=== PATIENT | female | born 1980 | race Caucasian/White ===

== ENCOUNTER 2017-11-26 11:10 | Emergency (ER) | payer OTHER ==
--- OUTSIDE RECORDS SUMMARY | 2017-11-26 11:28 | XMS REPORT | Continuity of Care Document ---
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 PO, Q12H, # 14 2015 [Pepcid] tab, 0 Refill(s) azithromycin 250 250 mg=1 tab, Active mg oral tablet PO, Daily, X 4 2015, # 4 tab, 0 Refill(s) Protonix 40 mg, 1 tab, No Longer Route: PO, Drug 2015 form: ECTAB, BID, Dosing Weight 77.6, kg, Priority: NOW, Start date: 07/18/15 19:17:00 CDT, Duration: 30 day, Stop date: 08/17/15 17:00:00 CDTNotes: Tablet should not be chewed or crushed. (Same as: Protonix) Phenergan 25 mg, 50 mL, No Longer Route: IVPB, Active 2015 [facility] Drug form: SOLN, Q6H, Dosing Weight 77.6, kg, PRN Nausea & Vomiting, Priority: STAT, Start date: 07/18/15 19:17:00 CDT, Duration: 30 day, Stop date: 08/17/15 19:16:00 CDT GI cocktail 30 ml, Route: No Longer PO, Drug Form: Active 2015 SUSP, Dosing Weight 77.6, kg, Q4H, PRN Indigestion, Routine, Start date: 07/18/15 19:16:00 CDT, Duration: 30 day, Stop date: 08/17/15 19:15:00 CDT, DYSPEPSIANotes: G.I. Cocktail=antaci d with simethicone 22.5 mL - lidocaine viscous 7.5 mL Lovenox 40 mg, 0.4 mL, No Longer Route: SUB-Q, Active 2015 [facility] Drug form: INJ, [id number], Dosing Weight 77.6, kg, Start date: 07/18/15 17:00:00 CDT, Duration: 30 day, Stop date: 08/16/15 17:00:00 CDTNotes: (Same as: Lovenox) ferrous sulfate 325 mg, 1 tab, No Longer Route: PO, Drug Active 2015 [facility] form: TAB, Daily, Dosing Weight 77.6, kg, Priority: NOW, Start date: 07/18/15 16:53:00 CDT, Duration: 30 day, Stop date: 08/17/15 9:00:00 CDTNotes: Give with food. iron elemental [id number] as ferrous sulfate Dose=___mg elemental iron Azithromycin 500 mg, Route: No Longer IVPB, [id number], Active 2015 [facility] Dosing Weight 77.6, kg, Priority: NOW, Start date: 07/18/15 16:44:00 CDT, Duration: 30 day, Stop date: 08/16/15 16:44:00 CDTNotes: (Same As: Zithromax IV) Prednisone 40 mg, 2 tab, No Longer Route: PO, Drug Active 2015 [facility] form: TAB, Daily, Dosing Weight 77.6, kg, Priority: NOW, Start date: 07/18/15 15:51:00 CDT, Duration: 30 day, Stop date: 08/17/15 9:00:00 CDTNotes: Take with food. Benadryl 25 mg, 1 tab, No Longer Route: PO, Drug Active 2015 [facility] form: TAB, TID, Dosing Weight 77.6, kg, PRN Itching, Start date: 07/18/15 15:49:00 CDT, Duration: 30 day, Stop date: 08/17/15 15:48:00 CDT Albuterol 0.833 3 ml, Route: No Longer MG/ML / NEB, Drug Form: Active 2015 [facility] Ipratropium SOLN, Dosing [place] 0.167 Weight 77.6, MG/ML Inhalant kg, [id number], Solution [DuoNeb] PRN as needed for shortness of breath or wheezing, Start date: 07/18/15 9:58:00 CDT, Duration: 30 day, Stop date: 08/17/15 9:57:00 CDTNotes: (Same as: Duoneb) Ativan 1 mg, 0.5 mL, Inactive Route: IVP, 2015 [facility] Drug form: INJ, ONCE, Dosing Weight 77.6, kg, PRN Anxiety, Start date: 07/18/15 9:56:00 CDTNotes: (Same as: Ativan) Thyroxine 75 microgram, 1 No Longer tab, Route: PO, Active 2015 [facility] Drug form: TAB, Daily, Dosing Weight 77.6, kg, Start date: 07/18/15 6:30:00 CDT, Duration: 30 day, Stop date: 08/16/15 6:30:00 CDTNotes: Take 1 hour before or 2 hours after meal; Enteral feeds may interefere with the absorption of this medication. (Same as:Synthroid, Levothroid) Seroquel 400 mg, 4 tab, No Longer Route: PO, Drug Active 2015 [facility] form: TAB, Daily, Dosing Weight 77.6, kg, Start date: 07/17/15 21:00:00 CDT, Duration: 30 day, Stop date: 08/15/15 21:00:00 CDTNotes: (Same as: SEROquel) pantoprazole 40 mg, 1 tab, Inactive Route: PO, Drug 2015 [facility] form: ECTAB, Before Dinner, Dosing Weight 75, kg, Start date: 07/17/15 16:30:00 CDT, Duration: 30 day, Stop date: 08/15/15 16:30:00 CDTNotes: Tablet should not be chewed or crushed. (Same as: Protonix) Albuterol 0.833 3 ml, Route: No Longer MG/ML / NEB, Drug Form: Active 2015 [facility] Ipratropium SOLN, Dosing [place] 0.167 Weight 77.6, MG/ML Inhalant kg, [id number], Solution [DuoNeb] Start date: 07/17/15 15:00:00 CDT, Duration: 30 day, Stop date: 08/16/15 11:00:00 CDTNotes: (Same as: Duoneb) Solu-Medrol 60 mg, 1.5 mL, No Longer Route: IV, Drug Active 2015 [facility] form: INJ, Q6H, Dosing Weight 77.6, kg, Start date: 07/17/15 12:00:00 CDT, Duration: 30 day, Stop date: 08/16/15 6:00:00 CDTNotes: (Same as:Solu-MEDROL, A-Methapred) Benadryl 25 mg, 1 tab, No Longer Route: PO, Drug Active 2015 [facility] form: TAB, Q4H, Dosing Weight 77.6, kg, Start date: 07/17/15 12:00:00 CDT, Duration: 30 day, Stop date: 08/16/15 8:00:00 CDT Robitussin-AC 5 ml, Route: No Longer oral syrup PO, Drug Form: Active 2015 [facility] LIQ, Dosing Weight 77.6, kg, Q4H, PRN Cough/Congestio n, Start date: 07/17/15 11:59:00 CDT, Duration: 30 day, Stop date: 08/16/15 11:58:00 CDTNotes: (Same As: Robitussin AC) Albuterol 0.833 3 ml, Route: Inactive MG/ML / NEB, Drug Form: 2015 [facility] Ipratropium SOLN, Dosing [place] 0.167 Weight 77.6, MG/ML Inhalant kg, PRN, PRN Solution [DuoNeb] Respiratory Protocol, Start date: 07/17/15 11:59:00 CDT, Duration: 30 day, Stop date: 08/16/15 11:58:00 CDT Hydroxyzine 50 mg, PO, QID, Active Hydrochloride 50 PRN as needed 2015 [place] [facility] Oral Tablet for anxiety hydrOXYzine 50 mg, 2 tab, No Longer hydrochloride 25 Route: PO, Drug Active 2015 [place] mg oral tablet form: TAB, QID, PRN Anxiety, Start date: 07/17/15 10:30:00 CDT, Duration: 30 day, Stop date: 08/16/15 10:29:00 CDTNotes: (Same as: Atarax) Avoid alcohol. lamotrigine 100 100 mg, 1 tab, No Longer MG Oral Tablet Route: PO, Drug Active 2015 [facility] form: TAB, BID, Dosing Weight 77.6, kg, Start date: 07/17/15 10:00:00 CDT, Duration: 30 day, Stop date: 08/16/15 9:00:00 CDTNotes: (Same as:LaMICtal) Cymbalta 60 mg, 1 cap, No Longer Route: PO, Drug Active 2015 [facility] form: DRC, BID, Dosing Weight 77.6, kg, Start date: 07/17/15 10:00:00 CDT, Duration: 30 day, Stop date: 08/16/15 9:00:00 CDTNotes: (Same as: Cymbalta) (Do Not Crush) Famotidine 20 MG 20 mg, 1 tab, No Longer Oral Tablet Route: PO, Drug Active 2015 [Pepcid] form: TAB, Q12H, Dosing Weight 77.6, kg, Priority: NOW, Start date: 07/17/15 9:04:00 CDT, Duration: 30 day, Stop date: 08/16/15 9:00:00 CDTNotes: (Same as: Pepcid) Hydroxyzine 50 mg, 1 cap, Inactive Hydrochloride 50 Route: PO, Drug 2015 [facility] Oral Capsule form: CAP, QID, Dosing Weight 77.6, kg, PRN Anxiety, Start date: 07/17/15 9:03:00 CDT, Duration: 30 day, Stop date: 08/16/15 9:02:00 CDT Pepcid 20 mg, 2 mL, Inactive Route: IV, Drug 2015 form: INJ, Q12H, Dosing Weight 75, kg, Start date: 07/17/15 9:00:00 CDT, Duration: 30 day, Stop date: 08/15/15 21:00:00 CDT, Notes: (Same as: Pepcid) Can be dilute in 5-10cc NS IVP: Slow IV push over at least 2 minutes. Saline Flush 0.9% 10 ml, Route: No Longer IVP, Drug Form: Active 2015 INJ, Dosing Weight 75, kg, Q12H, Start date: 07/17/15 9:00:00 CDT, Duration: 30 day, Stop date: 08/15/15 21:00:00 CDTNotes: (Same as: BD Posiflush) Hydroxyzine 50 mg=1 cap, Inactive Hydrochloride 50 PO, QID, PRN 2015 [place] MG Oral Capsule Anxiety, # 40 cap, 0 Refill(s) Insulin, Aspart, 2 unit, 0.02 No Longer Human mL, Route: Active 2015 [facility] SUB-Q, Drug form: SOLN, Sliding Scale, Dosing Weight 77.6, kg, PRN Blood Glucose Results, Start date: 07/17/15 7:27:00 CDT, Duration: 30 day, Stop date: 08/16/15 7:26:00 CDTNotes: Roll in palms of hands gently; Do not shake vigorously. (Same as: NovoLOG) "single patient use only" WASTE: F/P - Black; E - Municipal Trash Bin Stable for 28 days at room temperature. Expires in days from D ate Glucagon 1 mg, Route: No Longer IM, Drug form: Active 2015 [facility] PDR/INJ, PRN, Dosing Weight 77.6, kg, PRN Blood Glucose Results, Start date: 07/17/15 7:27:00 CDT, Duration: 30 day, Stop date: 08/16/15 7:26:00 CDT Dextrose 50% 25 gm, 50 mL, No Longer Syringe Route: IVP, Active 2015 [facility] Drug Form: INJ, Dosing Weight 77.6, kg, PRN, PRN Blood Glucose Results, Start date: 07/17/15 7:27:00 CDT, Duration: 30 day, Stop date: 08/16/15 7:26:00 CDT Acetaminophen 325 1 tab, PO, Q6H, Active MG / Hydrocodone PRN Pain, # 28 2015 [facility] Bitartrate 7.5 MG tab, 0 Oral Tablet Refill(s) Benadryl 12.5 mg, 0.25 No Longer mL, Route: IVP, Active 2015 [facility] Drug form: INJ, Q4H, Dosing Weight 75, kg, Priority: STAT, Start date: 07/16/15 21:29:00 CDT, Stop date: 08/15/15 20:00:00 CDTNotes: (Same as: Benadryl) Calcium Carbonate 500 mg, 1 tab, No Longer 500 MG Chewable Route: PO, Drug Active 2015 Tablet form: CHEWTAB, PRN, Dosing Weight 75, kg, PRN Abnormal Lab Result, FOR ICU USE ONLY, Start date: 07/16/15 21:26:00 CDT, Duration: 30 day, Stop date: 08/15/15 21:25:00 CDTNotes: (Same As: Tums) Calcium Carbonate 500 vp=226 mg elemental calcium Dose= mg calcium carbonate ( mg elemental calcium) Calcium Gluconate 1 gm, 10 mL, No Longer Route: [id number] PRN, Dosing Weight 75, kg, PRN Abnormal Lab Result, Start date: 07/16/15 21:26:00 CDT, Duration: 30 day, Stop date: 08/15/15 21:25:00 CDT, FOR ICU USE ONLYNotes: WASTE: F/P - Sink; E - Municipal Trash Bin potassium 20 mEq, 100 mL, No Longer chloride Route: IVPB 2015 Drug form: INJ, PRN, Dosing Weight 75, kg, PRN Abnormal Lab Result, Via central line, Start date: 07/16/15 21:26:00 CDT, Duration: 30 day, Stop date: 08/15/15 21:25:00 CDT, FOR ICU USE ONLYNotes: (Same as: KCL) Infuse no faster than 10 mEq/hr if given peripherally. sodium phosphate 15 mmol, 5 mL, No Longer + Sodium Chloride Route: [id number] 0.9% IV 250 mL PRN, Dosing Weight 75, kg, PRN Abnormal Lab Result, Start date: 07/16/15 21:26:00 CDT, Duration: 30 day, Stop date: 08/15/15 21:25:00 CDT, FOR ICU USE ONLY potassium 15 mmol, 5 mL, No Longer phosphate + Route: [id number] Sodium Chloride PRN, Dosing 0.9% IV 250 mL Weight 75, kg, PRN Abnormal Lab Result, Start date: 07/16/15 21:26:00 CDT, Duration: 30 day, Stop date: 08/15/15 21:25:00 CDT, FOR ICU USE ONLYNotes: (Same as: K Phosphate.) 1 mMol phoshate has 1.47 mEq potassium Infuse over 4 hours Magnesium Sulfate 2 gm, 50 mL, No Longer Route: IVPB, Active 2015 [facility] Drug form: INJ, PRN, Dosing Weight 75, kg, PRN Abnormal Lab Result, Start date: 07/16/15 21:26:00 CDT, Duration: 30 day, Stop date: 08/15/15 21:25:00 CDT, FOR ICU USE ONLYNotes: WASTE: F/P - Sink; E - Municipal Trash Bin Neutra-Phos 2 pkt, Route: No Longer PO, Drug Form: Active 2015 [facility] PDR/REC, Dosing Weight 75, kg, PRN, PRN Abnormal Lab Result, FOR ICU USE ONLY, Start date: 07/16/15 21:26:00 CDT, Duration: 30 day, Stop date: 08/15/15 21:25:00 CDTNotes: (Same as: Neutra-Phos) Each 1.25 gm pkt has 250mg phosphorous. Mix w/2.5oz water and stir. Magnesium Oxide 800 mg, 2 tab, No Longer Route: PO, Drug Active 2015 [facility] form: TAB, PRN, Dosing Weight 75, kg, PRN Abnormal Lab Result, FOR ICU USE ONLY, Start date: 07/16/15 21:26:00 CDT, Duration: 30 day, Stop date: 08/15/15::00 CDTNotes: (Same as: Mag-Ox 400) Magnesium oxide 183oz=015qa elemental magnesium Dose=____mg magnesium oxide (___mg elemental magnesium) Acetaminophen 325 2 tab, Route: No Longer MG / Hydrocodone PO, Drug Form: Active 2015 [facility] Bitartrate 5 MG TAB, Dosing Oral Tablet Weight 75, kg, [[place] 5/325] Q4H, PRN Pain Score 4-6, Start date: 07/16/15:26:00 CDT, Duration: 30 day, Stop date: 08/15/15 21:: CDTNotes: (Same as: [place] 325/5) Do not exceed 4gm/day of acetaminophen. Morphine 2 mg, 1 mL, No Longer Route: IVP, Active 2015 [facility] Drug form: INJ, Q2H, Dosing Weight 75, kg, PRN Pain Score 7-10, Start date: 07/16/15:26:00 CDT, Duration: 30 day, Stop date: 08/15/15:: CDTNotes: (Same as:MORPhine Sulfate) Saline Flush 0.9% 10 ml, Route: No Longer IVP, Drug Form: 2015 [facility] INJ, Dosing Weight 75, kg, PRN, PRN Line Flush, Start date: 07/16/15:26:00 CDT, Duration: 30 day, Stop date: 08/15/15:: CDTNotes: (Same as: BD Posiflush) Lactulose 20 gm, 30 ml, No Longer Route: PO, Drug Active 2015 [facility] Form: SYRP, Dosing Weight 75, kg, Q6H, PRN as needed for constipation, Start date: 07/16/15:26:00 CDT, Duration: 30 day, Stop date: 08/15/15:: CDTNotes: (Same as:Chronulac) Docusate 100 mg, 1 cap, No Longer Route: PO, Drug Active 2015 [facility] form: CAP, Q12H, Dosing Weight 75, kg, PRN as needed for constipation, Start date: 07/16/15:26:00 CDT, Duration: 30 day, Stop date: 08/15/15:: CDTNotes: (Same as: Colace) (Do Not Crush) Bisacodyl 10 mg, 1 supp, No Longer Route: SD, Drug Active 2015 [facility] form: SUPP, Daily, Dosing Weight 75, kg, PRN Other -See Comment, Start date: 07/16/15 21:26:00 CDT, Duration: 30 day, Stop date: 08/15/15:25:00 CDTNotes: (Same As: Dulcolax, Bisco-Lax) Ondansetron 4 mg, Route: No Longer IVP, Q8H, Active 2015 [facility] Dosing Weight 75, kg, PRN Nausea & Vomiting, Start date: 07/16/15 21:26:00 CDT, Duration: 30 day, Stop date: 08/15/15 21:25:00 CDT Albuterol 0.833 3 ml, Route: No Longer MG/ML / NEB, Drug Form: Active 2015 [facility] Ipratropium SOLN, Dosing [place] 0.167 Weight 75, kg, MG/ML Inhalant PRN, PRN Solution Respiratory Protocol, Start date: 07/16/15 21:26:00 CDT, Duration: 30 day, Stop date: 08/15/15 21:25:00 CDTNotes: (Same as: Duoneb) Acetaminophen 650 mg, 2 tab, No Longer Route: PO, Drug Active 2015 [facility] form: TAB, Q4H, Dosing Weight 75, kg, PRN For Temp > 100.4 F, Start date: 07/16/15 21:26:00 CDT, Duration: 30 day, Stop date: 08/15/15 21:25:00 CDTNotes: Do not exceed 4 gm/day. (Same as: Tylenol) Ipratropium 0.5 mg, 2.5 mL, No Longer Route: Active 2015 [facility] INHALATION, Drug form: SOLN, Q20Min, Dosing Weight 75, kg, PRN Allergic reaction, Priority: STAT, Start date: 07/16/15 21:23:00 CDT, Duration: 3 doses or times, Stop date: Limited # of timesNotes: SEE RT DOCUMENTATION (Same as:Atrovent) Benadryl 25 mg, Route: Inactive IVP, ONCE, 2015 [facility] Dosing Weight 75, kg, Priority: STAT, Start date: 07/16/15 19:28:00 CDT, Stop date: 07/16/15 19:28:00 CDT Racepinephrine 0.5 mL, Route: Inactive 22.5 MG/ML NEB, Dosing 2015 [facility] Inhalant Solution Weight 75, kg, ONCE, STAT, Start date: 07/16/15 19:20:00 CDT, Stop date: 07/16/15 19:20:00 CDT Albuterol 0.833 9 mL, Route: Inactive MG/ML / NEB, Dosing 2015 [facility] Ipratropium Weight 75, kg, [place] 0.167 ONCE, Start MG/ML Inhalant date: 07/16/15 Solution [DuoNeb] 19:20:00 CDT, Stop date: 07/16/15 19:20:00 CDT Pepcid 40 mg, 4 mL, Inactive Route: IV, Drug 2015 [facility] form: INJ, ONCE, Dosing Weight 75, kg, Start date: 07/16/15 17:56:00 CDT, Stop date: 07/16/15 17:56:00 CDTNotes: (Same as: Pepcid) Can be dilute in 5-10cc NS IVP: Slow IV push over at least 2 minutes. EPINEPHrine 1 0.5 mg, 0.5 mL, No Longer mg/mL (1:1000) Route: IM, Drug Active 2015 [facility] injectable form: INJ, solution Q5Min, Dosing Weight 75, kg, PRN as needed for shortness of breath or wheezing, Start date: 07/16/15 17:55:00 CDT, Duration: 30 day, Stop date: 08/15/15 17:54:00 CDTNotes: (Same as: Adrenalin) [employer] - Injectable drug used as inhalation treatment. MEDICATION WASTE Product Size: 1 mg Product Wasted: 0.5 mg Racepinephrine 0.5 mL, Route: Inactive NEB, Dosing 2015 [facility] Weight 75, kg, ONCE, STAT, Start date: 07/16/15 17:54:00 CDT, Stop date: 07/16/15 17:54:00 CDT Albuterol 0.833 3 mL, Route: Inactive MG/ML / NEB, Drug Form: 2015 [facility] Ipratropium SOLN, Dosing [place] 0.167 Weight 75, kg, MG/ML Inhalant ONCE, STAT, Solution Start date: 07/16/15 17:54:00 CDT, Stop date: 07/16/15 17:54:00 CDT EPINEPHrine 1 0.5 mg, Route: Inactive mg/mL (1:1000) IM, ONCE, 2015 [facility] injectable Dosing Weight solution 75, kg, Priority: STAT, Start date: 07/16/15 17:54:00 CDT, Stop date: 07/16/15 17:54:00 CDT Saline Flush 0.9% 10 mL, Route: Inactive IVP, Drug Form: 2015 [facility] INJ, Dosing Weight 75, kg, PRN, PRN Line Flush, Start date: 07/16/15 17:54:00 CDT, Duration: 30 day, Stop date: 08/15/15 17:53:00 CDTNotes: (Same as: BD Posiflush) Acetaminophen 300 1 - 2 tab, PO, Active Greater MG / Codeine Q4H, PRN Pain, 2015 [facility] Phosphate 30 MG X 4 day, # 36 Oral Tablet tab, 0 [Tylenol with Refill(s) Codeine #3] Acetaminophen 325 2 tab, Route: Inactive Greater MG / Hydrocodone PO, Drug Form: 2015 [facility] Bitartrate 5 MG TAB, Dosing Oral Tablet Weight 76.364, [[place] 5/325] kg, ONCE, STAT, Start date: 06/25/15 15:58:00, Stop date: 06/25/15 15:58:00 Flexeril 10 mg, Route: Inactive Greater PO, ONCE, 2015 [facility] Dosing Weight 76.364, kg, Priority: STAT, Start date: 06/25/15 15:54:00, Stop date: 06/25/15 15:54:00 Tylenol 650 mg, Route: Inactive Greater PO, Drug form: 2015 [facility] TAB, ONCE, Dosing Weight 76.364, kg, Priority: STAT, Start date: 06/25/15 15:24:00, Stop date: 06/25/15 15:24:00 Ondansetron 4 mg, 2 mL, Inactive Greater Route: IVP, 2015 [facility] Drug form: INJ, ONCE, Dosing Weight 75, kg, PRN Nausea & Vomiting, Start date: 06/08/15 11:16:00Notes: (Same as: Iggy) MEDICATION WASTE Product Size: 4 mg Product Wasted: ___ mg Flumazenil 0.2 mg, 2 mL, Inactive Route: IVP2015 Drug form: INJ, PRN, Dosing Weight 75, kg, PRN Benzodiazepine Reversal, Initial dose, Start date: 06/08/15 11:16:00, Duration: 30 day, Stop date: 07/08/15 12:15:00Notes: (Same as: Romazicon) Naloxone 0.04 mg, 0.1 Inactive Greater mL, Route: IVP2015 Drug form: INJ, Q2MIN, Dosing Weight 75, kg, PRN Narcotic Reversal, Start date: 06/08/15 11:16:00, Duration: 8 doses or times, Stop date: Limited # of timesNotes: Same as Narcan Meperidine 12.5 mg, 0.5 Inactive mL, Route: IV2015 Drug form: INJ, Q30Min, Dosing Weight 75, kg, PRN Other -See Comment, For shivering, Start date: 06/08/15 11:16:00, Duration: 2 doses or times, Stop date: Limited # of timesNotes: (Same as: Demerol) "Use Precaution in Elderly, Seizure disorders, and Renal impairment&quot ; Morphine 4 mg, 1 mL, Inactive Route: IVP2015 Drug form: INJ, Q5Min, Dosing Weight 75, kg, PRN Pain Score 7-10, Start date: 06/08/15 11:16:00, Duration: 3 doses or times, Stop date: Limited # of timesNotes: (Same as:MORPhine Sulfate) Oxycodone 5 mg, 1 tab, Inactive Route: PO, Drug 2015 form: TAB, Q4H, Dosing Weight 75, kg, PRN Pain Score 4-6, Start date: 06/08/15 11:16:00, Duration: 30 day, Stop date: 07/08/15 11:15:00Notes: (Same as: Roxicodone) Metoprolol 1 mg, 1 mL, Inactive Route: IVP2015 Drug form: INJ, Q5Min, Dosing Weight 75, kg, PRN Other -See Comment, Start date: 06/08/15 11:16:00, Duration: 5 doses or times, Stop date: Limited # of timesNotes: (Same as: Lopressor) Push over 2 minutes Hydralazine 10 mg, 0.5 mL, Inactive 03/04/ [facility] Route: IVP, 2015 Drug form: INJ, Q20Min, Dosing Weight 75, kg, PRN Elevated BP, Start date: 06/08/15 11:16:00, Duration: 2 doses or times, Stop date: Limited # of timesNotes: (Same as: Apresoline) Push over 5 minutes Acetaminophen 325 1-2 tab, PO, Active /04/ [facility] MG / Hydrocodone Q6H, PRN Pain, 2015 Bitartrate 10 MG X 5 day, # 30 Oral Tablet tab, 0 [[place] 10/325] Refill(s) promethazine Route: IV, Drug Inactive 03/04/ [facility] (ANES) form: INJ, 2015 ONCE, Stop date: 06/08/15 10:14:00 hydromorphone Route: IV, Drug Inactive 03/04/ [facility] (ANES) form: INJ2015 ONCE, Stop date: 06/08/15 9:57:00 acetaminophen Route: IV, Drug Inactive 03/04/ [facility] (ANES) form: INJ2015 ONCE, Stop date: 06/08/15 9:47:00 dexamethasone Route: IV, Drug Inactive 03/04/ [facility] (ANES) form: 2015, Stop date: 06/08/15 9:32:00 vancomycin (ANES) Route: IV, Drug Inactive 03/04/ [facility] form: INJ2015 ONCE, Stop date: 06/08/15 9:32:00 ceFAZolin (ANES) Route: IV, Drug Inactive 03/04/ [facility] form: 2015, Stop date: 06/08/15 9:32:00 ondansetron Route: IV, Drug Inactive 03/04/ [facility] (ANES) form: 2015, Stop date: 06/08/15 9:32:00 famotidine (ANES) Route: IV, Drug Inactive 03/04/ [facility] form: INJ2015 ONCE, Stop date: 06/08/15 9:32:00 propofol (ANES) Route: IV, Drug Inactive 04/ [facility] form: INJ, 2015 ONCE, Stop date: 06/08/15 9:27:00 fentaNYL (ANES) Route: IV, Drug Inactive /04/ [facility] form: INJ, 2015 ONCE, Stop date: 06/08/15 9:22:00 lidocaine (ANES) Route: IV, Drug Inactive /04/ [facility] form: INJ, 2015, Stop date: 06/08/15 9:17:00 midazolam (ANES) Route: IV, Drug Inactive /04/ [facility] form: SOLN, 2015, Stop date: 06/08/15 9:17:00 vancomycin (ANES) Route: IV, Drug Inactive /04/ [facility] (ANES) form: INJ, 2015 Start date: 06/08/15 8:47:00, Stop date: 06/08/15 9:47:00 Lactated Ringers Route: IV, Inactive 04/ [facility] Injection IV Total Volume: 2015 (ANES) (ANES) 1,000, Start date: 06/08/15 8:39:00, Stop date: 06/08/15 9:39:00 Calcium Chloride 1,000 mL, Rate: Inactive [facility] 0.0014 MEQ/ML / 25 ml/hr, 2015 Potassium Infuse over: 40 Chloride 0.004 hr, Route: IV, MEQ/ML / Sodium Dosing Weight Chloride 0.103 75 kg, Total MEQ/ML / Sodium Volume: 1,000, Lactate 0.028 Start date: MEQ/ML Injectable 06/08/15 Solution 8:20:00, Duration: 30 day, Stop date: 07/08/15 8:19:00 Alprazolam 1 MG 1 mg=1 tab, PO, Active [facility] Oral Tablet TID, PRN 2015 [Xanax] Anxiety, 0 Refill(s) Ibuprofen 200 MG 400 mg=2 tab, Active [facility] Oral Tablet PO, Q4H, PRN 2015 [Advil] Pain, # 120 tab, 0 Refill(s) Acetaminophen 500 1,000 mg=2 tab, Active [facility] MG Oral Tablet PO, Q4H, PRN 2015 [facility] [Tylenol] Pain, # 120 tab, 0 Refill(s) lamotrigine 100 100 mg=1 tab, Active Greater MG Oral Tablet PO, BID, # 60 2015 [facility] tab, 0 Refill(s) estradiol 2 mg 2 mg=1 tab, PO, Active Greater oral tablet Daily, # 30 2015 [facility] tab, 0 Refill(s) Tylenol 975 mg, Route: Inactive PO, Drug form: 2015 [place] TAB, ONCE, Dosing Weight 74.091, kg, Priority: STAT, Start date: 06/04/15 8:41:00, Stop date: 06/04/15 8:41:00 tramadol 50 mg, Route: Inactive hydrochloride 50 PO, Drug form: 2015 [place] MG Oral Tablet TAB, ONCE, [Ultram] Dosing Weight 74.091, kg, Priority: STAT, Start date: 06/04/15 7:53:00, Stop date: 06/04/15 7:53:00 Acetaminophen 300 1 - 2 tab, PO, Active MG / Codeine Q6H, PRN Pain, 2015 [facility] Phosphate 60 MG X 4 day, # 32 [facility] Oral Tablet tab, 0 [Tylenol with Refill(s) Codeine #4] Hydromorphone 1 mg, Route: Inactive IM, ONCE, 2015 [facility] Dosing Weight [place] 74.091, kg, Priority: STAT, Start date: 05/24/15 21:25:00, Stop date: 05/24/15 21:25:00 Saline Flush 0.9% 10 mL, Route: No Longer IVP, Drug Form: Active 2015 [facility] INJ, Dosing City Weight 74.091, kg, PRN, PRN Line Flush, Start date: 05/24/15 19:57:00, Duration: 30 day, Stop date: 06/23/15 20:56:00Notes: (Same as: BD Posiflush) Acetaminophen 300 1 - 2 tab, PO, Active MG / Codeine Q6H, PRN Pain, 2015 [facility] Phosphate 30 MG X 4 day, # 32 [place] Oral Tablet tab, 0 [Tylenol with Refill(s) Codeine #3] Dilaudid 0.5 mg, 0.5 mL, Inactive Route: IVP, [address] [place] [address] Drug form: INJ, City ONCE, Dosing Weight 72.727, kg, Priority: STAT, Start date: 05/07/15 22:42:00, Stop date: 05/07/15 22:42:00Notes: Same as: Dilaudid Promethazine 12.5 mg, 1 tab, Inactive Route: PO, Drug 2015 [facility] form: TAB, City ONCE, Dosing Weight 72.727, kg, Priority: STAT, Start date: 05/07/15 22:42:00, Stop date: 05/07/15 22:42:00Notes: (Same as: Phenergan) tramadol 50 mg=1 tab, Active hydrochloride 50 PO, Q4H, PRN 2015 [place] Oral Tablet Pain, X 3 day, # 18 tab, 0 Refill(s) Phenergan 25 mg, 1 tab, Inactive Route: PO, Drug 2015 [facility] form: TAB, ONCE, Dosing Weight 75.318, kg, Priority: STAT, Start date: 04/14/15 15:20:00, Stop date: 04/14/15 15:20:00Notes: (Same as: Phenergan) Acetaminophen 325 1 tab, Route: Inactive MG / Hydrocodone PO, Drug Form: 2015 [facility] Bitartrate 10 MG TAB, Dosing Oral Tablet Weight 75.318, [[place] 10/325] kg, ONCE, STAT, Start date: 04/14/15 15:20:00, Stop date: 04/14/15 15:20:00 Metoclopramide 10 mg, 1 tab, Inactive Greater Route: PO, Drug 2015 [facility] form: TAB, ONCE, Dosing Weight 74.545, kg, Priority: STAT, Start date: 04/13/15 12:50:00, Stop date: 04/13/15 12:50:00Notes: (Same as: Reglan) Take 30 min before meals Morphine 4 mg, 1 mL, Inactive Greater Route: IM, Drug 2015 [facility] form: INJ, ONCE, Dosing Weight 74.545, kg, Priority: STAT, Start date: 04/13/15 12:49:00, Stop date: 04/13/15 12:49:00Notes: (Same as:MORPhine Sulfate) Acetaminophen 300 1 tab, PO, TID, Active Greater MG / Codeine PRN for pain, # 2016 [place] Phosphate 30 MG 12 tab, 0 Oral Tablet Refill(s) [Tylenol with Codeine #3] acetaminophen-cod 1 tab, Route: Inactive Greater eine #3 PO, Dosing 2016 [place] Weight 74.545, kg, ONCE, STAT, Start date: 04/13/15 12:15:00, Stop date: 04/13/15 12:15:00 Acetaminophen 325 1 tab, Route: Inactive Greater MG / Hydrocodone PO, Drug Form: 2015 [facility] Bitartrate 5 MG TAB, Dosing Oral Tablet Weight 72.727, [[place] 5/325] kg, ONCE, STAT, Start date: 04/13/15 11:45:00, Stop date: 04/13/15 11:45:00 lamotrigine 25 MG 25 mg=1 tab, Active Oral Tablet PO, BID, # 60 2014 [facility] [Lamictal] tab, 0 City Refill(s) topiramate 100 MG 100 mg=1 tab, Active Oral Tablet PO, BID, # 60 2014 [facility] [Topamax] tab, 0 [place] Refill(s) Topamax 100 mg, 1 tab, Inactive Route: PO, Drug 2014 [facility] form: TAB, City ONCE, Dosing Weight 72.727, kg, Start date: 01/04/15 10:54:00, Stop date: 01/04/15 10:54:00Notes: (Same As: Topamax) "Do Not Crush" Sodium Chloride 500 mL, 500 Inactive 0.154 MEQ/ML ml/hr, Infuse 2014 [facility] Injectable Over: 1 hr, [facility] Solution Route: IV, 500, Drug form: INJ, ONCE, Priority: STAT, Dosing Weight 72.727 kg, Start date: 01/04/15 9:39:00, Duration: 1 doses or times, Stop date: 01/04/15 9:39:00 Phenergan 6.25 mg, 0.5 Inactive tab, Route: PO, 2014 [facility] Drug form: TAB, [facility] ONCE, Dosing Weight 72.727, kg, Priority: STAT, Start date: 01/04/15 9:39:00, Stop date: 01/04/15 9:39:00Notes: (Same as: Phenergan) Lamictal 25 mg, 1 tab, Inactive Route: PO, Drug 2014 [facility] form: TAB, [facility] ONCE, Dosing Weight 72.727, kg, Start date: 01/04/15 9:37:00, Stop date: 01/04/15 9:37:00Notes: (Same as:LaMICtal) Saline Flush 0.9% 10 mL, Route: Inactive IVP, Drug Form: 2014 [facility] INJ, Dosing City Weight 72.727, kg, PRN, PRN Line Flush, Start date: 01/04/15 9:37:00, Duration: 30 day, Stop date: 02/03/15 9:36:00Notes: (Same as: BD Posiflush) 0.3 ML 0.3 mg, IM, Active Epinephrine 1 ONCE, as needed 2014 [facility] MG/ML Prefilled for severe [facility] Syringe [Epipen] allergic reaction, # 1 unit, 0 Refill(s)Specia l Instructions: as needed for severe allergic reaction predniSONE 20 mg 40 mg=2 tab, Active oral tablet PO, Daily, X 5 2014, # 10 tab, City 0 Refill(s) Diphenhydramine 50 mg=2 cap, Active Hydrochloride 25 PO, Q6H, PRN 2014 [facility] MG Oral Capsule Itching, X 3 [Benadryl] , # 24 cap, 0 Refill(s) Famotidine 40 MG 40 mg, 1 tab, Inactive Oral Tablet Route: PO, Drug 2014 [facility] [Pepcid] form: TAB, [facility] ONCE, Dosing Weight 71.818, kg, Start date: 11/16/14 13:11:00, Stop date: 11/16/14 13:11:00 Solu-Medrol 125 mg, 2 mL, Inactive Route: IVP, 2014 [facility] Drug form: INJ, [place] ONCE, Dosing Weight 71.818, kg, Priority: STAT, Start date: 11/16/14 12:50:00, Stop date: 11/16/14 12:50:00Notes: (Same as:Solu-MEDROL, A-Methapred) Sodium Chloride 1,000 mL, 1,000 Inactive 0.154 MEQ/ML ml/hr, Infuse 2014 [facility] Injectable Over: 1 hr, [facility] Solution Route: IV, 1,000, Drug form: INJ, ONCE, Priority: STAT, Dosing Weight 71.818 kg, Start date: 11/16/14 12:50:00, Duration: 1 doses or times, Stop date: 11/16/14 12:50:00 Nicholas Gomez No Longer 0.1mg/24 hr 0.1mg/24 hr Active 2014 [facility] transdermal patch transdermal [facility] patch, 1 patch, Drug form: MISC, Route: TOP, QFri, 06/30/14 9:00:00, Duration: 30 day, Stop date: 07/28/14 9:00:00 zolpidem 12.5 mg, Route: No Longer PO, Bedtime, Active 2014 [facility] Dosing Weight [facility] 31.08, kg, Start date: 06/29/14 21:00:00, Duration: 30 day, Stop date: 07/28/14 21:00:00 Seroquel 600 mg, 6 tab, Inactive Route: PO, Drug 2014 [facility] form: TAB, City Bedtime, Dosing Weight 31.08, kg, Start date: 06/29/14 21:00:00, Duration: 30 day, Stop date: 07/28/14 21:00:00Notes: (Same as: SEROquel) Chlordiazepoxide 1 cap, PO, QID, Active Hydrochloride 5 Stomach Upset, 2014 [facility] MG / Clidinium X 30 day, # 60 City bromide 2.5 MG cap, 0 Oral Capsule Refill(s) [Librax] Promethazine 12.5 mg=1 tab, Active Hydrochloride PO, Q6H, Nausea 2014 [facility] 12.5 MG Oral & Vomiting, # City Tablet 30 tab, 0 [Phenergan] Refill(s) Potassium 20 mEq, 15 mL, Inactive Chloride 1.33 Route: PO, Drug 2014 [facility] MEQ/ML Oral form: LIQ, Q2H, [facility] Solution Dosing Weight 31.08, kg, Priority: NOW, Start date: 06/29/14 9:14:00, Duration: 2 doses or times, Stop date: 06/29/14 11:15:00Notes: (Same as: Potassium Chloride) Phenergan 25 mg, 50 mL, Inactive Route: IVPB, 2014 [facility] Drug form: [facility] SOLN, Q8H, Dosing Weight 31.08, kg, PRN Nausea & Vomiting, Start date: 06/29/14 9:14:00, Duration: 30 day, Stop date: 07/29/14 9:13:00 Midodrine 5 mg, 1 tab, Inactive Route: PO, Drug 2014 [facility] form: TAB, BID, [facility] Dosing Weight 31.08, kg, Start date: 06/29/14 9:00:00, Duration: 30 day, Stop date: 07/28/14 17:00:00Notes: (Same as:Proamatine) Vyvanse 80 mg, Route: Inactive PO, Dosing 2014 [facility] Weight 31.08, City kg, QAM, Start date: 06/29/14 9:00:00, Duration: 30 day, Stop date: 07/28/14 9:00:00 Thyroxine Route: PO, Drug Inactive form: TAB, 2014 [facility] Daily, Dosing [facility] Weight 31.08, kg, Start date: 06/29/14 9:00:00, Duration: 30 day, Stop date: 07/28/14 9:00:00Notes: Take 1 hour before or 2 hours after meal; Enteral feeds may interefere with the absorption of this medication. (Same as:Synthroid, Levothroid) lamoTRIgine 25 mg 25 mg, 1 tab, Inactive oral tablet Route: PO, Drug 2014 [facility] form: TAB, BID, [facility] Dosing Weight 31.08, kg, Start date: 06/29/14 9:00:00, Duration: 30 day, Stop date: 07/28/14 17:00:00Notes: (Same as:LaMICtal) Vivelle-Dot 1 patch, Route: Inactive TOP, Drug Form: 2014 [facility] ERFILM, Dosing [facility] Weight 31.08, kg, Daily, Start date: 06/29/14 9:00:00, Duration: 30 day, Stop date: 07/28/14 9:00:00 Cymbalta 60 mg, 2 cap, Inactive Route: PO, Drug 2014 [facility] form: DRC, QA, [facility] Dosing Weight 31.08, kg, Start date: 06/29/14 9:00:00, Duration: 30 day, Stop date: 07/28/14 9:00:00Notes: (Same as: Cymbalta) (Do Not Crush) Vitamin C 500 mg, 1 tab, Inactive Route: PO, Drug 2014 [facility] form: TAB, [facility] Daily, Dosing Weight 31.08, kg, Start date: 06/29/14 9:00:00, Duration: 30 day, Stop date: 07/28/14 9:00:00Notes: (Same as: Vitamin C) multivitamin 1 tab, Route: Inactive PO, Drug Form: 2014 [facility] TAB, Dosing [facility] Weight 31.08, kg, Daily, Start date: 06/29/14 9:00:00, Duration: 30 day, Stop date: 07/28/14 9:00:00Notes: Give with food. (Same As: Glutofac)mult Vyvanse 80mg tab Vyvanse 80mg Inactive tab, 80 mg, 1 2014 [facility] tab, Drug form: [facility] MIS, Route: PO, QAM, 06/29/14 9:00:00, Duration: 30 day, Stop date: 07/28/14 9:00:00 Flagyl 500 mg, 100 mL, Inactive Route: IVPB 2014 [facility] Drug form: INJ, [facility] Q6H, Dosing Weight 67.727, kg, Start date: 06/29/14 2:00:00, Duration: 30 day, Stop date: 07/28/14 20:00:00Notes: (Same as: Flagyl) Avoid alcohol. Ciprofloxacin 400 mg, 200 mL, Inactive Route: IVPB2014 [facility] Drug form: INJ, City [id number], Dosing Weight 31.08, kg, Start date: 06/29/14 2:00:00, Duration: 30 day, Stop date: 07/28/14 14:00:00Notes: Do not refrigerate Dilaudid 0.5 mg, 0.25 Inactive mL, Route: IV, 2014 [facility] Drug form: INJ, [place] Q4H, Dosing Weight 31.08, kg, PRN Pain Score 7-10, Start date: 06/29/14 0:28:00, Duration: 30 day, Stop date: 07/29/14 0:27:00Notes: (Same as: Dilaudid) Ambien 5 mg, 1 tab, Inactive Route: PO, Drug 2014 [facility] form: TAB, City Bedtime, Start date: 06/29/14 0:00:00, Duration: 30 day, Stop date: 07/28/14 21:00:00Notes: (Same As: Ambien) tizanidine 4 mg, 1 tab, No Longer Route: PO, Drug Active 2014 [facility] form: TAB, Q8H, [facility] Dosing Weight 31.08, kg, PRN as needed for muscle spasm, Start date: 06/28/14 22:40:00, Duration: 30 day, Stop date: 07/28/14 22:39:00Notes: (Same As: Zanaflex) Alprazolam 0.5 MG 0.5 mg, 1 tab, No Longer Oral Tablet Route: PO, Drug Active 2014 [facility] [Xanax] form: TAB, TID, [facility] Dosing Weight 31.08, kg, PRN as needed for anxiety, Start date: 06/28/14 22:38:00, Duration: 30 day, Stop date: 07/28/14 22:37:00Notes: With food or milk (Same as: Xanax) duloxetine 60 MG 60 mg=1 cap, Active Enteric Coated PO, QAM, 0 2014 [facility] Capsule Refill(s) [facility] [Cymbalta] Xanax 0.5 mg, PO, Active TID, as needed 2014 [facility] for anxiety, 0 [facility] Refill(s) Vyvanse 80 mg=, PO, Active QAM, 0 2014 [facility] Refill(s) [facility] Seroquel 600 mg, PO, Active Bedtime, 0 2014 [facility] Refill(s) [facility] Ceftriaxone 1 gm, Route: No Longer IVPB, [id number], Active 2014 [facility] Dosing Weight [facility] 67.727, kg, Start date: 06/28/14 21:00:00, Duration: 30 day, Stop date: 07/27/14 21:00:00Notes: (Same As: Rocephin). Use with 100ml NS mini-bag PLUS and infuse over 30 min D5NS 1,000 mL 1,000 mL, Rate: No Longer 125 ml/hr, Active 2014 [facility] Infuse over: 8 [place] hr, Route: IV, Dosing Weight 67.727 kg, Total Volume: 1,000, Start date: 06/28/14 20:46:00, Duration: 30 day, Stop date: 07/28/14 20:45:00 Bisacodyl 10 mg, 1 supp, No Longer Route: SD, Drug [facility] 2014 [facility] form: SUPP, City Daily, Dosing Weight 67.727, kg, PRN Constipation, Start date: 06/28/14 20:44:00, Duration: 30 day, Stop date: 07/28/14 20:43:00Notes: (Same As: Dulcolax, Bisco-Lax) Acetaminophen 650 mg, 2 tab, No Longer Route: PO, Drug Active 2014 [facility] form: TAB, Q4H, [facility] Dosing Weight 67.727, kg, PRN Pain 1-3/Temp > 100.4 F, Start date: 06/28/14 20:43:00, Duration: 30 day, Stop date: 07/28/14 20:42:00Notes: Do not exceed 4 gm/day. (Same as: Tylenol) Flagyl 500 mg, 100 mL, Inactive Route: IVPB, 2014 [facility] Drug form: INJ, City ONCE, Dosing Weight 67.727, kg, Priority: STAT, Start date: 06/28/14 19:55:00, Stop date: 06/28/14 19:55:00Notes: (Same as: Flagyl) Avoid alcohol. Cipro 400 mg, Route: Inactive IVPB, ONCE, 2014 [facility] Dosing Weight [facility] 67.727, kg, Priority: STAT, Start date: 06/28/14 19:54:00, Stop date: 06/28/14 19:54:00 Sodium Chloride 1,000 mL, 1000 No Longer 0.154 MEQ/ML ml/hr, Infuse Active 2014 [facility] Injectable Over: 1 hr, [facility] Solution Route: IV, 1,000, Drug form: INJ, ONCE, Priority: STAT, Dosing Weight 67.727 kg, Start date: 06/28/14 18:46:00, Duration: 1 doses or times, Stop date: 06/28/14 18:46:00 Benadryl 25 mg, 0.5 mL, Inactive Route: IVP2014 [facility] Drug form: INJ, City ONCE, Dosing Weight 67.727, kg, Priority: STAT, Start date: 06/28/14 18:45:00, Stop date: 06/28/14 18:45:00Notes: (Same as: Benadryl) Reglan 10 mg, 2 mL, Inactive Route: IVP2014 [facility] Drug form: INJ, City ONCE, Dosing Weight 67.727, kg, Priority: STAT, Start date: 06/28/14 18:44:00, Stop date: 06/28/14 18:44:00Notes: (Same as: Reglan) Morphine 4 mg, 1 mL, Inactive Route: IVP2014 [facility] Drug form: INJ, [place] ONCE, Dosing Weight 67.727, kg, Priority: STAT, Start date: 06/28/14 18:44:00, Stop date: 06/28/14 18:44:00Notes: (Same as:MORPhine Sulfate) Sodium Chloride 1,000 mL, 1000 Inactive 06/28[facility] 0.154 MEQ/ML ml/hr, Infuse 2014 [facility] Injectable Over: 1 hr, [facility] Solution Route: IV, 1,000, Drug form: INJ, ONCE, Priority: STAT, Dosing Weight 67.727 kg, Start date: 06/28/14 15:46:00, Duration: 1 doses or times, Stop date: 06/28/14 15:46:00 Saline Flush 0.9% 10 mL, Route: No Longer IVP, Drug Form: Active 2014 [facility] INJ, [place]osing [place] Weight 67.727, kg, PRN, PRN Line Flush, Start date: 06/28/14 15:46:00, Duration: 30 day, Stop date: 07/28/14 15:45:00Notes: (Same as: BD Posiflush) Metronidazole 500 500 mg=1 tab, Active 06/23/ MH MG Oral Tablet PO, Q8H, # 30 2014 [facility] [Flagyl] tab, 0 Refill(s) Ciprofloxacin 500 500 mg=1 tab, Active 06/23/ MH MG Oral Tablet PO, Q12H, # 20 2014 [facility] [Cipro] tab, 0 Refill(s) Docusate Sodium 100 mg=1 cap, Active 06/23/ MH 100 MG Oral PO, BID, 2014 [facility] Capsule [Colace] Constipation, # 20 cap, 0 Refill(s) Acetaminophen 325 1 tab, Route: Inactive 06/23/ MH MG / Hydrocodone PO, Drug Form: 2014 [facility] Bitartrate 5 MG TAB, Dosing Oral Tablet Weight 70.455, [[place] 5/325] kg, ONCE, STAT, Start date: 06/23/14 13:05:00, Stop date: 06/23/14 13:05:00 Acetaminophen 325 1 tab, Route: Inactive 06/23/ MH MG / Hydrocodone PO, Drug Form: 2014 [facility] Bitartrate 5 MG TAB, Dosing Oral Tablet Weight 70.455, [[place] 5/325] kg, ONCE, STAT, Start date: 06/23/14 8:47:00, Stop date: 06/23/14 8:47:00 Sodium Chloride 1,000 mL, 1,000 Inactive 06/23/ MH 0.154 MEQ/ML ml/hr, Infuse 2014 [facility] Injectable Over: 1 hr, Solution Route: IV, ONCE, Priority: STAT, Dosing Weight 70.455 kg, Start date: 06/23/14 8:47:00, Duration: 1 doses or times, Stop date: 06/23/14 8:47:00 Saline Flush 0.9% 10 mL, Route: Inactive IVP, Drug Form: 2014 [facility] INJ, Dosing Weight 70.455, kg, PRN, PRN Line Flush, Start date: 06/23/14 8:47:00, Duration: 30 day, Stop date: 07/23/14 8:46:00Notes: (Same as: BD Posiflush) Lorazepam 2 mg, 1 mL, Inactive Route: IVP, 2014 [facility] Drug form: INJ, ONCE, Dosing Weight 72.727, kg, Priority: STAT, Start date: 06/07/14 15:37:00, Stop date: 06/07/14 15:37:00Notes: (Same as: Ativan) Orphenadrine 60 mg, 2 mL, Inactive [facility] Route: IVP, 2014 [facility] Drug form: INJ, ONCE, Dosing Weight 65.909, kg, Priority: STAT, Start date: 05/09/14 20:29:00, Stop date: 05/09/14 20:29:00 cyclobenzaprine 10 mg, PO, TID, Active Greater 10 mg oral tablet Muscle Spasm, # 2014 [facility] 30 tab, 0 Refill(s) Morphine 4 mg, Route: Inactive [facility] IVP, Drug form: 2014 [facility] INJ, ONCE, Dosing Weight 65.909, kg, Priority: STAT, Start date: 05/09/14 20:13:00, Stop date: 05/09/14 20:13:00 Visipaque 100 mL, 200 Inactive [facility] ml/hr, Route: 2014 [facility] IV, Drug Form: SOLN, ONCALL, Start date: 05/09/14 19:00:00, Duration: 30 day, Stop date: 06/08/14 18:59:00Notes: (Same as: Visipaque). Phenergan 12.5 mg, 0.5 Inactive MH Greater mL, Route: IM, 2014 [facility] Drug form: INJ, ONCE, Dosing Weight 65.909, kg, Priority: STAT, Start date: 05/09/14 18:27:00, Stop date: 05/09/14 18:27:00Notes: Do not give IV push. (Same as: Phenergan) Saline Flush 0.9% 10 mL, Route: Inactive 02/04/ MH Greater IVP, Drug Form: 2014 [facility] INJ, Dosing Weight 65.909, kg, PRN, PRN Line Flush, Start date: 05/09/14 18:21:00, Duration: 30 day, Stop date: 06/08/14 18:20:00Notes: Same as: BD Posiflush Sterile Morphine 2 mg, 1 mL, Inactive [facility] Route: IVP, 2014 [facility] Drug form: INJ, ONCE, Dosing Weight 65.909, kg, Priority: STAT, Start date: 05/09/14 18:21:00, Stop date: 05/09/14 18:21:00Notes: (Same as:MORPhine Sulfate) Lorazepam 1 mg, 0.5 mL, Inactive [facility] Route: IVP, 2014 [facility] Drug form: INJ, ONCE, Dosing Weight 65.909, kg, Priority: STAT, Start date: 05/09/14 18:21:00, Stop date: 05/09/14 18:21:00Notes: (Same as: Ativan) Saline Flush 0.9% 5 mL, Route: Inactive IVP, Drug Form: 2014 [facility] INJ, Dosing Weight 65.909, kg, PRN, PRN Line Flush, Start date: 04/17/14 13:43:00, Duration: 24 hr, Stop date: 04/18/14 13:42:00Notes: (Same as: BD Posiflush) Fentanyl 65 microgram, Inactive 1.3 mL, Route: 2014 [facility] IV, Drug form: INJ, ONCE, Dosing Weight 65.909, kg, Priority: STAT, Start date: 04/17/14 13:42:00, Stop date: 04/17/14 13:42:00Notes: (Same as: Sublimaze) Preservative free. Saline Flush 0.9% 10 mL, Route: Inactive IVP, Drug Form: 2013 [facility] INJ, Dosing Weight 65.909, kg, PRN, PRN Line Flush, Start date: 02/07/14 15:34:00, Duration: 30 day, Stop date: 03/09/14 15:33:00Notes: (Same as: BD Posiflush) lisdexamfetamine 60 mg=1 cap, Active dimesylate 60 MG PO, QAM, 0 2013 [facility] Oral Capsule Refill(s) [Vyvanse] Phenergan 12.5 mg, Route: Inactive IVPB, ONCE, 2013 [facility] Dosing Weight 84.091, kg, Priority: STAT, Start date: 01/05/14 10:24:00, Stop date: 01/05/14 10:24:00 Benadryl 12.5 mg, 0.25 Inactive mL, Route: IVP, 2013 [facility] Drug form: INJ, ONCE, Dosing Weight 84.091, kg, Priority: STAT, Start date: 01/05/14 9:19:00, Stop date: 01/05/14 9:19:00Notes: (Same as: Benadryl) Morphine 2 mg, 1 mL, Inactive Route: IVP, 2013 [facility] Drug form: INJ, ONCE, Dosing Weight 84.091, kg, Priority: STAT, Start date: 01/05/14 9:18:00, Stop date: 01/05/14 9:18:00Notes: (Same as:MORPhine Sulfate) Alprazolam 0.5 MG 0.5 mg, Route: Inactive Oral Tablet PO, Drug form: 2013 [facility] [Xanax] TAB, ONCE, Dosing Weight 68.636, kg, Priority: STAT, Start date: 11/24/13 12:44:00, Stop date: 11/24/13 12:44:00 Allergies, Adverse Reactions, Alerts Substance Category Reaction Severity Reaction Status Date Comments Source type Reported NKDA Assertion Drug Active allergy [facility] aspirin Assertion ANXIETY/I Drug Active OPID NCREASED allergy [place] HEART RATE Food Nuts Assertion Food Active [facility] allergy [place] Food Assertion Food Active [facility] Soybean allergy [place] naproxen Assertion Aspirin, Drug Active OPID ANXIETY allergy [place] Other Food Assertion Propensity Active [facility] Allergy to adverse [place] reactions to substance [place] Assertion HEAD ACHE Propensity Active OPID AND N/V to adverse [place] reactions to substance Zofran Assertion Drug Active OPID allergy [place] Food Assertion Food Active severe MH OPID Nuts<sup>1< allergy all nuts [place] /sup> Other Food Assertion Food Active oleg and MH OPID Allergy<sup allergy balsamic [place] >2</sup> vinegar Immunizations Immunization Date Site Status Last Updated Comments Source Given influenza virus Left completed [facility] vaccine, 1 deltoid [place], inactivated [place],[facility] influenza virus Left completed [facility] vaccine, 1 deltoid [place], inactivated [place],[facility] influenza virus Left completed [facility] vaccine, 1 deltoid [place], inactivated [place],[facility], [facility] [place] [place] influenza virus Left completed [facility] vaccine, 1 deltoid [place], inactivated [place],[facility], [facility] [place], OPID [facility], OPID [place] influenza virus Left completed [facility] vaccine, 1 deltoid [place], inactivated [place],[facility], [facility] [place], [facility] pneumococcal Right arm completed [place] [facility] 23-valent 8 [place],MH vaccine [place],[facility] pneumococcal Right arm completed [place] MH 23-valent 8 [place], vaccine [place],[facility] pneumococcal Right arm completed [place] [facility] 23-valent 8 [place], vaccine [place],[facility], [facility] [place], [facility] [place] pneumococcal Right arm completed [place] [facility] 23-valent 8 [place], [facility] [place], [facility], [facility] [place] pneumococcal Right arm completed [place] MH 23-valent 8 [place], vaccine [facility], [facility] [place], [facility] Results Order Name Results Value Reference Date Interpretation Comments Source Range Hand wo Hand wo 06/04 - OPID contrast contrast MRI /2016 - [place] MRI EXAM: MRI of the right hand without contrast Read by: Arley Saha MD Dictated Date/time: 06/05/16 02:37 INDICATION: M65.841 Other synovitis and tenosynovitis, right hand Electronically Signed by: Arley Saha MD 06/05/16 02 :41 FINAL REPORT COMPARISON: None. TECHNIQUE: Multiplanar, multisequence magnetic resonance imaging of the right hand was performed without the administration of intravenous gadolinium contrast. FINDINGS: No acute bony fracture, joint dislocation, or stress-related marrow edema is seen. Foci of blooming artifact along the dorsum of the index finger metacarpal shaft as well as along the thumb me tacarpal base are seen, slightly obscuring the underlying osseous and soft tissue structures. No significant joint effusion or synovitis is present. The flexor and extensor tendons across the hand are all intact. No tenosynovitis is seen. The ligamentous structures across the hand are all intact. No extracapsular mass or cystic fluid collection is seen. The visualized median nerve is normal in signal intensity and morphology. No muscular atrophy or denervation edema is seen. IMPRESSION: 1. No acute bony abnormality of the right hand. 2. No ligament or tendon tear. 3. No tenosynovitis. SL: SLEE-PC CARDIAC Troponin-I null 0.00 - 04/15 ENZYMES 0.40 [place] CHEM PANEL Glucose Lvl 100 mg/dL 70 - 99 04/15 [place] CHEM PANEL Creatinine 0.67 mg/dL 0.50 - 04/15 Lvl 1. [place] CHEM PANEL Sodium Lvl 141 meq/L 135 - 145 04/15 [place] CHEM PANEL Potassium 4.1 meq/L 3.5 - 5.1 04/15 MH Lvl [place] CHEM PANEL Chloride Lvl 104 meq/L 95 - 109 04/15 [place] CHEM PANEL BUN 5 mg/dL 7 - 22 04/15 [place] CHEM PANEL eGFR 113 04/15 Result Comment: The eGFR is calculated using the CKD-EPI formula. In most young, healthy individuals the eGFR will be >90 mL/ min/1.73m2. The eGFR declines with age. An eGFR of 60-89 may be normal in mL/min/1. some populations, particularly the elderly, for whom the CKD-EPI formula has not been extensively validated. Use of the eGFR is not recommended in the following populations: [place] 3m2 Individuals with unstable creatinine concentrations, including patients and those with serious co-morbid conditions. Patients with extremes in muscle mass or diet. The data above are obtained from the National Kidney Disease Education Program (NKDEP) which additionally recommends that when the eGFR is used in patients with extremes of body mass index for purposes of drug dosing, the eGFR should be multiplied by the estimated BMI. CHEM PANEL AGAP 11.1 meq/L 10.0 - 04/15 20. [facility] CHEM PANEL CO2 30 meq/L 24 - 32 04/15 [facility] CHEM PANEL Calcium Lvl 9.0 mg/dL 8.5 - 10.5 04/15 [facility] ENDOCRINOL hCG Tot 2 mIU/mL 04/15 OG [facility] HEMATOLOGY Basophils 0.4 % 0.0 - 1.0 04/15 [facility] HEMATOLOGY Monocytes # 0.4 K/CMM 0.0 - 0.8 04/15 [facility] HEMATOLOGY Eosinophils 0.1 K/CMM 0.0 - 0.5 04/15 [facility] HEMATOLOGY Basophils # 0.0 K/CMM 0.0 - 0.2 04/15 [facility] HEMATOLOGY Segs-Bands # 7.0 K/CMM 1.5 - 8.1 04/15 [facility] HEMATOLOGY Lymphocytes 2.4 K/CMM 1.0 - 5.5 04/15 [facility] HEMATOLOGY Lymphocytes 23.9 % 20.0 - 04/15 40.0 [facility] HEMATOLOGY Monocytes 4.5 % 2.0 - 12.0 04/15 [facility] HEMATOLOGY Eosinophils 0.8 % 0.0 - 4.0 04/15 [facility] HEMATOLOGY Segs 70.4 % 45.0 - 04/15 75.0 [facility] Platelet 340 K/CMM 133 - 450 04/15 [facility] HEMATOLOGY MPV 9.6 fL 7.4 - 10.4 04/15 [facility] Hgb 12.8 g/dL 12.0 - 04/15 16.0 [facility] Hct 38.7 % 36.0 - 04/15 MH 48.0 [facility] MCV 88.2 fL 80.0 - 04/15 98.0 [facility] MCH 29.1 pg 27.0 - 04/15 31.0 /2016 [facility] HEMATOLOGY RBC 4.39 M/CMM 4.20 - 04/15 5.40 /2017 [facility] HEMATOLOGY MCHC 33.0 g/dL 32.0 - 04/15 36.0 /2016 [facility] HEMATOLOGY RDW 14.0 % 11.5 - 04/15 14.5 /2016 [facility] HEMATOLOGY WBC 10.0 K/CMM 3.7 - 10.4 04/15 [facility] Chest Chest 1view Chest 1view DX 04/15 - 1view DX DX /2016 - [facility] CLINICAL HISTORY:Chest pain Read by: Claudio Valenzuela MD Dictated Date/time: 04/15/16 12:48 Electronically Signed by: Claudio Valenzuela MD 04/15/16 12:49 FINAL REPORT COMPARISON: 11/02/2015 FINDINGS/IMPRESSION: Limited AP portable study. Clothing artifact. Support Lines/Devices: none Lungs: Minimal bibasilar atelectasis. No consolidation or effusion. No pneumothorax is evident. Cardiomediastinum: Cardiomediastinal silhouette is stable. Bone and Soft Tissues: No significant abnormality is evident. Surgical clips in the right upper abdomen suggest previous cholecystectomy. Multiple EKG leads and other wires project over the patient's chest. SL: [id number] URINE AND UA WBC 0-2 /HPF None Seen 11/02 STOOL /HPF [place] URINE AND UA Sq Epi Occasional Few /LPF 11/02 STOOL /LPF /2015 [place] URINE AND UA RBC 0-2 /HPF 0 - 2 11/02 STOOL [place] URINE AND UA Leuk Est Negative Negative 11/02 STOOL [place] (11/02/15 8:34 PM) URINE AND UA Nitrite Negative Negative 11/02 STOOL [place] (11/02/15 8:34 PM) URINE AND UA 0.2 EU/dL 0.1 - 1.0 11/02 STOOL Urobilinogen /2015 [place] URINE AND UA Blood Negative Negative 11/02 STOOL [place] (11/02/15 8:34 PM) URINE AND UA pH 6.0 5.0 - 8.0 11/02 STOOL [place] URINE AND UA Bili Negative Negative 11/02 [place] *NA* (11/02/15 8:34 PM) URINE AND UA Ketones Negative Negative 11/02 STOOL [place] *NA* (11/02/15 8:34 PM) URINE AND UA Spec Grav <=1.005 <=1.030 11/02 STOOL
*NA*< [place] br/>( 8:34 PM) URINE AND UA Glucose Negative Negative 11/02 STOOL [place] (11/02/15 8:34 PM) URINE AND UA Color Yellow Yellow 11/02 STOOL [place] *NA* (11/02/15 8:34 PM) URINE AND UA Protein Negative Negative 11/02 STOOL [place] (11/02/15 8:34 PM) URINE AND UA Turbidity Clear Clear 11/02 STOOL [place] (11/02/15 8:34 PM) CARDIAC Troponin-I null 0.00 - 11/02 ENZYMES 0.40 [place] CARDIAC CK MB 1.2 ng/mL 0.5 - 3.6 11/02 ENZYMES [place] CARDIAC Total CK 82 unit/L 12 - 191 11/02 ENZYMES [place] CARDIAC CK-MB INDEX 1.5 0.0 - 2.5 11/02 ENZYMES [place] CHEM PANEL eGFR 101 11/02 Result Comment: The eGFR is calculated using the CKD-EPI formula. In most young, healthy individuals the eGFR will be >90 mL/ min/1.73m2. The eGFR declines with age. An eGFR of 60-89 may be normal in mL/min/1.7 2016 some populations, particularly the elderly, for whom the CKD-EPI formula has not been extensively validated. Use of the eGFR is not recommended in the following populations: [address] Individuals with unstable creatinine concentrations, including patients and those with serious co-morbid conditions. Patients with extremes in muscle mass or diet. The data above are obtained from the National Kidney Disease Education Program (NKDEP) which additionally recommends that when the eGFR is used in patients with extremes of body mass index for purposes of drug dosing, the eGFR should be multiplied by the estimated BMI. CHEM PANEL Total 6.2 g/dL 6.4 - 8.4 11/02 Protein [place] CHEM PANEL AGAP 13.2 meq/L 10.0 - 11/02 MH 20.0 /2015 [place] CHEM PANEL ASPARTATE 26 unit/L 0 - 37 11/02 MH TRANSAMINASE [place] CHEM PANEL B/C Ratio 8 6 - 25 11/02 [place] CHEM PANEL Globulin 3.1 g/dL 2.0 - 4.0 11/02 [place] CHEM PANEL A/G Ratio 1.0 0.7 - 1.6 11/02 [place] CHEM PANEL Sodium Lvl 139 meq/L 135 - 145 11/02 [place] CHEM PANEL ALANINE 47 unit/L 0 - 65 11/02 MH AMINOTRANS [place] RASE CHEM PANEL Albumin Lvl 3.1 g/dL 3.5 - 5.0 11/02 [place] CHEM PANEL Glucose Lvl 129 mg/dL 70 - 99 11/02 [place] CHEM PANEL Creatinine 0.76 mg/dL 0.50 - 11/02 MH Lvl 1.40 [place] CHEM PANEL Alk Phos 92 unit/L 39 - 136 11/02 [place] CHEM PANEL BUN 6 mg/dL 7 - 22 11/02 [place] CHEM PANEL Chloride Lvl 104 meq/L 95 - 109 11/02 [place] CHEM PANEL CO2 25 meq/L 24 - 32 11/02 [place] CHEM PANEL Calcium Lvl 8.0 mg/dL 8.5 - 10.5 11/02 [place] CHEM PANEL Bili Total 0.2 mg/dL 0.2 - 1.3 11/02 [place] CHEM PANEL Potassium 3.2 meq/L 3.5 - 5.1 11/02 MH Lvl [place] ENDOCRINOL S Preg Negative Negative 11/02 MH OGY [place] *NA* (11/02/15 8:00 PM) HEMATOLOGY RBC X 10x6 3.57 M/CMM 4.20 - 11/02 MH 5.40 [place] HEMATOLOGY Hgb 10.6 g/dL 12.0 - 11/02 MH 16.0 [place] HEMATOLOGY WBC X 10x3 10.5 K/CMM 3.7 - 10.4 11/02 [place] HEMATOLOGY MCV 90.2 fL 80.0 - 11/02 MH 98.0 [place] HEMATOLOGY MCH 29.8 pg 27.0 - 11/02 MH 31.0 [place] HEMATOLOGY Hct 32.2 % 36.0 - 11/02 MH 48.0 [place] HEMATOLOGY MPV 9.4 fL 7.4 - 10.4 11/02 [facility] Platelet 260 K/CMM 133 - 450 11/02 [facility] MCHC 33.0 g/dL 32.0 - 11/02 MH 36.0 [facility] RDW 13.1 % 11.5 - 11/02 MH 14. [facility] D-Dimer 0.27 ug/mL 11/02 FE [facility] Basophils # 0.1 K/CMM 0.0 - 0.2 11/02 [place] HEMATOLOGY Eosinophils 0.2 K/CMM 0.0 - 0.5 11/02 MH [place] HEMATOLOGY Lymphocytes 5.1 K/CMM 1.0 - 5.5 11/02 [facility] Monocytes # 0.9 K/CMM 0.0 - 0.8 11/02 [facility] Segs-Bands # 4.2 K/CMM 1.5 - 8.1 11/02 [facility] Eosinophils 1.8 % 0.0 - 4.0 11/02 [place] HEMATOLOGY Monocytes 8.6 % 2.0 - 12.0 11/02 [facility] Lymphocytes 48.6 % 20.0 - 11/02 MH 40.0 [place] HEMATOLOGY Segs 40.2 % 45.0 - 11/02 MH 75.0 [facility] Basophils 0.8 % 0.0 - 1.0 11/02 [place] Chest Chest 1view Study: Chest 1view DX 11/01 - [place] [address]view DX - [place] Clinical Indication: Chest pain Read by: Arley Saha MD Dictated Date/time: 11/02/15 20:18 Electronically Signed by: Arley Saha MD 11/02/15 20:18 FINAL REPORT Comparison: Chest x-ray from 07/16/2015 FINDINGS: The cardiac silhouette is normal in size. The lungs are clear and without consolidation or congestion. No pleural effusion or pneumothorax is seen. The osseous structures are unremarkable. IMPRESSION: No acute cardiopulmonary disease. SL: SLEE-PC CHEM PANEL Globulin 3.3 g/dL 2.0 - 4.0 07/31 [facility] CHEM PANEL A/G Ratio 1.1 0.7 - 1.6 07/31 [facility] CHEM PANEL B/C Ratio 15 6 - 25 07/31 [facility] CHEM PANEL AGAP 12.1 meq/L 10.0 - 07/31 Greater 20.0 [facility] CHEM PANEL eGFR 95 07/31 Result Comment: The eGFR is calculated using the CKD-EPI formula. In most young, healthy individuals the eGFR will be >90 mL/ min/1.73m2. The eGFR declines with age. An eGFR of 60-89 may be normal in mL/min/1.7 some populations, particularly the elderly, for whom the CKD-EPI formula has not been extensively validated. Use of the eGFR is not recommended in the following populations: [facility] 3m2 Individuals with unstable creatinine concentrations, including patients and those with serious co-morbid conditions. Patients with extremes in muscle mass or diet. The data above are obtained from the National Kidney Disease Education Program (NKDEP) which additionally recommends that when the eGFR is used in patients with extremes of body mass index for purposes of drug dosing, the eGFR should be multiplied by the estimated BMI. CHEM PANEL ALT 36 unit/L 0 - 65 07/31 [facility] CHEM PANEL Albumin Lvl 3.5 g/dL 3.5 - 5.0 07/31 [facility] CHEM PANEL AST 20 unit/L 0 - 37 07/31 [facility] CHEM PANEL Calcium Lvl 8.9 mg/dL 8.5 - 10.5 07/31 [facility] CHEM PANEL Total 6.8 g/dL 6.4 - 8.4 07/31 [facility] CHEM PANEL Alk Phos 97 unit/L 39 - 136 07/31 [facility] CHEM PANEL Bili Total 0.2 mg/dL 0.2 - 1.3 07/31 [facility] CHEM PANEL Potassium 4.1 meq/L 3.5 - 5.1 07/31l [facility] CHEM PANEL CO2 28 meq/L 24 - 32 07/31 [facility] CHEM PANEL Chloride Lvl 103 meq/L 95 - 109 07/31 [facility] CHEM PANEL BUN 12 mg/dL 7 - 22 07/31 CHEM PANEL Sodium Lvl 139 meq/L 135 - 145 07/31 CHEM PANEL Creatinine 0.80 mg/dL 0.50 - 07/31 [facility] Lvl 1.40 /2015 CHEM PANEL Glucose Lvl 120 mg/dL 70 - 99 07/31 HEMATOLOGY MCV 89.2 fL 80.0 - 07/31 98.0 HEMATOLOGY MCH 29.7 pg 27.0 - 07/31 [facility] 31.0 HEMATOLOGY MCHC 33.2 g/dL 32.0 - 07/31 [facility] 36.0 HEMATOLOGY Hgb 12.1 g/dL 12.0 - 07/31 [facility] 16.0 HEMATOLOGY Hct 36.5 % 36.0 - 07/31 [facility] 48.0 HEMATOLOGY MPV 8.2 fL 7.4 - 10.4 07/31 HEMATOLOGY Platelet 319 K/CMM 133 - 450 07/31 [facility] HEMATOLOGY RDW 13.9 % 11.5 - 07/31 [facility] 14.5 HEMATOLOGY RBC 4.09 M/CMM 4.20 - 07/31 [facility] 5.40 HEMATOLOGY WBC 9.1 K/CMM 3.7 - 10.4 07/31 [facility] HEMATOLOGY Segs 46.8 % 45.0 - 07/31 [facility] 75.0 HEMATOLOGY Lymphocytes 41.2 % 20.0 - 07/31 40.0 HEMATOLOGY Monocytes 9.1 % 2.0 - 12.0 07/31 HEMATOLOGY Eosinophils 1.6 % 0.0 - 4.0 07/31 HEMATOLOGY Lymphocytes 3.7 K/CMM 1.0 - 5.5 07/31 # HEMATOLOGY Monocytes # 0.8 K/CMM 0.0 - 0.8 07/31 HEMATOLOGY Eosinophils 0.1 K/CMM 0.0 - 0.5 07/31 HEMATOLOGY Basophils # 0.1 K/CMM 0.0 - 0.2 07/31 HEMATOLOGY Segs-Bands # 4.2 K/CMM 1.5 - 8.1 07/31 [facility] HEMATOLOGY Basophils 1.3 % 0.0 - 1.0 07/31 [facility] CHEM PANEL eGFR 95 07/18 Result Comment: The eGFR is calculated using the CKD-EPI formula. In most young, healthy individuals the eGFR will be >90 mL/ min/1.73m2. The eGFR declines with age. An eGFR of 60-89 may be normal in mL/min/1.7 some populations, particularly the elderly, for whom the CKD-EPI formula has not been extensively validated. Use of the eGFR is not recommended in the following populations: [place] [address] Individuals with unstable creatinine concentrations, including patients and those with serious co-morbid conditions. Patients with extremes in muscle mass or diet. The data above are obtained from the National Kidney Disease Education Program (NKDEP) which additionally recommends that when the eGFR is used in patients with extremes of body mass index for purposes of drug dosing, the eGFR should be multiplied by the estimated BMI. CHEM PANEL Glucose Lvl 150 mg/dL 70 - 99 07/18 [facility] CHEM PANEL Creatinine 0.81 mg/dL 0.50 - 07/18 Lvl 1.40 [place] CHEM PANEL BUN 13 mg/dL 7 - 22 07/18 [place] CHEM PANEL Sodium Lvl 140 meq/L 135 - 145 07/18 [place] CHEM PANEL Chloride Lvl 104 meq/L 95 - 109 07/18 [place] CHEM PANEL CO2 28 meq/L 24 - 32 07/18 [place] CHEM PANEL Potassium 4.0 meq/L 3.5 - 5.1 07/18 Lvl [facility] CHEM PANEL AGAP 12.0 meq/L 10.0 - 07/18 MH 20.0 [place] CHEM PANEL Calcium Lvl 9.0 mg/dL 8.5 - 10.5 07/18 [place] CHEM PANEL B/C Ratio 16 6 - 25 07/18 [place] CHEM PANEL Total 7.1 g/dL 6.4 - 8.4 07/18 Protein [place] CHEM PANEL Globulin 3.8 g/dL 2.0 - 4.0 07/18 [place] CHEM PANEL A/G Ratio 0.9 0.7 - 1.6 07/18 [place] CHEM PANEL Albumin Lvl 3.3 g/dL 3.5 - 5.0 07/18 [facility] CHEM PANEL Alk Phos 88 unit/L 39 - 136 07/18 [facility] CHEM PANEL AST 25 unit/L 0 - 37 07/18 [facility] CHEM PANEL ALT 47 unit/L 0 - 65 07/18 [facility] CHEM PANEL Bili Total 0.2 mg/dL 0.2 - 1.3 07/18 [facility] HEMATOLOGY RDW 14.1 % 11.5 - 07/18 14.5 /2015 [facility] HEMATOLOGY Platelet 314 K/CMM 133 - 450 07/18 [facility] HEMATOLOGY MCHC 32.7 g/dL 32.0 - 07/18 36.0 /2015 [facility] HEMATOLOGY MCH 29.4 pg 27.0 - 07/18 31.0 [facility] HEMATOLOGY MPV 8.8 fL 7.4 - 10.4 07/18 [facility] HEMATOLOGY MCV 89.9 fL 80.0 - 07/18 98.0 [facility] HEMATOLOGY Hgb 11.7 g/dL 12.0 - 07/18 16.0 [facility] HEMATOLOGY Hct 35.7 % 36.0 - 07/18 48.0 /2015 [facility] HEMATOLOGY RBC 3.97 M/CMM 4.20 - 07/18 5.40 /2015 [facility] HEMATOLOGY WBC 19.8 K/CMM 3.7 - 10.4 07/18 [facility] HEMATOLOGY Segs 84.9 % 45.0 - 07/18 75.0 /2015 [facility] HEMATOLOGY Monocytes # 0.9 K/CMM 0.0 - 0.8 07/18 [facility] HEMATOLOGY Lymphocytes 2.1 K/CMM 1.0 - 5.5 07/18 # /2015 [facility] HEMATOLOGY Lymphocytes 10.6 % 20.0 - 07/18 40.0 /2015 [facility] HEMATOLOGY Segs-Bands # 16.8 K/CMM 1.5 - 8.1 07/18 [facility] HEMATOLOGY Monocytes 4.5 % 2.0 - 12.0 07/18 [facility] Chest wo Chest wo Clinical Indication: Coughing patient with allergic reaction and coughing. History of headaches, anxiety, seizures and bipolar disorder. 07/17 - contrast contrast CT /2015 - [facility] CT Comparison: Chest x-ray July 16, 2015 Read by: Jourdan Levy MD Dictated Date/time: 07/18/15 10:54 TECHNIQUE: Sequential trans-axial images were obtained thru the chest and upper abdomen without iodinated contrast. Coronal and sagittal reconstructions were obtained. Electronically Signed by: Jourdan Levy MD 07/18/15 11:17 FINAL REPORT Dose: BVA=840.71 mGy-cm FINDINGS: LUNG PARENCHYMA AND PLEURA: There are no lung nodules. Diffuse bilateral interstitial reticulations are seen with subtle bilateral groundglass opacities. Small bilateral pleural effusions are seen layer ing out posteriorly in the lower lobes measuring less than 4 mm greatest depth. There is no pneumothorax. AIRWAY: The central airway is normal. . MEDIASTINUM: No significant mediastinal lymphadenopathy. HEART: There is no evidence of RV strain. The cardiac chambers are otherwise unremarkable. There is no pericardial effusion. VASCULAR STRUCTURES: The pulmonary arteries and great vessels are unremarkable. The thoracic aorta is within normal limits.. The superior vena cava is unremarkable. OSSEOUS STRUCTURES: There are no significant osseous abnormalities seen. VISUALIZED UPPER ABDOMEN: The visualized upper abdomen is within normal limits. ESOPHAGUS: No gross abnormalities. IMPRESSION: Diffuse interstitial reticulations are seen in both lungs with very small pleural effusions. The differential diagnosis would include pulmonary edema, hypersensitivity lung and nonspecific interstitial pneumonitis. SL: [id number] CHEM PANEL A/G Ratio 0.8 0.7 - 1.6 07/17 [facility] CHEM PANEL AGAP 13.7 meq/L 10.0 - 07/17 MH 20.0 [facility] CHEM PANEL B/C Ratio 11 6 - 25 07/17 [facility] CHEM PANEL Globulin 4.3 g/dL 2.0 - 4.0 07/17 [facility] CHEM PANEL eGFR 101 07/17 Result Comment: The eGFR is calculated using the CKD-EPI formula. In most young, healthy individuals the eGFR will be >90 mL/ min/1.73m2. The eGFR declines with age. An eGFR of 60-89 may be normal in [facility] mL/min/1.7 /2016 some populations, particularly the elderly, for whom the CKD-EPI formula has not been extensively validated. Use of the eGFR is not recommended in the following populations: [place] [address] Individuals with unstable creatinine concentrations, including patients and those with serious co-morbid conditions. Patients with extremes in muscle mass or diet. The data above are obtained from the National Kidney Disease Education Program (NKDEP) which additionally recommends that when the eGFR is used in patients with extremes of body mass index for purposes of drug dosing, the eGFR should be multiplied by the estimated BMI. CHEM PANEL AST 22 unit/L 0 - 37 07/17 [facility] CHEM PANEL Alk Phos 95 unit/L 39 - 136 07/17 [facility] CHEM PANEL Bili Total 0.5 mg/dL 0.2 - 1.3 07/17 [facility] CHEM PANEL Albumin Lvl 3.6 g/dL 3.5 - 5.0 07/17 [facility] CHEM PANEL ALT 36 unit/L 0 - 65 07/17 [facility] CHEM PANEL Total 7.9 g/dL 6.4 - 8.4 07/17 [facility] CHEM PANEL Chloride Lvl 103 meq/L 95 - 109 07/17 [facility] CHEM PANEL CO2 26 meq/L 24 - 32 07/17 [facility] CHEM PANEL Calcium Lvl 9.6 mg/dL 8.5 - 10.5 07/17 [facility] CHEM PANEL Sodium Lvl 138 meq/L 135 - 145 07/17 [facility] CHEM PANEL Potassium 4.7 meq/L 3.5 - 5.1 07/17 [facility] CHEM PANEL Creatinine 0.76 mg/dL 0.50 - 07/17 Lvl 1.40 [facility] CHEM PANEL BUN 8 mg/dL 7 - 22 07/17 [facility] CHEM PANEL Glucose Lvl 137 mg/dL 70 - 99 07/17 [facility] HEMATOLOGY MPV 9.2 fL 7.4 - 10.4 07/17 [facility] HEMATOLOGY RDW 14.8 % 11.5 - 07/17 MH 14.5 [facility] HEMATOLOGY Platelet 300 K/CMM 133 - 450 07/17 [facility] HEMATOLOGY MCV 90.4 fL 80.0 - 07/17 98.0 [facility] HEMATOLOGY MCH 29.9 pg 27.0 - 07/17 MH 31.0 [facility] HEMATOLOGY MCHC 33.1 g/dL 32.0 - 07/17 36.0 [facility] HEMATOLOGY RBC 3.93 M/CMM 4.20 - 07/17 MH 5.40 [facility] HEMATOLOGY WBC 16.9 K/CMM 3.7 - 10.4 07/17 [facility] HEMATOLOGY Hct 35.5 % 36.0 - 07/17 MH 48.0 /2016 [facility] HEMATOLOGY Hgb 11.7 g/dL 12.0 - 07/17 MH 16.0 /2015 [facility] HEMATOLOGY Lymphocytes 1.7 K/CMM 1.0 - 5.5 07/17 # /2016 [facility] HEMATOLOGY Monocytes # 0.2 K/CMM 0.0 - 0.8 07/17 [facility] HEMATOLOGY Basophils 0.1 % 0.0 - 1.0 07/17 [facility] HEMATOLOGY Segs-Bands # 15.0 K/CMM 1.5 - 8.1 07/17 [facility] HEMATOLOGY Lymphocytes 9.9 % 20.0 - 07/17 MH 40.0 /2015 [facility] HEMATOLOGY Monocytes 1.4 % 2.0 - 12.0 07/17 [facility] HEMATOLOGY Segs 88.6 % 45.0 - 07/17 75.0 /2015 [facility] Knee Knee series INDICATIONS: PER PATIENT H/O OF PATELLA MOVING 07/16 - series 3 3 views DX /2015 - [facility] views DX COMPARISONS: None Read by: Joss Panda DO Dictated Date/time: 07/18/15 00:42 Electronically Signed by: Joss Panda DO 07/18/15 00:49 FINAL REPORT FINDINGS: LEFT KNEE 3 VIEWS: AP, lateral, and oblique views of the left knee were obtained. Bones: There is no evidence of fracture or dislocations. Bony architecture is normal. No significant degenerative changes. Soft tissues: The soft tissue structures are unremarkable. Joint effusion: No evidence of knee joint effusion is evident. Calcifications: No abnormal soft tissue calcifications noted. Misc: No loose or foreign bodies are demonstrated. IMPRESSION: 1. NO ACUTE FINDINGS. SL: SROSENBLUM-PC ANEMIA Ferritin Lvl 76 ng/mL 5 - 204 07/16 [facility] ANEMIA TIBC 401 ug/dl 228 - 428 07/16 [facility] ANEMIA Iron 18 ug/dl 30 - 160 07/16 [facility] ANEMIA % Satur Fe 4 % 12 - 57 07/16 [facility] ANEMIA UIBC 383 ug/dl 110 - 370 07/16 [facility] CHEM PANEL Bili Direct 0.1 mg/dL 0.0 - 0.3 07/16 [facility] CHEM PANEL eGFR 83 07/16 Result Comment: The eGFR is calculated using the CKD-EPI formula. In most young, healthy individuals the eGFR will be >90 mL/ min/1.73m2. The eGFR declines with age. An eGFR of 60-89 may be normal in [facility] mL/min/1. some populations, particularly the elderly, for whom the CKD-EPI formula has not been extensively validated. Use of the eGFR is not recommended in the following populations: [place] [address] Individuals with unstable creatinine concentrations, including patients and those with serious co-morbid conditions. Patients with extremes in muscle mass or diet. The data above are obtained from the National Kidney Disease Education Program (NKDEP) which additionally recommends that when the eGFR is used in patients with extremes of body mass index for purposes of drug dosing, the eGFR should be multiplied by the estimated BMI. CHEM PANEL AST 20 unit/L 0 - 37 07/16 [facility] CHEM PANEL ALT 38 unit/L 0 - 65 07/16 [facility] CHEM PANEL Alk Phos 106 unit/L 39 - 136 07/16 [facility] CHEM PANEL Globulin 4.0 g/dL 2.0 - 4.0 07/16 [facility] CHEM PANEL A/G Ratio 0.9 0.7 - 1.6 07/16 [facility] CHEM PANEL B/C Ratio 10 6 - 25 07/16 [facility] CHEM PANEL Total 7.5 g/dL 6.4 - 8.4 07/16 [facility] CHEM PANEL Albumin Lvl 3.5 g/dL 3.5 - 5.0 07/16 [facility] CHEM PANEL Calcium Lvl 9.3 mg/dL 8.5 - 10.5 07/16 [facility] CHEM PANEL Chloride Lvl 104 meq/L 95 - 109 07/16 [facility] CHEM PANEL CO2 27 meq/L 24 - 32 07/16 [facility] CHEM PANEL AGAP 11.5 meq/L 10.0 - 07/16 MH 20.0 [facility] CHEM PANEL Sodium Lvl 138 meq/L 135 - 145 07/16 [facility] CHEM PANEL Creatinine 0.90 mg/dL 0.50 - 07/16 MH Lvl 1.40 /2015 [facility] CHEM PANEL Potassium 4.5 meq/L 3.5 - 5.1 07/16 [facility] CHEM PANEL Glucose Lvl 133 mg/dL 70 - 99 04/ /2015 [facility] CHEM PANEL BUN 9 mg/dL 7 - 22 07/16 /2015 [facility] CHEM PANEL Bili Total 0.4 mg/dL 0.2 - 1.3 04 MH /2015 [facility] HEMATOLOGY Segs 84.2 % 45.0 - 04 MH 75.0 /2015 [facility] HEMATOLOGY Monocytes 4.4 % 2.0 - 12.0 / /2015 [facility] HEMATOLOGY Lymphocytes 11.2 % 20.0 - 04 MH 40.0 /2016 [facility] HEMATOLOGY Monocytes # 0.5 K/CMM 0.0 - 0.8 04 /2015 [facility] HEMATOLOGY Lymphocytes 1.4 K/CMM 1.0 - 5.5 07/16 MH # /2016 [facility] HEMATOLOGY Segs-Bands # 10.6 K/CMM 1.5 - 8.1 07/16 /2015 [facility] HEMATOLOGY Basophils 0.2 % 0.0 - 1.0 07/16 /2015 [facility] HEMATOLOGY PTT 27.0 s 22.9 - 07/16 MH 35.8 /2015 [facility] HEMATOLOGY PT 14.0 s 12.0 - 07/16 MH 14.7 /2015 [facility] HEMATOLOGY INR 1.05 0.85 - 07/16 MH 1.17 /2015 [facility] HEMATOLOGY Retic Auto 1.0 % 0.5 - 1.5 07/16 /2015 [facility] HEMATOLOGY MCH 29.6 pg 27.0 - 04 MH 31.0 /2015 [facility] HEMATOLOGY MCV 89.7 fL 80.0 - 07/16 98.0 /2015 [facility] HEMATOLOGY RDW 14.1 % 11.5 - 07/16 MH 14.5 /2015 [facility] HEMATOLOGY MCHC 33.0 g/dL 32.0 - 04 MH 36.0 /2015 [facility] HEMATOLOGY Platelet 284 K/CMM 133 - 450 04 /2015 [facility] HEMATOLOGY MPV 8.5 fL 7.4 - 10.4 07/16 /2015 [facility] HEMATOLOGY WBC 12.6 K/CMM 3.7 - 10.4 04 /2015 [facility] HEMATOLOGY Hgb 11.5 g/dL 12.0 - 07/16 MH 16.0 /2015 [facility] HEMATOLOGY RBC 3.89 M/CMM 4.20 - 07/16 MH 5.40 /2015 [facility] HEMATOLOGY Hct 34.9 % 36.0 - 04 MH 48.0 /2016 [facility] IMMUNOLOGY Prealbumin 25.3 mg/dL 18.0 - 07/16 45.0 /2015 [facility] SPECIAL Hgb A1C 4.7 % <=5.6 % 07/16 CHEMISTRY [facility] URINE AND UA Leuk Est Negative Negative 07/16 STOOL [facility] (07/17/15 12:41 AM) URINE AND UA Nitrite Negative Negative 07/16 STOOL [facility] (07/17/15 12:41 AM) URINE AND UA 0.2 EU/dL 0.1 - 1.0 07/16 [facility] Urobilinogen /2015 [facility] URINE AND UA Bili Negative Negative 07/16 STOOL [facility] *NA* (07/17/15 12:41 AM) URINE AND UA Blood Small Negative 07/16 STOOL [facility] *ABN* (07/17/15 12:41 AM) URINE AND UA Protein Negative Negative 07/16 STOOL [facility] (07/17/15 12:41 AM) URINE AND UA Ketones Negative Negative 07/16 STOOL [facility] *NA* (07/17/15 12:41 AM) URINE AND UA Glucose 100 mg/dL Negative 07/16 [facility] mg/dL [facility] URINE AND UA Color STRAW 07/16 [facility]OOL [facility] URINE AND UA Turbidity Clear Clear 07/16 STOOL [facility] (07/17/15 12:41 AM) URINE AND UA Spec Grav <=1.005 <=1.030 07/16 [facility]
*NA*< [facility] br/>( 12:41 AM) URINE AND UA pH 5.5 5.0 - 8.0 07/16 [facility]OOL [facility] URINE AND UA Bacteria Occasional None Seen 07/16 [facility] /HPF /HPF [facility] URINE AND UA RBC 0-2 /HPF 0 - 2 07/16 [facility] URINE AND UA WBC 0-2 /HPF None Seen 07/16 [facility] /HPF /2015 [facility] URINE AND UA Sq Epi Few /LPF Few /LPF 07/16 STOOL [facility] BACTERIAL MRSA by PCR Negative 07/16 - SEROLOGY [facility] (07/16/15 11:44 PM) URINE AND UA Leuk Est Negative Negative 07/16 STOOL [facility] (07/16/15 8:33 PM) URINE AND UA 0.2 EU/dL 0.1 - 1.0 07/16 [facility] Urobilinogen [facility] URINE AND UA Blood Trace Negative 07/16 STOOL [facility] *ABN* (07/16/15 8:33 PM) URINE AND UA Nitrite Negative Negative 07/16 STOOL [facility] (07/16/15 8:33 PM) URINE AND UA Bili Negative Negative 07/16 STOOL [facility] *NA* (07/16/15 8:33 PM) URINE AND UA Turbidity Clear Clear 07/16 STOOL [facility] (07/16/15 8:33 PM) URINE AND UA Spec Grav 1.010 <=1.030 07/16 STOOL [facility] URINE AND UA pH 6.0 5.0 - 8.0 07/16 STOOL [facility] URINE AND UA Protein Negative Negative 07/16 STOOL [facility] (07/16/15 8:33 PM) URINE AND UA Glucose >=1000 Negative 07/16 STOOL mg/dL mg/dL [facility] URINE AND UA Ketones Trace Negative 07/16 [facility] *ABN* (07/16/15 8:33 PM) URINE AND UA Color Yellow Yellow 07/16 [facility] *NA* (07/16/15 8:33 PM) URINE AND UA Sq Epi Moderate Few /LPF 07/16 [facility]OOL /LPF [facility] URINE AND UA RBC 0-2 /HPF 0 - 2 07/16 [facility] URINE AND UA Bacteria Few /HPF None Seen 07/16 STOOL /HPF [facility] URINE AND UA WBC 0-2 /HPF None Seen 07/16 [facility] /HPF [facility] HEMATOLOGY Basophils 0.2 % 0.0 - 1.0 07/15 [facility] HEMATOLOGY Eosinophils 0.2 % 0.0 - 4.0 07/15 [facility] Chest Chest 1view Clinical Indication: Dyspnea. 07/15 - 1view DX DX - [facility] Comparison: None. Read by: Pranav Camilo DO Dictated Date/time: 07/16/15 19:06 Electronically Signed by: Pranav Camilo DO 07/16/15 19:07 FINAL REPORT FINDINGS: AP 1 view chest radiograph was performed. LUNGS: Small lung volumes with mild accentuation of the pulmonary vascularity. No interstitial or airspace opacities. No pleural effusions or pneumothorax. HEART AND MEDIASTINUM: The heart size is normal. The mediastinal contour is normal. The trachea is midline. OSSEOUS STRUCTURES: Within normal limits. IMPRESSION: 1. Small lung volumes with mild accentuation of the pulmonary vascularity. No confluent infiltrates in the lungs. SL: [id number] Knee 3 Knee 3 views Patient Name: ADRIANNE SANDERS 06/24 - [facility] views DX - [facility] : 1980; Age: 34 years y/o Female MR: [id number] Read by: Shine Ackerman MD Dictated Date/time: 06/25/15 17:15 Electronically Signed by: Shine Ackerman MD 06/25/15 17:15 FINAL REPORT Study: Knee 3 views DX 06/25/2015 3:23 PM CDT Ordering Physician: Cassi Guidry Comparison: 05/24/2015 Clinical Indication: Right knee pain and swelling; Small joint fluid collection. Joint compartment spaces are well- maintained. No acute fracture or dislocation is noted. SL: [id number] BACTERIAL MRSA by PCR Negative 06/06 [facility] (06/07/15 10:42 AM) ELECTROLYT AGAP 13.2 meq/L 10.0 - 06/06 [facility] ES 20.0 [facility] ELECTROLYT B/C Ratio 12 6 - 25 06/06 [facility] ELECTROLYT Globulin 3.7 g/dL 2.0 - 4.0 06/06 [facility] ELECTROLYT A/G Ratio 1.0 0.7 - 1.6 06/06 [facility] ELECTROLYT eGFR 98 06/06 Result Comment: The eGFR is calculated using the CKD-EPI formula. In most young, healthy individuals the eGFR will be >90 mL/ min/1.73m2. The eGFR declines with age. An eGFR of 60-89 may be normal in [facility] mL/min/1. some populations, particularly the elderly, for whom the CKD-EPI formula has not been extensively validated. Use of the eGFR is not recommended in the following populations: [place] 3m[address] Individuals with unstable creatinine concentrations, including patients and those with serious co-morbid conditions. Patients with extremes in muscle mass or diet. The data above are obtained from the National Kidney Disease Education Program (NKDEP) which additionally recommends that when the eGFR is used in patients with extremes of body mass index for purposes of drug dosing, the eGFR should be multiplied by the estimated BMI. ELECTROLYT Glucose Lvl 86 mg/dL 70 - 99 03/03 [facility] ELECTROLYT BUN 9 mg/dL 7 - 22 03/ [facility] ELECT[facility]YT Calcium Lvl 8.8 mg/dL 8.5 - 10.5 06/06 [facility] [place] ELECTROLYT Total 7.5 g/dL 6.4 - 8.4 03/03 [facility] Protein /2015 [facility] ELECTROLYT Bili Total 0.5 mg/dL 0.2 - 1.3 03/03 [facility] /2015 [facility] ELECTROLYT Chloride Lvl 106 meq/L 95 - 109 03/ MH [facility] [place] ELECTROLYT Albumin Lvl 3.8 g/dL 3.5 - 5.0 / MH [facility] ELECTROLYT ALT 38 unit/L 0 - 65 06/06 MH [facility] ELECTROLYT Creatinine 0.78 mg/dL 0.50 - 03/03 [facility] Lvl 1.40 /2015 [facility] ELECTROLYT Sodium Lvl 141 meq/L 135 - 145 03/ MH [facility] ELECTROLYT CO2 26 meq/L 24 - 32 03/ MH [facility] ELECTROLYT Potassium 4.2 meq/L 3.5 - 5.1 03/ MH [facility] Lvl /2015 [facility] ELECTROLYT AST 19 unit/L 0 - 37 03/ MH [facility] ELECTROLYT Alk Phos 91 unit/L 39 - 136 03/03 [facility] /2015 [facility] HEMATOLOGY PT 14.2 s 12.0 - 03/03 [facility] 14.7 /2016 [facility] HEMATOLOGY PTT 30.5 s 22.9 - 03/03 MH [facility] 35.8 /2016 [facility] HEMATOLOGY INR 1.07 0.85 - 03/03 MH [facility] 1.17 /2016 [facility] HEMATOLOGY Eosinophils 0.1 K/CMM 0.0 - 0.5 03/03 MH [facility] # /2015 [facility] HEMATOLOGY Basophils 0.6 % 0.0 - 1.0 03/03 MH [facility] /2015 [facility] HEMATOLOGY Eosinophils 1.8 % 0.0 - 4.0 03/03 MH [facility] /2015 [facility] HEMATOLOGY Lymphocytes 2.9 K/CMM 1.0 - 5.5 06/06 [facility] # /2015 HEMATOLOGY Segs-Bands # 4.6 K/CMM 1.5 - 8.1 06/06 HEMATOLOGY Monocytes # 0.7 K/CMM 0.0 - 0.8 06/06 HEMATOLOGY Lymphocytes 34.7 % 20.0 - 06/06 [facility] 40.0 /2015 HEMATOLOGY Segs 54.7 % 45.0 - 06/06 [facility] 75.0 /2015 HEMATOLOGY Monocytes 8.2 % 2.0 - 12.0 06/06 HEMATOLOGY MPV 8.9 fL 7.4 - 10.4 06/06 HEMATOLOGY RBC 4.19 M/CMM 4.20 - 06/06 [facility] 5.40 /2015 HEMATOLOGY WBC 8.4 K/CMM 3.7 - 10.4 06/06 [facility] HEMATOLOGY Hgb 12.3 g/dL 12.0 - 06/06 [facility] 16.0 HEMATOLOGY MCHC 32.4 g/dL 32.0 - 06/06 [facility] 36.0 /2015 [facility] HEMATOLOGY RDW 13.3 % 11.5 - 06/06 [facility] 14.5 /2015 [facility] HEMATOLOGY MCV 90.7 fL 80.0 - 06/06 [facility] 98.0 /2015 [facility] HEMATOLOGY MCH 29.4 pg 27.0 - 06/06 [facility] 31.0 /2015 HEMATOLOGY Hct 38.0 % 36.0 - 06/06 [facility] 48.0 [facility] HEMATOLOGY Platelet 284 K/CMM 133 - 450 06/06 [facility] URINE AND UA Mucus None Seen None Seen 06/06 [facility] (06/07/15 10:42 AM) URINE AND UA Bacteria Occasional None Seen 06/06 [facility] STOOL /HPF /HPF [facility] URINE AND UA Blood Trace Negative 06/06 *ABN* (06/07/15 10:42 AM) URINE AND UA Bili Negative Negative 06/06 [facility] *NA* (06/07/15 10:42 AM) URINE AND UA Nitrite Negative Negative 06/06 [facility] (06/07/15 10:42 AM) URINE AND UA 0.2 EU/dL 0.1 - 1.0 06/06 [facility] Urobilinogen URINE AND UA Ketones Negative Negative 06/06 [facility] *NA* (06/07/15 10:42 AM) URINE AND UA WBC 0-2 /HPF None Seen 06/06 [facility] /HPF URINE AND UA Sq Epi Rare /LPF Few /LPF 06/06 URINE AND UA RBC 0-2 /HPF 0 - 2 06/06 [facility] URINE AND Micro? Performed 06/06 [facility] (06/07/15 10:42 AM) URINE AND UA Leuk Est Negative Negative 06/06 [facility] STOOL [facility] (06/07/15 10:42 AM) URINE AND UA Protein Negative Negative 06/06 [facility] (06/07/15 10:42 AM) URINE AND UA Glucose Negative Negative 06/06 [facility] (06/07/15 10:42 AM) URINE AND UA pH 6.0 5.0 - 8.0 06/06 URINE AND UA Color Yellow Yellow 06/06 [facility] *NA* (06/07/15 10:42 AM) URINE AND UA Spec Grav 1.010 <=1.030 06/06 [facility] URINE AND UA Turbidity Clear Clear 06/06 [facility] (06/07/15 10:42 AM) Chest 2 Chest 2 Study: CHEST, PA AND LATERAL 06/06 [facility] DX views - [facility] Clinical Indication: Z01.818 Encounter for other preprocedural examination; surgical clearance for left knee arthroscopy 06/08/2015 Comparison: Chest 06/23/2014 Read by: Micha Cardona MD Dictated Date/time: 06/07/15 11:53 Electronically Signed by: Micha Cardona MD 06/07/15 11:55 FINAL REPORT FINDINGS: The heart, mediastinum, lungs, pleural spaces and visualized skeleton are not remarkable. IMPRESSION: Normal chest, unchanged. SL: [id number] ELECTROLYT Potassium 4.1 meq/L 3.5 - 5.1 05/25 ES Lvl /2015 [facility] ELECTROLYT CO2 30 meq/L 24 - 32 05/25 [facility] ELECTROLYT Chloride Lvl 106 meq/L 95 - 109 05/25 ES [facility] ELECTROLYT Calcium Lvl 8.7 mg/dL 8.5 - 10.5 05/25 [facility] ELECTROLYT Glucose Lvl 88 mg/dL 70 - 99 05/25 [facility] ELECTROLYT BUN 7 mg/dL 7 - 22 05/25 [facility] ELECTROLYT Sodium Lvl 142 meq/L 135 - 145 05/25 [facility] ELECTROLYT eGFR 102 05/25 Result Comment: The eGFR is calculated using the CKD-EPI formula. In most young, healthy individuals the eGFR will be >90 mL/ min/1.73m2. The eGFR declines with age. An eGFR of 60-89 may be normal in [facility] mL/min/1.7 some populations, particularly the elderly, for whom the CKD-EPI formula has not been extensively validated. Use of the eGFR is not recommended in the following populations: [address] Individuals with unstable creatinine concentrations, including patients and those with serious co-morbid conditions. Patients with extremes in muscle mass or diet. The data above are obtained from the National Kidney Disease Education Program (NKDEP) which additionally recommends that when the eGFR is used in patients with extremes of body mass index for purposes of drug dosing, the eGFR should be multiplied by the estimated BMI. ELECTROLYT Creatinine 0.76 mg/dL 0.50 - 05/25 ES Lvl 1.40 [facility] ELECTROLYT AGAP 10.1 meq/L 10.0 - 05/25 ES 20.0 [facility] ENDOCRINOL S Preg Negative Negative 05/25 [facility] *NA* [facility] (05/24/15 8:25 PM) HEMATOLOGY Basophils 0.3 % 0.0 - 1.0 05/25 [facility] HEMATOLOGY Eosinophils 1.5 % 0.0 - 4.0 05/25 [facility] HEMATOLOGY Monocytes 8.2 % 2.0 - 12.0 05/25 [facility] HEMATOLOGY Segs-Bands # 5.1 K/CMM 1.5 - 8.1 05/25 [facility] HEMATOLOGY Lymphocytes 39.1 % 20.0 - 05/25 MH 40.0 [facility] HEMATOLOGY Segs 50.9 % 45.0 - 05/25 MH 75.0 /2015 [facility] HEMATOLOGY Monocytes # 0.8 K/CMM 0.0 - 0.8 05/25 /2015 [facility] HEMATOLOGY Eosinophils 0.1 K/CMM 0.0 - 0.5 05/25 MH # /2016 [facility] HEMATOLOGY Lymphocytes 3.9 K/CMM 1.0 - 5.5 05/25 MH # /2016 [facility] MCHC 33.5 g/dL 32.0 - 05/25 MH 36.0 /2015 [facility] MCV 87.1 fL 80.0 - 05/25 MH 98.0 /2015 [facility] HEMATOLOGY RDW 12.4 % 11.5 - 05/25 MH 14.5 /2015 [facility] Platelet 310 K/CMM 133 - 450 05/25 /2015 [facility] MPV 8.4 fL 7.4 - 10.4 05/25 /2015 [facility] Hgb 11.6 g/dL 12.0 - 05/25 16.0 /2015 [facility] RBC 3.97 M/CMM 4.20 - 05/25 5.40 /2015 [facility] WBC 9.9 K/CMM 3.7 - 10.4 05/25 /2015 [facility] MCH 29.1 pg 27.0 - 05/25 31.0 /2015 [facility] Hct 34.6 % 36.0 - 05/25 48.0 [facility] Knee 3 Knee 3 views Clinical history: Pain Post Trauma. 05/24 - views DX [facility] Sex: Female. [facility] : 1980. Read by: Arley Cardoza MD Dictated Date/time: 05/24/15 22:02 Electronically Signed by: Arley Cardoza MD 05/24/15 22:02 FINAL REPORT Technique: 3 views of the right knee. Findings: The knee joint is normal. The patellofemoral joint is normal. There is no suprapatellar bursal articular effusion. There is no fracture or dislocation. No destructive lesion. Impression: 1. No acute skeletal abnormality. Knee wo Knee wo EXAM: MR RIGHT KNEE WITHOUT CONTRAST 05/16 - OPI contrast contrast MRI /2015 [facility] This report was dictated by a Childhood Development Teacher/Fellow. I have personally reviewed the images as well as the Resident's interpretation and agree with the findings. DATE: 05/16/2015 at 1636 hours Read by: Katie Shaefr DO Resident: Katie Shafer DO Dictated Date/time: 05/17/15 08:54 Electronically Signed by: Margarita Cramer MD 05/17/15 14:10 FINAL REPORT INDICATION: Sprain of anterior cruciate ligament, initially encounter. Right knee pain for a month COMPARISON: MRI of right knee on 04/21/2015 TECHNIQUE: Multiplanar, multisequence noncontrast imaging of the knee. FINDINGS: Menisci: Medial meniscus: Intact Lateral meniscus: Intact. Ligaments: The previously seen increased signal within the anterior cruciate ligament has improved since prior MRI. No anterior cruciate ligament tear. The PCL, medial and lateral collateral ligaments and the capsular ligaments are intact. Extensor mechanism: The quadriceps tendon is intact. There is normal signal within the distal patellar tendon. The previously seen increased signal at the distal patellar tendon was likely artifactual. Muscles: No signal abnormality in the muscles. Cartilage: There is superficial fraying along the medial patellar facet. Bone: No fractures identified. Visualized bone marrow signal is within normal limits. Soft tissue: Within normal limits. No abnormality of the neurovascular structures. IMPRESSION: 1. Decreased edema within the ACL, consistent with an improving low-grade ACL sprain. No acute abnormality. 2. Superficial cartilage fraying at the medial patellar facet. Otherwise no chondral defect. Menisci and remaining ligaments intact. Knee 3 Knee 3 views CLINICAL HISTORY : See Clinic Indication , Pain and swelling 05/07 - views DX [facility] EXAM : 3 views of the right knee May 07, 2015 11:38:00 PM Read by : Britany Rayo MD Dictated Date/time: 05/07/15 23:43 Electronically Signed by: Britany Rayo MD 05/07/15 23:44 FINAL REPORT COMPARISON : 3 views of the right knee April 13, 2015 FINDINGS : There is no acute fracture or dislocation. There is no focal soft tissue swelling. There is no joint effusion. The bony alignment is normal. IMPRESSIONS: No acute fracture or dislocation. Knee wo Knee wo EXAM: MRI of the right knee without contrast. 04/21 [facility] OPID contrast contrast MRI /2015 [facility] HISTORY: M25.561 Pain in right knee Read by: Leno Muir MD Dictated Date/time: 04/22/15 14:53 TECHNIQUE: Multiplanar, multisequence MRI of the right knee without contrast. FINDINGS: Intercondylar notch: The ACL is mildly degenerated or sprained but intact. The PCL is intact. Collateral ligaments: The medial and lateral collateral ligaments are intact. Medial compartment: There is mild intrasubstance degeneration in the posterior horn of the medial meniscus. There is no medial meniscal tear. There is no chondral defect or subchondral marrow edema in the medial compartment. Lateral compartment: The lateral meniscus is intact. There is no chondral defect or subchondral marrow edema in the lateral compartment. The posteromedial and posterolateral corner structures are intact. Patellofemoral compartment: There is mild distal patellar tendinosis. The patellar and quadriceps tendons are intact. There is trace fluid in the deep infrapatellar bursa. There is no chondral defect or subchondral marrow edema in the patellofemoral compartment. Other findings: There is a very small joint effusion, which is within physiologic limits. No osteochondral body is seen. No muscle tear or strain is seen. IMPRESSION: 1. Mild degeneration or sprain of the ACL. No ligament tear. 2. Mild intrasubstance degeneration in the posterior horn of the medial meniscus. No meniscal tear. 3. No chondral defect or bone marrow edema. 4. Mild distal patellar tendinosis without a tear. Trace fluid also noted in the deep infrapatellar bursa. 5. Very small joint effusion, which is within physiologic limits. Knee 3 Knee 3 views PROCEDURE: Right Knee 3 views 04/13 - Greater views DX DX /2016 [place] REASON FOR EXAM: See Clinic Indication CLINICAL INDICATION: Pain and swelling Read by: Rajan Doran MD Dictated Date/time: 04/13/15 12:10 Electronically Signed by: Rajan Doran MD 04/13/15 12:11 FINAL REPORT COMPARISON: None. FINDINGS: Mild diffuse soft tissue swelling about the knee. No definite acute fracture or dislocation. No significant suprapatellar joint effusion is present. SL: 12 ELECTROLYT AGAP 5.9 meq/L 10.0 - 01/04 ES 20.0 [facility] ELECTROLYT Glucose Lvl 82 mg/dL 70 - 99 01/04 [facility] ELECTROLYT BUN 6 mg/dL 7 - 22 01/04 [facility] ELECTROLYT CO2 32 meq/L 24 - 32 01/04 [facility] ELECTROLYT eGFR 96 01/04 Result Comment: The eGFR is calculated using the CKD-EPI formula. In most young, healthy individuals the eGFR will be >90 mL/ min/1.73m2. The eGFR declines with age. An eGFR of 60-89 may be normal in [facility] mL/min/1. some populations, particularly the elderly, for whom the CKD-EPI formula has not been extensively validated. Use of the eGFR is not recommended in the following populations: [address] Individuals with unstable creatinine concentrations, including patients and those with serious co-morbid conditions. Patients with extremes in muscle mass or diet. The data above are obtained from the National Kidney Disease Education Program (NKDEP) which additionally recommends that when the eGFR is used in patients with extremes of body mass index for purposes of drug dosing, the eGFR should be multiplied by the estimated BMI. ELECTROLYT Calcium Lvl 8.8 mg/dL 8.5 - 10.5 01/04 [facility] ELECTROLYT Chloride Lvl 106 meq/L 95 - 109 01/04 [facility] ELECTROLYT Creatinine 0.8 mg/dL 0.5 - 1.4 01/04 [facility] ELECTROLYT Potassium 3.9 meq/L 3.5 - 5.1 01/04 [facility] ELECTROLYT Sodium Lvl 140 meq/L 135 - 145 01/04 [facility] HEMATOLOGY Basophils 0.3 % 0.0 - 1.0 01/04 [facility] HEMATOLOGY Eosinophils 1.2 % 0.0 - 4.0 01/04 [facility] HEMATOLOGY Monocytes 8.4 % 2.0 - 12.0 01/04 [facility] HEMATOLOGY Lymphocytes 20.6 % 20.0 - 01/04 40.0 [facility] HEMATOLOGY Eosinophils 0.1 K/CMM 0.0 - 0.5 01/04 # [facility] HEMATOLOGY Monocytes # 0.7 K/CMM 0.0 - 0.8 01/04 [facility] HEMATOLOGY Lymphocytes 1.8 K/CMM 1.0 - 5.5 01/04 MH # /2014 [facility] HEMATOLOGY Segs-Bands # 6.1 K/CMM 1.5 - 8.1 01/04 [facility] HEMATOLOGY Basophils # 0.0 K/CMM 0.0 - 0.2 01/04 /2014 [facility] HEMATOLOGY Segs 69.5 % 45.0 - 01/04 MH 75.0 /2014 [facility] HEMATOLOGY MPV 8.8 fL 7.4 - 10.4 10 [facility] HEMATOLOGY Platelet 296 K/CMM 133 - 450 10 /2014 [facility] HEMATOLOGY RDW 13.3 % 11.5 - 01/04 MH 14.5 [facility] HEMATOLOGY Hct 40.4 % 36.0 - 01/04 MH 48.0 [facility] HEMATOLOGY MCV 90.5 fL 80.0 - 01/04 98.0 /2014 [facility] HEMATOLOGY MCH 29.9 pg 27.0 - 01/04 31.0 /2014 [facility] HEMATOLOGY Hgb 13.4 g/dL 12.0 - 01/04 16.0 /2014 [facility] HEMATOLOGY RBC 4.47 M/CMM 4.20 - 01/04 MH 5.40 /2014 [facility] HEMATOLOGY MCHC 33.0 g/dL 32.0 - 01/04 MH 36.0 /2014 [facility] HEMATOLOGY WBC 8.8 K/CMM 3.7 - 10.4 01/04 [facility] THYROID TSH 0.704 0.360 - 01/04 PANEL uIU/mL 3.740 /2014 [facility] ELECTROLYT AGAP 12.1 meq/L 10.0 - 06/29 ES 20.0 [facility] ELECTROLYT BUN 4 mg/dL 7 - 22 06/29 ES [facility] ELECTROLYT Glucose Lvl 111 mg/dL 70 - 99 06/29 3Interpretive Data: Adult reference range values reflect the clinical guidelines of the [place] [employer]. [facility] ELECTROLYT Sodium Lvl 142 meq/L 135 - 145 06/29 ES [facility] ELECTROLYT Potassium 3.1 meq/L 3.5 - 5.1 06/29 ES Lvl /2014 [facility] ELECTROLYT Chloride Lvl 111 meq/L 95 - 109 06/29 ES [facility] ELECTROLYT CO2 22 meq/L 24 - 32 06/29 ES [facility] ELECTROLYT eGFR 84 06/29 1Result Comment: The eGFR is calculated using the CKD-EPI formula. In most young, healthy individuals the eGFR will be >90 mL/ min/1.73m2. The eGFR declines with age. An eGFR of 60-89 may be normal in mL/min/1.7 some populations, particularly the elderly, for whom the CKD-EPI formula has not been extensively validated. Use of the eGFR is not recommended in the following populations: [address] Individuals with unstable creatinine concentrations, including patients and those with serious co-morbid conditions. Patients with extremes in muscle mass or diet. The data above are obtained from the National Kidney Disease Education Program (NKDEP) which additionally recommends that when the eGFR is used in patients with extremes of body mass index for purposes of drug dosing, the eGFR should be multiplied by the estimated BMI. ELECTROLYT Creatinine 0.9 mg/dL 0.5 - 1.4 06/29 ES Lvl [facility] ELECTROLYT Calcium Lvl 7.9 mg/dL 8.5 - 10.5 06/29 [facility] HEMATOLOGY WBC 7.4 K/CMM 3.7 - 10.4 06/29 [facility] HEMATOLOGY RBC 3.51 M/CMM 4.20 - 06/29 MH 5.40 /2014 [facility] HEMATOLOGY MCHC 32.6 g/dL 32.0 - 06/29 36.0 [facility] HEMATOLOGY RDW 12.6 % 11.5 - 06/29 MH 14.5 [facility] HEMATOLOGY Platelet 267 K/CMM 133 - 450 06/29 [facility] HEMATOLOGY MPV 8.9 fL 7.4 - 10.4 06/29 [facility] HEMATOLOGY Hct 32.0 % 36.0 - 06/29 MH 48.0 [facility] HEMATOLOGY MCV 91.1 fL 80.0 - 06/29 MH 98.0 [facility] HEMATOLOGY Hgb 10.4 g/dL 12.0 - 06/29 MH 16.0 [facility] HEMATOLOGY MCH 29.7 pg 27.0 - 06/29 MH 31.0 [facility] HEMATOLOGY Eosinophils 0.1 K/CMM 0.0 - 0.5 06/29 MH # /2014 [facility] HEMATOLOGY Monocytes # 0.6 K/CMM 0.0 - 0.8 06/29 [facility] HEMATOLOGY Lymphocytes 2.9 K/CMM 1.0 - 5.5 06/29 # /2014 [facility] HEMATOLOGY Basophils # 0.0 K/CMM 0.0 - 0.2 06/29 [facility] HEMATOLOGY Lymphocytes 39.7 % 20.0 - 06/29 MH 40.0 [facility] HEMATOLOGY Monocytes 8.3 % 2.0 - 12.0 06/29 [facility] HEMATOLOGY Segs 50.2 % 45.0 - 06/29 MH 75.0 [facility] HEMATOLOGY Segs-Bands # 3.7 K/CMM 1.5 - 8.1 06/29 [facility] HEMATOLOGY Basophils 0.4 % 0.0 - 1.0 06/29 [facility] HEMATOLOGY Eosinophils 1.4 % 0.0 - 4.0 06/29 [facility] URINE AND UA Trans Epi OCC <=0 06/28 STOOL [facility] URINE AND UA <=1.0 0.1 - 1.0 06/28 STOOL Urobilinogen mg/dL [facility] URINE AND UA Bacteria Many /HPF None Seen 06/28 STOOL /HPF [facility] URINE AND UA Mucus Many /LPF None Seen 06/28 STOOL /LPF [facility] URINE AND UA Bili Negative Negative 06/28 [facility] *NA* [facility] (06/28/14 6:05 PM) URINE AND UA Protein 30 mg/dL Negative 06/28 STOOL mg/dL [facility] URINE AND UA Glucose Negative Negative 06/28 STOOL mg/dL mg/dL [facility] URINE AND UA pH 6.0 5.0 - 8.0 06/28 STOOL [facility] URINE AND UA Ketones Negative Negative 06/28 STOOL mg/dL mg/dL [facility] URINE AND UA Spec Grav 1.016 <=1.030 06/28 [facility] URINE AND UA Color Yellow Yellow 06/28 [facility] *NA* [facility] (06/28/14 6:05 PM) URINE AND UA Turbidity Slight Clear 06/28 [facility] *ABN* [facility] (06/28/14 6:05 PM) URINE AND UA Nitrite Negative Negative 06/28 [facility] (06/28/14 6:05 PM) [facility] URINE AND UA WBC 22 /HPF 0 - 5 06/28 [facility] URINE AND UA Leuk Est Large Negative [facility] (06/28/14 6:05 PM) URINE AND UA RBC 3 /HPF 0 - 2 06/28 [facility] URINE AND UA Blood Negative Negative 06/28 [facility] (06/28/14 6:05 PM) [facility] URINE AND UA Sq Epi Many /LPF Few /LPF 06/28 [facility] HEMATOLOGY Eosinophils 1.2 % 0.0 - 4.0 06/28 [facility] HEMATOLOGY Monocytes 8.3 % 2.0 - 12.0 06/28 [facility] HEMATOLOGY Segs-Bands # 5.6 K/CMM 1.5 - 8.1 06/28 [facility] HEMATOLOGY Lymphocytes 4.0 K/CMM 1.0 - 5.5 06/28 [facility] HEMATOLOGY Monocytes # 0.9 K/CMM 0.0 - 0.8 06/28 [facility] HEMATOLOGY Basophils 0.4 % 0.0 - 1.0 06/28 [facility] HEMATOLOGY Eosinophils 0.1 K/CMM 0.0 - 0.5 06/28 [facility] HEMATOLOGY Segs 52.6 % 45.0 - 06/28 75.0 [facility] HEMATOLOGY Lymphocytes 37.5 % 20.0 - 06/28 40.0 [facility] HEMATOLOGY PTT 32.0 s 22.9 - 06/28 6Interpretive 35.8 Data: Heparin [facility] Range: 57 - 92 Seconds HEMATOLOGY PT 14.1 s 12.0 - 06/28 14.7 [facility] HEMATOLOGY INR 1.08 0.85 - 06/28 5Interpretive Data: RECOMMENDED RANGES FOR PROTIME INR: . 2.0-3.0 for most medical and surgical thromboembolic states. [facility] 2.5-3.5 for artificial heart valves and recurrent embolism. [facility] INR SHOULD BE USED ONLY FOR PATIENTS ON STABLE ANTICOAGULANT THERAPY. HEMATOLOGY MPV 8.2 fL 7.4 - 10.4 06/28 [facility] MCHC 34.4 g/dL 32.0 - 06/28 MH 36.0 [facility] HEMATOLOGY Hct 40.0 % 36.0 - 06/28 MH 48.0 [facility] HEMATOLOGY MCV 90.6 fL 80.0 - 06/28 MH 98.0 [facility] MCH 31.2 pg 27.0 - 06/28 MH 31.0 [facility] HEMATOLOGY Platelet 338 K/CMM 133 - 450 06/28 [facility] HEMATOLOGY RDW 12.9 % 11.5 - 06/28 14.5 /2014 [facility] Hgb 13.8 g/dL 12.0 - 06/28 16.0 [facility] WBC 10.6 K/CMM 3.7 - 10.4 06/28 [facility] HEMATOLOGY RBC 4.41 M/CMM 4.20 - 06/28 MH 5.40 /2014 [facility] Abdomen/Pe Abdomen/Pelv EXAM: CT ABDOMEN AND PELVIS WITH CONTRAST 06/28 [facility] lvis w IV is w IV /2014 - [facility] contrast contrast [facility] CT DATE:- Jun 28, 2014 08:56:28 PM . Read by: Judah Holbrook MD Dictated Date/time: 06/28/14 21:24 Electronically Signed by: Judah Holbrook MD 06/28/14 21:27 FINAL REPORT CLINICAL INDICATION: Acute abdominal pain. ADDITIONAL DATA: None COMPARISON: 06/23/2014 CT abdomen pelvis Dose: DLP 604 mGy-cm TECHNIQUE: Helical acquisition of the abdomen and pelvis was obtained from the lung bases to the symphysis pubis after uneventful administration of 95 cc Omnipaque intravenous contrast in the venous ph ase of contrast enhancement. Axial, sagittal and coronal images were interpreted. FINDINGS: Lung bases: Dependent atelectasis. Liver: Within normal limits. Spleen: Within normal limits. Adrenal glands: Within normal limits. Gallbladder/biliary: Cholecystectomy. No biliary dilatation. Kidneys: Within normal limits. Normal excretion on delayed images. Pancreas: Within normal limits GI tract: Decompressed rectum. Liquid stool fills the colon. Nondilated fluid-filled loops of distal small bowel. Lymph nodes: Within normal limits. Urinary bladder: Within normal limits. Reproductive structures: Hysterectomy. Regional skeleton: Within normal limits IMPRESSION: 1. Interval resolution of colon thickening seen previously. 2. Liquid stool fills the colon in keeping with diarrhea. There is no bowel inflammation currently, and the previously-present fecal impaction has resolved. 3. Otherwise no acute abnormality in the abdomen or pelvis CHEM PANEL AST 25 unit/L 0 - 37 06/28 [facility] CHEM PANEL eGFR 96 06/28 2Result Comment: The eGFR is calculated using the CKD-EPI formula. In most young, healthy individuals the eGFR will be >90 mL/ min/1.73m2. The eGFR declines with age. An eGFR of 60-89 may be normal in mL/min/1.7 some populations, particularly the elderly, for whom the CKD-EPI formula has not been extensively validated. Use of the eGFR is not recommended in the following populations: [address] Individuals with unstable creatinine concentrations, including patients and those with serious co-morbid conditions. Patients with extremes in muscle mass or diet. The data above are obtained from the National Kidney Disease Education Program (NKDEP) which additionally recommends that when the eGFR is used in patients with extremes of body mass index for purposes of drug dosing, the eGFR should be multiplied by the estimated BMI. CHEM PANEL Creatinine 0.8 mg/dL 0.5 - 1.4 06/28l [facility] CHEM PANEL Total 7.6 g/dL 6.4 - 8.4 06/28 Protein [facility] CHEM PANEL Globulin 3.6 g/dL 2.0 - 4.0 06/28 [facility] CHEM PANEL A/G Ratio 1.1 0.7 - 1.6 06/28 [facility] CHEM PANEL Calcium Lvl 8.8 mg/dL 8.5 - 10.5 06/28 [facility] CHEM PANEL Potassium 4.4 meq/L 3.5 - 5.1 06/28 Lvl [facility] CHEM PANEL Chloride Lvl 110 meq/L 95 - 109 06/28 [facility] CHEM PANEL Sodium Lvl 137 meq/L 135 - 145 06/28 [facility] CHEM PANEL ALT 20 unit/L 0 - 65 06/28 [facility] CHEM PANEL B/C Ratio 9 6 - 25 06/28 [facility] CHEM PANEL BUN 7 mg/dL 7 - 22 06/28 [facility] CHEM PANEL AGAP 11.4 meq/L 10.0 - 06/28 MH 20.0 [facility] CHEM PANEL CO2 20 meq/L 24 - 32 06/28 [facility] CHEM PANEL Glucose Lvl 89 mg/dL 70 - 99 06/28 4Interpretive Data: Adult reference range values reflect the clinical guidelines of the [place] [employer]. [facility] CHEM PANEL Albumin Lvl 4.0 g/dL 3.5 - 5.0 06/28 [facility] CHEM PANEL Bili Total 0.3 mg/dL 0.2 - 1.3 06/28 [facility] CHEM PANEL Alk Phos 90 unit/L 39 - 136 06/28 [facility] CHEM PANEL Amylase Lvl 32 unit/L 25 - 115 06/28 [facility] CHEM PANEL Lipase Lvl 70 unit/L 73 - 393 06/28 [facility] ENDOCRINOL S Preg Negative Negative 06/28 OG [facility] *NA* [facility] (06/28/14 3:45 PM) CARDIAC CK MB Index 1.4 0.0 - 2.5 06/23 [facility] CARDIAC Total CK 76 unit/L 12 - 191 06/23 [facility] CARDIAC CK MB 1.1 ng/mL 0.5 - 3.6 06/23 [facility] CARDIAC Troponin-I null 0.00 - 06/23 [facility] 0.40 /2014 [facility] CHEM PANEL Lipase Lvl 78 unit/L 73 - 393 06/23 [facility] CHEM PANEL eGFR 84 06/23 1Result Comment: The eGFR is calculated using the CKD-EPI formula. In most young, healthy individuals the eGFR will be >90 mL/ min/1.73m2. The eGFR declines with age. An eGFR of 60-89 may be normal in mL/min/1.7 some populations, particularly the elderly, for whom the CKD-EPI formula has not been extensively validated. Use of the eGFR is not recommended in the following populations: [facility] 3m2 Individuals with unstable creatinine concentrations, including patients and those with serious co-morbid conditions. Patients with extremes in muscle mass or diet. The data above are obtained from the National Kidney Disease Education Program (NKDEP) which additionally recommends that when the eGFR is used in patients with extremes of body mass index for purposes of drug dosing, the eGFR should be multiplied by the estimated BMI. CHEM PANEL B/C Ratio 10 6 - 25 06/23 [facility] CHEM PANEL AGAP 8.9 meq/L 10.0 - 06/23 MH 20.0 [facility] CHEM PANEL Bili Total 0.2 mg/dL 0.2 - 1.3 06/23 [facility] CHEM PANEL AST 14 unit/L 0 - 37 06/23 [facility] CHEM PANEL ALT 16 unit/L 0 - 65 06/23 [facility] CHEM PANEL Alk Phos 83 unit/L 39 - 136 06/23 [facility] CHEM PANEL Albumin Lvl 3.6 g/dL 3.5 - 5.0 06/23 [facility] CHEM PANEL Calcium Lvl 8.9 mg/dL 8.5 - 10.5 06/23 [facility] CHEM PANEL Creatinine 0.9 mg/dL 0.5 - 1.4 06/23 [facility] CHEM PANEL Chloride Lvl 112 meq/L 95 - 109 06/23 [facility] CHEM PANEL Potassium 3.9 meq/L 3.5 - 5.1 06/23 [facility] CHEM PANEL Sodium Lvl 140 meq/L 135 - 145 06/23 [facility] CHEM PANEL A/G Ratio 1.3 0.7 - 1.6 06/23 [facility] CHEM PANEL Globulin 2.8 g/dL 2.0 - 4.0 06/23 [facility] CHEM PANEL CO2 23 meq/L 24 - 32 06/23 [facility] CHEM PANEL Total 6.4 g/dL 6.4 - 8.4 06/23 [facility] CHEM PANEL BUN 9 mg/dL 7 - 22 06/23 [facility] CHEM PANEL Glucose Lvl 83 mg/dL 70 - 99 06/23 2Interpretive Data: Adult reference range values reflect the clinical guidelines of the [place] [employer]. [facility] HEMATOLOGY Eosinophils 0.1 K/CMM 0.0 - 0.5 06/23 [facility] HEMATOLOGY Monocytes # 0.7 K/CMM 0.0 - 0.8 06/23 [facility] HEMATOLOGY Segs-Bands # 8.1 K/CMM 1.5 - 8.1 06/23 [facility] HEMATOLOGY Lymphocytes 1.8 K/CMM 1.0 - 5.5 06/23 # /2015 [facility] HEMATOLOGY Basophils 0.4 % 0.0 - 1.0 06/23 [facility] HEMATOLOGY Eosinophils 0.9 % 0.0 - 4.0 06/23 [facility] HEMATOLOGY Segs 75.2 % 45.0 - 06/23 75.0 /2014 [facility] HEMATOLOGY Monocytes 6.7 % 2.0 - 12.0 06/23 [facility] HEMATOLOGY Lymphocytes 16.8 % 20.0 - 06/23 40.0 [facility] HEMATOLOGY Hgb 12.4 g/dL 12.0 - 06/23 16.0 [facility] HEMATOLOGY MPV 9.4 fL 7.4 - 10.4 06/23 [facility] HEMATOLOGY RDW 12.7 % 11.5 - 06/23 14.5 [facility] HEMATOLOGY Platelet 275 K/CMM 133 - 450 06/23 [facility] HEMATOLOGY MCH 31.0 pg 27.0 - 06/23 31.0 [facility] HEMATOLOGY MCHC 33.8 g/dL 32.0 - 06/23 36.0 /2014 [facility] HEMATOLOGY MCV 91.7 fL 80.0 - 06/23 98.0 /2014 [facility] HEMATOLOGY WBC 10.7 K/CMM 3.7 - 10.4 06/23 [facility] HEMATOLOGY Hct 36.7 % 36.0 - 06/23 48.0 /2014 [facility] HEMATOLOGY RBC 4.01 M/CMM 4.20 - 06/23 5.40 /2014 [facility] URINE AND UA Sq Epi Few /LPF Few /LPF 06/23 STOOL [facility] URINE AND UA Bacteria Occasional None Seen 06/23 STOOL /HPF /HPF [facility] URINE AND UA WBC 0-2 /HPF None Seen 06/23 STOOL /HPF /2014 [facility] URINE AND UA RBC 0-2 /HPF 0 - 2 06/23 STOOL [facility] URINE AND UA Amorph Occasional None Seen 06/23 STOOL Desire /HPF /HPF [facility] URINE AND UA Leuk Est Negative Negative 06/23 STOOL [facility] (06/23/14 8:54 AM) URINE AND UA pH 7.5 5.0 - 8.0 06/23 STOOL /2014 [facility] URINE AND UA Spec Grav 1.010 <=1.030 06/23 STOOL [facility] URINE AND UA 0.2 EU/dL 0.1 - 1.0 06/23 [facility] Urobilinogen /2014 [facility] URINE AND UA Nitrite Negative Negative 06/23 STOOL [facility] (06/23/14 8:54 AM) URINE AND UA Ketones Negative Negative 06/23 STOOL mg/dL mg/dL [facility] URINE AND UA Blood Negative Negative 06/23 STOOL [facility] (06/23/14 8:54 AM) URINE AND UA Bili Negative Negative 06/23 STOOL [facility] *NA* (06/23/14 8:54 AM) URINE AND UA Color Yellow Yellow 06/23 STOOL [facility] *NA* (06/23/14 8:54 AM) URINE AND UA Turbidity Clear Clear 06/23 STOOL [facility] (06/23/14 8:54 AM) URINE AND UA Glucose Negative Negative 06/23 STOOL mg/dL mg/dL [facility] URINE AND UA Protein Negative Negative 06/23 STOOL mg/dL mg/dL [facility] ED ED Name: ADRIANNE SANDERS 06/23 - Abdomen/Pe Abdomen/Pelv /2014 - [facility] lvis IV is IV contrast contrast only CT only CT : 1980 Read by: Cheli Blanco MD Dictated Date/time: 06/23/14 10:34 SEX: F Electronically Signed by: Cheli Blanco MD 06/23/14 10:42 FINAL REPORT Ordering Physician: Liborio Bahena ED Abdomen/Pelvis IV contrast only CT : Jun 23, 2014 10:25:00 AM. CLINICAL INDICATION: Abdominal pain, acute Comparison Examination: None TECHNIQUE: Sequential trans-axial images of the abdomen and pelvis were obtained with a multi-detector helical CT. Coronal and sagittal reconstructions were obtained. Contrast: 100 mL of Omnipaque. Oral contrast was not used for bowel opacification. Dose: The total exam DLP is 788.70 mGy-cm. FINDINGS: CHEST: There are no pulmonary nodules or masses. There are no infiltrates or effusions. There is no evidence of interstitial lung disease. LIVER: There are no masses or intrahepatic biliary ductal dilation. The portal vein is normal in caliber. GALLBLADDER: There are surgical clips in the gallbladder fossa consistent with prior cholecystectomy. There is no extrahepatic biliary ductal dilation. SPLEEN: The spleen is normal in size and there are no parenchymal abnormalities. PANCREAS: The pancrease is unremarkable. The pancreatic duct is normal in caliber. ADRENAL GLANDS: The right adrenal gland is unremarkable. The left adrenal gland is unremarkable. KIDNEYS: The kidneys demonstrates normal contrast enhancement. There are no masses. There is no evidence of renal or ureteric calculi. There is no evidence of hydronephrosis. BOWEL: The visualized esophagus is unremarkable. The stomach is unremarkable. The small bowel is normal in caliber and there is no evidence of masses or obstruction. there is thickening of wall of t he transverse colon and descending colon which may represent colitis. There is impacted stool within the rectum and distal sigmoid colon. The appendix is unremarkable. PELVIS: The bladder is unremarkable. LYMPH NODES: There is no evidence of mesenteric or inguinal lymphadenopathy. VASCULATURE: The abdominal aorta is normal in caliber. The branches of the abdominal aorta are patent. SOFT TISSUES: There are no hernias or soft tissue masses. BONES: The visualized skeleton is unremarkable. IMPRESSION: 1. Thickening of the wall of the transverse and ascending colon suggestive of colitis. 2. Constipation with impacted stool within the rectum and distal sigmoid colon. SL: 24 Brain wo Brain wo Name: ADRIANNE SANDERS 06/23 [facility] contrast contrast CT /2014 [facility] CT : 1980 Read by: Cheli Blanco MD Dictated Date/time: 06/23/14 10:33 SEX: F Electronically Signed by: Cheli Blanco MD 06/23/14 10:34 FINAL REPORT Ordering Physician: Liborio Bahena Brain wo contrast CT : Jun 23, 2014 10:22:00 AM. CLINICAL INDICATION: Seizures Comparison Examination: None TECHNIQUE: Axial CT images were obtained from the foramen magnum to the vertex without the use of intravenous contrast. Coronal and sagittal reconstructions reconstructions were obtained and viewed on the workstation. Dose: The total exam DLP is 1054.70 mGy-cm. FINDINGS: The brain is structurally normal without focal lesion, edema, midline shift , hydrocephalus, or extra-axial collection. The ventricles and cisterns are normal. The skull, orbits, mastoids and paranasal sinuses are unremarkable. IMPRESSION: Negative noncontrast CT examination of the head without stroke, hemorrhage or mass. SL: 24 Chest Chest 1view Name: ADRIANNE SANDERS 06/23 [facility] 1view DX DX /2014 [facility] : 1980 Read by: Cheli Blanco MD Dictated Date/time: 06/23/14 09:42 SEX: F Electronically Signed by: Cheli Blanco MD 06/23/14 09:42 FINAL REPORT Ordering Physician: Liborio Bahena 1view : Jun 23, 2014 09:28:00 AM. CLINICAL INDICATION: Chest pain Comparison Examination: None FINDINGS: Portable AP chest radiograph was performed. HEART: The cardiomediastinal contours are normal on this AP view. LUNGS: Normal lung volumes are noted. There are no infiltrates or effusions. No masses are seen BONES: There are no clinically significant osseous abnormalities noted. IMPRESSION: No acute cardiopulmonary abnormality. SL: 24 CHEM PANEL Phosphorus 3.4 mg/dL 2.5 - 4.5 06/07 [facility] CHEM PANEL Magnesium 2.0 mg/dL 1.8 - 2.4 06/07 [facility] CHEM PANEL eGFR 74 06/07 1Result Comment: The eGFR is calculated using the CKD-EPI formula. In most young, healthy individuals the eGFR will be >90 mL/ min/1.73m2. The eGFR declines with age. An eGFR of 60-89 may be normal in mL/min/1.7 /2014 some populations, particularly the elderly, for whom the CKD-EPI formula has not been extensively validated. Use of the eGFR is not recommended in the following populations: [facility] 3m2 Individuals with unstable creatinine concentrations, including patients and those with serious co-morbid conditions. Patients with extremes in muscle mass or diet. The data above are obtained from the National Kidney Disease Education Program (NKDEP) which additionally recommends that when the eGFR is used in patients with extremes of body mass index for purposes of drug dosing, the eGFR should be multiplied by the estimated BMI. CHEM PANEL Bili Total 0.3 mg/dL 0.2 - 1.3 06/07 [facility] CHEM PANEL BUN 9 mg/dL 7 - 22 06/07 [facility] CHEM PANEL Glucose Lvl 84 mg/dL 70 - 99 06/07 2Interpretive Data: Adult reference range values reflect the clinical guidelines of the [place] [employer]. [facility] CHEM PANEL Creatinine 1.0 mg/dL 0.5 - 1.4 06/07 [facility] CHEM PANEL Sodium Lvl 142 meq/L 135 - 145 03/ [facility] CHEM PANEL Potassium 3.9 meq/L 3.5 - 5.1 / Lvl [facility] CHEM PANEL Chloride Lvl 108 meq/L 95 - 109 / [facility] CHEM PANEL CO2 27 meq/L 24 - 32 / [facility] CHEM PANEL Calcium Lvl 9.1 mg/dL 8.5 - 10.5 / [facility] CHEM PANEL Total 7.6 g/dL 6.4 - 8.4 / MH [facility] CHEM PANEL ALT 18 unit/L 0 - 65 / [facility] CHEM PANEL Albumin Lvl 4.1 g/dL 3.5 - 5.0 / [facility] CHEM PANEL AST 16 unit/L 0 - 37 / [facility] CHEM PANEL Alk Phos 100 unit/L 39 - 136 03/ [facility] CHEM PANEL Globulin 3.5 g/dL 2.0 - 4.0 / [facility] CHEM PAN[facility] A/G Ratio 1.2 0.7 - 1.6 / [facility] CHEM PANEL AGAP 10.9 meq/L 10.0 - 03/ MH 20.0 /2014 [facility] CHEM PANEL B/C Ratio 9 6 - 25 / [facility] HEMATOLOGY Basophils 0.7 % 0.0 - 1.0 / [facility] HEMATOLOGY Segs-Bands # 4.5 K/CMM 1.5 - 8.1 / /2014 [facility] HEMATOLOGY Lymphocytes 3.3 K/CMM 1.0 - 5.5 / MH /2014 [facility] HEMATOLOGY Eosinophils 1.6 % 0.0 - 4.0 / /2014 [facility] HEMATOLOGY Monocytes # 0.7 K/CMM 0.0 - 0.8 / /2014 [facility] HEMATOLOGY Eosinophils 0.1 K/CMM 0.0 - 0.5 / MH /2014 [facility] HEMATOLOGY Basophils # 0.1 K/CMM 0.0 - 0.2 / [facility] HEMATOLOGY Segs 51.5 % 45.0 - 03/ MH 75.0 /2014 [facility] HEMATOLOGY Lymphocytes 38.1 % 20.0 - 03/04 MH 40.0 /2014 [facility] HEMATOLOGY Monocytes 8.1 % 2.0 - 12.0 06/07 /2014 [facility] HEMATOLOGY Hct 39.8 % 36.0 - 06/07 MH 48.0 /2014 [facility] HEMATOLOGY MCV 93.9 fL 80.0 - 06/07 98.0 /2014 [facility] MCH 31.5 pg 27.0 - 06/07 MH 31.0 /2014 [facility] MCHC 33.6 g/dL 32.0 - 06/07 MH 36.0 /2014 [facility] RDW 12.8 % 11.5 - 06/07 MH 14.5 /2014 [facility] Platelet 276 K/CMM 133 - 450 06/07 [facility] MPV 9.0 fL 7.4 - 10.4 06/07 [facility] WBC 8.8 K/CMM 3.7 - 10.4 06/07 [facility] RBC 4.23 M/CMM 4.20 - 06/07 MH 5.40 /2014 [facility] Hgb 13.4 g/dL 12.0 - 06/07 16.0 [facility] CHEM PANEL eGFR 84 05/10 1Result Comment: The eGFR is calculated using the CKD-EPI formula. In most young, healthy individuals the eGFR will be >90 mL/ min/1.73m2. The eGFR declines with age. An eGFR of 60-89 may be normal in mL/min/1. some populations, particularly the elderly, for whom the CKD-EPI formula has not been extensively validated. Use of the eGFR is not recommended in the following populations: [place] 3m2 Individuals with unstable creatinine concentrations, including patients and those with serious co-morbid conditions. Patients with extremes in muscle mass or diet. The data above are obtained from the National Kidney Disease Education Program (NKDEP) which additionally recommends that when the eGFR is used in patients with extremes of body mass index for purposes of drug dosing, the eGFR should be multiplied by the estimated BMI. CHEM PANEL BUN 8 mg/dL 7 - 22 05/10 [facility] CHEM PANEL Sodium Lvl 142 meq/L 135 - 145 05/10 [facility] CHEM PANEL Creatinine 0.9 mg/dL 0.5 - 1.4 05/10 [facility] CHEM PANEL Chloride Lvl 110 meq/L 95 - 109 05/10 [facility] CHEM PANEL Potassium 3.8 meq/L 3.5 - 5.1 02/ Greater Lvl [facility] CHEM PANEL Alk Phos 100 unit/L 39 - 136 02/ [facility] CHEM PANEL AST 17 unit/L 0 - 37 02/ [facility] CHEM PANEL Bili Total 0.2 mg/dL 0.2 - 1.3 02/ [facility] CHEM PANEL ALT 21 unit/L 0 - 65 02/ [facility] CHEM PANEL Glucose Lvl 78 mg/dL 70 - 99 02/ 2Interpretive Data: Adult reference range values reflect the clinical guidelines of the [place] [employer]. [facility] CHEM PANEL Total 7.6 g/dL 6.4 - 8.4 02/ Protein [facility] CHEM PANEL CO2 29 meq/L 24 - 32 02/ [facility] CHEM PANEL Albumin Lvl 4.1 g/dL 3.5 - 5.0 02/ [facility] CHEM PANEL Calcium Lvl 9.0 mg/dL 8.5 - 10.5 / [facility] CHEM PANEL Globulin 3.5 g/dL 2.0 - 4.0 02/ [facility] CHEM PANEL B/C Ratio 9 6 - 25 02/ [facility] CHEM PANEL A/G Ratio 1.2 0.7 - 1.6 02/ [facility] CHEM PANEL AGAP 6.8 meq/L 10.0 - 02/04 20.0 [facility] HEMATOLOGY Lymphocytes 30.7 % 20.0 - 02/04 Greater 40.0 [facility] HEMATOLOGY Segs 59.6 % 45.0 - 02/04 Greater 75.0 HEMATOLOGY Basophils # 0.0 K/CMM 0.0 - 0.2 02/ [facility] HEMATOLOGY Eosinophils 1.3 % 0.0 - 4.0 02/ [facility] HEMATOLOGY Monocytes 8.0 % 2.0 - 12.0 02/ [facility] HEMATOLOGY Segs-Bands # 5.6 K/CMM 1.5 - 8.1 02/ [facility] HEMATOLOGY Lymphocytes 2.9 K/CMM 1.0 - 5.5 02/04 [facility] HEMATOLOGY Basophils 0.4 % 0.0 - 1.0 / MH [facility] HEMATOLOGY Monocytes # 0.8 K/CMM 0.0 - 0.8 / [facility] HEMATOLOGY Eosinophils 0.1 K/CMM 0.0 - 0.5 / Greater # /2014 [facility] HEMATOLOGY MCH 31.3 pg 27.0 - 05/10 Greater 31.0 HEMATOLOGY MCV 92.6 fL 80.0 - 05/10 Greater 98.0 [facility] HEMATOLOGY MCHC 33.8 g/dL 32.0 - 05/10 MH Greater 36.0 [facility] HEMATOLOGY RDW 13.3 % 11.5 - 05/10 [facility] 14.5 HEMATOLOGY Platelet 300 K/CMM 133 - 450 05/10 [facility] HEMATOLOGY WBC 9.4 K/CMM 3.7 - 10.4 / [facility] HEMATOLOGY RBC 4.12 M/CMM 4.20 - 05/10 Greater 5.40 [facility] HEMATOLOGY Hgb 12.9 g/dL 12.0 - 05/10 Greater 16.0 [facility] HEMATOLOGY Hct 38.1 % 36.0 - 05/10 Greater 48.0 [facility] HEMATOLOGY MPV 9.6 fL 7.4 - 10.4 05/10 [facility] Chest/Abdo Chest/Abdome CT chest, abdomen and pelvis with contrast 05/09 - men/Pelvis n/Pelvis - [facility] w IV IV contrast contrast CT CT CLINICAL INFORMATION: Trauma. Pain. Read by: Rajan Doran MD Dictated Date/time: 05/09/14 19:04 Electronically Signed by: Rajan Doran MD 05/09/14 19:08 FINAL REPORT COMPARISON: CT abdomen pelvis of 04/17/2014. TECHNIQUE: Multiple axial images of the chest, abdomen and pelvis were performed with IV contrast. No p.o. contrast was given. Chest findings: No mediastinal or substernal hematoma is present. Heart is normal without pericardial effusion. No mediastinal or hilar adenopathy. Persistent trace bilateral pleural effusions are pres ent. Mild bibasilar atelectasis. No significant focal consolidation or pneumothorax. Abdomen pelvis findings: Postoperative cholecystectomy. No definite solid organ injury detected. No abdominal ascites or free air. Abundance of stool within the colon. The bladder is nondistended. Diste nded bladder without focal abnormality. Nonvisualization the uterus presumed post hysterectomy. Delayed images demonstrate normal collecting system. IMPRESSION: 1. Persistent trace bilateral pleural effusions are present. Mild bibasilar atelectasis. No significant focal consolidation or pneumothorax. No definite solid organ injury is present. 2. Postoperative cholecystectomy. 3. No abdominal ascites or free air. 4. Constipation. 5. Post hysterectomy. SL: 12 Spine Spine NAME: ADRIANNE SANDERS 05/09 - Greater cervical cervical wo /[address] : 1980 SEX: F contrast CT Ordering Physician: Pancho Burciaga Read by: Agus Chamberlain MD Dictated Date/time: 05/09/14 19:03 Electronically Signed by: Agus Chamberlain MD 05/09/14 19:11 FINAL REPORT Spine cervical wo contrast CT : May 09, 2014 06:54:00 PM. CLINICAL INDICATION: Neck injury. Comparison Examination: None. FINDINGS: Axial images were obtained through the cervical spine with sagittal and coronal reconstructions not performed on an independent console. No cervical spine fracture or subluxation identified. There is anterior fusion of C4 through C6. No focal herniated nucleus pulposus, no neuroforaminal narrowing and no spinal canal stenosis throughout the cervical spine. Slight fibrosis seen in the lung apices bilaterally. SL: 14 Brain wo Brain wo NAME: ADRIANNE SANDERS 05/09 - Greater contrast contrast CT /2014 CT : 1980 SEX: F Ordering Physician: Pancho Burciaga Read by: Agus Chamberlain MD Dictated Date/time: 05/09/14 18:53 Electronically Signed by: Agus Chamberlain MD 05/09/14 18:58 FINAL REPORT Brain wo contrast CT : May 09, 2014 06:53:00 PM. CLINICAL INDICATION: Head injury. Comparison Examination: None. FINDINGS: There is question of a small low-density area in the anterior left tamia that may be artifactual but cannot exclude small infarct which could be acute. MRI brain may be helpful for further evaluation. Th e ventricles and sulci are within normal limits for the patient's age. No evidence for subarachnoid, intraparenchymal or intraventricular hemorrhage. No extra-axial fluid collection, mass effect or shift. Bone windows were obtained and no bony fracture was identified. CONCLUSIONS: 1. Question small low-density area in the anterior left tamia that may be artifactual but cannot exclude small infarct which could be acute. MRI brain may be helpful for further evaluation. 2. Otherwise negative head CT without contrast. SL: 14 URINE AND UA Bacteria None Seen None Seen 04/17 [facility] (04/17/14 2:52 PM) URINE AND UA RBC None Seen 0 - 2 04/17 [facility] (04/17/14 2:52 PM) URINE AND UA WBC None Seen None Seen 04/17 [facility] (04/17/14 2:52 PM) URINE AND UA Sq Epi Occasional Few /LPF 04/17 STOOL /LPF [facility] URINE AND UA Bili Negative Negative 04/17 [facility] *NA* (04/17/14 2:52 PM) URINE AND UA 0.2 EU/dL 0.1 - 1.0 04/17 [facility] Urobilinogen [facility] URINE AND UA Blood Negative Negative 04/17 [facility] (04/17/14 2:52 PM) URINE AND UA Nitrite Negative Negative 04/17 [facility] (04/17/14 2:52 PM) URINE AND UA Leuk Est Negative Negative 04/17 [facility] (04/17/14 2:52 PM) URINE AND UA Glucose Negative Negative 04/17 [facility] mg/dL mg/dL [facility] URINE AND UA Ketones Negative Negative 04/17 [facility] mg/dL mg/dL [facility] URINE AND UA Turbidity Clear Clear 04/17 [facility] (04/17/14 2:52 PM) URINE AND UA Color Yellow Yellow 04/17 [facility] *NA* (04/17/14 2:52 PM) URINE AND UA Spec Grav 1.010 <=1.030 04/17 [facility] URINE AND UA Protein Negative Negative 04/17 [facility] mg/dL mg/dL [facility] URINE AND UA pH 6.0 5.0 - 8.0 04/17 [facility] CHEM PANEL Lipase Lvl 84 unit/L 73 - 393 04/17 [facility] CHEM PANEL eGFR 84 04/17 1Result Comment: The eGFR is calculated using the CKD-EPI formula. In most young, healthy individuals the eGFR will be >90 mL/ min/1.73m2. The eGFR declines with age. An eGFR of 60-89 may be normal in mL/min/1. some populations, particularly the elderly, for whom the CKD-EPI formula has not been extensively validated. Use of the eGFR is not recommended in the following populations: [address] Individuals with unstable creatinine concentrations, including patients and those with serious co-morbid conditions. Patients with extremes in muscle mass or diet. The data above are obtained from the National Kidney Disease Education Program (NKDEP) which additionally recommends that when the eGFR is used in patients with extremes of body mass index for purposes of drug dosing, the eGFR should be multiplied by the estimated BMI. CHEM PANEL Alk Phos 125 unit/L 39 - 136 04/17 [facility] CHEM PANEL ALT 99 unit/L 0 - 65 04/17 [facility] CHEM PANEL AST 78 unit/L 0 - 37 04/17 [facility] CHEM PANEL Potassium 3.8 meq/L 3.5 - 5.1 04/17 [facility] CHEM PANEL Chloride Lvl 109 meq/L 95 - 109 04/17 [facility] CHEM PANEL Creatinine 0.9 mg/dL 0.5 - 1.4 04/17 [facility] CHEM PANEL Sodium Lvl 141 meq/L 135 - 145 04/17 [facility] CHEM PANEL Bili Total 0.2 mg/dL 0.2 - 1.3 04/17 [facility] CHEM PANEL Albumin Lvl 4.0 g/dL 3.5 - 5.0 04/17 [facility] CHEM PANEL Total 7.6 g/dL 6.4 - 8.4 04/17 [facility] CHEM PANEL CO2 26 meq/L 24 - 32 04/17 [facility] CHEM PANEL Calcium Lvl 8.6 mg/dL 8.5 - 10.5 04/17 [facility] CHEM PANEL BUN 5 mg/dL 7 - 22 04/17 [facility] CHEM PANEL Glucose Lvl 95 mg/dL 70 - 99 04/17 2Interpretive Data: Adult reference range values reflect the clinical guidelines of the [place] [employer]. [facility] CHEM PANEL B/C Ratio 6 6 - 25 04/17 [facility] CHEM PANEL A/G Ratio 1.1 0.7 - 1.6 04/17 [facility] CHEM PANEL AGAP 9.8 meq/L 10.0 - 04/17 MH 20.0 /2014 [facility] CHEM PANEL Globulin 3.6 g/dL 2.0 - 4.0 04/17 [facility] ENDOCRINOL S Preg Negative Negative 04/17 OG [facility] *NA* (04/17/14 2:27 PM) HEMATOLOGY Lymphocytes 2.8 K/CMM 1.0 - 5.5 04/17 MH # /2014 [facility] HEMATOLOGY Segs-Bands # 3.6 K/CMM 1.5 - 8.1 04/17 [facility] HEMATOLOGY Monocytes 7.4 % 2.0 - 12.0 04/17 [facility] HEMATOLOGY Eosinophils 1.7 % 0.0 - 4.0 04/17 [facility] HEMATOLOGY Monocytes # 0.5 K/CMM 0.0 - 0.8 04/17 [facility] HEMATOLOGY Basophils 0.9 % 0.0 - 1.0 04/17 [facility] HEMATOLOGY Segs 50.8 % 45.0 - 04/17 MH 75.0 /2014 [facility] HEMATOLOGY Lymphocytes 39.2 % 20.0 - 04/17 MH 40.0 /2014 [facility] HEMATOLOGY Eosinophils 0.1 K/CMM 0.0 - 0.5 04/17 /2014 [facility] HEMATOLOGY Basophils # 0.1 K/CMM 0.0 - 0.2 04/17 [facility] HEMATOLOGY Hct 38.9 % 36.0 - 04/17 MH 48.0 /2014 [facility] HEMATOLOGY MCH 31.6 pg 27.0 - 04/17 MH 31.0 [facility] HEMATOLOGY MCV 95.2 fL 80.0 - 04/17 MH 98.0 /2014 [facility] HEMATOLOGY MCHC 33.1 g/dL 32.0 - 04/17 MH 36.0 /2014 [facility] HEMATOLOGY WBC 7.1 K/CMM 3.7 - 10.4 04/17 [facility] HEMATOLOGY Platelet 265 K/CMM 133 - 450 04/17 [facility] HEMATOLOGY RDW 13.2 % 11.5 - 04/17 MH 14. [facility] HEMATOLOGY MPV 9.2 fL 7.4 - 10.4 04/17 [facility] HEMATOLOGY RBC 4.08 M/CMM 4.20 - 04/17 5.40 /2015 [facility] HEMATOLOGY Hgb 12.9 g/dL 12.0 - 04/17 16.0 /2014 [facility] ED ED Name: ADRIANNE SANDERS 04/17 - Abdomen/Pe Abdomen/Pelv /2014 [facility] lvis IV is IV contrast contrast only CT only CT : 1980 Read by: Marlene Farr MD Dictated Date/time: 04/17/14 15:34 SEX: F Electronically Signed by: Marlene Farr MD 04/17/14 15:38 FINAL REPORT Ordering Physician: Gorge Ventura ED Abdomen/Pelvis IV contrast only CT : Apr 17, 2014 03:23:00 PM. CLINICAL INDICATION: Abdominal pain, acute Comparison Examination: None Clinical History: Acute abdominal pain TECHNIQUE: Sequential trans-axial images of the abdomen and pelvis were obtained with a multi-detector helical CT. Coronal and sagittal reconstructions were obtained. Contrast:100 cc Omnipaque IV. Enteric contrast was not administered. Dose: The total exam DLP is 764 mGy-cm. FINDINGS: CT ABDOMEN WITH CONTRAST: There are minimal pleural effusions. The gallbladder is surgically absent. The liver, spleen, pancreas, adrenals , and kidneys are unremarkable. Bowel is normal caliber without evidence of obstruction. No mass or focal inflammatory process is appreciated. The appendix is well visualized and is unremarkable. There is no abdominal lymphadenopathy, pneumoperitoneum or ascites. The abdominal aorta and inferior vena cava are patent with patent bilateral renal arteries, mesenteric arteries, and mesenteric veins including the portal vein. FINDINGS: CT PELVIS WITH CONTRAST: The bladder is normal. There is no pelvic lymphadenopathy or ascites. The inguinal regions are unremarkable. Changes of hysterectomy are seen. The visualized skeleton is unremarkable IMPRESSION: No acute abnormality in the abdomen or pelvis. Changes of cholecystectomy. Minimal pleural effusions. SL:[id number] Brain wo Brain wo Name: ADRIANNE SANDERS 03/06 - The contrast contrast CT /[address] [place] [address] CT : 1980 Read by: Kurt Mandujano MD Dictated Date/time: 03/06/14 18:38 Ordering Physician: Christ Doran Electronically Signed by: Kurt Mandujano MD 03/06/14 18:39 FINAL REPORT Brain wo contrast CT : Mar 06, 2014 06:36:00 PM. CLINICAL INDICATION: Confusion Comparison Examination: None. TECHNIQUE: CT of the head was performed without administration of intravenous contrast. Coronal and sagittal reconstructions were obtained and provided as separate series. Total HGJ=1958.5 mGy/cm FINDINGS: The ventricles are normal in size and shape. The sulcal pattern is normal and the basal cisterns are patent. There is no CT evidence of acute intracranial hemorhhage, mass, mass effect, or midline shift. There is no skull fracture. The visualized paranasal sinuses and mastoid air cells are well pneumatized. There is no CT evidence of stroke. If there is continued concern, MRI should be performed for further assessment. IMPRESSION: No CT evidence of acute intracranial process. SL: 24 CHEM PANEL A/G Ratio 1.2 0.7 - 1.6 02/07 [facility] CHEM PANEL Globulin 3.1 g/dL 2.0 - 4.0 02/07 [facility] CHEM PANEL B/C Ratio 8 6 - 25 02/07 [facility] CHEM PANEL AGAP 11.0 meq/L 10.0 - 02/07 20.0 [facility] CHEM PANEL eGFR 96 02/07 1Result Comment: The eGFR is calculated using the CKD-EPI formula. In most young, healthy individuals the eGFR will be >90 mL/ min/1.73m2. The eGFR declines with age. An eGFR of 60-89 may be normal in mL/min/1.7 /2013 some populations, particularly the elderly, for whom the CKD-EPI formula has not been extensively validated. Use of the eGFR is not recommended in the following populations: [facility] 3m2 Individuals with unstable creatinine concentrations, including patients and those with serious co-morbid conditions. Patients with extremes in muscle mass or diet. The data above are obtained from the National Kidney Disease Education Program (NKDEP) which additionally recommends that when the eGFR is used in patients with extremes of body mass index for purposes of drug dosing, the eGFR should be multiplied by the estimated BMI. CHEM PANEL Alk Phos 86 unit/L 39 - 136 02/07 [facility] CHEM PANEL AST 40 unit/L 0 - 37 02/07 [facility] CHEM PANEL ALT 19 unit/L 0 - 65 02/07 [facility] CHEM PANEL Bili Total 0.3 mg/dL 0.2 - 1.3 02/07 [facility] CHEM PANEL Albumin Lvl 3.8 g/dL 3.5 - 5.0 02/07 [facility] CHEM PANEL CO2 27 meq/L 24 - 32 02/07 [facility] CHEM PANEL Total 6.9 g/dL 6.4 - 8.4 02/07 [facility] CHEM PANEL Calcium Lvl 8.8 mg/dL 8.5 - 10.5 02/07 [facility] CHEM PANEL Sodium Lvl 140 meq/L 135 - 145 02/07 [facility] CHEM PANEL Creatinine 0.8 mg/dL 0.5 - 1.4 02/07 [facility] CHEM PANEL Chloride Lvl 106 meq/L 95 - 109 02/07 [facility] CHEM PANEL Potassium 4.0 meq/L 3.5 - 5.1 02/07 [facility] CHEM PANEL Glucose Lvl 83 mg/dL 70 - 99 02/07 2Interpretive Data: Adult reference range values reflect the clinical guidelines of the [place] [employer]. [facility] CHEM PANEL BUN 6 mg/dL 7 - 22 02/07 [facility] ENDOCRINOL S Preg Negative Negative 02/07 [facility] *NA* (02/07/14 4:00 PM) HEMATOLOGY MCH 31.5 pg 27.0 - 02/07 31.0 [facility] HEMATOLOGY RDW 12.9 % 11. - 02/07 14. [facility] HEMATOLOGY MCHC 34.2 g/dL 32.0 - 02/07 36.0 [facility] HEMATOLOGY MPV 8.5 fL 7.4 - 10.4 02/07 [facility] HEMATOLOGY Platelet 305 K/CMM 133 - 450 02/07 [facility] HEMATOLOGY MCV 92.1 fL 80.0 - 02/07 98.0 [facility] HEMATOLOGY Hct 35.3 % 36.0 - 02/07 48.0 [facility] HEMATOLOGY WBC 8.5 K/CMM 3.7 - 10.4 02/07 [facility] HEMATOLOGY Hgb 12.1 g/dL 12.0 - 02/07 16.0 [facility] HEMATOLOGY RBC 3.83 M/CMM 4.20 - 02/07 5.40 [facility] HEMATOLOGY Monocytes # 0.6 K/CMM 0.0 - 0.8 02/07 [facility] HEMATOLOGY Basophils # 0.1 K/CMM 0.0 - 0.2 02/07 [facility] HEMATOLOGY Eosinophils 0.1 K/CMM 0.0 - 0.5 02/07 [facility] # /2014 [facility] HEMATOLOGY Lymphocytes 3.5 K/CMM 1.0 - 5.5 02/07 [facility] # /2014 [facility] HEMATOLOGY Eosinophils 1.3 % 0.0 - 4.0 02/07 [facility] HEMATOLOGY Monocytes 6.8 % 2.0 - 12.0 02/07 [facility] HEMATOLOGY Segs-Bands # 4.3 K/CMM 1.5 - 8.1 02/07 [facility] HEMATOLOGY Basophils 0.7 % 0.0 - 1.0 02/07 [facility] HEMATOLOGY Segs 50.5 % 45.0 - 02/07 [facility] 75.0 /2013 [facility] HEMATOLOGY Lymphocytes 40.7 % 20.0 - 02/07 [facility] 40.0 [facility] CHEM PANEL eGFR 113 01/05 1Result Comment: The eGFR is calculated using the CKD-EPI formula. In most young, healthy individuals the eGFR will be > 90 mL/min/1.73m2. The eGFR declines with age. An eGFR of 60-89 may be normal in mL/min/1.7 some populations, particularly the elderly, for whom the CKD-EPI formula has not been extensively validated. Use of the eGFR is not recommended in the following populations: [facility] 3m2 Individuals with unstable creatinine concentrations, including patients and those with serious co-morbid conditions. Patients with extremes in muscle mass or diet. The data above are obtained from the National Kidney Disease Education Program (NKDEP) which additionally recommends that when the eGFR is used in patients with extremes of body mass index for purposes of drug dosing, the eGFR should be multiplied by the estimated BMI. CHEM PANEL Chloride Lvl 107 meq/L 95 - 109 01/05 [facility] CHEM PANEL Calcium Lvl 8.9 mg/dL 8.5 - 10.5 01/05 [facility] CHEM PANEL CO2 23 meq/L 24 - 32 01/05 [facility] CHEM PANEL Creatinine 0.7 mg/dL 0.5 - 1.4 01/05 [facility] CHEM PANEL BUN 12 mg/dL 7 - 22 01/05 [facility] CHEM PANEL Glucose Lvl 103 mg/dL 70 - 99 01/05 2Interpretive Data: Adult reference range values reflect the clinical guidelines of the [place] [employer]. [facility] CHEM PANEL Potassium 4.1 meq/L 3.5 - 5.1 01/05 [facility] Lvl /2013 [facility] CHEM PANEL Sodium Lvl 140 meq/L 135 - 145 01/05 [facility] CHEM PANEL AGAP 14.1 meq/L 10.0 - 01/05 [facility] 20.0 [facility] HEMATOLOGY Hct 35.6 % 36.0 - 01/05 48.0 /2013 [facility] HEMATOLOGY Hgb 12.5 g/dL 12.0 - 01/05 16.0 [facility] HEMATOLOGY MPV 8.8 fL 7.4 - 10.4 01/05 [facility] HEMATOLOGY Platelet 275 K/CMM 133 - 450 01/05 [facility] HEMATOLOGY MCH 32.2 pg 27.0 - 01/05 31.0 [facility] HEMATOLOGY MCV 91.6 fL 80.0 - 01/05 98.0 [facility] HEMATOLOGY RBC 3.88 M/CMM 4.20 - 01/05 5.40 [facility] HEMATOLOGY RDW 13.4 % 11.5 - 01/05 14.5 [facility] HEMATOLOGY MCHC 35.1 g/dL 32.0 - 01/05 36.0 /2013 [facility] HEMATOLOGY WBC 7.8 K/CMM 3.7 - 10.4 01/05 [facility] HEMATOLOGY Segs-Bands # 4.2 K/CMM 1.5 - 8.1 01/05 [facility] HEMATOLOGY Lymphocytes 2.8 K/CMM 1.0 - 5.5 01/05 [facility] # /2013 [facility] HEMATOLOGY Basophils 0.7 % 0.0 - 1.0 01/05 [facility] HEMATOLOGY Eosinophils 0.6 % 0.0 - 4.0 01/05 [facility] HEMATOLOGY Segs 54.4 % 45.0 - 01/05 75.0 [facility] HEMATOLOGY Basophils # 0.1 K/CMM 0.0 - 0.2 01/05 [facility] HEMATOLOGY Monocytes # 0.7 K/CMM 0.0 - 0.8 01/05 [facility] HEMATOLOGY Monocytes 8.5 % 2.0 - 12.0 01/05 [facility] HEMATOLOGY Lymphocytes 35.8 % 20.0 - 01/05 [facility] 40.0 /2014 [facility] URINE CHEM U Preg Negative Negative 11/24 [facility] (11/24/13 1:00 PM) Vital Signs Vital Sign Value Date Comments Source Heart Rate 82 04/15/2016 [facility] Respitory Rate 18 04/15/2016 [facility] Systolic (mm Hg) 144 04/15/2016 [facility] Diastolic (mm Hg) 77 04/15/2016 [facility] Temperature Oral (F) 98.3 F 04/15/2016 [facility] BMI Calculated 25.58 04/15/2016 [facility] Weight 74.091 04/15/2016 [facility] Height 170.18 cm 04/15/2016 [facility] Temperature Oral (F) 98.6 F 04/15/2016 [facility] Respitory Rate 18 04/15/2016 [facility] Heart Rate 84 04/15/2016 [facility] Systolic (mm Hg) 142 04/15/2016 [facility] Diastolic (mm Hg) 88 04/15/2016 [facility] Systolic (mm Hg) 131 11/03/2015 [facility] Diastolic (mm Hg) 67 11/03/2015 [facility] Respitory Rate 17 11/03/2015 [facility] Respitory Rate 17 11/03/2015 [facility] Systolic (mm Hg) 136 11/03/2015 [facility] Diastolic (mm Hg) 69 11/03/2015 [facility] Respitory Rate 15 11/03/2015 [facility] Systolic (mm Hg) 126 11/03/2015 [facility] Diastolic (mm Hg) 64 11/03/2015 [facility] Weight 83.636 11/02/2015 [facility] Temperature Oral (F) 98.6 F 11/02/2015 [facility] Height 162.56 cm 11/02/2015 [facility] BMI Calculated 31.65 11/02/2015 [facility] Heart Rate 109 11/02/2015 [facility] BMI Calculated 27.15 08/28/2015 [facility] Height 170.18 cm 08/28/2015 [facility] Weight 78.636 08/28/2015 [facility] Heart Rate 100 08/28/2015 [facility] Systolic (mm Hg) 152 08/28/2015 [facility] Diastolic (mm Hg) 93 08/28/2015 [facility] Respitory Rate 24 08/28/2015 [facility] Temperature Oral (F) 98.3 F 08/28/2015 [facility] Respitory Rate 13 08/08/2015 [facility] Systolic (mm Hg) 121 08/08/2015 [facility] Diastolic (mm Hg) 71 08/08/2015 [facility] Respitory Rate 20 08/08/2015 [facility] Systolic (mm Hg) 121 08/08/2015 [facility] Diastolic (mm Hg) 66 08/08/2015 [facility] Respitory Rate 9 08/08/2015 [facility] Systolic (mm Hg) 128 08/08/2015 [facility] Diastolic (mm Hg) 74 08/08/2015 [facility] Heart Rate 91 08/08/2015 [facility] BMI Calculated 27.98 08/01/2015 [facility] Weight 78.636 08/01/2015 [facility] Height 167.64 cm 08/01/2015 [facility] Heart Rate 103 08/01/2015 [facility] Respitory Rate 20 07/19/2015 [facility] Heart Rate 85 07/19/2015 [facility] Temperature Oral (F) 98.0 F 07/19/2015 [facility] Systolic (mm Hg) 132 07/19/2015 [facility] Diastolic (mm Hg) 68 07/19/2015 [facility] Respitory Rate 18 07/19/2015 [facility] Temperature Oral (F) 98.1 F 07/19/2015 [facility] Respitory Rate 16 07/19/2015 [facility] Systolic (mm Hg) 140 07/19/2015 [facility] Diastolic (mm Hg) 80 07/19/2015 [facility] Heart Rate 89 07/19/2015 [facility] Systolic (mm Hg) 142 07/18/2015 [facility] Diastolic (mm Hg) 85 07/18/2015 [facility] Temperature Oral (F) 98.2 F 07/18/2015 [facility] Heart Rate 101 07/18/2015 [facility] Height 170.18 cm 07/17/2015 [facility] BMI Calculated 26.79 07/17/2015 [facility] Weight 77.6 07/17/2015 [facility] BMI Calculated 26.69 07/16/2015 [facility] Weight 75 07/16/2015 [facility] Height 167.64 cm 07/16/2015 [facility] Temperature Oral (F) 98.0 F 06/25/2015 [facility] Systolic (mm Hg) 115 06/25/2015 [facility] Diastolic (mm Hg) 85 06/25/2015 [facility] Heart Rate 89 06/25/2015 [facility] Respitory Rate 16 06/25/2015 [facility] BMI Calculated 26.37 06/25/2015 [facility] Weight 76.364 06/25/2015 [facility] Height 170.18 cm 06/25/2015 [facility] Systolic (mm Hg) 121 06/25/2015 [facility] Diastolic (mm Hg) 74 06/25/2015 [facility] Respitory Rate 19 06/25/2015 [facility] Heart Rate 107 06/25/2015 [facility] Systolic (mm Hg) 121 06/08/2015 [facility] Diastolic (mm Hg) 80 06/08/2015 [facility] Respitory Rate 12 06/08/2015 [facility] Respitory Rate 18 06/08/2015 [facility] Systolic (mm Hg) 122 06/08/2015 [facility] Diastolic (mm Hg) 64 06/08/2015 [facility] Systolic (mm Hg) 132 06/08/2015 [facility] Diastolic (mm Hg) 65 06/08/2015 [facility] Respitory Rate 14 06/08/2015 [facility] Heart Rate 97 06/08/2015 [facility] Heart Rate 98 06/07/2015 [facility] Temperature Oral (F) 98.2 F 06/07/2015 [facility] Weight 75 06/07/2015 [facility] BMI Calculated 25.9 06/07/2015 [facility] Height 170.18 cm 06/07/2015 [facility] Weight 74.091 06/04/2015 [facility] Height 170.18 cm 06/04/2015 [facility] BMI Calculated 25.58 06/04/2015 [facility] Systolic (mm Hg) 116 06/04/2015 [facility] Diastolic (mm Hg) 65 06/04/2015 [facility] Respitory Rate 18 06/04/2015 [facility] Heart Rate 87 06/04/2015 [facility] Temperature Oral (F) 97.9 F 06/04/2015 [facility] Temperature Oral (F) 98.2 F 05/25/[address] [facility] Respitory Rate 20 05/25/[address] [facility] Heart Rate 98 05/25/[address] [facility] Systolic (mm Hg) 114 05/25/[address] [facility] Diastolic (mm Hg) 67 05/25/[address] [facility] Weight 74.091 05/25/[address] [facility] Height 170.18 cm 05/25/[address] [facility] BMI Calculated 25.58 05/25/[address] [facility] Systolic (mm Hg) 99 05/25/[address] [facility] Diastolic (mm Hg) 48 05/25/[address] [facility] Respitory Rate 18 05/25/[address] [facility] Heart Rate 94 05/25/[address] [facility] Temperature Oral (F) 98.0 F 05/25/[address] [facility] Temperature Oral (F) 98.5 F 05/08/[address] [facility] Respitory Rate 16 05/08/[address] [facility] Systolic (mm Hg) 125 05/08/[address] [facility] Diastolic (mm Hg) 70 05/08/[address] [facility] Heart Rate 85 05/08/[address] [facility] Respitory Rate 20 05/08/[address] [facility] Systolic (mm Hg) 130 05/08/[address] [facility] Diastolic (mm Hg) 77 05/08/[address] [facility] Heart Rate 99 05/08/[address] [facility] Weight 72.727 05/08/[address] [facility] Temperature Oral (F) 98.9 F 05/08/[address] [facility] Heart Rate 100 05/08/[address] [facility] Respitory Rate 20 05/08/[address] [facility] Systolic (mm Hg) 136 05/08/[address] [facility] Diastolic (mm Hg) 66 05/08/[address] [facility] Heart Rate 88 04/14/2015 [facility] Respitory Rate 18 04/14/2015 [facility] Systolic (mm Hg) 129 04/14/2015 [facility] Diastolic (mm Hg) 79 04/14/2015 [facility] Weight 75.318 04/14/2015 [facility] BMI Calculated 26.01 04/14/2015 [facility] Height 170.18 cm 04/14/2015 [facility] Temperature Oral (F) 98.7 F 04/14/2015 [facility] Heart Rate 90 04/13/2015 [facility] Systolic (mm Hg) 133 04/13/2015 [facility] Diastolic (mm Hg) 83 04/13/2015 [facility] Respitory Rate 20 04/13/2015 [facility] BMI Calculated 25.74 04/13/2015 [facility] Height 170.18 cm 04/13/2015 [facility] Weight 74.545 04/13/2015 [facility] Heart Rate 92 04/13/2015 [facility] Respitory Rate 16 04/13/2015 [facility] Systolic (mm Hg) 123 04/13/2015 [facility] Diastolic (mm Hg) 83 04/13/2015 [facility] Systolic (mm Hg) 116 01/04/[address] [facility] Diastolic (mm Hg) 59 01/04/[address] [facility] Respitory Rate 18 01/04/[address] [facility] Respitory Rate 18 01/04/[address] [facility] Systolic (mm Hg) 131 01/04/[address] [facility] Diastolic (mm Hg) 78 01/04/[address] [facility] Respitory Rate 18 01/04/[address] [facility] Systolic (mm Hg) 140 01/04/[address] [facility] Diastolic (mm Hg) 69 01/04/[address] [facility] BMI Calculated 25.11 01/04/[address] [facility] Weight 72.727 01/04/[address] [facility] Temperature Oral (F) 78.1 F 01/04/[address] [facility] Height 170.18 cm 01/04/[address] [facility] Heart Rate 80 01/04/[address] [facility] Heart Rate 75 11/16/[address] [facility] Systolic (mm Hg) 122 11/16/[address] [facility] Diastolic (mm Hg) 73 11/16/[address] [facility] Respitory Rate 18 11/16/[address] [facility] Respitory Rate 18 11/16/[address] [facility] Heart Rate 85 11/16/[address] [facility] Systolic (mm Hg) 129 11/16/[address] [facility] Diastolic (mm Hg) 74 11/16/[address] [facility] Temperature Oral (F) 98.6 F 11/16/[address] [facility] Heart Rate 95 11/16/[address] [facility] Systolic (mm Hg) 131 11/16/[address] [facility] Diastolic (mm Hg) 70 11/16/[address] [facility] BMI Calculated 24.8 11/16/[address] [facility] Height 170.18 cm 11/16/[address] [facility] Respitory Rate 17 11/16/[address] [facility] Weight 71.818 11/16/[address] [facility] Temperature Oral (F) 98.4 F 06/29/[address] [facility] Respitory Rate 18 06/29/[address] [facility] Systolic (mm Hg) 101 06/29/[address] [facility] Diastolic (mm Hg) 60 06/29/[address] [facility] Temperature Oral (F) 97.8 F 06/29/[address] [facility] Systolic (mm Hg) 99 06/29/[address] [facility] Diastolic (mm Hg) 64 06/29/[address] [facility] Heart Rate 66 06/29/[address] [facility] Respitory Rate 17 06/29/[address] [facility] Temperature Oral (F) 98.1 F 06/29/[address] [facility] Heart Rate 78 06/29/[address] [facility] Respitory Rate 17 06/29/[address] [facility] Systolic (mm Hg) 114 06/29/[address] [facility] Diastolic (mm Hg) 69 06/29/[address] [facility] Heart Rate 92 06/29/[address] [facility] Weight 31.08 06/29/[address] [facility] BMI Calculated 11.06 06/29/[address] [facility] Height 167.64 cm 06/29/[address] [facility] Height 167.64 cm 06/28/[address] [facility] Weight 67.727 06/28/[address] [facility] BMI Calculated 24.1 06/28/[address] [facility] Heart Rate 72 06/23/2014 [facility] Respitory Rate 18 06/23/2014 [facility] Systolic (mm Hg) 136 06/23/2014 [facility] Diastolic (mm Hg) 70 06/23/2014 [facility] Respitory Rate 18 06/23/2014 [facility] Heart Rate 72 06/23/2014 [facility] Systolic (mm Hg) 132 06/23/2014 [facility] Diastolic (mm Hg) 72 06/23/2014 [facility] Heart Rate 72 06/23/2014 [facility] Respitory Rate 18 06/23/2014 [facility] Systolic (mm Hg) 123 06/23/2014 [facility] Diastolic (mm Hg) 61 06/23/2014 [facility] BMI Calculated 25.85 06/23/2014 [facility] Height 165.1 cm 06/23/2014 [facility] Temperature Oral (F) 98.2 F 06/23/2014 [facility] Weight 70.455 06/23/2014 [facility] Heart Rate 89 06/08/2014 [facility] Respitory Rate 18 06/08/2014 [facility] Systolic (mm Hg) 123 06/08/2014 [facility] Diastolic (mm Hg) 84 06/08/2014 [facility] Heart Rate 78 06/08/2014 [facility] Systolic (mm Hg) 104 06/08/2014 [facility] Diastolic (mm Hg) 64 06/08/2014 [facility] Respitory Rate 16 06/08/2014 [facility] Heart Rate 80 06/07/2014 [facility] Respitory Rate 20 06/07/2014 [facility] Systolic (mm Hg) 104 06/07/2014 [facility] Diastolic (mm Hg) 63 06/07/2014 [facility] Height 162.56 cm 06/07/2014 [facility] BMI Calculated 27.52 06/07/2014 [facility] Weight 72.727 06/07/2014 [facility] Respitory Rate 19 06/02/2014 [facility] Systolic (mm Hg) 141 06/02/2014 [facility] Diastolic (mm Hg) 72 06/02/2014 [facility] Heart Rate 81 06/02/2014 [facility] Heart Rate 97 06/02/2014 [facility] Respitory Rate 20 06/02/2014 [facility] Systolic (mm Hg) 141 06/02/2014 [facility] Diastolic (mm Hg) 71 06/02/2014 [facility] Weight 70 06/02/2014 [facility] BMI Calculated 24.91 06/02/2014 [facility] Height 167.64 cm 06/02/2014 [facility] Respitory Rate 18 05/10/2014 [facility] Diastolic (mm Hg) 67 05/10/2014 [facility] Systolic (mm Hg) 128 05/10/2014 [facility] Heart Rate 62 05/10/2014 [facility] Temperature Oral (F) 97.8 F 05/10/2014 [facility] Diastolic (mm Hg) 78 05/10/2014 [facility] Temperature Oral (F) 97.4 F 05/10/2014 [facility] Heart Rate 61 05/10/2014 [facility] Respitory Rate 16 05/10/2014 [facility] Systolic (mm Hg) 123 05/10/2014 [facility] Temperature Oral (F) 98.0 F 05/09/2014 [facility] Respitory Rate 17 05/09/2014 [facility] Heart Rate 75 05/09/2014 [facility] Diastolic (mm Hg) 82 05/09/2014 [facility] Systolic (mm Hg) 129 05/09/2014 [facility] BMI Calculated 22.09 05/09/2014 [facility] Weight 65.909 05/09/2014 [facility] Height 172.72 cm 05/09/2014 [facility] Systolic (mm Hg) 99 04/17/2014 [facility] Rate 82 04/17/2014 [facility] Diastolic (mm Hg) 53 04/17/2014 [facility] Respitory Rate 17 04/17/2014 [facility] Systolic (mm Hg) 91 04/17/2014 [facility] Diastolic (mm Hg) 50 04/17/2014 [facility] Heart Rate 85 04/17/2014 [facility] Respitory Rate 18 04/17/2014 [facility] Systolic (mm Hg) 110 04/17/2014 [facility] Diastolic (mm Hg) 67 04/17/2014 [facility] Heart Rate 72 04/17/2014 [facility] Respitory Rate 20 04/17/2014 [facility] Temperature Oral (F) 98.4 F 04/17/2014 [facility] Weight 65.909 04/17/2014 [facility] Height 162.56 cm 04/17/2014 [facility] BMI Calculated 24.94 04/17/2014 [facility] Weight 63.636 03/06/2014 [place] Height 175.26 cm 03/06/2014 [place] BMI Calculated 20.72 03/06/2014 [place] Diastolic (mm Hg) 89 03/06/2014 [place] Respitory Rate 16 03/06/2014 [place] Heart Rate 86 03/06/2014 [place] Systolic (mm Hg) 115 03/06/2014 [place] Heart Rate 79 02/21/2014 [facility] Respitory Rate 18 02/21/2014 [place] Diastolic (mm Hg) 82 02/21/2014 [place] Systolic (mm Hg) 139 02/21/2014 [facility] Weight 65.909 02/20/2014 [facility] Height 167.64 cm 02/20/2014 [facility] BMI Calculated 23.45 02/20/2014 [facility] Respitory Rate 20 02/20/2014 [facility] Heart Rate 82 02/20/2014 [place] Systolic (mm Hg) 122 02/20/2014 [place] Diastolic (mm Hg) 74 02/20/2014 [facility] Temperature Oral (F) 97.1 F 02/07/2014 [facility] Heart Rate 86 02/07/2014 [facility] Systolic (mm Hg) 107 02/07/2014 [facility] Diastolic (mm Hg) 61 02/07/2014 [facility] Respitory Rate 16 02/07/2014 [facility] BMI Calculated 23.45 02/07/2014 [facility] Weight 65.909 02/07/2014 [facility] Diastolic (mm Hg) 70 02/07/2014 [facility] Systolic (mm Hg) 124 02/07/2014 [facility] Temperature Oral (F) 97.7 F 02/07/2014 [facility] Respitory Rate 16 02/07/2014 [facility] Height 167.64 cm 02/07/2014 [facility] Heart Rate 94 02/07/2014 [facility] Weight 59.091 01/25/2014 [facility] BMI Calculated 22.36 01/25/2014 [facility] Height 162.56 cm 01/25/2014 [facility] Respitory Rate 16 01/25/2014 [facility] Temperature Oral (F) 96.9 F 01/25/2014 [facility] Heart Rate 97 01/25/2014 [facility] Systolic (mm Hg) 117 01/25/2014 [place] Diastolic (mm Hg) 80 01/25/2014 [facility] Diastolic (mm Hg) 64 01/05/2014 [facility] Systolic (mm Hg) 109 01/05/2014 [facility] Heart Rate 60 01/05/2014 [facility] Respitory Rate 18 01/05/2014 [facility] Heart Rate 64 01/05/2014 [facility] Systolic (mm Hg) 116 01/05/2014 [facility] Respitory Rate 18 01/05/2014 [facility] Diastolic (mm Hg) 69 01/05/2014 [facility] Diastolic (mm Hg) 74 01/05/2014 [facility] Respitory Rate 18 01/05/2014 [place] Systolic (mm Hg) 113 01/05/2014 [facility] Heart Rate 62 01/05/2014 [facility] Height 170.18 cm 01/05/2014 [facility] BMI Calculated 29.04 01/05/2014 [facility] Weight 84.091 01/05/2014 [facility] Temperature Oral (F) 98.3 F 01/05/2014 [facility] Respitory Rate 18 11/24/2013 [facility] Heart Rate 74 11/24/2013 [place] Diastolic (mm Hg) 65 11/24/2013 [facility] Systolic (mm Hg) 112 11/24/2013 [facility] Height 170.18 cm 11/24/2013 [facility] BMI Calculated 23.7 11/24/2013 [facility] Weight 68.636 11/24/2013 [facility] Respitory Rate 18 11/24/2013 [facility] Temperature Oral (F) 97.8 F 11/24/2013 [facility] Heart Rate 72 11/24/2013 [facility] Diastolic (mm Hg) 74 11/24/2013 [place] Systolic (mm Hg) 118 11/24/2013 [facility] Encounters Location Location Encounter Encounter Reason Attending ADM DC Status Source Details Type Number For Provider Date Date Visit [facility] [place] [id number] Vitaliy 11/24 11/24 [facility] Emergency 0 Weathers /2013 [facility] [id number] Wing 01/05 01/05 [facility] Emergency 1 Damiánberg /2013 [facility] EC [id number] Christopher 01/25 01/26 [facility] Emergency 2 Ming /2013 [facility] [place] [id number] Christopher 02/07 02/07 [facility] Emergency 3 Ming /2013 [facility] [place] [id number] Pancho 02/20 02/21 [facility] Emergency 4 Mike [facility] [place] [id number] Christ 03/06 03/07 [facility] The Emergency 5 Prasanthcz /2013 [facility] [place] [id number] Gorge 04/17 04/17 [facility] Emergency 6 Rigobertokov [facility] [place] [id number] Milton Uriostegui 05/09 05/10 [facility] Emergency [facility] [place] [id number] Timbo 06/02 06/02 [facility] Emergency 8 Sen Navarro [facility] [place] [id number] Aamir Lamar 06/07 06/08 [facility] Emergency [facility] [place] [id number] Liborio Bahena 06/23 06/23 [facility] [place] Emergency [facility] OBS [id number] Khadijat 06/28 06/29 [facility] Observation 1 Yamila /2014 [facility] [place] [id number] Karlie Valera 11/16 11/16 [facility] [place] Emergency [facility] [place] [id number] Teena 01/04 01/04 [facility] Emergency 3 Olade /2014 [facility] [place] [id number] Salvador Braxton 04/13 04/13 [facility] [place] Emergency [facility] EC [id number] Letitia 04/14 04/15 [facility] [place] Emergency 5 Pritchett /2015 [facility] [id number] Arley 04/21 04/22 [facility] 0 Simonich [facility] [place] [id number] Carrillo 05/08 05/08 [facility] [place] Emergency 6 Pj /2015 [facility]ag [id number] Arley 05/16 05/17 [facility] 1 Simon [facility] [place] [id number] Rauvbeatrice 05/25 05/25 [facility] [place] Emergency 7 Averick /2015 [facility] [place] [id number] Letitia [facility] Emergency 9 [place] [facility] OBS Day [id number] Cesar 06/07 06/07 [place] Surgery 8 Enmanuel II [facility] [place] [facility] [id number] Cesar 06/20 07/20 [facility] Patients 2 Enmanuel [place] [facility] [place] [id number] Pancho 06/24 06/24 [facility] [place] Emergency 0 Pinedo [facility] Inpatient [id number] Lalo 07/15 07/18 [place] 1 Sabino /2015 [facility] OBS Day [id number] Cesar 08/07 08/07 [facility] Surgery 2 Enmanuel II [facility] Outpatient [id number] JT [facility] 08/27 [facility] [place] [facility] [place] [id number] Corbin 08/27 08/28 [facility] Emergency 3 [place] [facility] [place] OP Therapy [id number] Cesar 09/09 10/09 S[facility] Patients 3 [place] [facility] [place] [id number] Otf Payne 11/01 11/02 [facility] Emergency [facility] [id number] Robert 04/15 04/15 [place] 5 [place] [facility] Outpt Diag [id number] Micha 06/05 06/05 [facility] 4 [facility] [place] Procedures Procedure Code Date Perfomer Comments Source Arthroscopy of knee [id number] [facility] [place] 6 Arthroscopy of knee [id number] [facility] 6 Arthroscopy of knee [id number] [facility] 6 Arthroscopy of knee [id number] [facility] 6 [place] Arthroscopy of knee 953844371 [place] 6 Arthroscopy of knee 132594972 [facility] [address] [place] [address] Hysterectomy 970646117 [facility] Back fusion [id number] [facility] Cholecystectomy [id number] [facility] Hand [id number] [facility] Hand [id number] thumb joint [facility] repair<sup>1</sup> surg [facility] Hysterectomy [id number] [facility] Nerve block [id number] [facility] Shoulder [id number] [facility] Thyroidectomy<sup>2</ [id number] partial [facility] 16207095 [facility] Cervical spinal [id number] [facility] [place] fusion Cholecystectomy 73986103 [facility] [place] Hand [id number] [facility] [place] Hand [id number] thumb joint [facility] [place] repair<sup>1</sup> surg Hysterectomy 518330166 [facility] [place] Knee replacement 65515833 [facility] [place] Nerve block 18153095 [facility] [place] Shoulder [id number] [facility] [place] Thyroidectomy<sup>2</ 32300113 partial [facility] [place] sup> Back fusion 091160806 [facility] Cholecystectomy 09780954 [facility] Hand 68615789 [facility] Hand [phone] thumb joint [facility] repair<sup>1</sup> surg Shoulder 46025038 [facility] Thyroidectomy<sup>2</ 30585883 partial [facility] sup> Cervical spinal 48290072 [facility] [place] Cholecystectomy 18777556 [facility] Hand 24240895 [facility] Hand 520569778 thumb joint [facility] repair<sup>1</sup> [facility] [place] Hysterectomy 605374238 [facility] Knee replacement 90344739 [facility] Nerve block 99743722 [facility] Shoulder 89838389 [facility] Thyroidectomy<sup>2</ 47970895 partial [facility] sup> [place] Back fusion 591885728 [facility] Cholecystectomy [id number] [facility] Hand [id number] [facility] Hand [phone] thumb joint [facility] repair<sup>1</sup> surg [facility] Hysterectomy 785248612 [facility] Nerve block 46302904 [facility] Shoulder [id number] [facility] [place] Thyroidectomy<sup>2</ 69673075 partial MH [facility] sup> [place] Back fusion [id number] [facility] Cholecystectomy [id number] OP[facility] Hand [id number] MH [facility] Hand [id number] thumb joint MH [facility] repair<sup>1</sup> surg [facility] Hysterectomy [id number] [facility] Nerve block [id number] OP[facility] Shoulder [id number] OP[facility] Thyroidectomy<sup>2</ 06924640 partial MH [facility] sup> [facility] Back fusion 927652489 [facility] [place] Cervical spinal 55775655 [facility] fusion Knee replacement 78462157 [facility] Cervical spinal 57891470 [facility] fusion Cholecystectomy 50985576 [place] Hand 12394298 [facility] Hand 792727938 thumb joint [facility] [place] repair<sup>1</sup> surg Hysterectomy 353654376 [facility] Nerve block 50791794 [facility] Shoulder 03029573 [facility] Thyroidectomy<sup>2</ 47072730 partial [facility] [place] sup> Cervical spinal 75860241 [facility] fusion [place] Cholecystectomy 49235401 MH [facility] [place] Hand [id number] MH [facility] [place] Hand [phone] thumb joint MH [facility] repair<sup>1</sup> surg [place] Hysterectomy 151723251 [facility] [place] Nerve block 97035944 [facility] [place] Shoulder [id number] [facility] [place] Thyroidectomy<sup>2</ 54961226 partial MH [facility] sup> [place] Cervical spinal 06581429 [place] fusion Cholecystectomy 04809832 [place] Hand 06293145 [place] Hand [phone] thumb joint MH [place] repair<sup>1</sup> surg Hysterectomy 676769272 [place] Nerve block [id number] MH [place] Shoulder 62602565 MH [place] Thyroidectomy<sup>2</ 69539183 partial MH [place] sup>
--- OUTSIDE RECORDS SUMMARY | 2017-11-26 11:31 | XMS REPORT | Summary of Care ---
:1980 Author Encounter WILLI Cardenas(DAKOTAH) [id number] Date(s): 04/17/14 - 04/17/14 [facility] [address] Discharge Diagnosis: Seizure Discharge Diagnosis: Abdominal pain Discharge Disposition: Home Physician Attending: Gorge Ventura MD Reason for Visit SEIZURE Vital Signs Most recent to oldest 1 2 3 [Reference Range]: Height 162.56 cm (04/17/14 1:24 PM) Temperature Oral [96.4-99.1 98.4 DegF DegF] (04/17/14 1:24 PM) Systolic Blood Pressure [90-140 99 mmHg 91 mmHg 110 mmHg mmHg] (04/17/14 4:23 PM) (04/17/14 3:45 PM) (04/17/14 3:05 PM) Diastolic Blood Pressure [60-90 53 mmHg 50 mmHg 67 mmHg mmHg] *LOW* *LOW* (04/17/14 3:05 PM) (04/17/14 4:23 PM) (04/17/14 3:45 PM) Respiratory Rate [14-20 BRMIN] 17 BRMIN 18 BRMIN 20 BRMIN (04/17/14 4:23 PM) (04/17/14 3:45 PM) (04/17/14 3:05 PM) Peripheral Pulse Rate [60-100 82 bpm 85 bpm 72 bpm bpm] (04/17/14 4:23 PM) (04/17/14 3:45 PM) (04/17/14 3:05 PM) Weight 65.909 kg (04/17/14 1:24 PM) Body Mass Index 24.94 m2 (04/17/14 1:24 PM) Problem List Condition Effective Dates Status Health Status Informant Anemia(Confirmed)1 Resolved Anxiety(Confirmed) Active Bipolar(Confirmed) Active Chronic back pain(Confirmed) Active Constipation(Confirmed) Active Depression(Confirmed) Active Fracture(Confirmed)2 Resolved Gallbladder disease(Confirmed) 2009 Active Hypothyroid(Confirmed) Active Hysterectomy(Confirmed) Active Migraine(Confirmed) Active MVP - Mitral valve Resolved prolapse(Confirmed) Nausea and vomiting(Confirmed) < 05/16/10 Resolved Ovarian cyst(Confirmed) 02/11/11 Active Pain, lower right quad.(Confirmed) 02/28/11 Active Panic attack(Confirmed) Active 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) RSD - Reflex sympathetic Resolved dystrophy(Confirmed) Seizures(Confirmed) Active Shoulder injury(Confirmed) Resolved Syncope(Confirmed) Active Vasovagal attack(Confirmed) Active Vasovagal syncope(Confirmed) Active 1only when [id number] fx x 8 Allergies, Adverse Reactions, Alerts Substance Reaction Severity Status aspirin ANXIETY/INCREASED HEART RATE Active Food Nuts Active Food Soybean Active naproxen Aspirin Active ANXIETY Other Food Allergy Active Talwin HEAD ACHE AND N/V Active Zofran Active Medications fentaNYL 65 microgram, 1.3 mL, Route: IV, Drug form: INJ, ONCE, Dosing Weight 65.909, kg , Priority: STAT, Start date: 04/17/14 13:42:00, Stop date: 04/17/14 13:42:00 Notes: (Same as: Sublimaze) Preservative free. Start Date: 04/17/14 Stop Date: 04/17/14 Status: CompletedSaline Flush 0.9% 5 mL, Route: IVP, Drug Form: INJ, Dosing Weight 65.909, kg, PRN, PRN Line Flush , Start date: 04/17/14 13:43:00, Duration: 24 hr, Stop date: 04/18/14 13:42:00 Notes: (Same as: BD Posiflush) Start Date: 04/17/14 Stop Date: 04/17/14 Status: Discontinued Results ELECTROLYTES Most recent to oldest [Reference Range]: 1 Sodium Lvl [135-145 mEq/L] 141 mEq/L (04/17/14 2:27 PM) Potassium Lvl [3.5-5.1 mEq/L] 3.8 mEq/L (04/17/14 2:27 PM) Chloride Lvl [95-109 mEq/L] 109 mEq/L (04/17/14 2:27 PM) CO2 [24-32 mEq/L] 26 mEq/L (04/17/14 2:27 PM) AGAP [10.0-20.0 mEq/L] 9.8 mEq/L *LOW* (04/17/14 2:27 PM) CHEM PANEL Most recent to oldest [Reference Range]: 1 Creatinine Lvl [0.5-1.4 mg/dL] 0.9 mg/dL (04/17/14 2:27 PM) eGFR 84 mL/min/1.73m2 1 *NA* (04/17/14 2:27 PM) BUN [7-22 mg/dL] 5 mg/dL *LOW* (04/17/14 2:27 PM) B/C Ratio [6-25] 6 (04/17/14 2: PM) Glucose Lvl [70-99 mg/dL] 95 mg/dL 2 (04/17/14 2:27 PM) Total Protein [6.4-8.4 g/dL] 7.6 g/dL (04/17/14 2:27 PM) Albumin Lvl [3.5-5.0 g/dL] 4.0 g/dL (04/17/14 2:27 PM) Globulin [2.0-4.0 g/dL] 3.6 g/dL (04/17/14 2:27 PM) A/G Ratio [0.7-1.6] 1.1 (04/17/14 2: PM) Calcium Lvl [8.5-10.5 mg/dL] 8.6 mg/dL (04/17/14 2:27 PM) ALT [0-65 unit/L] 99 unit/L *HI* (04/17/14 2:27 PM) AST [0-37 unit/L] 78 unit/L *HI* (04/17/14 2:27 PM) Alk Phos [39-136 unit/L] 125 unit/L (04/17/14 2:27 PM) Bili Total [0.2-1.3 mg/dL] 0.2 mg/dL (04/17/14 2:27 PM) Lipase Lvl [73-393 unit/L] 84 unit/L (04/17/14 2:27 PM) 1Result Comment: The eGFR is calculated using the CKD-EPI formula. In most young , healthy individualsthe eGFR will be >90 mL/min/1.73m2. The eGFR declines with age. An eGFR of 60-89 may be normal in some populations, particularly the elderly, for whom the CKD-EPI formula has not been extensively validated. Use of the eGFR is not recommended in the following populations: Individuals with unstable creatinine concentrations, including patients and those with serious co-morbid conditions. Patients with extremes in muscle mass or diet. The data above are obtained from the National Kidney Disease Education Program ( NKDEP) which additionally recommends that when the eGFR is used in patients with extremes of body mass index for purposesof drug dosing, the eGFR should be multiplied by the estimated BMI.2Interpretive Data: Adult reference range values reflect the clinical guidelines of the [place] [employer].ENDOCRINOLOGY Most recent to oldest [Reference Range]: 1 S Preg [Negative] Negative *NA* (04/17/14 2:27 PM) URINE AND STOOL Most recent to oldest [Reference Range]: 1 UA Turbidity [Clear] Clear (04/17/14 2:52 PM) UA Color [Yellow] Yellow *NA* (04/17/14 2:52 PM) UA pH [5.0-8.0] 6.0 (04/17/14 2:52 PM) UA Spec Grav [<=1.030] 1.010 (04/17/14 2:52 PM) UA Glucose [Negative mg/dL] Negative mg/dL (04/17/14 2:52 PM) UA Blood [Negative] Negative (04/17/14 2:52 PM) UA Ketones [Negative mg/dL] Negative mg/dL *NA* (04/17/14 2:52 PM) UA Protein [Negative mg/dL] Negative mg/dL (04/17/14 2:52 PM) UA Urobilinogen [0.1-1.0 EU/dL] 0.2 EU/dL (04/17/14 2:52 PM) UA Bili [Negative] Negative *NA* (04/17/14 2:52 PM) UA Leuk Est [Negative] Negative (04/17/14 2:52 PM) UA Nitrite [Negative] Negative (04/17/14 2:52 PM) UA WBC [None Seen] None Seen (04/17/14 2:52 PM) UA RBC [0-2] None Seen (04/17/14 2:52 PM) UA Bacteria [None Seen] None Seen (04/17/14 2:52 PM) UA Sq Epi [Few /LPF] Occasional /LPF (04/17/14 2:52 PM) HEMATOLOGY Most recent to oldest [Reference Range]: 1 WBC [3.7-10.4 K/CMM] 7.1 K/CMM (04/17/14 2:27 PM) RBC [4.20-5.40 M/CMM] 4.08 M/CMM *LOW* (04/17/14 2:27 PM) Hgb [12.0-16.0 g/dL] 12.9 g/dL (04/17/14 2:27 PM) Hct [36.0-48.0 %] 38.9 % (04/17/14 2:27 PM) MCV [80.0-98.0 fL] 95.2 fL (04/17/14 2:27 PM) MCH [27.0-31.0 pg] 31.6 pg *HI* (04/17/14 2:27 PM) MCHC [32.0-36.0 g/dL] 33.1 g/dL (04/17/14 2:27 PM) RDW [11.5-14.5 %] 13.2 % (04/17/14 2:27 PM) Platelet [133-450 K/CMM] 265 K/CMM (04/17/14 2:27 PM) MPV [7.4-10.4 fL] 9.2 fL (04/17/14 2:27 PM) Segs [45.0-75.0 %] 50.8 % (04/17/14 2:27 PM) Lymphocytes [20.0-40.0 %] 39.2 % (04/17/14 2:27 PM) Monocytes [2.0-12.0 %] 7.4 % (04/17/14 2:27 PM) Eosinophils [0.0-4.0 %] 1.7 % (04/17/14 2:27 PM) Basophils [0.0-1.0 %] 0.9 % (04/17/14 2:27 PM) Segs-Bands # [1.5-8.1 K/CMM] 3.6 K/CMM (04/17/14 2:27 PM) Lymphocytes # [1.0-5.5 K/CMM] 2.8 K/CMM (04/17/14 2:27 PM) Monocytes # [0.0-0.8 K/CMM] 0.5 K/CMM (04/17/14 2:27 PM) Eosinophils # [0.0-0.5 K/CMM] 0.1 K/CMM (04/17/14 2:27 PM) Basophils # [0.0-0.2 K/CMM] 0.1 K/CMM (04/17/14 2:27 PM) Medications Administered During Your Visit No data available for this section Immunizations Vaccine Date Refusal Reason influenza virus vaccine, inactivated 05/03/10 pneumococcal 23-valent vaccine 03/11/08 Social History Social History Type Response Substance Abuse Use: None Alcohol Use: Current, Type: Wine, Frequency: 1-2 times per month, Previous treatment: None, Has alcohol use interfered with work or home life? No, Do you ever drink more than intended? No, Has anyone been hurt or at risk by your drinking? No, Ready to change: No, Concerns about alcohol use in household: No Smoking Status Never smoker, Exposure to Tobacco Smoke None, Cigarette Smoking Last 365 Days No, Reg Smoking Cessation Counseling No
--- OUTSIDE RECORDS SUMMARY | 2017-11-26 11:31 | XMS REPORT | Summary of Care ---
:1980 Author Encounter HQ Ronald(DAKOTAH) [id number] Date(s): 02/20/14 - 02/20/14 [facility] [address] Discharge Diagnosis: Generalized seizure disorder Discharge Disposition: Home Physician Attending: Pancho Mckeon MD Reason for Visit SEIZURES Vital Signs Most recent to oldest [Reference Range]: 1 2 Height 167.64 cm (02/20/14 5:14 PM) Systolic Blood Pressure [90-140 mmHg] 139 mmHg 122 mmHg (02/20/14 6:57 PM) (02/20/14 5:14 PM) Diastolic Blood Pressure [60-90 mmHg] 82 mmHg 74 mmHg (02/20/14 6:57 PM) (02/20/14 5:14 PM) Respiratory Rate [14-20 BRMIN] 18 BRMIN 20 BRMIN (02/20/14 6:57 PM) (02/20/14 5:14 PM) Peripheral Pulse Rate [60-100 bpm] 79 bpm 82 bpm (02/20/14 6:57 PM) (02/20/14 5:14 PM) Weight 65.909 kg (02/20/14 5:14 PM) Body Mass Index 23.45 m2 (02/20/14 5:14 PM) Problem List Condition Effective Dates Status [...] Panic attack(Confirmed) Active Reflex sympathetic dystrophy of 1999 Active upper extremity(Confirmed) RSD - Reflex sympathetic Resolved dystrophy(Confirmed) Seizures(Confirmed) Active Shoulder injury(Confirmed) Resolved Syncope(Confirmed) Active Vasovagal attack(Confirmed) Active Vasovagal syncope(Confirmed) Active 1only when [id number] fx x 8 Allergies, Adverse Reactions, Alerts Substance Reaction Severity Status aspirin ANXIETY/INCREASED HEART RATE Active Food Nuts Active Food Soybean Active naproxen Aspirin Active ANXIETY Other Food Allergy Active Talwin HEAD ACHE AND N/V Active Zofran Active Medications No data available for this section Medications Administered During Your Visit No data [...]
--- OUTSIDE RECORDS SUMMARY | 2017-11-26 11:31 | XMS REPORT | Summary of Care ---
:1980 Author Encounter WILLI Cardenas(DAKOTAH) [id number] Date(s): 01/25/14 - 01/25/14 [facility] [address] Discharge Disposition: Elopement Physician Attending: Marcello Lai MD Reason for Visit SEIZURES Vital Signs Most recent to oldest [Reference Range]: 1 Height 162.56 cm (01/25/14 5:58 PM) Temperature Oral [96.4-99.1 DegF] 96.9 DegF (01/25/14 5:58 PM) Systolic Blood Pressure [90-140 mmHg] 117 mmHg (01/25/14 5:58 PM) Diastolic Blood Pressure [60-90 mmHg] 80 mmHg (01/25/14 5:58 PM) Respiratory Rate [14-20 BRMIN] 16 BRMIN (01/25/14 5:58 PM) Peripheral Pulse Rate [60-100 bpm] 97 bpm (01/25/14 5:58 PM) Weight 59.091 kg (01/25/14 5:58 PM) Body Mass Index 22.36 m2 (01/25/14 5:58 PM) Problem List Condition Effective Dates Status [...] attack(Confirmed) Active Vasovagal syncope(Confirmed) Active 1only when [id number] fx x 8 Allergies, Adverse Reactions, Alerts Substance Reaction Severity Status aspirin ANXIETY/INCREASED HEART RATE Active Food Nuts Active Food Soybean Active naproxen Aspirin Active ANXIETY NKDA Active Other Food Allergy Active Talwin HEAD ACHE AND N/V Active Zofran Active Medications No data available for this section Medications Administered During Your Visit No data available for this section Immunizations Vaccine Date Refusal Reason influenza virus vaccine, inactivated 05/03/10 pneumococcal 23-valent vaccine 03/11/08 Social History Social History Type Response Alcohol Use: Current, Type: Wine, Frequency: 1-2 [...]
--- OUTSIDE RECORDS SUMMARY | 2017-11-26 11:31 | XMS REPORT | Summary of Care ---
:1980 Author Encounter HQ Ronald(DAKOTAH) [id number] Date(s): 02/07/14 - 02/07/14 [facility] [address] Discharge Diagnosis: Seizure Discharge Disposition: Home Physician Attending: Marcello Lai MD Reason for Visit SEIZURES Vital Signs Most recent to oldest [Reference Range]: 1 2 Height 167.64 cm (02/07/14 3:22 PM) Temperature Oral [96.4-99.1 DegF] 97.1 DegF 97.7 DegF (02/07/14 4:30 PM) (02/07/14 3:22 PM) Systolic Blood Pressure [90-140 mmHg] 107 mmHg 124 mmHg (02/07/14 4:30 PM) (02/07/14 3:22 PM) Diastolic Blood Pressure [60-90 mmHg] 61 mmHg 70 mmHg (02/07/14 4:30 PM) (02/07/14 3:22 PM) Respiratory Rate [14-20 BRMIN] 16 BRMIN 16 BRMIN (02/07/14 4:30 PM) (02/07/14 3:22 PM) Peripheral Pulse Rate [60-100 bpm] 86 bpm 94 bpm (02/07/14 4:30 PM) (02/07/14 3:22 PM) Weight 65.909 kg (02/07/14 3:22 PM) Body Mass Index 23.45 m2 (02/07/14 3:22 PM) Problem List Condition Effective Dates Status [...] attack(Confirmed) Active Vasovagal syncope(Confirmed) Active 1only when [id number] fx x 8 Allergies, Adverse Reactions, Alerts Substance Reaction Severity Status aspirin ANXIETY/INCREASED HEART RATE Active Food Nuts Active Food Soybean Active naproxen Aspirin Active ANXIETY NKDA Active Other Food Allergy Active Talwin HEAD ACHE AND N/V Active Zofran Active Medications Saline Flush 0.9% 10 mL, Route: IVP, Drug Form: INJ, Dosing Weight 65.909, kg, PRN, PRN Line Flush , Start date: 02/07/14 15:34:00, Duration: 30 day, Stop date: 03/09/14 15:33:00 Notes: (Same as: BD Posiflush) Start Date: 02/07/14 Stop Date: 02/07/14 Status: Discontinued Results ELECTROLYTES Most recent to oldest [Reference Range]: 1 Sodium Lvl [135-145 mEq/L] 140 mEq/L (02/07/14 4:00 PM) Potassium Lvl [3.5-5.1 mEq/L] 4.0 mEq/L (02/07/14 4:00 PM) Chloride Lvl [95-109 mEq/L] 106 mEq/L (02/07/14 4:00 PM) CO2 [24-32 mEq/L] 27 mEq/L (02/07/14 4:00 PM) AGAP [10.0-20.0 mEq/L] 11.0 mEq/L (02/07/14 4:00 PM) CHEM PANEL Most recent to oldest [Reference Range]: 1 Creatinine Lvl [0.5-1.4 mg/dL] 0.8 mg/dL (02/07/14 4:00 PM) eGFR 96 mL/min/1.73m2 1 *NA* (02/07/14 4:00 PM) BUN [7-22 mg/dL] 6 mg/dL *LOW* (02/07/14 4:00 PM) B/C Ratio [6-25] 8 (02/07/14 4:00 PM) Glucose Lvl [70-99 mg/dL] 83 mg/dL 2 (02/07/14 4:00 PM) Total Protein [6.4-8.4 g/dL] 6.9 g/dL (02/07/14 4:00 PM) Albumin Lvl [3.5-5.0 g/dL] 3.8 g/dL (02/07/14 4:00 PM) Globulin [2.0-4.0 g/dL] 3.1 g/dL (02/07/14 4:00 PM) A/G Ratio [0.7-1.6] 1.2 (02/07/14 4:00 PM) Calcium Lvl [8.5-10.5 mg/dL] 8.8 mg/dL (02/07/14 4:00 PM) ALT [0-65 unit/L] 19 unit/L (02/07/14 4:00 PM) AST [0-37 unit/L] 40 unit/L *HI* (02/07/14 4:00 PM) Alk Phos [39-136 unit/L] 86 unit/L (02/07/14 4:00 PM) Bili Total [0.2-1.3 mg/dL] 0.3 mg/dL (02/07/14 4:00 PM) 1Result Comment: The eGFR is calculated [...] values reflect the clinical guidelines of the [place] [employer].ENDOCRINOLOGY Most recent to oldest [Reference Range]: 1 S Preg [Negative] Negative *NA* (02/07/14 4:00 PM) HEMATOLOGY Most recent to oldest [Reference Range]: 1 WBC [3.7-10.4 K/CMM] 8.5 K/CMM (02/07/14 4:00 PM) RBC [4.20-5.40 M/CMM] 3.83 M/CMM *LOW* (02/07/14 4:00 PM) Hgb [12.0-16.0 g/dL] 12.1 g/dL (02/07/14 4:00 PM) Hct [36.0-48.0 %] 35.3 % *LOW* (02/07/14 4:00 PM) MCV [80.0-98.0 fL] 92.1 fL (02/07/14 4:00 PM) MCH [27.0-31.0 pg] 31.5 pg *HI* (02/07/14 4:00 PM) MCHC [32.0-36.0 g/dL] 34.2 g/dL (02/07/14 4:00 PM) RDW [11.5-14.5 %] 12.9 % (02/07/14 4:00 PM) Platelet [133-450 K/CMM] 305 K/CMM (02/07/14 4:00 PM) MPV [7.4-10.4 fL] 8.5 fL (02/07/14 4:00 PM) Segs [45.0-75.0 %] 50.5 % (02/07/14 4:00 PM) Lymphocytes [20.0-40.0 %] 40.7 % *HI* (02/07/14 4:00 PM) Monocytes [2.0-12.0 %] 6.8 % (02/07/14 4:00 PM) Eosinophils [0.0-4.0 %] 1.3 % (02/07/14 4:00 PM) Basophils [0.0-1.0 %] 0.7 % (02/07/14 4:00 PM) Segs-Bands # [1.5-8.1 K/CMM] 4.3 K/CMM (02/07/14 4:00 PM) Lymphocytes # [1.0-5.5 K/CMM] 3.5 K/CMM (02/07/14 4:00 PM) Monocytes # [0.0-0.8 K/CMM] 0.6 K/CMM (02/07/14 4:00 PM) Eosinophils # [0.0-0.5 K/CMM] 0.1 K/CMM (02/07/14 4:00 PM) Basophils # [0.0-0.2 K/CMM] 0.1 K/CMM (02/07/14 4:00 PM) Medications Administered During Your Visit No [...]
--- OUTSIDE RECORDS SUMMARY | 2017-11-26 11:31 | XMS REPORT | Summary of Care ---
:1980 Author Encounter WILLI Cardenas(DAKOTAH) [id number] Date(s): 03/06/14 - 03/06/14 [facility] [address] [place] [address] Discharge Disposition: Non-Emergent Physician Attending: Christ Mtz MD Reason for Visit OTHER Vital Signs Most recent to oldest [Reference Range]: 1 Height 175.26 cm (03/06/14 5:38 PM) Systolic Blood Pressure [90-140 mmHg] 115 mmHg (03/06/14 5:38 PM) Diastolic Blood Pressure [60-90 mmHg] 89 mmHg (03/06/14 5:38 PM) Respiratory Rate [14-20 BRMIN] 16 BRMIN (03/06/14 5:38 PM) Peripheral Pulse Rate [60-100 bpm] 86 bpm (03/06/14 5:38 PM) Weight 63.636 kg (03/06/14 5:38 PM) Body Mass Index 20.72 m2 (03/06/14 5:38 PM) Problem List Condition Effective Dates Status [...] attack(Confirmed) Active Vasovagal syncope(Confirmed) Active 1only when [id number] fx x 8 Allergies, Adverse Reactions, Alerts [...]
--- OUTSIDE RECORDS SUMMARY | 2017-11-26 11:31 | XMS REPORT | Summary of Care ---
:1980 Author Encounter WILLI Cardenas(DAKOTAH) [id number] Date(s): 11/24/13 - 11/24/13 [facility] [address] Discharge Diagnosis: Anxiety Discharge Disposition: Home Physician Attending: Vitaliy Villagomez MD Reason for Visit SYNCOPE Vital Signs Most recent to oldest [Reference Range]: 1 2 Height 170.18 cm (11/24/13 12:24 PM) Temperature Oral [96.4-99.1 DegF] 97.8 DegF (11/24/13 12:24 PM) Systolic Blood Pressure [90-140 mmHg] 112 mmHg 118 mmHg (11/24/13 1:00 PM) (11/24/13 12:24 PM) Diastolic Blood Pressure [60-90 mmHg] 65 mmHg 74 mmHg (11/24/13 1:00 PM) (11/24/13 12:24 PM) Respiratory Rate [14-20 BRMIN] 18 BRMIN 18 BRMIN (11/24/13 1:00 PM) (11/24/13 12:24 PM) Peripheral Pulse Rate [60-100 bpm] 74 bpm 72 bpm (11/24/13 1:00 PM) (11/24/13 12:24 PM) Weight 68.636 kg (11/24/13 12:24 PM) Body Mass Index 23.7 m2 (11/24/13 12:24 PM) Problem List Condition Effective Dates Status Health Status Informant Anxiety(Confirmed) Active Seizures(Confirmed) Active Allergies, Adverse Reactions, Alerts Substance Reaction Severity Status NKDA Active Medications Xanax 0.5 mg oral tablet 0.5 mg, Route: PO, Drug form: TAB, ONCE, Dosing Weight 68.636, kg, Priority: STAT, Start date: 11/24/13 12:44:00, Stop date: 11/24/13 12:44:00 Start Date: 11/24/13 Stop Date: 11/24/13 Status: Completed Results URINE CHEM Most recent to oldest [Reference Range]: 1 U Preg [Negative] Negative (11/24/13 1:00 PM) Medications Administered During Your Visit No data available for this section Immunizations No data available for this section Procedures Procedure Type Body Site Date of Procedure Related Diagnosis Hysterectomy
--- OUTSIDE RECORDS SUMMARY | 2017-11-26 11:31 | XMS REPORT | Summary of Care ---
:1980 Author Encounter HQ Ronald(DAKOTAH) [id number] Date(s): 01/05/14 - 01/05/14 [facility] [address] Discharge Diagnosis: Chronic back pain Discharge Diagnosis: Seizure Discharge Disposition: Home Physician Attending: Wing Edwards DO Reason for Visit OTHER Vital Signs Most recent to oldest 1 2 3 [Reference Range]: Height 170.18 cm (01/05/14 9:02 AM) Temperature Oral [96.4-99.1 98.3 DegF DegF] (01/05/14 9:02 AM) Systolic Blood Pressure 109 mmHg 116 mmHg 113 mmHg [90-140 mmHg] (01/05/14 12:05 PM) (01/05/14 11:30 AM) (01/05/14 10:30 AM) Diastolic Blood Pressure 64 mmHg 69 mmHg 74 mmHg [60-90 mmHg] (01/05/14 12:05 PM) (01/05/14 11:30 AM) (01/05/14 10:30 AM) Respiratory Rate [14-20 18 BRMIN 18 BRMIN 18 BRMIN BRMIN] (01/05/14 12:05 PM) (01/05/14 11:30 AM) (01/05/14 10:30 AM) Peripheral Pulse Rate 60 bpm 64 bpm 62 bpm [60-100 bpm] (01/05/14 12:05 PM) (01/05/14 11:30 AM) (01/05/14 10:30 AM) Weight 84.091 kg (01/05/14 9:02 AM) Body Mass Index 29.04 m2 (01/05/14 9:02 AM) Problem List Condition Effective Dates Status Health [...] attack(Confirmed) Active Vasovagal syncope(Confirmed) Active 1only when [id number] fx x 8 Allergies, Adverse Reactions, Alerts Substance Reaction Severity Status aspirin ANXIETY/INCREASED HEART RATE Active Food Nuts Active Food Soybean Active naproxen Aspirin Active ANXIETY NKDA Active Other Food Allergy Active Talwin HEAD ACHE AND N/V Active Zofran Active Medications Benadryl 12.5 mg, 0.25 mL, Route: IVP, Drug form: INJ, ONCE, Dosing Weight 84.091, kg, Priority: STAT, Start date: 01/05/14 9:19:00, Stop date: 01/05/14 9:19:00 Notes: (Same as: Benadryl) Start Date: 01/05/14 Stop Date: 01/05/14 Status: Completedmorphine Sulfate 2 mg, 1 mL, Route: IVP, Drug form: INJ, ONCE, Dosing Weight 84.091, kg, Priority : STAT, Start date: 01/05/14 9:18:00, Stop date: 01/05/14 9:18:00 Notes: (Same as:MORPhine Sulfate) Start Date: 01/05/14 Stop Date: 01/05/14 Status: CompletedPhenergan 12.5 mg, Route: IVPB, ONCE, Dosing Weight 84.091, kg, Priority: STAT, Start date : 01/05/14 10:24:00,Stop date: 01/05/14 10:24:00 Start Date: 01/05/14 Stop Date: 01/05/14 Status: CompletedVyvanse 60 mg oral capsule 60 mg=1 cap, PO, QAM, 0 Refill(s) Start Date: 01/05/14 Status: Ordered Results ELECTROLYTES Most recent to oldest [Reference Range]: 1 Sodium Lvl [135-145 mEq/L] 140 mEq/L (01/05/14 10:10 AM) Potassium Lvl [3.5-5.1 mEq/L] 4.1 mEq/L (01/05/14 10:10 AM) Chloride Lvl [95-109 mEq/L] 107 mEq/L (01/05/14 10:10 AM) CO2 [24-32 mEq/L] 23 mEq/L *LOW* (01/05/14 10:10 AM) AGAP [10.0-20.0 mEq/L] 14.1 mEq/L (01/05/14 10:10 AM) CHEM PANEL Most recent to oldest [Reference Range]: 1 Creatinine Lvl [0.5-1.4 mg/dL] 0.7 mg/dL (01/05/14 10:10 AM) eGFR 113 mL/min/1.73m2 1 *NA* (01/05/14 10:10 AM) BUN [7-22 mg/dL] 12 mg/dL (01/05/14 10:10 AM) Glucose Lvl [70-99 mg/dL] 103 mg/dL 2 *HI* (01/05/14 10:10 AM) Calcium Lvl [8.5-10.5 mg/dL] 8.9 mg/dL (01/05/14 10:10 AM) 1Result Comment: The eGFR is calculated using [...] values reflect the clinical guidelines of the [place] [employer].HEMATOLOGY Most recent to oldest [Reference Range]: 1 WBC [3.7-10.4 K/CMM] 7.8 K/CMM (01/05/14 10:10 AM) RBC [4.20-5.40 M/CMM] 3.88 M/CMM *LOW* (01/05/14 10:10 AM) Hgb [12.0-16.0 g/dL] 12.5 g/dL (01/05/14 10:10 AM) Hct [36.0-48.0 %] 35.6 % *LOW* (01/05/14 10:10 AM) MCV [80.0-98.0 fL] 91.6 fL (01/05/14 10:10 AM) MCH [27.0-31.0 pg] 32.2 pg *HI* (01/05/14 10:10 AM) MCHC [32.0-36.0 g/dL] 35.1 g/dL (01/05/14 10:10 AM) RDW [11.5-14.5 %] 13.4 % (01/05/14 10:10 AM) Platelet [133-450 K/CMM] 275 K/CMM (01/05/14 10:10 AM) MPV [7.4-10.4 fL] 8.8 fL (01/05/14 10:10 AM) Segs [45.0-75.0 %] 54.4 % (01/05/14 10:10 AM) Lymphocytes [20.0-40.0 %] 35.8 % (01/05/14 10:10 AM) Monocytes [2.0-12.0 %] 8.5 % (01/05/14 10:10 AM) Eosinophils [0.0-4.0 %] 0.6 % (01/05/14 10:10 AM) Basophils [0.0-1.0 %] 0.7 % (01/05/14 10:10 AM) Segs-Bands # [1.5-8.1 K/CMM] 4.2 K/CMM (01/05/14 10:10 AM) Lymphocytes # [1.0-5.5 K/CMM] 2.8 K/CMM (01/05/14 10:10 AM) Monocytes # [0.0-0.8 K/CMM] 0.7 K/CMM (01/05/14 10:10 AM) Basophils # [0.0-0.2 K/CMM] 0.1 K/CMM (01/05/14 10:10 AM) Medications Administered During Your Visit No data [...]
--- OUTSIDE RECORDS SUMMARY | 2017-11-26 11:32 | XMS REPORT | Summary of Care ---
:1980 Author Encounter WILLI Cardenas(DAKOTAH) [id number] Date(s): 06/07/14 - 06/07/14 [facility] [address] [place] [address]- Discharge Diagnosis: Seizure disorder Discharge Disposition: Home Physician Attending: Aamir Lamar MD Vital Signs Most recent to oldest [Reference 1 2 3 Range]: Height 162.56 cm (06/07/14 3:09 PM) Blood Pressure [90-140/60-90 mmHg] 104/64 mmHg 104/63 mmHg (06/07/14 6:19 PM) (06/07/14 5:49 PM) Systolic Blood Pressure [90-140 123 mmHg mmHg] (06/07/14 7:09 PM) Diastolic Blood Pressure [60-90 84 mmHg mmHg] (06/07/14 7:09 PM) Respiratory Rate [14-20 BRMIN] 18 BRMIN 16 BRMIN 20 BRMIN (06/07/14 7:09 PM) (06/07/14 6:19 PM) (06/07/14 5:49 PM) Peripheral Pulse Rate [60-100 bpm] 89 bpm 78 bpm 80 bpm (06/07/14 7:09 PM) (06/07/14 6:19 PM) (06/07/14 5:49 PM) Weight 72.727 kg (06/07/14 3:09 PM) Body Mass Index 27.52 m2 (06/07/14 3:09 PM) Problem List Condition Effective Dates Status [...] attack(Confirmed) Active Vasovagal syncope(Confirmed) Active 1only when [id number] fx x 8 Allergies, Adverse Reactions, Alerts Substance Reaction Severity Status aspirin ANXIETY/INCREASED HEART RATE Active Food Nuts Active Food Soybean Active naproxen Aspirin Active ANXIETY Other Food Allergy Active Talwin HEAD ACHE AND N/V Active Zofran Active Medications LORazepam 2 mg, 1 mL, Route: IVP, Drug form: INJ, ONCE, Dosing Weight 72.727, kg, Priority : STAT, Start date: 06/07/14 15:37:00, Stop date: 06/07/14 15:37:00 Notes: (Same as: Ativan) Start Date: 06/07/14 Stop Date: 06/07/14 Status: Completed Results ELECTROLYTES Most recent to oldest [Reference Range]: 1 Sodium Lvl [135-145 mEq/L] 142 mEq/L (06/07/14 3:52 PM) Potassium Lvl [3.5-5.1 mEq/L] 3.9 mEq/L (06/07/14 3:52 PM) Chloride Lvl [95-109 mEq/L] 108 mEq/L (06/07/14 3:52 PM) CO2 [24-32 mEq/L] 27 mEq/L (06/07/14 3:52 PM) AGAP [10.0-20.0 mEq/L] 10.9 mEq/L (06/07/14 3:52 PM) CHEM PANEL Most recent to oldest [Reference Range]: 1 Creatinine Lvl [0.5-1.4 mg/dL] 1.0 mg/dL (06/07/14 3:52 PM) eGFR 74 mL/min/1.73m2 1 *NA* (06/07/14 3:52 PM) BUN [7-22 mg/dL] 9 mg/dL (06/07/14 3:52 PM) B/C Ratio [6-25] 9 (06/07/14 3:52 PM) Glucose Lvl [70-99 mg/dL] 84 mg/dL 2 (06/07/14 3:52 PM) Total Protein [6.4-8.4 g/dL] 7.6 g/dL (06/07/14 3:52 PM) Albumin Lvl [3.5-5.0 g/dL] 4.1 g/dL (06/07/14 3:52 PM) Globulin [2.0-4.0 g/dL] 3.5 g/dL (06/07/14 3:52 PM) A/G Ratio [0.7-1.6] 1.2 (06/07/14 3:52 PM) Calcium Lvl [8.5-10.5 mg/dL] 9.1 mg/dL (06/07/14 3:52 PM) Phosphorus [2.5-4.5 mg/dL] 3.4 mg/dL (06/07/14 3:52 PM) Magnesium Lvl [1.8-2.4 mg/dL] 2.0 mg/dL (06/07/14 3:52 PM) ALT [0-65 unit/L] 18 unit/L (06/07/14 3:52 PM) AST [0-37 unit/L] 16 unit/L (06/07/14 3:52 PM) Alk Phos [39-136 unit/L] 100 unit/L (06/07/14 3:52 PM) Bili Total [0.2-1.3 mg/dL] 0.3 mg/dL (06/07/14 3:52 PM) 1Result Comment: The eGFR is calculated [...] values reflect the clinical guidelines of the [place] [employer].HEMATOLOGY Most recent to oldest [Reference Range]: 1 WBC [3.7-10.4 K/CMM] 8.8 K/CMM (06/07/14 3:52 PM) RBC [4.20-5.40 M/CMM] 4.23 M/CMM (06/07/14 3:52 PM) Hgb [12.0-16.0 g/dL] 13.4 g/dL (06/07/14 3:52 PM) Hct [36.0-48.0 %] 39.8 % (06/07/14 3:52 PM) MCV [80.0-98.0 fL] 93.9 fL (06/07/14 3:52 PM) MCH [27.0-31.0 pg] 31.5 pg *HI* (06/07/14 3:52 PM) MCHC [32.0-36.0 g/dL] 33.6 g/dL (06/07/14 3:52 PM) RDW [11.5-14.5 %] 12.8 % (06/07/14 3:52 PM) Platelet [133-450 K/CMM] 276 K/CMM (06/07/14 3:52 PM) MPV [7.4-10.4 fL] 9.0 fL (06/07/14 3:52 PM) Segs [45.0-75.0 %] 51.5 % (06/07/14 3:52 PM) Lymphocytes [20.0-40.0 %] 38.1 % (06/07/14 3:52 PM) Monocytes [2.0-12.0 %] 8.1 % (06/07/14 3:52 PM) Eosinophils [0.0-4.0 %] 1.6 % (06/07/14 3:52 PM) Basophils [0.0-1.0 %] 0.7 % (06/07/14 3:52 PM) Segs-Bands # [1.5-8.1 K/CMM] 4.5 K/CMM (06/07/14 3:52 PM) Lymphocytes # [1.0-5.5 K/CMM] 3.3 K/CMM (06/07/14 3:52 PM) Monocytes # [0.0-0.8 K/CMM] 0.7 K/CMM (06/07/14 3:52 PM) Eosinophils # [0.0-0.5 K/CMM] 0.1 K/CMM (06/07/14 3:52 PM) Basophils # [0.0-0.2 K/CMM] 0.1 K/CMM (06/07/14 3:52 PM) Immunizations Vaccine Date Refusal Reason influenza virus vaccine, inactivated 05/03/10 pneumococcal 23-valent vaccine 03/11/08 Procedures Procedure Date Related Diagnosis Body Site Nerve block Social History Social History Type Response Substance Abuse Use: None. Alcohol Past, Type Wine. Frequency: 1-2 times per month. Started age 20 Years. Previous treatment: None. Alcohol use interferes with work or home: No. Drinks more than intended: No. Others hurt by drinking: No. Ready to change: No. Household alcohol concerns: No. Smoking Status Former smoker; Type: Cigarettes; Previous treatment: None; Ready to change: No; Concerns about tobacco use in household: No; Exposure to Tobacco Smoke None; Cigarette Smoking Last 365 Days No; Reg Smoking Cessation Counseling No Assessment and Plan No data available for this section
--- OUTSIDE RECORDS SUMMARY | 2017-11-26 11:32 | XMS REPORT | Summary of Care ---
:1980 Author Encounter WILLI Cardenas(DAKOTAH) [id number] Date(s): 06/02/14 - 06/02/14 [facility] [address] [place] [address]- [phone] Discharge Diagnosis: Allergic reaction Discharge Disposition: Home Physician Attending: Timbo Chris MD Vital Signs Most recent to oldest [Reference Range]: 1 2 Height 167.64 cm (06/02/14 8:45 AM) Blood Pressure [90-140/60-90 mmHg] 141/72 mmHg 141/71 mmHg *HI* *HI* (06/02/14 9:08 AM) (06/02/14 8:45 AM) Respiratory Rate [14-20 BRMIN] 19 BRMIN 20 BRMIN (06/02/14 9:08 AM) (06/02/14 8:45 AM) Peripheral Pulse Rate [60-100 bpm] 81 bpm 97 bpm (06/02/14 9:08 AM) (06/02/14 8:45 AM) Weight 70 kg (06/02/14 8:45 AM) Body Mass Index 24.91 m2 (06/02/14 8:45 AM) Problem List Condition Effective Dates Status [...] attack(Confirmed) Active Vasovagal syncope(Confirmed) Active 1only when [id number] fx x 8 Allergies, Adverse Reactions, Alerts Substance Reaction Severity Status aspirin ANXIETY/INCREASED HEART RATE Active Food Nuts Active Food Soybean Active naproxen Aspirin Active ANXIETY Other Food Allergy Active Talwin HEAD ACHE AND N/V Active Zofran Active Medications No data available for this section Results No data available for this section Immunizations Vaccine Date Refusal Reason influenza virus vaccine, inactivated 05/03/10 pneumococcal 23-valent vaccine 03/11/08 Procedures No data available for this section Social History Social History Type Response Substance Abuse Use: None. Alcohol Current, Type Wine. Frequency: 1-2 times per month. Started age 20 Years. Previous treatment: None. Alcohol use interferes with work or home: No. Drinks more than intended: No. Others hurt by drinking: No. Ready to change: No. Household alcohol concerns: No. Smoking Status Never smoker; Type: Cigarettes; Previous treatment: None; Ready to change: No; Concerns about tobacco use in household: No; Exposure to Tobacco Smoke None; Cigarette Smoking Last 365 Days No; Reg Smoking Cessation Counseling No Assessment and Plan No data available for this section
--- OUTSIDE RECORDS SUMMARY | 2017-11-26 11:32 | XMS REPORT | Summary of Care ---
:1980 Author Organization [facility] Address [address] [place] [id number]- Encounter HQ Ronald(DAKOTAH) [id number] Date(s): 11/16/14 - 11/16/[address] [address]- Discharge Diagnosis: Allergic reaction Discharge Disposition: Home Attending Physician: Karlie Valera DO Vital Signs Most recent to oldest [Reference Range]: 1 2 3 Height 170.18 cm (11/16/14 12:26 PM) Most recent to oldest [Reference Range]: 1 2 3 Temperature Oral [96.4-99.1 DegF] 98.6 DegF (11/16/14 2:23 PM) Most recent to oldest 1 2 3 [Reference Range]: Blood Pressure [90-140/60-90 122/73 mmHg 129/74 mmHg 131/70 mmHg mmHg] (11/16/14 3:23 PM) (11/16/14 2:23 PM) (11/16/14 12:31 PM) Most recent to oldest 1 2 3 [Reference Range]: Respiratory Rate [14-20 BRMIN] 18 BRMIN 18 BRMIN 17 BRMIN (11/16/14 3:23 PM) (11/16/14 2:23 PM) (11/16/14 12:26 PM) Most recent to oldest 1 2 3 [Reference Range]: Peripheral Pulse Rate [60-100 75 bpm 85 bpm 95 bpm bpm] (11/16/14 3:23 PM) (11/16/14 2:23 PM) (11/16/14 12:31 PM) Most recent to oldest [Reference Range]: 1 2 3 Weight 71.818 kg (11/16/14 12:26 PM) Most recent to oldest [Reference Range]: 1 2 3 Body Mass Index 24.8 m2 (11/16/14 12:26 PM) Problem List Condition Effective Dates Status [...] extremity(Confirmed) RSD - Reflex sympathetic Resolved dystrophy(Confirmed) Seizure(Confirmed) Resolved Seizures(Confirmed) Active Shoulder injury(Confirmed) Resolved Syncope(Confirmed) Active Vasovagal attack(Confirmed) Active Vasovagal syncope(Confirmed) Active 1only when [id number] fx x 8 Allergies, Adverse Reactions, Alerts Substance Reaction Severity Status aspirin ANXIETY/INCREASED HEART RATE Active Food Nuts Active Food Soybean Active naproxen Aspirin Active ANXIETY Other Food Allergy Active Talwin HEAD ACHE AND N/V Active Zofran Active Medications Benadryl 25 mg oral capsule 50 mg=2 cap, PO, Q6H, PRN Itching, X 3 day, # 24 cap, 0 Refill(s) Start Date: 11/16/14 Stop Date: 11/19/14 Status: OrderedEpiPen Auto-Injector 0.3 mg injectable kit 0.3 mg, IM, ONCE, as needed for severe allergic reaction, # 1 unit, 0 Refill(s) Special Instructions: as needed for severe allergic reaction Start Date: 11/16/14 Status: OrderedPepcid 40 mg oral tablet 40 mg, 1 tab, Route: PO, Drug form: TAB, ONCE, Dosing Weight 71.818, kg, Start date: 11/16/14 13:11:00, Stop date: 11/16/14 13:11:00 Start Date: 11/16/14 Stop Date: 11/16/14 Status: CompletedpredniSONE 20 mg oral tablet 40 mg=2 tab, PO, Daily, X 5 day, # 10 tab, 0 Refill(s) Start Date: 11/16/14 Stop Date: 11/21/14 Status: OrderedSodium Chloride 0.9% (Bolus) IV 1,000 mL, 1,000 ml/hr, Infuse Over: 1 hr, Route: IV, 1,000, Drug form: INJ, ONCE , Priority: STAT, Dosing Weight 71.818 kg, Start date: 11/16/14 12:50:00, Duration: 1 doses or times, Stop date: 11/17/1511:50:00 Start Date: 11/16/14 Stop Date: 11/16/14 Status: CompletedSolu-MEDROL 125 mg, 2 mL, Route: IVP, Drug form: INJ, ONCE, Dosing Weight 71.818, kg, Priority: STAT, Start date: 11/16/14 12:50:00, Stop date: 11/16/14 12:50:00 Notes: (Same as:Solu-MEDROL, A-Methapred) Start Date: 11/16/14 Stop Date: 11/16/14 Status: Completed Results No data available for this section Immunizations Vaccine Date Refusal Reason influenza virus vaccine, inactivated 05/03/10 pneumococcal 23-valent vaccine 03/11/08 Procedures Procedure Date Related Diagnosis Body Site Back fusion Cholecystectomy Hand Hand repair1 Hysterectomy Hysterectomy Nerve block Shoulder Thyroidectomy2 1thumb joint [id number] Social History Social History Type Response Substance [...]
--- OUTSIDE RECORDS SUMMARY | 2017-11-26 11:32 | XMS REPORT | Summary of Care ---
:1980 Author Encounter WILLI Cardenas(DAKOTAH) [id number] Date(s): 06/23/14 - 06/23/14 [facility] [address] [place] [address]- Discharge Diagnosis: Seizure Discharge Diagnosis: Colitis Discharge Diagnosis: Abdominal pain Discharge Diagnosis: Constipation Discharge Disposition: Home Physician Attending: Liborio Bahena MD Vital Signs Most recent to oldest 1 2 3 [Reference Range]: Height 165.1 cm (06/23/14 8:16 AM) Temperature Oral [96.4-99.1 98.2 DegF DegF] (06/23/14 8:16 AM) Blood Pressure [90-140/60-90 136/70 mmHg 132/72 mmHg 123/61 mmHg mmHg] (06/23/14 2:30 PM) (06/23/14 1:20 PM) (06/23/14 10:51 AM) Respiratory Rate [14-20 BRMIN] 18 BRMIN 18 BRMIN 18 BRMIN (06/23/14 2:30 PM) (06/23/14 1:20 PM) (06/23/14 10:51 AM) Peripheral Pulse Rate [60-100 72 bpm 72 bpm 72 bpm bpm] (06/23/14 2:30 PM) (06/23/14 1:20 PM) (06/23/14 10:51 AM) Weight 70.455 kg (06/23/14 8:16 AM) Body Mass Index 25.85 m2 (06/23/14 8:16 AM) Problem List Condition Effective Dates Status [...] attack(Confirmed) Active Vasovagal syncope(Confirmed) Active 1only when [id number] fx x 8 Allergies, Adverse Reactions, Alerts Substance Reaction Severity Status aspirin ANXIETY/INCREASED HEART RATE Active Food Nuts Active Food Soybean Active naproxen Aspirin Active ANXIETY Other Food Allergy Active Talwin HEAD ACHE AND N/V Active Zofran Active Medications Cipro 500 mg oral tablet 500 mg=1 tab, PO, Q12H, # 20 tab, 0 Refill(s) Start Date: 06/23/14 Stop Date: 07/03/14 Status: OrderedColace 100 mg oral capsule 100 mg=1 cap, PO, BID, Constipation, # 20 cap, 0 Refill(s) Start Date: 06/23/14 Status: OrderedFlagyl 500 mg oral tablet 500 mg=1 tab, PO, Q8H, # 30 tab, 0 Refill(s) Start Date: 06/23/14 Stop Date: 07/03/14 Status: OrderedNorco 5/325 oral tablet 1 tab, Route: PO, Drug Form: TAB, Dosing Weight 70.455, kg, ONCE, STAT, Start date: 06/23/14 13:05:00, Stop date: 06/23/14 13:05:00 Start Date: 06/23/14 Stop Date: 06/23/14 Status: CompletedNorco 5/325 oral tablet 1 tab, Route: PO, Drug Form: TAB, Dosing Weight 70.455, kg, ONCE, STAT, Start date: 06/23/14 8:47:00, Stop date: 06/23/14 8:47:00 Start Date: 06/23/14 Stop Date: 06/23/14 Status: CompletedNS (Bolus) IV 1,000 mL, 1,000 ml/hr, Infuse Over: 1 hr, Route: IV, ONCE, Priority: STAT, Dosing Weight 70.455 kg, Start date: 06/23/14 8:47:00, Duration: 1 doses or times, Stop date: 06/23/14 8:47:00 Start Date: 06/23/14 Stop Date: 06/23/14 Status: CompletedSaline Flush 0.9% 10 mL, Route: IVP, Drug Form: INJ, Dosing Weight 70.455, kg, PRN, PRN Line Flush , Start date: 06/23/14 8:47:00, Duration: 30 day, Stop date: 07/23/14 8:46:00 Notes: (Same as: BD Posiflush) Start Date: 06/23/14 Stop Date: 06/23/14 Status: Discontinued Results ELECTROLYTES Most recent to oldest [Reference Range]: 1 Sodium Lvl [135-145 mEq/L] 140 mEq/L (06/23/14 8:54 AM) Potassium Lvl [3.5-5.1 mEq/L] 3.9 mEq/L (06/23/14 8:54 AM) Chloride Lvl [95-109 mEq/L] 112 mEq/L *HI* (06/23/14 8:54 AM) CO2 [24-32 mEq/L] 23 mEq/L *LOW* (06/23/14 8:54 AM) AGAP [10.0-20.0 mEq/L] 8.9 mEq/L *LOW* (06/23/14 8:54 AM) CHEM PANEL Most recent to oldest [Reference Range]: 1 Creatinine Lvl [0.5-1.4 mg/dL] 0.9 mg/dL (06/23/14 8:54 AM) eGFR 84 mL/min/1.73m2 1 *NA* (06/23/14 8:54 AM) BUN [7-22 mg/dL] 9 mg/dL (06/23/14 8:54 AM) B/C Ratio [6-25] 10 (06/23/14 8:54 AM) Glucose Lvl [70-99 mg/dL] 83 mg/dL 2 (06/23/14 8:54 AM) Total Protein [6.4-8.4 g/dL] 6.4 g/dL (06/23/14 8:54 AM) Albumin Lvl [3.5-5.0 g/dL] 3.6 g/dL (06/23/14 8:54 AM) Globulin [2.0-4.0 g/dL] 2.8 g/dL (06/23/14 8:54 AM) A/G Ratio [0.7-1.6] 1.3 (06/23/14 8:54 AM) Calcium Lvl [8.5-10.5 mg/dL] 8.9 mg/dL (06/23/14 8:54 AM) ALT [0-65 unit/L] 16 unit/L (06/23/14 8:54 AM) AST [0-37 unit/L] 14 unit/L (06/23/14 8:54 AM) Alk Phos [39-136 unit/L] 83 unit/L (06/23/14 8:54 AM) Bili Total [0.2-1.3 mg/dL] 0.2 mg/dL (06/23/14 8:54 AM) Lipase Lvl [73-393 unit/L] 78 unit/L (06/23/14 8:54 AM) 1Result Comment: The eGFR is calculated [...] reflect the clinical guidelines of the [place] [employer].CARDIAC ENZYMES Most recent to oldest [Reference Range]: 1 Total CK [12-191 unit/L] 76 unit/L (06/23/14 8:54 AM) CK MB [0.5-3.6 ng/mL] 1.1 ng/mL (06/23/14 8:54 AM) CK MB Index [0.0-2.5] 1.4 (06/23/14 8:54 AM) Troponin-I [0.00-0.40 ng/mL] <0.02 ng/mL (06/23/14 8:54 AM) URINE AND STOOL Most recent to oldest [Reference Range]: 1 UA Turbidity [Clear] Clear (06/23/14 8:54 AM) UA Color [Yellow] Yellow *NA* (06/23/14 8:54 AM) UA pH [5.0-8.0] 7.5 (06/23/14 8:54 AM) UA Spec Grav [<=1.030] 1.010 (06/23/14 8:54 AM) UA Glucose [Negative mg/dL] Negative mg/dL (06/23/14 8:54 AM) UA Blood [Negative] Negative (06/23/14 8:54 AM) UA Ketones [Negative mg/dL] Negative mg/dL *NA* (06/23/14 8:54 AM) UA Protein [Negative mg/dL] Negative mg/dL (06/23/14 8:54 AM) UA Urobilinogen [0.1-1.0 EU/dL] 0.2 EU/dL (06/23/14 8:54 AM) UA Bili [Negative] Negative *NA* (06/23/14 8:54 AM) UA Leuk Est [Negative] Negative (06/23/14 8:54 AM) UA Nitrite [Negative] Negative (06/23/14 8:54 AM) UA WBC [None Seen /HPF] 0-2 /HPF (06/23/14 8:54 AM) UA RBC [0-2 /HPF] 0-2 /HPF (06/23/14 8:54 AM) UA Bacteria [None Seen /HPF] Occasional /HPF (06/23/14 8:54 AM) UA Sq Epi [Few /LPF] Few /LPF (06/23/14 8:54 AM) UA Amorph Desire [None Seen /HPF] Occasional /HPF *ABN* (06/23/14 8:54 AM) HEMATOLOGY Most recent to oldest [Reference Range]: 1 WBC [3.7-10.4 K/CMM] 10.7 K/CMM *HI* (06/23/14 8:54 AM) RBC [4.20-5.40 M/CMM] 4.01 M/CMM *LOW* (06/23/14 8:54 AM) Hgb [12.0-16.0 g/dL] 12.4 g/dL (06/23/14 8:54 AM) Hct [36.0-48.0 %] 36.7 % (06/23/14 8:54 AM) MCV [80.0-98.0 fL] 91.7 fL (06/23/14 8:54 AM) MCH [27.0-31.0 pg] 31.0 pg (06/23/14 8:54 AM) MCHC [32.0-36.0 g/dL] 33.8 g/dL (06/23/14 8:54 AM) RDW [11.5-14.5 %] 12.7 % (06/23/14 8:54 AM) Platelet [133-450 K/CMM] 275 K/CMM (06/23/14 8:54 AM) MPV [7.4-10.4 fL] 9.4 fL (06/23/14 8:54 AM) Segs [45.0-75.0 %] 75.2 % *HI* (06/23/14 8:54 AM) Lymphocytes [20.0-40.0 %] 16.8 % *LOW* (06/23/14 8:54 AM) Monocytes [2.0-12.0 %] 6.7 % (06/23/14 8:54 AM) Eosinophils [0.0-4.0 %] 0.9 % (06/23/14 8:54 AM) Basophils [0.0-1.0 %] 0.4 % (06/23/14 8:54 AM) Segs-Bands # [1.5-8.1 K/CMM] 8.1 K/CMM (06/23/14 8:54 AM) Lymphocytes # [1.0-5.5 K/CMM] 1.8 K/CMM (06/23/14 8:54 AM) Monocytes # [0.0-0.8 K/CMM] 0.7 K/CMM (06/23/14 8:54 AM) Eosinophils # [0.0-0.5 K/CMM] 0.1 K/CMM (06/23/14 8:54 AM) Immunizations Vaccine Date Refusal Reason influenza virus [...]
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
--- OUTSIDE RECORDS SUMMARY | 2017-11-26 11:32 | XMS REPORT | Summary of Care ---
:1980 Author Encounter [facility](DAKOTAH) [id number] Date(s): 06/28/14 - 06/29/14 [address] [place] [address]- Discharge Disposition: Home Physician Attending: Marcello Jones MD Physician Admitting: Marcello Jones MD Vital Signs Most recent to oldest 1 2 3 [Reference Range]: Height 167.64 cm 167.64 cm (06/28/14 9:37 PM) (06/28/14 3:12 PM) Temperature Oral [96.4-99.1 98.4 DegF 97.8 DegF 98.1 DegF DegF] (06/29/14 8:00 AM) (06/29/14 4:00 AM) (06/29/14 12:00 AM) Blood Pressure [90-140/60-90 101/60 mmHg 99/64 mmHg 114/69 mmHg mmHg] (06/29/14 7:42 AM) (06/29/14 4:00 AM) (06/29/14 12:00 AM) Respiratory Rate [14-20 18 BRMIN 17 BRMIN 17 BRMIN BRMIN] (06/29/14 7:42 AM) (06/29/14 4:00 AM) (06/29/14 12:00 AM) Peripheral Pulse Rate [60-100 66 bpm 78 bpm 92 bpm bpm] (06/29/14 4:00 AM) (06/29/14 12:00 AM) (06/28/14 9:40 PM) Weight 31.08 kg 67.727 kg (06/28/14 9:37 PM) (06/28/14 3:12 PM) Body Mass Index 11.06 m2 24.1 m2 (06/28/14 9:37 PM) (06/28/14 3:12 PM) Problem List Condition Effective Dates Status [...] attack(Confirmed) Active Vasovagal syncope(Confirmed) Active 1only when [id number] fx x 8 Allergies, Adverse Reactions, Alerts Substance Reaction Severity Status aspirin ANXIETY/INCREASED HEART RATE Active Food Nuts Active Food Soybean Active naproxen Aspirin Active ANXIETY Other Food Allergy Active Talwin HEAD ACHE AND N/V Active Zofran Active Medications acetaminophen 650 mg, 2 tab, Route: PO, Drug form: TAB, Q4H, Dosing Weight 67.727, kg, PRN Pain 1-3/Temp > 100.4 F, Start date: 06/28/14 20:43:00, Duration: 30 day, Stop date: 07/28/14 20:42:00 Notes: Do not exceed 4 gm/day. (Same as: Tylenol) Start Date: 06/28/14 Stop Date: 06/29/14 Status: DiscontinuedAmbien 5 mg, 1 tab, Route: PO, Drug form: TAB, Bedtime, Start date: 06/29/14 0:00:00, Duration: 30 day, Stop date: 07/28/14 21:00:00 Notes: (Same As: Ambien) Start Date: 06/29/14 Stop Date: 06/29/14 Status: DiscontinuedBenadryl 25 mg, 0.5 mL, Route: IVP, Drug form: INJ, ONCE, Dosing Weight 67.727, kg, Priority: STAT, Start date: 06/28/14 18:45:00, Stop date: 06/28/14 18:45:00 Notes: (Same as: Benadryl) Start Date: 06/28/14 Stop Date: 06/28/14 Status: Completedbisacodyl 10 mg, 1 supp, Route: VT, Drug form: SUPP, Daily, Dosing Weight 67.727, kg, PRN Constipation, Start date: 06/28/14 20:44:00, Duration: 30 day, Stop date: 20:43:00 Notes: (Same As: Dulcolax, Bisco-Lax) Start Date: 06/28/14 Stop Date: 06/29/14 Status: DiscontinuedcefTRIAXone + Sodium Chloride 0.9% IV 100 mL 1 gm, Route: IVPB, [id number], Dosing Weight 67.727, kg, Start date: 06/28/14 21:00 :00, Duration: 30 day, Stop date: 07/27/14 21:00:00 Notes: (Same As: Rocephin). Use with 100ml NS mini-bag PLUS and infuse over 30 min Start Date: 06/28/14 Stop Date: 06/29/14 Status: DiscontinuedCipro 400 mg, Route: IVPB, ONCE, Dosing Weight 67.727, kg, Priority: STAT, Start date : 06/28/14 19:54:00, Stop date: 06/28/14 19:54:00 Start Date: 06/28/14 Stop Date: 06/28/14 Status: Completedciprofloxacin 400 mg, 200 mL, Route: IVPB, Drug form: INJ, [id number], Dosing Weight 31.08, kg, Start date: 06/29/14 2:00:00, Duration: 30 day, Stop date: 07/28/14 14:00:00 Notes: Do not refrigerate Start Date: 06/29/14 Stop Date: 06/29/14 Status: DiscontinuedCymbalta 60 mg, 2 cap, Route: PO, Drug form: DRC, QAM, Dosing Weight 31.08, kg, Start date: 06/29/14 9:00:00,Duration: 30 day, Stop date: 07/28/14 9:00:00 Notes: (Same as: Cymbalta) (Do Not Crush) Start Date: 06/29/14 Stop Date: 06/29/14 Status: DiscontinuedCymbalta 60 mg oral delayed release capsule 60 mg=1 cap, PO, QAM, 0 Refill(s) Start Date: 06/28/14 Status: [id number] 1,000 mL 1,000 mL, Rate: 125 ml/hr, Infuse over: 8 hr, Route: IV, Dosing Weight 67.727 kg , Total Volume: 1,000, Start date: 06/28/14 20:46:00, Duration: 30 day, Stop date: 07/28/14 20:45:00 Start Date: 06/28/14 Stop Date: 06/29/14 Status: DiscontinuedDilaudid 0.5 mg, 0.25 mL, Route: IV, Drug form: INJ, Q4H, Dosing Weight 31.08, kg, PRN Pain Score 7-10, Startdate: 06/29/14 0:28:00, Duration: 30 day, Stop date: 07/29 0:27:00 Notes: (Same as: Dilaudid) Start Date: 06/29/14 Stop Date: 06/29/14 Status: DiscontinuedFlagyl 500 mg, 100 mL, Route: IVPB, Drug form: INJ, ONCE, Dosing Weight 67.727, kg, Priority: STAT, Start date: 06/28/14 19:55:00, Stop date: 06/28/14 19:55:00 Notes: (Same as: Flagyl) Avoid alcohol. Start Date: 06/28/14 Stop Date: 06/28/14 Status: CompletedFlagyl 500 mg, 100 mL, Route: IVPB, Drug form: INJ, Q6H, Dosing Weight 67.727, kg, Start date: 06/29/14 2:00:00, Duration: 30 day, Stop date: 07/28/14 20:00:00 Notes: (Same as: Flagyl) Avoid alcohol. Start Date: 06/29/14 Stop Date: 06/29/14 Status: DiscontinuedlamoTRIgine 25 mg oral tablet 25 mg, 1 tab, Route: PO, Drug form: TAB, BID, Dosing Weight 31.08, kg, Start date: 06/29/14 9:00:00,Duration: 30 day, Stop date: 07/28/14 17:00:00 Notes: (Same as:LaMICtal) Start Date: 06/29/14 Stop Date: 06/29/14 Status: Discontinuedlevothyroxine Route: PO, Drug form: TAB, Daily, Dosing Weight 31.08, kg, Start date: 06/29/14 9:00:00, Duration: 30 day, Stop date: 07/28/14 9:00:00 Notes: Take 1 hour before or 2 hours after meal; Enteral feeds may interefere with the absorption ofthis medication. (Same as:Synthroid, Levothroid) Start Date: 06/29/14 Stop Date: 06/29/14 Status: DiscontinuedLibrax oral capsule 1 cap, PO, QID, Stomach Upset, X 30 day, # 60 cap, 0 Refill(s) Start Date: 06/29/14 Stop Date: 07/29/14 Status: Orderedmidodrine 5 mg, 1 tab, Route: PO, Drug form: TAB, BID, Dosing Weight 31.08, kg, Start date : 06/29/14 9:00:00, Duration: 30 day, Stop date: 07/28/14 17:00:00 Notes: (Same as:Proamatine) Start Date: 06/29/14 Stop Date: 06/29/14 Status: Discontinuedmorphine Sulfate 4 mg, 1 mL, Route: IVP, Drug form: INJ, ONCE, Dosing Weight 67.727, kg, Priority : STAT, Start date: 06/28/14 18:44:00, Stop date: 06/28/14 18:44:00 Notes: (Same as:MORPhine Sulfate) Start Date: 06/28/14 Stop Date: 06/28/14 Status: Completedmultivitamin 1 tab, Route: PO, Drug Form: TAB, Dosing Weight 31.08, kg, Daily, Start date: 9:00:00, Duration: 30 day, Stop date: 07/28/14 9:00:00 Notes: Give with food.(Same As: Glutofac)mult Start Date: 06/29/14 Stop Date: 06/29/14 Status: DiscontinuedPhenergan 25 mg, 50 mL, Route: IVPB, Drug form: SOLN, Q8H, Dosing Weight 31.08, kg, PRN Nausea & Vomiting,Start date: 06/29/14 9:14:00, Duration: 30 day, Stop date : 07/29/14 9:13:00 Start Date: 06/29/14 Stop Date: 06/29/14 Status: DiscontinuedPhenergan 12.5 mg oral tablet 12.5 mg=1 tab, PO, Q6H, Nausea & Vomiting, # 30 tab, 0 Refill(s) Start Date: 06/29/14 Stop Date: 07/29/14 Status: Orderedpotassium chloride 20 mEq/15 mL oral liquid 20 mEq, 15 mL, Route: PO, Drug form: LIQ, Q2H, Dosing Weight 31.08, kg, Priority : NOW, Start date: 06/29/14 9:14:00, Duration: 2 doses or times, Stop date: 11:15:00 Notes: (Same as: Potassium Chloride) Start Date: 06/29/14 Stop Date: 06/29/14 Status: CompletedReglan 10 mg, 2 mL, Route: IVP, Drug form: INJ, ONCE, Dosing Weight 67.727, kg, Priority: STAT, Start date:06/28/14 18:44:00, Stop date: 06/28/14 18:44:00 Notes: (Same as: Reglan) Start Date: 06/28/14 Stop Date: 06/28/14 Status: CompletedSaline Flush 0.9% 10 mL, Route: IVP, Drug Form: INJ, Dosing Weight 67.727, kg, PRN, PRN Line Flush , Start date: 06/28/14 15:46:00, Duration: 30 day, Stop date: 07/28/14 15:45:00 Notes: (Same as: BD Posiflush) Start Date: 06/28/14 Stop Date: 06/29/14 Status: DiscontinuedSEROquel 600 mg, PO, Bedtime, 0 Refill(s) Start Date: 06/28/14 Status: OrderedSEROquel 600 mg, 6 tab, Route: PO, Drug form: TAB, Bedtime, Dosing Weight 31.08, kg, Start date: 06/29/14 21:00:00, Duration: 30 day, Stop date: 07/28/14 21:00:00 Notes: (Same as: SEROquel) Start Date: 06/29/14 Stop Date: 06/29/14 Status: CanceledSodium Chloride 0.9% (Bolus) IV 1,000 mL, 1000 ml/hr, Infuse Over: 1 hr, Route: IV, 1,000, Drug form: INJ, ONCE , Priority: STAT, Dosing Weight 67.727 kg, Start date: 06/28/14 18:46:00, Duration: 1 doses or times, Stop date: 06/28/14 18:46:00 Start Date: 06/28/14 Stop Date: 06/29/14 Status: CompletedSodium Chloride 0.9% (Bolus) IV 1,000 mL, 1000 ml/hr, Infuse Over: 1 hr, Route: IV, 1,000, Drug form: INJ, ONCE , Priority: STAT, Dosing Weight 67.727 kg, Start date: 06/28/14 15:46:00, Duration: 1 doses or times, Stop date: 06/28/14 15:46:00 Start Date: 06/28/14 Stop Date: 06/28/14 Status: Completedtizanidine 4 mg, 1 tab, Route: PO, Drug form: TAB, Q8H, Dosing Weight 31.08, kg, PRN as needed for muscle spasm, Start date: 06/28/14 22:40:00, Duration: 30 day, Stop date: 07/28/14 22:39:00 Notes: (Same As: Zanaflex) Start Date: 06/28/14 Stop Date: 06/29/14 Status: DiscontinuedVitamin C 500 mg, 1 tab, Route: PO, Drug form: TAB, Daily, Dosing Weight 31.08, kg, Start date: 06/29/14 9:00:00, Duration: 30 day, Stop date: 07/28/14 9:00:00 Notes: (Same as: Vitamin C) Start Date: 06/29/14 Stop Date: 06/29/14 Status: DiscontinuedVivelle Dot 0.1mg/24 hr transdermal patch Vivelle Dot 0.1mg/24 hr transdermal patch, 1 patch, Drug form: MISC, Route: TOP , QFri, 06/30/14 9:00:00, Duration: 30 day, Stop date: 07/28/14 9:00:00 Start Date: 06/30/14 Stop Date: 06/29/14 Status: CanceledVivelle-Dot 1 patch, Route: TOP, Drug Form: ERFILM, Dosing Weight 31.08, kg, Daily, Start date: 06/29/14 9:00:00, Duration: 30 day, Stop date: 07/28/14 9:00:00 Start Date: 06/29/14 Stop Date: 06/29/14 Status: DiscontinuedVyvanse 80 mg, Route: PO, Dosing Weight 31.08, kg, QAM, Start date: 06/29/14 9:00:00, Duration: 30 day, Stopdate: 07/28/14 9:00:00 Start Date: 06/29/14 Stop Date: 06/29/14 Status: DiscontinuedVyvanse 80 mg=, PO, QAM, 0 Refill(s) Start Date: 06/28/14 Status: OrderedVyvanse 80mg tab Vyvanse 80mg tab, 80 mg, 1 tab, Drug form: MISC, Route: PO, QAM, 06/29/14 9:00: 00, Duration: 30 day,Stop date: 07/28/14 9:00:00 Start Date: 06/29/14 Stop Date: 06/29/14 Status: DiscontinuedXanax 0.5 mg, PO, TID, as needed for anxiety, 0 Refill(s) Start Date: 06/28/14 Status: OrderedXanax 0.5 mg oral tablet 0.5 mg, 1 tab, Route: PO, Drug form: TAB, TID, Dosing Weight 31.08, kg, PRN as needed for anxiety, Start date: 06/28/14 22:38:00, Duration: 30 day, Stop date: 07/28/14 22:37:00 Notes: With food or milk(Same as: Xanax) Start Date: 06/28/14 Stop Date: 06/29/14 Status: Discontinuedzolpidem 12.5 mg, Route: PO, Bedtime, Dosing Weight 31.08, kg, Start date: 06/29/14 21:00 :00, Duration: 30 day, Stop date: 07/28/14 21:00:00 Start Date: 06/29/14 Stop Date: 06/28/14 Status: Deleted Results ELECTROLYTES Most recent to oldest [Reference Range]: 1 2 Sodium Lvl [135-145 mEq/L] 142 mEq/L 137 mEq/L (06/29/14 4:36 AM) (06/28/14 3:45 PM) Potassium Lvl [3.5-5.1 mEq/L] 3.1 mEq/L 4.4 mEq/L *LOW* (06/28/14 3:45 PM) (06/29/14 4:36 AM) Chloride Lvl [95-109 mEq/L] 111 mEq/L 110 mEq/L *HI* *HI* (06/29/14 4:36 AM) (06/28/14 3:45 PM) CO2 [24-32 mEq/L] 22 mEq/L 20 mEq/L *LOW* *LOW* (06/29/14 4:36 AM) (06/28/14 3:45 PM) AGAP [10.0-20.0 mEq/L] 12.1 mEq/L 11.4 mEq/L (06/29/14 4:36 AM) (06/28/14 3:45 PM) CHEM PANEL Most recent to oldest [Reference Range]: 1 2 Creatinine Lvl [0.5-1.4 mg/dL] 0.9 mg/dL 0.8 mg/dL (06/29/14 4:36 AM) (06/28/14 3:45 PM) eGFR 84 mL/min/1.73m2 1 96 mL/min/1.73m2 2 *NA* *NA* (06/29/14 4:36 AM) (06/28/14 3:45 PM) BUN [7-22 mg/dL] 4 mg/dL 7 mg/dL *LOW* (06/28/14 3:45 PM) (06/29/14 4:36 AM) B/C Ratio [6-25] 9 (06/28/14 3:45 PM) Glucose Lvl [70-99 mg/dL] 111 mg/dL 3 89 mg/dL 4 *HI* (06/28/14 3:45 PM) (06/29/14 4:36 AM) Total Protein [6.4-8.4 g/dL] 7.6 g/dL (06/28/14 3:45 PM) Albumin Lvl [3.5-5.0 g/dL] 4.0 g/dL (06/28/14 3:45 PM) Globulin [2.0-4.0 g/dL] 3.6 g/dL (06/28/14 3:45 PM) A/G Ratio [0.7-1.6] 1.1 (06/28/14 3:45 PM) Calcium Lvl [8.5-10.5 mg/dL] 7.9 mg/dL 8.8 mg/dL *LOW* (06/28/14 3:45 PM) (06/29/14 4:36 AM) ALT [0-65 unit/L] 20 unit/L (06/28/14 3:45 PM) AST [0-37 unit/L] 25 unit/L (06/28/14 3:45 PM) Alk Phos [39-136 unit/L] 90 unit/L (06/28/14 3:45 PM) Bili Total [0.2-1.3 mg/dL] 0.3 mg/dL (06/28/14 3:45 PM) Amylase Lvl [25-115 unit/L] 32 unit/L (06/28/14 3:45 PM) Lipase Lvl [73-393 unit/L] 70 unit/L *LOW* (06/28/14 3:45 PM) 1Result Comment: The eGFR is calculated [...] eGFR should be multiplied by the estimated BMI.2Result Comment: The eGFR is calculated using the CKD-EPI formula. In most young, healthy individualsthe eGFR will be >90 mL/ min/1.73m2. The [...] eGFR should be multiplied by the estimated BMI.3Interpretive Data: Adult reference range values reflect the clinical guidelines of the [place] [employer].4Interpretive Data: Adult reference range values reflect the clinical guidelines of the [place] [employer].ENDOCRINOLOGY Most recent to oldest [Reference Range]: 1 2 S Preg [Negative] Negative *NA* (06/28/14 3:45 PM) URINE AND STOOL Most recent to oldest [Reference Range]: 1 2 UA Turbidity [Clear] Slight *ABN* (06/28/14 6:05 PM) UA Color [Yellow] Yellow *NA* (06/28/14 6:05 PM) UA pH [5.0-8.0] 6.0 (06/28/14 6:05 PM) UA Spec Grav [<=1.030] 1.016 (06/28/14 6:05 PM) UA Glucose [Negative mg/dL] Negative mg/dL *NA* (06/28/14 6:05 PM) UA Blood [Negative] Negative (06/28/14 6:05 PM) UA Ketones [Negative mg/dL] Negative mg/dL *NA* (06/28/14 6:05 PM) UA Protein [Negative mg/dL] 30 mg/dL *ABN* (06/28/14 6:05 PM) UA Urobilinogen [0.1-1.0 mg/dL] <=1.0 mg/dL *NA* (06/28/14 6:05 PM) UA Bili [Negative] Negative *NA* (06/28/14 6:05 PM) UA Leuk Est [Negative] Large *ABN* (06/28/14 6:05 PM) UA Nitrite [Negative] Negative (06/28/14 6:05 PM) UA WBC [0-5 /HPF] 22 /HPF *HI* (06/28/14 6:05 PM) UA RBC [0-2 /HPF] 3 /HPF *HI* (06/28/14 6:05 PM) UA Bacteria [None Seen /HPF] Many /HPF *ABN* (06/28/14 6:05 PM) UA Sq Epi [Few /LPF] Many /LPF *ABN* (06/28/14 6:05 PM) UA Mucus [None Seen /LPF] Many /LPF *ABN* (06/28/14 6:05 PM) UA Trans Epi [<=0] OCC *NA* (06/28/14 6:05 PM) HEMATOLOGY Most recent to oldest [Reference Range]: 1 2 WBC [3.7-10.4 K/CMM] 7.4 K/CMM 10.6 K/CMM (06/29/14 4:36 AM) *HI* (06/28/14 6:00 PM) RBC [4.20-5.40 M/CMM] 3.51 M/CMM 4.41 M/CMM *LOW* (06/28/14 6:00 PM) (06/29/14 4:36 AM) Hgb [12.0-16.0 g/dL] 10.4 g/dL 13.8 g/dL *LOW* (06/28/14 6:00 PM) (06/29/14 4:36 AM) Hct [36.0-48.0 %] 32.0 % 40.0 % *LOW* (06/28/14 6:00 PM) (06/29/14 4:36 AM) MCV [80.0-98.0 fL] 91.1 fL 90.6 fL (06/29/14 4:36 AM) (06/28/14 6:00 PM) MCH [27.0-31.0 pg] 29.7 pg 31.2 pg (06/29/14 4:36 AM) *HI* (06/28/14 6:00 PM) MCHC [32.0-36.0 g/dL] 32.6 g/dL 34.4 g/dL (06/29/14 4:36 AM) (06/28/14 6:00 PM) RDW [11.5-14.5 %] 12.6 % 12.9 % (06/29/14 4:36 AM) (06/28/14 6:00 PM) Platelet [133-450 K/CMM] 267 K/CMM 338 K/CMM (06/29/14 4:36 AM) (06/28/14 6:00 PM) MPV [7.4-10.4 fL] 8.9 fL 8.2 fL (06/29/14 4:36 AM) (06/28/14 6:00 PM) Segs [45.0-75.0 %] 50.2 % 52.6 % (06/29/14 4:36 AM) (06/28/14 6:00 PM) Lymphocytes [20.0-40.0 %] 39.7 % 37.5 % (06/29/14 4:36 AM) (06/28/14 6:00 PM) Monocytes [2.0-12.0 %] 8.3 % 8.3 % (06/29/14 4:36 AM) (06/28/14 6:00 PM) Eosinophils [0.0-4.0 %] 1.4 % 1.2 % (06/29/14 4:36 AM) (06/28/14 6:00 PM) Basophils [0.0-1.0 %] 0.4 % 0.4 % (06/29/14 4:36 AM) (06/28/14 6:00 PM) Segs-Bands # [1.5-8.1 K/CMM] 3.7 K/CMM 5.6 K/CMM (06/29/14 4:36 AM) (06/28/14 6:00 PM) Lymphocytes # [1.0-5.5 K/CMM] 2.9 K/CMM 4.0 K/CMM (06/29/14 4:36 AM) (06/28/14 6:00 PM) Monocytes # [0.0-0.8 K/CMM] 0.6 K/CMM 0.9 K/CMM (06/29/14 4:36 AM) *HI* (06/28/14 6:00 PM) Eosinophils # [0.0-0.5 K/CMM] 0.1 K/CMM 0.1 K/CMM (06/29/14 4:36 AM) (06/28/14 6:00 PM) Basophils # [0.0-0.2 K/CMM] 0.0 K/CMM (06/29/14 4:36 AM) PT [12.0-14.7 seconds] 14.1 seconds (06/28/14 6:00 PM) INR [0.85-1.17] 1.08 5 (06/28/14 6:00 PM) PTT [22.9-35.8 seconds] 32.0 seconds 6 (06/28/14 6:00 PM) 5Interpretive Data: RECOMMENDED RANGES FOR PROTIME INR: 2.0-3.0 for most medical and surgical thromboembolic states. 2.5-3.5 for artificial heart valves and recurrent embolism. INR SHOULD BE USED ONLY FOR PATIENTS ON STABLE ANTICOAGULANT THERAPY.6Interpretive Data: Heparin Therapeutic Range: 57 - 92 Seconds Immunizations Vaccine Date Refusal Reason influenza virus vaccine, inactivated 05/03/10 pneumococcal 23-valent vaccine 03/11/08 Procedures Procedure Date Related Diagnosis Body Site Back fusion Cholecystectomy Hand Hand repair1 Hysterectomy Hysterectomy Nerve block Shoulder Thyroidectomy2 1thumb joint [id number] Social History Social History Type Response Substance [...]
--- OUTSIDE RECORDS SUMMARY | 2017-11-26 11:33 | XMS REPORT | Summary of Care ---
:1980 Author Organization [facility] Address [address] [place], [place] [address]- Encounter HQ Ronald(DAKOTAH) [id number] Date(s): 04/14/15 - 04/14/15 [facility] [address] [place] [address]- [phone] Discharge Diagnosis: Knee sprain Discharge Disposition: Home Attending Physician: Letitia Pritchett MD Vital Signs Most recent to oldest [Reference Range]: 1 Height 170.18 cm (04/14/15 3:10 PM) Temperature Oral [96.4-99.1 DegF] 98.7 DegF (04/14/15 3:10 PM) Blood Pressure [90-140/60-90 mmHg] 129/79 mmHg (04/14/15 3:10 PM) Respiratory Rate [14-20 BRMIN] 18 BRMIN (04/14/15 3:10 PM) Peripheral Pulse Rate [60-100 bpm] 88 bpm (04/14/15 3:10 PM) Weight 75.318 kg (04/14/15 3:10 PM) Body Mass Index 26.01 m2 (04/14/15 3:10 PM) Problem List Condition Effective Dates Status Health Status Informant Anemia(Confirmed)1 Resolved Anxiety(Confirmed) Active Bipolar(Confirmed) Active Chronic back pain(Confirmed) Active Constipation(Confirmed) Active Depression(Confirmed) Active Fracture(Confirmed)2 Resolved Gallbladder disease(Confirmed) 2009 Active Hypotension(Confirmed) Resolved Hypothyroid(Confirmed) Active Hysterectomy(Confirmed) Active Migraine(Confirmed) Active MVP - Mitral valve Resolved prolapse(Confirmed) Nausea and vomiting(Confirmed) < 05/16/10 Resolved Ovarian cyst(Confirmed) 02/11/11 Active Pain, lower right quad.(Confirmed) 02/28/11 Active Panic attack(Confirmed) Active Reflex sympathetic dystrophy of 1999 Active upper extremity(Confirmed) RSD - Reflex sympathetic Resolved dystrophy(Confirmed) Seizure(Confirmed) Resolved Seizures(Confirmed) Active Shoulder injury(Confirmed) Resolved Syncope(Confirmed) Active Vasovagal attack(Confirmed) Active Vasovagal syncope(Confirmed) Active 1only when [id number] fx x 8 Allergies, Adverse Reactions, Alerts Substance Reaction Severity Status aspirin ANXIETY/INCREASED HEART RATE Active Food Nuts Active Food Soybean Active naproxen Aspirin Active ANXIETY Other Food Allergy Active Talwin HEAD ACHE AND N/V Active Zofran Active Medications [place] 10/325 oral tablet 1 tab, Route: PO, Drug Form: TAB, Dosing Weight 75.318, kg, ONCE, STAT, Start date: 04/14/15 15:20:00, Stop date: 04/14/15 15:20:00 Start Date: 04/14/15 Stop Date: 04/14/15 Status: CompletedPhenergan 25 mg, 1 tab, Route: PO, Drug form: TAB, ONCE, Dosing Weight 75.318, kg, Priority: STAT, Start date:04/14/15 15:20:00, Stop date: 04/14/15 15:20:00 Notes: (Same as: Phenergan) Start Date: 04/14/15 Stop Date: 04/14/15 Status: Completedtramadol 50 mg oral tablet 50 mg=1 tab, PO, Q4H, PRN Pain, X 3 day, # 18 tab, 0 Refill(s) Start Date: 04/14/15 Stop Date: 04/17/15 Status: Ordered Results No data available for this section Immunizations Vaccine Date Refusal Reason influenza virus vaccine, inactivated 05/03/10 pneumococcal 23-valent vaccine 03/11/08 Procedures Procedure Date Related Diagnosis Body Site Back fusion Cholecystectomy Hand Hand repair1 Hysterectomy Hysterectomy Nerve block Shoulder Thyroidectomy2 1thumb joint [id number] Social History Social History Type Response Substance [...]
--- OUTSIDE RECORDS SUMMARY | 2017-11-26 11:33 | XMS REPORT | Summary of Care ---
:1980 Author Organization [facility] Address [address] [place] [address]- Encounter HQ Ronald(FIN) [id number] Date(s): 04/21/15 - 04/21/15 [facility] Outpatient [address] [id number]- [phone] Discharge Disposition: Home Attending Physician: Arley Marr MD Vital Signs No data available for this section Problem List Condition Effective Dates Status Health [...] attack(Confirmed) Active Vasovagal syncope(Confirmed) Active 1only when [id number] fx x 8 Allergies, Adverse Reactions, Alerts [...] Hysterectomy Nerve block Shoulder Thyroidectomy2 1thumb joint [id number] Social History Social History Type Response Substance [...]
--- OUTSIDE RECORDS SUMMARY | 2017-11-26 11:33 | XMS REPORT | Summary of Care ---
:1980 Author Organization [facility] Address [address] [place], [place] [address]- Encounter HQ Ronald(DAKOTAH) [id number] Date(s): 06/04/15 - 06/04/15 [facility] [address] [place] [address]- [phone] Discharge Disposition: Against Medical Advise Attending Physician: Letitia Pritchett MD Vital Signs Most recent to oldest [Reference Range]: 1 Height 170.18 cm (06/04/15 7:11 AM) Temperature Oral [96.4-99.1 DegF] 97.9 DegF (06/04/15 7:11 AM) Blood Pressure [90-140/60-90 mmHg] 116/65 mmHg (06/04/15 7:11 AM) Respiratory Rate [14-20 BRMIN] 18 BRMIN (06/04/15 7:11 AM) Peripheral Pulse Rate [60-100 bpm] 87 bpm (06/04/15 7:11 AM) Weight 74.091 kg (06/04/15 7:11 AM) Body Mass Index 25.58 m2 (06/04/15 7:11 AM) Problem List Condition Effective Dates Status [...] attack(Confirmed) Active Vasovagal syncope(Confirmed) Active 1only when [id number] fx x 8 Allergies, Adverse Reactions, Alerts Substance Reaction Severity Status aspirin ANXIETY/INCREASED HEART RATE Active Food Nuts Active Food Soybean Active naproxen Aspirin Active ANXIETY Other Food Allergy Active Talwin HEAD ACHE AND N/V Active Zofran Active Medications Tylenol 975 mg, Route: PO, Drug form: TAB, ONCE, Dosing Weight 74.091, kg, Priority: STAT, Start date: 06/04/15 8:41:00, Stop date: 06/04/15 8:41:00 Start Date: 06/04/15 Stop Date: 06/04/15 Status: CompletedUltram 50 mg oral tablet 50 mg, Route: PO, Drug form: TAB, ONCE, Dosing Weight 74.091, kg, Priority: STAT , Start date: 06/04/15 7:53:00, Stop date: 06/04/15 7:53:00 Start Date: 06/04/15 Stop Date: 06/04/15 Status: Completed Results No data available for this section Immunizations Vaccine Date Refusal Reason influenza virus vaccine, inactivated 05/03/10 pneumococcal 23-valent vaccine 03/11/08 Procedures Procedure Date Related Diagnosis Body Site Back fusion Cholecystectomy Hand Hand repair1 Hysterectomy Hysterectomy Nerve block Shoulder Thyroidectomy2 1thumb joint [id number] Social History Social History Type Response Substance Abuse Use: None.1 Alcohol Past, Type Wine. Frequency: 1-2 times per month. Started age 20 Years. Previous treatment: None. Alcohol use interferes with work or home: No. Drinks more than intended: No. Others hurt by drinking: No. Ready to change: No. Household alcohol concerns: No.2 Smoking Status Never smoker; Type: Cigarettes; Previous treatment: None; Ready to change: No; Concerns about tobacco use in household: No; Exposure to Tobacco Smoke None; Cigarette Smoking Last 365 Days No; Reg Smoking Cessation Counseling No [id number] Assessment and Plan No data available for this section
--- OUTSIDE RECORDS SUMMARY | 2017-11-26 11:33 | XMS REPORT | Summary of Care ---
:1980 Author Organization [facility] Outpatient Imaging - [facility] Address [address] [place] [id number]- Encounter HQ Mick_sarbjit(FIN) [id number] Date(s): 05/16/15 - 05/16/15 [facility] Outpatient Imaging - [address] [place] [address]- Discharge Disposition: Home Attending Physician: Arley Marr [...] attack(Confirmed) Active Vasovagal syncope(Confirmed) Active 1only when [id number] fx x 8 Allergies, Adverse Reactions, Alerts [...] Hysterectomy Nerve block Shoulder Thyroidectomy2 1thumb joint [id number] Social History Social History Type Response Substance [...]
--- OUTSIDE RECORDS SUMMARY | 2017-11-26 11:33 | XMS REPORT | Summary of Care ---
:1980 Author Organization [facility] Address [address] [place] [address]- Encounter HQ Ronald(DAKOTAH) [id number] Date(s): 01/04/15 - 01/04/[address] [address]- Discharge Diagnosis: Grand mal seizure Discharge Disposition: Home Attending Physician: Teena Rosen MD Vital Signs Most recent to oldest [Reference Range]: 1 2 3 Height 170.18 cm (01/04/15 8:22 AM) Most recent to oldest [Reference Range]: 1 2 3 Temperature Oral [96.4-99.1 DegF] 78.1 DegF *LOW* (01/04/15 8:22 AM) Most recent to oldest 1 2 3 [Reference Range]: Blood Pressure [90-140/60-90 116/59 mmHg 131/78 mmHg 140/69 mmHg mmHg] (01/04/15 11:48 AM) (01/04/15 11:18 AM) (01/04/15 9:12 AM) Most recent to oldest 1 2 3 [Reference Range]: Respiratory Rate [14-20 18 BRMIN 18 BRMIN 18 BRMIN BRMIN] (01/04/15 11:48 AM) (01/04/15 11:18 AM) (01/04/15 9:12 AM) Most recent to oldest [Reference Range]: 1 2 3 Peripheral Pulse Rate [60-100 bpm] 80 bpm (01/04/15 8:22 AM) Most recent to oldest [Reference Range]: 1 2 3 Weight 72.727 kg (01/04/15 8:22 AM) Most recent to oldest [Reference Range]: 1 2 3 Body Mass Index 25.11 m2 (01/04/15 8:22 AM) Problem List Condition Effective Dates Status [...] attack(Confirmed) Active Vasovagal syncope(Confirmed) Active 1only when [id number] fx x 8 Allergies, Adverse Reactions, Alerts Substance Reaction Severity Status aspirin ANXIETY/INCREASED HEART RATE Active Food Nuts Active Food Soybean Active naproxen Aspirin Active ANXIETY Other Food Allergy Active Talwin HEAD ACHE AND N/V Active Zofran Active Medications LaMICtal 25 mg, 1 tab, Route: PO, Drug form: TAB, ONCE, Dosing Weight 72.727, kg, Start date: 01/04/15 9:37:00, Stop date: 01/04/15 9:37:00 Notes: (Same as:LaMICtal) Start Date: 01/04/15 Stop Date: 01/04/15 Status: CompletedLaMICtal 25 mg oral tablet 25 mg=1 tab, PO, BID, # 60 tab, 0 Refill(s) Start Date: 01/04/15 Status: OrderedNS (Bolus) IV 500 mL, 500 ml/hr, Infuse Over: 1 hr, Route: IV, 500, Drug form: INJ, ONCE, Priority: STAT, Dosing Weight 72.727 kg, Start date: 01/04/15 9:39:00, Duration : 1 doses or times, Stop date: 01/04/15 9:39:00 Start Date: 01/04/15 Stop Date: 01/04/15 Status: CompletedPhenergan 6.25 mg, 0.5 tab, Route: PO, Drug form: TAB, ONCE, Dosing Weight 72.727, kg, Priority: STAT, Start date: 01/04/15 9:39:00, Stop date: 01/04/15 9:39:00 Notes: (Same as: Phenergan) Start Date: 01/04/15 Stop Date: 01/04/15 Status: CompletedSaline Flush 0.9% 10 mL, Route: IVP, Drug Form: INJ, Dosing Weight 72.727, kg, PRN, PRN Line Flush , Start date: 01/04/15 9:37:00, Duration: 30 day, Stop date: 02/03/15 9:36:00 Notes: (Same as: BD Posiflush) Start Date: 01/04/15 Stop Date: 01/04/15 Status: DiscontinuedTopamax 100 mg, 1 tab, Route: PO, Drug form: TAB, ONCE, Dosing Weight 72.727, kg, Start date: 01/04/15 10:54:00, Stop date: 01/04/15 10:54:00 Notes: (Same As: Topamax)"Do Not Crush" Start Date: 01/04/15 Stop Date: 01/04/15 Status: CompletedTopamax 100 mg oral tablet 100 mg=1 tab, PO, BID, # 60 tab, 0 Refill(s) Start Date: 01/04/15 Status: Ordered Results ELECTROLYTES Most recent to oldest [Reference Range]: 1 Sodium Lvl [135-145 mEq/L] 140 mEq/L (01/04/15 9:50 AM) Potassium Lvl [3.5-5.1 mEq/L] 3.9 mEq/L (01/04/15 9:50 AM) Chloride Lvl [95-109 mEq/L] 106 mEq/L (01/04/15 9:50 AM) CO2 [24-32 mEq/L] 32 mEq/L (01/04/15 9:50 AM) AGAP [10.0-20.0 mEq/L] 5.9 mEq/L *LOW* (01/04/15 9:50 AM) CHEM PANEL Most recent to oldest [Reference Range]: 1 Creatinine Lvl [0.5-1.4 mg/dL] 0.8 mg/dL (01/04/15 9:50 AM) eGFR 96 mL/min/1.73m2 1 *NA* (01/04/15 9:50 AM) BUN [7-22 mg/dL] 6 mg/dL *LOW* (01/04/15 9:50 AM) Glucose Lvl [70-99 mg/dL] 82 mg/dL (01/04/15 9:50 AM) Calcium Lvl [8.5-10.5 mg/dL] 8.8 mg/dL (01/04/15 9:50 AM) 1Result Comment: The eGFR is calculated [...] eGFR should be multiplied by the estimated BMI.THYROID PANEL Most recent to oldest [Reference Range]: 1 TSH [0.360-3.740 uIU/mL] 0.704 uIU/mL (01/04/15 9:50 AM) HEMATOLOGY Most recent to oldest [Reference Range]: 1 WBC [3.7-10.4 K/CMM] 8.8 K/CMM (01/04/15 9:50 AM) RBC [4.20-5.40 M/CMM] 4.47 M/CMM (01/04/15 9:50 AM) Hgb [12.0-16.0 g/dL] 13.4 g/dL (01/04/15 9:50 AM) Hct [36.0-48.0 %] 40.4 % (01/04/15 9:50 AM) MCV [80.0-98.0 fL] 90.5 fL (01/04/15 9:50 AM) MCH [27.0-31.0 pg] 29.9 pg (01/04/15 9:50 AM) MCHC [32.0-36.0 g/dL] 33.0 g/dL (01/04/15 9:50 AM) RDW [11.5-14.5 %] 13.3 % (01/04/15 9:50 AM) Platelet [133-450 K/CMM] 296 K/CMM (01/04/15 9:50 AM) MPV [7.4-10.4 fL] 8.8 fL (01/04/15 9:50 AM) Segs [45.0-75.0 %] 69.5 % (01/04/15 9:50 AM) Lymphocytes [20.0-40.0 %] 20.6 % (01/04/15 9:50 AM) Monocytes [2.0-12.0 %] 8.4 % (01/04/15 9:50 AM) Eosinophils [0.0-4.0 %] 1.2 % (01/04/15 9:50 AM) Basophils [0.0-1.0 %] 0.3 % (01/04/15 9:50 AM) Segs-Bands # [1.5-8.1 K/CMM] 6.1 K/CMM (01/04/15 9:50 AM) Lymphocytes # [1.0-5.5 K/CMM] 1.8 K/CMM (01/04/15 9:50 AM) Monocytes # [0.0-0.8 K/CMM] 0.7 K/CMM (01/04/15 9:50 AM) Eosinophils # [0.0-0.5 K/CMM] 0.1 K/CMM (01/04/15 9:50 AM) Basophils # [0.0-0.2 K/CMM] 0.0 K/CMM (01/04/15 9:50 AM) Immunizations Vaccine Date Refusal Reason influenza virus vaccine, inactivated 05/03/10 pneumococcal 23-valent vaccine 03/11/08 Procedures Procedure Date Related Diagnosis Body Site Back fusion Cholecystectomy Hand Hand repair1 Hysterectomy Hysterectomy Nerve block Shoulder Thyroidectomy2 1thumb joint [id number] Social History Social History Type Response Substance [...]
--- OUTSIDE RECORDS SUMMARY | 2017-11-26 11:33 | XMS REPORT | Summary of Care ---
:1980 Author Organization [facility] Address [address] [place] [address]- Encounter HQ Ronald(DAKOTAH) [id number] Date(s): 05/24/15 - 05/24/[address] [address]- Discharge Diagnosis: Sprain of anterior cruciate ligament of right knee Discharge Disposition: Home Attending Physician: Moni Funk MD Vital Signs Most recent to oldest [Reference Range]: 1 2 Height 170.18 cm (05/24/15 7:50 PM) Temperature Oral [96.4-99.1 DegF] 98.2 DegF 98.0 DegF (05/24/15 11:28 PM) (05/24/15 7:50 PM) Blood Pressure [90-140/60-90 mmHg] 114/67 mmHg 99/48 mmHg (05/24/15 11:28 PM) (05/24/15 7:50 PM) Respiratory Rate [14-20 BRMIN] 20 BRMIN 18 BRMIN (05/24/15 11:28 PM) (05/24/15 7:50 PM) Peripheral Pulse Rate [60-100 bpm] 98 bpm 94 bpm (05/24/15 11:28 PM) (05/24/15 7:50 PM) Weight 74.091 kg (05/24/15 7:50 PM) Body Mass Index 25.58 m2 (05/24/15 7:50 PM) Problem List Condition Effective Dates Status [...] attack(Confirmed) Active Vasovagal syncope(Confirmed) Active 1only when [id number] fx x 8 Allergies, Adverse Reactions, Alerts Substance Reaction Severity Status aspirin ANXIETY/INCREASED HEART RATE Active Food Nuts Active Food Soybean Active naproxen Aspirin Active ANXIETY Other Food Allergy Active Talwin HEAD ACHE AND N/V Active Zofran Active Medications hydromorphone 1 mg, Route: IM, ONCE, Dosing Weight 74.091, kg, Priority: STAT, Start date: 21:25:00, Stopdate: 05/24/15 21:25:00 Start Date: 05/24/15 Stop Date: 05/24/15 Status: CompletedSaline Flush 0.9% 10 mL, Route: IVP, Drug Form: INJ, Dosing Weight 74.091, kg, PRN, PRN Line Flush , Start date: 05/24/15 19:57:00, Duration: 30 day, Stop date: 06/23/15 20:56:00 Notes: (Same as: BD Posiflush) Start Date: 05/24/15 Stop Date: 05/25/15 Status: DiscontinuedTylenol with Codeine #4 oral tablet 1 - 2 tab, PO, Q6H, PRN Pain, X 4 day, # 32 tab, 0 Refill(s) Start Date: 05/24/15 Stop Date: 05/28/15 Status: Ordered Results ELECTROLYTES Most recent to oldest [Reference Range]: 1 Sodium Lvl [135-145 mEq/L] 142 mEq/L (05/24/15 8:25 PM) Potassium Lvl [3.5-5.1 mEq/L] 4.1 mEq/L (05/24/15 8:25 PM) Chloride Lvl [95-109 mEq/L] 106 mEq/L (05/24/15 8:25 PM) CO2 [24-32 mEq/L] 30 mEq/L (05/24/15 8:25 PM) AGAP [10.0-20.0 mEq/L] 10.1 mEq/L (05/24/15 8:25 PM) CHEM PANEL Most recent to oldest [Reference Range]: 1 Creatinine Lvl [0.50-1.40 mg/dL] 0.76 mg/dL (05/24/15 8:25 PM) eGFR 102 mL/min/1.73m2 1 *NA* (05/24/15 8:25 PM) BUN [7-22 mg/dL] 7 mg/dL (05/24/15 8:25 PM) Glucose Lvl [70-99 mg/dL] 88 mg/dL (05/24/15 8:25 PM) Calcium Lvl [8.5-10.5 mg/dL] 8.7 mg/dL (05/24/15 8:25 PM) 1Result Comment: The eGFR is calculated [...] eGFR should be multiplied by the estimated BMI.ENDOCRINOLOGY Most recent to oldest [Reference Range]: 1 S Preg [Negative] Negative *NA* (05/24/15 8:25 PM) HEMATOLOGY Most recent to oldest [Reference Range]: 1 WBC [3.7-10.4 K/CMM] 9.9 K/CMM (05/24/15 8:25 PM) RBC [4.20-5.40 M/CMM] 3.97 M/CMM *LOW* (05/24/15 8:25 PM) Hgb [12.0-16.0 g/dL] 11.6 g/dL *LOW* (05/24/15 8:25 PM) Hct [36.0-48.0 %] 34.6 % *LOW* (05/24/15 8:25 PM) MCV [80.0-98.0 fL] 87.1 fL (05/24/15 8:25 PM) MCH [27.0-31.0 pg] 29.1 pg (05/24/15 8:25 PM) MCHC [32.0-36.0 g/dL] 33.5 g/dL (05/24/15 8:25 PM) RDW [11.5-14.5 %] 12.4 % (05/24/15 8:25 PM) Platelet [133-450 K/CMM] 310 K/CMM (05/24/15 8:25 PM) MPV [7.4-10.4 fL] 8.4 fL (05/24/15 8:25 PM) Segs [45.0-75.0 %] 50.9 % (05/24/15 8:25 PM) Lymphocytes [20.0-40.0 %] 39.1 % (05/24/15 8:25 PM) Monocytes [2.0-12.0 %] 8.2 % (05/24/15 8:25 PM) Eosinophils [0.0-4.0 %] 1.5 % (05/24/15 8:25 PM) Basophils [0.0-1.0 %] 0.3 % (05/24/15 8:25 PM) Segs-Bands # [1.5-8.1 K/CMM] 5.1 K/CMM (05/24/15 8:25 PM) Lymphocytes # [1.0-5.5 K/CMM] 3.9 K/CMM (05/24/15 8:25 PM) Monocytes # [0.0-0.8 K/CMM] 0.8 K/CMM (05/24/15 8:25 PM) Eosinophils # [0.0-0.5 K/CMM] 0.1 K/CMM (05/24/15 8:25 PM) Immunizations Vaccine Date Refusal Reason influenza virus vaccine, inactivated 05/03/10 pneumococcal 23-valent vaccine 12/6/08 Procedures Procedure Date Related Diagnosis Body Site Back fusion Cholecystectomy Hand Hand repair1 Hysterectomy Hysterectomy Nerve block Shoulder Thyroidectomy2 1thumb joint [id number] Social History Social History Type Response Substance [...]
--- OUTSIDE RECORDS SUMMARY | 2017-11-26 11:33 | XMS REPORT | Summary of Care ---
:1980 Author Organization [facility] Address [address] [place], [place] [address]- Encounter HQ Ronald(DAKOTAH) [id number] Date(s): 04/13/15 - 04/13/15 [facility] [address] [place] [address]- Discharge Diagnosis: Right knee sprain Discharge Disposition: Home Attending Physician: Salvador Braxton MD Vital Signs Most recent to oldest [Reference Range]: 1 2 Height 170.18 cm (04/13/15 11:43 AM) Blood Pressure [90-140/60-90 mmHg] 133/83 mmHg 123/83 mmHg (04/13/15 12:58 PM) (04/13/15 11:43 AM) Respiratory Rate [14-20 BRMIN] 20 BRMIN 16 BRMIN (04/13/15 12:58 PM) (04/13/15 11:43 AM) Peripheral Pulse Rate [60-100 bpm] 90 bpm 92 bpm (04/13/15 12:58 PM) (04/13/15 11:43 AM) Weight 74.545 kg (04/13/15 11:43 AM) Body Mass Index 25.74 m2 (04/13/15 11:43 AM) Problem List Condition Effective Dates Status [...] attack(Confirmed) Active Vasovagal syncope(Confirmed) Active 1only when [id number] fx x 8 Allergies, Adverse Reactions, Alerts Substance Reaction Severity Status aspirin ANXIETY/INCREASED HEART RATE Active Food Nuts Active Food Soybean Active naproxen Aspirin Active ANXIETY Other Food Allergy Active Talwin HEAD ACHE AND N/V Active Zofran Active Medications acetaminophen-codeine #3 1 tab, Route: PO, Dosing Weight 74.545, kg, ONCE, STAT, Start date: 04/13/15 12: 15:00, Stop date: 04/13/15 12:15:00 Start Date: 04/13/15 Stop Date: 04/13/15 Status: Completedmetoclopramide 10 mg, 1 tab, Route: PO, Drug form: TAB, ONCE, Dosing Weight 74.545, kg, Priority: STAT, Start date:04/13/15 12:50:00, Stop date: 04/13/15 12:50:00 Notes: (Same as: Reglan) Take 30 min before meals Start Date: 04/13/15 Stop Date: 04/13/15 Status: Completedmorphine Sulfate 4 mg, 1 mL, Route: IM, Drug form: INJ, ONCE, Dosing Weight 74.545, kg, Priority : STAT, Start date: 04/13/15 12:49:00, Stop date: 04/13/15 12:49:00 Notes: (Same as:MORPhine Sulfate) Start Date: 04/13/15 Stop Date: 04/13/15 Status: CompletedNorco 5/325 oral tablet 1 tab, Route: PO, Drug Form: TAB, Dosing Weight 72.727, kg, ONCE, STAT, Start date: 04/13/15 11:45:00, Stop date: 04/13/15 11:45:00 Start Date: 04/13/15 Stop Date: 04/13/15 Status: CompletedTylenol with Codeine #3 oral tablet 1 tab, PO, TID, PRN for pain, # 12 tab, 0 Refill(s) Start Date: 04/13/15 Stop Date: 04/20/15 Status: Ordered Results No data available for this section Immunizations Vaccine Date Refusal Reason influenza virus vaccine, inactivated 05/03/10 pneumococcal 23-valent vaccine 03/11/08 Procedures Procedure Date Related Diagnosis Body Site Back fusion Cholecystectomy Hand Hand repair1 Hysterectomy Hysterectomy Nerve block Shoulder Thyroidectomy2 1thumb joint [id number] Social History Social History Type Response Substance [...]
--- OUTSIDE RECORDS SUMMARY | 2017-11-26 11:33 | XMS REPORT | Summary of Care ---
:1980 Author Organization [facility] Address [address] [place] [address]- Encounter HQ Ronald(DKAOTAH) [id number] Date(s): 05/07/15 - 05/08/[address] [address]- Discharge Diagnosis: Pain and swelling of right knee Discharge Diagnosis: Acute knee pain Final: Pain in right knee Discharge Disposition: Home Attending Physician: Carrillo Oliva DO Vital Signs Most recent to oldest [Reference 1 2 3 Range]: Temperature Oral [96.4-99.1 98.5 DegF 98.9 DegF DegF] (05/08/15 12:28 AM) (05/07/15 9:55 PM) Blood Pressure [90-140/60-90 125/70 mmHg 130/77 mmHg 136/66 mmHg mmHg] (05/08/15 12:28 AM) (05/07/15 11:01 PM) (05/07/15 9:55 PM) Respiratory Rate [14-20 BRMIN] 16 BRMIN 20 BRMIN 20 BRMIN (05/08/15 12:28 AM) (05/07/15 11:01 PM) (05/07/15 9:55 PM) Peripheral Pulse Rate [60-100 85 bpm 99 bpm 100 bpm bpm] (05/08/15 12:28 AM) (05/07/15 11:01 PM) (05/07/15 9:55 PM) Weight 72.727 kg (05/07/15 9:55 PM) Problem List Condition Effective Dates Status [...] attack(Confirmed) Active Vasovagal syncope(Confirmed) Active 1only when [id number] fx x 8 Allergies, Adverse Reactions, Alerts Substance Reaction Severity Status aspirin ANXIETY/INCREASED HEART RATE Active Food Nuts Active Food Soybean Active naproxen Aspirin Active ANXIETY Other Food Allergy Active Talwin HEAD ACHE AND N/V Active Zofran Active Medications Dilaudid 0.5 mg, 0.5 mL, Route: IVP, Drug form: INJ, ONCE, Dosing Weight 72.727, kg, Priority: STAT, Start date: 05/07/15 22:42:00, Stop date: 05/07/15 22:42:00 Notes: Same as: Dilaudid Start Date: 05/07/15 Stop Date: 05/07/15 Status: Completedpromethazine 12.5 mg, 1 tab, Route: PO, Drug form: TAB, ONCE, Dosing Weight 72.727, kg, Priority: STAT, Start date: 05/07/15 22:42:00, Stop date: 05/07/15 22:42:00 Notes: (Same as: Phenergan) Start Date: 05/07/15 Stop Date: 05/07/15 Status: CompletedTylenol with Codeine #3 oral tablet 1 - 2 tab, PO, Q6H, PRN Pain, X 4 day, # 32 tab, 0 Refill(s) Start Date: 05/08/15 Stop Date: 05/12/15 Status: Ordered Results No data available for this section Immunizations Vaccine Date Refusal Reason influenza virus vaccine, inactivated 05/03/10 pneumococcal 23-valent vaccine 03/11/08 Procedures Procedure Date Related Diagnosis Body Site Back fusion Cholecystectomy Hand Hand repair1 Hysterectomy Hysterectomy Nerve block Shoulder Thyroidectomy2 1thumb joint [id number] Social History Social History Type Response Substance [...]
--- OUTSIDE RECORDS SUMMARY | 2017-11-26 11:34 | XMS REPORT | Summary of Care ---
:1980 Author Organization [facility] Address [address] [place] [address]- Encounter WILLI Cardenas(DAKOTAH) [id number] Date(s): 06/25/15 - 06/25/[address] [address]- Discharge Diagnosis: Effusion of right knee Discharge Disposition: Elopement Attending Physician: Pancho Pinedo DO Vital Signs Most recent to oldest [Reference Range]: 1 2 Height 170.18 cm (06/25/15 3:16 PM) Temperature Oral [96.4-99.1 DegF] 98.0 DegF (06/25/15 5:53 PM) Blood Pressure [90-140/60-90 mmHg] 115/85 mmHg 121/74 mmHg (06/25/15 5:53 PM) (06/25/15 3:16 PM) Respiratory Rate [14-20 BRMIN] 16 BRMIN 19 BRMIN (06/25/15 5:53 PM) (06/25/15 3:16 PM) Peripheral Pulse Rate [60-100 bpm] 89 bpm 107 bpm (06/25/15 5:53 PM) *HI* (06/25/15 3:16 PM) Weight 76.364 kg (06/25/15 3:16 PM) Body Mass Index 26.37 m2 (06/25/15 3:16 PM) Problem List Condition Effective Dates Status Health Status Informant Anemia(Confirmed)1 Resolved Anxiety(Confirmed) Active Bipolar(Confirmed) Active Chronic back pain(Confirmed) Active Constipation(Confirmed) Active Depression(Confirmed) Active Fracture(Confirmed)2 Resolved Gallbladder disease(Confirmed) 2009 Active Hypotension(Confirmed) Resolved Hypothyroid(Confirmed) Active Hysterectomy(Confirmed) Active Knee pain(Confirmed) Active Migraine(Confirmed) Active MVP - Mitral valve Resolved prolapse(Confirmed) Nausea and vomiting(Confirmed) < 05/16/10 Resolved Ovarian cyst(Confirmed) 02/11/11 Active Pain, lower right quad.(Confirmed) 02/28/11 Active Panic attack(Confirmed) Active 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) RSD - Reflex sympathetic Resolved dystrophy(Confirmed) Seizure(Confirmed) Resolved Shoulder injury(Confirmed) Resolved Syncope(Confirmed) Active Vasovagal attack(Confirmed) Resolved Vasovagal syncope(Confirmed) Active 1only when [id number] fx x 8 Allergies, Adverse Reactions, Alerts Substance Reaction Severity Status aspirin ANXIETY/INCREASED HEART RATE Active Food Nuts Active Food Soybean Active naproxen Aspirin Active ANXIETY Other Food Allergy Active Talwin HEAD ACHE AND N/V Active Zofran Active Medications Flexeril 10 mg, Route: PO, ONCE, Dosing Weight 76.364, kg, Priority: STAT, Start date: 15:54:00, Stop date: 06/25/15 15:54:00 Start Date: 06/25/15 Stop Date: 06/25/15 Status: CompletedNorco 5/325 oral tablet 2 tab, Route: PO, Drug Form: TAB, Dosing Weight 76.364, kg, ONCE, STAT, Start date: 06/25/15 15:58:00, Stop date: 06/25/15 15:58:00 Start Date: 06/25/15 Stop Date: 06/25/15 Status: CompletedTylenol 650 mg, Route: PO, Drug form: TAB, ONCE, Dosing Weight 76.364, kg, Priority: STAT, Start date: 06/25/15 15:24:00, Stop date: 06/25/15 15:24:00 Start Date: 06/25/15 Stop Date: 06/25/15 Status: DiscontinuedTylenol with Codeine #3 oral tablet 1 - 2 tab, PO, Q4H, PRN Pain, X 4 day, # 36 tab, 0 Refill(s) Start Date: 06/25/15 Stop Date: 06/29/15 Status: Ordered Results No data available for this section Immunizations Vaccine Date Refusal Reason influenza virus vaccine, inactivated 05/03/10 pneumococcal 23-valent vaccine 03/11/08 Procedures Procedure Date Related Diagnosis Body Site Cervical spinal fusion Cholecystectomy Hand Hand repair1 Hysterectomy Knee replacement Nerve block Shoulder Thyroidectomy2 1thumb joint [id number] Social History Social History Type Response Substance [...] Days No; Reg Smoking Cessation Counseling No [id number] Assessment and Plan No data available for this section
--- OUTSIDE RECORDS SUMMARY | 2017-11-26 11:34 | XMS REPORT | Summary of Care ---
:1980 Author Organization [facility] Address [address], [place] [address]- Encounter HQ Ronald(DAKOTAH) [id number] Date(s): 08/08/15 - 08/08/15 [facility] [address] [place] [id number]- Discharge Disposition: Home Attending Physician: Cesar Mercer MD Admitting Physician: Cesar Mercer MD Referring Physician: Cesar Mercer MD Vital Signs Most recent to oldest 1 2 3 [Reference Range]: Height 167.64 cm (08/01/15 5:34 PM) Blood Pressure [90-140/60-90 121/71 mmHg 121/66 mmHg 128/74 mmHg mmHg] (08/08/15 12:15 PM) (08/08/15 12:00 PM) (08/08/15 11:45 AM) Respiratory Rate [14-20 BRMIN] 13 BRMIN 20 BRMIN 9 BRMIN *LOW* (08/08/15 12:00 PM) *LOW* (08/08/15 12:15 PM) (08/08/15 11:50 AM) Peripheral Pulse Rate [60-100 91 bpm 103 bpm bpm] (08/08/15 8:00 AM) *HI* (08/01/15 4:00 PM) Weight 78.636 kg (08/01/15 5:34 PM) Body Mass Index 27.98 m2 (08/01/15 5:34 PM) Problem List Condition Effective Dates Status [...] attack(Confirmed) Resolved Vasovagal syncope(Confirmed) Active 1only when [id number] fx x 8 Allergies, Adverse Reactions, Alerts Substance Reaction Severity Status aspirin ANXIETY/INCREASED HEART RATE Active Food Nuts1 Active naproxen Aspirin Active ANXIETY Other Food Allergy2 Active Talwin HEAD ACHE AND N/V Active Zofran Active 1severe all vmyy0pczpl and balsamic vinegar Medications acetaminophen (ANES) Route: IV, Drug form: INJ, ONCE, Stop date: 08/08/15 10:36:00 CDT Start Date: 08/08/15 Stop Date: 08/08/15 Status: Completedacetaminophen-hydrocodone 325 mg-7.5 mg oral tablet 1 tab, Route: PO, Drug Form: TAB, Dosing Weight 78.636, kg, Q6H, PRN Pain Score 4-6, Start date: 08/08/15 9:34:00 CDT, Duration: 30 day, Stop date: 09/07/15 9: 33:00 CDT Notes: Same as [place] 325-7.5mg Do not exceed 4gm/day of acetaminophen. Start Date: 08/08/15 Stop Date: 08/08/15 Status: DiscontinuedceFAZolin (ANES) Route: IV, Drug form: INJ, ONCE, Stop date: 08/08/15 10:46:00 CDT Start Date: 08/08/15 Stop Date: 08/08/15 Status: CompletedCymbalta 60 mg, 2 cap, Route: PO, Drug form: DRC, BID, Dosing Weight 78.636, kg, Start date: 08/08/15 17:00:00 CDT, Duration: 30 day, Stop date: 09/07/15 9:00:00 CDT Notes: (Same as: Cymbalta) (Do Not Crush) Start Date: 08/08/15 Stop Date: 08/08/15 Status: Canceleddexamethasone (ANES) Route: IV, Drug form: INJ, ONCE, Stop date: 08/08/15 10:41:00 CDT Start Date: 08/08/15 Stop Date: 08/08/15 Status: Completedestradiol 2 mg, 2 tab, Route: PO, Drug form: TAB, Daily, Dosing Weight 78.636, kg, Start date: 08/09/15 9:00:00 CDT, Duration: 30 day, Stop date: 09/07/15 9:00:00 CDT Start Date: 08/09/15 Stop Date: 08/08/15 Status: CanceledfentaNYL (ANES) Route: IV, Drug form: INJ, ONCE, Stop date: 08/08/15 11:01:00 CDT Start Date: 08/08/15 Stop Date: 08/08/15 Status: Completedglycopyrrolate (ANES) Route: IV, Drug form: INJ, ONCE, Stop date: 08/08/15 11:11:00 CDT Start Date: 08/08/15 Stop Date: 08/08/15 Status: Completedhydromorphone (ANES) Route: IV, Drug form: INJ, ONCE, Stop date: 08/08/15 11:11:00 CDT Start Date: 08/08/15 Stop Date: 08/08/15 Status: CompletedhydrOXYzine hydrochloride 25 mg oral tablet 50 mg, 2 tab, Route: PO, Drug form: TAB, QID, Dosing Weight 78.636, kg, PRN Anxiety, Start date: 08/08/15 9:34:00 CDT, Duration: 30 day, Stop date: 9:33:00 CDT Notes: (Same as: Atarax) Avoid alcohol. Start Date: 08/08/15 Stop Date: 08/08/15 Status: DiscontinuedLactated Ringers Injection IV (ANES) (ANES) Route: IV, Total Volume: 1,000, Start date: 08/08/15 9:35:00 CDT, Stop date: 07/20 10:35:00 CDT Start Date: 08/08/15 Stop Date: 08/08/15 Status: CompletedLactated Ringers Injection IV 1,000 mL 1,000 mL, Rate: 25 ml/hr, Infuse over: 40 hr, Route: IV, Dosing Weight 78.636 kg , Total Volume: 1,000, Start date: 08/08/15 7:18:00 CDT, Duration: 6 hr, Stop date: 08/08/15 13:17:00 CDT Start Date: 08/08/15 Stop Date: 08/08/15 Status: CompletedlamoTRIgine 100 mg oral tablet 100 mg, 1 tab, Route: PO, Drug form: TAB, BID, Dosing Weight 78.636, kg, Start date: 08/08/15 17:00:00 CDT, Duration: 30 day, Stop date: 09/07/15 9:00:00 CDT Notes: (Same as:LaMICtal) Start Date: 08/08/15 Stop Date: 08/08/15 Status: Canceledlevothyroxine 75 microgram, 1 tab, Route: PO, Drug form: TAB, Daily, Dosing Weight 78.636, kg , Start date: 08/09/15 9:00:00 CDT, Duration: 30 day, Stop date: 09/07/15 9:00: 00 CDT Notes: Take 1 hour before or 2 hours after meal; Enteral feeds may interefere with the absorption ofthis medication. (Same as:Synthroid, Levothroid) Start Date: 08/09/15 Stop Date: 08/08/15 Status: Canceledlidocaine (ANES) Route: IV, Drug form: INJ, ONCE, Stop date: 08/08/15 10:36:00 CDT Start Date: 08/08/15 Stop Date: 08/08/15 Status: Completedmidazolam (ANES) Route: IV, Drug form: SOLN, ONCE, Stop date: 08/08/15 10:31:00 CDT Start Date: 08/08/15 Stop Date: 08/08/15 Status: Completedneostigmine (ANES) Route: IV, Drug form: INJ, ONCE, Stop date: 08/08/15 11:11:00 CDT Start Date: 08/08/15 Stop Date: 08/08/15 Status: CompletedNorco 10/325 oral tablet 1-2 tab, PO, Q6H, PRN Pain, X 5 day, # 100 tab, 0 Refill(s), given to patient Start Date: 08/08/15 Stop Date: 08/13/15 Status: OrderedNorco 10/325 oral tablet 1 tab, Route: PO, Drug Form: TAB, Dosing Weight 78.636, kg, ONCE, PRN Pain Score 4-6, Start date: 08/08/15 12:11:00 CDT, Stop date: 09/07/15 12:10:00 CDT Start Date: 08/08/15 Stop Date: 08/08/15 Status: CompletedPhenergan 25 mg oral tablet 25 mg=1 tab, PO, Q6H, PRN Nausea, X 4 day, # 60 tab, 0 Refill(s), given to patient Start Date: 08/08/15 Stop Date: 08/12/15 Status: Orderedpromethazine (ANES) Route: IV, Drug form: INJ, ONCE, Stop date: 08/08/15 10:41:00 CDT Start Date: 08/08/15 Stop Date: 08/08/15 Status: Completedpropofol (ANES) Route: IV, Drug form: INJ, ONCE, Stop date: 08/08/15 10:36:00 CDT Start Date: 08/08/15 Stop Date: 08/08/15 Status: Completedrocuronium (ANES) Route: IV, Drug form: INJ, ONCE, Stop date: 08/08/15 10:36:00 CDT Start Date: 08/08/15 Stop Date: 08/08/15 Status: CompletedSEROquel 400 mg, 4 tab, Route: PO, Drug form: TAB, Daily, Dosing Weight 78.636, kg, Start date: 08/09/15 9:00:00 CDT, Duration: 30 day, Stop date: 09/07/15 9:00:00 CDT Notes: (Same as: SEROquel) Start Date: 08/09/15 Stop Date: 08/08/15 Status: Canceled Results ELECTROLYTES Most recent to oldest [Reference Range]: 1 Sodium Lvl [135-145 mEq/L] 139 mEq/L (08/01/15 5:41 PM) Potassium Lvl [3.5-5.1 mEq/L] 4.1 mEq/L (08/01/15 5:41 PM) Chloride Lvl [95-109 mEq/L] 103 mEq/L (08/01/15 5:41 PM) CO2 [24-32 mEq/L] 28 mEq/L (08/01/15 5:41 PM) AGAP [10.0-20.0 mEq/L] 12.1 mEq/L (08/01/15 5:41 PM) CHEM PANEL Most recent to oldest [Reference Range]: 1 Creatinine Lvl [0.50-1.40 mg/dL] 0.80 mg/dL (08/01/15 5:41 PM) eGFR 95 mL/min/1.73m2 1 *NA* (08/01/15 5:41 PM) BUN [7-22 mg/dL] 12 mg/dL (08/01/15 5:41 PM) B/C Ratio [6-25] 15 (08/01/15 5:41 PM) Glucose Lvl [70-99 mg/dL] 120 mg/dL *HI* (08/01/15 5:41 PM) Total Protein [6.4-8.4 g/dL] 6.8 g/dL (08/01/15 5:41 PM) Albumin Lvl [3.5-5.0 g/dL] 3.5 g/dL (08/01/15 5:41 PM) Globulin [2.0-4.0 g/dL] 3.3 g/dL (08/01/15 5:41 PM) A/G Ratio [0.7-1.6] 1.1 (08/01/15 5:41 PM) Calcium Lvl [8.5-10.5 mg/dL] 8.9 mg/dL (08/01/15 5:41 PM) ALT [0-65 unit/L] 36 unit/L (08/01/15 5:41 PM) AST [0-37 unit/L] 20 unit/L (08/01/15 5:41 PM) Alk Phos [39-136 unit/L] 97 unit/L (08/01/15 5:41 PM) Bili Total [0.2-1.3 mg/dL] 0.2 mg/dL (08/01/15 5:41 PM) 1Result Comment: The eGFR is calculated [...] eGFR should be multiplied by the estimated BMI.HEMATOLOGY Most recent to oldest [Reference Range]: 1 WBC [3.7-10.4 K/CMM] 9.1 K/CMM (08/01/15 5:41 PM) RBC [4.20-5.40 M/CMM] 4.09 M/CMM *LOW* (08/01/15 5:41 PM) Hgb [12.0-16.0 g/dL] 12.1 g/dL (08/01/15 5:41 PM) Hct [36.0-48.0 %] 36.5 % (08/01/15 5:41 PM) MCV [80.0-98.0 fL] 89.2 fL (08/01/15 5:41 PM) MCH [27.0-31.0 pg] 29.7 pg (08/01/15 5:41 PM) MCHC [32.0-36.0 g/dL] 33.2 g/dL (08/01/15 5:41 PM) RDW [11.5-14.5 %] 13.9 % (08/01/15 5:41 PM) Platelet [133-450 K/CMM] 319 K/CMM (08/01/15 5:41 PM) MPV [7.4-10.4 fL] 8.2 fL (08/01/15 5:41 PM) Segs [45.0-75.0 %] 46.8 % (08/01/15 5:41 PM) Lymphocytes [20.0-40.0 %] 41.2 % *HI* (08/01/15 5:41 PM) Monocytes [2.0-12.0 %] 9.1 % (08/01/15 5:41 PM) Eosinophils [0.0-4.0 %] 1.6 % (08/01/15 5:41 PM) Basophils [0.0-1.0 %] 1.3 % *HI* (08/01/15 5:41 PM) Segs-Bands # [1.5-8.1 K/CMM] 4.2 K/CMM (08/01/15 5:41 PM) Lymphocytes # [1.0-5.5 K/CMM] 3.7 K/CMM (08/01/15 5:41 PM) Monocytes # [0.0-0.8 K/CMM] 0.8 K/CMM (08/01/15 5:41 PM) Eosinophils # [0.0-0.5 K/CMM] 0.1 K/CMM (08/01/15 5:41 PM) Basophils # [0.0-0.2 K/CMM] 0.1 K/CMM (08/01/15 5:41 PM) Immunizations Vaccine Date Refusal Reason influenza virus vaccine, inactivated 05/03/10 pneumococcal 23-valent vaccine 03/11/08 Procedures Procedure Date Related Diagnosis Body Site Arthroscopy of knee 06/11/15 Cervical spinal fusion Cholecystectomy Hand Hand repair1 Hysterectomy Nerve block Shoulder Thyroidectomy2 1thumb joint [id number] Social History Social History Type Response Substance [...] Days No; Reg Smoking Cessation Counseling No [id number] Assessment and Plan No data available for this section
--- OUTSIDE RECORDS SUMMARY | 2017-11-26 11:34 | XMS REPORT | Summary of Care ---
:1980 Author Organization [facility] Address [address], [place] [address]- Encounter HQ Ronald(DAKOTAH) [id number] Date(s): 07/16/15 - 07/19/15 [facility] [address] [place] [address]- Discharge Disposition: Home Attending Physician: Lalo Tapia MD Admitting Physician: Lalo Tapia MD Vital Signs Most recent to oldest 1 2 3 [Reference Range]: Height 170.18 cm 167.64 cm (07/16/15 10:10 PM) (07/16/15 5:05 PM) Current Weight 77.6 kg (07/17/15 5:25 AM) Temperature Oral [96.4-99.1 98.0 DegF 98.1 DegF 98.2 DegF DegF] (07/19/15 6:21 AM) (07/18/15 11:31 PM) (07/18/15 6:30 PM) Blood Pressure [90-140/60-90 132/68 mmHg 140/80 mmHg 142/85 mmHg mmHg] (07/19/15 6:21 AM) (07/18/15 11:31 PM) *HI* (07/18/15 6:30 PM) Respiratory Rate [14-20 20 BRMIN 18 BRMIN 16 BRMIN BRMIN] (07/19/15 8:54 AM) (07/19/15 6:21 AM) (07/18/15 11:31 PM) Peripheral Pulse Rate 85 bpm 89 bpm 101 bpm [60-100 bpm] (07/19/15 6:21 AM) (07/18/15 11:31 PM) *HI* (07/18/15 6:30 PM) Weight 77.6 kg 75 kg (07/16/15 10:10 PM) (07/16/15 5:05 PM) Body Mass Index 26.79 m2 26.69 m2 (07/16/15 10:10 PM) (07/16/15 5:05 PM) Problem List Condition Effective Dates Status [...] attack(Confirmed) Resolved Vasovagal syncope(Confirmed) Active 1only when [id number] fx x 8 Allergies, Adverse Reactions, Alerts Substance Reaction Severity Status aspirin ANXIETY/INCREASED HEART RATE Active Food Nuts1 Active naproxen Aspirin Active ANXIETY Other Food Allergy2 Active Talwin HEAD ACHE AND N/V Active Zofran Active 1severe all eran8fatet and balsamic vinegar Medications acetaminophen 650 mg, 2 tab, Route: PO, Drug form: TAB, Q4H, Dosing Weight 75, kg, PRN For Temp > 100.4 F, Start date: 07/16/15 21:26:00 CDT, Duration: 30 day, Stop date: 08/15/15 21:25:00 CDT Notes: Do not exceed 4 gm/day. (Same as: Tylenol) Start Date: 07/16/15 Stop Date: 07/19/15 Status: Discontinuedacetaminophen-hydrocodone 325 mg-7.5 mg oral tablet 1 tab, PO, Q6H, PRN Pain, # 28 tab, 0 Refill(s) Start Date: 07/16/15 Stop Date: 07/23/15 Status: Orderedalbuterol-ipratropium 2.5-0.5 mg inhalation solution 3 ml, Route: NEB, Drug Form: SOLN, Dosing Weight 75, kg, PRN, PRN Respiratory Protocol, Start date: 07/16/15 21:26:00 CDT, Duration: 30 day, Stop date: 21:25:00 CDT Notes: (Same as: Duoneb) Start Date: 07/16/15 Stop Date: 07/17/15 Status: Discontinuedalbuterol-ipratropium 2.5-0.5 mg inhalation solution 3 mL, Route: NEB, Drug Form: SOLN, Dosing Weight 75, kg, ONCE, STAT, Start date : 07/16/15 17:54:00 CDT, Stop date: 07/16/15 17:54:00 CDT Start Date: 07/16/15 Stop Date: 07/16/15 Status: CompletedAtivan 1 mg, 0.5 mL, Route: IVP, Drug form: INJ, ONCE, Dosing Weight 77.6, kg, PRN Anxiety, Start date: 07/18/15 9:56:00 CDT Notes: (Same as: Ativan) Start Date: 07/18/15 Stop Date: 07/18/15 Status: CompletedAtivan 1 mg oral tablet 1 mg=1 tab, PO, TID, PRN Anxiety, X 6 day, # 20 tab, 0 Refill(s) Start Date: 07/19/15 Stop Date: 07/25/15 Status: Orderedazithromycin + Sodium Chloride 0.9% IV 250 mL 500 mg, Route: IVPB, [id number], Dosing Weight 77.6, kg, Priority: NOW, Start date : 07/18/15 16:44:00 CDT, Duration: 30 day, Stop date: 08/16/15 16:44:00 CDT Notes: (Same As: Zithromax IV) Start Date: 07/18/15 Stop Date: 07/19/15 Status: Discontinuedazithromycin 250 mg oral tablet 250 mg=1 tab, PO, Daily, X 4 day, # 4 tab, 0 Refill(s) Start Date: 07/19/15 Stop Date: 07/23/15 Status: OrderedBenadryl 25 mg, 1 tab, Route: PO, Drug form: TAB, TID, Dosing Weight 77.6, kg, PRN Itching, Start date: 07/18/15 15:49:00 CDT, Duration: 30 day, Stop date: 15:48:00 CDT Start Date: 07/18/15 Stop Date: 07/19/15 Status: DiscontinuedBenadryl 25 mg, 1 tab, Route: PO, Drug form: TAB, Q4H, Dosing Weight 77.6, kg, Start date : 07/17/15 12:00:00 CDT, Duration: 30 day, Stop date: 08/16/15 8:00:00 CDT Start Date: 07/17/15 Stop Date: 07/19/15 Status: DiscontinuedBenadryl 12.5 mg, 0.25 mL, Route: IVP, Drug form: INJ, Q4H, Dosing Weight 75, kg, Priority: STAT, Start date:07/16/15 21:29:00 CDT, Stop date: 08/15/15 20:00:00 CDT Notes: (Same as: Benadryl) Start Date: 07/16/15 Stop Date: 07/17/15 Status: DiscontinuedBenadryl 25 mg, Route: IVP, ONCE, Dosing Weight 75, kg, Priority: STAT, Start date: 07/15 19:28:00 CDT, Stop date: 07/16/15 19:28:00 CDT Start Date: 07/16/15 Stop Date: 07/16/15 Status: Completedbisacodyl 10 mg, 1 supp, Route: NY, Drug form: SUPP, Daily, Dosing Weight 75, kg, PRN Other -See Comment, Start date: 07/16/15 21:26:00 CDT, Duration: 30 day, Stop date: 08/15/15 21:25:00 CDT Notes: (Same As: Dulcolax, Bisco-Lax) Start Date: 07/16/15 Stop Date: 07/19/15 Status: Discontinuedcalcium carbonate 500 mg (200 mg elemental calcium) oral tablet 500 mg, 1 tab, Route: PO, Drug form: CHEWTAB, PRN, Dosing Weight 75, kg, PRN Abnormal Lab Result, FOR ICU USE ONLY, Start date: 07/16/15 21:26:00 CDT, Duration: 30 day, Stop date: 08/15/15 21:25:00 CDT Notes: (Same As: Tums)Calcium Carbonate 500 vd=510 mg elemental calcium Dose=_ mg calcium carbonate ( mg elemental calcium) Start Date: 07/16/15 Stop Date: 07/17/15 Status: Discontinuedcalcium carbonate 500 mg (200 mg elemental calcium) oral tablet 1,000 mg, 2 tab, Route: PO, Drug form: CHEWTAB, PRN, Dosing Weight 75, kg, PRN Abnormal Lab Result, FOR ICU USE ONLY, Start date: 07/16/15 21:26:00 CDT, Duration: 30 day, Stop date: 08/15/15 21:25:00 CDT Notes: (Same As: Tums)Calcium Carbonate 500 nh=668 mg elemental calcium Dose=_ mg calcium carbonate ( mg elemental calcium) Start Date: 07/16/15 Stop Date: 07/17/15 Status: Discontinuedcalcium gluconate + Sodium Chloride 0.9% IV 50 mL 1 gm, 10 mL, Route: IVPB, PRN, Dosing Weight 75, kg, PRN Abnormal Lab Result, Start date: 07/16/15 21:26:00 CDT, Duration: 30 day, Stop date: 08/15/15 21:25: 00 CDT, FOR ICU USE ONLY Notes: WASTE: F/P - Sink; E - Municipal Trash Bin Start Date: 07/16/15 Stop Date: 07/17/15 Status: DiscontinuedCymbalta 60 mg, 1 cap, Route: PO, Drug form: DRC, BID, Dosing Weight 77.6, kg, Start date : 07/17/15 10:00:00 CDT, Duration: 30 day, Stop date: 08/16/15 9:00:00 CDT Notes: (Same as: Cymbalta) (Do Not Crush) Start Date: 07/17/15 Stop Date: 07/19/15 Status: DiscontinuedDextrose 50% Syringe 25 gm, 50 mL, Route: IVP, Drug Form: INJ, Dosing Weight 77.6, kg, PRN, PRN Blood Glucose Results, Start date: 07/17/15 7:27:00 CDT, Duration: 30 day, Stop date: 08/16/15 7:26:00 CDT Start Date: 07/17/15 Stop Date: 07/19/15 Status: DiscontinuedDextrose 50% Syringe 12.5 gm, 25 mL, Route: IVP, Drug Form: INJ, Dosing Weight 77.6, kg, PRN, PRN Blood Glucose Results, Start date: 07/17/15 7:27:00 CDT, Duration: 30 day, Stop date: 08/16/15 7:26:00 CDT Start Date: 07/17/15 Stop Date: 07/19/15 Status: DiscontinueddiphenhydrAMINE 25 mg oral tablet 25 mg=1 tab, PO, BID, X 7 day, # 14 tab, 0 Refill(s) Start Date: 07/19/15 Stop Date: 07/26/15 Status: Ordereddocusate 100 mg, 1 cap, Route: PO, Drug form: CAP, Q12H, Dosing Weight 75, kg, PRN as needed for constipation, Start date: 07/16/15 21:26:00 CDT, Duration: 30 day, Stop date: 08/15/15 21:25:00 CDT Notes: (Same as: Colace) (Do Not Crush) Start Date: 07/16/15 Stop Date: 07/19/15 Status: DiscontinuedDuoNeb inhalation solution 3 ml, Route: NEB, Drug Form: SOLN, Dosing Weight 77.6, kg, [id number], Start date: 07/17/15 15:00:00 CDT, Duration: 30 day, Stop date: 08/16/15 11:00:00 CDT Notes: (Same as: Duoneb) Start Date: 07/17/15 Stop Date: 07/19/15 Status: DiscontinuedDuoNeb inhalation solution 3 ml, Route: NEB, Drug Form: SOLN, Dosing Weight 77.6, kg, [id number], PRN as needed for shortness of breath or wheezing, Start date: 07/18/15 9:58:00 CDT, Duration: 30 day, Stop date: 08/17/15 9:57:00 CDT Notes: (Same as: Duoneb) Start Date: 07/18/15 Stop Date: 07/19/15 Status: DiscontinuedDuoNeb inhalation solution 3 mL, NEB, QID, # 360 mL, 0 Refill(s) Start Date: 07/19/15 Stop Date: 08/18/15 Status: OrderedDuoNeb inhalation solution 3 ml, Route: NEB, Drug Form: SOLN, Dosing Weight 77.6, kg, PRN, PRN Respiratory Protocol, Start date: 07/17/15 11:59:00 CDT, Duration: 30 day, Stop date: 11:58:00 CDT Start Date: 07/17/15 Stop Date: 07/17/15 Status: DiscontinuedDuoNeb inhalation solution 9 mL, Route: NEB, Dosing Weight 75, kg, ONCE, Start date: 07/16/15 19:20:00 CDT , Stop date: 07/15/1618:20:00 CDT Start Date: 07/16/15 Stop Date: 07/16/15 Status: CompletedEPINEPHrine 1 mg/mL (1:1000) injectable solution 0.5 mg, 0.5 mL, Route: IM, Drug form: INJ, Q5Min, Dosing Weight 75, kg, PRN as needed for shortness of breath or wheezing, Start date: 07/16/15 17:55:00 CDT, Duration: 30 day, Stop date: 08/15/15 17:54:00 CDT Notes: (Same as: Adrenalin) Suremed - Injectable drug used as inhalation treatment. MEDICATION WASTE Product Size: 1 mgProduct Wasted: 0.5 mg Start Date: 07/16/15 Stop Date: 07/19/15 Status: DiscontinuedEPINEPHrine 1 mg/mL (1:1000) injectable solution 0.5 mg, Route: IM, ONCE, Dosing Weight 75, kg, Priority: STAT, Start date: 07/15 17:54:00 CDT, Stop date: 07/16/15 17:54:00 CDT Start Date: 07/16/15 Stop Date: 07/16/15 Status: CompletedEpiPen Auto-Injector 0.3 mg injectable kit 0.3 mg, IM, ONCE, # 1 kit, 1 Refill(s) Start Date: 07/19/15 Status: Orderedferrous sulfate 325 mg, 1 tab, Route: PO, Drug form: TAB, Daily, Dosing Weight 77.6, kg, Priority: NOW, Start date: 07/18/15 16:53:00 CDT, Duration: 30 day, Stop date: 08/17/15 9:00:00 CDT Notes: Give with food.iron elemental [id number] as ferrous sulfateDose=___mg elemental iron Start Date: 07/18/15 Stop Date: 07/19/15 Status: DiscontinuedGI cocktail 30 ml, Route: PO, Drug Form: SUSP, Dosing Weight 77.6, kg, Q4H, PRN Indigestion , Routine, Start date: 07/18/15 19:16:00 CDT, Duration: 30 day, Stop date: 08/16 19:15:00 CDT, DYSPEPSIA Notes: G.I. Cocktail=antacid with simethicone 22.5 mL - lidocaine viscous 7.5 mL Start Date: 07/18/15 Stop Date: 07/19/15 Status: Discontinuedglucagon 1 mg, Route: IM, Drug form: PDR/INJ, PRN, Dosing Weight 77.6, kg, PRN Blood Glucose Results, Start date: 07/17/15 7:27:00 CDT, Duration: 30 day, Stop date: 08/16/15 7:26:00 CDT Start Date: 07/17/15 Stop Date: 07/19/15 Status: DiscontinuedhydrOXYzine hydrochloride 25 mg oral tablet 50 mg, 2 tab, Route: PO, Drug form: TAB, QID, PRN Anxiety, Start date: 07/17/15 10:30:00 CDT, Duration: 30 day, Stop date: 08/16/15 10:29:00 CDT Notes: (Same as: Atarax) Avoid alcohol. Start Date: 07/17/15 Stop Date: 07/19/15 Status: DiscontinuedhydrOXYzine hydrochloride 50 mg oral tablet 50 mg, PO, QID, PRN as needed for anxiety Start Date: 07/17/15 Status: OrderedhydrOXYzine pamoate 50 mg oral capsule 50 mg, 1 cap, Route: PO, Drug form: CAP, QID, Dosing Weight 77.6, kg, PRN Anxiety, Start date: 07/17/15 9:03:00 CDT, Duration: 30 day, Stop date: 9:02:00 CDT Start Date: 07/17/15 Stop Date: 07/17/15 Status: DeletedhydrOXYzine pamoate 50 mg oral capsule 50 mg=1 cap, PO, QID, PRN Anxiety, # 40 cap, 0 Refill(s) Start Date: 07/17/15 Stop Date: 07/17/15 Status: Discontinuedinsulin aspart 2 unit, 0.02 mL, Route: SUB-Q, Drug form: SOLN, Sliding Scale, Dosing Weight 77.6, kg, PRN Blood Glucose Results, Start date: 07/17/15 7:27:00 CDT, Duration : 30 day, Stop date: 08/16/15 7:26:00 CDT Notes: Roll in palms of hands gently; Do not shake vigorously. (Same as: Apalya)"single patient use only"WASTE: F/P - Black; E - Municipal Trash Bin Stable for 28 days at room temperature.Expires in days from Date Start Date: 07/17/15 Stop Date: 07/19/15 Status: Discontinuedinsulin aspart 4 unit, 0.04 mL, Route: SUB-Q, Drug form: SOLN, Sliding Scale, Dosing Weight 77.6, kg, PRN Blood Glucose Results, Start date: 07/17/15 7:27:00 CDT, Duration : 30 day, Stop date: 08/16/15 7:26:00 CDT Notes: Roll in palms of hands gently; Do not shake vigorously. (Same as: Apalya)"single patient use only"WASTE: F/P - Black; E - Municipal Trash Bin Stable for 28 days at room temperature.Expires in days from Date Start Date: 07/17/15 Stop Date: 07/19/15 Status: Discontinuedinsulin aspart 8 unit, 0.08 mL, Route: SUB-Q, Drug form: SOLN, Sliding Scale, Dosing Weight 77.6, kg, PRN Blood Glucose Results, Start date: 07/17/15 7:27:00 CDT, Duration : 30 day, Stop date: 08/16/15 7:26:00 CDT Notes: Roll in palms of hands gently; Do not shake vigorously. (Same as: NovoLOG)"single patient use only"WASTE: F/P - Black; E - Municipal Trash Bin Stable for 28 days at room temperature.Expires in days from Date Start Date: 07/17/15 Stop Date: 07/19/15 Status: Discontinuedinsulin aspart 10 unit, 0.1 mL, Route: SUB-Q, Drug form: SOLN, Sliding Scale, Dosing Weight 77.6, kg, PRN Blood Glucose Results, Start date: 07/17/15 7:27:00 CDT, Duration : 30 day, Stop date: 08/16/15 7:26:00 CDT Notes: Roll in palms of hands gently; Do not shake vigorously. (Same as: NovoLOG)"single patient use only"Stable for 28 days at room temperature. Start Date: 07/17/15 Stop Date: 07/19/15 Status: Discontinuedinsulin aspart 6 unit, 0.06 mL, Route: SUB-Q, Drug form: SOLN, Sliding Scale, Dosing Weight 77.6, kg, PRN Blood Glucose Results, Start date: 07/17/15 7:27:00 CDT, Duration : 30 day, Stop date: 08/16/15 7:26:00 CDT Notes: Roll in palms of hands gently; Do not shake vigorously. (Same as: NovoLOG)"single patient use only"WASTE: F/P - Black; E - Municipal Trash Bin Stable for 28 days at room temperature.Expires in days from Date Start Date: 07/17/15 Stop Date: 07/19/15 Status: Discontinuedipratropium 0.5 mg, 2.5 mL, Route: INHALATION, Drug form: SOLN, Q20Min, Dosing Weight 75, kg , PRN Allergic reaction, Priority: STAT, Start date: 07/16/15 21:23:00 CDT, Duration: 3 doses or times, Stop date: Limited # of times Notes: SEE RT DOCUMENTATION(Same as:Atrovent) Start Date: 07/16/15 Stop Date: 07/17/15 Status: Completediron sulfate (ferrous sulfate) 325 mg oral tablet 325 mg=1 tab, PO, Daily, # 30 tab, 0 Refill(s) Start Date: 07/19/15 Stop Date: 08/18/15 Status: Orderedlactulose 20 gm, 30 ml, Route: PO, Drug Form: SYRP, Dosing Weight 75, kg, Q6H, PRN as needed for constipation,Start date: 07/16/15 21:26:00 CDT, Duration: 30 day, Stop date: 08/15/15 21:25:00 CDT Notes: (Same as:Chronulac) Start Date: 07/16/15 Stop Date: 07/19/15 Status: DiscontinuedlamoTRIgine 100 mg oral tablet 100 mg, 1 tab, Route: PO, Drug form: TAB, BID, Dosing Weight 77.6, kg, Start date: 07/17/15 10:00:00CDT, Duration: 30 day, Stop date: 08/16/15 9:00:00 CDT Notes: (Same as:LaMICtal) Start Date: 07/17/15 Stop Date: 07/19/15 Status: Discontinuedlevothyroxine 75 microgram, 1 tab, Route: PO, Drug form: TAB, Daily, Dosing Weight 77.6, kg, Start date: 07/18/15 6:30:00 CDT, Duration: 30 day, Stop date: 08/16/15 6:30:00 CDT Notes: Take 1 hour before or 2 hours after meal; Enteral feeds may interefere with the absorption ofthis medication. (Same as:Synthroid, Levothroid) Start Date: 07/18/15 Stop Date: 07/19/15 Status: DiscontinuedLovenox 40 mg, 0.4 mL, Route: SUB-Q, Drug form: INJ, [id number], Dosing Weight 77.6, kg, Start date: 07/18/15 17:00:00 CDT, Duration: 30 day, Stop date: 08/16/15 17:00: 00 CDT Notes: (Same as: Lovenox) Start Date: 07/18/15 Stop Date: 07/19/15 Status: Discontinuedmagnesium oxide 800 mg, 2 tab, Route: PO, Drug form: TAB, PRN, Dosing Weight 75, kg, PRN Abnormal Lab Result, FOR ICU USE ONLY, Start date: 07/16/15 21:26:00 CDT, Duration: 30 day, Stop date: 08/15/15 21:25:00 CDT Notes: (Same as: Mag-Ox 400)Magnesium oxide [id number] elemental magnesiumDose= ____mg magnesium oxide (___mg elemental magnesium) Start Date: 07/16/15 Stop Date: 07/17/15 Status: Discontinuedmagnesium sulfate 2 gm, 50 mL, Route: IVPB, Drug form: INJ, PRN, Dosing Weight 75, kg, PRN Abnormal Lab Result, Start date: 07/16/15 21:26:00 CDT, Duration: 30 day, Stop date: 08/15/15 21:25:00 CDT, FOR ICU USE ONLY Notes: WASTE: F/P - Sink; E - Municipal Trash Bin Start Date: 07/16/15 Stop Date: 07/17/15 Status: Discontinuedmorphine Sulfate 2 mg, 1 mL, Route: IVP, Drug form: INJ, Q2H, Dosing Weight 75, kg, PRN Pain Score 7-10, Start date: 07/16/15 21:26:00 CDT, Duration: 30 day, Stop date: 02/19 21:25:00 CDT Notes: (Same as:MORPhine Sulfate) Start Date: 07/16/15 Stop Date: 07/18/15 Status: DiscontinuedNeutra-Phos 2 pkt, Route: PO, Drug Form: PDR/REC, Dosing Weight 75, kg, PRN, PRN Abnormal Lab Result, FOR ICU USE ONLY, Start date: 07/16/15 21:26:00 CDT, Duration: 30 day, Stop date: 08/15/15 21:25:00 CDT Notes: (Same as: Neutra-Phos) Each 1.25 gm pkt has 250mg phosphorous. Mix w/ 2.5oz water and stir. Start Date: 07/16/15 Stop Date: 07/17/15 Status: DiscontinuedNorco 5/325 oral tablet 2 tab, Route: PO, Drug Form: TAB, Dosing Weight 75, kg, Q4H, PRN Pain Score 4-6 , Start date: 07/16/15 21:26:00 CDT, Duration: 30 day, Stop date: 08/15/15 21:25 :00 CDT Notes: (Same as: [place] 325/5) Do not exceed 4gm/day of acetaminophen. Start Date: 07/16/15 Stop Date: 07/19/15 Status: DiscontinuedNorco 5/325 oral tablet 1 tab, Route: PO, Drug Form: TAB, Dosing Weight 75, kg, Q4H, PRN Pain Score 1-3 , Start date: 07/16/15 21:26:00 CDT, Duration: 30 day, Stop date: 08/15/15 21:25 :00 CDT Notes: (Same as: [place] 325/5) Do not exceed 4gm/day of acetaminophen. Start Date: 07/16/15 Stop Date: 07/19/15 Status: Discontinuedondansetron 4 mg, Route: IVP, Q8H, Dosing Weight 75, kg, PRN Nausea & Vomiting, Start date: 07/16/15 21:26:00 CDT, Duration: 30 day, Stop date: 08/15/15 21:25:00 CDT Start Date: 07/16/15 Stop Date: 07/17/15 Status: Deletedpantoprazole 40 mg, 1 tab, Route: PO, Drug form: ECTAB, Before Dinner, Dosing Weight 75, kg, Start date: 07/17/1615:30:00 CDT, Duration: 30 day, Stop date: 08/15/15 16:30: 00 CDT Notes: Tablet should not be chewed or crushed.(Same as: Protonix) Start Date: 07/17/15 Stop Date: 07/17/15 Status: Canceledpantoprazole 40 mg oral enteric coated tablet 40 mg=1 tab, PO, Daily, # 30 tab, 0 Refill(s) Start Date: 07/19/15 Stop Date: 08/18/15 Status: OrderedPepcid 40 mg, 4 mL, Route: IV, Drug form: INJ, ONCE, Dosing Weight 75, kg, Start date: 07/16/15 17:56:00 CDT, Stop date: 07/16/15 17:56:00 CDT Notes: (Same as: Pepcid)Can be dilute in 5-10cc NS IVP: Slow IV push over at least 2 minutes. Start Date: 07/16/15 Stop Date: 07/16/15 Status: CompletedPepcid 20 mg, 2 mL, Route: IV, Drug form: INJ, Q12H, Dosing Weight 75, kg, Start date: 07/17/15 9:00:00 CDT, Duration: 30 day, Stop date: 08/15/15 21:00:00 CDT, Notes: (Same as: Pepcid)Can be dilute in 5-10cc NS IVP: Slow IV push over at least 2 minutes. Start Date: 07/17/15 Stop Date: 07/17/15 Status: DiscontinuedPepcid 20 mg oral tablet 20 mg=1 tab, PO, Q12H, # 14 tab, 0 Refill(s) Start Date: 07/19/15 Stop Date: 07/26/15 Status: OrderedPepcid 20 mg oral tablet 20 mg, 1 tab, Route: PO, Drug form: TAB, Q12H, Dosing Weight 77.6, kg, Priority : NOW, Start date: 07/17/15 9:04:00 CDT, Duration: 30 day, Stop date: 08/16/15 9 :00:00 CDT Notes: (Same as: Pepcid) Start Date: 07/17/15 Stop Date: 07/19/15 Status: DiscontinuedPhenergan 25 mg, 50 mL, Route: IVPB, Drug form: SOLN, Q6H, Dosing Weight 77.6, kg, PRN Nausea & Vomiting, Priority: STAT, Start date: 07/18/15 19:17:00 CDT, Duration: 30 day, Stop date: 08/17/15 19:16:00 CDT Start Date: 07/18/15 Stop Date: 07/19/15 Status: Discontinuedpotassium chloride 20 mEq, 100 mL, Route: IVPB, Drug form: INJ, PRN, Dosing Weight 75, kg, PRN Abnormal Lab Result, Viacentral line, Start date: 07/16/15 21:26:00 CDT, Duration: 30 day, Stop date: 08/15/15 21:25:00 CDT,FOR ICU USE ONLY Notes: (Same as: KCL) Infuse no faster than 10 mEq/hr if given peripherally. Start Date: 07/16/15 Stop Date: 07/17/15 Status: Discontinuedpotassium chloride 20 mEq, 1 tab, Route: PO, Drug form: ERTAB, PRN, Dosing Weight 75, kg, PRN Abnormal Lab Result, Start date: 07/16/15 21:26:00 CDT, Duration: 30 day, Stop date: 08/15/15 21:25:00 CDT, FOR ICU USE ONLY Notes: (Same as: K-Dur 20)"Do Not Crush" With food and full glass of water Start Date: 07/16/15 Stop Date: 07/17/15 Status: Discontinuedpotassium chloride 10 mEq, 100 mL, Route: IVPB, Drug form: INJ, PRN, Dosing Weight 75, kg, PRN Abnormal Lab Result, Viaperipheral line, Start date: 07/16/15 21:26:00 CDT, Duration: 30 day, Stop date: 08/15/15 21:25:00 CDT, FOR ICU USE ONLY Notes: Infuse at a rate of 10 mEq/hr.(Same as: KCL) Start Date: 07/16/15 Stop Date: 07/17/15 Status: Discontinuedpotassium chloride 20 mEq, 15 mL, Route: NJ, Drug form: LIQ, PRN, Dosing Weight 75, kg, PRN Abnormal Lab Result, Start date: 07/16/15 21:26:00 CDT, Duration: 30 day, Stop date: 08/15/15 21:25:00 CDT, FOR ICU USE ONLY Notes: (Same as: Potassium Chloride) Start Date: 07/16/15 Stop Date: 07/17/15 Status: Discontinuedpotassium phosphate + Sodium Chloride 0.9% IV 250 mL 15 mmol, 5 mL, Route: IVPB, PRN, Dosing Weight 75, kg, PRN Abnormal Lab Result, Start date: 07/15/1620:26:00 CDT, Duration: 30 day, Stop date: 08/15/15 21:25: 00 CDT, FOR ICU USE ONLY Notes: (Same as: K Phosphate.) 1 mMol phoshate has 1.47 mEq potassium Infuse over 4 hours Start Date: 07/16/15 Stop Date: 07/17/15 Status: Discontinuedpotassium phosphate + Sodium Chloride 0.9% IV 250 mL 30 mmol, 10 mL, Route: IVPB, PRN, Dosing Weight 75, kg, PRN Abnormal Lab Result , Start date: 07/16/15 21:26:00 CDT, Duration: 30 day, Stop date: 08/15/15 21:25 :00 CDT, FOR ICU USE ONLY Notes: (Same as: K Phosphate.) 1 mMol phoshate has 1.47 mEq potassium Infuse over 4 hours Start Date: 07/16/15 Stop Date: 07/17/15 Status: Discontinuedpotassium phosphate + Sodium Chloride 0.9% IV 250 mL 45 mmol, 15 mL, Route: IVPB, PRN, Dosing Weight 75, kg, PRN Abnormal Lab Result , Start date: 07/16/15 21:26:00 CDT, Duration: 30 day, Stop date: 08/15/15 21:25 :00 CDT, FOR ICU USE ONLY Notes: (Same as: K Phosphate.) 1 mMol phoshate has 1.47 mEq potassium Infuse over 4 hours Start Date: 07/16/15 Stop Date: 07/17/15 Status: DiscontinuedpredniSONE 40 mg, 2 tab, Route: PO, Drug form: TAB, Daily, Dosing Weight 77.6, kg, Priority : NOW, Start date: 07/18/15 15:51:00 CDT, Duration: 30 day, Stop date: 08/17/15 9:00:00 CDT Notes: Take with food. Start Date: 07/18/15 Stop Date: 07/19/15 Status: DiscontinuedpredniSONE 20 mg oral tablet 40 mg=2 tab, PO, Daily, X 7 day, # 14 tab, 0 Refill(s) Start Date: 07/19/15 Stop Date: 07/26/15 Status: OrderedProtonix 40 mg, 1 tab, Route: PO, Drug form: ECTAB, BID, Dosing Weight 77.6, kg, Priority : NOW, Start date: 07/18/15 19:17:00 CDT, Duration: 30 day, Stop date: 08/17/15 17:00:00 CDT Notes: Tablet should not be chewed or crushed.(Same as: Protonix) Start Date: 07/18/15 Stop Date: 07/19/15 Status: Discontinuedracemic epinephrine 2.25% inhalation solution 0.5 mL, Route: NEB, Dosing Weight 75, kg, ONCE, STAT, Start date: 07/16/15 19:20 :00 CDT, Stop date: 07/16/15 19:20:00 CDT Start Date: 07/16/15 Stop Date: 07/16/15 Status: Completedracepinephrine 0.5 mL, Route: NEB, Dosing Weight 75, kg, ONCE, STAT, Start date: 07/16/15 17:54 :00 CDT, Stop date: 07/16/15 17:54:00 CDT Start Date: 07/16/15 Stop Date: 07/16/15 Status: CompletedRobitussin-AC oral syrup 5 ml, Route: PO, Drug Form: LIQ, Dosing Weight 77.6, kg, Q4H, PRN Cough/ Congestion, Start date: 07/17/15 11:59:00 CDT, Duration: 30 day, Stop date: 03/21 11:58:00 CDT Notes: (Same As: Robitussin AC) Start Date: 07/17/15 Stop Date: 07/19/15 Status: DiscontinuedRobitussin-AC oral syrup 5 mL, PO, Q4H, PRN Cough/Congestion, X 10 day, # 300 mL, 0 Refill(s) Start Date: 07/19/15 Stop Date: 07/29/15 Status: OrderedSaline Flush 0.9% 10 ml, Route: IVP, Drug Form: INJ, Dosing Weight 75, kg, PRN, PRN Line Flush, Start date: 07/16/15 21:26:00 CDT, Duration: 30 day, Stop date: 08/15/15 21:25: 00 CDT Notes: (Same as: BD Posiflush) Start Date: 07/16/15 Stop Date: 07/19/15 Status: DiscontinuedSaline Flush 0.9% 10 ml, Route: IVP, Drug Form: INJ, Dosing Weight 75, kg, Q12H, Start date: 07/16 9:00:00 CDT, Duration: 30 day, Stop date: 08/15/15 21:00:00 CDT Notes: (Same as: BD Posiflush) Start Date: 07/17/15 Stop Date: 07/19/15 Status: DiscontinuedSaline Flush 0.9% 10 mL, Route: IVP, Drug Form: INJ, Dosing Weight 75, kg, PRN, PRN Line Flush, Start date: 07/16/15 17:54:00 CDT, Duration: 30 day, Stop date: 08/15/15 17:53: 00 CDT Notes: (Same as: BD Posiflush) Start Date: 07/16/15 Stop Date: 07/16/15 Status: DeletedSEROquel 400 mg, 4 tab, Route: PO, Drug form: TAB, Daily, Dosing Weight 77.6, kg, Start date: 07/17/15 21:00:00 CDT, Duration: 30 day, Stop date: 08/15/15 21:00:00 CDT Notes: (Same as: SEROquel) Start Date: 07/17/15 Stop Date: 07/19/15 Status: Discontinuedsodium phosphate + Sodium Chloride 0.9% IV 250 mL 15 mmol, 5 mL, Route: IVPB, PRN, Dosing Weight 75, kg, PRN Abnormal Lab Result, Start date: 07/15/1620:26:00 CDT, Duration: 30 day, Stop date: 08/15/15 21:25: 00 CDT, FOR ICU USE ONLY Start Date: 07/16/15 Stop Date: 07/17/15 Status: Discontinuedsodium phosphate + Sodium Chloride 0.9% IV 250 mL 30 mmol, 10 mL, Route: IVPB, PRN, Dosing Weight 75, kg, PRN Abnormal Lab Result , Start date: 07/16/15 21:26:00 CDT, Duration: 30 day, Stop date: 08/15/15 21:25 :00 CDT, FOR ICU USE ONLY Start Date: 07/16/15 Stop Date: 07/17/15 Status: Discontinuedsodium phosphate + Sodium Chloride 0.9% IV 250 mL 45 mmol, 15 mL, Route: IVPB, PRN, Dosing Weight 75, kg, PRN Abnormal Lab Result , Start date: 07/16/15 21:26:00 CDT, Duration: 30 day, Stop date: 08/15/15 21:25 :00 CDT, FOR ICU USE ONLY Start Date: 07/16/15 Stop Date: 07/17/15 Status: DiscontinuedSolu-MEDROL 60 mg, 1.5 mL, Route: IV, Drug form: INJ, Q6H, Dosing Weight 77.6, kg, Start date: 07/17/15 12:00:00CDT, Duration: 30 day, Stop date: 08/16/15 6:00:00 CDT Notes: (Same as:Solu-MEDROL, A-Methapred) Start Date: 07/17/15 Stop Date: 07/18/15 Status: Discontinued Results ELECTROLYTES Most recent to oldest 1 2 3 [Reference Range]: Sodium Lvl [135-145 mEq/L] 140 mEq/L 138 mEq/L 138 mEq/L (07/19/15 2:45 AM) (07/18/15 2:56 AM) (07/17/15 2:59 AM) Potassium Lvl [3.5-5.1 4.0 mEq/L 4.7 mEq/L 4.5 mEq/L mEq/L] (07/19/15 2:45 AM) (07/18/15 2:56 AM) (07/17/15 2:59 AM) Chloride Lvl [95-109 mEq/L] 104 mEq/L 103 mEq/L 104 mEq/L (07/19/15 2:45 AM) (07/18/15 2:56 AM) (07/17/15 2:59 AM) CO2 [24-32 mEq/L] 28 mEq/L 26 mEq/L 27 mEq/L (07/19/15 2:45 AM) (07/18/15 2:56 AM) (07/17/15 2:59 AM) AGAP [10.0-20.0 mEq/L] 12.0 mEq/L 13.7 mEq/L 11.5 mEq/L (07/19/15 2:45 AM) (07/18/15 2:56 AM) (07/17/15 2:59 AM) CHEM PANEL Most recent to oldest 1 2 3 [Reference Range]: Creatinine Lvl [0.50-1.40 0.81 mg/dL 0.76 mg/dL 0.90 mg/dL mg/dL] (07/19/15 2:45 AM) (07/18/15 2:56 AM) (07/17/15 2:59 AM) eGFR 95 mL/min/1.73m2 1 101 mL/min/1.73m2 2 83 mL/min/1.73m2 3 *NA* *NA* *NA* (07/19/15 2:45 AM) (07/18/15 2:56 AM) (07/17/15 2:59 AM) BUN [7-22 mg/dL] 13 mg/dL 8 mg/dL 9 mg/dL (07/19/15 2:45 AM) (07/18/15 2:56 AM) (07/17/15 2:59 AM) B/C Ratio [6-25] 16 11 10 (07/19/15 2:45 AM) (07/18/15 2:56 AM) (07/17/15 2:59 AM) Glucose Lvl [70-99 mg/dL] 150 mg/dL 137 mg/dL 133 mg/dL *HI* *HI* *HI* (07/19/15 2:45 AM) (07/18/15 2:56 AM) (07/17/15 2:59 AM) Total Protein [6.4-8.4 7.1 g/dL 7.9 g/dL 7.5 g/dL g/dL] (07/19/15 2:45 AM) (07/18/15 2:56 AM) (07/17/15 2:59 AM) Albumin Lvl [3.5-5.0 g/dL] 3.3 g/dL 3.6 g/dL 3.5 g/dL *LOW* (07/18/15 2:56 AM) (07/17/15 2:59 AM) (07/19/15 2:45 AM) Globulin [2.0-4.0 g/dL] 3.8 g/dL 4.3 g/dL 4.0 g/dL (07/19/15 2:45 AM) *HI* (07/17/15 2:59 AM) (07/18/15 2:56 AM) A/G Ratio [0.7-1.6] 0.9 0.8 0.9 (07/19/15 2:45 AM) (07/18/15 2:56 AM) (07/17/15 2:59 AM) Calcium Lvl [8.5-10.5 9.0 mg/dL 9.6 mg/dL 9.3 mg/dL mg/dL] (07/19/15 2:45 AM) (07/18/15 2:56 AM) (07/17/15 2:59 AM) ALT [0-65 unit/L] 47 unit/L 36 unit/L 38 unit/L (07/19/15 2:45 AM) (07/18/15 2:56 AM) (07/17/15 2:59 AM) AST [0-37 unit/L] 25 unit/L 22 unit/L 20 unit/L (07/19/15 2:45 AM) (07/18/15 2:56 AM) (07/17/15 2:59 AM) Alk Phos [39-136 unit/L] 88 unit/L 95 unit/L 106 unit/L (07/19/15 2:45 AM) (07/18/15 2:56 AM) (07/17/15 2:59 AM) Bili Total [0.2-1.3 mg/dL] 0.2 mg/dL 0.5 mg/dL 0.4 mg/dL (07/19/15 2:45 AM) (07/18/15 2:56 AM) (07/17/15 2:59 AM) Bili Direct [0.0-0.3 mg/dL] 0.1 mg/dL (07/17/15 2:59 AM) 1Result Comment: The eGFR is calculated [...] eGFR should be multiplied by the estimated BMI.3Result Comment: The eGFR is calculated using the [...] eGFR should be multiplied by the estimated BMI.SPECIAL CHEMISTRY Most recent to oldest [Reference Range]: 1 2 3 Hgb A1C [<=5.6 %] 4.7 % (07/17/15 2:59 AM) ANEMIA STUDY Most recent to oldest [Reference Range]: 1 2 3 Iron [30-160 ug/dl] 18 ug/dl *LOW* (07/17/15 2:59 AM) Ferritin Lvl [5-204 ng/mL] 76 ng/mL (07/17/15 2:59 AM) % Satur Fe [12-57 %] 4 % *LOW* (07/17/15 2:59 AM) UIBC [110-370 ug/dl] 383 ug/dl *HI* (07/17/15 2:59 AM) TIBC [228-428 ug/dl] 401 ug/dl (07/17/15 2:59 AM) URINE AND STOOL Most recent to oldest [Reference Range]: 1 2 3 UA Turbidity [Clear] Clear Clear (07/17/15 12:41 AM) (07/16/15 8:33 PM) UA Color STRAW *NA* (07/17/15 12:41 AM) UA Color [Yellow] Yellow *NA* (07/16/15 8:33 PM) UA pH [5.0-8.0] 5.5 6.0 (07/17/15 12:41 AM) (07/16/15 8:33 PM) UA Spec Grav [<=1.030] <=1.005 *NA* (07/17/15 12:41 AM) UA Spec Grav [<=1.030] 1.010 (07/16/15 8:33 PM) UA Glucose [Negative mg/dL] 100 mg/dL >=1000 mg/dL *ABN* *ABN* (07/17/15 12:41 AM) (07/16/15 8:33 PM) UA Blood [Negative] Small Trace *ABN* *ABN* (07/17/15 12:41 AM) (07/16/15 8:33 PM) UA Ketones [Negative] Negative Trace *NA* *ABN* (07/17/15 12:41 AM) (07/16/15 8:33 PM) UA Protein [Negative] Negative Negative (07/17/15 12:41 AM) (07/16/15 8:33 PM) UA Urobilinogen [0.1-1.0 EU/dL] 0.2 EU/dL 0.2 EU/dL (07/17/15 12:41 AM) (07/16/15 8:33 PM) UA Bili [Negative] Negative Negative *NA* *NA* (07/17/15 12:41 AM) (07/16/15 8:33 PM) UA Leuk Est [Negative] Negative Negative (07/17/15 12:41 AM) (07/16/15 8:33 PM) UA Nitrite [Negative] Negative Negative (07/17/15 12:41 AM) (07/16/15 8:33 PM) UA WBC [None Seen /HPF] 0-2 /HPF 0-2 /HPF (07/17/15 12:41 AM) (07/16/15 8:33 PM) UA RBC [0-2 /HPF] 0-2 /HPF 0-2 /HPF (07/17/15 12:41 AM) (07/16/15 8:33 PM) UA Bacteria [None Seen /HPF] Occasional /HPF Few /HPF (07/17/15 12:41 AM) (07/16/15 8:33 PM) UA Sq Epi [Few /LPF] Few /LPF Moderate /LPF (07/17/15 12:41 AM) *ABN* (07/16/15 8:33 PM) IMMUNOLOGY Most recent to oldest [Reference Range]: 1 2 3 Prealbumin [18.0-45.0 mg/dL] 25.3 mg/dL (07/17/15 2:59 AM) HEMATOLOGY Most recent to oldest 1 2 3 [Reference Range]: WBC [3.7-10.4 K/CMM] 19.8 K/CMM 16.9 K/CMM 12.6 K/CMM *HI* *HI* *HI* (07/19/15 2:45 AM) (07/18/15 2:56 AM) (07/17/15 2:59 AM) RBC [4.20-5.40 M/CMM] 3.97 M/CMM 3.93 M/CMM 3.89 M/CMM *LOW* *LOW* *LOW* (07/19/15 2:45 AM) (07/18/15 2:56 AM) (07/17/15 2:59 AM) Hgb [12.0-16.0 g/dL] 11.7 g/dL 11.7 g/dL 11.5 g/dL *LOW* *LOW* *LOW* (07/19/15 2:45 AM) (07/18/15 2:56 AM) (07/17/15 2:59 AM) Hct [36.0-48.0 %] 35.7 % 35.5 % 34.9 % *LOW* *LOW* *LOW* (07/19/15 2:45 AM) (07/18/15 2:56 AM) (07/17/15 2:59 AM) MCV [80.0-98.0 fL] 89.9 fL 90.4 fL 89.7 fL (07/19/15 2:45 AM) (07/18/15 2:56 AM) (07/17/15 2:59 AM) MCH [27.0-31.0 pg] 29.4 pg 29.9 pg 29.6 pg (07/19/15 2:45 AM) (07/18/15 2:56 AM) (07/17/15 2:59 AM) MCHC [32.0-36.0 g/dL] 32.7 g/dL 33.1 g/dL 33.0 g/dL (07/19/15 2:45 AM) (07/18/15 2:56 AM) (07/17/15 2:59 AM) RDW [11.5-14.5 %] 14.1 % 14.8 % 14.1 % (07/19/15 2:45 AM) *HI* (07/17/15 2:59 AM) (07/18/15 2:56 AM) Platelet [133-450 K/CMM] 314 K/CMM 300 K/CMM 284 K/CMM (07/19/15 2:45 AM) (07/18/15 2:56 AM) (07/17/15 2:59 AM) MPV [7.4-10.4 fL] 8.8 fL 9.2 fL 8.5 fL (07/19/15 2:45 AM) (07/18/15 2:56 AM) (07/17/15 2:59 AM) Segs [45.0-75.0 %] 84.9 % 88.6 % 84.2 % *HI* *HI* *HI* (07/19/15 2:45 AM) (07/18/15 2:56 AM) (07/17/15 2:59 AM) Lymphocytes [20.0-40.0 %] 10.6 % 9.9 % 11.2 % *LOW* *LOW* *LOW* (07/19/15 2:45 AM) (07/18/15 2:56 AM) (07/17/15 2:59 AM) Monocytes [2.0-12.0 %] 4.5 % 1.4 % 4.4 % (07/19/15 2:45 AM) *LOW* (07/17/15 2:59 AM) (07/18/15 2:56 AM) Eosinophils [0.0-4.0 %] 0.2 % (07/16/15 6:02 PM) Basophils [0.0-1.0 %] 0.1 % 0.2 % 0.2 % (07/18/15 2:56 AM) (07/17/15 2:59 AM) (07/16/15 6:02 PM) Segs-Bands # [1.5-8.1 K/CMM] 16.8 K/CMM 15.0 K/CMM 10.6 K/CMM *HI* *HI* *HI* (07/19/15 2:45 AM) (07/18/15 2:56 AM) (07/17/15 2:59 AM) Lymphocytes # [1.0-5.5 2.1 K/CMM 1.7 K/CMM 1.4 K/CMM K/CMM] (07/19/15 2:45 AM) (07/18/15 2:56 AM) (07/17/15 2:59 AM) Monocytes # [0.0-0.8 K/CMM] 0.9 K/CMM 0.2 K/CMM 0.5 K/CMM *HI* (07/18/15 2:56 AM) (07/17/15 2:59 AM) (07/19/15 2:45 AM) Retic Auto [0.5-1.5 %] 1.0 % (07/17/15 2:59 AM) PT [12.0-14.7 seconds] 14.0 seconds (07/17/15 2:59 AM) INR [0.85-1.17] 1.05 (07/17/15 2:59 AM) PTT [22.9-35.8 seconds] 27.0 seconds (07/17/15 2:59 AM) BACTERIAL - SEROLOGY Most recent to oldest [Reference Range]: 1 2 3 MRSA by PCR Negative (07/16/15 11:44 PM) Immunizations Vaccine Date Refusal Reason influenza virus vaccine, inactivated 05/03/10 pneumococcal 23-valent vaccine 03/11/08 Procedures Procedure Date Related Diagnosis Body Site Arthroscopy of knee 06/11/15 Cervical spinal fusion Cholecystectomy Hand Hand repair1 Hysterectomy Knee replacement Nerve block Shoulder Thyroidectomy2 1thumb joint [id number] Social History Social History Type Response Substance [...] Days No; Reg Smoking Cessation Counseling No [id number] Assessment and Plan Extracted from: Title: Work and PT Excuse Author: Christian Pennington MD Date: 07/19/15 To whom it may concern, Please excuse patient Francoise Sanders from work or other obligations from 2015 through 07/24/2015. The patient was under my care for part of this time. Patient may return to work on 07/25/2015, unless otherwise indicated by primary care provider on an out patient basis. Current work restrictions include: [X] Release without any restrictions [ ] No heavy lifting greater than 10 lbs [ ] Light work load, until cleared by PCP Patient may also resume previous physical therapy on 07/25/2015. Thank you, Christian Pennington MD Hospitalist, [facility]
--- OUTSIDE RECORDS SUMMARY | 2017-11-26 11:34 | XMS REPORT | Summary of Care ---
:1980 Author Organization [facility] Address [address] [place], [place] [address]- Encounter [facility] Ronald(DAKOTAH) [id number] Date(s): 06/08/15 - 06/08/15 [facility] [address] [place] [id number]- Discharge Disposition: Home Attending Physician: Cesar Mercer MD Referring Physician: Cesar Mercer MD Vital Signs Most recent to oldest 1 2 3 [Reference Range]: Height 170.18 cm (06/07/15 10:29 AM) Temperature Oral [96.4-99.1 98.2 DegF DegF] (06/07/15 10:50 AM) Blood Pressure [90-140/60-90 121/80 mmHg 122/64 mmHg 132/65 mmHg mmHg] (06/08/15 11:45 AM) (06/08/15 11:30 AM) (06/08/15 11:15 AM) Respiratory Rate [14-20 BRMIN] 12 BRMIN 18 BRMIN 14 BRMIN *LOW* (06/08/15 11:30 AM) (06/08/15 11:15 AM) (06/08/15 11:45 AM) Peripheral Pulse Rate [60-100 97 bpm 98 bpm bpm] (06/08/15 8:00 AM) (06/07/15 10:50 AM) Weight 75 kg (06/07/15 10:29 AM) Body Mass Index 25.9 m2 (06/07/15 10:29 AM) Problem List Condition Effective Dates Status [...] attack(Confirmed) Resolved Vasovagal syncope(Confirmed) Active 1only when [id number] fx x 8 Allergies, Adverse Reactions, Alerts Substance Reaction Severity Status aspirin ANXIETY/INCREASED HEART RATE Active Food Nuts Active Food Soybean Active naproxen Aspirin Active ANXIETY Other Food Allergy Active Talwin HEAD ACHE AND N/V Active Zofran Active Medications acetaminophen (ANES) Route: IV, Drug form: INJ, ONCE, Stop date: 06/08/15 9:47:00 Start Date: 06/08/15 Stop Date: 06/08/15 Status: CompletedAdvil 200 mg oral tablet 400 mg=2 tab, PO, Q4H, PRN Pain, # 120 tab, 0 Refill(s) Start Date: 06/07/15 Stop Date: 06/17/15 Status: OrderedceFAZolin (ANES) Route: IV, Drug form: INJ, ONCE, Stop date: 06/08/15 9:32:00 Start Date: 06/08/15 Stop Date: 06/08/15 Status: Completeddexamethasone (ANES) Route: IV, Drug form: INJ, ONCE, Stop date: 06/08/15 9:32:00 Start Date: 06/08/15 Stop Date: 06/08/15 Status: Completedestradiol 2 mg oral tablet 2 mg=1 tab, PO, Daily, # 30 tab, 0 Refill(s) Start Date: 06/07/15 Status: Orderedfamotidine (ANES) Route: IV, Drug form: INJ, ONCE, Stop date: 06/08/15 9:32:00 Start Date: 06/08/15 Stop Date: 06/08/15 Status: CompletedfentaNYL (ANES) Route: IV, Drug form: INJ, ONCE, Stop date: 06/08/15 9:22:00 Start Date: 06/08/15 Stop Date: 06/08/15 Status: Completedflumazenil 0.2 mg, 2 mL, Route: IVP, Drug form: INJ, PRN, Dosing Weight 75, kg, PRN Benzodiazepine Reversal, Initial dose, Start date: 06/08/15 11:16:00, Duration: 30 day, Stop date: 07/08/15 12:15:00 Notes: (Same as: Romazicon) Start Date: 06/08/15 Stop Date: 06/08/15 Status: DiscontinuedhydrALAZINE 10 mg, 0.5 mL, Route: IVP, Drug form: INJ, Q20Min, Dosing Weight 75, kg, PRN Elevated BP, Start date: 06/08/15 11:16:00, Duration: 2 doses or times, Stop date: Limited # of times Notes: (Same as: Apresoline)Push over 5 minutes Start Date: 06/08/15 Stop Date: 06/08/15 Status: Discontinuedhydromorphone (ANES) Route: IV, Drug form: INJ, ONCE, Stop date: 06/08/15 9:57:00 Start Date: 06/08/15 Stop Date: 06/08/15 Status: CompletedLactated Ringers Injection IV (ANES) (ANES) Route: IV, Total Volume: 1,000, Start date: 06/08/15 8:39:00, Stop date: 9:39:00 Start Date: 06/08/15 Stop Date: 06/08/15 Status: CompletedLactated Ringers Injection IV 1,000 mL 1,000 mL, Rate: 25 ml/hr, Infuse over: 40 hr, Route: IV, Dosing Weight 75 kg, Total Volume: 1,000, Start date: 06/08/15 8:20:00, Duration: 30 day, Stop date: 07/08/15 8:19:00 Start Date: 06/08/15 Stop Date: 06/08/15 Status: DiscontinuedlamoTRIgine 100 mg oral tablet 100 mg=1 tab, PO, BID, # 60 tab, 0 Refill(s) Start Date: 06/07/15 Status: Orderedlidocaine (ANES) Route: IV, Drug form: INJ, ONCE, Stop date: 06/08/15 9:17:00 Start Date: 06/08/15 Stop Date: 06/08/15 Status: Completedmeperidine 12.5 mg, 0.5 mL, Route: IVP, Drug form: INJ, Q30Min, Dosing Weight 75, kg, PRN Other -See Comment, For shivering, Start date: 06/08/15 11:16:00, Duration: 2 doses or times, Stop date: Limited # of times Notes: (Same as: Demerol) "Use Precaution in Elderly, Seizure disorders, and Renal impairment" Start Date: 06/08/15 Stop Date: 06/08/15 Status: Discontinuedmetoprolol 1 mg, 1 mL, Route: IVP, Drug form: INJ, Q5Min, Dosing Weight 75, kg, PRN Other - See Comment, Start date: 06/08/15 11:16:00, Duration: 5 doses or times, Stop date: Limited # of times Notes: (Same as: Lopressor)Push over 2 minutes Start Date: 06/08/15 Stop Date: 06/08/15 Status: Discontinuedmidazolam (ANES) Route: IV, Drug form: SOLN, ONCE, Stop date: 06/08/15 9:17:00 Start Date: 06/08/15 Stop Date: 06/08/15 Status: Completedmorphine Sulfate 4 mg, 1 mL, Route: IVP, Drug form: INJ, Q5Min, Dosing Weight 75, kg, PRN Pain Score 7-10, Start date: 06/08/15 11:16:00, Duration: 3 doses or times, Stop date : Limited # of times Notes: (Same as:MORPhine Sulfate) Start Date: 06/08/15 Stop Date: 06/08/15 Status: Discontinuednaloxone 0.04 mg, 0.1 mL, Route: IVP, Drug form: INJ, Q2MIN, Dosing Weight 75, kg, PRN Narcotic Reversal, Start date: 06/08/15 11:16:00, Duration: 8 doses or times, Stop date: Limited # of times Notes: Same as Narcan Start Date: 06/08/15 Stop Date: 06/08/15 Status: DiscontinuedNorco 10/325 oral tablet 1-2 tab, PO, Q6H, PRN Pain, X 5 day, # 30 tab, 0 Refill(s) Start Date: 06/08/15 Stop Date: 06/13/15 Status: Orderedondansetron 4 mg, 2 mL, Route: IVP, Drug form: INJ, ONCE, Dosing Weight 75, kg, PRN Nausea & amp; Vomiting, Startdate: 06/08/15 11:16:00 Notes: (Same as: Iggy) MEDICATION WASTE Product Size: 4 mgProduct Wasted: ___ mg Start Date: 06/08/15 Stop Date: 06/08/15 Status: Discontinuedondansetron (ANES) Route: IV, Drug form: INJ, ONCE, Stop date: 06/08/15 9:32:00 Start Date: 06/08/15 Stop Date: 06/08/15 Status: CompletedoxyCODONE 5 mg, 1 tab, Route: PO, Drug form: TAB, Q4H, Dosing Weight 75, kg, PRN Pain Score 4-6, Start date: 06/08/15 11:16:00, Duration: 30 day, Stop date: 07/08/15 11:15:00 Notes: (Same as: Roxicodone) Start Date: 06/08/15 Stop Date: 06/08/15 Status: Discontinuedpromethazine (ANES) Route: IV, Drug form: INJ, ONCE, Stop date: 06/08/15 10:14:00 Start Date: 06/08/15 Stop Date: 06/08/15 Status: Completedpropofol (ANES) Route: IV, Drug form: INJ, ONCE, Stop date: 06/08/15 9:27:00 Start Date: 06/08/15 Stop Date: 06/08/15 Status: CompletedTylenol Extra Strength 500 mg oral tablet 1,000 mg=2 tab, PO, Q4H, PRN Pain, # 120 tab, 0 Refill(s) Start Date: 06/07/15 Stop Date: 06/17/15 Status: Orderedvancomycin (ANES) Route: IV, Drug form: INJ, ONCE, Stop date: 06/08/15 9:32:00 Start Date: 06/08/15 Stop Date: 06/08/15 Status: Deletedvancomycin (ANES) (ANES) Route: IV, Drug form: INJ, Start date: 06/08/15 8:47:00, Stop date: 06/08/15 9: 47:00 Start Date: 06/08/15 Stop Date: 06/08/15 Status: DeletedXanax 1 mg oral tablet 1 mg=1 tab, PO, TID, PRN Anxiety, 0 Refill(s) Start Date: 06/07/15 Stop Date: 06/14/15 Status: Ordered Results ELECTROLYTES Most recent to oldest [Reference Range]: 1 Sodium Lvl [135-145 mEq/L] 141 mEq/L (06/07/15 10:42 AM) Potassium Lvl [3.5-5.1 mEq/L] 4.2 mEq/L (06/07/15 10:42 AM) Chloride Lvl [95-109 mEq/L] 106 mEq/L (06/07/15 10:42 AM) CO2 [24-32 mEq/L] 26 mEq/L (06/07/15 10:42 AM) AGAP [10.0-20.0 mEq/L] 13.2 mEq/L (06/07/15 10:42 AM) CHEM PANEL Most recent to oldest [Reference Range]: 1 Creatinine Lvl [0.50-1.40 mg/dL] 0.78 mg/dL (06/07/15 10:42 AM) eGFR 98 mL/min/1.73m2 1 *NA* (06/07/15 10:42 AM) BUN [7-22 mg/dL] 9 mg/dL (06/07/15 10:42 AM) B/C Ratio [6-25] 12 (06/07/15 10:42 AM) Glucose Lvl [70-99 mg/dL] 86 mg/dL (06/07/15 10:42 AM) Total Protein [6.4-8.4 g/dL] 7.5 g/dL (06/07/15 10:42 AM) Albumin Lvl [3.5-5.0 g/dL] 3.8 g/dL (06/07/15 10:42 AM) Globulin [2.0-4.0 g/dL] 3.7 g/dL (06/07/15 10:42 AM) A/G Ratio [0.7-1.6] 1.0 (06/07/15 10:42 AM) Calcium Lvl [8.5-10.5 mg/dL] 8.8 mg/dL (06/07/15 10:42 AM) ALT [0-65 unit/L] 38 unit/L (06/07/15 10:42 AM) AST [0-37 unit/L] 19 unit/L (06/07/15 10:42 AM) Alk Phos [39-136 unit/L] 91 unit/L (06/07/15 10:42 AM) Bili Total [0.2-1.3 mg/dL] 0.5 mg/dL (06/07/15 10:42 AM) 1Result Comment: The eGFR is calculated [...] eGFR should be multiplied by the estimated BMI.URINE AND STOOL Most recent to oldest [Reference Range]: 1 UA Turbidity [Clear] Clear (06/07/15 10:42 AM) UA Color [Yellow] Yellow *NA* (06/07/15 10:42 AM) UA pH [5.0-8.0] 6.0 (06/07/15 10:42 AM) UA Spec Grav [<=1.030] 1.010 (06/07/15 10:42 AM) UA Glucose [Negative] Negative (06/07/15 10:42 AM) UA Blood [Negative] Trace *ABN* (06/07/15 10:42 AM) UA Ketones [Negative] Negative *NA* (06/07/15 10:42 AM) UA Protein [Negative] Negative (06/07/15 10:42 AM) UA Urobilinogen [0.1-1.0 EU/dL] 0.2 EU/dL (06/07/15 10:42 AM) UA Bili [Negative] Negative *NA* (06/07/15 10:42 AM) UA Leuk Est [Negative] Negative (06/07/15 10:42 AM) UA Nitrite [Negative] Negative (06/07/15 10:42 AM) UA WBC [None Seen /HPF] 0-2 /HPF (06/07/15 10:42 AM) UA RBC [0-2 /HPF] 0-2 /HPF (06/07/15 10:42 AM) UA Bacteria [None Seen /HPF] Occasional /HPF (06/07/15 10:42 AM) UA Sq Epi [Few /LPF] Rare /LPF (06/07/15 10:42 AM) UA Mucus [None Seen] None Seen (06/07/15 10:42 AM) Micro? Performed (06/07/15 10:42 AM) HEMATOLOGY Most recent to oldest [Reference Range]: 1 WBC [3.7-10.4 K/CMM] 8.4 K/CMM (06/07/15 10:42 AM) RBC [4.20-5.40 M/CMM] 4.19 M/CMM *LOW* (06/07/15 10:42 AM) Hgb [12.0-16.0 g/dL] 12.3 g/dL (06/07/15 10:42 AM) Hct [36.0-48.0 %] 38.0 % (06/07/15 10:42 AM) MCV [80.0-98.0 fL] 90.7 fL (06/07/15 10:42 AM) MCH [27.0-31.0 pg] 29.4 pg (06/07/15 10:42 AM) MCHC [32.0-36.0 g/dL] 32.4 g/dL (06/07/15 10:42 AM) RDW [11.5-14.5 %] 13.3 % (06/07/15 10:42 AM) Platelet [133-450 K/CMM] 284 K/CMM (06/07/15 10:42 AM) MPV [7.4-10.4 fL] 8.9 fL (06/07/15 10:42 AM) Segs [45.0-75.0 %] 54.7 % (06/07/15 10:42 AM) Lymphocytes [20.0-40.0 %] 34.7 % (06/07/15 10:42 AM) Monocytes [2.0-12.0 %] 8.2 % (06/07/15 10:42 AM) Eosinophils [0.0-4.0 %] 1.8 % (06/07/15 10:42 AM) Basophils [0.0-1.0 %] 0.6 % (06/07/15 10:42 AM) Segs-Bands # [1.5-8.1 K/CMM] 4.6 K/CMM (06/07/15 10:42 AM) Lymphocytes # [1.0-5.5 K/CMM] 2.9 K/CMM (06/07/15 10:42 AM) Monocytes # [0.0-0.8 K/CMM] 0.7 K/CMM (06/07/15 10:42 AM) Eosinophils # [0.0-0.5 K/CMM] 0.1 K/CMM (06/07/15 10:42 AM) PT [12.0-14.7 seconds] 14.2 seconds (06/07/15 10:42 AM) INR [0.85-1.17] 1.07 (06/07/15 10:42 AM) PTT [22.9-35.8 seconds] 30.5 seconds (06/07/15 10:42 AM) BACTERIAL - SEROLOGY Most recent to oldest [Reference Range]: 1 MRSA by PCR Negative (06/07/15 10:42 AM) Immunizations Vaccine Date Refusal Reason influenza virus vaccine, inactivated 05/03/10 pneumococcal 23-valent vaccine 03/11/08 Procedures Procedure Date Related Diagnosis Body Site Cervical spinal fusion Cholecystectomy Hand Hand repair1 Hysterectomy Nerve block Shoulder Thyroidectomy2 1thumb joint [id number] Social History Social History Type Response Substance [...] Days No; Reg Smoking Cessation Counseling No [id number] Assessment and Plan No data available for this section
--- OUTSIDE RECORDS SUMMARY | 2017-11-26 11:34 | XMS REPORT | Summary of Care ---
:1980 Author Organization [facility] Encounter HQ Ronald(FIN) [id number] Date(s): 06/21/15 - 07/20/15 [facility] Discharge Disposition: Home Attending Physician: Cesar Mercer MD Vital Signs No data available for [...] attack(Confirmed) Resolved Vasovagal syncope(Confirmed) Active 1only when [id number] fx x 8 Allergies, Adverse Reactions, Alerts Substance Reaction Severity Status aspirin ANXIETY/INCREASED HEART RATE Active Food Nuts1 Active naproxen Aspirin Active ANXIETY Other Food Allergy2 Active Talwin HEAD ACHE AND N/V Active Zofran Active 1severe all [id number] and balsamic vinegar Medications No data available for this section Results No data available for this section Immunizations Vaccine Date Refusal Reason influenza virus vaccine, inactivated 05/03/10 pneumococcal 23-valent vaccine 03/11/08 Procedures Procedure Date Related Diagnosis Body Site Arthroscopy of knee 06/11/15 Cervical spinal fusion Cholecystectomy Hand Hand repair1 Hysterectomy Knee replacement Nerve block Shoulder Thyroidectomy2 1thumb joint [id number] Social History Social History Type Response Substance [...] Days No; Reg Smoking Cessation Counseling No [id number] Assessment and Plan No data available for this section
--- OUTSIDE RECORDS SUMMARY | 2017-11-26 11:35 | XMS REPORT | Summary of Care ---
:1980 Author Organization [facility] [place] Address [address], [place] [address]- Encounter HQ Deandrantr_sarbjit(FIN) [id number] Date(s): 06/04/16 - 06/04/16 [facility] [address], [address] [place] [address]- [phone] Discharge Disposition: Home or Self Care Attending Physician: Micha Naranjo DO Vital Signs No data available for this [...] attack(Confirmed) Resolved Vasovagal syncope(Confirmed) Active 1only when [id number] fx x 8 Allergies, Adverse Reactions, Alerts Substance Reaction Severity Status aspirin ANXIETY/INCREASED HEART RATE Active Food Nuts1 Active naproxen Aspirin Active ANXIETY Other Food Allergy2 Active Talwin HEAD ACHE AND N/V Active Zofran Active 1severe all [id number] and balsamic vinegar Medications No data available for this section Results No data available for this section Immunizations Given and Recorded Vaccine Date Status Refusal Reason influenza virus vaccine, inactivated 05/03/10 Given pneumococcal 23-valent vaccine 03/11/08 Given Procedures Procedure Date Related Diagnosis Body Site Arthroscopy of knee 06/11/15 Cervical spinal fusion Cholecystectomy Hand Hand repair1 Hysterectomy Nerve block Shoulder Thyroidectomy2 1thumb joint [id number] Social History Social History Type Response Substance Abuse Use: None.1 Alcohol Past, Type Wine. Frequency: 1-2 times per month. Started age 20 Years. Previous treatment: None. Alcohol use interferes with work or home: No. Drinks more than intended: No. Others hurt by drinking: No. Ready to change: No. Household alcohol concerns: No.2 Smoking Status Never smoker; Exposure to Tobacco Smoke None; Cigarette Smoking Last 365 Days No; Reg Smoking Cessation Counseling No [id number] Assessment and Plan No data available for this section
--- OUTSIDE RECORDS SUMMARY | 2017-11-26 11:35 | XMS REPORT | Summary of Care ---
:1980 Author Organization [facility] Address [address], [place] [address]- Encounter HQ Ronald(FIN) [id number] Date(s): 08/28/15 - 08/28/15 [address] [place] [address]- Discharge Disposition: Against Medical Advise Attending Physician: Corbin Can MD Vital Signs Most recent to oldest [Reference Range]: 1 Height 170.18 cm (08/28/15 2:42 PM) Temperature Oral [96.4-99.1 DegF] 98.3 DegF (08/28/15 2:42 PM) Blood Pressure [90-140/60-90 mmHg] 152/93 mmHg *HI* (08/28/15 2:42 PM) Respiratory Rate [14-20 BRMIN] 24 BRMIN *HI* (08/28/15 2:42 PM) Peripheral Pulse Rate [60-100 bpm] 100 bpm (08/28/15 2:42 PM) Weight 78.636 kg (08/28/15 2:42 PM) Body Mass Index 27.15 m2 (08/28/15 2:42 PM) Problem List Condition Effective Dates Status [...] attack(Confirmed) Resolved Vasovagal syncope(Confirmed) Active 1only when [id number] fx x 8 Allergies, Adverse Reactions, Alerts Substance Reaction Severity Status aspirin ANXIETY/INCREASED HEART RATE Active Food Nuts1 Active naproxen Aspirin Active ANXIETY Other Food Allergy2 Active Talwin HEAD ACHE AND N/V Active Zofran Active 1severe all [id number] and balsamic vinegar Medications No data available for this section Results No data available for this section Immunizations Vaccine Date Refusal Reason influenza virus vaccine, inactivated 05/03/10 pneumococcal 23-valent vaccine 03/11/08 Procedures Procedure Date Related Diagnosis Body Site Arthroscopy of knee 06/11/15 Cervical spinal fusion Cholecystectomy Hand Hand repair1 Hysterectomy Nerve block Shoulder Thyroidectomy2 1thumb joint [id number] Social History Social History Type Response Substance [...] Days No; Reg Smoking Cessation Counseling No [id number] Assessment and Plan No data available for this section
--- OUTSIDE RECORDS SUMMARY | 2017-11-26 11:35 | XMS REPORT | Summary of Care ---
:1980 Author Organization [facility] Address [facility] [place], [place] [address]- Encounter HQ Ronald(FIN) [id number] Date(s): 04/15/16 - 04/15/[address] [address]- Discharge Diagnosis: Acute anxiety Discharge Diagnosis: Acute chest pain Discharge Disposition: Home or Self Care Attending Physician: Robert Fleming MD Vital Signs Most recent to oldest [Reference Range]: 1 2 Height 170.18 cm (04/15/16 9:44 AM) Temperature Oral [96.4-99.1 DegF] 98.3 DegF 98.6 DegF (04/15/16 1:32 PM) (04/15/16 9:44 AM) Blood Pressure [90-140/60-90 mmHg] 144/77 mmHg 142/88 mmHg *HI* *HI* (04/15/16 1:32 PM) (04/15/16 9:44 AM) Respiratory Rate [14-20 BRMIN] 18 BRMIN 18 BRMIN (04/15/16 1:32 PM) (04/15/16 9:44 AM) Peripheral Pulse Rate [60-100 bpm] 82 bpm 84 bpm (04/15/16 1:32 PM) (04/15/16 9:44 AM) Weight 74.091 kg (04/15/16 9:44 AM) Body Mass Index 25.58 m2 (04/15/16 9:44 AM) Problem List Condition Effective Dates Status [...] attack(Confirmed) Resolved Vasovagal syncope(Confirmed) Active 1only when [id number] fx x 8 Allergies, Adverse Reactions, Alerts Substance Reaction Severity Status aspirin ANXIETY/INCREASED HEART RATE Active Food Nuts1 Active naproxen Aspirin Active ANXIETY Other Food Allergy2 Active Talwin HEAD ACHE AND N/V Active Zofran Active 1severe all [id number] and balsamic vinegar Medications Ativan 1 mg, 1 tab, Route: PO, Drug form: TAB, ONCE, Dosing Weight 74.091, kg, Priority : STAT, Start date: 04/15/16 12:03: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, Stop date: 04/15/16 12:03: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 Notes: (Same as: Ativan) Start Date: 04/15/16 Stop Date: 04/15/16 Status: Completed Results ELECTROLYTES Most recent to oldest [Reference Range]: 1 Sodium Lvl [135-145 mEq/L] 141 mEq/L (04/15/16 12:51 PM) Potassium Lvl [3.5-5.1 mEq/L] 4.1 mEq/L (04/15/16 12:51 PM) Chloride Lvl [95-109 mEq/L] 104 mEq/L (04/15/16 12:51 PM) CO2 [24-32 mEq/L] 30 mEq/L (04/15/16 12:51 PM) AGAP [10.0-20.0 mEq/L] 11.1 mEq/L (04/15/16 12:51 PM) CHEM PANEL Most recent to oldest [Reference Range]: 1 Creatinine Lvl [0.50-1.40 mg/dL] 0.67 mg/dL (04/15/16 12:51 PM) eGFR 113 mL/min/1.73m2 1 *NA* (04/15/16 12:51 PM) BUN [7-22 mg/dL] 5 mg/dL *LOW* (04/15/16 12:51 PM) Glucose Lvl [70-99 mg/dL] 100 mg/dL *HI* (04/15/16 12:51 PM) Calcium Lvl [8.5-10.5 mg/dL] 9.0 mg/dL (04/15/16 12:51 PM) 1Result Comment: The eGFR is calculated [...] eGFR should be multiplied by the estimated BMI.CARDIAC ENZYMES Most recent to oldest [Reference Range]: 1 Troponin-I [0.00-0.40 ng/mL] <0.02 ng/mL (04/15/16 12:51 PM) ENDOCRINOLOGY Most recent to oldest [Reference Range]: 1 hCG Tot 2 mIU/mL *NA* (04/15/16 12:51 PM) HEMATOLOGY Most recent to oldest [Reference Range]: 1 WBC [3.7-10.4 K/CMM] 10.0 K/CMM (04/15/16 12:13 PM) RBC [4.20-5.40 M/CMM] 4.39 M/CMM (04/15/16 12:13 PM) Hgb [12.0-16.0 g/dL] 12.8 g/dL (04/15/16 12:13 PM) Hct [36.0-48.0 %] 38.7 % (04/15/16 12:13 PM) MCV [80.0-98.0 fL] 88.2 fL (04/15/16 12:13 PM) MCH [27.0-31.0 pg] 29.1 pg (04/15/16 12:13 PM) MCHC [32.0-36.0 g/dL] 33.0 g/dL (04/15/16 12:13 PM) RDW [11.5-14.5 %] 14.0 % (04/15/16 12:13 PM) Platelet [133-450 K/CMM] 340 K/CMM (04/15/16 12:13 PM) MPV [7.4-10.4 fL] 9.6 fL (04/15/16 12:13 PM) Segs [45.0-75.0 %] 70.4 % (04/15/16 12:13 PM) Lymphocytes [20.0-40.0 %] 23.9 % (04/15/16 12:13 PM) Monocytes [2.0-12.0 %] 4.5 % (04/15/16 12:13 PM) Eosinophils [0.0-4.0 %] 0.8 % (04/15/16 12:13 PM) Basophils [0.0-1.0 %] 0.4 % (04/15/16 12:13 PM) Segs-Bands # [1.5-8.1 K/CMM] 7.0 K/CMM (04/15/16 12:13 PM) Lymphocytes # [1.0-5.5 K/CMM] 2.4 K/CMM (04/15/16 12:13 PM) Monocytes # [0.0-0.8 K/CMM] 0.4 K/CMM (04/15/16 12:13 PM) Eosinophils # [0.0-0.5 K/CMM] 0.1 K/CMM (04/15/16 12:13 PM) Basophils # [0.0-0.2 K/CMM] 0.0 K/CMM (04/15/16 12:13 PM) Immunizations Given and Recorded Vaccine Date Status Refusal Reason influenza virus vaccine, inactivated 05/03/10 Given pneumococcal 23-valent vaccine 03/11/08 Given Procedures Procedure Date Related Diagnosis Body Site Arthroscopy of knee 06/11/15 Cervical spinal fusion Cholecystectomy Hand Hand repair1 Hysterectomy Nerve block Shoulder Thyroidectomy2 1thumb joint [id number] Social History Social History Type Response Substance [...] Days No; Reg Smoking Cessation Counseling No [id number] Assessment and Plan No data available for this section
--- OUTSIDE RECORDS SUMMARY | 2017-11-26 11:35 | XMS REPORT | Summary of Care ---
:1980 Author Organization [facility] Encounter HQ Otiliar_sarbjit(FIN) [id number] Date(s): 09/10/15 - 10/09/15 [facility] Discharge Disposition: Home Attending Physician: Cesar Singer MD Vital Signs No data available for [...] attack(Confirmed) Resolved Vasovagal syncope(Confirmed) Active 1only when saek1stioi fx x 8 Allergies, Adverse Reactions, Alerts Substance Reaction Severity Status aspirin ANXIETY/INCREASED HEART RATE Active Food Nuts1 Active naproxen Aspirin Active ANXIETY Other Food Allergy2 Active Talwin HEAD ACHE AND N/V Active Zofran Active 1severe all [id number] and balsamic vinegar Medications No data available for this section Results No data available for this section Immunizations Given and Recorded Vaccine Date Status Refusal Reason influenza virus vaccine, inactivated 05/03/10 Given pneumococcal 23-valent vaccine 03/11/08 Given Procedures Procedure Date Related Diagnosis Body Site Arthroscopy of knee 06/11/15 Cervical spinal fusion Cholecystectomy Hand Hand repair1 Hysterectomy Nerve block Shoulder Thyroidectomy2 1thumb joint [id number] Social History Social History Type Response Substance [...] Days No; Reg Smoking Cessation Counseling No [id number] Assessment and Plan No data available for this section
--- OUTSIDE RECORDS SUMMARY | 2017-11-26 11:35 | XMS REPORT | Summary of Care ---
:1980 Author Organization [facility] Address [address] [place] [address]- Encounter HQ Ronald(FIN) [id number] Date(s): 11/02/15 - 11/02/15 [facility] [address] [place] [phone] Discharge Diagnosis: Acute allergic reaction Discharge Disposition: Home or Self Care Attending Physician: Otf Payne MD Vital Signs Most recent to oldest 1 2 3 [Reference Range]: Height 162.56 cm (11/02/15 4:41 PM) Temperature Oral [96.4-99.1 98.6 DegF DegF] (11/02/15 4:41 PM) Blood Pressure [90-140/60-90 131/67 mmHg 136/69 mmHg 126/64 mmHg mmHg] (11/02/15 10:58 PM) (11/02/15 8:00 PM) (11/02/15 7:00 PM) Respiratory Rate [14-20 BRMIN] 17 BRMIN 17 BRMIN 15 BRMIN (11/02/15 10:58 PM) (11/02/15 8:00 PM) (11/02/15 7:00 PM) Peripheral Pulse Rate [60-100 109 bpm bpm] *HI* (11/02/15 4:41 PM) Weight 83.636 kg (11/02/15 4:41 PM) Body Mass Index 31.65 m2 (11/02/15 4:41 PM) Problem List Condition Effective Dates Status [...] attack(Confirmed) Resolved Vasovagal syncope(Confirmed) Active 1only when [id number] fx x 8 Allergies, Adverse Reactions, Alerts Substance Reaction Severity Status aspirin ANXIETY/INCREASED HEART RATE Active Food Nuts1 Active naproxen Aspirin Active ANXIETY Other Food Allergy2 Active Talwin HEAD ACHE AND N/V Active Zofran Active 1severe all itvx7wboes and balsamic vinegar Medications Benadryl 25 mg, Route: IVP, ONCE, Dosing Weight 78.636, kg, Priority: STAT, Start date: 11/02/15 16:45:00 CDT, Stop date: 11/02/15 16:45:00 CDT Start Date: 11/02/15 Stop Date: 11/02/15 Status: Completeddexamethasone 10 mg, Route: IVP, ONCE, Dosing Weight 78.636, kg, Priority: STAT, Start date: 11/02/15 16:44:00 CDT, Stop date: 11/02/15 16:44:00 CDT Start Date: 11/02/15 Stop Date: 11/02/15 Status: CompletedDuoNeb inhalation solution 3 ml, Route: NEB, Drug Form: SOLN, Dosing Weight 83.636, kg, PRN, PRN Respiratory Protocol, Start date: 11/02/15 16:49:00 CDT, Duration: 30 day, Stop date: 12/02/15 16:48:00 CDT Notes: (Same as: Duoneb) Start Date: 11/02/15 Stop Date: 11/03/15 Status: DiscontinuedEpiPen Auto-Injector 0.3 mg injectable kit 0.3 mg, IM, ONCE, # 1 kit, 0 Refill(s) Start Date: 11/02/15 Status: Orderedmetoclopramide 10 mg, Route: IVP, Drug form: INJ, ONCE, Dosing Weight 83.636, kg, Priority: STAT, Start date: 11/02/15 18:54:00 CDT, Stop date: 11/02/15 18:54:00 CDT Start Date: 11/02/15 Stop Date: 11/02/15 Status: CompletedNorco 5/325 oral tablet 1 tab, Route: PO, Drug Form: TAB, Dosing Weight 83.636, kg, ONCE, STAT, Start date: 11/02/15 21:50:00 CDT, Stop date: 11/02/15 21:50:00 CDT Notes: (Same as: [place] 325/5) Do not exceed 4gm/day of acetaminophen. Start Date: 11/02/15 Stop Date: 11/02/15 Status: CompletedNS (Bolus) IV 1,000 mL, 1,000 ml/hr, Infuse Over: 1 hr, Route: IV, 1,000, Drug form: INJ, ONCE , Priority: STAT, Dosing Weight 83.636 kg, Start date: 11/02/15 20:35:00 CDT, Duration: 1 doses or times, Stop date: 11/02/15 20:35:00 CDT Start Date: 11/02/15 Stop Date: 11/02/15 Status: CompletedNS (Bolus) IV 1,000 mL, 1,000 ml/hr, Infuse Over: 1 hr, Route: IV, ONCE, Priority: STAT, Dosing Weight 78.636 kg, Start date: 11/02/15 16:44:00 CDT, Duration: 1 doses or times, Stop date: 11/02/15 16:44:00 CDT Start Date: 11/02/15 Stop Date: 11/02/15 Status: CompletedPepcid 20 mg, Route: IV, ONCE, Dosing Weight 78.636, kg, Start date: 11/02/15 16:45:00 CDT, Stop date: 11/02/15 16:45:00 CDT Start Date: 11/02/15 Stop Date: 11/02/15 Status: Completedpotassium chloride 20 mEq/15 mL oral liquid 20 mEq, 15 mL, Route: PO, Drug form: LIQ, ONCE, Dosing Weight 83.636, kg, Priority: STAT, Start date: 11/02/15 20:44:00 CDT, Stop date: 11/02/15 20:44:00 CDT Notes: (Same as: Potassium Chloride) Start Date: 11/02/15 Stop Date: 11/02/15 Status: CompletedpredniSONE 50 mg oral tablet 50 mg=1 tab, PO, Daily, X 5 day, # 5 tab, 0 Refill(s) Start Date: 11/02/15 Stop Date: 11/07/15 Status: OrderedSaline Flush 0.9% 10 mL, Route: IVP, Drug Form: INJ, Dosing Weight 83.636, kg, PRN, PRN Line Flush , Start date: 11/02/15 20:02:00 CDT, Duration: 30 day, Stop date: 12/02/15 20:01 :00 CDT Notes: preservative free. Start Date: 11/02/15 Stop Date: 11/03/15 Status: Discontinued Results ELECTROLYTES Most recent to oldest [Reference Range]: 1 Sodium Lvl [135-145 mEq/L] 139 mEq/L (11/02/15 8:00 PM) Potassium Lvl [3.5-5.1 mEq/L] 3.2 mEq/L *LOW* (11/02/15 8:00 PM) Chloride Lvl [95-109 mEq/L] 104 mEq/L (11/02/15 8:00 PM) CO2 [24-32 mEq/L] 25 mEq/L (11/02/15 8:00 PM) AGAP [10.0-20.0 mEq/L] 13.2 mEq/L (11/02/15 8:00 PM) CHEM PANEL Most recent to oldest [Reference Range]: 1 Creatinine Lvl [0.50-1.40 mg/dL] 0.76 mg/dL (11/02/15 8:00 PM) eGFR 101 mL/min/1.73m2 1 *NA* (11/02/15 8:00 PM) BUN [7-22 mg/dL] 6 mg/dL *LOW* (11/02/15 8:00 PM) B/C Ratio [6-25] 8 (11/02/15 8:00 PM) Glucose Lvl [70-99 mg/dL] 129 mg/dL *HI* (11/02/15 8:00 PM) Total Protein [6.4-8.4 g/dL] 6.2 g/dL *LOW* (11/02/15 8:00 PM) Albumin Lvl [3.5-5.0 g/dL] 3.1 g/dL *LOW* (11/02/15 8:00 PM) Globulin [2.0-4.0 g/dL] 3.1 g/dL (11/02/15 8:00 PM) A/G Ratio [0.7-1.6] 1.0 (11/02/15 8:00 PM) Calcium Lvl [8.5-10.5 mg/dL] 8.0 mg/dL *LOW* (11/02/15 8:00 PM) ALT [0-65 unit/L] 47 unit/L (11/02/15 8:00 PM) AST [0-37 unit/L] 26 unit/L (11/02/15 8:00 PM) Alk Phos [39-136 unit/L] 92 unit/L (11/02/15 8:00 PM) Bili Total [0.2-1.3 mg/dL] 0.2 mg/dL (11/02/15 8:00 PM) 1Result Comment: The eGFR is calculated [...] [Reference Range]: 1 Total CK [12-191 unit/L] 82 unit/L (11/02/15 8:00 PM) CK MB [0.5-3.6 ng/mL] 1.2 ng/mL (11/02/15 8:00 PM) CK MB Index [0.0-2.5] 1.5 (11/02/15 8:00 PM) Troponin-I [0.00-0.40 ng/mL] <0.02 ng/mL (11/02/15 8:00 PM) ENDOCRINOLOGY Most recent to oldest [Reference Range]: 1 S Preg [Negative] Negative *NA* (11/02/15 8:00 PM) URINE AND STOOL Most recent to oldest [Reference Range]: 1 UA Turbidity [Clear] Clear (11/02/15 8:34 PM) UA Color [Yellow] Yellow *NA* (11/02/15 8:34 PM) UA pH [5.0-8.0] 6.0 (11/02/15 8:34 PM) UA Spec Grav [<=1.030] <=1.005 *NA* (11/02/15 8:34 PM) UA Glucose [Negative] Negative (11/02/15 8:34 PM) UA Blood [Negative] Negative (11/02/15 8:34 PM) UA Ketones [Negative] Negative *NA* (11/02/15 8:34 PM) UA Protein [Negative] Negative (11/02/15 8:34 PM) UA Urobilinogen [0.1-1.0 EU/dL] 0.2 EU/dL (11/02/15 8:34 PM) UA Bili [Negative] Negative *NA* (11/02/15 8:34 PM) UA Leuk Est [Negative] Negative (11/02/15 8:34 PM) UA Nitrite [Negative] Negative (11/02/15 8:34 PM) UA WBC [None Seen /HPF] 0-2 /HPF (11/02/15 8:34 PM) UA RBC [0-2 /HPF] 0-2 /HPF (11/02/15 8:34 PM) UA Sq Epi [Few /LPF] Occasional /LPF (11/02/15 8:34 PM) HEMATOLOGY Most recent to oldest [Reference Range]: 1 WBC [3.7-10.4 K/CMM] 10.5 K/CMM *HI* (11/02/15 8:00 PM) RBC [4.20-5.40 M/CMM] 3.57 M/CMM *LOW* (11/02/15 8:00 PM) Hgb [12.0-16.0 g/dL] 10.6 g/dL *LOW* (11/02/15 8:00 PM) Hct [36.0-48.0 %] 32.2 % *LOW* (11/02/15 8:00 PM) MCV [80.0-98.0 fL] 90.2 fL (11/02/15 8:00 PM) MCH [27.0-31.0 pg] 29.8 pg (11/02/15 8:00 PM) MCHC [32.0-36.0 g/dL] 33.0 g/dL (11/02/15 8:00 PM) RDW [11.5-14.5 %] 13.1 % (11/02/15 8:00 PM) Platelet [133-450 K/CMM] 260 K/CMM (11/02/15 8:00 PM) MPV [7.4-10.4 fL] 9.4 fL (11/02/15 8:00 PM) Segs [45.0-75.0 %] 40.2 % *LOW* (11/02/15 8:00 PM) Lymphocytes [20.0-40.0 %] 48.6 % *HI* (11/02/15 8:00 PM) Monocytes [2.0-12.0 %] 8.6 % (11/02/15 8:00 PM) Eosinophils [0.0-4.0 %] 1.8 % (11/02/15 8:00 PM) Basophils [0.0-1.0 %] 0.8 % (11/02/15 8:00 PM) Segs-Bands # [1.5-8.1 K/CMM] 4.2 K/CMM (11/02/15 8:00 PM) Lymphocytes # [1.0-5.5 K/CMM] 5.1 K/CMM (11/02/15 8:00 PM) Monocytes # [0.0-0.8 K/CMM] 0.9 K/CMM *HI* (11/02/15 8:00 PM) Eosinophils # [0.0-0.5 K/CMM] 0.2 K/CMM (11/02/15 8:00 PM) Basophils # [0.0-0.2 K/CMM] 0.1 K/CMM (11/02/15 8:00 PM) D-Dimer 0.27 ug/mL FEU *NA* (11/02/15 8:00 PM) Immunizations Given and Recorded Vaccine Date Status Refusal Reason influenza virus vaccine, inactivated 05/03/10 Given pneumococcal 23-valent vaccine 03/11/08 Given Procedures Procedure Date Related Diagnosis Body Site Arthroscopy of knee 06/11/15 Cervical spinal fusion Cholecystectomy Hand Hand repair1 Hysterectomy Nerve block Shoulder Thyroidectomy2 1thumb joint [id number] Social History Social History Type Response Substance [...] Days No; Reg Smoking Cessation Counseling No [id number] Assessment and Plan No data available for this section
[2017-11-26] MEDS ORDERED: METHYLPREDNISOLONE 125 MG INJ ONE (11:41)
[2017-11-26] MEDS ORDERED: LEVALBUTEROL 1.25 MG/3 ML NEB ONE (11:41)
[2017-11-26] MEDS ORDERED: NA CHLORIDE 0.9% 1,000 ML ONE (11:41)
[2017-11-26 12:06] LABS: Absolute Lymphocytes (CBC) 4.5 K/uL (0.7-4.9); Absolute Monocytes 0.8 K/uL (0.1-1.3); Absolute Neutrophil 6.7 K/uL (1.8-8.0); Basophils % 0.4 % (0-1.3); Eosinophils % 1.3 % (0-4.4); Hematocrit 37.2 % (36.0-45.0); Lymphocytes % 37.1 % (15.3-44.8); MCH 29.7 pg (27.0-35.0); MPV 8.5 fL (7.6-11.3); Monocytes % 6.2 % (3.3-12.3); RBC Red Blood Cell Count 4.19 M/uL (3.86-4.86)
[2017-11-26 12:17] LABS: Albumin 3.4 g/dL (3.4-5.0); Bilirubin Total 0.1 mg/dL (0.2-1.0); Potassium 3.3 mmol/L (3.5-5.1); Protein, Total 7.5 g/dL (6.4-8.2)
[2017-11-26 12:20] LABS: Urine Blood TRACE (NEG); Urine Glucose NEGATIVE (NEG); Urine Protein NEGATIVE (NEG)
--- NOTE | 2017-11-26 12:34 | EDPHYS ---
Physician Documentation [facility] Name: Francoise Carolina Age: 37 yrs Sex: Female : 1980 Arrival Date: 11/26/2017 Time: 11:11 Bed 13 Private MD: ED Physician Micha Foster HPI: 11/26 12:12 This 37 yrs old Female presents to ER via EMS with complaints of Allergic kav Reaction. 12:13 The patient presents with hoarse voice. Onset: The symptoms/episode began/occurred kav acutely, just prior to arrival. Associated signs and symptoms: Pertinent negatives: chest pain, dysphagia, hives, Light headed nausea, rash, shortness of breath, swelling, vomiting. Possible causes: almonds. At home the patient or guardian has treated the symptoms with EpiPen. Severity of symptoms: At their worst the symptoms were moderate just prior to arrival. The patient has experienced a previous episode, approximately 1 years ago. The patient has not recently seen a physician. 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 - Hysterectomy tw2 Historical: - Allergies: 11:17 Aspirin; tw2 11:17 basamic vinegar; tw2 11:17 Naprosyn; tw2 11:17 Nuts (Anaphylaxis); tw2 11:17 Talwin; tw2 11:17 Zofran; migraine; tw2 11:17 Demerol; tw2 - Home Meds: 11:17 levothyroxine 75 mcg tab 1 tab once daily for Hypothyroidism [Active]; estradiol 2 mg tw2 Oral tab 1 tab once daily [Active]; Cymbalta oral oral [Active]; Seroquel Oral [Active]; - PMHx: 11:17 epilepsy; Hypothyroidism; tw2 - PSHx: 11:17 Cholecystectomy; Appendectomy; Hysterectomy; C4-C6 fusion; Shoulder surgery; B/L hand tw2 surgery; B/L knee surgery; - Immunization history:: Adult Immunizations up to date. - Social history:: Smoking status: Patient/guardian denies using tobacco. - Ebola Screening: : Patient denies travel to an Ebola-affected area in the 21 days before illness onset. - Family history:: not pertinent. - Hospitalizations: : No recent hospitalization is reported. ROS: 12:21 Constitutional: Negative for fever, chills, and weight loss, Eyes: Negative for injury, kav pain, redness, and discharge, ENT: Negative for injury, pain, and discharge, Neck: Negative for injury, pain, and swelling, Cardiovascular: Negative for chest pain, palpitations, and edema, Abdomen/GI: Negative for abdominal pain, nausea, vomiting, diarrhea, and constipation, Back: Negative for injury and pain, : Negative for injury, bleeding, discharge, and swelling, MS/Extremity: Negative for injury and deformity, Skin: Negative for injury, rash, and discoloration, Neuro: Negative for headache, weakness, numbness, tingling, and seizure, Psych: Negative for depression, anxiety, suicide ideation, homicidal ideation, and hallucinations, Allergy/Immunology: Negative for hives, rash, and allergies, Endocrine: Negative for neck swelling, polydipsia, polyuria, polyphagia, and marked weight changes, Hematologic/Lymphatic: Negative for swollen nodes, abnormal bleeding, and unusual bruising. 12:21 Respiratory: Positive for cough, with no reported sputum. Exam: 12:21 Constitutional: This is a well developed, well nourished patient who is awake, alert, kav and in no acute distress. Head/Face: Normocephalic, atraumatic. Eyes: Pupils equal round and reactive to light, extra-ocular motions intact. Lids and lashes normal. Conjunctiva and sclera are non-icteric and not injected. Cornea within normal limits. Periorbital areas with no swelling, redness, or edema. ENT: Nares patent. No nasal discharge, no septal abnormalities noted. Tympanic membranes are normal and external auditory canals are clear. Oropharynx with no redness, swelling, or masses, exudates, or evidence of obstruction, uvula midline. Mucous membranes moist. Neck: Trachea midline, no thyromegaly or masses palpated, and no cervical lymphadenopathy. Supple, full range of motion without nuchal rigidity, or vertebral point tenderness. No Meningismus. Chest/axilla: Normal chest wall appearance and motion. Nontender with no deformity. No lesions are appreciated. Cardiovascular: Regular rate and rhythm with a normal S1 and S2. No gallops, murmurs, or rubs. Normal PMI, no JVD. No pulse deficits. Abdomen/GI: Soft, non-tender, with normal bowel sounds. No distension or tympany. No guarding or rebound. No evidence of tenderness throughout. Back: No spinal tenderness. No costovertebral tenderness. Full range of motion. Skin: Warm, dry with normal turgor. Normal color with no rashes, no lesions, and no evidence of cellulitis. MS/ Extremity: Pulses equal, no cyanosis. Neurovascular intact. Full, normal range of motion. Neuro: Awake and alert, GCS 15, oriented to person, place, time, and situation. Cranial nerves II-XII grossly intact. Motor strength 5/5 in all extremities. Sensory grossly intact. Cerebellar exam normal. Normal gait. Psych: Awake, alert, with orientation to person, place and time. Behavior, mood, and affect are within normal limits. 12:21 Respiratory: the patient does not display signs of respiratory distress, Respirations: normal, no acute changes, Breath sounds: decreased breath sounds, that are mild. Vital Signs: 11:13 BP 156 / 103; Pulse 110; Resp 20; Temp 98.7(O); Pulse Ox 100% on 2 lpm NC; tw2 11:46 BP 137 / 83; Pulse 104; Resp 19; Pulse Ox 100% on Nebulizer Mask; tw2 12:30 BP 131 / 72; Pulse 114; Resp 18; Pulse Ox 100% on 2 lpm NC; tw2 13:24 BP 126 / 74; Pulse 110; Resp 17; Pulse Ox 99% on R/A; tw2 MDM: 11:22 Medical screening is not applicable. [facility] 12:39 Data reviewed: vital signs, nurses notes, lab test result(s). [facility] 11/26 11:32 Order name: CBC with Diff; Complete Time: 12:39 [facility] 11/26 11:32 Order name: CMP; Complete Time: 12:39 [facility] 11/26 11:58 Order name: Urine Dipstick--Ancillary (enter results); Complete Time: 12:39 [facility] 11/26 11:58 Order name: Urine --Ancillary (enter results); Complete Time: 12:39 [facility] 11/26 11:45 Order name: IV Start; Complete Time: 11:45 tw2 Administered Medications: 11:42 Drug: Xopenex (3) 1.25 mg Route: Inhalation; tw2 13:23 Follow up: Response: No adverse reaction tw 11:43 Drug: SOLU-Medrol 125 mg Route: IVP; Site: right antecubital; tw2 13:23 Follow up: Response: No adverse reaction tw2 11:45 Drug: NS 0.9% 1000 ml Route: IV; Rate: 1000 ml; Site: right antecubital; tw2 13:23 Follow up: Response: No adverse reaction; IV Status: Completed infusion; IV Intake: tw2 1000ml Disposition: 11/26/17 12:34 Discharged to Home. Impression: Allergic Reaction to Medication. - Condition is Stable. - Discharge Instructions: Epinephrine Injection, Food Allergy, [id number]. - Prescriptions for Medrol ([place]) 4 mg Oral Tablets, Dose Pack - take 1 tablet by ORAL route as directed - follow package instructions; 1 packet. EpiPen 0.3 mg Injection auto- injector - inject 1 pen by INTRAMUSCULAR route as directed Inject into the outer portion of the thigh, through clothing if necessary. Indicated in the emergency treatment of allergic reactions; 1 Cartridge. - Work release form, Medication Reconciliation Form, Thank You Letter, Antibiotic Education, Prescription Opioid Use form. - Follow up: Private Physician; When: 2 - 3 days; Reason: Recheck today's complaints, Continuance of care, Re-evaluation by your physician. - Problem is new. - Symptoms have improved. - Notes: over the counter benadryl as needed and as directed Addendum: 11/28/2017 08:05 Co-signature as Attending Physician, Micha Foster MD I agree with the assessment and w a plan of care. Signatures: Dispatcher [employer] Maddy Salgado, MEDICATION AID MEDICATION AID Sandra Powell RN RN tw2 Micha Foster MD MD [place] Corrections: (The following items were deleted from the chart) 11/26 13:25 12:34 11/26/2017 12:34 Discharged to Home. Impression: Allergic Reaction to Medication. tw2 Condition is Stable. Forms are Medication Reconciliation Form, Thank You Letter, Antibiotic Education, Prescription Opioid Use. Follow up: Private Physician; When: 2 - 3 days; Reason: Recheck today's complaints, Continuance of care, Re-evaluation by your physician. Problem is new. Symptoms have improved. [email or web address]
--- NOTE | 2017-11-26 12:34 | ER ---
Nurse's Notes [facility] Name: Francoise Carolina Age: 37 yrs Sex: Female : 1980 Arrival Date: 11/26/2017 Time: 11:11 Bed 13 Private MD: Diagnosis: Allergic Reaction to Medication Presentation: 11/26 11:12 Presenting complaint: EMS states: pt was at school, someone brought in almonds and she tw2 is allergic to them, she self administered EPI that she had with her at 1008, we gave 2 albuterol treatments, 2L nc. Transition of care: patient was not received from another setting of care. Onset: The symptoms/episode began/occurred suddenly. Anaphylaxis evaluation, the patient reports or I have noted the following symptoms which indicate a significant risk of anaphylaxis: shortness of breath tachypnea. Onset of symptoms was November 26, 2017. Risk Assessment: Do you want to hurt yourself or someone else? Patient reports no desire to harm self or others. Initial Sepsis Screen: Does the patient meet any 2 criteria? No. Patient's initial sepsis screen is negative. Does the patient have a suspected source of infection? No. Patient's initial sepsis screen is negative. Care prior to arrival: Medication(s) given: Albuterol Neb x 2. 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 N/A - Hysterectomy tw2 Historical: - Allergies: 11:17 Aspirin; tw2 11:17 basamic vinegar; tw2 11:17 Naprosyn; tw2 11:17 Nuts (Anaphylaxis); tw2 11:17 Talwin; tw 11:17 Zofran; migraine; tw 11:17 Demerol; tw2 - Home Meds: 11:17 levothyroxine 75 mcg tab 1 tab once daily for Hypothyroidism [Active]; estradiol 2 mg tw2 Oral tab 1 tab once daily [Active]; Cymbalta oral oral [Active]; Seroquel Oral [Active]; - PMHx: 11:17 epilepsy; Hypothyroidism; tw2 - PSHx: 11:17 Cholecystectomy; Appendectomy; Hysterectomy; C4-C6 fusion; Shoulder surgery; B/L hand tw2 surgery; B/L knee surgery; - Immunization history:: Adult Immunizations up to date. - Social history:: Smoking status: Patient/guardian denies using tobacco. - Ebola Screening: : Patient denies travel to an Ebola-affected area in the 21 days before illness onset. - Family history:: not pertinent. - Hospitalizations: : No recent hospitalization is reported. Screenin:20 Abuse screen: Denies threats or abuse. Nutritional screening: No deficits noted. tw2 Tuberculosis screening: No symptoms or risk factors identified. Fall Risk None identified. Assessment: 11:28 General: Appears in no apparent distress. Behavior is anxious. Pain: Complains of pain tw2 in right wrist. Neuro: Level of Consciousness is awake, alert, obeys commands, Oriented to person, place, time, situation. Cardiovascular: Denies chest pain. Respiratory: Airway is patent Respiratory effort is even, unlabored, Respiratory pattern is regular, symmetrical, Breath sounds are clear bilaterally. Respiratory: Reports cough that is dry. GI: No signs and/or symptoms were reported involving the gastrointestinal system. Abdomen is flat, Bowel sounds present X 4 quads. : No signs and/or symptoms were reported regarding the genitourinary system. EENT: No signs and/or symptoms were reported regarding the EENT system. Derm: No signs and/or symptoms reported regarding the dermatologic system. Skin is intact, is healthy with good turgor, Skin is dry. Musculoskeletal: Range of motion: intact in all extremities. 12:30 Reassessment: Patient appears in no apparent distress at this time. No changes from tw2 previously documented assessment. Patient and/or family updated on plan of care and expected duration. Pain level reassessed. Patient is alert, oriented x 3, equal unlabored respirations, skin warm/dry/pink. 13:24 Reassessment: Patient appears in no apparent distress at this time. No changes from tw2 previously documented assessment. Patient and/or family updated on plan of care and expected duration. Pain level reassessed. Patient is alert, oriented x 3, equal unlabored respirations, skin warm/dry/pink. Vital Signs: 11:13 BP 156 / 103; Pulse 110; Resp 20; Temp 98.7(O); Pulse Ox 100% on 2 lpm NC; tw2 11:46 BP 137 / 83; Pulse 104; Resp 19; Pulse Ox 100% on Nebulizer Mask; tw2 12:30 BP 131 / 72; Pulse 114; Resp 18; Pulse Ox 100% on 2 lpm NC; tw2 13:24 BP 126 / 74; Pulse 110; Resp 17; Pulse Ox 99% on R/A; tw2 ED Course: 11:11 Patient arrived in ED. tw2 11:12 Bed in low position. Call light in reach. Pulse ox on. Sitter at bedside. tw2 11:13 Triage completed. tw2 11:14 Arm band placed on. tw2 11:18 Sandra Gray RN is Primary Nurse. tw2 11:22 Maddy Montague FNP is PHCP. kav 11:22 Micha Foster MD is Attending Physician. kav 11:31 Patient has correct armband on for positive identification. Placed in gown. Warm mh5 blanket given. 11:48 Initial lab(s) drawn, by wa, sent to lab. Urine collected: clean catch specimen, clear. 5 Inserted saline lock: 22 gauge in right antecubital area, using aseptic technique. Blood collected. 11:49 CMP Sent. 5 11:49 CBC with Diff Sent. 5 12:37 Awaiting: completion of IV fluids PRIOR to discharge. tw2 13:25 No provider procedures requiring assistance completed. IV discontinued, intact, tw2 bleeding controlled, No redness/swelling at site. Pressure dressing applied. Administered Medications: 11:42 Drug: Xopenex (3) 1.25 mg Route: Inhalation; tw2 13:23 Follow up: Response: No adverse reaction tw2 11:43 Drug: SOLU-Medrol 125 mg Route: IVP; Site: right antecubital; tw2 13:23 Follow up: Response: No adverse reaction tw2 11:45 Drug: NS 0.9% 1000 ml Route: IV; Rate: 1000 ml; Site: right antecubital; tw2 13:23 Follow up: Response: No adverse reaction; IV Status: Completed infusion; IV Intake: tw2 1000ml Intake: 13:23 IV: 1000ml; Total: 1000ml. tw2 Outcome: 12:34 Discharge ordered by . kav 13:25 Discharged to home ambulatory. tw2 13:25 Condition: stable 13:25 Discharge instructions given to patient, Instructed on discharge instructions, follow up and referral plans. no drinking with medication, no driving heavy equipment, medication usage, Demonstrated understanding of instructions, follow-up care, Prescriptions given X 2. 13:25 Patient left the ED. tw2 Signatures: Maddy Montague, Sandra Martell RN RN tw2 Juliette Chatterjee [facility]
[2017-11-26 13:38] VITALS: TEMP 98.7
[2017-11-26 13:41] VITALS: BP 126/74; O2SAT 99
== END 2017-11-26 13:25 | disposition home or self-care (01) ==
LOC: ER 11:10
DX: R05 Cough (principal); E03.9 Hypothyroidism, unspecified; Z88.5 Allergy status to narcotic agent; Z88.6 Allergy status to analgesic agent; Z88.8 Allergy status to other drugs, medicaments and biological substances; Z91.018 Allergy to other foods
CPT/HCPCS: 36415; 80053; 81003; 81025; 85025; 96361; 96374; 99285; J2930; J7030

== ENCOUNTER 2025-01-15 17:55 | Emergency (ER) | payer BC ==
[2025-01-15] MEDS ORDERED: MORPHINE 4 MG/ML SYR ONE (18:17)
[2025-01-15] MEDS ORDERED: PROMETHAZINE INJ 25 MG/ML AMP ONE (18:17)
[2025-01-15] MEDS ORDERED: NA CHLORIDE 0.9% 1,000 ML ONE (18:17)
--- OUTSIDE RECORDS SUMMARY | 2025-01-15 18:31 | XMS REPORT | Continuity of Care Document ---
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 Anxiety. [facility] QUEtiapine 300 mg tablet 11-24 00:00: 00 12-27 00:00 :00 No [id number] 300mg Take 1 tablet by mouth at bedtime. [facility] SERTraline (ZOLOFT) 100 mg tablet 11-24 00:00: 12-25 04:59 :00 No [id number] 200mg Take 2 tablets by mouth in the morning. [facility] buPROPion XL 300 mg 24 hr tablet 11-24 00:00: 00 12-20 00:00 :00 No [id number] 300mg Take 1 tablet by mouth every morning. [facility] SERTraline (ZOLOFT) 100 mg tablet 11-11 00:00: 00 11-24 00:00 :00 No [id number] Take 0.5 tablets by mouth daily for 3 days, THEN 1 tablet daily for 3 days, THEN 2 tablets daily for 8 days. [facility] QUEtiapine 300 mg tablet 11-11 00:00: 00 11-24 00:00 :00 No [id number] 300mg Take 1 tablet by mouth at bedtime. [facility] buPROPion XL 300 mg 24 hr tablet 11-11 00:00: 00 11-24 00:00 :00 No [id number] 300mg Take 1 tablet by mouth every morning. [facility] QUEtiapine 300 mg tablet 6 00:00: 00 11-11 00:00 :00 No [id number] 450mg Take 1.5 tablets by mouth at bedtime. [facility] traZODone 50 mg tablet 08-19 00:00: 00 11-29 00:00 :00 No [id number] 50mg Take 1 tablet by mouth at bedtime. [facility] buPROPion XL 300 mg 24 hr tablet 08-19 00:00: 00 11-11 00:00 :00 No [id number] 300mg Take 1 tablet by mouth every morning. [facility] doxepin 10 mg capsule - 00:00: 00 08-19 00:00 :00 No [id number] 10mg Take 1 capsule by mouth at bedtime. [facility] fluticasone propionate 50 mcg/actuati on nasal spray 4- 00:00: 00 11-29 00:00 :00 No [id number] 2{spray } Use 2 Sprays in each nostril in the morning. [facility] lidocaine 1% (PF) (XYLOCAINE) injection 5 mL 06-27 20:00: 00 06-27 19:02 :00 No [id number] 5mL 5 mL, Subcutaneo us, ONCE, 1 dose, On Thu06/27/24 at 1500, Routine [facility] sodium bicarbonate 1 mEq/mL (8.4 %) injection 1 mL 06-27 20:00: 00 06-27 19:03 :00 No [id number] 1mL 1 mL, Infiltrati on, ONCE, 1 dose, On Thu06/27/24 at 1500, Routine [facility] methylPREDN ISolone acetate (DEPO-MEDRO L) injection 80 mg 06-27 19:45: 00 06-27 19:05 :00 No [id number] 80mg 80 mg, Infiltrati on, ONCE, 1 dose, On Thu06/27/24 at 1445, Routine [facility] bupivacaine (preserv free) (SENSORCAIN E MPF) 0.25 % (2.5 mg/mL) injection 19 mL 06-27 19:45: 00 06-27 19:05 :00 No [id number] 19mL 19 mL, Infiltrati on, ONCE, 1 dose, On Thu06/27/24 at 1445, Routine [facility] midazolam (VERSED) injection 06-27 19:01: 10 06-27 19:01 :10 No TITRATE - FOR PROCEDURE USE, 1 dose, Starting on Thu06/27/24 at 1401, Until Thu06/27/24 at 1401, Routine [facility] midazolam (VERSED) injection 06-27 18:58: 06 06-27 18:58 :06 No TITRATE - FOR PROCEDURE USE, 1 dose, Starting on Thu06/27/24 at 1358, Until Thu06/27/24 at 1358, Routine [facility] FENTanyl (PF) (SUBLIMAZE) injection 06-27 18:58: 00 06-27 18:58 :00 No TITRATE - FOR PROCEDURE USE, 1 dose, Starting on Thu06/27/24 at 1358, Until Thu06/27/24 at 1358, Routine [facility] meloxicam 15 mg tablet 06-07 00:00: 00 Yes 15mg Take 1 tablet by mouth in the morning. [facility] dexamethaso ne (DECADRON) injection 10 mg 06-04 20:45: 00 06-04 20:59 :00 No [id number] 10mg 10 mg, Intramuscu lar, ONCE, 1 dose, On 06/04/24 at 1445, Routine [facility] ipratropium -albuteroL (DUONEB) 0.5 mg-3 mg(2.5 mg base)/3 mL nebulizer solution 3 mL 06-04 20:30: 00 06-04 21:06 :00 No [id number] 3mL 3 mL, Inhalation , ONCE, 1 dose, On 06/04/24 at 1445, Routine [facility] azithromyci n 250 mg tablet 06-04 00:00: 00 08-19 00:00 :00 No [id number] Z pack as directed. [facility] albuterol 90 mcg/actuati on inhaler 06-04 00:00: 00 06-15 04:59 :00 No [id number] 2{puff} Inhale 2 Puffs every 6 (six) hours as needed for Wheezing for up to 10 days. [facility] codeine-gua ifenesin 10-100 mg/5 mL oral solution 06-04 00:00: 00 06-10 05:59 :00 No 5mL Take 5 mL by mouth every 6 (six) hours as needed for Cough for up to 5 days. Indication s: cough [facility] bromphenira mine-pseudo ephedrine-D M (BROMFED DM) 2-30-10 mg/5 mL syrup 2024-0 2-17 00:00: 00 11-29 00:00 :00 No [id number] 10mL Take 10 mL by mouth 4 (four) times daily as needed for Congestion /Allergies or Cold symptoms. [facility] benzonatate 100 mg capsule 0 2-17 00:00: 00 08-19 00:00 :00 No [id number] 200mg Take 2 capsules by mouth every 8 (eight) hours as needed for Cough. [facility] guaiFENesin 400 mg tablet 2-17 00:00: 00 08-19 00:00 :00 No [id number] 400mg Take 1 tablet by mouth every 4 (four) hours as needed for Cough. [facility] ibuprofen 600 mg tablet -17 00:00: 00 08-19 00:00 :00 No [id number] 600mg Take 1 tablet by mouth every 6 (six) hours as needed for Pain (scale 1-3) or Pain (scale 4-6). [facility] predniSONE 20 mg tablet 2-17 00:00: 00 05-29 05:59 :00 No [id number] 40mg Take 2 tablets by mouth in the morning for 5 days. [facility] QUEtiapine 300 mg tablet 2-13 00:00: 00 09-08 00:00 :00 No [id number] 450mg Take 1.5 tablets by mouth at bedtime. [facility] Quetiapine 150 mg tablet 2-12 00:00: 00 Yes [id number] 450mg Take 3 tablets by mouth at bedtime. [facility] MELOXICAM ORAL 2-10 12:16: 10 07-31 00:00 :00 No Take by mouth daily. [facility] pregabalin (LYRICA) 25 mg capsule 2024-0 2-10 00:00: 00 Yes [id number] 25mg Take 1 capsule by mouth in the morning and 1 capsule in the evening. [facility] SERTraline 100 mg tablet 2-07 00:00: 00 11-12 00:00 :00 No [id number] 150mg Take 1.5 tablets by mouth every morning. [facility] buPROPion XL 150 mg 24 hr tablet 2-07 00:00: 00 08-19 00:00 :00 No [id number] 150mg Take 1 tablet by mouth every morning. [facility] doxepin 10 mg capsule 2-07 00:00: 00 07-13 00:00 :00 No [id number] 10mg Take 1 capsule by mouth at bedtime. [facility] QUEtiapine 150 mg Tab 2- 00:00: 00 05-18 00:00 :00 No [id number] 450mg Take 450 mg by mouth at bedtime. Take 3 tablets by mouth at bedtime. [facility] QUEtiapine 150 mg Tab 2- 00:00: 00 05-13 00:00 :00 No [id number] 450mg Take 3 tablets by mouth at bedtime. [facility] buPROPion XL 150 mg 24 hr tablet 1-06 00:00: 00 05-13 00:00 :00 No [id number] 150mg Take 1 tablet by mouth every morning. [facility] SERTraline 100 mg tablet 2023-04 2-12 00:00: 00 05-13 00:00 :00 No [id number] 150mg Take 1.5 tablets by mouth every morning. [facility] ibuprofen 600 mg tablet 2023-04 2-03 00:00: 00 05-23 00:00 :00 No [id number] 600mg Take 1 tablet by mouth every 6 (six) hours as needed for Pain (scale 4-6) or Pain (scale 1-3). [facility] QUEtiapine 150 mg Tab 2023-04 1-27 00:00: 00 05-11 00:00 :00 No [id number] 450mg Take 450 mg by mouth at bedtime. [facility] SERTraline 100 mg tablet 2023-04 00:00: 00 03-16 00:00 :00 No [id number] 150mg Take 1.5 tablets by mouth every morning. [facility] proMETHazin e 25 mg tablet 2023-04 00:00: 00 08-19 00:00 :00 No [id number] 25mg Take 1 tablet by mouth every 6 (six) hours as needed for Nausea and Vomiting (N/V). [facility] cholestyram ine 4 gram packet 2023-04 00:00: 00 05-13 00:00 :00 No [id number] 1{packe t} Take 1 Packet by mouth in the morning and 1 Packet in the evening. [facility] methylPREDN ISolone acetate (DEPO-MEDRO L) injection 40 mg 2023-04 20:00: 00 01-31 19:50 :00 No [id number] 40mg 40 mg, Intra-manuel cular, ONCE, 1 dose, On Thu02/01/24 at 1500, [facility] lidocaine 1% (PF) (XYLOCAINE) injection 5 mL 2023-04 20:00: 00 01-31 19:50 :00 No [id number] 5mL 5 mL, Infiltrati on, ONCE, 1 dose, On Thu02/01/24 at 1500, [facility] sodium bicarbonate 1 mEq/mL (8.4 %) injection 1 mL 2023-04 20:00: 00 01-31 19:50 :00 No [id number] 1mL 1 mL, Infiltrati on, ONCE, 1 dose, On Thu02/01/24 at 1500, [facility] bupivacaine (preserv free) (SENSORCAIN E MPF) 0.25 % (2.5 mg/mL) injection 19 mL 2023-04 20:00: 00 01-31 19:50 :00 No [id number] 19mL 19 mL, Infiltrati on, ONCE, 1 dose, On Thu02/01/24 at 1500, [facility] midazolam (VERSED) injection 2023-04 19:48: 03 01-31 19:48 :03 No TITRATE - FOR PROCEDURE USE, 1 dose, Starting on Thu02/01/24 at 1448, Until Thu02/01/24 at 1448, Routine [facility] fentanyl PF (SUBLIMAZE (PF)) injection 2023-04 19:45: 09 01-31 19:45 :09 No TITRATE - FOR PROCEDURE USE, 1 dose, Starting on Thu02/01/24 at 1445, Until Thu02/01/24 at 1445, Routine [facility] midazolam (VERSED) injection 2023-04 19:38: 00 01-31 19:38 :00 No TITRATE - FOR PROCEDURE USE, 1 dose, Starting on Thu02/01/24 at 1438, Until Thu02/01/24 at 1438, Routine [facility] buPROPion XL 150 mg 24 hr tablet 2023-04 00:00: 00 04-11 00:00 :00 No [id number] 150mg TAKE 1 TABLET BY MOUTH EVERY DAY IN THE MORNING [facility] TRAZODONE 50 mg tablet 2023-04 007 00:00: 00 05-13 00:00 :00 No [id number] 50mg TAKE 1 TABLET BY MOUTH EVERYDAY AT BEDTIME [facility] proMETHazin e (PHENERGAN) 25 mg in NS 50 mL IV piggyback (CNR) 12-30 22:30: 00 12-30 22:53 :00 No 25mg 25 mg, IV Piggyback, at 200 mL/hr Administer over 15 Minutes, ONCE, 1 dose, On Irene 12/31/23 at 1730, [facility] NaCl 0.9% (NS) bolus infusion 1,000 mL 12-30 22:30: 00 12-30 23:54 :00 No 1000mL at 999 mL/hr, 1,000 mL, IV Infusion, ONCE, 1 dose, On Irene 12/31/23 at 1730, [facility] dexamethaso ne sod phos PF injection 10 mg 12-30 22:00: 00 12-30 22:31 :00 No 10mg 10 mg, Slow IV Push, ONCE, 1 dose, On Irene 12/31/23 at 1700, 1 mL [facility] methylPREDN ISolone (MEDROL, SANDRA,) 4 mg tablets 12-30 00:00: 00 05-13 00:00 :00 No [id number] Take by mouth SEE-INSTRU CTIONS. follow package directions [facility] meclizine 25 mg tablet 12-30 00:00: 00 05-13 00:00 :00 No [id number] 25mg Take 1 tablet by mouth every 6 (six) hours. [facility] QUEtiapine 150 mg Tab 12-16 00:00: 00 03-02 00:00 :00 No [id number] 450mg Take 450 mg by mouth at bedtime. [facility] SERTraline 100 mg tablet 12-16 00:00: 00 03-01 00:00 :00 No [id number] 150mg Take 1.5 tablets by mouth every morning. [facility] topiramate 25 mg tablet 12-16 00:00: 00 02-15 05:59 :00 No [id number] 25mg Take 1 tablet by mouth in the morning and 1 tablet in the evening. Do all this for 60 days. [facility] buPROPion XL (WELLBUTRIN XL) 150 mg 24 hr tablet 12-16 00:00: 00 01-11 00:00 :00 No [id number] 150mg Take 1 tablet by mouth in the morning. [facility] traZODone 50 mg tablet 12-16 00:00: 00 01-10 00:00 :00 No [id number] 50mg Take 1 tablet by mouth at bedtime. [facility] SERTraline 100 mg tablet 12-10 00:00: 00 12-16 00:00 :00 No [id number] 150mg Take 1.5 tablets by mouth every morning. [facility] QUEtiapine 300 mg tablet 12-10 00:00: 00 12-16 00:00 :00 No [id number] 600mg Take 2 tablets by mouth at bedtime. [facility] buPROPion XL (WELLBUTRIN XL) 150 mg 24 hr tablet 12-10 00:00: 00 12-16 00:00 :00 No [id number] 150mg Take 1 tablet by mouth in the morning. [facility] omeprazole 40 mg capsule 12-09 00:00: 00 05-13 00:00 :00 No [id number] 40mg Take 1 capsule by mouth in the morning. [facility] rifAXIMin (XIFAXAN) 550 mg tablet 12-09 00:00: 00 05-13 00:00 :00 No [id number] 550mg Take 1 tablet by mouth in the morning and 1 tablet at noon and 1 tablet in the evening. [facility] simethicone (GAS RELIEF (SIMETHICON E)) 40 mg/0.6 mL drops 12-02 16:35: 00 12-02 20:14 :39 No PRN, Starting on Irene 12/03/23 at 1135, Until Thu12/03/23 at 1514, Routine, Intra-op [facility] midazolam (VERSED) injection 11-03 18:30: 43 11-03 18:30 :43 No TITRATE - FOR PROCEDURE USE, 1 dose, Starting on Thu11/04/23 at 1330, Until Thu11/04/23 at 1330, Routine [facility] lactated ringers IV infusion 500 mL 11-03 18:30: 00 11-04 06:29 :00 No [id number] 500mL [facility] methylPREDN ISolone acetate (DEPO-MEDRO L) injection 80 mg 11-03 18:30: 00 11-03 18:33 :00 No [id number] 80mg 80 mg, Intra-manuel cular, ONCE, 1 dose, On Thu11/04/23 at 1330, [facility] sodium bicarbonate 1 mEq/mL (8.4 %) injection 1 mL 11-03 18:30: 00 11-03 18:33 :00 No [id number] 1mL 1 mL, Infiltrati on, ONCE, 1 dose, On Thu11/04/23 at 1330, [facility] lidocaine 1% (PF) (XYLOCAINE) injection 10 mL 11-03 18:30: 00 11-03 18:33 :00 No [id number] 10mL 10 mL, Infiltrati on, ONCE, 1 dose, On Thu11/04/23 at 1330, [facility] bupivacaine (preserv free) (SENSORCAIN E MPF) 0.25 % (2.5 mg/mL) injection 19 mL 11-03 18:30: 00 11-03 18:33 :00 No [id number] 19mL 19 mL, Infiltrati on, ONCE, 1 dose, On Thu11/04/23 at 1330, [facility] FENTanyl PF (SUBLIMAZE (PF)) injection 11-03 18:29: 11 11-03 18:29 :11 No TITRATE - FOR PROCEDURE USE, 1 dose, Starting on Thu11/04/23 at 1329, Until Thu11/04/23 at 1329, Routine [facility] midazolam (VERSED) injection 11-03 18:25: 00 11-03 18:25 :00 No TITRATE - FOR PROCEDURE USE, 1 dose, Starting on Thu11/04/23 at 1325, Until Thu11/04/23 at 1325, Routine [facility] barium sulfate (LIQUID E-Z PAQUE) 60 % (w/v) oral suspension 50 mL 10-18 19:45: 00 10-18 19:34 :00 No [id number] 50mL 50 mL, Oral, ONCE, 1 dose, On Thu10/19/23 at 1445, Routine [facility] sod bicarb-citr ic ac-simeth (E-Z-GAS II) 2.21-1.53 gram/4 gram packet 1 Packet 10-18 19:45: 00 10-18 19:34 :00 No [id number] 1{packe t} 1 Packet, Oral, ONCE, 1 dose, On Thu10/19/23 at 1445, Routine [facility] HYDROcodone -acetaminop hen 10-325 mg tablet 10-14 08:52: 18 05-13 00:00 :00 No TAKE 1 TABLET(S) EVERY FOUR HOURS, NEEDED FOR PAIN [facility] proMETHazin e 12.5 mg tablet 10-14 00:00: 00 02-10 00:00 :00 No [id number] 12.5mg Take 1 tablet by mouth every 6 (six) hours as needed for Nausea and Vomiting (N/V). [facility] omeprazole 40 mg capsule 10-14 00:00: 00 12-09 00:00 :00 No [id number] 40mg Take 1 capsule by mouth in the morning. [facility] Percocet 10 mg-325 mg oral tablet 09-27 16:00: 00 Yes 1-2 tab, PO, Q6H, # 56 tab, 0 Refill(s), Pharmacy: [facility] #[id number], 170.18, cm, 09/25/23 15:39:00 CDT, Height, 96.4, kg, 09/25/23 15:39:00 CDT, Weight [facility] oxyCODONE-a cetaminophe n 10-325 mg per tablet 09-27 00:00: 00 12-16 00:00 :00 No TAKE 1 TO 2 TABLETS BY MOUTH EVERY 6 HOURS [facility] Phenergan 12.5 mg oral tablet 09-24 22:30: 00 Yes 12.5 mg = 1 tab, PO, Q4H, PRN Other-See Comments, # 60 tab, 0 Refill(s) [facility] tizanidine 2 mg oral capsule 09-24 22:30: 00 Yes 4 mg = 2 cap, PO, Q8H, 0 Refill(s) [facility] HYDROcodone 10 mg oral capsule, extended release 09-24 22:29: 00 Yes 10 mg = 1 cap, PO, Q12H, 0 Refill(s) [facility] acetaminoph en 325 mg oral tablet. 09-24 22:29: 00 Yes 650 mg = 2 tab, PO, Q4H, 0 Refill(s) [facility] peg-electro lyte soln 236-22.74-6 .74 -5.86 gram solution 09-13 00:00: 00 05-13 00:00 :00 No Please follow 2 day bowel prep instructio ns provided by [facility] Endoscopy. [facility] QUETIAPINE 300 mg tablet 09-10 00:00: 00 12-10 00:00 :00 No [id number] 600mg TAKE 2 TABLETS BY MOUTH AT BEDTIME [facility] simethicone (GAS RELIEF (SIMETHICON E)) 40 mg/0.6 mL drops 09-09 15:30: 00 Yes PRN, Starting on Irene 09/10/23 at 1030, Until Discontinu ed, Routine, Intra-op [facility] ketorolac (TORADOL) injection 30 mg 08-29 21:30: 00 08-29 20:22 :00 No [id number] 30mg 30 mg, Intramuscu lar, ONCE, 1 dose, On 08/30/23 at 1630, Routine [facility] cyclobenzap rine 10 mg tablet 08-29 00:00: 00 12-16 00:00 :00 No [id number] 10mg Take 1 tablet by mouth 3 (three) times daily as needed for Muscle Spasms. [facility] tiZANidine 2 mg tablet 08-19 00:00: 00 11-25 00:00 :00 No [id number] 2mg Take 1-2 tablets by mouth 3 (three) times daily as needed (muscle spasm/pain ). [facility] bupivacaine (preserv free) (SENSORCAIN E MPF) 0.25 % (2.5 mg/mL) injection 4 mL 08-17 19:30: 00 08-17 18:21 :00 No [id number] 4mL 4 mL, Infiltrati on, ONCE, 1 dose, On Thu08/18/23 at 1430, Routine [facility] lidocaine 1% (PF) (XYLOCAINE) injection 4.5 mL 08-17 19:15: 00 08-17 18:22 :00 No [id number] 9103 4.5mL 4.5 mL, Infiltrati on, ONCE, 1 dose, On Thu08/18/23 at 1415, Routine [facility] dexamethaso ne (DECADRON) injection 10 mg 08-17 19:15: 00 08-17 18:22 :00 No [id number] 9103 10mg 10 mg, Infiltrati on, ONCE, 1 dose, On Thu08/18/23 at 1415, Routine [facility] sodium bicarbonate 1 mEq/mL (8.4 %) injection 0.5 mL 08-17 19:15: 00 08-17 18:22 :00 No [id number] 9103 .5mL 0.5 mL, Infiltrati on, ONCE, 1 dose, On Thu08/18/23 at 1415, Routine [facility] midazolam (VERSED) injection 08-17 18:19: 00 08-17 18:19 :00 No TITRATE - FOR PROCEDURE USE, 1 dose, Starting on Thu08/18/23 at 1319, Until Thu08/18/23 at 1319, Routine [facility] FENTanyl PF (SUBLIMAZE (PF)) injection 08-17 18:17: 00 08-17 18:17 :00 No TITRATE - FOR PROCEDURE USE, 1 dose, Starting on Thu08/18/23 at 1317, Until Thu08/18/23 at 1317, Routine [facility] midazolam (VERSED) injection 08-17 18:16: 00 08-17 18:16 :00 No TITRATE - FOR PROCEDURE USE, 1 dose, Starting on Thu08/18/23 at 1316, Until Thu08/18/23 at 1316, Routine [facility] midazolam (VERSED) injection 08-17 18:10: 00 08-17 18:10 :00 No TITRATE - FOR PROCEDURE USE, 1 dose, Starting on Thu08/18/23 at 1310, Until Thu08/18/23 at 1310, Routine [facility] lactated ringers IV infusion 500 mL 08-17 18:00: 00 08-17 18:58 :00 No [id number] 9103 500mL at 20 mL/hr, 500 mL, IV Infusion, ONCE, 1 dose, On Thu08/18/23 at 1300, Routine [facility] ibuprofen 800 mg tablet 07-29 00:00: 00 12-16 00:00 :00 No [id number] 800mg Take 1 tablet by mouth every 8 (eight) hours as needed for Pain (scale 4-6). [facility] methocarbam oL (ROBAXIN) tablet 1,000 mg 07-26 01:15: 00 07-26 01:15 :00 No 1000mg 1,000 mg, Oral, ONCE, 1 dose, On Thu07/26/23 at 2015, [facility] HYDROcodone -acetaminop hen (NORCO) 10-325 mg tablet 1 tablet 07-26 01:07: 00 07-26 01:15 :00 No 1{tbl} 1 tablet, Oral, ONCE, 1 dose, On Thu07/26/23 at 2015, [facility] FENTanyl PF (SUBLIMAZE (PF)) injection 25 mcg 07-25 22:15: 00 07-25 22:28 :00 No 25ug 25 mcg, Intramuscu lar, ONCE, 1 dose, On Thu07/26/23 at 1715, STAT [facility] proMETHazin e (PHENERGAN) tablet 25 mg 07-25 20:15: 00 07-25 20:14 :00 No 25mg 25 mg, Oral, ONCE, 1 dose, On 07/26/23 at 1515, [facility] HYDROcodone -acetaminop hen (NORCO 5) 5-325 mg tablet 1 tablet 07-25 20:15: 00 07-25 20:14 :00 No 1{tbl} 1 tablet, Oral, ONCE, 1 dose, On 07/26/23 at 1515, [facility] HYDROcodone -acetaminop hen 7.5-325 mg per tablet 07-25 00:00: 00 07-29 00:00 :00 No [id number] 1{tbl} Take 1 tablet by mouth every 6 (six) hours as needed for Pain for up to 7 days. Indication s: acute pain [facility] QUEtiapine 300 mg tablet 07-13 00:00: 00 09-10 00:00 :00 No [id number] 600mg Take 2 tablets by mouth at bedtime. [facility] peg-electro lyte soln 236-22.74-6 .74 -5.86 gram solution 07-07 00:00: 00 08-17 00:00 :00 No [id number] Take as directed before colonoscop y [facility] buPROPion XL (WELLBUTRIN XL) 150 mg 24 hr tablet 06-30 00:00: 00 07-29 00:00 :00 No [id number] 150mg Take 1 tablet by mouth in the morning. [facility] FENTanyl PF (SUBLIMAZE (PF)) injection 06-28 19:40: 25 06-28 19:40 :25 No TITRATE - FOR PROCEDURE USE, 1 dose, Starting on Thu06/29/23 at 1440, Until Thu06/29/23 at 1440, Routine [facility] midazolam (VERSED) injection 06-28 19:39: 41 06-28 19:39 :41 No TITRATE - FOR PROCEDURE USE, 1 dose, Starting on Thu06/29/23 at 1439, Until Thu06/29/23 at 1439, Routine [facility] midazolam (VERSED) injection 06-28 19:30: 00 06-28 19:30 :00 No TITRATE - FOR PROCEDURE USE, 1 dose, Starting on Thu06/29/23 at 1430, Until Thu06/29/23 at 1430, Routine [facility] bupivacaine (preserv free) (SENSORCAIN E MPF) 0.25 % (2.5 mg/mL) injection 20 mL 06-28 19:30: 00 06-28 19:47 :00 No [id number] 20mL [facility] lidocaine 1% (PF) (XYLOCAINE) injection 10 mL 06-28 19:30: 00 06-28 19:47 :00 No [id number] 10mL [facility] methylPREDN ISolone acetate (DEPO-MEDRO L) injection 80 mg 06-28 19:30: 00 06-28 19:47 :00 No [id number] 80mg [facility] sodium bicarbonate 1 mEq/mL (8.4 %) injection 1 mL 06-28 19:30: 00 06-28 19:48 :00 No [id number] 1mL [facility] lactated ringers IV infusion 500 mL 06-28 19:15: 00 06-28 19:20 :00 No [id number] 500mL [facility] lactobacill us acidophilus tablet 1 mg 06-03 00:00: 00 06-03 00:51 :00 No 1mg 1 mg, Oral, ONCE NOW, 1 dose, On Thu06/02/23 at 1800, [facility] loperamide (IMODIUM A-D) capsule 4 mg 06-03 00:00: 00 06-02 23:10 :00 No 4mg 4 mg, Oral, ONCE NOW, 1 dose, On 2/27/24 at 1800, Routine [facility] iopamidol (ISOVUE 370-500 mL) injection 80 mL 06-02 23:45: 00 06-02 23:45 :00 No [id number] 80mL 80 mL, Intravenou s, ONCE, 1 dose, On Thu06/02/23 at 1745, Routine [facility] hyoscyamine sulfate (LEVSIN/SL) sublingual tablet 0.25 mg 06-02 22:30: 00 06-02 23:00 :00 No .25mg 0.25 mg, Sublingual , ONCE NOW, 1 dose, On Thu06/02/23 at 1630, Routine [facility] NaCl 0.9% (NS) bolus infusion 1,000 mL 06-02 22:15: 00 06-03 00:50 :00 No 1000mL at 999 mL/hr, 1,000 mL, IV Piggyback, ONCE, 1 dose, On Thu06/02/23 at 1615, STAT [facility] hyoscyamine sulfate (LEVSIN/SL) 0.125 mg sublingual tablet 06-02 00:00: 00 07-07 00:00 :[id number] 2 tablets under the tongue every 6 (six) hours as needed (Abdominal pain or cramping). [facility] Saccharomyc es boulardii (FLORASTOR) 250 mg capsule 06-02 00:00: 00 07-07 00:00 :00 No [id number] 250mg Take 1 capsule by mouth in the morning and 1 capsule in the evening. [facility] Bismuth Subsalicyla te (KAOPECTATE EX STR, BISMUTH SS,) 525 mg/15 mL suspension 06-02 00:00: 00 07-07 00:00 :00 No [id number] 15mL Take 15 mL by mouth in the morning and 15 mL in the evening. [facility] Oral Electrolyte s (PEDIALYTE ADVANCED CARE) solution 06-02 00:00: 00 07-07 00:00 :00 No [id number] 500mL Take 500 mL by mouth every 6 (six) hours. [facility] loperamide 2 mg capsule 06-02 00:00: 00 07-07 00:00 :00 No [id number] 4mg Take 2 capsules by mouth 3 (three) times daily as needed for Diarrhea. [facility] buPROPion XL (WELLBUTRIN XL) 150 mg 24 hr tablet 06-01 00:00: 00 06-28 00:00 :00 No [id number] 150mg Take 1 tablet by mouth in the morning. [facility] acetaminoph en-codeine 300 mg-60 mg oral tablet 2022-04 17:07: 00 Yes 1 tab, 0 Refill(s) [facility] buPROPion 150 mg/24 hours (XL) oral tablet, extended release 2022-04 17:07: 00 Yes 0 Refill(s) [facility] QUEtiapine 300 mg oral tablet 2022-04 17:07: 00 Yes 0 Refill(s) [facility] SERTraline 100 mg tablet 2022-04 00:00: 00 12-10 00:00 :00 No [id number] 200mg Take 2 tablets by mouth every morning. [facility] QUEtiapine 300 mg tablet 2022-04 00:00: 00 07-12 00:00 :00 No [id number] 600mg Take 2 tablets by mouth at bedtime. [facility] buPROPion XL (WELLBUTRIN XL) 150 mg 24 hr tablet 2022-04 00:00: 00 05-30 00:00 :00 No [id number] 150mg Take 1 tablet by mouth in the morning. [facility] methylPREDN ISolone (Medrol Dospak) 4 MG tablets 2022-04 00:00: 00 Yes [id number] 9105 Use as directed by package instructio [facility] fluticasone propionate 50 mcg/actuati on nasal spray 2022-04 00:00: 00 07-07 00:00 :00 No [id number] 2{spray } Use 2 Sprays in each nostril in the morning. [facility] cetirizine 10 mg tablet 2022-04 00:00: 00 07-07 00:00 :00 No [id number] 10mg Take 1 tablet by mouth in the morning. [facility] QUEtiapine 300 mg tablet 2022-04 00:00: 04-02 00:00 :00 No [id number] 600mg Take 2 tablets by mouth at bedtime. [facility] meloxicam (Mobic) 15 MG tablet 2022-04 00:00: 00 Yes [id number] 15mg QD TAKE 1 TABLET (15 MG TOTAL) BY MOUTH ONE TIME EACH DAY. [facility] pregabalin (Lyrica) 100 MG capsule 2022-04 00:00: 00 Yes [id number] 100mg [id number] 3D Take 1 capsule (100 mg total) by mouth in the morning and 1 capsule (100 mg total) at noon and 1 capsule (100 mg total) in the evening. Do all this for 10 days. [facility] methylPREDN ISolone (Medrol Dospak) 4 MG tablets 2022-04 00:00: 00 03-27 00:00 :00 No [id number] Use as directed by package instructio ns [facility] meloxicam (Mobic) 15 MG tablet 2022-04 00:00: 00 03-09 05:59 :00 No [id number] 15mg QD Take 1 tablet (15 mg total) by mouth 1 (one) time each day. [facility] QUEtiapine 300 mg tablet 2022-04 11:19: 23 02-05 00:00 :00 No 600mg Take 2 tablets by mouth at bedtime. [facility] buPROPion XL (WELLBUTRIN XL) 150 mg 24 hr tablet 2022-04 00:00: 00 04-02 00:00 :00 No [id number] 150mg Take 1 tablet by mouth in the morning. [facility] QUEtiapine 300 mg tablet 2022-04 00:00: 00 03-11 00:00 :00 No [id number] 600mg Take 2 tablets by mouth at bedtime for 60 days. [facility] tiZANidine 2 mg tablet 2022-04 0-30 00:00: 00 08-18 00:00 :00 No [id number] 2mg TAKE 1-2 TABLETS BY MOUTH 3 (THREE) TIMES DAILY NEEDED (MUSCLE SPASM/PAIN ). [facility] QUEtiapine 300 mg tablet 2022-04 0-27 08:12: 56 Yes 600mg Take 2 tablets by mouth at bedtime. [facility] bupivacaine (preserv free) (SENSORCAIN E MPF) 0.25 % (2.5 mg/mL) injection 19 mL 2022-0420 19:03: 00 01-23 19:06 :00 No [id number] 19mL [facility] lidocaine 1% (PF) (XYLOCAINE) injection 5 mL 2022-04 19:03: 01-23 19:06 :00 No [id number] 5mL [facility] sodium bicarbonate 1 mEq/mL (8.4 %) injection 1 mL 2022-0420 19:03: 01-23 19:07 :00 No [id number] 1mL [facility] methylPREDN ISolone acetate (DEPO-MEDRO L) injection 40 mg 2022-0420 19:03: 00 01-23 19:06 :00 No [id number] 40mg [facility] lactated ringers IV infusion 500 mL 2022-04 020 19:00: 00 01-23 19:30 :00 No [id number] 500mL [facility] buPROPion XL (WELLBUTRIN XL) 150 mg 24 hr tablet 2022-04 00:00: 00 02-04 00:00 :00 No [id number] 150mg Take 1 tablet by mouth in the morning. [facility] Thyroid, Pork, (ARMOUR THYROID) 90 mg tablet 2022-04 0-04 00:00: 00 07-07 00:00 :00 No [id number] TAKE 1 TAB DAILY EVERY OTHER DAY AND 1 & 1/2 TABS DAILY EVERY OTHER DAY. [facility] dicyclomine (BENTYL) injection 20 mg 12-16 07:45: 00 12-16 06:40 :00 No 20mg 20 mg, Intramuscu lar, ONCE, 1 dose, [facility]12/16/22 [facility] 0245[facility] (REGLAN) injection 5 mg 12-16 06:45: 00 12-16 06:41 :00 No 5mg 5 mg, Slow IV Push, ONCE, 1 dose, On Thu12/16/22 at 0145, [facility] famotidine (PEPCID (PF)) injection 20 mg 12-16 06:45: 00 12-16 06:41 :00 No 20mg 20 mg, Slow IV Push, ONCE, 1 dose, [facility] Thu12/16/22 at 0145[facility] NaCl 0.9% (NS) bolus infusion 1,000 mL 12-16 06:15: 00 12-16 07:31 :00 No 1000mL at 999 mL/hr, 1,000 mL, IV Infusion, ONCE, 1 dose, On Thu12/16/22 at 0115, STAT [facility] NaCl 0.9% (NS) bolus infusion 1,000 mL 12-16 05:45: 00 12-16 06:50 :00 No 1000mL at 999 mL/hr, 1,000 mL, IV Infusion, ONCE, 1 dose, On Thu12/16/22 at 0045, STAT [facility] ketorolac (TORADOL) injection 30 mg 12-16 05:30: 00 12-16 04:55 :00 No 30mg 30 mg, Slow IV Push, ONCE, 1 dose, On Thu12/16/22 at 0030, Routine [facility] proMETHazin e (PHENERGAN) 12.5 mg in NaCl 0.9% (NS) 50 mL IV piggyback 12-16 04:45: 00 12-16 04:55 :00 No 12.5mg 12.5 mg, IV Piggyback, ONCE, 1 dose, On Thu12/15/22 at 2345, [facility] proMETHazin e 12.5 mg suppository 12-16 00:00: 00 07-29 00:00 :00 No [id number] 12.5mg Insert 1 Suppositor y into rectum every 4 (four) hours as needed for N/V unresponsi ve to oral antiemetic s. [facility] dicyclomine 20 mg tablet 12-16 00:00: 00 01-30 00:00 :00 No [id number] 20mg Take 1 tablet by mouth 4 (four) times daily as needed for Abdominal pain. [facility] metoclopram geoffrey HCl 10 mg tablet 12-16 00:00: 00 01-30 00:00 :00 No [id number] 10mg Take 1 tablet by mouth every 6 (six) hours as needed for Nausea and Vomiting (N/V). [facility] buPROPion XL (WELLBUTRIN XL) 150 mg 24 hr tablet 12-06 00:00: 00 01-13 00:00 :00 No [id number] 150mg Take 1 tablet by mouth in the morning. [facility] benzonatate 100 mg capsule 11-26 00:00: 00 12-30 00:00 :00 No [id number] 200mg Take 2 capsules by mouth every 8 (eight) hours as needed for Cough. [facility] bromphenira mine-pseudo ephedrine-D M (BROMFED DM) 2-30-10 mg/5 mL syrup 11-26 00:00: 00 12-30 00:00 :00 No [id number] 5mL Take 5 mL by mouth 4 (four) times daily as needed for Congestion /Allergies . [facility] guaiFENesin 400 mg tablet 11-26 00:00: 00 12-30 00:00 :00 No [id number] 400mg Take 1 tablet by mouth every 4 (four) hours as needed for Cough. [facility] buPROPion XL (WELLBUTRIN XL) 150 mg 24 hr tablet 11-07 00:00: 00 Yes [id number] 150mg Take 1 tablet by mouth in the morning. [facility] hydrOXYzine 50 mg capsule 11-07 00:00: 00 07-29 00:00 :00 No [id number] 50mg Take 1 capsule by mouth 2 (two) times daily as needed for Anxiety. [facility] QUEtiapine (SEROQUEL) 200 mg tablet 11-07 00:00: 00 01-07 04:59 :00 No [id number] 400mg Take 2 tablets by mouth at bedtime for 60 days. [facility] tiZANidine 2 mg tablet 11-06 00:00: 00 02-02 00:00 :00 No [id number] 2mg Take 1-2 tablets by mouth 3 (three) times daily as needed (muscle spasm/pain ). [facility] bupivacaine (preserv free) 0.5% (SENSORCAIN E MPF) injection 19 mL 11-03 15:52: 00 11-03 15:54 :00 No [id number] 19mL [facility] methylPREDN ISolone acetate (DEPO-MEDRO L) injection 40 mg 11-03 15:52: 00 11-03 15:54 :00 No [id number] 40mg [facility] lidocaine 1% (PF) (XYLOCAINE) injection 10 mL 11-03 15:52: 00 11-03 15:54 :00 No [id number] 10mL [facility] midazolam (VERSED) injection 11-03 15:49: 00 11-03 15:49 :00 No IV Push, TITRATE - FOR PROCEDURE USE, 1 dose, Starting on Thu11/03/22 at 1049, Until Thu11/03/22 at 1049, Routine [facility] midazolam (VERSED) injection 11-03 15:42: 00 11-03 15:42 :00 No IV Push, TITRATE - FOR PROCEDURE USE, 1 dose, Starting on Thu11/03/22 at 1042, Until Thu11/03/22 at 1042, Routine [facility] FENTanyl PF (SUBLIMAZE (PF)) injection 11-03 15:42: 00 11-03 15:42 :00 No Slow IV Push, TITRATE - FOR PROCEDURE USE, 1 dose, Starting on Thu11/03/22 at 1042, Until Thu11/03/22 at 1042, Routine [facility] midazolam (VERSED) injection 11-03 15:36: 00 11-03 15:36 :00 No IV Push, TITRATE - FOR PROCEDURE USE, 1 dose, Starting on Thu11/03/22 at 1036, Until Thu11/03/22 at 1036, Routine [facility] lactated ringers IV infusion 500 mL 11-03 14:45: 00 11-03 16:10 :00 No [id number] 500mL [facility] SERTraline (ZOLOFT) tablet 200 mg 10-29 14:00: 00 Yes [id number] 200mg 200 mg, Oral, QAM, First dose on Thu10/29/22 at 0900, Until Discontinu ed, Routine [facility] thyroid (ARMOUR THYROID) tablet 90 mg 10-29 11:00: 00 Yes [id number] 90mg 90 mg, Oral, QAM-0600, First dose on Thu10/29/22 at 0600, [facility] (PAMELOR[facility] capsule 100 mg 10-29 03:00: 00 Yes 100mg 100 mg, Oral, QHS, First dose on Thu10/28/22 at 2200, Until Discontinu ed, [facility] QUE[facility] (SEROQUEL) tablet 600 mg 10-29 02:00: 00 Yes [id number] 600mg 600 mg, Oral, QHS, First dose on Thu10/28/22 at 2100, Until Discontinu ed, Routine [facility] acetaminoph en-codeine (TYLENOL #4) 300-60 mg tablet 1 tablet 10-28 19:00: 00 Yes [id number] 1{tbl} 1 tablet, Oral, TID, First dose on Thu10/28/22 at 1400, Until Discontinu ed, Routine [facility] baclofen (LIORESAL) tablet 10 mg 10-28 15:43: 22 Yes [id number] 10mg 10 mg, Oral, TIDPRN, Starting on Thu10/28/22 at 1043, Until Discontinu ed, Routine, Pain (scale 4-6) [facility] hydrOXYzine (ATARAX) tablet 50 mg 10-28 15:43: 21 Yes [id number] 50mg 50 mg, Oral, Q8HPRN, Starting on Thu10/28/22 at 1043, Until Discontinu ed, Anxiety [facility] proMETHazin e (PHENERGAN) tablet 25 mg 10-28 15:42: 15 Yes [id number] 25mg 25 mg, Oral, Q6HPRN, Starting on Thu10/28/22 at 1042, Until Discontinu ed, Routine, Nausea and Vomiting (N/V) [facility] dexamethaso ne sod phos PF injection 10 mg 10-09 02:30: 00 10-09 01:43 :01 No [id number] 10mg [facility] albuterol (PROVENTIL) 2.5 mg /3 mL (0.083 %) nebulizer solution 2.5 mg 10-09 02:30: 00 10-09 01:45 :00 No [id number] 2.5mg [facility] QUEtiapine 300 mg tablet 10-09 00:00: 00 11-07 00:00 :00 No [id number] 600mg Take 2 tablets by mouth at bedtime. [facility] albuterol 90 mcg/actuati on inhaler 10-08 00:00: 00 07-07 00:00 :00 No [id number] 2{puff} Inhale 2 Puffs every 6 (six) hours as needed for Chest tightness or Wheezing. [facility] cetirizine 10 mg tablet 10-08 00:00: 00 07-07 00:00 :00 No [id number] 10mg Take 1 tablet by mouth in the morning. [facility] fluticasone propionate 50 mcg/actuati on nasal spray 10-08 00:00: 00 07-07 00:00 :00 No [id number] 2{spray } Use 2 Sprays in each nostril in the morning. [facility] bromphenira mine-pseudo ephedrine-D M (BROMFED DM) 2-30-10 mg/5 mL syrup 10-08 00:00: 00 11-26 00:00 :00 No [id number] 5mL Take 5 mL by mouth 3 (three) times daily as needed for Cold symptoms or Cough. [facility] predniSONE 20 mg tablet 10-08 00:00: 00 10-14 04:59 :00 No [id number] 20mg Take 1 tablet by mouth in the morning and 1 tablet in the evening. Do all this for 5 days. [facility] butalbital- acetaminop- caff-codein e 50-300-40-3 0 mg per capsule 10-02 14:37: 58 10-02 00:00 :00 No Take by mouth. [facility] acetaminoph en-codeine 300-60 mg tablet 10-02 00:00: 00 07-07 00:00 :00 No [id number] 1{tbl} Take 1 tablet by mouth 4 (four) times daily as needed for Pain. Indication s: chronic pain [facility] SERTRALINE 100 mg tablet 09-30 00:00: 00 04-02 00:00 :00 No [id number] TAKE 2 TABLETS BY MOUTH EVERY MORNING [facility] dexamethaso ne (DECADRON) injection 10 mg 09-29 19:23: 00 09-29 19:24 :00 No [id number] 10mg [facility] bupivacaine (preserv free) (SENSORCAIN E MPF) 0.25 % (2.5 mg/mL) injection 9 mL 09-29 19:22: 00 09-29 19:24 :00 No [id number] 9mL [facility] FENTanyl PF (SUBLIMAZE (PF)) injection 09-29 19:18: 06 09-29 19:18 :06 No Slow IV Push, TITRATE - FOR PROCEDURE USE, 1 dose, Starting on Thu09/29/22 at 1418, Until Thu09/29/22 at 1418, Routine [facility] FENTanyl PF (SUBLIMAZE (PF)) injection 09-29 19:18: 00 09-29 19:18 :00 No Slow IV Push, TITRATE - FOR PROCEDURE USE, 1 dose, Starting on Thu09/29/22 at 1418, Until Thu09/29/22 at 1418, Routine [facility] midazolam (VERSED) injection 09-29 19:15: 39 09-29 19:15 :39 No IV Push, TITRATE - FOR PROCEDURE USE, 1 dose, Starting on Thu09/29/22 at 1415, Until Thu09/29/22 at 1415, Routine [facility] lactated ringers IV infusion 500 mL 09-29 19:15: 00 09-29 19:50 :00 No [id number] 500mL [facility] FENTanyl PF (SUBLIMAZE (PF)) injection 09-29 19:15: 00 09-29 19:15 :00 No Slow IV Push, TITRATE - FOR PROCEDURE USE, 1 dose, Starting on Thu09/29/22 at 1415, Until Thu09/29/22 at 1415, Routine [facility] midazolam (VERSED) injection 09-29 19:12: 00 09-29 19:12 :00 No IV Push, TITRATE - FOR PROCEDURE USE, 1 dose, Starting on Thu09/29/22 at 1412, Until Thu09/29/22 at 1412, Routine [facility] benzonatate 200 mg capsule 09-29 00:00: 00 10-08 00:00 :00 No [id number] 200mg Take 1 capsule by mouth 3 (three) times daily as needed for Cough for up to 10 days. [facility] SERTraline (ZOLOFT) 100 mg tablet 09-04 00:00: 00 09-30 00:00 :00 No [id number] 200mg Take 2 tablets by mouth in the morning. [facility] lidocaine 1% (PF) (XYLOCAINE) injection 5 mL 07-28 19:30: 00 07-28 19:22 :00 No 5mL [facility] bupivacaine (preserv free) 0.5% (SENSORCAIN E MPF) 0.5 % (5 mg/mL) injection 19 mL 07-28 19:30: 00 07-28 19:18 :00 No 19mL [facility] methylPREDN ISolone acetate (DEPO-MEDRO L) injection 40 mg 07-28 19:10: 00 07-28 19:22 :00 No 40mg [facility] lactated ringers IV infusion 500 mL 07-28 18:00: 00 07-28 19:45 :00 No 500mL [facility] SERTraline (ZOLOFT) 100 mg tablet 07-21 00:00: 00 09-04 00:00 :00 No [id number] 200mg Take 2 tablets by mouth in the morning. [facility] acetaminoph en-codeine 300-60 mg tablet 07-11 16:53: 16 07-11 00:00 :00 No 1{tbl} Take 1 tablet by mouth every 4 (four) hours as needed for Pain. [facility] butalbital- acetaminop- caff-codein e 50-300-40-3 0 mg per capsule 07-11 15:34: 19 Yes Take by mouth. [facility] nortriptyli ne 50 mg capsule 07-11 00:00: 00 01-30 00:00 :00 No [id number] 150mg Take 3 capsules by mouth at bedtime. For migraine prophylaxi s [facility] Thyroid, Pork, (ARMOUR THYROID) 90 mg tablet 07-11 00:00: 00 01-07 00:00 :00 No [id number] TAKE 1 TAB DAILY EVERY OTHER DAY AND 1 & 1/2 TABS DAILY EVERY OTHER DAY. [facility] baclofen 10 mg tablet 07-11 00:00: 00 12-30 00:00 :00 No [id number] 10mg Take 1 tablet by mouth in the morning and 1 tablet at noon and 1 tablet in the evening. [facility] acetaminoph en-codeine 300-60 mg tablet 07-11 00:00: 00 10-02 00:00 :00 No [id number] 1{tbl} Take 1 tablet by mouth every 4 (four) hours as needed for Pain. Indication s: chronic pain [facility] ESTRADIOL 0.1 mg/24 hr twice weekly patch 06-26 00:00: 00 11-26 00:00 :00 No [id number] 1{patch } APPLY 1 PATCH TO SKIN 2 (TWO) TIMES WEEKLY ON THURSDAY AND THURSDAY. [facility] ARMOUR THYROID 90 mg tablet 06-23 00:00: 00 07-11 00:00 :00 No [id number] TAKE 1 TAB DAILY EVERY OTHER DAY AND 1 & 1/2 TABS DAILY EVERY OTHER DAY. [facility] acetaminoph en-codeine (TYLENOL-CO DEINE #4) 300-60 mg tablet 14 13:55: 26 Yes 1{tbl} Take 1 tablet by mouth every 4 (four) hours as needed for Pain. [facility] butalbital- acetaminop- caff-codein e 50-300-40-3 0 mg per capsule 06-17 13:55: 26 Yes Take by mouth. [facility] cholecalcif rose, vitamin D3, 25 mcg (1,000 unit) tablet 06-17 13:47: 03 06-17 00:00 :00 No 1000U Take 1,000 Units by mouth daily. [facility] QUETIAPINE 300 mg tablet 06-15 00:00: 00 10-09 00:00 :00 No [id number] 600mg TAKE 2 TABLETS BY MOUTH AT BEDTIME [facility] benzonatate 100 mg capsule 05-08 00:00: 00 06-17 00:00 :00 No [id number] 100mg Take 1 capsule by mouth every 8 (eight) hours as needed for Cough. [facility] Methylpredn isolone 4 mg tablet 05-08 00:00: 00 05-14 05:59 :00 No [id number] 4mg Take 1 tablet by mouth every 12 (twelve) hours for 5 days. [facility] lidocaine 1% (PF) (XYLOCAINE) injection 10 mL 04-28 20:15: 00 04-28 19:10 :00 No [id number] 10mL [facility] sodium bicarbonate 1 mEq/mL (8.4 %) injection 1 mL 04-28 20:15: 00 04-28 19:12 :00 No [id number] 1mL [facility] lactated ringers IV infusion 500 mL 04-28 16:00: 00 04-28 15:59 :00 No [id number] 500mL [facility] BACLOFEN 5 mg tablet 04-23 00:00: 00 07-11 00:00 :00 No [id number] 10mg TAKE 2 TABLETS BY MOUTH IN THE MORNING AND 2 TABLETS AT NOON AND 2 TABLETS IN THE EVENING. [facility] butalbital- aspirin-caf feine-codei ne (ASCOMP WITH CODEINE) per capsule 04-15 00:00: 00 10-02 00:00 :00 No [id number] 1{capsu le} Take 1 capsule by mouth every 8 (eight) hours as needed for Pain. Indication s: chronic pain [facility] QUEtiapine 300 mg tablet 2021-04 00:00: 00 Yes [id number] 600mg Take 2 tablets by mouth at bedtime. [facility] SERTraline (ZOLOFT) 100 mg tablet 2021-04 00:00: 00 07-21 00:00 :00 No [id number] 200mg Take 2 tablets by mouth in the morning. [facility] hydrOXYzine 50 mg capsule 2021-04 00:00: 00 11-07 00:00 :00 No [id number] 50mg Take 1 capsule by mouth 2 (two) times daily as needed for Anxiety. [facility] nortriptyli ne 50 mg capsule 2021-04 00:00: 00 07-11 00:00 :00 No [id number] 150mg Take 3 capsules by mouth at bedtime. For migraine prophylaxi s [facility] ARMOUR THYROID 90 mg tablet 2021-04 00:00: 00 06-23 00:00 :00 No [id number] TAKE 1 TAB DAILY EVERY OTHER DAY AND 1 & 1/2 TABS DAILY EVERY OTHER DAY. [facility] PROMETHAZIN E 25 mg tablet 2021-04 00:00: 00 10-08 00:00 :00 No [id number] PROMETHAZI NE 25 MG TABLET TAKE 1 TABLET EVERY 6-8 HOURS BY ORAL ROUTE. [facility] ASCOMP WITH CODEINE per capsule 2021-04 00:00: 00 04-09 00:00 :00 No [id number] TAKE 1 CAPSULE BY MOUTH EVERY 8 (EIGHT) HOURS NEEDED FOR PAIN. INDICATION S: CHRONIC PAIN [facility] methylPREDN ISolone acetate (DEPO-MEDRO L) injection 40 mg 2021-04 18:15: 00 02-17 16:07 :00 No [id number] 40mg [facility] triamcinolo ne acetonide (KENALOG) injection 40 mg 2021-04 17:15: 00 02-18 05:14 :00 No [id number] 40mg [facility] bupivacaine (preserv free) 0.5% (SENSORCAIN E MPF) 0.5 % (5 mg/mL) injection 19 mL 2021-04 17:15: 00 02-17 16:06 :00 No [id number] 19mL [facility] lactated ringers IV infusion 500 mL 2021-04 16:15: 00 02-17 15:00 :00 No [id number] 500mL [facility] acetaminoph en-codeine 300-60 mg tablet 2021-04 00:00: 00 06-17 00:00 :00 No [id number] 2{tbl} Take 2 tablets by mouth in the morning and 2 tablets at noon and 2 tablets in the evening. For chronic knee pain, back pain, and other body pain Indication s: chronic pain [facility] baclofen 5 mg tablet 2021-04 00:00: 00 04-23 00:00 :00 No [id number] 10mg Take 2 tablets by mouth in the morning and 2 tablets at noon and 2 tablets in the evening. [facility] diphenhydrA MINE (BENADRYL) injection 25 mg 2021-04 17:15: 00 02-07 17:02 :00 No [id number] 25mg 25 mg, Slow IV Push, ONCE, 1 dose, On Thu02/07/22 at 1215, Routine [facility] ketorolac (TORADOL) injection 30 mg 2021-04 17:15: 00 02-07 17:02 :00 No [id number] 30mg 30 mg, Slow IV Push, ONCE, 1 dose, On Thu02/07/22 at 1215, Routine [facility] metoclopram geoffrey HCl (REGLAN) injection 10 mg 2022-1 1-04 16:30: 00 02-07 17:02 :00 No [id number] 10mg 10 mg, Slow IV Push, ONCE, 1 dose, On Thu02/07/22 at 1130, [place] [facility] iopamidol (ISOVUE 370-500 mL) injection 100 mL 2021-04 16:30: 00 02-07 16:30 :00 No [id number] 100mL 100 mL, Intravenou s, ONCE, 1 dose, On Thu02/07/22 at 1130, Routine [facility] NaCl 0.9% (NS) injection 5 mL 2021-04 15:29: 34 Yes [id number] 5mL 5 mL, Slow IV Push, PRN - SEE INSTRUCTIO NS, Starting on Thu02/07/22 at 1029, Until Discontinu ed, 10 mL [facility] butalbital- aspirin-caf feine-codei ne (ASCOMP WITH CODEINE) per capsule 2021-04 0-25 00:00: 00 03-02 00:00 :00 No [id number] 1{capsu le} Take 1 capsule by mouth every 8 (eight) hours as needed for Pain. Indication s: chronic pain [facility] sulfamethox azole-trime thoprim (BACTRIM DS) 800-160 mg per tablet 2021-04 0-07 00:00: 00 01-18 04:59 :00 No [id number] 1{tbl} Take 1 tablet by mouth in the morning and 1 tablet in the evening. Do all this for 7 days. [facility] sulfamethox azole-trime thoprim (BACTRIM DS) 800-160 mg per tablet 2021-04 0-04 00:00: 00 01-15 04:59 :00 No [id number] 1{tbl} Take 1 tablet by mouth in the morning and 1 tablet in the evening. Do all this for 7 days. [facility] benzonatate 200 mg capsule 9-06 00:00: 00 06-17 00:00 :00 No [id number] 200mg Take 1 capsule by mouth 3 (three) times daily as needed for Cough. [facility] QUEtiapine 300 mg tablet 12-05 00:00: 00 04-03 00:00 :00 No [id number] 600mg Take 2 tablets by mouth at bedtime. [facility] GABAPENTIN 300 mg capsule 11-25 00:00: 00 06-17 00:00 :00 No [id number] TAKE 3 CAPSULES BY MOUTH 3 TIMES DAILY. [facility] liraglutide , weight loss, 3 mg/0.5 mL (18 mg/3 mL) PnIj 11-19 00:00: 00 06-17 00:00 :00 No [id number] 3mg inject 3 mg under the skin in the morning. [facility] estradioL 0.1 mg/24 hr twice weekly patch 11-04 00:00: 00 06-25 00:00 :00 No [id number] 1{patch } Apply 1 Patch to skin 2 (two) times weekly on Thursday and . [facility] cholecalcif rose, vitamin D3, 25 mcg (1,000 unit) tablet 11-01 15:01: 15 Yes 1000U Take 1,000 Units by mouth daily. [facility] ARMOUR THYROID 90 mg tablet 10-30 00:00: 00 03-28 00:00 :00 No [id number] TAKE 1 TAB DAILY EVERY OTHER DAY AND 1 & 1/2 TABS DAILY EVERY OTHER DAY. [facility] SERTraline 100 mg tablet 10-29 00:00: 00 04-03 00:00 :00 No [id number] 150mg Take 1.5 tablets by mouth in the morning. [facility] NORTRIPTYLI NE 50 mg capsule 10-28 00:00: 00 03-31 00:00 :00 No [id number] 150mg TAKE 3 CAPSULES BY MOUTH AT BEDTIME. FOR MIGRAINE PROPHYLAXI S [facility] methocarbam oL 750 mg tablet 10-10 00:00: 00 06-17 00:00 :00 No TAKE 1 TABLET BY MOUTH 2 (TWO) TIMES DAILY NEEDED FOR PAIN (SCALE 4-6) FOR UP TO 30 DAYS. [facility] hydrOXYzine 50 mg capsule - 00:00: 00 04-01 00:00 :00 No [id number] 50mg Take 1 capsule by mouth 2 (two) times daily as needed for Anxiety. [facility] atorvastati n 20 mg tablet 09-17 08:45: 29 09-17 00:00 :00 No 20mg Take 20 mg by mouth at bedtime. [facility] proMETHazin e 25 mg tablet 09-17 00:00: 00 03-21 00:00 :00 No [id number] promethazi ne 25 mg tablet Take 1 tablet every 6-8 hours by oral route. [facility] baclofen 5 mg tablet 09-17 00:00: 00 02-10 00:00 :00 No [id number] 10mg Take 2 tablets by mouth 3 (three) times daily. [facility] acetaminoph en-codeine 300-60 mg tablet 09-17 00:00: 00 02-10 00:00 :00 No [id number] 2{tbl} Take 2 tablets by mouth 3 (three) times daily. For chronic knee pain, back pain, and other body pain Indication s: chronic pain [facility] QUEtiapine 300 mg tablet 09-04 00:00: 00 12-05 00:00 :00 No [id number] 600mg Take 2 tablets by mouth at bedtime. [facility] ASCOMP WITH CODEINE per capsule 08-26 00:00: 00 01-28 00:00 :00 No [id number] TAKE 1 CAPSULE BY MOUTH EVERY 4 HOURS NEEDED FOR PAIN. INDICATION S: CHRONIC PAIN, MIGRAINE [facility] lactulose 10 gram/15 mL solution 08-12 00:00: 00 06-17 00:00 :00 No [id number] 30mL Take 30 mL by mouth every 6 (six) hours as needed for Constipati on. [facility] verapamiL 120 mg 24 hr capsule 08-11 19:31: 31 08-11 00:00 :00 No 120mg Take 120 mg by mouth at bedtime. [facility] methocarbam oL (ROBAXIN-75 0) 750 mg tablet 08-06 00:00: 00 09-06 04:59 :00 No [id number] 750mg Take 1 tablet by mouth 2 (two) times daily as needed for Pain (scale 4-6) for up to 30 days. [facility] ARMOUR THYROID 90 mg tablet 07-29 00:00: 00 10-30 00:00 :00 No [id number] TAKE 1 TAB DAILY EVERY OTHER DAY AND 1 & 1/2 TABS DAILY EVERY OTHER DAY. [facility] quetiapine 06-14 23:00: 00 No Notes: (Same as: SEROquel) [facility] verapamil 120 mg oral capsule, extended release 06-14 17:55: 00 Yes 120 mg = 1 tab, PO, Bedtime, # 30 tab, 0 Refill(s), Pharmacy: [facility] #[id number], 170.18, cm, 06/13/21 17:55:00 [employer], Height, 97.7, kg, 06/13/21 17:55:00 [employer], Weight [facility] Zoloft 06-14 15:00: 00 No Notes: (Same as: Zoloft) [facility] atorvastati n 20 mg oral tablet 06-14 14:56: 00 Yes 20 mg = 1 tab, PO, Bedtime, # 30 tab, 0 Refill(s), Pharmacy: [facility] #[id number], 170.18, cm, 06/13/21 17:55:00 [employer], Height, 97.7, kg, 06/13/21 17:55:00 [employer], Weight [facility] Wallace Nortriptyli ne 06-14 03:00: 00 No Notes: (Same as:Pamelor Aventyl) [facility] verapamil 24 hour extended release 06-14 03:00: 00 No 100 mg, Route: PO, Drug form: ERCAP, Bedtime, Dosing Weight 97.7, kg, Start date: 06/13/21 21:00:00 [employer], Duration: 30 day, Stop date: 07/12/21 21:00:00 CDT [facility] Tylenol 06-13 23:25: 00 No Notes: Do not exceed 4 gm/day. (Same as: Tylenol) [facility] Morphine 06-13 23:25: 00 No Notes: (Same as:MORPhin e Sulfate) [facility] Hydralazine 06-13 23:25: 00 No Notes: (Same as: Apresoline ) Push over 5 minutes [facility] Acetaminoph en 300 MG / Codeine Phosphate 60 MG Oral Tablet [Tylenol with Codeine #4] 06-13 23:23: 00 No 1 tab, Route: PO, Drug Form: TAB, Dosing Weight 97.727, kg, Q6H, PRN Pain Score 4-6, Start date: 06/13/21 17:23:00 [employer], Duration: 30 day, Stop date: 07/13/21 17:22:00 CDT David [facility] Omnipaque 350 injectable solution 06-13 23:00: 00 No Notes: (same as:Omnipaq ue 350). WASTE: F/P - Black; E - [employer] [facility] Hydroxyzine 06-13 21:35: 00 Yes 50 mg = 1 tab, PO, TID, PRN as needed for anxiety, 0 Refill(s) [facility] Vitamin B12 1000 mcg oral tablet 06-13 21:35: 00 Yes 1,000 microgram = 1 tab, PO, Daily, # 30 tab, 0 Refill(s) [facility] Vitamin D3 1000 intl units oral tablet 06-13 21:35: 00 Yes 25 microgram = 1 tab, PO, Daily, # 30 tab, 0 Refill(s) Flavioharriet Seflann hydrOXYzine 06-13 21:35: 00 Yes 50 mg = 1 tab, PO, TID, PRN as needed for anxiety, 0 Refill(s) [facility] Baclofen 06-13 21:34: 00 Yes 10 mg, PO, TID, 0 Refill(s) [facility] gabapentin 06-13 21:34: 00 Yes 600 mg, PO, TID, 0 Refill(s) David Wallace 84 HR Estradiol 0.43579 MG/HR Transdermal Patch 06-13 21:33: 00 No 1 patch, TOP, 2x/Wk, # 8 patch, 0 Refill(s) [facility] Wallace [place] Thyroid 06-13 21:32: 00 Yes 135 mg, PO, Q48H, 0 Refill(s) [facility] Aspirin 06-13 20:31: 00 No Notes: Take with food. [facility] Sodium Chloride 0.9% (Bolus) IV 06-13 20:21: 00 No 1,000 mL, 1000 ml/hr, Infuse Over: 1 hr, Route: IV, 1,000, Drug form: INJ, ONCE, Priority: STAT, Dosing Weight 97.727 kg, Start date: 06/13/21 14:21:00 [employer], Stop date: 06/13/21 14:21:00 [employer], 0 [facility] Ativan 06-13 19:17: 00 No Notes: (Same as: Ativan) [facility] Saline Flush 0.9% 06-13 17:35: 00 No Notes: (Same as: BD Posiflush) [facility] Meclizine 06-13 17:35: 00 No 25 mg, Route: PO, Drug form: TAB, ONCE, Dosing Weight 100.2, kg, Priority: STAT, Start date: 06/13/21 11:35:00 [employer], Stop date: 06/13/21 11:35:00 [employer] Flavioharriet Wallace QUEtiapine 300 mg tablet - 00:00: 00 09-04 00:00 :00 No [id number] 600mg Take 2 tablets by mouth at bedtime. [facility] acetaminoph en-codeine 300-60 mg tablet 05-28 00:00: 00 09-17 00:00 :00 No [id number] 2{tbl} Take 2 tablets by mouth 3 (three) times daily. For chronic knee pain, back pain, and other body pain Indication s: chronic pain [facility] gabapentin 300 mg capsule 2- 00:00: 00 11-25 00:00 :00 No [id number] 900mg Take 3 capsules by mouth 3 (three) times daily. [facility] baclofen 5 mg tablet 05-03 00:00: 00 09-17 00:00 :00 No [id number] 10mg Take 2 tablets by mouth 3 (three) times daily. [facility] SERTraline 100 mg tablet 04-11 00:00: 00 10-29 00:00 :00 No [id number] 150mg Take 1.5 tablets by mouth daily. [facility] NORTRIPTYLI NE 50 mg capsule 04-08 00:00: 00 10-28 00:00 :00 No [id number] 150mg TAKE 3 CAPSULES BY MOUTH AT BEDTIME. FOR MIGRAINE PROPHYLAXI S [facility] estradioL 0.1 mg/24 hr twice weekly patch 2020-04 00:00: 00 11-04 00:00 :00 No [id number] 1{patch } Apply 1 Patch to skin 2 (two) times weekly on Thursday and . [facility] hydrOXYzine 50 mg capsule 2020-04 00:00: 00 10-04 00:00 :00 No [id number] 50mg Take 1 capsule by mouth 3 (three) times daily as needed for Anxiety. [facility] ASCOMP WITH CODEINE per capsule 2020-04 00:00: 00 08-26 00:00 :00 No [id number] TAKE 1 CAPSULE BY MOUTH EVERY 4 HOURS NEEDED FOR PAIN. INDICATION S: CHRONIC PAIN, MIGRAINE [facility] ASCOMP WITH CODEINE per capsule 2020-04 00:00: 00 03-19 00:00 :00 No [id number] TAKE 1 CAPSULE BY MOUTH EVERY 4 (FOUR) HOURS NEEDED FOR PAIN. INDICATION S: CHRONIC PAIN, MIGRAINE [facility] hydrOXYzine 50 mg capsule 11-30 00:00: 00 03-28 00:00 :00 No [id number] 50mg Take 1 capsule by mouth 2 (two) times daily as needed for Anxiety. [facility] QUEtiapine 300 mg tablet 11-28 00:00: 00 03-04 00:00 :00 No [id number] 600mg Take 2 tablets by mouth at bedtime. [facility] ARMOUR THYROID 90 mg tablet 11-26 00:00: 00 04-24 00:00 :00 No [id number] TAKE 1 TAB DAILY EVERY OTHER DAY AND 1 & 1/2 TABS DAILY EVERY OTHER DAY. [facility] sennosides 8.6 mg tablet 11-22 00:00: 00 07-08 00:00 :00 No [id number] 8.6mg Take 1 tablet by mouth daily. [facility] ibuprofen 600 mg tablet 11-22 00:00: 00 04-08 00:00 :00 No [id number] 600mg Take 1 tablet by mouth every 6 (six) hours as needed for Pain (scale 4-6). [facility] docusate (COLACE) 100 mg capsule 11-22 00:00: 01-29 00:00 :00 No [id number] 100mg Take 1 capsule by mouth once daily as needed for Constipati on. [facility] fentaNYL 37.5 mcg/hour PT72 11-22 00:00: 00 01-14 00:00 :00 No [id number] 1{patch } Apply 1 Patch to skin every 72 (seventy-t wo) hours for 90 days. Indication s: chronic pain [facility] dicyclomine 20 mg tablet 11-06 00:00: 00 01-29 00:00 :00 No [id number] 20mg Take 1 tablet by mouth 4 (four) times daily. [facility] CYCLOBENZAP RINE 10 mg tablet 10-08 00:00: 00 02-14 00:00 :00 No [id number] 10mg TAKE 1 TABLET BY MOUTH 3 (THREE) TIMES DAILY. FOR MUSCLE SPASMS. [facility] estradioL 0.1 mg/24 hr patch 09-10 00:00: 00 03-26 00:00 :00 No [id number] 1{patch } Apply 1 Patch to skin weekly. [facility] SERTraline 100 mg tablet 09-06 00:00: 00 04-11 00:00 :00 No [id number] 150mg Take 1.5 tablets by mouth daily. [facility] Aspirin 325 MG / butalbital 50 MG / Caffeine 40 MG Oral Capsule [Fiorinal] 08-06 18:05: 00 Yes 1 cap, PO, Q6H, PRN Pain, X 7 day, # 28 cap, 0 Refill(s), Pharmacy: [facility] #[id number], 167.64, cm, 06/14/20 15:35:00 [employer], Height, 100.2, kg, 08/06/20 10:47:00 CDT, Weight [facility] Benadryl 08-06 15:58: 00 No Notes: (Same as: Benadryl) [facility] Saline Flush 0.9% 08-06 15:57: 00 No Notes: (Same as: BD Posiflush) [facility] Sodium Chloride 0.9% (Bolus) IV 08-06 15:57: 00 No 1,000 mL, 1000 ml/hr, Infuse Over: 1 hr, Route: IV, 1,000, Drug form: INJ, ONCE, Priority: STAT, Dosing Weight 100.2 kg, Start date: 08/06/20 10:57:00 CDT, Stop date: 08/06/20 10:57:00 CDT, 0 [facility] Compazine 08-06 15:57: 00 No Notes: (Same as: Compazine) [facility] Ketorolac 08-06 15:57: 00 No 4 days MEDICATION WASTE Product Size: 30 mg Product Wasted: ___ mg [facility] NORTRIPTYLI NE 50 mg capsule 08-04 00:00: 00 01-29 00:00 :00 No [id number] TAKE 2 CAPSULES BY MOUTH EVERY DAY AT BEDTIME [facility] topiramate 50 mg tablet 07-13 00:00: 00 01-14 00:00 :00 No [id number] 50mg Take 1 tablet by mouth 2 (two) times daily. [facility] acetaminoph en-codeine 300-60 mg tablet 06-28 00:00: 00 01-14 00:00 :00 No [id number] 2{tbl} Take 2 tablets by mouth 3 (three) times daily. For chronic knee pain, back pain, and other body pain Indication s: chronic pain [facility] butalbital- aspirin-caf feine-codei ne (BUTALBITAL COMPOUND W/CODEINE) per capsule 06-28 00:00: 00 01-08 00:00 :00 No [id number] 1{capsu le} Take 1 capsule by mouth every 4 (four) hours as needed for Pain. Indication s: chronic pain, migraine [facility] Dilaudid 06-19 13:30: 00 No Notes: Same as Dilaudid [facility] Labetalol 06-19 13:27: 00 No 10 mg, 2 mL, Route: IVP, Drug form: INJ, Q5Min, Dosing Weight 100, kg, PRN Elevated BP, Start date: 06/19/20 8:27:00 CDT, Duration: 5 doses or times, Stop date: Limited # of times, 0 [facility] Oxycodone Hydrochlori de 5 MG Oral Tablet 06-19 13:27: 00 No Notes: (Same as: Roxicodone ) [facility] Flumazenil 06-19 13:27: 00 No Notes: (Same as: Romazicon) [facility] Wallace Naloxone 06-19 13:27: 00 No Notes: Same as Narcan [facility] Albuterol 0.83 MG/ML Inhalant Solution 06-19 13:27: 00 No Notes: SEE RT DOCUMENTAT ION (Same as: Proventil) Memharriet Wallace fentaNYL (ANES) 06-19 13:08: 00 No Route: IV, Drug form: INJ, ONCE, Stop date: 06/19/20 8:08:00 CDT Memharriet Wallace dexamethaso ne (ANES) 06-19 13:08: 00 No Route: IV, Drug form: INJ, ONCE, Stop date: 06/19/20 8:08:00 CDT Memharriet Wallace propofol (ANES) 06-19 13:08: 00 No Route: IV, Drug form: INJ, ONCE, Stop date: 06/19/20 8:08:00 CDT Memharriet Wallace midazolam (ANES) 06-19 13:08: 00 No Route: IV, Drug form: SOLN, ONCE, Stop date: 06/19/20 8:08:00 CDT Memharriet Wallace ceFAZolin (ANES) 06-19 13:03: 00 No Route: IV, Drug form: INJ, ONCE, Stop date: 06/19/20 8:03:00 CDT Memharriet Wallace Lactated Ringers Injection IV (ANES) 1000 mL 06-19 12:23: 00 No Route: IV, Total Volume: 1,000, Start date: 06/19/20 7:23:00 CDT, Stop date: 06/19/20 8:23:00 CDT Memharriet Wallace 72 HR Scopolamine 0.0139 MG/HR Transdermal Patch 06-19 11:40: 00 No 1 patch, Route: TOP, Drug Form: ERFILM, Dosing Weight 100, kg, PRE OP, Start date: 06/19/20 6:40:00 CDT, Duration: 30 day, Stop date: 07/19/20 6:39:00 CDT Memharriet Wallace Lactated Ringers IV 1,000 mL 06-19 11:00: 00 No 1,000 mL, Rate: 40 ml/hr, Infuse over: 25 hr, Route: IV, Dosing Weight 100 kg, Total Volume: 1,000, Start date: 06/19/20 6:00:00 CDT, Duration: 30 day, Stop date: 07/19/20 5:59:00 CDT, 2.19, m2, 0 [facility] Lidocaine Hydrochlori de 10 MG/ML Injectable Solution 06-19 10:00: 00 No Notes: Preservati ve free. (Same as: Xylocaine MPF) [facility] Wallace ropivacaine 0.5% 246.25 mg + EPINEPHrine 0.5 mg + cloNIDine 80 microgram + Sodium Chloride 0.9% IV 06-19 10:00: 00 No 99 ml/hr, Route: intra-MANUEL CULAR, Drug Form: INJ, ONCALL, Start date: 06/19/20 5:00:00 CDT, Stop date: 06/19/20 18:00:00 CDT, 0 David Wallace polymyxin B sulfate + Sodium Chloride 0.9% IV 250 mL 06-19 10:00: 00 No Notes: (Same as: Polymyxin B Sulfate) David Wallace Vancomycin 06-19 10:00: 00 No Notes: FOR OR USE ONLY David Wallace Acetaminoph en 06-18 18:20: 00 No Notes: Max acetaminop hen 4000 mg/day (4 gm/day). (Same as: Tylenol Extra Strength) David Wallace celecoxib 06-18 18:20: 00 No Notes: NSAID. Please check indication . Not for seizure. (Same As: CeleBREX) David Wallace Methocarbam ol 06-18 18:20: 00 No Notes: (Same as:Robaxin ) David Wallace Famotidine 06-18 18:20: 00 No Notes: (Same as: Pepcid) David Wallace Acetaminoph en 300 MG / Codeine Phosphate 60 MG Oral Tablet [Tylenol with Codeine #4] 06-14 21:45: 00 Yes 1 tab, PO, PRN, PRN Pain David Wallace Acetaminoph en 325 MG / Hydrocodone Bitartrate 5 MG Oral Tablet [Stanley 5/325] 05-17 16:03: 00 No 1 tab, Route: PO, Drug Form: TAB, Dosing Weight 99.091, kg, ONCE, Start date: 05/17/20 10:03:00 CEMENTER OIL WELL, Stop date: 05/17/20 10:03:00 CEMENTER OIL WELL, 0 David Wallace Ketorolac Tromethamin e 10 MG Oral Tablet 05-17 15:01: 00 Yes 10 mg = 1 tab, PO, TID, PRN Pain, Can take with other prescribed pain medication when timing allows., X 5 day, # 15 tab, 0 Refill(s), called to pharmacy David Wallace Hydralazine 05-17 14:02: 00 No 10 mg, Route: IVP, Q20Min, Dosing Weight 99.091, kg, PRN Elevated BP, Start date: 05/17/20 8:02:00 CEMENTER OIL WELL, Duration: 2 doses or times, Stop date: Limited # of times David Wallace Labetalol 05-17 14:02: 00 No 10 mg, Route: IVP, Q5Min, Dosing Weight 99.091, kg, PRN Elevated BP, Start date: 05/17/20 8:02:00 CEMENTER OIL WELL, Duration: 5 doses or times, Stop date: Limited # of times David Wallace Fentanyl 05-17 14:02: 00 No 50 microgram, Route: IVP, Q5Min, Dosing Weight 99.091, kg, PRN Pain Score 7-10, Priority: Routine, Start date: 05/17/20 8:02:00 CEMENTER OIL WELL, Duration: 2 doses or times, Stop date: Limited # of times David Wallace Flumazenil 05-17 14:02: 00 No 0.2 mg, Route: IVP, PRN, Dosing Weight 99.091, kg, PRN Benzodiaze pine Reversal, Initial dose, Start date: 05/17/20 8:02:00 CEMENTER OIL WELL, Duration: 30 day, Stop date: 06/16/20 8:01:00 CEMENTER OIL WELL David Wallace Naloxone 05-17 14:02: 00 No 0.4 mg, Route: IVP, Q2MIN, Dosing Weight 99.091, kg, PRN Narcotic Reversal, Start date: 05/17/20 8:02:00 CEMENTER OIL WELL, Duration: 8 doses or times, Stop date: Limited # of times David Wallace Acetaminoph en 300 MG / Codeine Phosphate 30 MG Oral Tablet [Tylenol with Codeine #3] 05-17 13:14: 00 No 1 tab, PO, Q6H, PRN Pain, Max 10 tabs per day, X 5 day, # 24 tab, 0 Refill(s), called to pharmacy David Wallace ceFAZolin + sterile water 20 mL 05-17 06:00: 00 No Notes: (Same As: Raj Davalos) MEDICATION WASTE Product Size: 1000 mg Product Wasted: ___ mg David Wallace Ketorolac Tromethamin e 10 MG Oral Tablet Ketorolac Tromethamin e 10 MG Oral Tablet 05-17 00:00: 00 Yes RIKY BARRIENTOS P.A. Q0.3333D TAKE 1 TABLET 3 TIMES DAILY AFTER MEALS. [facility] Acetaminoph en-Codeine #4 300-60 MG Oral Tablet Acetaminoph en-Codeine #4 300-60 MG Oral Tablet 05-17 00:00: 00 Yes RIKY ABRRIENTOS P.A. TAKE 1 TABLET EVERY 6 TO 8 HOURS NEEDED FOR PAIN. [facility] Estradiol 05-16 21:24: 00 Yes 0 Refill(s) Flavioharriet marie Wallace topiramate 05-16 21:24: 00 Yes PO, 0 Refill(s) Memharriet marie Wallace Zoloft 05-16 21:24: 00 Yes PO, Daily, 0 Refill(s) Memharriet marie Rodrigo Zoloft 05-16 21:24: 00 Yes 150 mg, PO, Daily, 0 Refill(s) David Selfann HYDROcodone -Acetaminop hen 10-325 MG Oral Tablet HYDROcodone -Acetaminop hen 10-325 MG Oral Tablet 1- 00:00: 00 Yes STARLA RAWLS M.D. 1-2 TABLETS BY MOUTH EVERY 6 HOURS NEEDED FOR PAIN [facility] HYDROcodone -Acetaminop hen 10-325 MG Oral Tablet HYDROcodone -Acetaminop hen 10-325 MG Oral Tablet 04-12 00:00: 00 Yes STARLA RAWLS M.D. 1-2 TABLETS BY MOUTH EVERY 6 HOURS NEEDED FOR PAIN [facility] HYDROcodone -Acetaminop hen 10-325 MG Oral Tablet HYDROcodone -Acetaminop hen 10-325 MG Oral Tablet 2019-04 00:00: 00 Yes STARLA RAWLS M.D. 1-2 TABLETS BY MOUTH EVERY 6 HOURS NEEDED FOR PAIN [facility] proMETHazin e 25 mg tablet 2019-04 00:00: 00 04-19 00:00 :00 No [id number] 25mg Take 1 tablet by mouth every 6 (six) hours as needed for Nausea and Vomiting (N/V). [facility] HYDROcodone -Acetaminop hen 10-325 MG Oral Tablet HYDROcodone -Acetaminop hen 10-325 MG Oral Tablet 2019-04 00:00: 00 Yes STARLA RAWLS M.D. 1-2 TABLETS BY MOUTH EVERY 6 HOURS NEEDED FOR PAIN [facility] HYDROcodone -Acetaminop hen 10-325 MG Oral Tablet HYDROcodone -Acetaminop hen 10-325 MG Oral Tablet 2019-04 00:00: 00 Yes STARLA RAWLS M.D. 1-2 TABLETS BY MOUTH EVERY 6 HOURS NEEDED FOR PAIN [facility] SERTraline 100 mg tablet 2019-04 00:00: 00 09-06 00:00 :00 No [id number] 150mg Take 1.5 tablets by mouth daily. [facility] QUEtiapine 300 mg tablet 2019-04 00:00: 00 08-30 00:00 :00 No [id number] 600mg Take 2 tablets by mouth at bedtime. [facility] HYDROcodone -Acetaminop hen 10-325 MG Oral Tablet HYDROcodone -Acetaminop hen 10-325 MG Oral Tablet 2019-04 00:00: 00 Yes STARLA RAWLS M.D. 1-2 TABLETS BY MOUTH EVERY 6 HOURS NEEDED FOR PAIN [facility] topiramate 25 mg CSpX 2019-04 00:00: 00 03-22 00:00 :00 No [id number] 25mg Take 25 mg by mouth 2 (two) times daily as needed for Pain (scale 7-10). [facility] HYDROcodone -Acetaminop hen 10-325 MG Oral Tablet HYDROcodone -Acetaminop hen 10-325 MG Oral Tablet 2019-04 124 00:00: 00 Yes STARLA RAWLS M.D. 1-2 TABLETS BY MOUTH EVERY 6 HOURS NEEDED FOR PAIN [facility] HYDROcodone -Acetaminop hen 10-325 MG Oral Tablet HYDROcodone -Acetaminop hen 10-325 MG Oral Tablet 2019-04 1 00:00: 00 Yes STARLA RAWLS M.D. 1-2 TABLETS BY MOUTH EVERY 6 HOURS NEEDED FOR PAIN [facility] HYDROcodone -Acetaminop hen 10-325 MG Oral Tablet HYDROcodone -Acetaminop hen 10-325 MG Oral Tablet 2019-04 1-06 00:00: 00 Yes STARLA RAWLS M.D. 1-2 TABLETS BY MOUTH EVERY 6 HOURS NEEDED FOR PAIN [facility] methylPREDN ISolone 4 MG Oral Tablet Therapy Pack methylPREDN ISolone 4 MG Oral Tablet Therapy Pack 2019-04 0-29 00:00: 00 Yes STARLA RAWLS M.D. follow insert instructio ns [facility] HYDROcodone -Acetaminop hen 10-325 MG Oral Tablet HYDROcodone -Acetaminop hen 10-325 MG Oral Tablet 2019-04 0-27 00:00: 00 Yes STARLA RAWLS M.D. 1-2 TABLETS BY MOUTH EVERY 6 HOURS NEEDED FOR PAIN [facility] HYDROcodone -Acetaminop hen 10-325 MG Oral Tablet HYDROcodone -Acetaminop hen 10-325 MG Oral Tablet 2019-04 0-16 00:00: 00 Yes STARLA RAWLS M.D. 1-2 TABLETS BY MOUTH EVERY 6 HOURS NEEDED FOR PAIN [facility] HYDROcodone -Acetaminop hen 10-325 MG Oral Tablet HYDROcodone -Acetaminop hen 10-325 MG Oral Tablet 2019-04 0-02 00:00: 00 Yes STARLA RAWLS M.D. 1-2 TABLETS BY MOUTH EVERY 6 HOURS NEEDED FOR PAIN [facility] butalbital- aspirin-caf feine-codei ne (BUTALBITAL COMPOUND W/CODEINE) per capsule 12-24 00:00: 00 06-28 00:00 :00 No [id number] 1{capsu le} Take 1 capsule by mouth every 4 (four) hours as needed for Pain. Indication s: chronic pain, migraine [facility] cyclobenzap rine 10 mg tablet 12-24 00:00: 00 06-05 00:00 :00 No [id number] 10mg Take 1 tablet by mouth 3 (three) times daily. For muscle spasms. [facility] Diclofenac Sodium 1 % gel 12-24 00:00: 03-22 00:00 :00 No [id number] Apply to affected area qid pain. [facility] colesevelam 625 mg tablet 12-24 00:00: 03-22 00:00 :00 No [id number] 1250mg Take 2 tablets by mouth 3 (three) times daily. [facility] HYDROcodone -Acetaminop hen 10-325 MG Oral Tablet HYDROcodone -Acetaminop hen 10-325 MG Oral Tablet 12-19 00:00: 00 Yes STARLA RAWLS M.D. 1-2 TABLETS BY MOUTH EVERY 6 HOURS NEEDED FOR PAIN [facility] estradioL (ESTRADIOL TRANSDERMAL PATCH) 0.1 mg/24 hr patch 12-19 00:00: 08-10 00:00 :00 No [id number] 1{patch } Apply 1 Patch to skin weekly. [facility] Acetaminoph en 325 MG / Hydrocodone Bitartrate 10 MG Oral Tablet [Stanley 10/325] 12-07 18:33: 00 No 1 tab, Route: PO, Drug Form: TAB, Dosing Weight 97, kg, ONCE, PRN Pain Score 1-3, Start date: 12/08/19 13:33:00 CDT David Wallace Phenergan 12-07 16:45: 00 No 12.5 mg, Route: IM, ONCE, Dosing Weight 97, kg, PRN Nausea & Vomiting, Priority: Routine, Start date: 12/08/19 11:45:00 CDT David Wallace Labetalol 12-07 15:53: 00 No 10 mg, 2 mL, Route: IVP, Drug form: INJ, Q5Min, Dosing Weight 97, kg, PRN Elevated BP, Start date: 12/08/19 10:53:00 CDT, Duration: 5 doses or times, Stop date: Limited # of times, 0 Memharriet Wallace Naloxone 12-07 15:53: 00 No Notes: Same as Narcan Memharriet Wallace Meperidine 12-07 15:53: 00 No Notes: (Same as: Demerol) "Use Precaution in Elderly, Seizure disorders, and Renal impairment " David Wallace hydromorpho ne (ANES) 12-07 15:52: 00 No Route: IV, Drug form: INJ, ONCE, Stop date: 12/08/19 10:52:00 CDT Memharriet Wallace acetaminoph en (ANES) 12-07 15:48: 00 No Route: IV, Drug form: INJ, ONCE, Stop date: 12/08/19 10:48:00 CDT Memharriet Wallace ketOROLAC (ANES) 12-07 15:38: 00 No IV, ONCE David Wallace dexamethaso ne (ANES) 12-07 14:57: 00 No Route: IV, Drug form: INJ, ONCE, Stop date: 12/08/19 9:57:00 CDT Memharriet Wallace famotidine (ANES) 12-07 14:57: 00 No Route: IV, Drug form: INJ, ONCE, Stop date: 12/08/19 9:57:00 CDT Memharriet Wallace metoclopram geoffrey (ANES) 12-07 14:57: 00 No Route: IV, Drug form: INJ, ONCE, Stop date: 12/08/19 9:57:00 CDT Memharriet Wallace fentaNYL (ANES) 12-07 14:47: 00 No Route: IV, Drug form: INJ, ONCE, Stop date: 12/08/19 9:47:00 CDT Memoria marie Wallace midazolam (ANES) 12-07 14:47: 00 No Route: IV, Drug form: SOLN, ONCE, Stop date: 12/08/19 9:47:00 CDT David Wallace lidocaine (ANES) 12-07 14:47: 00 No Route: IV, Drug form: INJ, ONCE, Stop date: 12/08/19 9:47:00 CDT David Wallace propofol (ANES) 12-07 14:47: 00 No Route: IV, Drug form: INJ, ONCE, Stop date: 12/08/19 9:47:00 CDT David Wallace ceFAZolin (ANES) 12-07 14:47: 00 No Route: IV, Drug form: INJ, ONCE, Stop date: 12/08/19 9:47:00 CDT David Wallace Nortriptyli ne 12-07 14:00: 00 No Notes: (Same as:Chema Aventyl) David Wallace Seroquel 12-07 14:00: 00 No Route: PO, Drug form: TAB, Daily, Dosing Weight 97, kg, Start date: 12/08/19 9:00:00 CDT, Duration: 30 day, Stop date: 01/06/20 9:00:00 CDT David Wallace EpiPen Auto-Inject or 12-07 13:56: 00 Yes 0.3 mg, Route: IM, Drug form: INJ, ONCE, Dosing Weight 97, kg, Start date: 12/08/19 8:56:00 CDT, Stop date: 12/08/19 8:56:00 CDT David Wallace Hydroxyzine Hydrochlori de 50 MG Oral Tablet 12-07 13:56: 00 No Notes: (Same as: Atarax) Avoid alcohol. David Wallace Lactated Ringers Injection IV (ANES) 1000 mL 12-07 13:49: 00 No Route: IV, Total Volume: 1,000, Start date: 12/08/19 8:49:00 CDT, Stop date: 12/08/19 9:49:00 CDT David Wallace bupivacaine -epinephrin e 0.5%-1:200, 000 12-07 13:03: 00 Yes Notes: (bupivacai ne-epi 0.5%-1:200 ,000 30 ml VL) Not for use in continuous infusion. (Same As: Marcbradley w/Epi) Flavioharriet marie Wallace HYDROcodone -Acetaminop hen 10-325 MG Oral Tablet HYDROcodone -Acetaminop hen 10-325 MG Oral Tablet 9-03 00:00: 00 Yes STARLA RAWLS M.D. 1-2 TABLETS BY MOUTH EVERY 6 HOURS NEEDED FOR PAIN [facility] nortriptyli ne 75 mg oral capsule 12-04 20:42: 00 Yes 150 mg = 2 cap, PO, Daily, # 30 cap, 0 Refill(s) Memoria marie Wallace [place] Thyroid 12-04 20:41: 00 Yes PO, Daily, 0 Refill(s) Memharriet marie Wallace Clonazepam 12-04 20:41: 00 Yes PO, PRN, 0 Refill(s) Flavioharriet marie Wallace quetiapine 300 MG Oral Tablet [Seroquel] 12-04 20:39: 00 Yes 2 tabs, PO, Daily, # 30 tab, 0 Refill(s) Memharriet Wallace SEROquel 300 mg oral tablet 12-04 20:39: 00 Yes 2 tabs, PO, QPM, # 30 tab, 0 Refill(s) David marie Wallace HYDROcodone -Acetaminop hen 10-325 MG Oral Tablet HYDROcodone -Acetaminop hen 10-325 MG Oral Tablet 814 00:00: 00 Yes STARLA RAWLS M.D. 1-2 TABLETS BY MOUTH EVERY 6 HOURS NEEDED FOR PAIN [facility] predniSONE 20 mg tablet 18 00:00: 00 03-22 00:00 :00 No [id number] 2 tabs now and 2 tabs early each morning for total of 5 doses. [facility] tiZANidine HCl - 4 MG Oral Tablet tiZANidine HCl - 4 MG Oral Tablet 5-19 00:00: 00 Yes STARLA RAWLS M.D. TAKE 1 TABLET BY MOUTH EVERY DAY AT BEDTIME NEEDED FOR SPASM [facility] nortriptyli ne 50 mg capsule 2020-0 4-27 00:00: 00 08-04 20:07 :01 No [id number] 150mg Take 3 capsules by mouth at bedtime. [facility] Thyroid, Pork, 90 mg tablet 16 00:00: 00 07-25 00:00 :00 No [id number] Take 1 tab daily every other day and 1.5 tabs daily every other day. [facility] proMETHazin e 25 mg tablet 13 00:00: 03-22 00:00 :00 No [id number] 25mg Take 1 tablet by mouth every 6 (six) hours as needed for Nausea and Vomiting (N/V). [facility] traMADol HCl - 50 MG Oral Tablet traMADol HCl - 50 MG Oral Tablet 04-08 00:00: 00 Yes STARLA RAWLS M.D. TAKE 1 TO 2 TABLETS EVERY 6 HOURS NEEDED FOR PAIN. [facility] Meloxicam 15 MG Oral Tablet Meloxicam 15 MG Oral Tablet 04-08 00:00: 00 Yes STARLA RAWLS M.D. QD TAKE 1 TABLET DAILY WITH FOOD. [facility] NORTRIPTYLI NE 50 mg capsule 10-26 00:00: 00 09-27 00:00 :00 No TAKE 1 CAPSULE BY MOUTH EVERY NIGHT AT BEDTIME [facility] PROMETHAZIN E 25 mg tablet 10-26 00:00: 00 04-14 00:08 :25 No [id number] 25mg TAKE 1 TABLET BY MOUTH EVERY 4 (FOUR) HOURS NEEDED FOR NAUSEA AND VOMITING (N/V). [facility] QUEtiapine 300 mg tablet 10-15 00:00: 00 01-14 00:00 :00 No 300mg Take 1 tablet by mouth at bedtime. [facility] DULoxetine 60 mg capsule 10-15 00:00: 00 01-14 00:00 :00 No 60mg Take 1 capsule by mouth daily. [facility] hydrOXYzine 10 mg tablet 10-15 00:00: 00 01-14 00:00 :00 No 10mg Take 1 tablet by mouth 2 (two) times daily as needed for Anxiety. [facility] DULoxetine 30 mg capsule 12 00:00: 01-05 00:00 :00 No 30mg Take 1 capsule by mouth daily. [facility] HYDROcodone -acetaminop hen 5-325 mg tablet 09-29 00:00: 00 10-26 00:00 :00 No 1{tbl} Take 1 tablet by mouth every 6 (six) hours as needed for Pain (scale 4-6) or Pain (scale 7-10). [facility] LEVOTHYROXI NE 125 mcg tablet 09-22 00:00: 00 07-13 00:00 :00 No 125ug TAKE 1 TABLET BY MOUTH EVERY MORNING. [facility] ESTRADIOL 2 mg tablet 09-22 00:00: 00 10-26 00:00 :00 No TAKE 1 TABLET BY MOUTH EVERY DAY [facility] nortriptyli ne 10 mg capsule 09-21 00:00: 00 01-23 00:00 :00 No [id number] 10mg Take 1 capsule by mouth at bedtime. Take with 50mg capsule. [facility] acetaminoph en-codeine (TYLENOL-CO DEINE #4) 300-60 mg tablet 09-01 00:00: 00 09-29 00:00 :00 No [id number] 1{tbl} Take 1 tablet by mouth every 4 (four) hours as needed (severe right hip pain (allergic to nsaids). no more than 6 pills in 24 hours.). [facility] traMADOL 50 mg tablet 08-27 00:00: 00 10-26 00:00 :00 No TAKE 2 TABELTS BY MOUTH EVERY 8 HOURS NEEDED FOR SEVERE PAIN [facility] BACLOFEN 10 mg tablet 08-26 00:00: 00 11-03 00:00 :00 No [id number] TAKE 1 TABLET BY MOUTH 3 (THREE) TIMES DAILY. [facility] nortriptyli ne 50 mg capsule 4-15 00:00: 00 10-24 00:00 :00 No TAKE 1 CAPSULE BY MOUTH EVERY NIGHT AT BEDTIME [facility] busPIRone 30 mg tablet 06-26 00:00: 00 10-26 00:00 :00 No [id number] 30mg Take 1 tablet by mouth 2 (two) times daily. [facility] DULoxetine 60 mg capsule 06-26 00:00: 00 10-15 00:00 :00 No [id number] 60mg Take 1 capsule by mouth daily. [facility] QUEtiapine 300 mg 24 hr tablet 06-26 00:00: 00 10-02 00:00 :00 No 300mg Take 1 tablet by mouth at bedtime. [facility] estradiol 2 mg tablet 06-23 00:00: 00 12-23 00:00 :00 No [id number] 2mg Take 1 tablet by mouth daily. [facility] proMETHazin e 25 mg tablet 06-23 00:00: 00 10-24 00:00 :00 No [id number] 25mg Take 1 tablet by mouth every 4 (four) hours as needed for Nausea and Vomiting (N/V). [facility] levothyroxi ne 125 mcg tablet 2 00:00: 00 09-19 00:00 :00 No 125ug Take 1 tablet by mouth every morning. [facility] Diclofenac Sodium (VOLTAREN) 1 % gel 05-04 00:00: 00 01-05 00:00 :00 No [id number] Take 2-4 grams twice a day as needed for pain [facility] meclizine 25 mg tablet 2016-04 00:00: 00 05-10 00:00 :00 No [id number] 25mg Take 1 tablet by mouth 3 (three) times daily as needed for Dizziness. [facility] EPINEPHrine 0.3 mg/0.3 mL injection 11-26 00:00: 00 04-05 00:00 :00 No [facility] Ativan 04-15 18:03: 00 No Notes: (Same as: Ativan) David Wallace 0.3 ML Epinephrine 1 MG/ML Prefilled Syringe [Epipen] 11-02 03:50: 00 Yes 0.3 mg, IM, ONCE, # 1 kit, 0 Refill(s) David Selfann predniSONE 50 mg oral tablet 11-02 03:49: 00 Yes 50 mg = 1 tab, PO, Daily, X 5 day, # 5 tab, 0 Refill(s) David alcazar Rdorigo Acetaminoph en 325 MG / Hydrocodone Bitartrate 5 MG Oral Tablet [Stanley 5/325] 11-02 02:50: 00 No Notes: (Same as: Stanley 325/5) Do not exceed 4gm/day of acetaminop hen. Flavioharriet alcazar Rodrigo Potassium Chloride 1.33 MEQ/ML Oral Solution 11-02 01:44: 00 No Notes: (Same as: Potassium Chloride) Flavioharriet marie Wallace Saline Flush 0.9% 11-02 01:02: 00 No Notes: preservati ve free. Flavioharriet marie Wallace Metoclopram geoffrey 11-01 23:54: 00 No 10 mg, Route: IVP, Drug form: INJ, ONCE, Dosing Weight 83.636, kg, Priority: STAT, Start date: 11/02/15 18:54:00 CDT, Stop date: 11/02/15 18:54:00 CDT Flavioharriet marie Wallace Albuterol 0.833 MG/ML / Ipratropium [place] 0.167 MG/ML Inhalant Solution [DuoNeb] 11-01 21:49: 00 No Notes: (Same as: Duoneb) Flavioharriet alcazar Rodrigo Benadryl 11-01 21:45: 00 No 25 mg, Route: IVP, ONCE, Dosing Weight 78.636, kg, Priority: STAT, Start date: 11/02/15 16:45:00 CDT, Stop date: 11/02/15 16:45:00 CDT Flavioharriet marie Wallace Pepcid 11-01 21:45: 00 No 20 mg, Route: IV, ONCE, Dosing Weight 78.636, kg, Start date: 11/02/15 16:45:00 CDT, Stop date: 11/02/15 16:45:00 CDT David Wallace Sodium Chloride 0.154 MEQ/ML Injectable Solution 11-01 21:44: 00 No 1,000 mL, 1,000 ml/hr, Infuse Over: 1 hr, Route: IV, ONCE, Priority: STAT, Dosing Weight 78.636 kg, Start date: 11/02/15 16:44:00 CDT, Duration: 1 doses or times, Stop date: 11/02/15 16:44:00 CDT David Wallace Dexamethaso ne 11-01 21:44: 00 No 10 mg, Route: IVP, ONCE, Dosing Weight 78.636, kg, Priority: STAT, Start date: 11/02/15 16:44:00 CDT, Stop date: 11/02/15 16:44:00 CDT David marie Rodrigo Celecoxib 200 MG Oral Capsule Celecoxib 200 MG Oral Capsule 09-24 00:00: 00 Yes STARLA RAWLS M.D. QD TAKE 2 CAPSULES DAILY. [facility] Pennsaid 2 % SOLN Pennsaid 2 % SOLN 09-24 00:00: 00 Yes STARLA RAWLS M.D. Apply sparingly to affected area twice daily. [facility] Seroquel 08-08 14:00: 00 No Notes: (Same as: SEROquel) David Selfann Thyroxine 08-08 14:00: 00 No Notes: Take 1 hour before or 2 hours after meal; Enteral feeds may interefere with the absorption of this medication . (Same as:Synthro id, Levothroid ) David Wallace Estradiol 08-08 14:00: 00 No 2 mg, 2 tab, Route: PO, Drug form: TAB, Daily, Dosing Weight 78.636, kg, Start date: 08/09/15 9:00:00 CDT, Duration: 30 day, Stop date: 09/07/15 9:00:00 CDT David Wallace lamotrigine 100 MG Oral Tablet 08-07 22:00: 00 No Notes: (Same as:LaMICta l) Flavioharriet alcazar Rodrigo Cymbalta 08-07 22:00: 00 No Notes: (Same as: Cymbalta) (Do Not Crush) David Selfann Promethazin e Hydrochlori de 25 MG Oral Tablet [Phenergan] 08-07 16:26: 00 Yes 25 mg = 1 tab, PO, Q6H, PRN Nausea, X 4 day, # 60 tab, 0 Refill(s), given to patient David Selfann hydromorpho ne ([facility]) 08-07 16:11: 00 No Route: IV, Drug form: INJ, ONCE, Stop date: 08/08/15 11:11:00 CDT Memharriet marie Rodrigo glycopyrrol ate ([facility]) 08-07 16:11: 00 No Route: IV, Drug form: INJ, ONCE, Stop date: 08/08/15 11:11:00 CDT Memharriet marie Wallace neostigmine ([facility]) 08-07 16:11: 00 No Route: IV, Drug form: INJ, ONCE, Stop date: 08/08/15 11:11:00 CDT David Wallace fentaNYL ([facility]) 08-07 16:01: 00 No Route: IV, Drug form: INJ, ONCE, Stop date: 08/08/15 11:01:00 CDT David Wallace ceFAZolin ([facility]) 08-07 15:46: 00 No Route: IV, Drug form: INJ, ONCE, Stop date: 08/08/15 10:46:00 CDT Flavioharriet marie Wallace dexamethaso ne ([facility]) 08-07 15:41: 00 No Route: IV, Drug form: INJ, ONCE, Stop date: 08/08/15 10:41:00 CDT Memharriet marie Wallace promethazin e ([facility]) 08-07 15:41: 00 No Route: IV, Drug form: INJ, ONCE, Stop date: 08/08/15 10:41:00 CDT Memharriet Wallace propofol ([facility]) 08-07 15:36: 00 No Route: IV, Drug form: INJ, ONCE, Stop date: 08/08/15 10:36:00 CDT Memharriet Wallace rocuronium ([facility]) 08-07 15:36: 00 No Route: IV, Drug form: INJ, ONCE, Stop date: 08/08/15 10:36:00 CDT David Wallace lidocaine (ANES) 08-07 15:36: 00 No Route: IV, Drug form: INJ, ONCE, Stop date: 08/08/15 10:36:00 CDT Memharriet Wallace acetaminoph en (ANES) 08-07 15:36: 00 No Route: IV, Drug form: INJ, ONCE, Stop date: 08/08/15 10:36:00 CDT David Wallace midazolam (ANES) 08-07 15:31: 00 No Route: IV, Drug form: SOLN, ONCE, Stop date: 08/08/15 10:31:00 CDT David Wallace Lactated Ringers Injection IV (ANES) (ANES) 08-07 14:35: 00 No Route: IV, Total Volume: 1,000, Start date: 08/08/15 9:35:00 CDT, Stop date: 08/08/15 10:35:00 CDT David Wallace Acetaminoph en 325 MG / Hydrocodone Bitartrate 7.5 MG Oral Tablet 08-07 14:34: 00 No Notes: Same as Stanley 325-7.5mg Do not exceed 4gm/day of acetaminop hen. David Wallace Hydroxyzine Hydrochlori de 50 MG Oral Tablet 08-07 14:34: 00 No Notes: (Same as: Atarax) Avoid alcohol. David Wallace Calcium Chloride 0.0014 MEQ/ML / Potassium Chloride 0.004 MEQ/ML / Sodium Chloride 0.103 MEQ/ML / Sodium Lactate 0.028 MEQ/ML Injectable Solution 08-07 12:18: 00 No 1,000 mL, Rate: 25 ml/hr, Infuse over: 40 hr, Route: IV, Dosing Weight 78.636 kg, Total Volume: 1,000, Start date: 08/08/15 7:18:00 CDT, Duration: 6 hr, Stop date: 08/08/15 13:17:00 CDT David Wallace 0.3 ML Epinephrine 1 MG/ML Prefilled Syringe [Epipen] 07-18 15:29: 00 Yes 0.3 mg, IM, ONCE, # 1 kit, 1 Refill(s) David Wallace diphenhydrA MINE 25 mg oral tablet 07-18 14:54: 00 Yes 25 mg = 1 tab, PO, BID, X 7 day, # 14 tab, 0 Refill(s) David Wallace pantoprazol e 40 mg oral enteric coated tablet 07-18 13:25: 00 Yes 40 mg = 1 tab, PO, Daily, # 30 tab, 0 Refill(s) David Wallace predniSONE 20 mg oral tablet 07-18 13:25: 00 Yes 40 mg = 2 tab, PO, Daily, X 7 day, # 14 tab, 0 Refill(s) David Wallace Phenergan 07-18 00:17: 00 No 25 mg, 50 mL, Route: IVPB, Drug form: SOLN, Q6H, Dosing Weight 77.6, kg, PRN Nausea & Vomiting, Priority: STAT, Start date: 07/18/15 19:17:00 CDT, Duration: 30 day, Stop date: 08/17/15 19:16:00 CDT David Wallace GI cocktail 07-18 00:16: 00 No Notes: G.I. Cocktail = antacid with simethicon e 22.5 mL - lidocaine viscous 7.5 mL Flavioharriet marie Wallace Lovenox 07-17 22:00: 00 No Notes: (Same as: Lovenox) David alcazar Bodega ferrous sulfate 07-17 21:53: 00 No Notes: Give with food. iron elemental [id number] as ferrous sulfate Dose=___mg elemental iron Flavioharriet marie Bodega Azithromyci n 07-17 21:44: 00 No Notes: (Same As: Zithromax IV) David Wallace Prednisone 07-17 20:51: 00 No Notes: Take with food. Dvaid Wallace Ativan 07-17 14:56: 00 No Notes: (Same as: Ativan) David Wallace Thyroxine 07-17 11:30: 00 No Notes: Take 1 hour before or 2 hours after meal; Enteral feeds may interefere with the absorption of this medication . (Same as:Synthro id, Levothroid ) David Wallace Seroquel 07-17 02:00: 00 No Notes: (Same as: SEROquel) David Wallace pantoprazol e 07-16 21:30: 00 No Notes: Tablet should not be chewed or crushed. (Same as: Protonix) David Wallace Solu-Medrol 07-16 17:00: 00 No Notes: (Same as:Solu-ME DROL, A-Methapre d) David Wallace Robitussin- AC oral syrup 07-16 16:59: 00 No Notes: (Same As: Robitussin AC) David Wallace lamotrigine 100 MG Oral Tablet 07-16 15:00: 00 No Notes: (Same as:LaMICta l) David Wallace Cymbalta 07-16 15:00: 00 No Notes: (Same as: Cymbalta) (Do Not Crush) David Wallace Hydroxyzine Hydrochlori de 50 MG Oral Capsule 07-16 12:59: 00 No 50 mg = 1 cap, PO, QID, PRN Anxiety, # 40 cap, 0 Refill(s) David Wallace Insulin, Aspart, Human 07-16 12:27: 00 No Notes: Roll in palms of hands gently; Do not shake vigorously . (Same as: NovoLOG) "single patient use only" WASTE: F/P - Black; E - Cliq Trash Bin Stable for 28 days at room temperatur e. Expires in days from ____Date David Wallace Glucagon 07-16 12:27: 00 No 1 mg, Route: IM, Drug form: PDR/INJ, PRN, Dosing Weight 77.6, kg, PRN Blood Glucose Results, Start date: 07/17/15 7:27:00 CDT, Duration: 30 day, Stop date: 08/16/15 7:26:00 CDT David Wallace Dextrose 50% Syringe 07-16 12:27: 00 No 25 gm, 50 mL, Route: IVP, Drug Form: INJ, Dosing Weight 77.6, kg, PRN, PRN Blood Glucose Results, Start date: 07/17/15 7:27:00 CDT, Duration: 30 day, Stop date: 08/16/15 7:26:00 CDT David alcazar Rodrigo Acetaminoph en 325 MG / Hydrocodone Bitartrate 5 MG Oral Tablet [Stanley 5/325] 07-16 02:26: 00 No Notes: (Same as: Stanley 325/5) Do not exceed 4gm/day of acetaminop hen. David Selfann Calcium Carbonate 500 MG Chewable Tablet 07-16 02:26: 00 No Notes: (Same As: Tums) Calcium Carbonate 500 mg = 200 mg elemental calcium Dose = mg calcium carbonate ( mg elemental calcium) David alcazar Rodrigo Calcium Gluconate 07-16 02:26: 00 No Notes: WASTE: F/P - Sink; E - Municipal Trash Bin Flavioharriet alcazar Rodrigo potassium chloride 07-16 02:26: 00 No Notes: (Same as: KCL) Infuse no faster than 10 mEq/hr if given peripheral ly. David alcazar Rodrigo sodium phosphate + Sodium Chloride 0.9% IV 250 mL 07-16 02:26: 00 No 15 mmol, 5 mL, Route: IVPB, PRN, Dosing Weight 75, kg, PRN Abnormal Lab Result, Start date: 07/16/15 21:26:00 CDT, Duration: 30 day, Stop date: 08/15/15 21:25:00 CDT, FOR ICU USE ONLY David marie Wallace potassium phosphate + Sodium Chloride 0.9% IV 250 mL 07-16 02:26: 00 No Notes: (Same as: K Phosphate. ) 1 mMol phoshate has 1.47 mEq potassium Infuse over 4 hours Flavioharriet marie Wallace Magnesium Sulfate 07-16 02:26: 00 No Notes: WASTE: F/P - Sink; E - Municipal Trash Bin David Wallace Neutra-Phos 07-16 02:26: 00 No Notes: (Same as: Neutra-Blessing s) Each 1.25 gm pkt has 250mg phosphorou s. Mix w/2.5oz water and stir. David Wallace Magnesium Oxide 07-16 02:26: 00 No Notes: (Same as: Mag-Ox 400) Magnesium oxide 239xi=258n g elemental magnesium Dose=____m g magnesium oxide (___mg elemental magnesium) David Wallace Morphine 07-16 02:26: 00 No Notes: (Same as:MORPhin e Sulfate) David Wallace Lactulose 07-16 02:26: 00 No Notes: (Same as:Chronul ac) David Wallace Docusate 07-16 02:26: 00 No Notes: (Same as: Colace) (Do Not Crush) David Wallace Bisacodyl 07-16 02:26: 00 No Notes: (Same As: Dulcolax, Bisco-Lax) David Wallace Ondansetron 07-16 02:26: 00 No 4 mg, Route: IVP, Q8H, Dosing Weight 75, kg, PRN Nausea & Vomiting, Start date: 07/16/15 21:26:00 CDT, Duration: 30 day, Stop date: 08/15/15 21:25:00 CDT David Wallace Acetaminoph en 07-16 02:26: 00 No Notes: Do not exceed 4 gm/day. (Same as: Tylenol) Dvaid Wallace Ipratropium 07-16 02:23: 00 No Notes: SEE RT DOCUMENTAT ION (Same as:Atroven t) David Wallace Benadryl 07-16 00:28: 00 No 25 mg, Route: IVP, ONCE, Dosing Weight 75, kg, Priority: STAT, Start date: 07/16/15 19:28:00 CDT, Stop date: 07/16/15 19:28:00 CDT David Wallace Pepcid 07-15 22:56: 00 No Notes: (Same as: Pepcid) Can be dilute in 5-10cc NS IVP: Slow IV push over at least 2 minutes. Flavioharriet marie Wallace Albuterol 0.833 MG/ML / Ipratropium [place] 0.167 MG/ML Inhalant Solution 07-15 22:54: 00 No 3 mL, Route: NEB, Drug Form: SOLN, Dosing Weight 75, kg, ONCE, STAT, Start date: 07/16/15 17:54:00 CDT, Stop date: 07/16/15 17:54:00 CDT Flavioharriet marie Wallace Saline Flush 0.9% 07-15 22:54: 00 No Notes: (Same as: BD Posiflush) David alcazar Rodrigo Racepinephr ine 07-15 22:54: 00 No 0.5 mL, Route: NEB, Dosing Weight 75, kg, ONCE, STAT, Start date: 07/16/15 17:54:00 CDT, Stop date: 07/16/15 17:54:00 CDT Flavioharriet marie Wallace EPINEPHrine 1 mg/mL (1:1000) injectable solution 07-15 22:54: 00 No 0.5 mg, Route: IM, ONCE, Dosing Weight 75, kg, Priority: STAT, Start date: 07/16/15 17:54:00 CDT, Stop date: 07/16/15 17:54:00 CDT Flavioharriet marie Wallace Acetaminoph en 300 MG / Codeine Phosphate 30 MG Oral Tablet [Tylenol with Codeine #3] 06-24 22:39: 00 Yes 1 - 2 tab, PO, Q4H, PRN Pain, X 4 day, # 36 tab, 0 Refill(s) Flavioharriet marie Wallace Acetaminoph en 325 MG / Hydrocodone Bitartrate 5 MG Oral Tablet [Stanley 5/325] 06-24 20:58: 00 No 2 tab, Route: PO, Drug Form: TAB, Dosing Weight 76.364, kg, ONCE, STAT, Start date: 06/25/15 15:58:00, Stop date: 06/25/15 15:58:00 Flavioharriet marie Wallace Flexeril 06-24 20:54: 00 No 10 mg, Route: PO, ONCE, Dosing Weight 76.364, kg, Priority: STAT, Start date: 06/25/15 15:54:00, Stop date: 06/25/15 15:54:00 Memharriet Wallace Tylenol 06-24 20:24: 00 No 650 mg, Route: PO, Drug form: TAB, ONCE, Dosing Weight 76.364, kg, Priority: STAT, Start date: 06/25/15 15:24:00, Stop date: 06/25/15 15:24:00 David Wallace Flumazenil 06-07 17:16: 00 No Notes: (Same as: Romazicon) Memoria marie Wallace Naloxone 06-07 17:16: 00 No Notes: Same as Narcan Memharriet marie Wallace Meperidine 06-07 17:16: 00 No Notes: (Same as: Demerol) "Use Precaution in Elderly, Seizure disorders, and Renal impairment " David Wallace Morphine 06-07 17:16: 00 No Notes: (Same as:MORPhin e Sulfate) Flavioharriet Wallace Oxycodone 06-07 17:16: 00 No Notes: (Same as: Roxicodone ) Memharriet Wallace Metoprolol 06-07 17:16: 00 No Notes: (Same as: Lopressor) Push over 2 minutes David Wallace Hydralazine 06-07 17:16: 00 No Notes: (Same as: Apresoline ) Push over 5 minutes David Wallace Acetaminoph en 325 MG / Hydrocodone Bitartrate 10 MG Oral Tablet [Stanley 10/325] 06-07 16:52: 00 Yes 1-2 tab, PO, Q6H, PRN Pain, X 5 day, # 30 tab, 0 Refill(s) David Wallace promethazin e (ANES) 06-07 16:14: 00 No Route: IV, Drug form: INJ, ONCE, Stop date: 06/08/15 10:14:00 Flavioharriet Wallace hydromorpho ne (ANES) 06-07 15:57: 00 No Route: IV, Drug form: INJ, ONCE, Stop date: 06/08/15 9:57:00 Memharriet alcazar Bodega ondansetron (ANES) 06-07 15:32: 00 No Route: IV, Drug form: INJ, ONCE, Stop date: 06/08/15 9:32:00 Memoria marie Wallace dexamethaso ne ([facility]) 06-07 15:32: 00 No Route: IV, Drug form: INJ, ONCE, Stop date: 06/08/15 9:32:00 Memoria marie Wallace ceFAZolin ([facility]) 06-07 15:32: 00 No Route: IV, Drug form: INJ, ONCE, Stop date: 06/08/15 9:32:00 Memoria marie Wallace famotidine ([facility]) 06-07 15:32: 00 No Route: IV, Drug form: INJ, ONCE, Stop date: 06/08/15 9:32:00 Memharriet Wallace propofol ([facility]) 06-07 15:27: 00 No Route: IV, Drug form: INJ, ONCE, Stop date: 06/08/15 9:27:00 Memoria marie Wallace fentaNYL ([facility]) 06-07 15:22: 00 No Route: IV, Drug form: INJ, ONCE, Stop date: 06/08/15 9:22:00 Memoria marie Wallace lidocaine ([facility]) 06-07 15:17: 00 No Route: IV, Drug form: INJ, ONCE, Stop date: 06/08/15 9:17:00 Memoria marie Wallace midazolam ([facility]) 06-07 15:17: 00 No Route: IV, Drug form: SOLN, ONCE, Stop date: 06/08/15 9:17:00 Memoria marie Wallace vancomycin (ANES) ([facility]) 06-07 14:47: 00 No Route: IV, Drug form: INJ, Start date: 06/08/15 8:47:00, Stop date: 06/08/15 9:47:00 Memharriet Wallace Lactated Ringers Injection IV (ANES) ([facility]) 06-07 14:39: 00 No Route: IV, Total Volume: 1,000, Start date: 06/08/15 8:39:00, Stop date: 06/08/15 9:39:00 David Wallace Calcium Chloride 0.0014 MEQ/ML / Potassium Chloride 0.004 MEQ/ML / Sodium Chloride 0.103 MEQ/ML / Sodium Lactate 0.028 MEQ/ML Injectable Solution 06-07 14:20: 00 No 1,000 mL, Rate: 25 ml/hr, Infuse over: 40 hr, Route: IV, Dosing Weight 75 kg, Total Volume: 1,000, Start date: 06/08/15 8:20:00, Duration: 30 day, Stop date: 07/08/15 8:19:00 David Wallace Acetaminoph en 500 MG Oral Tablet [Tylenol] 06-06 16:15: 00 Yes 1,000 mg = 2 tab, PO, Q4H, PRN Pain, # 120 tab, 0 Refill(s) David Wallace Alprazolam 1 MG Oral Tablet [Xanax] 06-06 16:15: 00 Yes 1 mg = 1 tab, PO, TID, PRN Anxiety, 0 Refill(s) David Wallace Ibuprofen 200 MG Oral Tablet [Advil] 06-06 16:15: 00 Yes 400 mg = 2 tab, PO, Q4H, PRN Pain, # 120 tab, 0 Refill(s) David Wallace lamotrigine 100 MG Oral Tablet 06-06 16:14: 00 Yes 100 mg = 1 tab, PO, BID, # 60 tab, 0 Refill(s) David Wallace estradiol 2 mg oral tablet 06-06 16:14: 00 Yes 2 mg = 1 tab, PO, Daily, # 30 tab, 0 Refill(s) David Wallace Tylenol 14:41: 00 No 975 mg, Route: PO, Drug form: TAB, ONCE, Dosing Weight 74.091, kg, Priority: STAT, Start date: 06/04/15 8:41:00, Stop date: 06/04/15 8:41:00 David Wallace tramadol hydrochlori de 50 MG Oral Tablet [Ultram] 13:53: 00 No 50 mg, Route: PO, Drug form: TAB, ONCE, Dosing Weight 74.091, kg, Priority: STAT, Start date: 06/04/15 7:53:00, Stop date: 06/04/15 7:53:00 Memoria marie Bodega Acetaminoph en 300 MG / Codeine Phosphate 60 MG Oral Tablet [Tylenol with Codeine #4] 05-25 05:15: 00 Yes 1 - 2 tab, PO, Q6H, PRN Pain, X 4 day, # 32 tab, 0 Refill(s) Memharriet marie Bodega Hydromorpho ne 05-25 03:25: 00 No 1 mg, Route: IM, ONCE, Dosing Weight 74.091, kg, Priority: STAT, Start date: 05/24/15 21:25:00, Stop date: 05/24/15 21:25:00 David Wallace Saline Flush 0.9% 05-25 01:57: 00 No Notes: (Same as: BD Posiflush) Memharriet marie Wallace Acetaminoph en 300 MG / Codeine Phosphate 30 MG Oral Tablet [Tylenol with Codeine #3] 05-08 06:12: 00 Yes 1 - 2 tab, PO, Q6H, PRN Pain, X 4 day, # 32 tab, 0 Refill(s) Flavioharriet marie aWllace Dilaudid 05-08 04:42: 00 No Notes: Same as: Dilaudid David Wallace Promethazin e 05-08 04:42: 00 No Notes: (Same as: Phenergan) David Wallace tramadol hydrochlori de 50 MG Oral Tablet 04-14 23:00: 00 Yes 50 mg = 1 tab, PO, Q4H, PRN Pain, X 3 day, # 18 tab, 0 Refill(s) Memharriet marie Wallace Phenergan 04-14 21:20: 00 No Notes: (Same as: Phenergan) Memharriet marie Wallace Acetaminoph en 325 MG / Hydrocodone Bitartrate 10 MG Oral Tablet [Stanley 10/325] 04-14 21:20: 00 No 1 tab, Route: PO, Drug Form: TAB, Dosing Weight 75.318, kg, ONCE, STAT, Start date: 04/14/15 15:20:00, Stop date: 04/14/15 15:20:00 David Wallace Metoclopram geoffrey 04-13 18:50: 00 No Notes: (Same as: Reglan) Take 30 min before meals David Wallace Morphine 04-13 18:49: 00 No Notes: (Same as:MORPhin e Sulfate) David Selfann acetaminoph en-codeine #3 04-13 18:15: 00 No 1 tab, Route: PO, Dosing Weight 74.545, kg, ONCE, STAT, Start date: 04/13/15 12:15:00, Stop date: 04/13/15 12:15:00 David Selfann Acetaminoph en 325 MG / Hydrocodone Bitartrate 5 MG Oral Tablet [Stanley 5/325] 04-13 17:45: 00 No 1 tab, Route: PO, Drug Form: TAB, Dosing Weight 72.727, kg, ONCE, STAT, Start date: 04/13/15 11:45:00, Stop date: 04/13/15 11:45:00 Flavioharriet marie Wallace topiramate 100 MG Oral Tablet [Topamax] 2014-04 16:04: 00 Yes 100 mg = 1 tab, PO, BID, # 60 tab, 0 Refill(s) Flavioharriet marie Wallace Topamax 2014-04 15:54: 00 No Notes: (Same As: Topamax) "Do Not Crush" David Wallace Sodium Chloride 0.154 MEQ/ML Injectable Solution 2014-04 14:39: 00 No 500 mL, 500 ml/hr, Infuse Over: 1 hr, Route: IV, 500, Drug form: INJ, ONCE, Priority: STAT, Dosing Weight 72.727 kg, Start date: 01/04/15 9:39:00, Duration: 1 doses or times, Stop date: 01/04/15 9:39:00 David Wallace Phenergan 2014-04 14:39: 00 No Notes: (Same as: Phenergan) David Wallace Lamictal 2014-04 14:37: 00 No Notes: (Same as:LaMICta l) David Wallace Saline Flush 0.9% 2014-04 14:37: 00 No Notes: (Same as: BD Posiflush) David Wallace 0.3 ML Epinephrine 1 MG/ML Prefilled Syringe [Epipen] 11-16 20:19: 00 Yes Special Instructio ns: as needed for severe allergic reaction David Wallace predniSONE 20 mg oral tablet 11-16 20:00: 00 Yes 40 mg = 2 tab, PO, Daily, X 5 day, # 10 tab, 0 Refill(s) David Wallace Diphenhydra mine Hydrochlori de 25 MG Oral Capsule [Benadryl] 11-16 20:00: 00 Yes 50 mg = 2 cap, PO, Q6H, PRN Itching, X 3 day, # 24 cap, 0 Refill(s) David Wallace Famotidine 40 MG Oral Tablet [Pepcid] 11-16 18:11: 00 No 40 mg, 1 tab, Route: PO, Drug form: TAB, ONCE, Dosing Weight 71.818, kg, Start date: 11/16/14 13:11:00, Stop date: 11/16/14 13:11:00 David Wallace Solu-Medrol 11-16 17:50: 00 No Notes: (Same as:Eber-ME Tereza ARGUELLO) David Wallace Sodium Chloride 0.154 MEQ/ML Injectable Solution 11-16 17:50: 00 No 1,000 mL, 1,000 ml/hr, Infuse Over: 1 hr, Route: IV, 1,000, Drug form: INJ, ONCE, Priority: STAT, Dosing Weight 71.818 kg, Start date: 11/16/14 12:50:00, Duration: 1 doses or times, Stop date: 11/16/14 12:50:00 aDvid Wallace Vivelle Dot 0.1mg/24 hr transdermal patch 06-30 14:00: 00 No Vivelle Dot 0.1mg/24 hr transderma l patch, 1 patch, Drug form: MISC, Route: TOP, QFri, 06/30/14 9:00:00, Duration: 30 day, Stop date: 07/28/14 9:00:00 David Wallace Chlordiazep oxide Hydrochlori de 5 MG / Clidinium bromide 2.5 MG Oral Capsule [Librax] 06-29 16:24: 00 Yes 1 cap, PO, QID, Stomach Upset, X 30 day, # 60 cap, 0 Refill(s) David Wallace Promethazin e Hydrochlori de 12.5 MG Oral Tablet [Phenergan] 06-29 16:24: 00 Yes 12.5 mg = 1 tab, PO, Q6H, Nausea & Vomiting, # 30 tab, 0 Refill(s) David Wallace Potassium Chloride 1.33 MEQ/ML Oral Solution 06-29 14:14: 00 No Notes: (Same as: Potassium Chloride) David Wallace Phenergan 06-29 14:14: 00 No 25 mg, 50 mL, Route: IVPB, Drug form: SOLN, Q8H, Dosing Weight 31.08, kg, PRN Nausea & Vomiting, Start date: 06/29/14 9:14:00, Duration: 30 day, Stop date: 07/29/14 9:13:00 David Wallace Midodrine 06-29 14:00: 00 No Notes: (Same as:Proamat ine) David Wallace Thyroxine 06-29 14:00: 00 No Notes: Take 1 hour before or 2 hours after meal; Enteral feeds may interefere with the absorption of this medication . (Same as:Synthro id, Levothroid ) David Wallace lamoTRIgine 25 mg oral tablet 06-29 14:00: 00 No Notes: (Same as:LaMICta l) David Wallace Vivelle-Dot 06-29 14:00: 00 No 1 patch, Route: TOP, Drug Form: ERFILM, Dosing Weight 31.08, kg, Daily, Start date: 06/29/14 9:00:00, Duration: 30 day, Stop date: 07/28/14 9:00:00 David Wallace Cymbalta 06-29 14:00: 00 No Notes: (Same as: Cymbalta) (Do Not Crush) David Wallace Vitamin C 06-29 14:00: 00 No Notes: (Same as: Vitamin C) David Wallace multivitami n 06-29 14:00: 00 No Notes: Give with food. (Same As: Glutofac)m ult David Wallace Vyvanse 80mg tab 06-29 14:00: 00 No Vyvanse 80mg tab, 80 mg, 1 tab, Drug form: MISC, Route: PO, QAM, 06/29/14 9:00:00, Duration: 30 day, Stop date: 07/28/14 9:00:00 David Wallace Dilaudid 06-29 05:28: 00 No Notes: (Same as: Dilaudid) David Wallace Ambien 06-29 05:00: 00 No Notes: (Same As: Ambien) David Wallace tizanidine 06-29 03:40: 00 No Notes: (Same As: Zanaflex) David Wallace Xanax 06-29 03:09: 00 Yes 0.5 mg, PO, TID, as needed for anxiety, 0 Refill(s) David Wallace duloxetine 60 MG Enteric Coated Capsule [Cymbalta] 06-29 03:09: 00 Yes 60 mg = 1 cap, PO, QAM, 0 Refill(s) David Wallace Vyvanse 06-29 03:06: 00 Yes 80 mg =, PO, QAM, 0 Refill(s) David Wallace Seroquel 06-29 03:04: 00 Yes 600 mg, PO, Bedtime, 0 Refill(s) David Wallace Ceftriaxone 06-29 02:00: 00 No Notes: (Same As: Rocephin). Use with 100ml NS mini-bag PLUS and infuse over 30 min David Wallace D5NS 1,000 mL 06-29 01:46: 00 No 1,000 mL, Rate: 125 ml/hr, Infuse over: 8 hr, Route: IV, Dosing Weight 67.727 kg, Total Volume: 1,000, Start date: 06/28/14 20:46:00, Duration: 30 day, Stop date: 07/28/14 20:45:00 David Wallace Bisacodyl 06-29 01:44: 00 No Notes: (Same As: Dulcolax, Bisco-Lax) David Wallace Acetaminoph en 06-29 01:43: 00 No Notes: Do not exceed 4 gm/day. (Same as: Tylenol) David Wallace Flagyl 06-29 00:55: 00 No Notes: (Same as: Flagyl) Avoid alcohol. David Wallace Cipro 06-29 00:54: 00 No 400 mg, Route: IVPB, ONCE, Dosing Weight 67.727, kg, Priority: STAT, Start date: 06/28/14 19:54:00, Stop date: 06/28/14 19:54:00 David Wallace Benadryl 06-28 23:45: 00 No Notes: (Same as: Benadryl) David Wallace Reglan 06-28 23:44: 00 No Notes: (Same as: Reglan) David Wallace Morphine 06-28 23:44: 00 No Notes: (Same as:MORPhin e Sulfate) David Wallace Sodium Chloride 0.154 MEQ/ML Injectable Solution 06-28 20:46: 00 No 1,000 mL, 1000 ml/hr, Infuse Over: 1 hr, Route: IV, 1,000, Drug form: INJ, ONCE, Priority: STAT, Dosing Weight 67.727 kg, Start date: 06/28/14 15:46:00, Duration: 1 doses or times, Stop date: 06/28/14 15:46:00 Flavioharriet marie Rodrigo Saline Flush 0.9% 06-28 20:46: 00 No Notes: (Same as: BD Posiflush) Flavioharriet marie Wallace Metronidazo le 500 MG Oral Tablet [Flagyl] 06-23 20:05: 00 Yes 500 mg = 1 tab, PO, Q8H, # 30 tab, 0 Refill(s) Flavioharriet marie Wallace Ciprofloxac in 500 MG Oral Tablet [Cipro] 06-23 20:05: 00 Yes 500 mg = 1 tab, PO, Q12H, # 20 tab, 0 Refill(s) David Wallace Docusate Sodium 100 MG Oral Capsule [Colace] 06-23 20:05: 00 Yes 100 mg = 1 cap, PO, BID, Constipati on, # 20 cap, 0 Refill(s) David Wallace Acetaminoph en 325 MG / Hydrocodone Bitartrate 5 MG Oral Tablet [Stanley 5/325] 06-23 13:47: 00 No 1 tab, Route: PO, Drug Form: TAB, Dosing Weight 70.455, kg, ONCE, STAT, Start date: 06/23/14 8:47:00, Stop date: 06/23/14 8:47:00 David Wallace Sodium Chloride 0.154 MEQ/ML Injectable Solution 06-23 13:47: 00 No 1,000 mL, 1,000 ml/hr, Infuse Over: 1 hr, Route: IV, ONCE, Priority: STAT, Dosing Weight 70.455 kg, Start date: 06/23/14 8:47:00, Duration: 1 doses or times, Stop date: 06/23/14 8:47:00 David Wallace Saline Flush 0.9% 06-23 13:47: 00 No Notes: (Same as: BD Posiflush) David Wallace Lorazepam 06-07 21:37: 00 No Notes: (Same as: Ativan) David Wallace Orphenadrin e 05-10 02:29: 00 No 60 mg, 2 mL, Route: IVP, Drug form: INJ, ONCE, Dosing Weight 65.909, kg, Priority: STAT, Start date: 05/09/14 20:29:00, Stop date: 05/09/14 20:29:00 David Wallace cyclobenzap rine 10 mg oral tablet 05-10 02:18: 00 Yes 10 mg, PO, TID, Muscle Spasm, # 30 tab, 0 Refill(s) David Wallace Visipaque 05-10 01:00: 00 No Notes: (Same as: Rogersipaque) . David Wallace Phenergan 05-10 00:27: 00 No Notes: Do not give IV push. (Same as: Phenergan) David Wallace Morphine 05-10 00:21: 00 No Notes: (Same as:MORPhin e Sulfate) David Wallace Saline Flush 0.9% 05-10 00:21: 00 No Notes: Same as: BD Posiflush Sterile David Wallace Lorazepam 05-10 00:21: 00 No Notes: (Same as: Ativan) Memharriet Wallace Saline Flush 0.9% 04-17 19:43: 00 No Notes: (Same as: BD Posiflush) David Wallace Fentanyl 04-17 19:42: 00 No Notes: (Same as: Sublimaze) Preservati ve free. David Wallace Saline Flush 0.9% 2013-04 21:34: 00 No Notes: (Same as: BD Posiflush) David Wallace lisdexamfet amine dimesylate 60 MG Oral Capsule [Vyvanse] 2013-04 15:42: 00 Yes 60 mg = 1 cap, PO, QAM, 0 Refill(s) David Wallace Phenergan 2013-04 15:24: 00 No 12.5 mg, Route: IVPB, ONCE, Dosing Weight 84.091, kg, Priority: STAT, Start date: 01/05/14 10:24:00, Stop date: 01/05/14 10:24:00 David Wallace Benadryl 2013-04 14:19: 00 No Notes: (Same as: Benadryl) David Wallace Morphine 2013-04 14:18: 00 No Notes: (Same as:MORPhin e Sulfate) David Wallace Alprazolam 0.5 MG Oral Tablet [Xanax] 11-24 17:44: 00 No 0.5 mg, Route: PO, Drug form: TAB, ONCE, Dosing Weight 68.636, kg, Priority: STAT, Start date: 11/24/13 12:44:00, Stop date: 11/24/13 12:44:00 David Wallace HYDROcodone -Acetaminop hen 5-325 MG Oral Tablet HYDROcodone -Acetaminop hen 5-325 MG Oral Tablet 04-15 00:00: 00 Yes STARLA RAWLS M.D. TAKE 1 TO 2 TABLETS EVERY 4 TO 6 HOURS NEEDED FOR PAIN. NO MORE THAN 8 TABLETS PER DAY. [facility] HYDROcodone -Acetaminop hen 5-325 MG Oral Tablet HYDROcodone -Acetaminop hen 5-325 MG Oral Tablet 2011-04 00:00: 00 Yes STARLA RAWLS M.D. 1-2 po q4-6 hours prn pain. [facility] traMADol HCl - 50 MG Oral Tablet traMADol HCl - 50 MG Oral Tablet 2011-04 00:00: 00 Yes STARLA RAWLS M.D. Take 1-2 po q4-6 hours prn pain. Do not exceed 8 in 24 hours. [facility] Levothyroxi ne Sodium 75 MCG Oral Tablet Levothyroxi ne Sodium 75 MCG Oral Tablet Yes [facility] Temazepam 15 MG Oral Capsule Temazepam 15 MG Oral Capsule Yes [facility] LORazepam 1 MG Oral Tablet LORazepam 1 MG Oral Tablet Yes [facility] Vitamin B Plus+ [facility] Vitamin B Plus+ CAPS Yes [facility] Immunizations Ordered Immunization Name Filled Immunization Name Date Status Comments Source TD, NOS 2023-12-29 00:00:00 Completed [facility] TD, NOS 2023-09-18 00:00:00 Completed [facility] TD, NOS 2023-09-17 12:32:56 Completed [facility] TD, NOS 2023-09-17 00:00:00 Completed [facility] TD, NOS 2023-09-16 00:00:00 Completed [facility] TD, NOS 2023-09-15 15:00:00 Completed [facility] TD, NOS 2023-09-10 09:45:00 Completed [facility] TD, NOS 2023-09-10 08:49:00 Completed [facility] TD, NOS 2023-08-30 15:00:00 Completed [facility] TD, NOS 2023-08-24 00:00:00 Completed [facility] TD, NOS 2023-08-19 00:00:00 Completed [facility] TD, NOS 2023-08-19 00:00:00 Completed [facility] TD, NOS 2023-08-18 13:00:00 Completed [facility] TD, NOS 2023-08-13 00:00:00 Completed [facility] TD, NOS 2023-08-07 15:15:00 Completed [facility] TD, NOS 2023-07-31 00:00:00 Completed [facility] TD, NOS 2023-07-30 16:00:00 Completed [facility] TD, NOS 2023-07-26 15:08:00 Completed [facility] TD, NOS 2023-07-23 00:00:00 Completed [facility] TD, NOS 2023-07-16 00:00:00 Completed [facility] TD, NOS 2023-07-08 13:00:00 Completed [facility] TD, NOS 2023-06-30 00:00:00 Completed [facility] TD, NOS 2023-06-29 14:30:00 Completed [facility] TD, NOS 2023-06-25 00:00:00 Completed [facility] TD, NOS 2023-06-12 08:30:00 Completed [facility] TD, NOS 2023-06-11 00:00:00 Completed [facility] TD, NOS 2023-06-02 15:11:00 Completed [facility] TD, NOS 2023-05-30 00:00:00 Completed [facility] TD, NOS 2023-05-29 00:00:00 Completed [facility] TD, NOS 2023-05-26 00:00:00 Completed [facility] TD, NOS 2023-05-20 00:00:00 Completed [facility] TD, NOS 2023-05-13 09:45:00 Completed [facility] TD, NOS 2023-05-13 09:00:00 Completed [facility] TD, NOS 2023-04-16 00:00:00 Completed [facility] TD, NOS 2023-04-02 00:00:00 Completed [facility] TD, NOS 2023-03-20 00:00:00 Completed [facility] TD, NOS 2023-03-17 17:50:16 Completed [facility] TD, NOS 2023-03-17 17:20:00 Completed [facility] TD, NOS 2023-03-14 00:00:00 Completed [facility] TD, NOS 2023-03-10 00:00:00 Completed [facility] TD, NOS 2023-03-10 00:00:00 Completed [facility] TD, NOS 2023-02-22 00:00:00 Completed [facility] TD, NOS 2023-02-18 00:00:00 Completed [facility] TD, NOS 2023-02-17 00:00:00 Completed [facility] TD, NOS 2023-02-16 00:00:00 Completed [facility] TD, NOS 2023-02-16 00:00:00 Completed [facility] TD, NOS 2023-02-13 00:00:00 Completed [facility] TD, NOS 2023-02-13 00:00:00 Completed [facility] TD, NOS 2023-02-07 00:00:00 Completed [facility] TD, NOS 2023-02-06 16:54:21 Completed [facility] TD, NOS 2023-02-06 00:00:00 Completed [facility] TD, NOS 2023-02-05 00:00:00 Completed [facility] TD, NOS 2023-02-04 00:00:00 Completed [facility] TD, NOS 2023-01-31 00:00:00 Completed [facility] TD, NOS 2023-01-30 08:00:00 Completed [facility] TD, NOS 2023-01-30 00:00:00 Completed [facility] TD, NOS 2023-01-26 00:00:00 Completed [facility] TD, NOS 2023-01-26 00:00:00 Completed [facility] TD, NOS 2023-01-23 14:00:00 Completed [facility] TD, NOS 2023-01-23 13:23:35 Completed [facility] TD, NOS 2023-01-21 00:00:00 Completed [facility] TD, NOS 2023-01-20 00:00:00 Completed [facility] TD, NOS 2023-01-06 00:00:00 Completed [facility] TD, NOS 2022-12-30 13:00:00 Completed [facility] TD, NOS 2022-12-12 00:00:00 Completed [facility] TD, NOS 2022-11-18 00:00:00 Completed [facility] TD, NOS 2022-10-29 00:00:00 Completed [facility] TD, NOS 2022-10-03 00:00:00 Completed [facility] TD, NOS 2022-09-24 00:00:00 Completed [facility] TD, NOS 2022-08-14 00:00:00 Completed [facility] TD, NOS 2022-06-10 00:00:00 Completed [facility] TD, NOS 2022-05-28 00:00:00 Completed [facility] TD, NOS 2022-03-17 00:00:00 Completed [facility] TD, NOS 2022-03-07 00:00:00 Completed [facility] TD, NOS 2022-02-11 00:00:00 Completed [facility] TD, NOS 2022-01-02 00:00:00 Completed [facility] TD, NOS 2021-05-27 00:00:00 Completed [facility] TD, NOS 2020-10-05 00:00:00 Completed [facility] TD, NOS 2020-09-21 00:00:00 Completed [facility] Td 2020-09-17 00:00:00 Completed [facility] Td 2020-09-17 00:00:00 Completed [facility] Td 2020-09-17 00:00:00 Completed [facility] Td 2020-09-17 00:00:00 Completed [facility] Td 2020-09-17 00:00:00 Completed [facility] Td 2020-09-17 00:00:00 Completed [facility] Td 2020-09-17 00:00:00 Completed [facility] Td 2020-09-17 00:00:00 Completed [facility] Td 2020-09-17 00:00:00 Completed [facility] Td 2020-09-17 00:00:00 Completed [facility] Td 2020-09-17 00:00:00 Completed [facility] Td 2020-09-17 00:00:00 Completed [facility] Td 2020-09-17 00:00:00 Completed [facility] Td 2020-09-17 00:00:00 Completed [facility] Td 2020-09-17 00:00:00 Completed [facility] Td 2020-09-17 00:00:00 Completed [facility] Td 2020-09-17 00:00:00 Completed [facility] Td 2020-09-17 00:00:00 Completed [facility] Td 2020-09-17 00:00:00 Completed [facility] Td 2020-09-17 00:00:00 Completed [facility] Td 2020-09-17 00:00:00 Completed [facility] Td 2020-09-17 00:00:00 Completed [facility] Td 2020-09-17 00:00:00 Completed [facility] Td 2020-09-17 00:00:00 Completed [facility] TD, NOS 2020-09-17 00:00:00 Completed [facility] TD, NOS 2020-09-17 00:00:00 Completed [facility] TD, NOS 2020-09-17 00:00:00 Completed [facility] TD, NOS 2020-09-17 00:00:00 Completed [facility] TD, NOS 2020-09-17 00:00:00 Completed [facility] TD, NOS 2020-09-17 00:00:00 Completed [facility] TD, NOS 2020-09-17 00:00:00 Completed [facility] TD, NOS 2020-09-17 00:00:00 Completed [facility] TD, NOS 2020-09-17 00:00:00 Completed [facility] TD, NOS 2020-09-17 00:00:00 Completed [facility] TD, NOS 2020-09-17 00:00:00 Completed [facility] TD, NOS 2020-09-17 00:00:00 Completed [facility] TD, NOS 2020-09-17 00:00:00 Completed [facility] TD, NOS 2020-09-17 00:00:00 Completed [facility] TD, NOS 2020-09-17 00:00:00 Completed [facility] TD, NOS 2020-09-17 00:00:00 Completed [facility] TD, NOS 2020-09-17 00:00:00 Completed [facility] TD, NOS 2020-09-17 00:00:00 Completed [facility] TD, NOS 2020-09-17 00:00:00 Completed [facility] TD, NOS 2020-09-17 00:00:00 Completed [facility] TD, NOS 2020-09-17 00:00:00 Completed [facility] TD, NOS 2020-09-17 00:00:00 Completed [facility] TD, NOS 2020-09-17 00:00:00 Completed [facility] TD, NOS 2020-09-17 00:00:00 Completed [facility] TD, NOS 2020-09-17 00:00:00 Completed [facility] TD, NOS 2020-09-17 00:00:00 Completed [facility] TD, NOS 2020-09-17 00:00:00 Completed [facility] TD, NOS 2020-09-17 00:00:00 Completed [facility] TD, NOS 2020-09-17 00:00:00 Completed [facility] TD, NOS 2020-09-17 00:00:00 Completed [facility] TD, NOS 2020-09-17 00:00:00 Completed [facility] TD, NOS 2020-09-17 00:00:00 Completed [facility] TD, NOS 2020-09-17 00:00:00 Completed [facility] TD, NOS 2020-09-17 00:00:00 Completed [facility] TD, NOS 2020-09-17 00:00:00 Completed [facility] TD, NOS 2020-09-17 00:00:00 Completed [facility] TD, NOS 2020-09-17 00:00:00 Completed [facility] TD, NOS 2020-09-17 00:00:00 Completed [facility] TD, NOS 2020-09-17 00:00:00 Completed [facility] TD, NOS 2020-09-17 00:00:00 Completed [facility] TD, NOS 2020-09-17 00:00:00 Completed [facility] TD, NOS 2020-09-17 00:00:00 Completed [facility] TD, NOS 2020-09-17 00:00:00 Completed [facility] TD, NOS 2020-09-17 00:00:00 Completed [facility] TD, NOS 2020-09-17 00:00:00 Completed [facility] TD, NOS 2020-09-17 00:00:00 Completed [facility] TD, NOS 2020-09-17 00:00:00 Completed [facility] TD, NOS 2020-09-17 00:00:00 Completed [facility] influenza virus vaccine, inactivated Unknown Completed [facility] pneumococcal 23-valent vaccine Unknown Completed [facility] influenza virus vaccine, inactivated Unknown Completed [facility] pneumococcal 23-valent vaccine Unknown Completed [facility] influenza virus vaccine, inactivated Unknown Completed [facility] pneumococcal 23-valent vaccine Unknown Completed [facility] influenza virus vaccine, inactivated Unknown Completed [facility] pneumococcal 23-valent vaccine Unknown Completed [facility] Vital Signs Vital Name Observation Time Observation Value Comments S ource Systolic blood pressure 2024-12-06 15:55:00 138 mm[Hg] [facility] Diastolic blood pressure 2024-12-06 15:55:00 82 mm[Hg] [facility] Heart rate 2024-12-06 15:55:00 77 /min [facility] Oxygen saturation in Arterial blood by Pulse oximetry 2024-12-06 15:55:00 98 /min [facility] Respiratory rate 2024-12-06 15:50:00 16 /min [facility] Body temperature 2024-12-06 13:41:22 37 Kristi [facility] Body height 2024-12-06 13:41:22 170.2 cm [facility] Body weight 2024-12-06 13:41:22 86.183 kg [facility] BMI 2024-12-06 13:41:22 29.76 kg/m2 [facility] Respiratory rate 2024-11-16 19:51:00 18 /min [facility] Body height 2024-11-16 19:51:00 170.2 cm [facility] Body weight 2024-11-16 19:51:00 87.544 kg [facility] BMI 2024-11-16 19:51:00 30.23 kg/m2 [facility] Systolic blood pressure 2024-07-05 18:34:00 140 mm[Hg] [facility] Diastolic blood pressure 2024-07-05 18:34:00 78 mm[Hg] [facility] Heart rate 2024-07-05 18:34:00 73 /min [facility] Body temperature 2024-07-05 18:34:00 36.39 Kristi [facility] Body height 2024-07-05 18:34:00 170.2 cm [facility] Body weight 2024-07-05 18:34:00 91.899 kg [facility] BMI 2024-07-05 18:34:00 31.73 kg/m2 [facility] Oxygen saturation in Arterial blood by Pulse oximetry 2024-07-05 18:34:00 98 /min [facility] Systolic blood pressure 2024-06-27 19:30:00 131 mm[Hg] [facility] Diastolic blood pressure 2024-06-27 19:30:00 89 mm[Hg] [facility] Heart rate 2024-06-27 19:30:00 62 /min [facility] Respiratory rate 2024-06-27 19:30:00 16 /min [facility] Oxygen saturation in Arterial blood by Pulse oximetry 2024-06-27 19:30:00 94 /min [facility] Body temperature 2024-06-27 18:39:00 36.83 Kristi [facility] Body height 2024-06-27 18:03:00 170.2 cm [facility] Body weight 2024-06-27 18:03:00 90.719 kg [facility] BMI 2024-06-27 18:03:00 31.32 kg/m2 [facility] Systolic blood pressure 2024-06-04 20:19:00 127 mm[Hg] [facility] Diastolic blood pressure 2024-06-04 20:19:00 82 mm[Hg] [facility] Heart rate 2024-06-04 20:18:00 103 /min [facility] Body temperature 2024-06-04 20:18:00 36.56 Kristi [facility] Respiratory rate 2024-06-04 20:18:00 18 /min [facility] Body weight 2024-06-04 20:18:00 91.763 kg [facility] BMI 2024-06-04 20:18:00 31.68 kg/m2 [facility] Oxygen saturation in Arterial blood by Pulse oximetry 2024-06-04 20:18:00 98 /min [facility] Systolic blood pressure 2024-05-23 17:42:00 133 mm[Hg] [facility] Diastolic blood pressure 2024-05-23 17:42:00 83 mm[Hg] [facility] Heart rate 2024-05-23 17:42:00 117 /min [facility] Body temperature 2024-05-23 17:42:00 37.06 Kristi [facility] Respiratory rate 2024-05-23 17:42:00 16 /min [facility] Body height 2024-05-23 17:42:00 170.2 cm [facility] Body weight 2024-05-23 17:42:00 90.833 kg [facility] BMI 2024-05-23 17:42:00 31.36 kg/m2 [facility] Oxygen saturation in Arterial blood by Pulse oximetry 2024-05-23 17:42:00 99 /min [facility] Respiratory rate 2024-05-16 18:13:00 16 /min [facility] Body height 2024-05-16 18:13:00 170.2 cm [facility] Body weight 2024-05-16 18:13:00 90.719 kg [facility] BMI 2024-05-16 18:13:00 31.32 kg/m2 [facility] Systolic blood pressure 2024-03-14 21:43:00 149 mm[Hg] [facility] Diastolic blood pressure 2024-03-14 21:43:00 96 mm[Hg] [facility] Heart rate 2024-03-14 21:40:00 85 /min [facility] Body temperature 2024-03-14 21:40:00 37.22 Kristi [facility] Body height 2024-03-14 21:40:00 170.2 cm [facility] Body weight 2024-03-14 21:40:00 92.08 kg [facility] BMI 2024-03-14 21:40:00 31.79 kg/m2 [facility] Oxygen saturation in Arterial blood by Pulse oximetry 2024-03-14 21:40:00 97 /min [facility] Systolic blood pressure 2024-03-08 21:13:00 162 mm[Hg] [facility] Diastolic blood pressure 2024-03-08 21:13:00 91 mm[Hg] [facility] Heart rate 2024-03-08 21:13:00 80 /min [facility] Respiratory rate 2024-03-08 21:13:00 16 /min [facility] Oxygen saturation in Arterial blood by Pulse oximetry 2024-03-08 21:13:00 98 /min [facility] Body temperature 2024-03-08 18:26:00 36.5 Kristi [facility] Body height 2024-03-08 18:26:00 170.2 cm [facility] Body weight 2024-03-08 18:26:00 90.719 kg [facility] BMI 2024-03-08 18:26:00 31.32 kg/m2 [facility] Systolic blood pressure 2024-02-11 20:58:00 136 mm[Hg] [facility] Diastolic blood pressure 2024-02-11 20:58:00 84 mm[Hg] [facility] Heart rate 2024-02-11 20:58:00 91 /min [facility] Body temperature 2024-02-11 20:53:00 36.17 Kristi [facility] Respiratory rate 2024-02-11 20:53:00 22 /min [facility] Body height 2024-02-11 20:53:00 170.2 cm [facility] Body weight 2024-02-11 20:53:00 89.54 kg [facility] BMI 2024-02-11 20:53:00 30.92 kg/m2 [facility] Oxygen saturation in Arterial blood by Pulse oximetry 2024-02-11 20:53:00 97 /min [facility] Heart rate 2024-02-01 20:10:00 92 /min [facility] Respiratory rate 2024-02-01 20:10:00 18 /min [facility] Oxygen saturation in Arterial blood by Pulse oximetry 2024-02-01 20:10:00 95 /min [facility] Systolic blood pressure 2024-02-01 20:05:00 150 mm[Hg] [facility] Diastolic blood pressure 2024-02-01 20:05:00 84 mm[Hg] [facility] Body temperature 2024-02-01 18:15:54 37.06 Kristi [facility] Body height 2024-02-01 18:15:54 170.2 cm [facility] Body weight 2024-02-01 18:15:54 92.08 kg [facility] BMI 2024-02-01 18:15:54 31.79 kg/m2 [facility] Systolic blood pressure 2023-12-31 23:55:00 159 mm[Hg] [facility] Diastolic blood pressure 2023-12-31 23:55:00 91 mm[Hg] [facility] Heart rate 2023-12-31 23:55:00 67 /min [facility] Body temperature 2023-12-31 23:55:00 36.44 Kristi [facility] Respiratory rate 2023-12-31 23:55:00 15 /min [facility] Oxygen saturation in Arterial blood by Pulse oximetry 2023-12-31 23:55:00 98 /min [facility] Body height 2023-12-31 21:37:00 170.2 cm [facility] Body weight 2023-12-31 21:37:00 92.443 kg [facility] BMI 2023-12-31 21:37:00 31.92 kg/m2 [facility] Systolic blood pressure 2023-12-17 19:30:00 133 mm[Hg] [facility] Diastolic blood pressure 2023-12-17 19:30:00 86 mm[Hg] [facility] Heart rate 2023-12-17 19:30:00 78 /min [facility] Respiratory rate 2023-12-17 19:30:00 12 /min [facility] Body height 2023-12-17 19:30:00 170.2 cm [facility] Body weight 2023-12-17 19:30:00 93.441 kg [facility] BMI 2023-12-17 19:30:00 32.26 kg/m2 [facility] Oxygen saturation in Arterial blood by Pulse oximetry 2023-12-17 19:30:00 97 /min [facility] Systolic blood pressure 2023-12-10 19:57:00 140 mm[Hg] [facility] Diastolic blood pressure 2023-12-10 19:57:00 89 mm[Hg] [facility] Heart rate 2023-12-10 19:57:00 84 /min [facility] Body temperature 2023-12-10 19:55:00 36 Kristi [facility] Respiratory rate 2023-12-10 19:55:00 20 /min [facility] Body weight 2023-12-10 19:55:00 95.709 kg [facility] BMI 2023-12-10 19:55:00 33.05 kg/m2 [facility] Oxygen saturation in Arterial blood by Pulse oximetry 2023-12-10 19:55:00 95 /min [facility] Systolic blood pressure 2023-12-03 17:30:00 123 mm[Hg] [facility] Diastolic blood pressure 2023-12-03 17:30:00 74 mm[Hg] [facility] Heart rate 2023-12-03 17:30:00 61 /min [facility] Respiratory rate 2023-12-03 17:30:00 16 /min [facility] Oxygen saturation in Arterial blood by Pulse oximetry 2023-12-03 17:30:00 100 /min [facility] Body temperature 2023-12-03 15:58:00 36.61 Kristi [facility] Body height 2023-12-03 15:58:00 170.2 cm [facility] Body weight 2023-12-03 15:58:00 89.812 kg [facility] BMI 2023-12-03 15:58:00 31.01 kg/m2 [facility] Systolic blood pressure 2023-12-03 17:30:00 123 mm[Hg] [facility] Diastolic blood pressure 2023-12-03 17:30:00 74 mm[Hg] [facility] Heart rate 2023-12-03 17:30:00 61 /min [facility] Respiratory rate 2023-12-03 17:30:00 16 /min [facility] Oxygen saturation in Arterial blood by Pulse oximetry 2023-12-03 17:30:00 100 /min [facility] Body temperature 2023-12-03 15:58:00 36.61 Kristi [facility] Body height 2023-12-03 15:58:00 170.2 cm [facility] Body weight 2023-12-03 15:58:00 89.812 kg [facility] BMI 2023-12-03 15:58:00 31.01 kg/m2 [facility] Systolic blood pressure 2023-11-04 18:55:00 152 mm[Hg] [facility] Diastolic blood pressure 2023-11-04 18:55:00 88 mm[Hg] [facility] Heart rate 2023-11-04 18:55:00 71 /min [facility] Respiratory rate 2023-11-04 18:55:00 16 /min [facility] Oxygen saturation in Arterial blood by Pulse oximetry 2023-11-04 18:55:00 92 /min [facility] Body temperature 2023-11-04 18:18:34 37 Kristi [facility] Body height 2023-11-04 18:16:00 170.2 cm [facility] Body weight 2023-11-04 18:16:00 90.719 kg [facility] BMI 2023-11-04 18:16:00 31.32 kg/m2 [facility] Systolic blood pressure 2023-10-15 13:52:00 156 mm[Hg] Provider notified [facility] Diastolic blood pressure 2023-10-15 13:52:00 104 mm[Hg] Provider notified [facility] Heart rate 2023-10-15 13:52:00 85 /min [facility] [facility] Body temperature 2023-10-15 13:49:00 36.33 Kristi [facility] Respiratory rate 2023-10-15 13:49:00 18 /min [facility] Body height 2023-10-15 13:49:00 170.2 cm [facility] Body weight 2023-10-15 13:49:00 92.579 kg [facility] BMI 2023-10-15 13:49:00 31.97 kg/m2 [facility] Oxygen saturation in Arterial blood by Pulse oximetry 2023-10-15 13:49:00 97 /min [facility] Systolic blood pressure 2023-09-10 16:47:00 105 mm[Hg] [facility] Diastolic blood pressure 2023-09-10 16:47:00 66 mm[Hg] [facility] Heart rate 2023-09-10 16:47:00 61 /min [facility] Respiratory rate 2023-09-10 16:47:00 15 /min [facility] Oxygen saturation in Arterial blood by Pulse oximetry 2023-09-10 16:47:00 96 /min [facility] Body temperature 2023-09-10 16:18:00 35.78 Kristi [facility] Body height 2023-09-10 14:11:00 170.2 cm [facility] Body weight 2023-09-10 14:11:00 94.167 kg [facility] BMI 2023-09-10 14:11:00 31.84 kg/m2 [facility] Systolic blood pressure 2023-09-10 14:11:00 168 mm[Hg] [facility] Diastolic blood pressure 2023-09-10 14:11:00 91 mm[Hg] [facility] Heart rate 2023-09-10 14:11:00 80 /min [facility] Body temperature 2023-09-10 14:11:00 36.5 Kristi [facility] Respiratory rate 2023-09-10 14:11:00 23 /min [facility] Body height 2023-09-10 14:11:00 170.2 cm [facility] Body weight 2023-09-10 14:11:00 94.167 kg [facility] BMI 2023-09-10 14:11:00 32.51 kg/m2 [facility] Oxygen saturation in Arterial blood by Pulse oximetry 2023-09-10 14:11:00 98 /min [facility] Systolic blood pressure 2023-08-30 20:00:00 120 mm[Hg] [facility] Diastolic blood pressure 2023-08-30 20:00:00 73 mm[Hg] [facility] Heart rate 2023-08-30 20:00:00 75 /min [facility] Body temperature 2023-08-30 20:00:00 36.61 Kristi [facility] Respiratory rate 2023-08-30 20:00:00 17 /min [facility] Body weight 2023-08-30 20:00:00 96.163 kg [facility] BMI 2023-08-30 20:00:00 33.20 kg/m2 [facility] Oxygen saturation in Arterial blood by Pulse oximetry 2023-08-30 20:00:00 98 /min [facility] Systolic blood pressure 2023-08-18 18:55:00 105 mm[Hg] [facility] Diastolic blood pressure 2023-08-18 18:55:00 72 mm[Hg] [facility] Heart rate 2023-08-18 18:55:00 67 /min [facility] Respiratory rate 2023-08-18 18:55:00 16 /min [facility] Oxygen saturation in Arterial blood by Pulse oximetry 2023-08-18 18:55:00 94 /min [facility] Body temperature 2023-08-18 17:59:00 36.94 Kristi [facility] Body height 2023-08-18 17:59:00 170.2 cm [facility] Body weight 2023-08-18 17:59:00 97.523 kg [facility] BMI 2023-08-18 17:59:00 33.67 kg/m2 [facility] Systolic blood pressure 2023-08-07 20:26:00 149 mm[Hg] [facility] Diastolic blood pressure 2023-08-07 20:26:00 78 mm[Hg] [facility] Heart rate 2023-08-07 20:26:00 65 /min [facility] Respiratory rate 2023-08-07 20:26:00 18 /min [facility] Body height 2023-08-07 20:26:00 170.2 cm [facility] Body weight 2023-08-07 20:26:00 97.07 kg [facility] BMI 2023-08-07 20:26:00 33.52 kg/m2 [facility] Oxygen saturation in Arterial blood by Pulse oximetry 2023-08-07 20:26:00 100 /min [facility] Systolic blood pressure 2023-07-30 21:10:00 151 mm[Hg] [facility] Diastolic blood pressure 2023-07-30 21:10:00 90 mm[Hg] [facility] Heart rate 2023-07-30 21:02:00 75 /min [facility] Body temperature 2023-07-30 21:02:00 36.11 Kristi [facility] Body height 2023-07-30 21:02:00 170.2 cm [facility] Body weight 2023-07-30 21:02:00 97.637 kg [facility] BMI 2023-07-30 21:02:00 33.71 kg/m2 [facility] Oxygen saturation in Arterial blood by Pulse oximetry 2023-07-30 21:02:00 96 /min [facility] Systolic blood pressure 2023-07-27 01:15:00 141 mm[Hg] [facility] Diastolic blood pressure 2023-07-27 01:15:00 87 mm[Hg] [facility] Heart rate 2023-07-27 01:15:00 76 /min [facility] Oxygen saturation in Arterial blood by Pulse oximetry 2023-07-27 01:15:00 98 /min [facility] Body temperature 2023-07-26 20:06:00 37.22 Kristi [facility] Respiratory rate 2023-07-26 20:06:00 20 /min [facility] Body height 2023-07-26 20:06:00 170.2 cm [facility] Body weight 2023-07-26 20:06:00 98.431 kg [facility] BMI 2023-07-26 20:06:00 33.99 kg/m2 [facility] Systolic blood pressure 2023-07-08 17:44:00 134 mm[Hg] [facility] Diastolic blood pressure 2023-07-08 17:44:00 82 mm[Hg] [facility] Heart rate 2023-07-08 17:44:00 73 /min [facility] Body temperature 2023-07-08 17:41:00 36.5 Kristi [facility] Respiratory rate 2023-07-08 17:41:00 16 /min [facility] Body height 2023-07-08 17:41:00 170.2 cm [facility] Body weight 2023-07-08 17:41:00 98.204 kg [facility] BMI 2023-07-08 17:41:00 33.91 kg/m2 [facility] Oxygen saturation in Arterial blood by Pulse oximetry 2023-07-08 17:41:00 96 /min [facility] Systolic blood pressure 2023-06-29 20:05:00 140 mm[Hg] [facility] Diastolic blood pressure 2023-06-29 20:05:00 76 mm[Hg] [facility] Heart rate 2023-06-29 20:05:00 71 /min [facility] Respiratory rate 2023-06-29 20:05:00 16 /min [facility] Oxygen saturation in Arterial blood by Pulse oximetry 2023-06-29 20:05:00 93 /min [facility] Body temperature 2023-06-29 19:00:15 36.56 Kristi [facility] Body height 2023-06-29 19:00:15 170.2 cm [facility] Body weight 2023-06-29 19:00:15 98.431 kg [facility] BMI 2023-06-29 19:00:15 33.99 kg/m2 [facility] Systolic blood pressure 2023-06-02 23:20:00 148 mm[Hg] [facility] Diastolic blood pressure 2023-06-02 23:20:00 85 mm[Hg] [facility] Heart rate 2023-06-02 23:20:00 88 /min [facility] Respiratory rate 2023-06-02 23:20:00 16 /min [facility] Oxygen saturation in Arterial blood by Pulse oximetry 2023-06-02 23:20:00 100 /min [facility] Body temperature 2023-06-02 21:08:00 37 Kristi [facility] Body height 2023-06-02 21:08:00 170.2 cm [facility] Body weight 2023-06-02 21:08:00 97.523 kg [facility] BMI 2023-06-02 21:08:00 33.67 kg/m2 [facility] Systolic blood pressure 2023-05-13 15:06:00 152 mm[Hg] pt states pain from new, denies s/s of disress [facility] Diastolic blood pressure 2023-05-13 15:06:00 90 mm[Hg] pt states pain from new, denies s/s of disress [facility] Heart rate 2023-05-13 15:06:00 85 /min [facility] Body temperature 2023-05-13 15:06:00 36.56 Kristi [facility] Respiratory rate 2023-05-13 15:06:00 16 /min [facility] Body height 2023-05-13 15:06:00 170.2 cm [facility] Body weight 2023-05-13 15:06:00 98.748 kg [facility] BMI 2023-05-13 15:06:00 34.10 kg/m2 [facility] Oxygen saturation in Arterial blood by Pulse oximetry 2023-05-13 15:06:00 96 /min [facility] Systolic blood pressure 2023-03-17 23:41:00 137 mm[Hg] [facility] Diastolic blood pressure 2023-03-17 23:41:00 83 mm[Hg] [facility] Heart rate 2023-03-17 23:39:00 84 /min [facility] Body temperature 2023-03-17 23:39:00 37.11 Kristi [facility] Respiratory rate 2023-03-17 23:39:00 14 /min [facility] Body height 2023-03-17 23:39:00 170.2 cm [facility] Body weight 2023-03-17 23:39:00 100.2 kg [facility] BMI 2023-03-17 23:39:00 34.60 kg/m2 [facility] Oxygen saturation in Arterial blood by Pulse oximetry 2023-03-17 23:39:00 99 /min [facility] Systolic blood pressure 2023-01-30 13:10:00 133 mm[Hg] [facility] Diastolic blood pressure 2023-01-30 13:10:00 84 mm[Hg] [facility] Heart rate 2023-01-30 13:02:00 98 /min [facility] Body temperature 2023-01-30 13:02:00 36.78 Kristi [facility] Respiratory rate 2023-01-30 13:02:00 20 /min [facility] Body height 2023-01-30 13:02:00 170.2 cm [facility] Body weight 2023-01-30 13:02:00 100.869 kg [facility] BMI 2023-01-30 13:02:00 34.83 kg/m2 [facility] Oxygen saturation in Arterial blood by Pulse oximetry 2023-01-30 13:02:00 98 /min [facility] Systolic blood pressure 2023-01-23 19:35:00 149 mm[Hg] [facility] Diastolic blood pressure 2023-01-23 19:35:00 85 mm[Hg] [facility] Heart rate 2023-01-23 19:35:00 89 /min [facility] Oxygen saturation in Arterial blood by Pulse oximetry 2023-01-23 19:35:00 99 /min [facility] Systolic blood pressure 2023-01-23 19:35:00 149 mm[Hg] [facility] Diastolic blood pressure 2023-01-23 19:35:00 85 mm[Hg] [facility] Heart rate 2023-01-23 19:35:00 89 /min [facility] Oxygen saturation in Arterial blood by Pulse oximetry 2023-01-23 19:35:00 99 /min [facility] Respiratory rate 2023-01-23 19:30:00 18 /min [facility] Respiratory rate 2023-01-23 19:30:00 18 /min [facility] Body temperature 2023-01-23 18:00:49 37 Kristi [facility] Body height 2023-01-23 18:00:49 170.2 cm [facility] Body weight 2023-01-23 18:00:49 99.791 kg [facility] BMI 2023-01-23 18:00:49 34.46 kg/m2 [facility] Body temperature 2023-01-23 18:00:49 37 Kristi [facility] Body height 2023-01-23 18:00:49 170.2 cm [facility] Body weight 2023-01-23 18:00:49 99.791 kg [facility] BMI 2023-01-23 18:00:49 34.46 kg/m2 [facility] Systolic blood pressure 2022-12-30 17:55:00 141 mm[Hg] [facility] Diastolic blood pressure 2022-12-30 17:55:00 85 mm[Hg] [facility] Heart rate 2022-12-30 17:55:00 91 /min [facility] Body height 2022-12-30 17:53:00 170.2 cm [facility] Body weight 2022-12-30 17:53:00 100.245 kg [facility] BMI 2022-12-30 17:53:00 34.61 kg/m2 [facility] Systolic blood pressure 2022-12-16 07:39:00 146 mm[Hg] [facility] Diastolic blood pressure 2022-12-16 07:39:00 78 mm[Hg] [facility] Heart rate 2022-12-16 07:39:00 98 /min [facility] Body temperature 2022-12-16 07:39:00 36.72 Kristi [facility] Respiratory rate 2022-12-16 07:39:00 16 /min [facility] Oxygen saturation in Arterial blood by Pulse oximetry 2022-12-16 07:39:00 98 /min [facility] Body weight 2022-12-16 04:32:00 102.513 kg [facility] BMI 2022-12-16 04:32:00 35.40 kg/m2 [facility] Systolic blood pressure 2022-11-27 00:59:00 114 mm[Hg] [facility] Diastolic blood pressure 2022-11-27 00:59:00 78 mm[Hg] [facility] Heart rate 2022-11-27 00:59:00 91 /min [facility] Body temperature 2022-11-27 00:59:00 36.83 Kristi [facility] Respiratory rate 2022-11-27 00:59:00 16 /min [facility] Body weight 2022-11-27 00:59:00 102.83 kg [facility] BMI 2022-11-27 00:59:00 35.51 kg/m2 [facility] Oxygen saturation in Arterial blood by Pulse oximetry 2022-11-27 00:59:00 97 /min [facility] Systolic blood pressure 2022-11-03 16:10:20 136 mm[Hg] [facility] Diastolic blood pressure 2022-11-03 16:10:20 85 mm[Hg] [facility] Heart rate 2022-11-03 16:10:20 87 /min [facility] Oxygen saturation in Arterial blood by Pulse oximetry 2022-11-03 16:10:20 95 /min [facility] Respiratory rate 2022-11-03 16:05:45 16 /min [facility] Body temperature 2022-11-03 14:41:00 37.06 Kristi [facility] Body height 2022-11-03 14:41:00 170.2 cm [facility] Body weight 2022-11-03 14:41:00 99.791 kg [facility] BMI 2022-11-03 14:41:00 34.46 kg/m2 [facility] Systolic blood pressure 2022-10-31 17:00:00 144 mm[Hg] [facility] Diastolic blood pressure 2022-10-31 17:00:00 86 mm[Hg] [facility] Heart rate 2022-10-31 17:00:00 92 /min [facility] Body temperature 2022-10-31 17:00:00 36.5 Kristi [facility] Respiratory rate 2022-10-31 17:00:00 15 /min [facility] Body height 2022-10-28 15:40:00 170.2 cm [facility] Body weight 2022-10-28 15:40:00 99.791 kg [facility] BMI 2022-10-28 15:40:00 34.46 kg/m2 [facility] Systolic blood pressure 2022-10-09 01:34:00 137 mm[Hg] [facility] Diastolic blood pressure 2022-10-09 01:34:00 89 mm[Hg] [facility] Heart rate 2022-10-09 01:31:00 96 /min [facility] Body temperature 2022-10-09 01:31:00 37 Kristi [facility] Respiratory rate 2022-10-09 01:31:00 16 /min [facility] Body height 2022-10-09 01:31:00 170.2 cm [facility] Body weight 2022-10-09 01:31:00 101.016 kg [facility] BMI 2022-10-09 01:31:00 34.88 kg/m2 [facility] Oxygen saturation in Arterial blood by Pulse oximetry 2022-10-09 01:31:00 97 /min [facility] Systolic blood pressure 2022-10-02 19:18:00 128 mm[Hg] [facility] Diastolic blood pressure 2022-10-02 19:18:00 79 mm[Hg] [facility] Heart rate 2022-10-02 19:18:00 98 /min [facility] Body height 2022-10-02 19:18:00 170.2 cm [facility] Body weight 2022-10-02 19:18:00 101.651 kg [facility] BMI 2022-10-02 19:18:00 35.10 kg/m2 [facility] Oxygen saturation in Arterial blood by Pulse oximetry 2022-10-02 19:18:00 97 /min [facility] Systolic blood pressure 2022-09-29 23:24:00 108 mm[Hg] [facility] Diastolic blood pressure 2022-09-29 23:24:00 83 mm[Hg] [facility] Heart rate 2022-09-29 23:24:00 107 /min [facility] Body temperature 2022-09-29 23:24:00 36.94 Kristi [facility] Respiratory rate 2022-09-29 23:24:00 16 /min [facility] Body height 2022-09-29 23:24:00 170.2 cm [facility] Body weight 2022-09-29 23:24:00 102.74 kg [facility] BMI 2022-09-29 23:24:00 35.47 kg/m2 [facility] Oxygen saturation in Arterial blood by Pulse oximetry 2022-09-29 23:24:00 98 /min [facility] Systolic blood pressure 2022-09-29 19:50:00 138 mm[Hg] [facility] Diastolic blood pressure 2022-09-29 19:50:00 83 mm[Hg] [facility] Heart rate 2022-09-29 19:50:00 94 /min [facility] Respiratory rate 2022-09-29 19:50:00 16 /min [facility] Oxygen saturation in Arterial blood by Pulse oximetry 2022-09-29 19:50:00 93 /min [facility] Body temperature 2022-09-29 19:09:00 36.61 Kristi [facility] Body height 2022-09-29 19:09:00 170.2 cm [facility] Body weight 2022-09-29 19:09:00 97.523 kg [facility] BMI 2022-09-29 19:09:00 33.67 kg/m2 [facility] Systolic blood pressure 2022-09-04 19:04:00 132 mm[Hg] [facility] Diastolic blood pressure 2022-09-04 19:04:00 79 mm[Hg] [facility] Heart rate 2022-09-04 19:04:00 99 /min [facility] Respiratory rate 2022-09-04 19:04:00 12 /min [facility] Body height 2022-09-04 19:04:00 170.2 cm [facility] Body weight 2022-09-04 19:04:00 97.977 kg [facility] BMI 2022-09-04 19:04:00 33.83 kg/m2 [facility] Oxygen saturation in Arterial blood by Pulse oximetry 2022-09-04 19:04:00 97 /min [facility] Systolic blood pressure 2022-07-28 19:50:00 127 mm[Hg] [facility] Diastolic blood pressure 2022-07-28 19:50:00 68 mm[Hg] [facility] Heart rate 2022-07-28 19:50:00 91 /min [facility] Respiratory rate 2022-07-28 19:40:00 18 /min [facility] Body height 2022-07-28 17:44:00 170.2 cm [facility] Body weight 2022-07-28 17:44:00 97.977 kg [facility] BMI 2022-07-28 17:44:00 33.83 kg/m2 [facility] Systolic blood pressure 2022-07-11 20:42:00 140 mm[Hg] [facility] Diastolic blood pressure 2022-07-11 20:42:00 88 mm[Hg] [facility] Heart rate 2022-07-11 20:35:00 93 /min [facility] Body temperature 2022-07-11 20:35:00 36.61 Kristi [facility] Respiratory rate 2022-07-11 20:35:00 18 /min [facility] Body weight 2022-07-11 20:35:00 99.474 kg [facility] BMI 2022-07-11 20:35:00 34.35 kg/m2 [facility] Oxygen saturation in Arterial blood by Pulse oximetry 2022-07-11 20:35:00 98 /min [facility] Systolic blood pressure 2022-07-07 13:06:00 139 mm[Hg] [facility] Diastolic blood pressure 2022-07-07 13:06:00 78 mm[Hg] [facility] Heart rate 2022-07-07 13:06:00 95 /min [facility] Body temperature 2022-07-07 13:06:00 36.11 Kristi [facility] Respiratory rate 2022-07-07 13:06:00 17 /min [facility] Body height 2022-07-07 13:06:00 170.2 cm [facility] Body weight 2022-07-07 13:06:00 99.701 kg [facility] BMI 2022-07-07 13:06:00 34.43 kg/m2 [facility] Oxygen saturation in Arterial blood by Pulse oximetry 2022-07-07 13:06:00 96 /min [facility] Systolic blood pressure 2022-06-17 18:37:00 126 mm[Hg] [facility] Diastolic blood pressure 2022-06-17 18:37:00 79 mm[Hg] [facility] Heart rate 2022-06-17 18:37:00 90 /min [facility] Body temperature 2022-06-17 18:37:00 36.11 Kristi [facility] Respiratory rate 2022-06-17 18:37:00 18 /min [facility] Body height 2022-06-17 18:37:00 170.2 cm [facility] Body weight 2022-06-17 18:37:00 98.385 kg [facility] BMI 2022-06-17 18:37:00 33.97 kg/m2 [facility] Oxygen saturation in Arterial blood by Pulse oximetry 2022-06-17 18:37:00 97 /min [facility] Systolic blood pressure 2022-05-15 02:04:00 154 mm[Hg] [facility] Diastolic blood pressure 2022-05-15 02:04:00 104 mm[Hg] [facility] Heart rate 2022-05-15 02:04:00 88 /min [facility] Body temperature 2022-05-15 02:04:00 37.11 Kristi [facility] Respiratory rate 2022-05-15 02:04:00 18 /min [facility] Body height 2022-05-15 02:04:00 170.2 cm [facility] Body weight 2022-05-15 02:04:00 97.523 kg [facility] BMI 2022-05-15 02:04:00 33.67 kg/m2 [facility] Oxygen saturation in Arterial blood by Pulse oximetry 2022-05-15 02:04:00 98 /min [facility] Systolic blood pressure 2022-05-08 23:40:00 138 mm[Hg] [facility] Diastolic blood pressure 2022-05-08 23:40:00 81 mm[Hg] [facility] Heart rate 2022-05-08 23:40:00 89 /min [facility] Body temperature 2022-05-08 23:40:00 36.83 Kristi [facility] Respiratory rate 2022-05-08 23:40:00 17 /min [facility] Body height 2022-05-08 23:40:00 170.2 cm [facility] Body weight 2022-05-08 23:40:00 97.614 kg [facility] BMI 2022-05-08 23:40:00 33.71 kg/m2 [facility] Oxygen saturation in Arterial blood by Pulse oximetry 2022-05-08 23:40:00 98 /min [facility] Heart rate 2022-04-28 16:57:00 84 /min [facility] Systolic blood pressure 2022-04-28 16:50:00 108 mm[Hg] [facility] Diastolic blood pressure 2022-04-28 16:50:00 70 mm[Hg] [facility] Respiratory rate 2022-04-28 16:45:00 16 /min [facility] Body temperature 2022-04-28 15:30:00 37.17 Kristi [facility] Body height 2022-04-28 15:30:00 170.2 cm [facility] Body weight 2022-04-28 15:30:00 92.534 kg [facility] BMI 2022-04-28 15:30:00 31.95 kg/m2 [facility] Oxygen saturation in Arterial blood by Pulse oximetry 2022-04-28 15:30:00 95 /min [facility] Systolic blood pressure 2022-03-26 21:58:00 134 mm[Hg] [facility] Diastolic blood pressure 2022-03-26 21:58:00 78 mm[Hg] [facility] Heart rate 2022-03-26 21:58:00 87 /min [facility] Respiratory rate 2022-03-26 21:58:00 12 /min [facility] Body height 2022-03-26 21:58:00 170.2 cm [facility] Body weight 2022-03-26 21:58:00 95.255 kg [facility] BMI 2022-03-26 21:58:00 32.89 kg/m2 [facility] Oxygen saturation in Arterial blood by Pulse oximetry 2022-03-26 21:58:00 97 /min [facility] Systolic blood pressure 2022-03-21 23:28:00 147 mm[Hg] [facility] Diastolic blood pressure 2022-03-21 23:28:00 83 mm[Hg] [facility] Heart rate 2022-03-21 23:28:00 91 /min [facility] Body temperature 2022-03-21 23:28:00 36.94 Kristi [facility] Respiratory rate 2022-03-21 23:28:00 18 /min [facility] Body height 2022-03-21 23:28:00 170.2 cm [facility] Body weight 2022-03-21 23:28:00 95.029 kg [facility] BMI 2022-03-21 23:28:00 32.81 kg/m2 [facility] Oxygen saturation in Arterial blood by Pulse oximetry 2022-03-21 23:28:00 97 /min [facility] Systolic blood pressure 2022-02-17 16:30:00 129 mm[Hg] [facility] Diastolic blood pressure 2022-02-17 16:30:00 78 mm[Hg] [facility] Heart rate 2022-02-17 16:30:00 88 /min [facility] Respiratory rate 2022-02-17 16:30:00 16 /min [facility] Body temperature 2022-02-17 15:02:00 36.67 Kristi [facility] Body height 2022-02-17 15:02:00 170.2 cm [facility] Body weight 2022-02-17 15:02:00 93.895 kg [facility] BMI 2022-02-17 15:02:00 32.42 kg/m2 [facility] Oxygen saturation in Arterial blood by Pulse oximetry 2022-02-17 15:02:00 97 /min [facility] Systolic blood pressure 2022-02-10 15:29:00 142 mm[Hg] [facility] Diastolic blood pressure 2022-02-10 15:29:00 87 mm[Hg] [facility] Heart rate 2022-02-10 15:27:00 93 /min [facility] Body temperature 2022-02-10 15:27:00 36.56 Kristi [facility] Respiratory rate 2022-02-10 15:27:00 18 /min [facility] Body height 2022-02-10 15:27:00 170.2 cm [facility] Body weight 2022-02-10 15:27:00 94.076 kg [facility] BMI 2022-02-10 15:27:00 32.48 kg/m2 [facility] Oxygen saturation in Arterial blood by Pulse oximetry 2022-02-10 15:27:00 97 /min [facility] Heart rate 2022-02-07 19:24:00 99 /min [facility] Systolic blood pressure 2022-02-07 19:15:00 133 mm[Hg] [facility] Diastolic blood pressure 2022-02-07 19:15:00 96 mm[Hg] [facility] Respiratory rate 2022-02-07 19:15:00 16 /min [facility] Oxygen saturation in Arterial blood by Pulse oximetry 2022-02-07 19:15:00 99 /min [facility] Body temperature 2022-02-07 18:00:00 36.22 Kristi [facility] Body weight 2022-02-07 15:32:32 96.616 kg [facility] BMI 2022-02-07 15:32:32 33.36 kg/m2 [facility] Systolic blood pressure 2022-01-07 23:11:00 150 mm[Hg] [facility] Diastolic blood pressure 2022-01-07 23:11:00 88 mm[Hg] [facility] Heart rate 2022-01-07 23:06:00 84 /min [facility] Body temperature 2022-01-07 23:06:00 36.61 Kristi [facility] Respiratory rate 2022-01-07 23:06:00 16 /min [facility] Body height 2022-01-07 23:06:00 170.2 cm [facility] Body weight 2022-01-07 23:06:00 95.346 kg [facility] BMI 2022-01-07 23:06:00 32.92 kg/m2 [facility] Oxygen saturation in Arterial blood by Pulse oximetry 2022-01-07 23:06:00 98 /min [facility] Systolic blood pressure 2021-08-02 21:07:00 135 mm[Hg] [facility] Diastolic blood pressure 2021-08-02 21:07:00 90 mm[Hg] [facility] Heart rate 2021-08-02 21:07:00 97 /min [facility] Respiratory rate 2021-08-02 21:07:00 14 /min [facility] Body weight 2021-08-02 21:07:00 95.255 kg [facility] BMI 2021-08-02 21:07:00 32.89 kg/m2 [facility] Systolic blood pressure 2021-08-02 21:07:00 135 mm[Hg] [facility] Diastolic blood pressure 2021-08-02 21:07:00 90 mm[Hg] [facility] Heart rate 2021-08-02 21:07:00 97 /min [facility] Respiratory rate 2021-08-02 21:07:00 14 /min [facility] Body weight 2021-08-02 21:07:00 95.255 kg [facility] BMI 2021-08-02 21:07:00 32.89 kg/m2 [facility] Systolic blood pressure 2024-12-06 15:55:00 138 mm[Hg] [facility] Diastolic blood pressure 2024-12-06 15:55:00 82 mm[Hg] [facility] Heart rate 2024-12-06 15:55:00 77 /min [facility] Oxygen saturation in Arterial blood by Pulse oximetry 2024-12-06 15:55:00 98 /min [facility] Respiratory rate 2024-12-06 15:50:00 16 /min [facility] Body temperature 2024-12-06 13:41:22 37 Kristi [facility] Body height 2024-12-06 13:41:22 170.2 cm [facility] Body weight 2024-12-06 13:41:22 86.183 kg [facility] BMI 2024-12-06 13:41:22 29.76 kg/m2 [facility] Systolic blood pressure 2024-11-24 12:49:00 159 mm[Hg] [facility] Diastolic blood pressure 2024-11-24 12:49:00 86 mm[Hg] [facility] Heart rate 2024-11-24 12:49:00 81 /min [facility] Respiratory rate 2024-11-24 12:44:00 20 /min [facility] Body height 2024-11-24 12:44:00 170.2 cm [facility] Body weight 2024-11-24 12:44:00 86.41 kg [facility] BMI 2024-11-24 12:44:00 29.84 kg/m2 [facility] Systolic blood pressure 2024-11-11 20:59:00 138 mm[Hg] [facility] Diastolic blood pressure 2024-11-11 20:59:00 80 mm[Hg] [facility] Heart rate 2024-11-11 20:59:00 83 /min [facility] Respiratory rate 2024-11-11 20:55:00 20 /min [facility] Body height 2024-11-11 20:55:00 170.2 cm [facility] Body weight 2024-11-11 20:55:00 87.68 kg [facility] BMI 2024-11-11 20:55:00 30.28 kg/m2 [facility] Systolic blood pressure 2024-08-19 12:36:00 127 mm[Hg] [facility] Diastolic blood pressure 2024-08-19 12:36:00 82 mm[Hg] [facility] Heart rate 2024-08-19 12:36:00 75 /min [facility] Respiratory rate 2024-08-19 12:36:00 20 /min [facility] Body height 2024-08-19 12:36:00 170.2 cm [facility] Body weight 2024-08-19 12:36:00 90.674 kg [facility] BMI 2024-08-19 12:36:00 31.31 kg/m2 [facility] Systolic blood pressure 2024-07-05 18:34:00 140 mm[Hg] [facility] Diastolic blood pressure 2024-07-05 18:34:00 78 mm[Hg] [facility] Heart rate 2024-07-05 18:34:00 73 /min [facility] Body temperature 2024-07-05 18:34:00 36.39 Kristi [facility] Body height 2024-07-05 18:34:00 170.2 cm [facility] Body weight 2024-07-05 18:34:00 91.899 kg [facility] BMI 2024-07-05 18:34:00 31.73 kg/m2 [facility] Oxygen saturation in Arterial blood by Pulse oximetry 2024-07-05 18:34:00 98 /min [facility] Respiratory rate 2024-06-27 19:30:00 16 /min [facility] Respiratory rate 2024-05-16 18:13:00 16 /min [facility] Body height 2024-05-16 18:13:00 170.2 cm [facility] Body weight 2024-05-16 18:13:00 90.719 kg [facility] BMI 2024-05-16 18:13:00 31.32 kg/m2 [facility] Systolic blood pressure 2024-05-13 21:05:00 148 mm[Hg] [facility] Diastolic blood pressure 2024-05-13 21:05:00 77 mm[Hg] [facility] Heart rate 2024-05-13 21:05:00 90 /min [facility] Respiratory rate 2024-05-13 20:58:00 18 /min [facility] Body height 2024-05-13 20:58:00 170.2 cm [facility] Body weight 2024-05-13 20:58:00 94.53 kg [facility] BMI 2024-05-13 20:58:00 32.64 kg/m2 [facility] Systolic blood pressure 2024-03-14 21:43:00 149 mm[Hg] [facility] Diastolic blood pressure 2024-03-14 21:43:00 96 mm[Hg] [facility] Heart rate 2024-03-14 21:40:00 85 /min [facility] Body temperature 2024-03-14 21:40:00 37.22 Kristi [facility] Body height 2024-03-14 21:40:00 170.2 cm [facility] Body weight 2024-03-14 21:40:00 92.08 kg [facility] BMI 2024-03-14 21:40:00 31.79 kg/m2 [facility] Oxygen saturation in Arterial blood by Pulse oximetry 2024-03-14 21:40:00 97 /min [facility] Respiratory rate 2024-03-08 21:13:00 16 /min [facility] Systolic blood pressure 2024-02-11 20:58:00 136 mm[Hg] [facility] Diastolic blood pressure 2024-02-11 20:58:00 84 mm[Hg] [facility] Heart rate 2024-02-11 20:58:00 91 /min [facility] Body temperature 2024-02-11 20:53:00 36.17 Kristi [facility] Respiratory rate 2024-02-11 20:53:00 22 /min [facility] Body height 2024-02-11 20:53:00 170.2 cm [facility] Body weight 2024-02-11 20:53:00 89.54 kg [facility] BMI 2024-02-11 20:53:00 30.92 kg/m2 [facility] Oxygen saturation in Arterial blood by Pulse oximetry 2024-02-11 20:53:00 97 /min [facility] Heart rate 2024-02-01 20:10:00 92 /min [facility] Respiratory rate 2024-02-01 20:10:00 18 /min [facility] Oxygen saturation in Arterial blood by Pulse oximetry 2024-02-01 20:10:00 95 /min [facility] Systolic blood pressure 2024-02-01 20:05:00 150 mm[Hg] [facility] Diastolic blood pressure 2024-02-01 20:05:00 84 mm[Hg] [facility] Body temperature 2024-02-01 18:15:54 37.06 Kristi [facility] Body height 2024-02-01 18:15:54 170.2 cm [facility] Body weight 2024-02-01 18:15:54 92.08 kg [facility] BMI 2024-02-01 18:15:54 31.79 kg/m2 [facility] Systolic blood pressure 2023-12-31 23:55:00 159 mm[Hg] [facility] Diastolic blood pressure 2023-12-31 23:55:00 91 mm[Hg] [facility] Heart rate 2023-12-31 23:55:00 67 /min [facility] Body temperature 2023-12-31 23:55:00 36.44 Kristi [facility] Respiratory rate 2023-12-31 23:55:00 15 /min [facility] Oxygen saturation in Arterial blood by Pulse oximetry 2023-12-31 23:55:00 98 /min [facility] Body height 2023-12-31 21:37:00 170.2 cm [facility] Body weight 2023-12-31 21:37:00 92.443 kg [facility] BMI 2023-12-31 21:37:00 31.92 kg/m2 [facility] Systolic blood pressure 2023-12-17 12:32:00 131 mm[Hg] [facility] Diastolic blood pressure 2023-12-17 12:32:00 82 mm[Hg] [facility] Heart rate 2023-12-17 12:32:00 80 /min [facility] Respiratory rate 2023-12-17 12:32:00 20 /min [facility] Body height 2023-12-17 12:32:00 170.2 cm [facility] Body weight 2023-12-17 12:32:00 93.441 kg [facility] BMI 2023-12-17 12:32:00 32.26 kg/m2 [facility] Systolic blood pressure 2023-12-10 19:57:00 140 mm[Hg] [facility] Diastolic blood pressure 2023-12-10 19:57:00 89 mm[Hg] [facility] Heart rate 2023-12-10 19:57:00 84 /min [facility] Body temperature 2023-12-10 19:55:00 36 Kristi [facility] Respiratory rate 2023-12-10 19:55:00 20 /min [facility] Body weight 2023-12-10 19:55:00 95.709 kg [facility] BMI 2023-12-10 19:55:00 33.05 kg/m2 [facility] Oxygen saturation in Arterial blood by Pulse oximetry 2023-12-10 19:55:00 95 /min [facility] Body height 2023-12-03 15:58:00 170.2 cm [facility] Systolic blood pressure 2023-11-04 18:55:00 152 mm[Hg] [facility] Diastolic blood pressure 2023-11-04 18:55:00 88 mm[Hg] [facility] Heart rate 2023-11-04 18:55:00 71 /min [facility] Respiratory rate 2023-11-04 18:55:00 16 /min [facility] Oxygen saturation in Arterial blood by Pulse oximetry 2023-11-04 18:55:00 92 /min [facility] Body temperature 2023-11-04 18:18:34 37 Kristi [facility] Body height 2023-11-04 18:16:00 170.2 cm [facility] Body weight 2023-11-04 18:16:00 90.719 kg [facility] BMI 2023-11-04 18:16:00 31.32 kg/m2 [facility] Systolic (mm Hg) 2023-09-28 20:15:00 [facility] Diastolic (mm Hg) 2023-09-28 20:15:00 [facility] Heart Rate 2023-09-25 20:42:44 [facility] Temperature Oral (F) 2023-09-25 20:41:58 98.6 F [facility] Height 2023-09-25 20:39:00 5 [ft_i] [facility] Weight 2023-09-25 20:39:00 [facility] BMI Calculated 2023-09-25 20:39:00 [facility] Body height 2023-09-17 17:00:00 170.2 cm [facility] Body weight 2023-09-17 17:00:00 92.216 kg [facility] BMI 2023-09-17 17:00:00 31.84 kg/m2 [facility] Systolic blood pressure 2023-09-10 16:47:00 105 mm[Hg] [facility] Diastolic blood pressure 2023-09-10 16:47:00 66 mm[Hg] [facility] Heart rate 2023-09-10 16:47:00 61 /min [facility] Respiratory rate 2023-09-10 16:47:00 15 /min [facility] Oxygen saturation in Arterial blood by Pulse oximetry 2023-09-10 16:47:00 96 /min [facility] Body temperature 2023-09-10 16:18:00 35.78 Kristi [facility] Body height 2023-09-10 14:11:00 170.2 cm [facility] Body weight 2023-09-10 14:11:00 94.167 kg [facility] BMI 2023-09-10 14:11:00 32.51 kg/m2 [facility] Systolic blood pressure 2023-07-08 17:44:00 134 mm[Hg] [facility] Diastolic blood pressure 2023-07-08 17:44:00 82 mm[Hg] [facility] Heart rate 2023-07-08 17:44:00 73 /min [facility] Body temperature 2023-07-08 17:41:00 36.5 Kristi [facility] Respiratory rate 2023-07-08 17:41:00 16 /min [facility] Body height 2023-07-08 17:41:00 170.2 cm [facility] Body weight 2023-07-08 17:41:00 98.204 kg [facility] BMI 2023-07-08 17:41:00 33.91 kg/m2 [facility] Oxygen saturation in Arterial blood by Pulse oximetry 2023-07-08 17:41:00 96 /min [facility] Systolic blood pressure 2023-06-29 20:05:00 140 mm[Hg] [facility] Diastolic blood pressure 2023-06-29 20:05:00 76 mm[Hg] [facility] Heart rate 2023-06-29 20:05:00 71 /min [facility] Respiratory rate 2023-06-29 20:05:00 16 /min [facility] Oxygen saturation in Arterial blood by Pulse oximetry 2023-06-29 20:05:00 93 /min [facility] Body temperature 2023-06-29 19:00:15 36.56 Kristi [facility] Body height 2023-06-29 19:00:15 170.2 cm [facility] Body weight 2023-06-29 19:00:15 98.431 kg [facility] BMI 2023-06-29 19:00:15 33.99 kg/m2 [facility] Systolic blood pressure 2023-05-13 15:06:00 152 mm[Hg] pt states pain from new, denies s/s of disress [facility] Diastolic blood pressure 2023-05-13 15:06:00 90 mm[Hg] pt states pain from new, denies s/s of disress [facility] Heart rate 2023-05-13 15:06:00 85 /min [facility] Body temperature 2023-05-13 15:06:00 36.56 Kristi [facility] Respiratory rate 2023-05-13 15:06:00 16 /min [facility] Body height 2023-05-13 15:06:00 170.2 cm [facility] Body weight 2023-05-13 15:06:00 98.748 kg [facility] BMI 2023-05-13 15:06:00 34.10 kg/m2 [facility] Oxygen saturation in Arterial blood by Pulse oximetry 2023-05-13 15:06:00 96 /min [facility] Systolic (mm Hg) 2023-04-09 15:33:00 [facility] Diastolic (mm Hg) 2023-04-09 15:33:00 [facility] Height 2023-04-03 17:28:00 5 [ft_i] [facility] Weight 2023-04-03 17:28:00 [facility] BMI Calculated 2023-04-03 17:28:00 [facility] Systolic blood pressure 2023-04-02 21:46:00 129 mm[Hg] [facility] Diastolic blood pressure 2023-04-02 21:46:00 81 mm[Hg] [facility] Heart rate 2023-04-02 21:46:00 80 /min [facility] Respiratory rate 2023-04-02 21:46:00 18 /min [facility] Body height 2023-04-02 21:46:00 170.2 cm [facility] Body weight 2023-04-02 21:46:00 100.336 kg [facility] BMI 2023-04-02 21:46:00 34.64 kg/m2 [facility] Systolic blood pressure 2023-03-17 23:41:00 137 mm[Hg] [facility] Diastolic blood pressure 2023-03-17 23:41:00 83 mm[Hg] [facility] Heart rate 2023-03-17 23:39:00 84 /min [facility] Body temperature 2023-03-17 23:39:00 37.11 Kristi [facility] Respiratory rate 2023-03-17 23:39:00 14 /min [facility] Body height 2023-03-17 23:39:00 170.2 cm [facility] Body weight 2023-03-17 23:39:00 100.2 kg [facility] BMI 2023-03-17 23:39:00 34.60 kg/m2 [facility] Oxygen saturation in Arterial blood by Pulse oximetry 2023-03-17 23:39:00 99 /min [facility] Systolic blood pressure 2023-01-30 13:10:00 133 mm[Hg] [facility] Diastolic blood pressure 2023-01-30 13:10:00 84 mm[Hg] [facility] Heart rate 2023-01-30 13:02:00 98 /min [facility] Body temperature 2023-01-30 13:02:00 36.78 Kristi [facility] Respiratory rate 2023-01-30 13:02:00 20 /min [facility] Body height 2023-01-30 13:02:00 170.2 cm [facility] Body weight 2023-01-30 13:02:00 100.869 kg [facility] BMI 2023-01-30 13:02:00 34.83 kg/m2 [facility] Oxygen saturation in Arterial blood by Pulse oximetry 2023-01-30 13:02:00 98 /min [facility] Systolic blood pressure 2022-12-30 17:55:00 141 mm[Hg] [facility] Diastolic blood pressure 2022-12-30 17:55:00 85 mm[Hg] [facility] Heart rate 2022-12-30 17:55:00 91 /min [facility] Body height 2022-12-30 17:53:00 170.2 cm [facility] Body weight 2022-12-30 17:53:00 100.245 kg [facility] BMI 2022-12-30 17:53:00 34.61 kg/m2 [facility] Body temperature 2022-12-16 07:39:00 36.72 Kristi [facility] Respiratory rate 2022-12-16 07:39:00 16 /min [facility] Oxygen saturation in Arterial blood by Pulse oximetry 2022-12-16 07:39:00 98 /min [facility] Systolic blood pressure 2022-11-07 20:06:00 135 mm[Hg] [facility] Diastolic blood pressure 2022-11-07 20:06:00 85 mm[Hg] [facility] Heart rate 2022-11-07 20:06:00 91 /min [facility] Respiratory rate 2022-11-07 20:06:00 18 /min [facility] Body height 2022-11-07 20:06:00 170.2 cm [facility] Body weight 2022-11-07 20:06:00 101.379 kg [facility] BMI 2022-11-07 20:06:00 35.01 kg/m2 [facility] Oxygen saturation in Arterial blood by Pulse oximetry 2022-11-03 16:10:20 95 /min [facility] Body temperature 2022-11-03 14:41:00 37.06 Kristi [facility] Systolic blood pressure 2022-10-09 01:34:00 137 mm[Hg] [facility] Diastolic blood pressure 2022-10-09 01:34:00 89 mm[Hg] [facility] Heart rate 2022-10-09 01:31:00 96 /min [facility] Body temperature 2022-10-09 01:31:00 37 Kristi [facility] Respiratory rate 2022-10-09 01:31:00 16 /min [facility] Body height 2022-10-09 01:31:00 170.2 cm [facility] Body weight 2022-10-09 01:31:00 101.016 kg [facility] BMI 2022-10-09 01:31:00 34.88 kg/m2 [facility] Oxygen saturation in Arterial blood by Pulse oximetry 2022-10-09 01:31:00 97 /min [facility] Systolic blood pressure 2022-09-29 23:24:00 108 mm[Hg] [facility] Diastolic blood pressure 2022-09-29 23:24:00 83 mm[Hg] [facility] Heart rate 2022-09-29 23:24:00 107 /min [facility] Body temperature 2022-09-29 23:24:00 36.94 Kristi [facility] Respiratory rate 2022-09-29 23:24:00 16 /min [facility] Body height 2022-09-29 23:24:00 170.2 cm [facility] Body weight 2022-09-29 23:24:00 102.74 kg [facility] BMI 2022-09-29 23:24:00 35.47 kg/m2 [facility] Oxygen saturation in Arterial blood by Pulse oximetry 2022-09-29 23:24:00 98 /min [facility] Systolic blood pressure 2022-09-04 20:54:00 134 mm[Hg] [facility] Diastolic blood pressure 2022-09-04 20:54:00 86 mm[Hg] [facility] Heart rate 2022-09-04 20:54:00 99 /min [facility] Respiratory rate 2022-09-04 20:54:00 20 /min [facility] Body height 2022-09-04 20:54:00 170.2 cm [facility] Body weight 2022-09-04 20:54:00 100.109 kg [facility] BMI 2022-09-04 20:54:00 34.57 kg/m2 [facility] Oxygen saturation in Arterial blood by Pulse oximetry 2022-09-04 19:04:00 97 /min [facility] Systolic blood pressure 2022-07-11 20:42:00 140 mm[Hg] [facility] Diastolic blood pressure 2022-07-11 20:42:00 88 mm[Hg] [facility] Heart rate 2022-07-11 20:35:00 93 /min [facility] Body temperature 2022-07-11 20:35:00 36.61 Kristi [facility] Respiratory rate 2022-07-11 20:35:00 18 /min [facility] Body weight 2022-07-11 20:35:00 99.474 kg [facility] BMI 2022-07-11 20:35:00 34.35 kg/m2 [facility] Oxygen saturation in Arterial blood by Pulse oximetry 2022-07-11 20:35:00 98 /min [facility] Body height 2022-07-07 13:06:00 170.2 cm [facility] Heart rate 2022-04-28 16:57:00 84 /min [facility] Systolic blood pressure 2022-04-28 16:50:00 108 mm[Hg] [facility] Diastolic blood pressure 2022-04-28 16:50:00 70 mm[Hg] [facility] Respiratory rate 2022-04-28 16:45:00 16 /min [facility] Body temperature 2022-04-28 15:30:00 37.17 Kristi [facility] Body height 2022-04-28 15:30:00 170.2 cm [facility] Body weight 2022-04-28 15:30:00 92.534 kg [facility] BMI 2022-04-28 15:30:00 31.95 kg/m2 [facility] Oxygen saturation in Arterial blood by Pulse oximetry 2022-04-28 15:30:00 95 /min [facility] Systolic blood pressure 2022-04-03 13:44:00 146 mm[Hg] [facility] Diastolic blood pressure 2022-04-03 13:44:00 85 mm[Hg] [facility] Heart rate 2022-04-03 13:44:00 91 /min [facility] Respiratory rate 2022-04-03 13:43:00 20 /min [facility] Body height 2022-04-03 13:43:00 170.2 cm [facility] Body weight 2022-04-03 13:43:00 92.806 kg [facility] BMI 2022-04-03 13:43:00 32.04 kg/m2 [facility] Systolic blood pressure 2022-03-26 21:58:00 134 mm[Hg] [facility] Diastolic blood pressure 2022-03-26 21:58:00 78 mm[Hg] [facility] Heart rate 2022-03-26 21:58:00 87 /min [facility] Respiratory rate 2022-03-26 21:58:00 12 /min [facility] Body height 2022-03-26 21:58:00 170.2 cm [facility] Body weight 2022-03-26 21:58:00 95.255 kg [facility] BMI 2022-03-26 21:58:00 32.89 kg/m2 [facility] Oxygen saturation in Arterial blood by Pulse oximetry 2022-03-26 21:58:00 97 /min [facility] Body temperature 2022-03-21 23:28:00 36.94 Kristi [facility] Systolic blood pressure 2022-02-10 15:29:00 142 mm[Hg] [facility] Diastolic blood pressure 2022-02-10 15:29:00 87 mm[Hg] [facility] Heart rate 2022-02-10 15:27:00 93 /min [facility] Body temperature 2022-02-10 15:27:00 36.56 Kristi [facility] Respiratory rate 2022-02-10 15:27:00 18 /min [facility] Body height 2022-02-10 15:27:00 170.2 cm [facility] Body weight 2022-02-10 15:27:00 94.076 kg [facility] BMI 2022-02-10 15:27:00 32.48 kg/m2 [facility] Oxygen saturation in Arterial blood by Pulse oximetry 2022-02-10 15:27:00 97 /min [facility] Systolic blood pressure 2021-12-11 01:40:00 153 mm[Hg] [facility] Diastolic blood pressure 2021-12-11 01:40:00 92 mm[Hg] [facility] Heart rate 2021-12-11 01:39:00 72 /min [facility] Body temperature 2021-12-11 01:39:00 36.89 Kristi [facility] Respiratory rate 2021-12-11 01:39:00 18 /min [facility] Body height 2021-12-11 01:39:00 157.5 cm [facility] Body weight 2021-12-11 01:39:00 94.076 kg [facility] BMI 2021-12-11 01:39:00 37.93 kg/m2 [facility] Oxygen saturation in Arterial blood by Pulse oximetry 2021-12-11 01:39:00 97 /min [facility] Heart Rate 2021-06-14 15:50:48 [facility] Rate 2021-06-14 15:50:48 [facility] Systolic (mm Hg) 2021-06-14 15:50:42 [facility] Diastolic (mm Hg) 2021-06-14 15:50:42 [facility] Heart Rate 2021-06-14 15:50:42 [facility] Heart Rate 2021-06-14 09:19:22 [facility] Respitory Rate 2021-06-14 09:19:22 [facility] Systolic (mm Hg) 2021-06-14 09:19:16 [facility] Diastolic (mm Hg) 2021-06-14 09:19:16 [facility] Temperature Oral (F) 2021-06-14 09:18:51 98.3 F [facility] Respitory Rate 2021-06-14 05:51:34 [facility] Systolic (mm Hg) 2021-06-14 05:49:00 [facility] Diastolic (mm Hg) 2021-06-14 05:49:00 [facility] Temperature Oral (F) 2021-06-14 05:48:42 98.5 F [facility] Height 2021-06-13 23:55:00 170.18 cm [facility] Weight 2021-06-13 23:55:00 [facility] BMI Calculated 2021-06-13 23:55:00 [facility] Height 2021-06-13 17:41:00 170.18 cm [facility] BMI Calculated 2021-06-13 17:41:00 [facility] Weight 2021-06-13 17:41:00 [facility] Temperature Oral (F) 2021-06-13 17:41:00 98 F [facility] Respitory Rate 2020-08-06 18:14:00 [facility] Weight 2020-08-06 15:47:00 [facility] Systolic (mm Hg) 2020-08-06 15:47:00 [facility] Diastolic (mm Hg) 2020-08-06 15:47:00 [facility] Heart Rate 2020-08-06 15:47:00 [facility] Respitory Rate 2020-08-06 15:47:00 [facility] Temperature Oral (F) 2020-08-06 15:47:00 98.3 F [facility] Respitory Rate 2020-06-19 14:00:00 [facility] Systolic (mm Hg) 2020-06-19 14:00:00 [facility] Diastolic (mm Hg) 2020-06-19 14:00:00 [facility] Respitory Rate 2020-06-19 13:45:00 [facility] Systolic (mm Hg) 2020-06-19 13:45:00 [facility] Diastolic (mm Hg) 2020-06-19 13:45:00 [facility] Respitory Rate 2020-06-19 13:30:00 [facility] Systolic (mm Hg) 2020-06-19 13:30:00 [facility] Diastolic (mm Hg) 2020-06-19 13:30:00 [facility] Height 2020-06-14 21:35:00 167.64 cm [facility] Weight 2020-06-14 21:35:00 [facility] BMI Calculated 2020-06-14 21:35:00 [facility] Respitory Rate 2020-05-17 16:15:00 [facility] Respitory Rate 2020-05-17 16:00:00 [facility] Systolic (mm Hg) 2020-05-17 16:00:00 [facility] Diastolic (mm Hg) 2020-05-17 16:00:00 [facility] Respitory Rate 2020-05-17 15:45:00 [facility] Systolic (mm Hg) 2020-05-17 15:45:00 [facility] Diastolic (mm Hg) 2020-05-17 15:45:00 [facility] Systolic (mm Hg) 2020-05-17 15:30:00 [facility] Diastolic (mm Hg) 2020-05-17 15:30:00 [facility] Heart Rate 2020-05-17 12:06:00 [facility] Heart Rate 2020-05-16 20:25:00 [facility] Height 2020-05-16 20:18:00 167.64 cm [facility] Weight 2020-05-16 20:18:00 [facility] BMI Calculated 2020-05-16 20:18:00 [facility] Respitory Rate 2019-12-08 18:00:00 [facility] Systolic (mm Hg) 2019-12-08 18:00:00 [facility] Diastolic (mm Hg) 2019-12-08 18:00:00 [facility] Respitory Rate 2019-12-08 17:45:00 [facility] Systolic (mm Hg) 2019-12-08 17:45:00 [facility] Diastolic (mm Hg) 2019-12-08 17:45:00 [facility] Respitory Rate 2019-12-08 17:30:00 [facility] Systolic (mm Hg) 2019-12-08 17:30:00 [facility] Diastolic (mm Hg) 2019-12-08 17:30:00 [facility] Heart Rate 2019-12-08 12:48:00 [facility] Heart Rate 2019-12-05 20:45:00 [facility] Height 2019-12-05 20:35:00 165.74 cm [facility] Weight 2019-12-05 20:35:00 [facility] BMI Calculated 2019-12-05 20:35:00 [facility] Heart Rate 2016-04-15 19:32:00 [facility] Respitory Rate 2016-04-15 19:32:00 [facility] Systolic (mm Hg) 2016-04-15 19:32:00 [facility] Diastolic (mm Hg) 2016-04-15 19:32:00 [facility] Temperature Oral (F) 2016-04-15 19:32:00 98.3 F [facility] BMI Calculated 2016-04-15 15:44:00 [facility] Weight 2016-04-15 15:44:00 [facility] Height 2016-04-15 15:44:00 170.18 cm [facility] Temperature Oral (F) 2016-04-15 15:44:00 98.6 F [facility] Respitory Rate 2016-04-15 15:44:00 [facility] Heart Rate 2016-04-15 15:44:00 [facility] Systolic (mm Hg) 2016-04-15 15:44:00 [facility] Diastolic (mm Hg) 2016-04-15 15:44:00 [facility] Systolic (mm Hg) 2015-11-03 03:58:00 [facility] Diastolic (mm Hg) 2015-11-03 03:58:00 [facility] Respitory Rate 2015-11-03 03:58:00 [facility] Respitory Rate 2015-11-03 01:00:00 [facility] Systolic (mm Hg) 2015-11-03 01:00:00 [facility] Diastolic (mm Hg) 2015-11-03 01:00:00 [facility] Respitory Rate 2015-11-03 00:00:00 [facility] Systolic (mm Hg) 2015-11-03 00:00:00 [facility] Diastolic (mm Hg) 2015-11-03 00:00:00 [facility] Weight 2015-11-02 21:41:00 [facility] Temperature Oral (F) 2015-11-02 21:41:00 98.6 F [facility] Height 2015-11-02 21:41:00 162.56 cm [facility] BMI Calculated 2015-11-02 21:41:00 [facility] Heart Rate 2015-11-02 21:41:00 [facility] BMI Calculated 2015-08-28 19:42:00 [facility] Height 2015-08-28 19:42:00 170.18 cm [facility] Weight 2015-08-28 19:42:00 [facility] Heart Rate 2015-08-28 19:42:00 [facility] Systolic (mm Hg) 2015-08-28 19:42:00 [facility] Diastolic (mm Hg) 2015-08-28 19:42:00 [facility] Respitory Rate 2015-08-28 19:42:00 [facility] Temperature Oral (F) 2015-08-28 19:42:00 98.3 F [facility] Respitory Rate 2015-08-08 17:15:00 [facility] Systolic (mm Hg) 2015-08-08 17:15:00 [facility] Diastolic (mm Hg) 2015-08-08 17:15:00 [facility] Respitory Rate 2015-08-08 17:00:00 [facility] Systolic (mm Hg) 2015-08-08 17:00:00 [facility] Diastolic (mm Hg) 2015-08-08 17:00:00 [facility] Respitory Rate 2015-08-08 16:50:00 [facility] Systolic (mm Hg) 2015-08-08 16:45:00 [facility] Diastolic (mm Hg) 2015-08-08 16:45:00 [facility] Heart Rate 2015-08-08 13:00:00 [facility] BMI Calculated 2015-08-01 22:34:00 [facility] Weight 2015-08-01 22:34:00 [facility] Height 2015-08-01 22:34:00 167.64 cm [facility] Heart Rate 2015-08-01 21:00:00 [facility] Respitory Rate 2015-07-19 13:54:00 [facility] Diastolic (mm Hg) 2015-07-19 11:21:00 [facility] Respitory Rate 2015-07-19 11:21:00 [facility] Heart Rate 2015-07-19 11:21:00 [facility] Temperature Oral (F) 2015-07-19 11:21:00 98.0 F [facility] Systolic (mm Hg) 2015-07-19 11:21:00 [facility] Temperature Oral (F) 2015-07-19 04:31:00 98.1 F [facility] Respitory Rate 2015-07-19 04:31:00 [facility] Systolic (mm Hg) 2015-07-19 04:31:00 [facility] Diastolic (mm Hg) 2015-07-19 04:31:00 [facility] Heart Rate 2015-07-19 04:31:00 [facility] Systolic (mm Hg) 2015-07-18 23:30:00 [facility] Diastolic (mm Hg) 2015-07-18 23:30:00 [facility] Temperature Oral (F) 2015-07-18 23:30:00 98.2 F [facility] Heart Rate 2015-07-18 23:30:00 [facility] Height 2015-07-17 03:10:00 170.18 cm [facility] BMI Calculated 2015-07-17 03:10:00 [facility] Weight 2015-07-17 03:10:00 [facility] BMI Calculated 2015-07-16 22:05:00 [facility] Weight 2015-07-16 22:05:00 [facility] Height 2015-07-16 22:05:00 167.64 cm [facility] Temperature Oral (F) 2015-06-25 22:53:00 98.0 F [facility] Systolic (mm Hg) 2015-06-25 22:53:00 [facility] Diastolic (mm Hg) 2015-06-25 22:53:00 [facility] Heart Rate 2015-06-25 22:53:00 [facility] Respitory Rate 2015-06-25 22:53:00 [facility] BMI Calculated 2015-06-25 20:16:00 [facility] Weight 2015-06-25 20:16:00 [facility] Height 2015-06-25 20:16:00 170.18 cm [facility] Systolic (mm Hg) 2015-06-25 20:16:00 [facility] Diastolic (mm Hg) 2015-06-25 20:16:00 [facility] Respitory Rate 2015-06-25 20:16:00 [facility] Heart Rate 2015-06-25 20:16:00 [facility] Systolic (mm Hg) 2015-06-08 17:45:00 [facility] Diastolic (mm Hg) 2015-06-08 17:45:00 [facility] Respitory Rate 2015-06-08 17:45:00 [facility] Respitory Rate 2015-06-08 17:30:00 [facility] Systolic (mm Hg) 2015-06-08 17:30:00 [facility] Diastolic (mm Hg) 2015-06-08 17:30:00 [facility] Systolic (mm Hg) 2015-06-08 17:15:00 [facility] Diastolic (mm Hg) 2015-06-08 17:15:00 [facility] Respitory Rate 2015-06-08 17:15:00 [facility] Heart Rate 2015-06-08 14:00:00 [facility] Heart Rate 2015-06-07 16:50:00 [facility] Temperature Oral (F) 2015-06-07 16:50:00 98.2 F [facility] Weight 2015-06-07 16:29:00 [facility] BMI Calculated 2015-06-07 16:29:00 [facility] Height 2015-06-07 16:29:00 170.18 cm [facility] Weight 2015-06-04 13:11:00 [facility] Height 2015-06-04 13:11:00 170.18 cm [facility] BMI Calculated 2015-06-04 13:11:00 [facility] Systolic (mm Hg) 2015-06-04 13:11:00 [facility] Diastolic (mm Hg) 2015-06-04 13:11:00 [facility] Respitory Rate 2015-06-04 13:11:00 [facility] Heart Rate 2015-06-04 13:11:00 [facility] Temperature Oral (F) 2015-06-04 13:11:00 97.9 F [facility] Temperature Oral (F) 2015-05-25 05:28:00 98.2 F [facility] Respitory Rate 2015-05-25 05:28:00 [facility] Heart Rate 2015-05-25 05:28:00 [facility] Systolic (mm Hg) 2015-05-25 05:28:00 [facility] Diastolic (mm Hg) 2015-05-25 05:28:00 [facility] Weight 2015-05-25 01:50:00 [facility] Height 2015-05-25 01:50:00 170.18 cm [facility] BMI Calculated 2015-05-25 01:50:00 [facility] Systolic (mm Hg) 2015-05-25 01:50:00 [facility] Diastolic (mm Hg) 2015-05-25 01:50:00 [facility] Respitory Rate 2015-05-25 01:50:00 [facility] Heart Rate 2015-05-25 01:50:00 [facility] Temperature Oral (F) 2015-05-25 01:50:00 98.0 F [facility] Temperature Oral (F) 2015-05-08 06:28:00 98.5 F [facility] Respitory Rate 2015-05-08 06:28:00 [facility] Systolic (mm Hg) 2015-05-08 06:28:00 [facility] Diastolic (mm Hg) 2015-05-08 06:28:00 [facility] Heart Rate 2015-05-08 06:28:00 [facility] Respitory Rate 2015-05-08 05:01:00 [facility] Systolic (mm Hg) 2015-05-08 05:01:00 [facility] Diastolic (mm Hg) 2015-05-08 05:01:00 [facility] Rate 2015-05-08 05:01:00 [facility] Weight 2015-05-08 03:55:00 [facility] Temperature Oral (F) 2015-05-08 03:55:00 98.9 F [facility] Heart Rate 2015-05-08 03:55:00 [facility] Respitory Rate 2015-05-08 03:55:00 [facility] Systolic (mm Hg) 2015-05-08 03:55:00 [facility] Diastolic (mm Hg) 2015-05-08 03:55:00 [facility] Heart Rate 2015-04-14 21:10:00 [facility] Respitory Rate 2015-04-14 21:10:00 [facility] Systolic (mm Hg) 2015-04-14 21:10:00 [facility] Diastolic (mm Hg) 2015-04-14 21:10:00 [facility] Weight 2015-04-14 21:10:00 [facility] BMI Calculated 2015-04-14 21:10:00 [facility] Height 2015-04-14 21:10:00 170.18 cm [facility] Temperature Oral (F) 2015-04-14 21:10:00 98.7 F [facility] Rate 2015-04-13 18:58:00 [facility] Systolic (mm Hg) 2015-04-13 18:58:00 [facility] Diastolic (mm Hg) 2015-04-13 18:58:00 [facility] Respitory Rate 2015-04-13 18:58:00 [facility] BMI Calculated 2015-04-13 17:43:00 [facility] Height 2015-04-13 17:43:00 170.18 cm [facility] Weight 2015-04-13 17:43:00 [facility] Heart Rate 2015-04-13 17:43:00 [facility] Respitory Rate 2015-04-13 17:43:00 [facility] Systolic (mm Hg) 2015-04-13 17:43:00 [facility] Diastolic (mm Hg) 2015-04-13 17:43:00 [facility] Systolic (mm Hg) 2015-01-04 16:48:00 [facility] Diastolic (mm Hg) 2015-01-04 16:48:00 [facility] Respitory Rate 2015-01-04 16:48:00 [facility] Respitory Rate 2015-01-04 16:18:00 [facility] Systolic (mm Hg) 2015-01-04 16:18:00 [facility] Diastolic (mm Hg) 2015-01-04 16:18:00 [facility] Respitory Rate 2015-01-04 14:12:00 [facility] Systolic (mm Hg) 2015-01-04 14:12:00 [facility] Diastolic (mm Hg) 2015-01-04 14:12:00 [facility] BMI Calculated 2015-01-04 13:22:00 [facility] Weight 2015-01-04 13:22:00 [facility] Temperature Oral (F) 2015-01-04 13:22:00 78.1 F [facility] Height 2015-01-04 13:22:00 170.18 cm [facility] 2015-01-04 13:22:00 [facility] Rate 2014-11-16 20:23:00 [facility] Systolic (mm Hg) 2014-11-16 20:23:00 [facility] Diastolic (mm Hg) 2014-11-16 20:23:00 [facility] Respitory Rate 2014-11-16 20:23:00 [facility] Respitory Rate 2014-11-16 19:23:00 [facility] Heart Rate 2014-11-16 19:23:00 [facility] Systolic (mm Hg) 2014-11-16 19:23:00 [facility] Diastolic (mm Hg) 2014-11-16 19:23:00 [facility] Temperature Oral (F) 2014-11-16 19:23:00 98.6 F [facility] 2014-11-16 17:31:00 [facility] Systolic (mm Hg) 2014-11-16 17:31:00 [facility] Diastolic (mm Hg) 2014-11-16 17:31:00 [facility] BMI Calculated 2014-11-16 17:26:00 [facility] Height 2014-11-16 17:26:00 170.18 cm [facility] Respitory Rate 2014-11-16 17:26:00 [facility] Weight 2014-11-16 17:26:00 [facility] Temperature Oral (F) 2014-06-29 13:00:00 98.4 F [facility] Respitory Rate 2014-06-29 12:42:00 [facility] Systolic (mm Hg) 2014-06-29 12:42:00 [facility] Diastolic (mm Hg) 2014-06-29 12:42:00 [facility] Temperature Oral (F) 2014-06-29 09:00:00 97.8 F [facility] Systolic (mm Hg) 2014-06-29 09:00:00 [facility] Diastolic (mm Hg) 2014-06-29 09:00:00 [facility] Heart Rate 2014-06-29 09:00:00 [facility] Respitory Rate 2014-06-29 09:00:00 [facility] Temperature Oral (F) 2014-06-29 05:00:00 98.1 F [facility] 2014-06-29 05:00:00 [facility] Respitory Rate 2014-06-29 05:00:00 [facility] Systolic (mm Hg) 2014-06-29 05:00:00 [facility] Diastolic (mm Hg) 2014-06-29 05:00:00 [facility] Rate 2014-06-29 02:40:00 [facility] Weight 2014-06-29 02:37:00 [facility] BMI Calculated 2014-06-29 02:37:00 [facility] Height 2014-06-29 02:37:00 167.64 cm [facility] Height 2014-06-28 20:12:00 167.64 cm [facility] Weight 2014-06-28 20:12:00 [facility] BMI Calculated 2014-06-28 20:12:00 [facility] Heart Rate 2014-06-23 19:30:00 [facility] Respitory Rate 2014-06-23 19:30:00 [facility] Systolic (mm Hg) 2014-06-23 19:30:00 [facility] Diastolic (mm Hg) 2014-06-23 19:30:00 [facility] Respitory Rate 2014-06-23 18:20:00 [facility] Rate 2014-06-23 18:20:00 [facility] Systolic (mm Hg) 2014-06-23 18:20:00 [facility] Diastolic (mm Hg) 2014-06-23 18:20:00 [facility] Rate 2014-06-23 15:51:00 [facility] Respitory Rate 2014-06-23 15:51:00 [facility] Systolic (mm Hg) 2014-06-23 15:51:00 [facility] Diastolic (mm Hg) 2014-06-23 15:51:00 [facility] BMI Calculated 2014-06-23 13:16:00 [facility] Height 2014-06-23 13:16:00 165.1 cm [facility] Temperature Oral (F) 2014-06-23 13:16:00 98.2 F [facility] Weight 2014-06-23 13:16:00 [facility] Rate 2014-06-08 01:09:00 [facility] Respitory Rate 2014-06-08 01:09:00 [facility] Systolic (mm Hg) 2014-06-08 01:09:00 [facility] Diastolic (mm Hg) 2014-06-08 01:09:00 [facility] Rate 2014-06-08 00:19:00 [facility] Systolic (mm Hg) 2014-06-08 00:19:00 [facility] Diastolic (mm Hg) 2014-06-08 00:19:00 [facility] Respitory Rate 2014-06-08 00:19:00 [facility] Rate 2014-06-07 23:49:00 [facility] Respitory Rate 2014-06-07 23:49:00 [facility] Systolic (mm Hg) 2014-06-07 23:49:00 [facility] Diastolic (mm Hg) 2014-06-07 23:49:00 [facility] Height 2014-06-07 21:09:00 162.56 cm [facility] BMI Calculated 2014-06-07 21:09:00 [facility] Weight 2014-06-07 21:09:00 [facility] Respitory Rate 2014-06-02 15:08:00 [facility] Systolic (mm Hg) 2014-06-02 15:08:00 [facility] Diastolic (mm Hg) 2014-06-02 15:08:00 [facility] Heart Rate 2014-06-02 15:08:00 [facility] Heart Rate 2014-06-02 14:45:00 [facility] Respitory Rate 2014-06-02 14:45:00 [facility] Systolic (mm Hg) 2014-06-02 14:45:00 [facility] Diastolic (mm Hg) 2014-06-02 14:45:00 [facility] Weight 2014-06-02 14:45:00 [facility] BMI Calculated 2014-06-02 14:45:00 [facility] Height 2014-06-02 14:45:00 167.64 cm [facility] Respitory Rate 2014-05-10 02:41:00 [facility] Diastolic (mm Hg) 2014-05-10 02:41:00 [facility] Systolic (mm Hg) 2014-05-10 02:41:00 [facility] Rate 2014-05-10 02:41:00 [facility] Temperature Oral (F) 2014-05-10 02:41:00 97.8 F [facility] Diastolic (mm Hg) 2014-05-10 01:37:00 [facility] Temperature Oral (F) 2014-05-10 01:37:00 97.4 F [facility] Rate 2014-05-10 01:37:00 [facility] Respitory Rate 2014-05-10 01:37:00 [facility] Systolic (mm Hg) 2014-05-10 01:37:00 [facility] Temperature Oral (F) 2014-05-09 23:38:00 98.0 F [facility] Respitory Rate 2014-05-09 23:38:00 [facility] Rate 2014-05-09 23:38:00 [facility] Diastolic (mm Hg) 2014-05-09 23:38:00 [facility] Systolic (mm Hg) 2014-05-09 23:38:00 [facility] BMI Calculated 2014-05-09 23:38:00 [facility] Weight 2014-05-09 23:38:00 [facility] Height 2014-05-09 23:38:00 172.72 cm [facility] Systolic (mm Hg) 2014-04-17 22:23:00 [facility] Rate 2014-04-17 22:23:00 [facility] Diastolic (mm Hg) 2014-04-17 22:23:00 [facility] Respitory Rate 2014-04-17 22:23:00 [facility] Systolic (mm Hg) 2014-04-17 21:45:00 [facility] Diastolic (mm Hg) 2014-04-17 21:45:00 [facility] Rate 2014-04-17 21:45:00 [facility] Respitory Rate 2014-04-17 21:45:00 [facility] Systolic (mm Hg) 2014-04-17 21:05:00 [facility] Diastolic (mm Hg) 2014-04-17 21:05:00 [facility] Rate 2014-04-17 21:05:00 [facility] Respitory Rate 2014-04-17 21:05:00 [facility] Temperature Oral (F) 2014-04-17 19:24:00 98.4 F [facility] Weight 2014-04-17 19:24:00 [facility] Height 2014-04-17 19:24:00 162.56 cm [facility] BMI Calculated 2014-04-17 19:24:00 [facility] Weight 2014-03-06 23:38:00 [facility] Height 2014-03-06 23:38:00 175.26 cm [facility] BMI Calculated 2014-03-06 23:38:00 [facility] Diastolic (mm Hg) 2014-03-06 23:38:00 [facility] Respitory Rate 2014-03-06 23:38:00 [facility] Rate 2014-03-06 23:38:00 [facility] Systolic (mm Hg) 2014-03-06 23:38:00 [facility] Rate 2014-02-21 00:57:00 [facility] Respitory Rate 2014-02-21 00:57:00 [facility] Diastolic (mm Hg) 2014-02-21 00:57:00 [facility] Systolic (mm Hg) 2014-02-21 00:57:00 [facility] Weight 2014-02-20 23:14:00 [facility] Height 2014-02-20 23:14:00 167.64 cm [facility] BMI Calculated 2014-02-20 23:14:00 [facility] Respitory Rate 2014-02-20 23:14:00 [facility] Heart Rate 2014-02-20 23:14:00 [facility] Systolic (mm Hg) 2014-02-20 23:14:00 [facility] Diastolic (mm Hg) 2014-02-20 23:14:00 [facility] Temperature Oral (F) 2014-02-07 22:30:00 97.1 F [facility] Rate 2014-02-07 22:30:00 [facility] Systolic (mm Hg) 2014-02-07 22:30:00 [facility] Diastolic (mm Hg) 2014-02-07 22:30:00 [facility] Respitory Rate 2014-02-07 22:30:00 [facility] BMI Calculated 2014-02-07 21:22:00 [facility] Weight 2014-02-07 21:22:00 [facility] Diastolic (mm Hg) 2014-02-07 21:22:00 [facility] Systolic (mm Hg) 2014-02-07 21:22:00 [facility] Temperature Oral (F) 2014-02-07 21:22:00 97.7 F [facility] Respitory Rate 2014-02-07 21:22:00 [facility] Height 2014-02-07 21:22:00 167.64 cm [facility] Rate 2014-02-07 21:22:00 [facility] Weight 2014-01-25 22:58:00 [facility] BMI Calculated 2014-01-25 22:58:00 [facility] Height 2014-01-25 22:58:00 162.56 cm [facility] Respitory Rate 2014-01-25 22:58:00 [facility] Temperature Oral (F) 2014-01-25 22:58:00 96.9 F [facility] Rate 2014-01-25 22:58:00 [facility] Systolic (mm Hg) 2014-01-25 22:58:00 [facility] Diastolic (mm Hg) 2014-01-25 22:58:00 [facility] Diastolic (mm Hg) 2014-01-05 17:05:00 [facility] Systolic (mm Hg) 2014-01-05 17:05:00 [facility] Heart Rate 2014-01-05 17:05:00 [facility] Respitory Rate 2014-01-05 17:05:00 [facility] 2014-01-05 16:30:00 [facility] Systolic (mm Hg) 2014-01-05 16:30:00 [facility] Respitory Rate 2014-01-05 16:30:00 [facility] Diastolic (mm Hg) 2014-01-05 16:30:00 [facility] Diastolic (mm Hg) 2014-01-05 15:30:00 [facility] Respitory Rate 2014-01-05 15:30:00 [facility] Systolic (mm Hg) 2014-01-05 15:30:00 [facility] Rate 2014-01-05 15:30:00 [facility] Height 2014-01-05 14:02:00 170.18 cm [facility] BMI Calculated 2014-01-05 14:02:00 [facility] Weight 2014-01-05 14:02:00 [facility] Temperature Oral (F) 2014-01-05 14:02:00 98.3 F [facility] Respitory Rate 2013-11-24 18:00:00 [facility] Rate 2013-11-24 18:00:00 [facility] Diastolic (mm Hg) 2013-11-24 18:00:00 [facility] Systolic (mm Hg) 2013-11-24 18:00:00 [facility] Height 2013-11-24 17:24:00 170.18 cm [facility] BMI Calculated 2013-11-24 17:24:00 [facility] Weight 2013-11-24 17:24:00 [facility] Respitory Rate 2013-11-24 17:24:00 [facility] Temperature Oral (F) 2013-11-24 17:24:00 97.8 F [facility] Rate 2013-11-24 17:24:00 [facility] Diastolic (mm Hg) 2013-11-24 17:24:00 [facility] Systolic (mm Hg) 2013-11-24 17:24:00 [facility] Procedures Procedure Date / Time Performed Performing Clinician Source XR CHEST 2 VW 2024-06-04 20:44:29 [facility] 2024-06-04 20:44:29 [facility] POCT MOLECULAR FLU 2024-06-04 20:42:00 Unknown, Attend [facility] POCT MOLECULAR FLU 2024-06-04 20:42:00 Unknown, Attend [facility] POCT MOLECULAR COVID 2024-06-04 20:31:00 [facility] 2024-06-04 20:31:00 Unknown, Attjolene [facility] POCT MOLECULAR FLU 2024-05-23 17:47:00 Unknown, Attend [facility] POCT MOLECULAR FLU 2024-05-23 17:47:00 Unknown, Attend [facility] XR ANKLE <3 VW LEFT 2024-03-08 [facility] 2024-03-08 19:32:11 Bethany [facility] XR TIBIA FIBULA 2 VW LEFT 2024-03-08 19:32:11 Lucy Melara [facility] XR FOOT <3 VW LEFT 2024-03-08 19:32:11 Lucy Melara [facility] XR ANKLE <3 VW LEFT 2024-03-08 19:32:11 Lucy Melara [facility] XR TIBIA FIBULA 2 VW LEFT 2024-03-08 19:32:11 Lucy Melara [facility] COMP. METABOLIC PANEL ([id number]) 2023-12-31 22:24:00 Sharif Kathleen [facility] CBC WITH DIFF 2023-12-31 22:24:00 [facility]-31 22:24:00 Sharif Kathleen [facility] URINALYSIS 2023-12-31 22:24:00 Sharif Kathleen [facility] CBC WITH DIFF 2023-12-31 22:24:00 Sharif Kathleen [facility] COMP. METABOLIC PANEL ([id number]) 2023-12-31 22:24:00 Sharif Kathleen [facility] CT CERVICAL SPINE WO CONTRAST 2023-12-31 22:21:[address] [facility]AST 2023-12-31 22:21:[address] [facility] SP[facility] WO CONTRAST 2023-12-31 22:21:[address] [facility]AST 2023-12-31 22:21:34 Amy Kathleenshua [facility] ENDOSCOPY PROCEDURE DOCUMENTATION 2023-12-04 16:14:29 Doctor Unassigned, [place] [facility] ENDOSCOPY PROCEDURE DOCUMENTATION 2023-12-04 16:14:29 Doctor Unassigned, [place] [facility] COLONOSCOPY (ENDO) 2023-12-03 17:12:16 Vianey Sands [facility] COLONOSCOPY (ENDO) 2023-12-03 17:12:16 Vianey Sands [facility] COLONOSCOPY (ENDO) 2023-12-03 17:12:16 Vianey Snads [facility] COLONOSCOPY 2023-12-03 16:18[facility]23-12-03 16:18:00 Corinne Balbuena [facility] FL UPPER GI SERIES 2023-10-19 19:30:19 Jo Gillis [facility] FL UPPER GI SERIES 2023-10-19 19:30:19 Jo Gillis [facility] ENDOSCOPY PROCEDURE DOCUMENTATION 2023-09-11 17:51:41 Doctor Unassigned, [place] [facility] ENDOSCOPY PROCEDURE DOCUMENTATION 2023-09-11 17:51:41 Doctor Unassigned, [place] [facility] COLONOSCOPY (ENDO) 2023-09-10 16:20:22 Vianey Sands [facility] COLONOSCOPY (ENDO) 2023-09-10 16:20:22 Vianey Sands [facility] COLONOSCOPY (ENDO) 2023-09-10 16:20:22 Vianey Sands [facility] SURGICAL PATHOLOGY EXAM 2023-09-10 15:53:00 Martha Childs [facility] SURGICAL PATHOLOGY EXAM 2023-09-10 15:53:00 Martha Childs [facility] COLONOSCOPY 2023-09-10 15:26:00 Timbo Childs [facility] COLONOSCOPY 2023-09-10 15:26:00 Timbo Childs [facility] COLONOSCOPY 2023-09-10 15:26:00 Timbo Childs [facility] REFERRAL- REQUEST/RESPONSE 2023-08-27 14:48:54 D octor Unassigned, [place] [facility] REFERRAL- REQUEST/RESPONSE 2023-08-27 14:48:54 D octor Unassigned, [place] [facility] CT SHOULDER LEFT WO CONTRAST 2023-07-26 23:01:03 Murali Corado [facility] CT SHOULDER LEFT WO CONTRAST 2023-07-26 23:01:03 Murali Corado [facility] XR SHOULDER <2 VW LEFT 2023-07-26 20:52:00 Murali Corado [facility] XR SHOULDER <2 VW LEFT 2023-07-26 20:52:00 Murali Corado [facility] PATIENT FINANCIAL POLICY 2023-06-29 18:41:21 Doctor Unassigned, [place] [facility] SEDIMENTATION RATE 2023-06-02 23:13:00 Carlos Choi [facility] SEDIMENTATION RATE 2023-06-02 23:13:00 Carlos Choi [facility] CT ABDOMEN PELVIS W CONTRAST 2023-06-02 22:57:00 Mason Choi [facility] CT ABDOMEN PELVIS W CONTRAST 2023-06-02 22:57:00 Mason Choi [facility] LIPASE 2023-06-02 21:55:00 Mason Choi [facility] COMP. METABOLIC PANEL ([id number]) 2023-06-02 21:55:00 Mason Choi [facility] CBC WITH DIFF 2023-06-02 21:55:00 Maosn Choi [facility] URINALYSIS 2023-06-02 21:55:00 Mason Choi [facility] CBC WITH DIFF 2023-06-02 21:55:00 Mason Choi [facility] COMP. METABOLIC PANEL ([id number]) 2023-06-02 21:55:00 Mason Choi [facility] LIPASE 2023-06-02 21:55:00 Jimbo [facility] URINALYSIS 2023-06-02 21:55:00 Jimbo [facility] HIGH SENSITIVITY CRP 2023-06-02 21:55:00 Jimbo, [facility] CELIAC SCREEN 2023-06-02 21:55:00 Mason Choi [facility] LAB ONLY CELIAC SCREEN IGA 2023-06-02 21:55:00 Mason Driver [facility] ASSIGNMENT OF BENEFITS 2023-06-02 21:32:33 Docto r Unassigned, [place] [facility] ASSIGNMENT OF BENEFITS 2023-06-02 21:32:33 Docto r Unassigned, [place] [facility] CONSENT/REFUSAL FOR DIAGNOSIS AND TREATMENT 2023-06-02 20:49:15 Doctor Unassigned, [place] [facility] CONSENT/REFUSAL FOR DIAGNOSIS AND TREATMENT 2023-06-02 20:49:15 Doctor Unassigned, [place] [facility] EMERGENCY SERVICES AGREEMENTS AND AUTHORIZATIONS 2023-06-02 06:01:00 Doctor Unassigned, [place] [facility] CBC WITH DIFF 2023-05-13 15:47:00 Casandra Duron [facility] CELIAC SCREEN 2023-05-13 15:47:00 [facility] COMP. METABOLIC PANEL ([id number]) 2023-05-13 15:47:00 Casandra Duron [facility] C-REACTIVE PROTEIN 2023-05-13 15:47:00 Casandra Duron [facility] THYROID STIMULATING HORMONE 2023-05-13 15:47:00 Casandra Duron [facility] LAB ONLY CELIAC SCREEN IGA 2023-05-13 15:47:00 Casandra Duron [facility] CONSENT TO CONTACT FOR VOLUNTARY RESEARCH 2023-04-02 21:41:40 Doctor Unassigned, [place] [facility] CONSENT TO CONTACT FOR VOLUNTARY RESEARCH 2023-04-02 21:41:40 Doctor Unassigned, [place] [facility] XR KNEE 3 VW LEFT 2023-03-18 00:07:53 Carmella [facility] XR KNEE 3 VW LEFT 2023-03-18 00:07:53 Carmella [facility] REFERRAL- REQUEST/RESPONSE 2023-02-13 06:01:00 D octor Unassigned, [place] [facility] REFERRAL- REQUEST/RESPONSE 2023-02-13 06:01:00 D octor Unassigned, [place] [facility] MR KNEE LEFT WO CONTRAST 2023-02-06 23:25:15 Tim Pinto [facility] MR KNEE LEFT WO CONTRAST 2023-02-06 23:25:15 Tim Pinto [facility] ASSIGNMENT OF BENEFITS 2023-02-06 21:53:30 Docto r Unassigned, [place] [facility] CONSENT/REFUSAL FOR DIAGNOSIS AND TREATMENT 2023-02-06 21:53:14 Doctor Unassigned, [place] [facility] CONSENT/REFUSAL FOR DIAGNOSIS AND TREATMENT 2023-02-06 21:53:14 Doctor Unassigned, [place] [facility] DISCLOSURE AND CONSENT, MEDICAL AND SURGICAL PROCEDURES 2023-01-23 05:01:00 Doctor Unassigned, [place] [facility] URINALYSIS 2022-12-16 06:49[facility]AST 2022-12-16 05:02:03 Iva Hong [facility] LIPASE 2022-12-16 04:57:00 Iva Hong [facility] COMP. METABOLIC PANEL ([id number]) 2022-12-16 04:57:00 Iva Hong [facility] CBC WITH DIFF 2022-12-16 04:57:00 [facility] CBC WITH DIFF 2022-12-16 04:57:00 [facility] COMP. METABOLIC PANEL ([id number]) 2022-12-16 04:57:00 Iva Hong [facility] LIPASE 2022-12-16 04:57:00 Iva Hong [facility] CONSENT/REFUSAL FOR DIAGNOSIS AND TREATMENT 2022-12-16 04:02:07 Doctor Unassigned, [place] [facility] CONSENT/REFUSAL FOR DIAGNOSIS AND TREATMENT 2022-12-16 04:02:07 Doctor Unassigned, [place] [facility] EMERGENCY SERVICES AGREEMENTS AND AUTHORIZATIONS 2022-12-15 05:01:00 Doctor Unassigned, [place] [facility] POCT SARS-COV-2 ANTIGEN (BINAX NOW) 2022-11-27 01:00:00 Gabriela Paez [facility] POCT SARS-COV-2 ANTIGEN (BINAX NOW) 2022-11-27 01:00:00 Gabriela Paez [facility] DISCLOSURE AND CONSENT, MEDICAL AND SURGICAL PROCEDURES 2022-11-03 05:01:00 Doctor Unassigned, [place] [facility] MR FUNCTIONAL BRAIN WITH PHYSICIAN ADMINISTRATION 2022-10-31 19:34:42 Joel Billings Leti [facility] MR FUNCTIONAL BRAIN WITH PHYSICIAN ADMINISTRATION 2022-10-31 19:34:42 Joel Billings [facility] MR FUNCTIONAL BRAIN WITH PHYSICIAN ADMINISTRATION 2022-10-28 20:05:15 Joel Billings [facility] MR FUNCTIONAL BRAIN WITH PHYSICIAN ADMINISTRATION 2022-10-28 20:05:15 Joel Billings [facility] HOSPITAL ADMISSION 2022-10-28 05:01:00 Doctor Un assigned, [place] [facility] POCT SARS-COV-2 ANTIGEN (BINAX NOW) 2022-09-30 00:16:00 Caron Tobin [facility] POCT SARS-COV-2 ANTIGEN (BINAX NOW) 2022-09-30 00:16:00 Caron Tobin [facility] COVID-19 (MOLECULAR TESTING NUCLEIC ACID AMPLIFICATION) 2022-09-29 23:40:00 Caron Tobin [facility] LAB ONLY COVID INTERPRETATION 2022-09-29 23:40:00 [facility] [facility] CONSENT/REFUSAL FOR DIAGNOSIS AND TREATMENT 2022-09-29 18:07:52 Doctor Unassigned, [place] [facility] ASSIGNMENT OF BENEFITS 2022-09-29 18:07:30 Docto r Unassigned, [place] [facility] ASSIGNMENT OF BENEFITS 2022-09-29 18:07:30 Docto r Unassigned, [place] [facility] DISCLOSURE AND CONSENT, MEDICAL AND SURGICAL PROCEDURES 2022-09-29 05:01:00 Doctor Unassigned, [place] [facility] INSURANCE CORRESPONDENCE 2022-08-26 05:01:00 Doc tor Unassigned, [place] [facility] INSURANCE CORRESPONDENCE 2022-08-26 05:01:00 Doc tor Unassigned, [place] [facility] DISCLOSURE AND CONSENT, MEDICAL AND SURGICAL PROCEDURES 2022-07-28 05:01:00 Doctor Unassigned, [place] [facility] DISCLOSURE AND CONSENT, MEDICAL AND SURGICAL PROCEDURES 2022-07-28 05:01:00 Doctor Unassigned, [place] [facility] SEDATION USAGE RECORD 2022-07-28 05:01:00 Doctor Unassigned, [place] [facility] NOTICE OF PRIVACY PRACTICES 2022-05-15 01:52:32 Doctor Unassigned, [place] [facility] NOTICE OF PRIVACY PRACTICES 2022-05-15 01:52:32 Doctor Unassigned, [place] [facility] CONSENT/REFUSAL FOR DIAGNOSIS AND TREATMENT 2022-05-15 01:51:34 Doctor Unassigned, [place] [facility] CONSENT/REFUSAL FOR DIAGNOSIS AND TREATMENT 2022-05-15 01:51:34 Doctor Unassigned, [place] [facility] AGREEMENTS AUTHORIZATIONS AND IRREVOCABLE ASSIGNMENTS (FORM 2001) 2022-05-14 06:01:00 Doctor Unassigned, [place] [facility] SEDATION USAGE RECORD 2022-04-28 06:01:00 Doctor Unassigned, [place] [facility] DISCLOSURE AND CONSENT, MEDICAL AND SURGICAL PROCEDURES 2022-04-28 06:01:00 Doctor Unassigned, [place] [facility] SEDATION USAGE RECORD 2022-04-28 06:01:00 Doctor Unassigned, [place] [facility] MR FOOT RIGHT WO CONTRAST 2022-02-20 23:02:12 Vasiliy Silva [facility] MR FOOT RIGHT WO CONTRAST 2022-02-20 23:02:12 Vasiliy Silva [facility] DISCLOSURE AND CONSENT, MEDICAL AND SURGICAL PROCEDURES 2022-02-17 06:01:00 Doctor Unassigned, [place] [facility] DISCLOSURE AND CONSENT, MEDICAL AND SURGICAL PROCEDURES 2022-02-17 06:01:00 Doctor Unassigned, [place] [facility] SEDATION USAGE RECORD 2022-02-17 06:01:00 Doctor Unassigned, [place] [facility] EKG-12 LEAD 2022-02-07 19:14:36 [facility] URINALYSIS 2022-02-07 17:03:00 [facility] URINALYSIS 2022-02-07 17:03:00 [facility] URINE DRUG (LCMSMS) - COMPREHENSIVE DRUG PANEL 2022-02-07 17:03:00 Vasiliy Frye [facility] XR CHEST 1 VW 2022-02-07 16:34:00 Josue Velasquez [facility] XR CHEST 1 VW 2022-02-07 16:34:00 Josue Velasquez [facility] PROTHROMBIN TIME / INR 2022-02-07 16:20:00 Logan Velasquez [facility] ACTIVATED PARTIAL THRMPLAS KELLE 2022-02-07 16:20:00 Josue Velasquez [facility] EXTRA TUBE LAV 2022-02-07 16:20:00 Josue Velasquez [facility] EXTRA TUBE ORANGE 2022-02-07 16:20:00 [facility] PROTHROMBIN TIME / INR 2022-02-07 16:20:00 Logan Velasquez [facility] ACTIVATED PARTIAL THRMPLAS KELLE 2022-02-07 16:20:00 [facility] EXTRA TUBE ORANGE 2022-02-07 16:20:00 [facility] EXTRA TUBE LAV 2022-02-07 16:20:00 Romero [facility] HB ECG ROUTINE & RHYTHM STRIP 2022-02-07 16:07:[address] [facility] [facility] [address] STROKE HEAD WO CONTRAST 2022-02-07 16:03:[address] [facility] [address] STROKE ANGIOGRAM HEAD 2022-02-07 16:03:[address] [facility] [address] STROKE ANGIOGRAM NECK 2022-02-07 16:03:[address] [facility] [address] STROKE HEAD WO CONTRAST 2022-02-07 16:03:[address] [facility] [address] STROKE ANGIOGRAM HEAD 2022-02-07 16:03:[address] [facility] [address] STROKE ANGIOGRAM NECK 2022-02-07 16:03:25 [facility] TEST, SERUM 2022-02-07 15:49:00 Susan Velasquez [facility] TROPONIN I 2022-02-07 15:49:00 [facility] BASIC METABOLIC PANEL (NA, K, CL, CO2, GLUCOSE, BUN, CREATININE, CA) 2022-02-07 15:49:00 [facility] CBC WITHOUT DIFF 2022-02-07 15:49:00 [facility] CBC WITHOUT DIFF 2022-02-07 15:49:00 [facility] TROPONIN I 2022-02-07 15:49:00 [facility] BASIC METABOLIC PANEL (NA, K, CL, CO2, GLUCOSE, BUN, CREATININE, CA) 2022-02-07 15:49:00 Josue Velasquez [facility] TEST, SERUM 2022-02-07 15:49:00 Susan Velasquez [facility] POCT GLUCOSE (AUTOMATED) 2022-02-07 15:30:00 Doc ramo Unassigned, [place] [facility] POCT GLUCOSE (AUTOMATED) 2022-02-07 15:30:00 Doc tor Unassigned, [place] [facility] CRITICAL CARE 2022-02-07 15:26:00 Josue Velasquez [facility] CRITICAL CARE 2022-02-07 15:26:00 Josue Velasquez [facility] EMERGENCY DEPARTMENT DOCUMENTS 2022-02-07 05:01:00 Doctor Unassigned, [place] [facility] EMERGENCY SERVICES AGREEMENTS AND AUTHORIZATIONS 2022-02-07 05:01:00 Doctor Unassigned, [place] [facility] XR HEEL 2+ VW RIGHT 2022-01-07 23:34:00 Vasiliy Sullivan [facility] XR HEEL 2+ VW RIGHT 2022-01-07 23:34:00 Vasiliy Sullivan [facility] URINE CULTURE 2022-01-07 23:10:00 [facility] POCT URINALYSIS 2022-01-07 23:04:00 [facility] 2022-01-07 23:04:00 [facility] MOLECULAR STREP 2021-12-11 01:43:00 Gabriela Paez [facility] COVID-19 (MOLECULAR TESTING NUCLEIC ACID AMPLIFICATION) 2021-12-11 01:41:00 [facility] GALV ONLY - INFLUENZA A B RSV PCR 2021-12-11 01:41:00 Kacy [facility] LAB ONLY COVID INTERPRETATION 2021-12-11 01:41:00 Brenda Woodruff [facility] CT ANGIOGRAM HEAD 2021-12-08 03:17:20 Fredo Pandey [facility] CT HEAD WO CONTRAST 2021-12-08 02:04:41 Nico Pandey [facility] POCT TEST 2021-12-08 01:45:00 Nico Pandey [facility] CBC WITH DIFF 2021-12-08 01:39:00 Fredo Pandey [facility] ACTIVATED PARTIAL THRMPLAS KELLE 2021-12-08 01:39:00 Fredo Pandey [facility] PROTHROMBIN TIME / INR 2021-12-08 01:39:00 Marvin Pandey [facility] URINALYSIS 2021-12-08 01:39:00 Fredo Pandey [facility] COMP. METABOLIC PANEL (71876) 2021-12-08 01:39:00 Fredo Pandey [facility] COVID-19 (ID NOW RAPID TESTING) 2021-12-08 01:39:00 Fredo Pandey [facility] TEST, SERUM 2021-12-08 01:39:00 Sohan Pandey [facility] LAB ONLY COVID INTERPRETATION 2021-12-08 01:39:00 rFedo Pandey [facility] NOTICE OF PRIVACY PRACTICES 2021-12-08 00:26:52 Doctor Unassigned, [place] [facility] CONSENT/REFUSAL FOR DIAGNOSIS AND TREATMENT 2021-12-08 00:24:30 Doctor Unassigned, [place] [facility] EMERGENCY SERVICES AGREEMENTS AND AUTHORIZATIONS 2021-12-07 05:01:00 Doctor Unassigned, [place] [facility] DISCLOSURE AND CONSENT, MEDICAL AND SURGICAL PROCEDURES 2021-09-30 05:01:00 Doctor Unassigned, [place] [facility] SEDATION USAGE RECORD 2021-09-30 05:01:00 Doctor Unassigned, [place] [facility] COVID-19 (ID NOW RAPID TESTING) 2021-09-28 16:27:00 Timi Gastelum [facility] XR HAND 3+ VW LEFT 2021-09-17 14:26:56 Vasiliy Frye [facility] NOTICE OF PRIVACY PRACTICES 2021-09-17 14:13:00 Doctor Unassigned, [place] [facility] CONSENT/REFUSAL FOR DIAGNOSIS AND TREATMENT 2021-09-17 14:12:19 Doctor Unassigned, [place] [facility] ASSIGNMENT OF BENEFITS 2021-09-17 14:12:09 Docto r Unassigned, [place] [facility] CONSENT/REFUSAL FOR DIAGNOSIS AND TREATMENT 2021-09-17 13:08:38 Doctor Unassigned, [place] [facility] ASSIGNMENT OF BENEFITS 2021-09-17 13:07:49 Docto r Unassigned, [place] [facility] HCV ANTIBODY 2021-02-14 19:49:00 AnastacioHerbieosman Uni [facility] BI DIAGNOSTIC TOMOSYNTHESIS BILATERAL 2020-09-26 18:43:45 Carmella Melanie [facility] Post Op Promis 29 Survey 2020-07-11 00:00:00 [facility] Post Op Promis 29 Survey 2020-06-14 00:00:00 [facility] MR Knee wo contrast [id number] 2020-02-17 00:00:00 [facility] Post Op Promis 29 Survey 2020-01-04 00:00:00 [facility] MR Knee wo contrast [id number] 2019-06-06 00:00:00 [facility] MR Knee wo contrast bilat [id number] 2019-05-27 00:00:00 [facility] XRAY Knee 3 Views Bilateral [id number] 2019-04-05 00:00:00 [facility] Arthroscopy of knee 2015-06-11 06:00:00 [facility] Hysterectomy<sup>2</sup> Mem orial [place] Thyroidectomy<sup>3</sup> Me morial Rodrigo Hand [facility] Jeferson n Hand repair<sup>1</sup> Herb rial [place] Cholecystectomy [facility] Her benavides Shoulder [facility] Jeferson n Nerve block [facility] Jeferson n Cervical spinal fusion Memor ial [place] Back fusion [facility] Jeferson n Knee replacement [facility] rmann History of Hand [facility] of [facility]ste[facility] History of Biliary Assess Gallbladder Laparoscopy Aborted For Open Proc [facility] History of Cervical Vertebral Fusion [facility] Encounters Start Date/Time End Date/Time Encounter Type Admission Type Attending Clinicians Care Facility Care Department Encounter ID Source 2023-11-19 15:40:23 Outpatient R BERNICE BLANCO [facility] [id number] [facility] 2023-09-14 10:57:19 Outpatient R TIMBO CHILDS [facility] [id number] [facility] 2021-02-19 10:48:14 Outpatient FRANCISCO JAVIER FUENTES [facility] JANICE [id number] [facility] 2021-02-04 10:33:13 Emergency [facility] [id number] [facility] 2021-02-04 00:54:35 Emergency [facility] [id number] [facility] 2021-02-02 21:35:51 Emergency [facility] [id number] [facility] 2021-02-02 02:50:41 Outpatient R TIMI GASTELUM [facility] DSU [id number] [facility] 2021-02-01 08:07:43 Outpatient R TIMI GASTELUM [facility] VLS [id number] [facility] 2021-02-01 02:41:42 Outpatient TIMI GASTELUM [facility] [id number] [facility] 2021-01-31 19:39:23 Outpatient ORIANA TIMI [facility] [id number] [facility] 2025-01-12 00:00:00 2025-01-12 14:59:31 Harmeet Hurst [facility] ([facility]) ..840.114 350.1.13.10 4.2.7.2.686 [id number] [facility] 2024-11-28 00:00:00 2024-12-31 18:24:38 Patient Secure Msg Doctor Unassigned, [place] Doctor Unassigned, [place] [facility] .840.114 350.1.13.10 4.2.7.2.686 [id number] [facility] 2024-12-21 00:00:00 2024-12-21 00:00:00 Patient Secure Msg Timi Gastelum 1..840.1 24323.1.1 3.104.2.7 .3.843707 .8 [id number] [facility] 2024-12-06 08:47:12 2024-12-06 23:59:00 Outpatient Connie TIMI GASTELUM [facility] [id number] [facility] 2024-12-06 09:30:00 2024-12-06 10:00:00 Office Visit Timi Louis [facility] 1.2.840.114 350.1.13.10 4.2.7.2.686 [id number] [facility] 2024-12-06 00:00:00 2024-12-06 00:00:00 Travel 1.2.840.1 62756.1.1 3.104.2.7 .3.072569 .8 1.2.840.114 350.1.13.10 4.2.7.3.698 084.8 [id number] [facility] 2024-11-28 00:00:00 2024-11-28 15:29:24 Telephone Timi Gastelum 1.2.840.1 86771.1.1 3.104.2.7 .3.382923 .8 [id number] [facility] 2024-11-25 00:00:00 2024-11-25 17:08:29 Refill Timi Gastelum 1.2.840.1 47014.1.1 3.104.2.7 .3.638176 .8 [id number] [facility] 2024-11-23 00:00:00 2024-11-24 13:40:07 Telephone Timi Gastelum 1.2.840.1 95282.1.1 3.104.2.7 .3.208601 .8 [id number] [facility] 2024-11-24 07:45:00 2024-11-24 08:31:45 Outpatient CARLA MACHUCA PAUL [facility] [id number] [facility] 2024-11-24 00:00:00 2024-11-24 00:00:00 Travel 1.2.840.1 82903.1.1 3.104.2.7 .3.117457 .8 1.2.840.114 350.1.13.10 4.2.7.3.698 084.8 [id number] [facility] 2024-11-16 14:45:00 2024-11-16 15:00:00 Office Visit R Timi Gastelum 1.2.840.1 01384.1.1 3.104.2.7 .3.133064 .8 [id number] [facility] 2024-11-16 00:00:00 2024-11-16 00:00:00 Travel 1.2.840.1 98678.1.1 3.104.2.7 .3.831069 .8 1.2.840.114 350.1.13.10 4.2.7.3.698 084.8 [id number] [facility] 2024-11-11 15:45:00 2024-11-11 15:45:00 Outpatient GLADYS ISSA [facility] [id number] [facility] 2024-11-11 00:00:00 2024-11-11 00:00:00 Travel 1.2.840.1 92040.1.1 3.104.2.7 .3.167792 .8 1.2.840.114 350.1.13.10 4.2.7.3.698 084.8 [id number] [facility] 2024-10-21 00:00:00 2024-10-21 13:42:47 Telephone Timi Gastelum 1.2.840.1 63211.1.1 3.104.2.7 .3.091297 .8 [id number] [facility] 2024-09-21 14:30:00 2024-09-21 14:30:00 Outpatient TIMI LOUIS [facility] [id number] [facility] 2024-08-19 07:45:00 2024-08-19 08:55:28 Outpatient ILIANA GUEVARA [facility] [id number] [facility] 2024-08-19 07:45:00 2024-08-19 07:45:00 Outpatient ILIANA GUEVARA [facility] [id number] [facility] 2024-08-19 00:00:00 2024-08-19 00:00:00 Travel 1.2.840.1 09514.1.1 3.104.2.7 .3.142088 .8 1.2.840.114 350.1.13.10 4.2.7.3.698 084.8 [id number] [facility] 2017-09-19 00:00:00 2024-07-28 22:22:23 Vasiliy Valentin [facility] 1.2.840.114 350.1.13.10 4.2.7.2.686 [id number] [facility] 2017-10-24 00:00:00 2024-07-28 22:21:12 Vasiliy Valentin [facility] 1.2.840.114 350.1.13.10 4.2.7.2.686 [id number] [facility] 2018-11-28 00:00:00 2024-07-28 22:06:57 Timi Nazario [facility] 1.2.840.114 350.1.13.10 4.2.7.2.686 [id number] [facility] 2020-01-11 00:00:00 2024-07-28 21:53:44 Chica Valentinzabeth A [facility] 1.2.840.114 350.1.13.10 4.2.7.2.686 [id number] [facility] 2020-03-12 00:00:00 2024-07-28 21:51:39 Letter (Out) Inpt, Clc Phys Therapy Inpt, Clc Phys Therapy [facility] 1.2.840.114 350.1.13.10 4.2.7.2.686 [id number] [facility] 2021-01-06 00:00:00 2024-07-28 21:43:42 Feliciano Del AngelamilloVasiliy [facility] 1.2.840.114 350.1.13.10 4.2.7.2.686 [id number] [facility] 2024-07-05 13:15:00 2024-07-05 13:30:00 Office Visit Uzma Irizarry 1.2.840.1 28939.1.1 3.104.2.7 .3.098447 .8 [id number] [facility] 2024-07-01 00:00:00 2024-07-02 18:40:38 Refill Caron Tobin 1.2.840.1 95979.1.1 3.104.2.7 .3.206750 .8 [id number] [facility] 2024-06-27 13:30:00 2024-06-27 14:00:00 Office Visit Timi Gastelum 1.2.840.1 30853.1.1 3.104.2.7 .3.283200 .8 [id number] [facility] 2024-06-27 13:30:00 2024-06-27 13:30:00 Outpatient R TIMI GASTELUM [facility] [id number] [facility] 2024-06-27 00:00:00 2024-06-27 00:00:00 Travel 1.2.840.1 60956.1.1 3.104.2.7 .3.369709 .8 1.2.840.114 350.1.13.10 4.2.7.3.698 084.8 [id number] [facility] 2024-06-24 00:00:00 2024-06-24 11:26:54 Telephone Timi Gastelum 1.2.840.1 37977.1.1 3.104.2.7 .3.200854 .8 [id number] [facility] 2024-06-20 00:00:00 2024-06-20 12:49:36 Telephone Timi Gastelum 1.2.840.1 33632.1.1 3.104.2.7 .3.081637 .8 [id number] [facility] 2024-06-05 00:00:00 2024-06-07 08:43:01 Patient Secure Msg Timi Gastelum 1.2.840.1 17526.1.1 3.104.2.7 .3.264952 .8 [id number] [facility] 2024-06-04 14:30:14 2024-06-04 23:59:00 Outpatient R CARON TOBIN [facility] [id number] [facility] 2024-06-04 14:30:14 2024-06-04 23:59:00 Hospital Encounter Caron Tobin 1.2.840.1 36173.1.1 3.104.2.7 .3.204076 .8 [id number] [facility] 2024-06-04 13:40:00 2024-06-04 15:05:20 Urgent Care Unknown, Attending Caron Tobin 1.2.840.1 23668.1.1 3.104.2.7 .3.152472 .8 [id number] [facility] 2024-06-04 00:00:00 2024-06-04 00:00:00 Travel 1.2.840.1 86965.1.1 3.104.2.7 .3.887665 .8 1.2.840.114 350.1.13.10 4.2.7.3.698 084.8 [id number] [facility] 2024-06-01 14:30:00 2024-06-01 14:30:00 Outpatient R ABELARELITIMI [facility] [id number] [facility] 2024-05-31 00:00:00 2024-05-31 09:58:55 Telephone Timi Gastelum Hiro 1.2.840.1 08752.1.1 3.104.2.7 .3.910145 .8 [id number] [facility] 2024-05-26 00:00:00 2024-05-26 09:07:47 Telephone AbelTimi pressley Hiro 1.2.840.1 53207.1.1 3.104.2.7 .3.410857 .8 [id number] [facility] 2024-05-23 10:25:00 2024-05-23 12:18:55 Outpatient R GABRIELA PAEZ [facility] [id number] [facility] 2024-05-23 10:25:00 2024-05-23 12:18:55 Urgent Care Unknown, Attending Gabriela Paez 1.2.840.1 57160.1.1 3.104.2.7 .3.740027 .8 [id number] [facility] 2024-05-23 00:00:00 2024-05-23 00:00:00 Travel 1.2.840.1 77921.1.1 3.104.2.7 .3.464723 .8 1.2.840.114 350.1.13.10 4.2.7.3.698 084.8 [id number] [facility] 2023-08-27 00:00:00 2024-05-21 07:43:09 Orders Only Doctor Unassigned, [place] Doctor Unassigned, [place] [facility] 1.2.840.114 350.1.13.10 4.2.7.2.686 [id number] [facility] 2023-09-11 00:00:00 2024-05-21 07:34:10 Orders Only Doctor Unassigned, [place] Doctor Unassigned, [place] [facility] 1.2.840.114 350.1.13.10 4.2.7.2.686 [id number] [facility] 2023-12-04 00:00:00 2024-05-21 07:02:26 Orders Only Doctor Unassigned, [place] Doctor Unassigned, [place] [facility] 1.2.840.114 350.1.13.10 4.2.7.2.686 [id number] [facility] 2024-05-16 12:15:00 2024-05-16 12:40:25 Outpatient R TIMI GASTELUM [facility] [id number] [facility] 2024-05-16 12:15:00 2024-05-16 12:40:25 Office Visit Timi Gastelum 1.2.840.1 60777.1.1 3.104.2.7 .3.185576 .8 [id number] [facility] 2024-05-16 00:00:00 2024-05-16 00:00:00 Travel 1.2.840.1 58222.1.1 3.104.2.7 .3.764968 .8 1.2.840.114 350.1.13.10 4.2.7.3.698 084.8 [id number] [facility] 2024-05-13 15:00:00 2024-05-13 16:12:03 Outpatient R GLADYS MCCRAY [facility] [id number] [facility] 2024-05-13 00:00:00 2024-05-13 00:00:00 Travel 1.2.840.1 18420.1.1 3.104.2.7 .3.123216 .8 1.2.840.114 350.1.13.10 4.2.7.3.698 084.8 [id number] [facility] 2024-04-26 13:00:00 2024-04-26 13:00:00 Outpatient R TIMI GASTELUM [facility] [id number] [facility] 2024-03-14 00:00:00 2024-04-16 18:18:31 Patient Secure Msg Doctor Unassigned, [place] 1.2.840.1 83456.1.1 3.104.2.7 .3.485722 .8 [id number] [facility] 2024-04-15 00:00:00 2024-04-15 13:01:29 Telephone Timi Gastelum Hiro 1.2.840.1 28207.1.1 3.104.2.7 .3.324461 .8 [id number] [facility] 2024-04-07 11:30:00 2024-04-07 13:22:02 Office Visit Joss Yao [place] [facility] 1.2.840.114 350.1.13.58 9.2.7.2.686 [id number] [facility] 2024-02-29 00:00:00 2024-04-02 18:18:03 Patient Secure Msg Doctor Unassigned, [place] 1.2.840.1 67286.1.1 3.104.2.7 .3.726465 .8 [id number] [facility] 2024-03-31 08:00:00 2024-03-31 08:00:00 Outpatient R [facility] [id number] [facility] 2024-02-11 00:00:00 2024-03-19 18:23:28 Patient Secure Msg Doctor Unassigned, [place] 1.2.840.1 75425.1.1 3.104.2.7 .3.030474 .8 [id number] [facility] 2024-03-16 10:15:00 2024-03-16 11:42:23 Outpatient [facility] [id number] [facility] 2024-03-16 10:15:00 2024-03-16 11:42:23 Office Visit Esperanza Riojas [place] Physician [facility] 1.2.840.114 350.1.13.58 9.2.7.2.686 [id number] [facility] 2024-03-16 00:00:00 2024-03-16 11:32:10 Letter (Out) 1.2.840.1 26664.1.1 3.104.2.7 .3.351095 .8 [id number] [facility] 2024-03-16 09:30:00 2024-03-16 09:30:00 Outpatient RAVEN JIMENEZ [facility] [id number] [facility] 2024-03-15 00:00:00 2024-03-16 08:09:38 Patient Secure Msg Michele Zimmer 1.2.840.1 41927.1.1 3.104.2.7 .3.522206 .8 [id number] [facility] 2024-03-16 00:00:00 2024-03-16 00:00:00 Outpatient [facility] [id number] [facility] 2024-03-14 16:00:00 2024-03-14 16:15:27 Outpatient R MICHELE ZIMMER JEENA [facility] [id number] [facility] 2024-03-14 16:00:00 2024-03-14 16:15:27 Office Visit Michele Zimmer 1.2.840.1 28282.1.1 3.104.2.7 .3.421113 .8 [id number] [facility] 2024-03-14 00:00:00 2024-03-14 10:11:38 Patient Secure Msg Doctor Unassigned, [place] 1.2.840.1 98757.1.1 3.104.2.7 .3.854533 .8 [id number] [facility] 2024-03-14 00:00:00 2024-03-14 00:00:00 Travel 1.2.840.1 64867.1.1 3.104.2.7 .3.568249 .8 1.2.840.114 350.1.13.10 4.2.7.3.698 084.8 [id number] [facility] 2024-03-08 12:27:00 2024-03-08 15:21:00 Emergency X LUCY MELARA [facility] ERT [id number] [facility] 2024-03-08 12:27:00 2024-03-08 15:21:00 Emergency ShonLucy zarco G 1.2.840.1 53783.1.1 3.104.2.7 .3.976838 .8 [id number] [facility] 2024-03-08 00:00:00 2024-03-08 00:00:00 Travel 1.2.840.1 31671.1.1 3.104.2.7 .3.674778 .8 1.2.840.114 350.1.13.10 4.2.7.3.698 084.8 [id number] [facility] 2024-03-01 00:00:00 2024-03-01 00:00:00 Outpatient JO BESS ASHLEY [facility] [id number] [facility] 2024-02-25 00:00:00 2024-02-25 14:12:33 Jo Krishnamurthy 1.2.840.1 36467.1.1 3.104.2.7 .3.327301 .8 [id number] [facility] 2024-02-15 14:30:00 2024-02-15 14:30:00 Outpatient Connie ABELARELITIMI [facility] [id number] [facility] 2024-02-15 14:30:00 2024-02-15 14:30:00 Outpatient Connie TIMI GASTELUM [facility] [id number] [facility] 2024-02-11 15:30:00 2024-02-11 15:45:00 Administrative Aide Visit Jo Gillis [facility] 1.2.840.1 15846.1.1 3.104.2.7 .3.662515 .8 [id number] [facility] 2024-02-11 15:00:00 2024-02-11 15:30:00 Office Visit Jo Gillis 1.2.840.1 30279.1.1 3.104.2.7 .3.013545 .8 [id number] [facility] 2024-02-11 15:00:00 2024-02-11 15:00:00 Outpatient JO BESS ASHLEY [facility] [id number] [facility] 2024-02-11 00:00:00 2024-02-11 00:00:00 Travel 1.2.840.1 66764.1.1 3.104.2.7 .3.196827 .8 1.2.840.114 350.1.13.10 4.2.7.3.698 084.8 [id number] [facility] 2024-01-04 00:00:00 2024-02-06 18:22:53 Patient Secure Msg Oriana Timi Bosch 1.2.840.1 14592.1.1 3.104.2.7 .3.520559 .8 [id number] [facility] 2024-02-02 00:00:00 2024-02-02 09:54:06 Telephone Timi Gastelum 1.2.840.1 74519.1.1 3.104.2.7 .3.519605 .8 [id number] [facility] 2024-02-02 00:00:00 2024-02-02 08:52:04 Telephone Timi Gastelum 1.2.840.1 47294.1.1 3.104.2.7 .3.917703 .8 [id number] [facility] 2024-02-01 14:30:00 2024-02-01 15:00:00 Office Visit Timi Gastelum [facility] 1.2.840.114 350.1.13.10 4.2.7.2.686 [id number] [facility] 2024-02-01 14:30:00 2024-02-01 14:30:00 Outpatient R TIMI GASTELUM [facility] [id number] [facility] 2024-02-01 00:00:00 2024-02-01 00:00:00 Travel 1.2.840.1 81829.1.1 3.104.2.7 .3.234556 .8 1.2.840.114 350.1.13.10 4.2.7.3.698 084.8 [id number] [facility] 2024-01-30 00:00:00 2024-01-30 00:00:00 Travel 1.2.840.1 47892.1.1 3.104.2.7 .3.367890 .8 1.2.840.114 350.1.13.10 4.2.7.3.698 084.8 [id number] [facility] 2024-01-25 00:00:00 2024-01-25 14:32:26 Telephone Timi Gastelum 1.2.840.1 56329.1.1 3.104.2.7 .3.683591 .8 [id number] [facility] 2023-12-17 00:00:00 2024-01-23 18:29:06 Patient Secure Msg Jo Gillis 1.2.840.1 97619.1.1 3.104.2.7 .3.057666 .8 [id number] [facility] 2024-01-04 14:00:00 2024-01-04 14:00:00 Outpatient R TIMI GASTELUM [facility] [id number] [facility] 2024-01-04 00:00:00 2024-01-04 10:57:14 Telephone Timi Gastelum 1.2.840.1 81484.1.1 3.104.2.7 .3.853989 .8 [id number] [facility] 2023-12-02 00:00:00 2024-01-02 18:20:42 Patient Secure Msg Doctor Unassigned, [place] 1.2.840.1 01026.1.1 3.104.2.7 .3.473784 .8 [id number] [facility] 2023-12-31 16:42:00 2023-12-31 19:18:00 Emergency X SHARIF KATHLEEN [facility] [id number] [facility] 2023-12-31 16:42:00 2023-12-31 19:18:00 Emergency Sharif Kathleen 1.2.840.1 85826.1.1 3.104.2.7 .3.303590 .8 [id number] [facility] 2023-12-31 00:00:00 2023-12-31 00:00:00 Travel 1.2.840.1 74845.1.1 3.104.2.7 .3.877455 .8 1.2.840.114 350.1.13.10 4.2.7.3.698 084.8 [id number] [facility] 2023-12-29 00:00:00 2023-12-29 12:14:57 Telephone Timi Gastelum 1.2.840.1 60921.1.1 3.104.2.7 .3.186201 .8 [id number] [facility] 2023-12-18 00:00:00 2023-12-21 10:34:41 Patient Secure Msg Timi Gastelum 1.2.840.1 55383.1.1 3.104.2.7 .3.198771 .8 [id number] [facility] 2023-12-17 15:15:00 2023-12-17 15:15:00 Office Visit Timi Gastelum 1.2.840.1 35843.1.1 3.104.2.7 .3.876901 .8 [id number] [facility] 2023-12-17 07:45:00 2023-12-17 08:27:08 Outpatient R DWIGHT [facility]ENCIA [facility] [id number] [facility] 2023-12-17 00:00:00 2023-12-17 00:00:00 Travel 1.2.840.1 44795.1.1 3.104.2.7 .3.569289 .8 1.2.840.114 350.1.13.10 4.2.7.3.698 084.8 [id number] [facility] 2023-12-16 00:00:00 2023-12-16 00:00:00 Travel 1.2.840.1 71370.1.1 3.104.2.7 .3.153492 .8 1.2.840.114 350.1.13.10 4.2.7.3.698 084.8 [id number] [facility] 2023-12-10 15:00:00 2023-12-10 15:30:00 Office Visit Jo Gillis T 1.2.840.1 67551.1.1 3.104.2.7 .3.592499 .8 [id number] [facility] 2023-12-10 15:00:00 2023-12-10 15:00:00 Outpatient R JO GILLIS ASHLEY [facility] [id number] [facility] 2023-12-10 00:00:00 2023-12-10 00:00:00 Travel 1.2.840.1 98974.1.1 3.104.2.7 .3.267631 .8 1.2.840.114 350.1.13.10 4.2.7.3.698 084.8 [id number] [facility] 2023-12-03 10:48:00 2023-12-03 13:14:00 Outpatient R [facility]NE [facility] [id number] [facility] 2023-12-03 10:48:00 2023-12-03 13:14:00 Hospital Encounter Corinne Balbuena 1.2.840.1 46266.1.1 3.104.2.7 .3.702521 .8 [id number] [facility] 2023-12-03 11:45:00 2023-12-03 12:30:00 Surgery Corinne Balbuena 1.2.840.1 93970.1.1 3.104.2.7 .3.911836 .8 [id number] [facility] 2023-12-03 00:00:00 2023-12-03 12:11:10 Prep For Surgery Corinne Balbuena 1.2.840.1 37844.1.1 3.104.2.7 .3.094236 .8 [id number] [facility] 2023-12-03 11:28:00 2023-12-03 11:59:00 Anesthesia Event Dexter Wesley James Hayden 1.2.840.1 99990.1.1 3.104.2.7 .3.499644 .8 [id number] [facility] 2023-12-03 00:00:00 2023-12-03 00:00:00 Travel 1.2.840.1 34699.1.1 3.104.2.7 .3.077928 .8 1.2.840.114 350.1.13.10 4.2.7.3.698 084.8 [id number] [facility] 2023-11-23 00:00:00 2023-11-23 16:51:21 Telephone Tim Pinto 1.2.840.1 90146.1.1 3.104.2.7 .3.398264 .8 [id number] [facility] 2023-11-23 00:00:00 2023-11-23 15:54:50 Telephone Bernice Blanco 1.2.840.1 04216.1.1 3.104.2.7 .3.361046 .8 [id number] [facility] 2023-11-20 23:59:59 2023-11-20 23:59:59 Anesthesia Event Johanny Dietz 1.2.840.1 20204.1.1 3.104.2.7 .3.793647 .8 [id number] [facility] 2023-11-05 00:00:00 2023-11-05 08:37:31 Telephone Timi Gastelum 1.2.840.1 13642.1.1 3.104.2.7 .3.800077 .8 [id number] [facility] 2023-11-04 13:38:46 2023-11-04 23:59:00 Outpatient R TIMI GASTELUM [facility] [id number] [facility] 2023-11-04 13:00:00 2023-11-04 13:30:00 Office Visit Timi Gastelum 1.2.840.1 72894.1.1 3.104.2.7 .3.660954 .8 [id number] [facility] 2023-11-04 00:00:00 2023-11-04 00:00:00 Travel 1.2.840.1 17618.1.1 3.104.2.7 .3.103099 .8 1.2.840.114 350.1.13.10 4.2.7.3.698 084.8 [id number] [facility] 2023-10-29 00:00:00 2023-10-29 08:56:56 Telephone Timi Gastelum Hiro 1.2.840.1 83014.1.1 3.104.2.7 .3.315287 .8 [id number] [facility] 2023-10-22 14:56:52 2023-10-22 23:59:00 Hospital Encounter Mariposa De León [facility] 1.2.840.114 350.1.13.10 4.2.7.2.686 [id number] [facility] 2023-10-22 00:00:00 2023-10-22 23:59:00 Outpatient MARIPOSA CHU [facility] [id number] [facility] 2023-10-19 13:00:00 2023-10-19 23:59:00 Outpatient R JO GILLIS ASHLEY [facility] [id number] [facility] 2023-10-19 13:00:00 2023-10-19 23:59:00 Hospital Encounter Jo Gillis 1.2.840.1 86118.1.1 3.104.2.7 .3.006558 .8 [id number] [facility] 2023-10-11 00:00:00 2023-10-19 11:14:53 Patient Secure Msg Timi Gastelum Hiro 1.2.840.1 84481.1.1 3.104.2.7 .3.375017 .8 [id number] [facility] 2023-09-14 00:00:00 2023-10-17 18:20:58 Patient Secure Msg Doctor Unassigned, [place] 1.2.840.1 18753.1.1 3.104.2.7 .3.576333 .8 [id number] [facility] 2023-10-15 10:30:00 2023-10-15 10:45:00 Administrative Aide Visit Jo Gillis [facility] 1.2.840.1 86887.1.1 3.104.2.7 .3.280744 .8 [id number] [facility] 2023-10-15 08:30:00 2023-10-15 09:00:00 Office Visit Jo Gillis 1.2.840.1 79586.1.1 3.104.2.7 .3.492465 .8 [id number] [facility] 2023-10-15 08:30:00 2023-10-15 08:30:00 Outpatient R JO GILLIS ASHLEY [facility] [id number] [facility] 2023-10-15 00:00:00 2023-10-15 00:00:00 Travel 1.2.840.1 05738.1.1 3.104.2.7 .3.225623 .8 1.2.840.114 350.1.13.10 4.2.7.3.698 084.8 [id number] [facility] 2023-10-12 11:00:00 2023-10-12 11:00:00 Outpatient R JO GILLIS ASHLEY [facility] [id number] [facility] 2023-09-07 00:00:00 2023-10-10 18:23:47 Patient Secure Msg Doctor Unassigned, [place] 1.2.840.1 19105.1.1 3.104.2.7 .3.934016 .8 [id number] [facility] 2023-10-07 12:30:00 2023-10-07 12:30:00 Outpatient JO BESS ASHLEY [facility] [id number] [facility] 2023-09-28 09:10:00 2023-09-28 15:49:00 Outpatient STARLA RAWLS [facility] [id number] [address] [place] [address] 2023-09-18 00:00:00 2023-09-18 15:30:07 Telephone ChildsTimbo 1.2.840.1 58654.1.1 3.104.2.7 .3.818699 .8 [id number] [facility] 2023-09-17 00:00:00 2023-09-17 12:36:19 Telephone Agustina Maldonado 1.2.840.1 13474.1.1 3.104.2.7 .3.472925 .8 [id number] [facility] 2023-09-17 12:32:56 2023-09-17 12:32:56 Anesthesia Event MaryjaneDexter rachel 1.2.840.1 96606.1.1 3.104.2.7 .3.668256 .8 [id number] [facility] 2023-09-17 00:00:00 2023-09-17 00:00:00 Travel 1.2.840.1 52661.1.1 3.104.2.7 .3.796833 .8 1.2.840.114 350.1.13.10 4.2.7.3.698 084.8 [id number] [facility] 2023-09-16 00:00:00 2023-09-16 09:40:41 Telephone Jo Gillis 1.2.840.1 83987.1.1 3.104.2.7 .3.035412 .8 [id number] [facility] 2023-09-15 15:00:00 2023-09-15 15:45:00 Ancillary Visit Jony Nascimento Elba Malone 1.2.840.1 94929.1.1 3.104.2.7 .3.966521 .8 [id number] [facility] 2023-09-15 15:00:00 2023-09-15 15:00:00 Outpatient R JONY NASCIMENTO CRAIG [facility] [id number] [facility] 2023-09-14 00:00:00 2023-09-14 00:00:00 Outpatient R MARIPOSA DE LEÓN [facility] [id number] [facility] 2023-09-14 00:00:00 2023-09-14 00:00:00 Prep For Surgery Childs, Jose 1.2.840.1 72222.1.1 3.104.2.7 .3.385713 .8 [id number] [facility] 2023-09-10 08:49:00 2023-09-10 14:00:00 Outpatient R CHILDS TIMBO [facility] GIE [id number] [facility] 2023-09-10 08:49:00 2023-09-10 14:00:00 Hospital Encounter ChildsTimbo bello 1.2.840.1 69994.1.1 3.104.2.7 .3.178005 .8 [id number] [facility] 2023-09-10 10:37:00 2023-09-10 11:14:00 Anesthesia Event Dexter Wesley Stacey L 1.2.840.1 83575.1.1 3.104.2.7 .3.618027 .8 [id number] [facility] 2023-09-10 09:45:00 2023-09-10 10:30:00 Surgery Childs, Jose 1.2.840.1 28586.1.1 3.104.2.7 .3.213615 .8 [id number] [facility] 2023-09-10 00:00:00 2023-09-10 00:00:00 Travel 1.2.840.1 30280.1.1 3.104.2.7 .3.839238 .8 1.2.840.114 350.1.13.10 4.2.7.3.698 084.8 [id number] [facility] 2023-08-30 15:00:00 2023-08-30 15:37:06 Outpatient R AUGUSTO SOLIS [facility] [id number] [facility] 2023-08-30 15:00:00 2023-08-30 15:37:06 Urgent Care Thom Mejia Unknown, Attending Augusto Solis 1.2.840.1 59142.1.1 3.104.2.7 .3.132968 .8 [id number] [facility] 2023-08-30 00:00:00 2023-08-30 00:00:00 Travel 1.2.840.1 19270.1.1 3.104.2.7 .3.912025 .8 1.2.840.114 350.1.13.10 4.2.7.3.698 084.8 [id number] [facility] 2023-07-23 00:00:00 2023-08-29 18:12:36 Patient Secure Msg Casandra Duron 1.2.840.1 39895.1.1 3.104.2.7 .3.715266 .8 [id number] [facility] 2023-08-24 00:00:00 2023-08-25 08:44:23 Telephone Vianey Sands 1.2.840.1 47960.1.1 3.104.2.7 .3.916373 .8 [id number] [facility] 2023-07-16 00:00:00 2023-08-22 18:12:05 Patient Secure Msg Timi Gastelum 1.2.840.1 79902.1.1 3.104.2.7 .3.678045 .8 [id number] [facility] 2023-08-19 00:00:00 2023-08-20 09:34:59 Refill Timi Gastelum 1.2.840.1 05350.1.1 3.104.2.7 .3.529652 .8 [id number] [facility] 2023-08-19 00:00:00 2023-08-19 09:19:33 Telephone Timi Gastelum 1.2.840.1 34646.1.1 3.104.2.7 .3.854230 .8 [id number] [facility] 2023-08-18 13:00:00 2023-08-18 13:30:00 Office Visit Timi Gastelum 1.2.840.1 41930.1.1 3.104.2.7 .3.719544 .8 [id number] [facility] 2023-08-18 13:00:00 2023-08-18 13:00:00 Outpatient R TIMI GASTELUM [facility] [id number] [facility] 2023-08-18 00:00:00 2023-08-18 00:00:00 Travel 1.2.840.1 57723.1.1 3.104.2.7 .3.314022 .8 1.2.840.114 350.1.13.10 4.2.7.3.698 084.8 [id number] [facility] 2023-08-13 00:00:00 2023-08-13 08:44:31 Telephone Timi Gastelum 1.2.840.1 67216.1.1 3.104.2.7 .3.030019 .8 [id number] [facility] 2023-08-07 15:15:00 2023-08-07 15:55:56 Outpatient R ORIANA TIMI [facility] [id number] [facility] 2023-08-07 15:15:00 2023-08-07 15:55:56 Office Visit Timi Gastelum 1.2.840.1 63983.1.1 3.104.2.7 .3.517891 .8 [id number] [facility] 2023-08-07 00:00:00 2023-08-07 00:00:00 Travel 1.2.840.1 62202.1.1 3.104.2.7 .3.168896 .8 1.2.840.114 350.1.13.10 4.2.7.3.698 084.8 [id number] [facility] 2023-08-06 10:15:00 2023-08-06 10:15:00 Outpatient R TIMI GASTELUM [facility] [id number] [facility] 2023-07-31 00:00:00 2023-07-31 12:32:35 Letter (Out) 1.2.840.1 33116.1.1 3.104.2.7 .3.771871 .8 [id number] [facility] 2023-07-30 16:00:00 2023-07-30 16:18:34 Outpatient R VIANEY SANDS [facility] [id number] [facility] 2023-07-30 16:00:00 2023-07-30 16:18:34 Office Visit Vianey Sands 1.2.840.1 30455.1.1 3.104.2.7 .3.613146 .8 [id number] [facility] 2023-07-30 00:00:00 2023-07-30 00:00:00 Travel 1.2.840.1 75398.1.1 3.104.2.7 .3.200626 .8 1.2.840.114 350.1.13.10 4.2.7.3.698 084.8 [id number] [facility] 2023-07-27 14:30:00 2023-07-27 14:30:00 Outpatient R TIMI GASTELUM [facility] [id number] [facility] 2023-07-26 15:08:00 2023-07-26 20:36:00 Emergency X MURALI CORADO [facility] ERT [id number] [facility] 2023-07-26 15:08:00 2023-07-26 20:36:00 Emergency Murali Corado 1.2.840.1 99441.1.1 3.104.2.7 .3.756966 .8 [id number] [facility] 2023-07-26 00:00:00 2023-07-26 00:00:00 Travel 1.2.840.1 59152.1.1 3.104.2.7 .3.602706 .8 1.2.840.114 350.1.13.10 4.2.7.3.698 084.8 [id number] [facility] 2023-07-08 13:00:00 2023-07-08 13:30:00 Office Visit Casandra Duron 1.2.840.1 08719.1.1 3.104.2.7 .3.879987 .8 [id number] [facility] 2023-07-08 13:00:00 2023-07-08 13:00:00 Outpatient R CASANDRA DURON LAUREN [facility] [id number] [facility] 2023-07-08 00:00:00 2023-07-08 00:00:00 Travel 1.2.840.1 57210.1.1 3.104.2.7 .3.705957 .8 1.2.840.114 350.1.13.10 4.2.7.3.698 084.8 [id number] [facility] 2023-07-07 00:00:00 2023-07-07 00:00:00 Travel 1.2.840.1 33835.1.1 3.104.2.7 .3.074985 .8 1.2.840.114 350.1.13.10 4.2.7.3.698 084.8 [id number] [facility] 2023-06-30 00:00:00 2023-07-01 07:51:53 Telephone Timi Gastelum Hiro 1.2.840.1 66116.1.1 3.104.2.7 .3.458713 .8 [id number] [facility] 2023-06-29 14:22:05 2023-06-29 23:59:00 Outpatient R ABELARELITIMI [facility] [id number] [facility] 2023-06-29 14:22:05 2023-06-29 23:59:00 Hospital Encounter Timi Gastelum Hiro 1.2.840.1 01941.1.1 3.104.2.7 .3.459368 .8 [id number] [facility] 2023-06-29 14:30:00 2023-06-29 15:00:00 Office Visit Timi Gastelum Hiro 1.2.840.1 58189.1.1 3.104.2.7 .3.498103 .8 [id number] [facility] 2023-06-29 00:00:00 2023-06-29 13:41:25 Orders Only Doctor Unassigned, [place] 1.2.840.1 69214.1.1 3.104.2.7 .3.673607 .8 [id number] [facility] 2023-06-29 00:00:00 2023-06-29 08:02:24 Telephone Timi Gastelum Hiro 1.2.840.1 91698.1.1 3.104.2.7 .3.859880 .8 [id number] [facility] 2023-06-29 00:00:00 2023-06-29 00:00:00 Travel 1.2.840.1 86429.1.1 3.104.2.7 .3.627783 .8 1.2.840.114 350.1.13.10 4.2.7.3.698 084.8 [id number] [facility] 2023-06-25 00:00:00 2023-06-25 08:49:07 Telephone Timi Gasteluml 1.2.840.1 30088.1.1 3.104.2.7 .3.558323 .8 [id number] [facility] 2023-06-11 00:00:00 2023-06-15 14:47:43 Telephone Casandra Duron 1.2.840.1 34887.1.1 3.104.2.7 .3.006582 .8 [id number] [facility] 2023-06-12 08:30:00 2023-06-12 08:57:46 Outpatient Connie COLEARELI TIMI [facility] [id number] [facility] 2023-06-12 08:30:00 2023-06-12 08:57:46 Telemedici ne Visit Timi Gastelum Hiro 1.2.840.1 18497.1.1 3.104.2.7 .3.122665 .8 [id number] [facility] 2023-06-08 11:00:00 2023-06-08 11:00:00 Outpatient CASANDRA LIM LAUREN [facility] [id number] [facility] 2023-06-02 15:11:00 2023-06-02 18:56:00 Emergency X MASON CHOI [facility] ERT [id number] [facility] 2023-06-02 15:11:00 2023-06-02 18:56:00 Emergency Mason Choi 1.2.840.1 14072.1.1 3.104.2.7 .3.867336 .8 [id number] [facility] 2023-06-02 00:00:00 2023-06-02 00:00:00 Travel 1.2.840.1 19966.1.1 3.104.2.7 .3.457736 .8 1.2.840.114 350.1.13.10 4.2.7.3.698 084.8 [id number] [facility] 2023-05-30 00:00:00 2023-05-30 00:00:00 Patient Secure Msg Timi Gastelum 1.2.840.1 23954.1.1 3.104.2.7 .3.062826 .8 [id number] [facility] 2023-05-29 00:00:00 2023-05-29 00:00:00 Telephone Casandra Duron 1.2.840.1 14265.1.1 3.104.2.7 .3.795593 .8 [id number] [facility] 2023-05-26 00:00:00 2023-05-26 00:00:00 RefMelanie Ash 1.2.840.1 01347.1.1 3.104.2.7 .3.843592 .8 [id number] [facility] 2023-05-20 00:00:00 2023-05-20 00:00:00 Patient Secure Msg Casandra Duron 1.2.840.1 82495.1.1 3.104.2.7 .3.528826 .8 [id number] [facility] 2023-05-13 09:45:00 2023-05-13 10:00:00 Administrative Aide Visit Casandra Duron [facility] 1.2.840.1 78823.1.1 3.104.2.7 .3.121302 .8 [id number] [facility] 2023-05-13 09:00:00 2023-05-13 09:30:00 Office Visit Casandra Duron 1.2.840.1 95788.1.1 3.104.2.7 .3.351639 .8 [id number] [facility] 2023-05-13 09:00:00 2023-05-13 09:00:00 Outpatient CASANDRA LIM LAUREN [facility] [id number] [facility] 2023-05-13 00:00:00 2023-05-13 00:00:00 Travel 1.2.840.1 31115.1.1 3.104.2.7 .3.947648 .8 1.2.840.114 350.1.13.10 4.2.7.3.698 084.8 [id number] [facility] 2023-04-16 00:00:00 2023-04-16 00:00:00 RefMelanie Ash 1.2.840.1 06396.1.1 3.104.2.7 .3.574486 .8 [id number] [facility] 2023-04-15 14:15:00 2023-04-15 14:15:00 Outpatient RIKY BARRIENTOS [facility] [id number] [facility] 2023-04-09 05:38:00 2023-04-09 10:27:00 Outpatient RAVEN JIMENEZ [facility] [id number] [facility] 2023-04-09 07:30:00 2023-04-09 07:30:00 Outpatient RAVEN JIMENEZ [facility] [id number] [facility] 2023-04-02 15:45:00 2023-04-02 16:14:42 Outpatient ILIANA GOOD [facility] [id number] [facility] 2023-04-02 00:00:00 2023-04-02 00:00:00 Orders Only Doctor Unassigned, [place] 1.2.840.1 52824.1.1 3.104.2.7 .3.804167 .8 [id number] [facility] 2023-04-02 00:00:00 2023-04-02 00:00:00 Travel 1.2.840.1 61017.1.1 3.104.2.7 .3.906427 .8 1.2.840.114 350.1.13.10 4.2.7.3.698 084.8 [id number] [facility] 2023-04-01 14:00:00 2023-04-01 14:00:00 Outpatient EVELIO LEWIS [facility] [id number] [facility] 2023-03-27 08:45:00 2023-03-27 10:06:10 Office Visit RAVEN JIMENEZ [place] [facility] 1.2.840.114 350.1.13.58 9.2.7.2.686 [id number] [facility] 2023-03-25 14:30:00 2023-03-25 14:30:00 Outpatient TIMI LOUIS [facility] [id number] [facility] 2023-03-20 00:00:00 2023-03-20 00:00:00 Patient Secure Msg Doctor Unassigned, [place] 1.2.840.1 94367.1.1 3.104.2.7 .3.578392 .8 [id number] [facility] 2023-03-18 11:30:00 2023-03-18 11:30:00 Outpatient LEDA FRANCOIS JR [facility] [id number] [facility] 2023-03-17 17:50:16 2023-03-17 23:59:00 Outpatient MELANIE STRAUSS [facility] [id number] [facility] 2023-03-17 17:50:16 2023-03-17 23:59:00 Hospital Encounter Melanie Barrera 1.2.840.1 21117.1.1 3.104.2.7 .3.744343 .8 [id number] [facility] 2023-03-17 17:20:00 2023-03-17 17:52:23 Urgent Care Unknown, Attending Charu Barreracy 1.2.840.1 08371.1.1 3.104.2.7 .3.588334 .8 [id number] [facility] 2023-03-17 00:00:00 2023-03-17 00:00:00 Travel 1.2.840.1 79127.1.1 3.104.2.7 .3.355970 .8 1.2.840.114 350.1.13.10 4.2.7.3.698 084.8 [id number] [facility] 2023-03-14 00:00:00 2023-03-14 00:00:00 Telephone Tim Pinto 1.2.840.1 13713.1.1 3.104.2.7 .3.911796 .8 [id number] [facility] 2023-03-13 11:00:00 2023-03-13 11:00:00 Outpatient [facility] [id number] [facility] 2023-03-11 13:45:00 2023-03-11 13:45:00 Outpatient RIKY BARRIENTOS [facility] [id number] [facility] 2023-03-10 00:00:00 2023-03-10 00:00:00 Telephone Tim Pinto 1.2.840.1 30928.1.1 3.104.2.7 .3.553821 .8 [id number] [facility] 2023-03-10 00:00:00 2023-03-10 00:00:00 Patient Secure Msg Tim Pinto 1.2.840.1 77853.1.1 3.104.2.7 .3.391732 .8 [id number] [facility] 2023-03-02 11:00:00 2023-03-02 11:00:00 Outpatient CORNELIA BALDWIN [facility] [id number] [facility] 2023-02-23 13:20:00 2023-02-23 13:20:00 Outpatient R OBI-RADHA , [place] OBI-RADHA , [place] [id number] [facility] 2023-02-22 00:00:00 2023-02-22 00:00:00 Telephone Tim Pinto 1.2.840.1 01247.1.1 3.104.2.7 .3.294214 .8 [id number] [facility] 2023-02-18 00:00:00 2023-02-18 00:00:00 Patient Secure Msg Tim Pinto 1.2.840.1 34464.1.1 3.104.2.7 .3.194058 .8 [id number] [facility] 2023-02-17 00:00:00 2023-02-17 00:00:00 Patient Secure Msg Doctor Unassigned, [place] 1.2.840.1 14691.1.1 3.104.2.7 .3.869912 .8 [id number] [facility] 2023-02-16 00:00:00 2023-02-16 00:00:00 Pre Visit Outreach Lenny, Rocío L 1.2.840.1 02039.1.1 3.104.2.7 .3.452366 .8 [id number] [facility] 2023-02-16 00:00:00 2023-02-16 00:00:00 Patient Secure Msg Tim Pinto 1.2.840.1 59469.1.1 3.104.2.7 .3.694457 .8 [id number] [facility] 2023-02-13 07:20:00 2023-02-13 10:14:19 Outpatient [facility] [id number] [facility] 2023-02-13 07:15:00 2023-02-13 10:14:19 Outpatient [facility] [id number] [facility] 2023-02-13 07:00:00 2023-02-13 10:14:19 Office Visit Riky Barrientos [place] [facility] 1..840.114 350.1.13.58 9.2.7.2.686 [id number] 1 [id number] [facility] 2023-02-13 00:00:00 2023-02-13 00:00:00 Telephone Tim Pinto 1.2.840.1 43377.1.1 3.104.2.7 .3.172171 .8 [id number] [facility] 2023-02-13 00:00:00 2023-02-13 00:00:00 Orders Only Doctor Unassigned, [place] 1.2.840.1 15783.1.1 3.104.2.7 .3.580945 .8 [id number] [facility] 2023-02-07 00:00:00 2023-02-07 00:00:00 Patient Secure Msg Doctor Unassigned, [place] 1.2.840.1 12353.1.1 3.104.2.7 .3.742997 .8 [id number] [facility] 2023-02-06 16:54:21 2023-02-06 23:59:00 Outpatient R TIM PINTO [facility] [id number] [facility] 2023-02-06 16:54:21 2023-02-06 23:59:00 Hospital Encounter Tim Pinto 1.2.840.1 30649.1.1 3.104.2.7 .3.357754 .8 [id number] [facility] 2023-02-06 09:00:00 2023-02-06 12:19:43 Outpatient [facility] [id number] [facility] 2023-02-06 08:45:00 2023-02-06 12:19:43 Office Visit RIKY BARRIENTOS [place] [facility] 1.2.840.114 350.1.13.58 9.2.7.2.686 [id number] 1 [id number] [facility] 2023-02-06 00:00:00 2023-02-06 00:00:00 Orders Only Doctor Unassigned, [place] 1.2.840.1 89886.1.1 3.104.2.7 .3.786941 .8 [id number] [facility] 2023-02-05 00:00:00 2023-02-05 00:00:00 Telephone Tim Pinto 1.2.840.1 84923.1.1 3.104.2.7 .3.062916 .8 [id number] [facility] 2023-02-04 00:00:00 2023-02-04 00:00:00 Telephone Tim Pinto 1.2.840.1 70411.1.1 3.104.2.7 .3.401399 .8 [id number] [facility] 2023-01-31 00:00:00 2023-01-31 00:00:00 Refill Timi Gastelum 1.2.840.1 99884.1.1 3.104.2.7 .3.620616 .8 [id number] [facility] 2023-01-30 08:00:00 2023-01-30 09:29:56 Outpatient R TIM PINTO [facility] [id number] [facility] 2023-01-30 08:00:00 2023-01-30 09:29:56 Office Visit Tim Pinto 1.2.840.1 98734.1.1 3.104.2.7 .3.921974 .8 [id number] [facility] 2023-01-30 00:00:00 2023-01-30 00:00:00 Patient Secure Msg Tim Pinto 1.2.840.1 77786.1.1 3.104.2.7 .3.747242 .8 [id number] [facility] 2023-01-30 00:00:00 2023-01-30 00:00:00 Travel 1.2.840.1 76502.1.1 3.104.2.7 .3.927648 .8 1.2.840.114 350.1.13.10 4.2.7.3.698 084.8 [id number] [facility] 2023-01-26 00:00:00 2023-01-26 00:00:00 Telephone Abelareli Timi Hiro 1.2.840.1 53099.1.1 3.104.2.7 .3.794161 .8 [id number] [facility] 2023-01-26 00:00:00 2023-01-26 00:00:00 Patient Secure Msg Tim Pinto 1.2.840.1 52863.1.1 3.104.2.7 .3.690601 .8 [id number] [facility] 2023-01-23 13:23:35 2023-01-23 23:59:00 Hospital Encounter Timi Gastelum 1.2.840.1 69265.1.1 3.104.2.7 .3.349177 .8 [id number] [facility] 2023-01-23 14:00:00 2023-01-23 14:30:00 Office Visit Timi Gastelum [facility] 1.2.840.114 350.1.13.10 4.2.7.2.686 [id number] [facility] 2023-01-23 14:00:00 2023-01-23 14:00:00 Outpatient R TIMI GASTELUM [facility] [id number] [facility] 2023-01-23 00:00:00 2023-01-23 00:00:00 Travel 1.2.840.1 06376.1.1 3.104.2.7 .3.044442 .8 1.2.840.114 350.1.13.10 4.2.7.3.698 084.8 [id number] [facility] 2023-01-21 00:00:00 2023-01-21 00:00:00 Telephone Timi Gasteluml 1.2.840.1 01968.1.1 3.104.2.7 .3.730042 .8 [id number] [facility] 2023-01-20 00:00:00 2023-01-20 00:00:00 Telephone Timi Gasteluml 1.2.840.1 69952.1.1 3.104.2.7 .3.454782 .8 [id number] [facility] 2023-01-06 00:00:00 2023-01-06 00:00:00 Errol Dunn 1.2.840.1 18890.1.1 3.104.2.7 .3.367744 .8 [id number] [facility] 2022-12-30 13:00:00 2022-12-30 13:09:37 Outpatient R TIMI GASTELUM [facility] [id number] [facility] 2022-12-30 13:00:00 2022-12-30 13:09:37 Office Visit Abelareli Timi Bosch 1.2.840.1 02233.1.1 3.104.2.7 .3.599534 .8 [id number] [facility] 2022-12-30 00:00:00 2022-12-30 00:00:00 Travel 1.2.840.1 06143.1.1 3.104.2.7 .3.095316 .8 1.2.840.114 350.1.13.10 4.2.7.3.698 084.8 [id number] [facility] 2022-12-15 23:32:00 2022-12-16 02:43:00 Emergency X IVA HONG [facility] ERT [id number] [facility] 2022-12-15 23:32:00 2022-12-16 02:43:00 Emergency Iva Hong 1.2.840.1 21788.1.1 3.104.2.7 .3.567845 .8 [id number] [facility] 2022-12-15 00:00:00 2022-12-15 00:00:00 Travel 1.2.840.1 87576.1.1 3.104.2.7 .3.387909 .8 1.2.840.114 350.1.13.10 4.2.7.3.698 084.8 [id number] [facility] 2022-12-12 00:00:00 2022-12-12 00:00:00 Patient Secure Timi Wright 1.2.840.1 89455.1.1 3.104.2.7 .3.274051 .8 [id number] [facility] 2022-11-26 19:40:00 2022-11-26 20:40:10 Urgent Care Gabriela Paez 1.2.840.1 33051.1.1 3.104.2.7 .3.770177 .8 [id number] [facility] 2022-11-26 19:40:00 2022-11-26 19:40:00 Outpatient R GABRIELA PAEZ [facility] [id number] [facility] 2022-11-26 00:00:00 2022-11-26 00:00:00 Travel 1.2.840.1 01723.1.1 3.104.2.7 .3.942271 .8 1.2.840.114 350.1.13.10 4.2.7.3.698 084.8 [id number] [facility] 2022-11-18 00:00:00 2022-11-18 00:00:00 Patient Secure Msg Doctor Unassigned, [place] 1.2.840.1 10473.1.1 3.104.2.7 .3.835968 .8 [id number] [facility] 2022-11-07 15:00:00 2022-11-07 17:02:31 Outpatient TARA MCKEON [facility] [id number] [facility] 2022-11-07 00:00:00 2022-11-07 00:00:00 Travel 1.2.840.1 50963.1.1 3.104.2.7 .3.563307 .8 1.2.840.114 350.1.13.10 4.2.7.3.698 084.8 [id number] [facility] 2022-11-05 00:00:00 2022-11-05 00:00:00 Patient Secure Msg Timi Gastelum 1.2.840.1 44469.1.1 3.104.2.7 .3.252639 .8 [id number] [facility] 2022-11-03 10:30:00 2022-11-03 11:00:00 Office Visit Timi Gastelum 1.2.840.1 38714.1.1 3.104.2.7 .3.126558 .8 [id number] [facility] 2022-11-03 10:30:00 2022-11-03 10:30:00 Outpatient R TIMI GASTELUM [facility] [id number] [facility] 2022-11-03 00:00:00 2022-11-03 00:00:00 Travel 1.2.840.1 72104.1.1 3.104.2.7 .3.299405 .8 1.2.840.114 350.1.13.10 4.2.7.3.698 084.8 [id number] [facility] 2022-11-02 00:00:00 2022-11-02 00:00:00 Refluiza CarmellaMelanie 1.2.840.1 52884.1.1 3.104.2.7 .3.576992 .8 [id number] [facility] 2022-10-28 08:47:00 2022-10-31 15:45:00 Inpatient U JOEL BILLINGS DENISE RUST [id number] [facility] 2022-10-28 08:47:00 2022-10-31 15:45:00 Hospital Encounter Jonathan Joel Leti 1.2.840.1 77645.1.1 3.104.2.7 .3.250288 .8 [id number] [facility] 2022-10-31 00:00:00 2022-10-31 00:00:00 Travel 1.2.840.1 50503.1.1 3.104.2.7 .3.083375 .8 1.2.840.114 350.1.13.10 4.2.7.3.698 084.8 [id number] [facility] 2022-10-30 00:00:00 2022-10-30 00:00:00 Avinashluiza JamelashleyMelanie barron 1.2.840.1 20472.1.1 3.104.2.7 .3.229313 .8 [id number] [facility] 2022-10-29 00:00:00 2022-10-29 00:00:00 Telephone Timi Gastelum 1.2.840.1 80210.1.1 3.104.2.7 .3.409272 .8 [id number] [facility] 2022-10-29 00:00:00 2022-10-29 00:00:00 Patient Secure Msg Doctor Unassigned, [place] 1.2.840.1 63093.1.1 3.104.2.7 .3.083243 .8 [id number] [facility] 2022-10-28 00:00:00 2022-10-28 00:00:00 Telephone Joel Billings 1.2.840.1 90587.1.1 3.104.2.7 .3.397205 .8 [id number] [facility] 2022-10-28 00:00:00 2022-10-28 00:00:00 Travel 1.2.840.1 98903.1.1 3.104.2.7 .3.717166 .8 1.2.840.114 350.1.13.10 4.2.7.3.698 084.8 [id number] [facility] 2022-10-22 00:00:00 2022-10-22 00:00:00 RefMelanie Ash 1.2.840.1 45947.1.1 3.104.2.7 .3.188552 .8 [id number] [facility] 2022-10-21 13:40:00 2022-10-21 13:40:00 Outpatient TIM ONTIVEROS [facility] [id number] [facility] 2022-10-08 20:40:00 2022-10-08 21:03:10 Urgent Care Melanie Barrera 1.2.840.1 00567.1.1 3.104.2.7 .3.982431 .8 [id number] [facility] 2022-10-08 20:40:00 2022-10-08 20:40:00 Outpatient MELANIE STRAUSS [facility] [id number] [facility] 2022-10-03 00:00:00 2022-10-03 00:00:00 Patient Secure Timi Wright [facility] 1.2.840.114 350.1.13.10 4.2.7.2.686 [id number] 011 [id number] [facility] 2022-10-02 14:00:00 2022-10-02 14:45:24 Outpatient R TIMI GASTELUM [facility] [id number] [facility] 2022-10-02 14:00:00 2022-10-02 14:45:24 Office Visit Timi Gastelum 1.2.840.1 68503.1.1 3.104.2.7 .3.443522 .8 [id number] [facility] 2022-10-02 00:00:00 2022-10-02 00:00:00 Travel 1.2.840.1 89185.1.1 3.104.2.7 .3.362411 .8 1.2.840.114 350.1.13.10 4.2.7.3.698 084.8 [id number] [facility] 2022-09-29 18:00:00 2022-09-29 19:03:23 Urgent Care Unknown, Attending Caron Tobin 1.2.840.1 79971.1.1 3.104.2.7 .3.097731 .8 [id number] [facility] 2022-09-29 14:00:00 2022-09-29 14:30:00 Office Visit Timi Gastelum 1.2.840.1 57642.1.1 3.104.2.7 .3.150087 .8 [id number] [facility] 2022-09-29 14:00:00 2022-09-29 14:00:00 Outpatient R TIMI GASTELUM [facility] [id number] [facility] 2022-09-29 00:00:00 2022-09-29 00:00:00 Telephone Timi Gasteluml 1.2.840.1 53518.1.1 3.104.2.7 .3.068549 .8 [id number] [facility] 2022-09-29 00:00:00 2022-09-29 00:00:00 Orders Only Doctor Unassigned, [place] 1.2.840.1 61226.1.1 3.104.2.7 .3.013732 .8 [id number] [facility] 2022-09-29 00:00:00 2022-09-29 00:00:00 Patient Secure Msg Timi Gastelum 1.2.840.1 96837.1.1 3.104.2.7 .3.704159 .8 [id number] [facility] 2022-09-29 00:00:00 2022-09-29 00:00:00 Travel 1.2.840.1 11261.1.1 3.104.2.7 .3.905678 .8 1.2.840.114 350.1.13.10 4.2.7.3.698 084.8 [id number] [facility] 2022-09-26 00:00:00 2022-09-26 00:00:00 RefTim Whitley 1.2.840.1 68642.1.1 3.104.2.7 .3.957645 .8 [id number] [facility] 2022-09-24 00:00:00 2022-09-24 00:00:00 Telephone Timi Gastelum 1.2.840.1 06832.1.1 3.104.2.7 .3.929488 .8 [id number] [facility] 2022-09-24 00:00:00 2022-09-24 00:00:00 Patient Secure Msg Doctor Unassigned, [place] [facility] 1.2.840.114 350.1.13.10 4.2.7.2.686 [id number] 011 [id number] [facility] 2022-09-22 00:00:00 2022-09-22 00:00:00 Patient Secure Msg Tim Pinto 1.2.840.1 50308.1.1 3.104.2.7 .3.029047 .8 [id number] [facility] 2022-09-19 00:00:00 2022-09-19 00:00:00 Errol Dunn 1.2.840.1 64010.1.1 3.104.2.7 .3.218003 .8 [id number] [facility] 2022-09-09 00:00:00 2022-09-09 00:00:00 Patient Secure Msg Timi Gasteluml 1.2.840.1 74359.1.1 3.104.2.7 .3.049645 .8 [id number] [facility] 2022-09-04 15:45:00 2022-09-04 16:40:44 Outpatient ILIANA GOOD [facility] [id number] [facility] 2022-09-04 14:00:00 2022-09-04 16:15:07 Office Visit AbelTimi pressley Hiro 1.2.840.1 00669.1.1 3.104.2.7 .3.897295 .8 [id number] [facility] 2022-09-04 00:00:00 2022-09-04 00:00:00 Travel 1.2.840.1 55000.1.1 3.104.2.7 .3.577924 .8 1.2.840.114 350.1.13.10 4.2.7.3.698 084.8 [id number] [facility] 2022-08-28 13:00:00 2022-08-28 13:00:00 Outpatient TIMI LOUIS [facility] [id number] [facility] 2022-08-26 00:00:00 2022-08-26 00:00:00 Orders Only Doctor Unassigned, [place] 1.2.840.1 02393.1.1 3.104.2.7 .3.852815 .8 [id number] [facility] 2022-08-14 00:00:00 2022-08-14 00:00:00 Patient Secure Msg Timi Gastelum [facility] 1.2.840.114 350.1.13.10 4.2.7.2.686 [id number] 011 [id number] [facility] 2022-08-01 15:45:00 2022-08-01 15:45:00 Outpatient TARA MCKEON [facility] [id number] [facility] 2022-07-28 13:30:00 2022-07-28 14:00:00 Office Visit Timi Gastelum 1.2.840.1 63286.1.1 3.104.2.7 .3.356008 .8 [id number] [facility] 2022-07-28 13:30:00 2022-07-28 13:30:00 Outpatient R TIMI GASTELUM [facility] [id number] [facility] 2022-07-28 00:00:00 2022-07-28 00:00:00 Orders Only Doctor Unassigned, [place] 1.2.840.1 99996.1.1 3.104.2.7 .3.888875 .8 [id number] [facility] 2022-07-28 00:00:00 2022-07-28 00:00:00 Travel 1.2.840.1 09873.1.1 3.104.2.7 .3.976253 .8 1.2.840.114 350.1.13.10 4.2.7.3.698 084.8 [id number] [facility] 2022-07-25 00:00:00 2022-07-25 00:00:00 Telephone Timi Gastelum 1.2.840.1 01863.1.1 3.104.2.7 .3.947361 .8 [id number] [facility] 2022-07-23 00:00:00 2022-07-23 00:00:00 Telephone Timi Gastelum 1.2.840.1 66104.1.1 3.104.2.7 .3.428830 .8 [id number] [facility] 2022-07-11 15:30:00 2022-07-11 16:42:54 Outpatient R ERROL VILLAGRAN OGECHUKWU [facility] [id number] [facility] 2022-07-11 15:30:00 2022-07-11 16:42:54 Office Visit Errol Villagran 1.2.840.1 26909.1.1 3.104.2.7 .3.328684 .8 [id number] [facility] 2022-07-11 00:00:00 2022-07-11 00:00:00 Travel 1.2.840.1 70975.1.1 3.104.2.7 .3.373621 .8 1.2.840.114 350.1.13.10 4.2.7.3.698 084.8 [id number] [facility] 2022-07-10 00:00:00 2022-07-10 00:00:00 Travel 1.2.840.1 56075.1.1 3.104.2.7 .3.386933 .8 1.2.840.114 350.1.13.10 4.2.7.3.698 084.8 [id number] [facility] 2022-07-07 08:15:00 2022-07-07 08:35:19 Outpatient R TIMI GASTELUM [facility] [id number] [facility] 2022-07-07 08:15:00 2022-07-07 08:35:19 Office Visit Timi Gastelum 1.2.840.1 70699.1.1 3.104.2.7 .3.187933 .8 [id number] [facility] 2022-07-04 00:00:00 2022-07-04 00:00:00 Telephone Oriana Timi Hiro 1.2.840.1 19560.1.1 3.104.2.7 .3.522432 .8 [id number] [facility] 2022-06-27 16:20:00 2022-06-27 16:20:00 Outpatient RAYMOND PFEIFFER CHRISTINE [facility] [id number] [facility] 2022-06-27 00:00:00 2022-06-27 00:00:00 Travel 1.2.840.1 64479.1.1 3.104.2.7 .3.063891 .8 1.2.840.114 350.1.13.10 4.2.7.3.698 084.8 [id number] [facility] 2022-06-25 00:00:00 2022-06-25 00:00:00 Melanie Fu 1.2.840.1 50111.1.1 3.104.2.7 .3.576774 .8 [id number] [facility] 2022-06-21 00:00:00 2022-06-21 00:00:00 Tim Henry 1.2.840.1 27397.1.1 3.104.2.7 .3.051505 .8 [id number] [facility] 2022-06-20 00:00:00 2022-06-20 00:00:00 Outpatient MELANIE STRAUSS [facility] [id number] [facility] 2022-06-17 14:00:00 2022-06-17 14:30:00 Office Visit Vianey Sands 1.2.840.1 55138.1.1 3.104.2.7 .3.905332 .8 [id number] [facility] 2022-06-17 14:00:00 2022-06-17 14:00:00 Outpatient VIANEY MCKEON [facility] [id number] [facility] 2022-06-16 00:00:00 2022-06-16 00:00:00 Travel 1.2.840.1 73780.1.1 3.104.2.7 .3.346656 .8 1.2.840.114 350.1.13.10 4.2.7.3.698 084.8 [id number] [facility] 2022-06-10 00:00:00 2022-06-10 00:00:00 Patient Secure [facility] 1.2.840.114 350.1.13.10 4.2.7.2.686 [id number] 011 [id number] [facility] 2022-06-09 00:00:00 2022-06-09 00:00:00 Telephone Tim Pinto 1.2.840.1 92261.1.1 3.104.2.7 .3.686156 .8 [id number] [facility] 2022-05-28 00:00:00 2022-05-28 00:00:00 Patient Secure Timi [facility] [place] [facility] 1.2840.114 350.1.13.10 4.2.7.2.686 [id number] 011 [id number] [facility] 2022-05-14 20:07:00 2022-05-14 22:41:00 Emergency X JAMIE BAHENA [facility] ERT [id number] [facility] 2022-05-14 20:07:00 2022-05-14 22:41:00 Emergency Jamie Bahena 1.2.840.1 43241.1.1 3.104.2.7 .3.699489 .8 [id number] [facility] 2022-05-14 00:00:00 2022-05-14 00:00:00 Travel 1.2.840.1 64012.1.1 3.104.2.7 .3.665646 .8 1.2.840.114 350.1.13.10 4.2.7.3.698 084.8 [id number] [facility] 2022-05-09 00:00:00 2022-05-09 00:00:00 Tim Henry 1.2.840.1 29904.1.1 3.104.2.7 .3.502037 .8 [id number] [facility] 2022-05-08 17:40:00 2022-05-08 18:03:46 Outpatient STARLA MALHOTRA III [facility] [id number] [facility] 2022-05-08 17:40:00 2022-05-08 18:03:46 Urgent Care Unknown, Attending Starla Hanson 1.2.840.1 09731.1.1 3.104.2.7 .3.478957 .8 [id number] [facility] 2022-05-08 00:00:00 2022-05-08 00:00:00 Letter (Out) Starla Hanson 1.2.840.1 35725.1.1 3.104.2.7 .3.855359 .8 [id number] [facility] 2022-05-08 00:00:00 2022-05-08 00:00:00 Travel 1.2.840.1 21563.1.1 3.104.2.7 .3.148893 .8 1.2.840.114 350.1.13.10 4.2.7.3.698 084.8 [id number] [facility] 2022-04-28 09:00:00 2022-04-28 10:54:25 Outpatient TIMI LOUIS [facility] [id number] [facility] 2022-04-28 09:00:00 2022-04-28 10:54:25 Office Visit Timi Gasteluml 1.2.840.1 64297.1.1 3.104.2.7 .3.076198 .8 [id number] [facility] 2022-04-28 00:00:00 2022-04-28 00:00:00 Orders Only Doctor Unassigned, [place] 1.2.840.1 68853.1.1 3.104.2.7 .3.867671 .8 [id number] [facility] 2022-04-28 00:00:00 2022-04-28 00:00:00 Travel 1.2.840.1 17978.1.1 3.104.2.7 .3.888680 .8 1.2.840.114 350.1.13.10 4.2.7.3.698 084.8 [id number] [facility] 2022-04-23 00:00:00 2022-04-23 00:00:00 Refill Vasiliy Frye 1.2.840.1 99697.1.1 3.104.2.7 .3.511239 .8 [id number] [facility] 2022-04-22 00:00:00 2022-04-22 00:00:00 Telephone Timi Gastelum Hiro 1.2.840.1 90943.1.1 3.104.2.7 .3.289525 .8 [id number] [facility] 2022-04-14 00:00:00 2022-04-14 00:00:00 Telephone Errol Villagran 1.2.840.1 65571.1.1 3.104.2.7 .3.502292 .8 [id number] [facility] 2022-04-09 00:00:00 2022-04-09 00:00:00 Refill Tim Pinto 1.2.840.1 39823.1.1 3.104.2.7 .3.458143 .8 [id number] [facility] 2022-04-08 00:00:00 2022-04-08 00:00:00 Telephone Errol Villagran 1.2.840.1 89331.1.1 3.104.2.7 .3.067537 .8 [id number] [facility] 2022-04-03 07:45:00 2022-04-03 08:31:19 Outpatient DWIGHT REAL [facility] [id number] [facility] 2022-04-02 00:00:00 2022-04-02 00:00:00 Travel 1.2.840.1 14276.1.1 3.104.2.7 .3.142729 .8 1.2.840.114 350.1.13.10 4.2.7.3.698 084.8 [id number] [facility] 2022-03-31 00:00:00 2022-03-31 00:00:00 Refill Doctor Unassigned, [place] 1.2.840.1 78730.1.1 3.104.2.7 .3.139143 .8 [id number] [facility] 2022-03-31 00:00:00 2022-03-31 00:00:00 Refill Tim Pinto 1.2.840.1 89730.1.1 3.104.2.7 .3.178818 .8 [id number] [facility] 2022-03-28 13:00:00 2022-03-28 13:00:00 Outpatient DONAVAN DENG HOWARD [facility] [id number] [facility] 2022-03-27 00:00:00 2022-03-27 00:00:00 Refill Tim Pinto 1.2.840.1 59836.1.1 3.104.2.7 .3.117404 .8 [id number] [facility] 2022-03-26 16:00:00 2022-03-26 16:30:33 Outpatient R TIMI GASTELUM [facility] [id number] [facility] 2022-03-26 16:00:00 2022-03-26 16:30:33 Office Visit Timi Gastelum 1.2.840.1 60593.1.1 3.104.2.7 .3.127189 .8 [id number] [facility] 2022-03-25 00:00:00 2022-03-25 00:00:00 Travel 1.2.840.1 55551.1.1 3.104.2.7 .3.195705 .8 1.2.840.114 350.1.13.10 4.2.7.3.698 084.8 [id number] [facility] 2022-03-21 17:20:00 2022-03-21 17:43:21 Outpatient R STARLA HANSON III [facility] [id number] [facility] 2022-03-21 17:20:00 2022-03-21 17:43:21 Urgent Care Unknown, Attending Starla Hanson Rania 1.2.840.1 35359.1.1 3.104.2.7 .3.210265 .8 [id number] [facility] 2022-03-21 17:15:00 2022-03-21 17:15:00 Outpatient R UNKNOWN, ATTENDING [facility] [id number] [facility] 2022-03-21 00:00:00 2022-03-21 00:00:00 Travel 1.2.840.1 50906.1.1 3.104.2.7 .3.818298 .8 1.2.840.114 350.1.13.10 4.2.7.3.698 084.8 [id number] [facility] 2022-03-20 00:00:00 2022-03-20 00:00:00 Refill Vasiliy Frye 1.2.840.1 70955.1.1 3.104.2.7 .3.695387 .8 [id number] [facility] 2022-03-17 00:00:00 2022-03-17 00:00:00 Travel 1.2.840.1 78862.1.1 3.104.2.7 .3.356076 .8 1.2.840.114 350.1.13.10 4.2.7.3.698 084.8 [id number] [facility] 2022-03-17 00:00:00 2022-03-17 00:00:00 Patient Secure Msg Timi Gastelum [facility] 1.2.840.114 350.1.13.10 4.2.7.2.686 [id number] 011 [id number] [facility] 2022-03-07 00:00:00 2022-03-07 00:00:00 Patient Secure Msg Doctor Unassigned, [place] [facility] 1.2.840.114 350.1.13.10 4.2.7.2.686 [id number] [facility] 2022-03-03 00:00:00 2022-03-03 00:00:00 Telephone Vasiliy Frye 1.2.840.1 66783.1.1 3.104.2.7 .3.909165 .8 [id number] [facility] 2022-02-28 00:00:00 2022-02-28 00:00:00 Tim Henry 1.2.840.1 97360.1.1 3.104.2.7 .3.163768 .8 [id number] [facility] 2022-02-24 00:00:00 2022-02-24 00:00:00 Outpatient CHARU STRAUSSCY [facility] [id number] [facility] 2022-02-20 15:48:09 2022-02-20 23:59:00 Outpatient R VASILIY FRYE [facility] [id number] [facility] 2022-02-20 15:48:09 2022-02-20 23:59:00 Hospital Encounter Chica Fryezabeth Marcos 1.2.840.1 41840.1.1 3.104.2.7 .3.194834 .8 [id number] [facility] 2022-02-20 00:00:00 2022-02-20 00:00:00 Travel 1.2.840.1 41753.1.1 3.104.2.7 .3.983686 .8 1.2.840.114 350.1.13.10 4.2.7.3.698 084.8 [id number] [facility] 2022-02-18 00:00:00 2022-02-18 00:00:00 Telephone Timi Gastelum 1.2.840.1 54043.1.1 3.104.2.7 .3.139016 .8 [id number] [facility] 2022-02-17 09:30:00 2022-02-17 10:00:00 Office Visit Timi Gastelum 1.2.840.1 99309.1.1 3.104.2.7 .3.446128 .8 [id number] [facility] 2022-02-17 09:30:00 2022-02-17 09:30:00 Outpatient TIMI LOUIS [facility] [id number] [facility] 2022-02-17 00:00:00 2022-02-17 00:00:00 Orders Only Doctor Unassigned, [place] 1.2.840.1 38291.1.1 3.104.2.7 .3.371025 .8 [id number] [facility] 2022-02-17 00:00:00 2022-02-17 00:00:00 Travel 1.2.840.1 69179.1.1 3.104.2.7 .3.658009 .8 1.2.840.114 350.1.13.10 4.2.7.3.698 084.8 [id number] [facility] 2022-02-14 00:00:00 2022-02-14 00:00:00 Telephone AbelareliTimi 1.2.840.1 44569.1.1 3.104.2.7 .3.084743 .8 [id number] [facility] 2022-02-13 00:00:00 2022-02-13 00:00:00 Telephone Vasiliy Frye 1.2.840.1 77891.1.1 3.104.2.7 .3.236960 .8 [id number] [facility] 2022-02-11 00:00:00 2022-02-11 00:00:00 Telephone AbelareliTimi 1.2.840.1 19231.1.1 3.104.2.7 .3.746246 .8 [id number] [facility] 2022-02-11 00:00:00 2022-02-11 00:00:00 Patient Secure Msg Doctor Unassigned, [place] [facility] 1.2.840.114 350.1.13.10 4.2.7.2.686 [id number] [facility] 2022-02-10 09:20:00 2022-02-10 10:34:26 Outpatient R VASILIY FRYE [facility] [id number] [facility] 2022-02-10 09:20:00 2022-02-10 10:34:26 Office Visit Frye, Vasiliy A 1.2.840.1 20376.1.1 3.104.2.7 .3.711032 .8 [id number] [facility] 2022-02-07 10:27:00 2022-02-07 14:26:00 Emergency X JOSUE VELASQUEZ [facility] [id number] [facility] 2022-02-07 10:27:00 2022-02-07 14:26:00 Emergency Josue Velasquez 1.2.840.1 42734.1.1 3.104.2.7 .3.307557 .8 [id number] [facility] 2022-02-07 00:00:00 2022-02-07 00:00:00 Travel 1.2.840.1 15289.1.1 3.104.2.7 .3.011933 .8 1.2.840.114 350.1.13.10 4.2.7.3.698 084.8 [id number] [facility] 2022-02-03 10:30:00 2022-02-03 10:30:00 Outpatient R TIMI GASTELUM [facility] [id number] [facility] 2022-02-03 00:00:00 2022-02-03 00:00:00 Telephone Timi Gastelum 1.2.840.1 64717.1.1 3.104.2.7 .3.040869 .8 [id number] [facility] 2022-02-03 00:00:00 2022-02-03 00:00:00 Patient Secure Msg Timi Gastelum 1.2.840.1 47567.1.1 3.104.2.7 .3.204653 .8 [id number] [facility] 2022-01-28 00:00:00 2022-01-28 00:00:00 Vasiliy Valentin 1.2.840.1 51342.1.1 3.104.2.7 .3.433275 .8 [id number] [facility] 2022-01-13 00:00:00 2022-01-13 00:00:00 Patient Secure Msg Timi Gastelum 1.2.840.1 50941.1.1 3.104.2.7 .3.772402 .8 [id number] [facility] 2022-01-10 00:00:00 2022-01-10 00:00:00 Telephone Provider, [facility] 1.2.840.1 84432.1.1 3.104.2.7 .3.357011 .8 [id number] [facility] 2022-01-07 18:22:04 2022-01-07 23:59:00 Hospital Encounter Vasiliy Frye 1.2.840.1 64920.1.1 3.104.2.7 .3.845027 .8 [id number] [facility] 2022-01-07 18:00:00 2022-01-07 18:29:54 Outpatient R BRENDA WOODRUFF [facility] [id number] [facility] 2022-01-07 18:00:00 2022-01-07 18:29:54 Urgent Care Kacy Brenda 1.2.840.1 88633.1.1 3.104.2.7 .3.551111 .8 [id number] [facility] 2022-01-07 00:00:00 2022-01-07 00:00:00 Travel 1.2.840.1 88028.1.1 3.104.2.7 .3.647511 .8 1.2.840.114 350.1.13.10 4.2.7.3.698 084.8 [id number] [facility] 2022-01-02 00:00:00 2022-01-02 00:00:00 Patient Secure Msg Vasiliy Frye 1.2.840.1 12052.1.1 3.104.2.7 .3.243605 .8 [id number] [facility] 2022-01-02 00:00:00 2022-01-02 00:00:00 Patient Secure Melanie Jaramillo [facility] 1.2.840.114 350.1.13.10 4.2.7.2.686 [id number] [facility] 2021-12-19 00:00:00 2021-12-19 00:00:00 Telephone Vasiliy Frye 1.2.840.1 94681.1.1 3.104.2.7 .3.631302 .8 [id number] [facility] 2021-12-11 00:00:00 2021-12-11 00:00:00 Letter (Out) Nathan Beltrán 1.2.840.1 11464.1.1 3.104.2.7 .3.381807 .8 [id number] [facility] 2021-12-11 00:00:00 2021-12-11 00:00:00 Telephone Vasiliy Frye 1.2.840.1 84215.1.1 3.104.2.7 .3.357983 .8 [id number] [facility] 2021-12-10 20:40:00 2021-12-10 20:50:46 Outpatient R GABRIELA PAEZ [facility] [id number] [facility] 2021-12-10 20:40:00 2021-12-10 20:50:46 Urgent Care Gabriela Paez [facility] 1.2.840.1 48324.1.1 3.104.2.7 .3.810235 .8 [id number] [facility] 2021-12-07 19:38:00 2021-12-07 23:15:00 Emergency X FREDO PANDEY [facility] ERT [id number] [facility] 2021-12-07 19:38:00 2021-12-07 23:15:00 Emergency Fredo Pandey 1.2.840.1 42400.1.1 3.104.2.7 .3.998313 .8 [id number] [facility] 2021-12-07 19:38:00 2021-12-07 23:15:00 Emergency X FREDO PANDEY [facility] ERT [id number] [facility] 2021-12-07 19:00:00 2021-12-07 19:05:01 Outpatient R BRENDA WOODRUFF [facility] [id number] [facility] 2021-12-07 19:00:00 2021-12-07 19:05:01 Nurse Visit Brenda Woodruff Nurse, [facility] 1.2.840.1 06831.1.1 3.104.2.7 .3.005602 .8 [id number] [facility] 2021-12-07 00:00:00 2021-12-07 00:00:00 Travel 1.2.840.1 82863.1.1 3.104.2.7 .3.324287 .8 1.2.840.114 350.1.13.10 4.2.7.3.698 084.8 [id number] [facility] 2021-11-24 00:00:00 2021-11-24 00:00:00 RefVasiliy Lebron 1.2.840.1 99581.1.1 3.104.2.7 .3.566270 .8 [id number] [facility] 2021-11-20 00:00:00 2021-11-20 00:00:00 Vasiliy Humphries 1.2.840.1 81430.1.1 3.104.2.7 .3.840738 .8 [id number] [facility] 2021-11-19 15:40:00 2021-11-19 17:05:47 Outpatient R FRYECHICAVASILIY [facility] [id number] [facility] 2021-11-19 15:40:00 2021-11-19 17:05:47 Office Visit Vasiliy Frye 1.2.840.1 74542.1.1 3.104.2.7 .3.720071 .8 [id number] [facility] 2021-11-19 15:40:00 2021-11-19 15:40:00 Outpatient R GHASSAN FRYETH [facility] [id number] [facility] 2021-11-19 15:40:00 2021-11-19 15:40:00 Outpatient R GHASSAN FRYETH [facility] [id number] [facility] 2021-11-19 15:40:00 2021-11-19 15:40:00 Outpatient R MELVA VASILIY [facility] [id number] [facility] 2021-11-04 09:00:00 2021-11-04 09:36:27 Office Visit Melanie Barrera 1.2.840.1 96635.1.1 3.104.2.7 .3.823314 .8 [id number] [facility] 2021-11-04 09:00:00 2021-11-04 09:36:27 Outpatient R MELANIE BARRERA [facility] [id number] [facility] 2021-11-04 09:00:00 2021-11-04 09:36:27 Outpatient R MELANIE BARRERA [facility] [id number] [facility] 2021-11-04 09:00:00 2021-11-04 09:36:27 Office Visit Melanie Barrera 1.2.840.1 87810.1.1 3.104.2.7 .3.421435 .8 [id number] [facility] 2021-11-04 09:00:00 2021-11-04 09:00:00 Outpatient MELANIE STRAUSS [facility] [id number] [facility] 2021-11-04 00:00:00 2021-11-04 00:00:00 Travel 1.2.840.1 98565.1.1 3.104.2.7 .3.827484 .8 1.2.840.114 350.1.13.10 4.2.7.3.698 084.8 [id number] [facility] 2021-11-04 00:00:00 2021-11-04 00:00:00 Travel 1.2.840.1 70011.1.1 3.104.2.7 .3.606575 .8 1.2.840.114 350.1.13.10 4.2.7.3.698 084.8 [id number] [facility] 2021-11-01 15:00:00 2021-11-01 16:06:00 Outpatient TARA MCKEON [facility] [id number] [facility] 2021-11-01 15:00:00 2021-11-01 15:00:00 Outpatient TARA MCKEON [facility] [id number] [facility] 2021-11-01 00:00:00 2021-11-01 00:00:00 Travel 1.2.840.1 01963.1.1 3.104.2.7 .3.058930 .8 1.2.840.114 350.1.13.10 4.2.7.3.698 084.8 [id number] [facility] 2021-11-01 00:00:00 2021-11-01 00:00:00 Travel 1.2.840.1 24109.1.1 3.104.2.7 .3.259219 .8 1.2.840.114 350.1.13.10 4.2.7.3.698 084.8 [id number] [facility] 2021-11-01 00:00:00 2021-11-01 00:00:00 Travel 1.2.840.1 60760.1.1 3.104.2.7 .3.793348 .8 1.2.840.114 350.1.13.10 4.2.7.3.698 084.8 [id number] [facility] 2021-10-30 09:00:00 2021-10-30 09:00:00 Hospital Encounter Vasiliy Frye 1.2.840.1 61950.1.1 3.104.2.7 .3.590775 .8 [id number] [facility] 2021-10-30 09:00:00 2021-10-30 09:00:00 Hospital Encounter Vasiliy Frye 1.2.840.1 15734.1.1 3.104.2.7 .3.229560 .8 [id number] [facility] 2021-10-30 09:00:00 2021-10-30 09:00:00 Hospital Encounter Vasiliy Frye 1.2.840.1 90132.1.1 3.104.2.7 .3.006708 .8 [id number] [facility] 2021-10-26 00:00:00 2021-10-26 00:00:00 Refill FryeChicaVasiliy Marcos 1.2.840.1 65432.1.1 3.104.2.7 .3.971349 .8 [id number] [facility] 2021-10-26 00:00:00 2021-10-26 00:00:00 Refill Tim Pinto 1.2.840.1 93296.1.1 3.104.2.7 .3.190247 .8 [id number] [facility] 2021-10-26 00:00:00 2021-10-26 00:00:00 Refill Vasiliy Frye 1.2.840.1 76393.1.1 3.104.2.7 .3.934289 .8 [id number] [facility] 2021-10-26 00:00:00 2021-10-26 00:00:00 Refill Tim Pinto 1.2.840.1 53939.1.1 3.104.2.7 .3.588180 .8 [id number] [facility] 2021-10-26 00:00:00 2021-10-26 00:00:00 Refill Vasiliy Frye 1.2.840.1 90366.1.1 3.104.2.7 .3.197779 .8 [id number] [facility] 2021-10-26 00:00:00 2021-10-26 00:00:00 Refill Tim Pinto 1.2.840.1 43688.1.1 3.104.2.7 .3.989054 .8 [id number] [facility] 2021-10-10 10:15:00 2021-10-10 10:15:00 Outpatient MELANIE STRAUSS [facility] [id number] [facility] 2021-10-10 00:00:00 2021-10-10 00:00:00 Refill Vasiliy Frye 1.2.840.1 56592.1.1 3.104.2.7 .3.733626 .8 [id number] [facility] 2021-10-10 00:00:00 2021-10-10 00:00:00 Refill Vasiliy Frye 1.2.840.1 68171.1.1 3.104.2.7 .3.170867 .8 [id number] [facility] 2021-10-10 00:00:00 2021-10-10 00:00:00 Refill FryeVasiliy 1.2.840.1 18026.1.1 3.104.2.7 .3.279856 .8 [id number] [facility] 2021-10-09 14:30:00 2021-10-09 14:30:00 Outpatient Connie CALABRESE FRANCISCO JAVIER [facility] [id number] [facility] 2021-10-03 14:00:00 2021-10-03 14:00:00 Outpatient R TIMI GASTELUM [facility] [id number] [facility] 2021-10-03 14:00:00 2021-10-03 14:00:00 Outpatient Connie TIMI GASTELUM [facility] [id number] [facility] 2021-10-03 14:00:00 2021-10-03 14:00:00 Outpatient TIMI LOUIS [facility] [id number] [facility] 2021-10-01 00:00:00 2021-10-01 00:00:00 Telephone Timi Gastelum 1.2.840.1 12495.1.1 3.104.2.7 .3.253036 .8 [id number] [facility] 2021-10-01 00:00:00 2021-10-01 00:00:00 Telephone Timi Gastelum 1.2.840.1 29144.1.1 3.104.2.7 .3.491384 .8 [id number] [facility] 2021-10-01 00:00:00 2021-10-01 00:00:00 Telephone Timi Gastelum [facility] 1.2.840.114 350.1.13.10 4.2.7.2.686 [id number] [id number] [facility] 2021-10-01 00:00:00 2021-10-01 00:00:00 Telephone Romman, Timi Hiro 1.2.840.1 13039.1.1 3.104.2.7 .3.514723 .8 [id number] [facility] 2021-09-30 13:00:00 2021-09-30 14:55:57 Office Visit Timi Gastelum 1.2.840.1 62982.1.1 3.104.2.7 .3.383709 .8 [id number] [facility] 2021-09-30 13:00:00 2021-09-30 14:55:57 Office Visit Timi Gastelum 1.2.840.1 51441.1.1 3.104.2.7 .3.111503 .8 [id number] [facility] 2021-09-30 13:00:00 2021-09-30 14:55:57 Office Visit Timi Gastelum 1.2.840.1 49179.1.1 3.104.2.7 .3.955675 .8 [id number] [facility] 2021-09-30 13:00:00 2021-09-30 14:55:57 Outpatient TIMI LOUIS [facility] [id number] [facility] 2021-09-30 13:00:00 2021-09-30 13:00:00 Outpatient TIMI LOUIS [facility] [id number] [facility] 2021-09-30 11:00:00 2021-09-30 11:00:00 Outpatient R TIMI GASTELUM [facility] [id number] [facility] 2021-09-30 00:00:00 2021-09-30 00:00:00 Orders Only Doctor Unassigned, [place] 1.2.840.1 60230.1.1 3.104.2.7 .3.995241 .8 [id number] [facility] 2021-09-30 00:00:00 2021-09-30 00:00:00 Travel 1.2.840.1 84118.1.1 3.104.2.7 .3.869166 .8 1.2.840.114 350.1.13.10 4.2.7.3.698 084.8 [id number] [facility] 2021-09-30 00:00:00 2021-09-30 00:00:00 Orders Only Doctor Unassigned, [place] 1.2.840.1 25274.1.1 3.104.2.7 .3.331682 .8 [id number] [facility] 2021-09-30 00:00:00 2021-09-30 00:00:00 Travel 1.2.840.1 62738.1.1 3.104.2.7 .3.696960 .8 1.2.840.114 350.1.13.10 4.2.7.3.698 084.8 [id number] [facility] 2021-09-30 00:00:00 2021-09-30 00:00:00 Travel 1.2.840.1 64340.1.1 3.104.2.7 .3.466267 .8 1.2.840.114 350.1.13.10 4.2.7.3.698 084.8 [id number] [facility] 2021-09-30 00:00:00 2021-09-30 00:00:00 Orders Only Doctor Unassigned, [place] 1.2.840.1 58793.1.1 3.104.2.7 .3.193635 .8 [id number] [facility] 2021-09-28 11:15:00 2021-09-28 11:30:00 Laboratory Only Timi Gastelum Only, Adc Test 1.2.840.1 26202.1.1 3.104.2.7 .3.748660 .8 [id number] [facility] 2021-09-28 11:15:00 2021-09-28 11:30:00 Laboratory Only Timi Gastelum Only, Adc Test 1.2.840.1 95503.1.1 3.104.2.7 .3.141986 .8 [id number] [facility] 2021-09-28 11:15:00 2021-09-28 11:30:00 Laboratory Only Only, Adc Test Timi Gastelum [facility] 1.2.840.114 350.1.13.10 4.2.7.2.686 [id number] [facility] 2021-09-28 11:15:00 2021-09-28 11:30:00 Laboratory Only Timi Gastelum Only, Adc Test 1.2.840.1 08662.1.1 3.104.2.7 .3.642158 .8 [id number] [facility] 2021-09-28 11:15:00 2021-09-28 11:15:00 Outpatient R TIMI GASTELUM [facility] [id number] [facility] 2021-09-26 15:15:00 2021-09-26 15:15:00 Outpatient ILIANA GOOD [facility] [id number] [facility] 2021-09-26 00:00:00 2021-09-26 00:00:00 Telephone Timi Gastelum 1.2.840.1 57308.1.1 3.104.2.7 .3.822690 .8 [id number] [facility] 2021-09-26 00:00:00 2021-09-26 00:00:00 Telephone Timi Gastelum 1.2.840.1 39637.1.1 3.104.2.7 .3.052891 .8 [id number] [facility] 2021-09-26 00:00:00 2021-09-26 00:00:00 Telephone Timi Gastelum Hiro [facility] 1.2840.114 350.1.13.10 4.2.7.2.686 [id number] [id number] [facility] 2021-09-26 00:00:00 2021-09-26 00:00:00 Telephone Timi Gastelum 1.2.840.1 86654.1.1 3.104.2.7 .3.347802 .8 [id number] [facility] 2021-09-19 00:00:00 2021-09-19 00:00:00 Telephone Vasiliy Frye 1.2.840.1 35725.1.1 3.104.2.7 .3.341485 .8 [id number] [facility] 2021-09-19 00:00:00 2021-09-19 00:00:00 Telephone Vasiliy Frye 1.2.840.1 67779.1.1 3.104.2.7 .3.424673 .8 [id number] [facility] 2021-09-19 00:00:00 2021-09-19 00:00:00 Telephone Vasiliy Frye [facility] 1.2.840.114 350.1.13.10 4.2.7.2.686 [id number] [facility] 2021-09-19 00:00:00 2021-09-19 00:00:00 Telephone Vasiliy Frye 1.2.840.1 87223.1.1 3.104.2.7 .3.347897 .8 [id number] [facility] 2021-09-18 00:00:00 2021-09-18 00:00:00 Patient Secure Msg Vasiliy Frye 1.2.840.1 40707.1.1 3.104.2.7 .3.595297 .8 [id number] [facility] 2021-09-18 00:00:00 2021-09-18 00:00:00 Patient Secure Vasiliy Rodriguez 1.2.840.1 18803.1.1 3.104.2.7 .3.610499 .8 [id number] [facility] 2021-09-18 00:00:00 2021-09-18 00:00:00 Patient Secure [facility] 1.2.840.114 350.1.13.10 4.2.7.2.686 [id number] [facility] 2021-09-18 00:00:00 2021-09-18 00:00:00 Patient Secure Vasiliy Rodriguez 1.2.840.1 80745.1.1 3.104.2.7 .3.805103 .8 [id number] [facility] 2021-09-17 09:15:37 2021-09-17 23:59:00 Outpatient R VASILIY FRYE [facility] [id number] [facility] 2021-09-17 09:15:00 2021-09-17 23:59:00 Hospital Encounter FryeChicaVasiliy A 1.2.840.1 94379.1.1 3.104.2.7 .3.773634 .8 [id number] [facility] 2021-09-17 09:15:00 2021-09-17 23:59:00 Hospital Encounter FryeChica josuezabritta Rodríguez 1.2.840.1 30470.1.1 3.104.2.7 .3.511679 .8 [id number] [facility] 2021-09-17 09:15:00 2021-09-17 23:59:00 Hospital Encounter Vasiliy Frye Marcos [facility] 1.2.840.114 350.1.13.10 4.2.7.2.686 [id number] [facility] 2021-09-17 09:15:00 2021-09-17 23:59:00 Hospital Encounter Frye, Vasiliy Marcos 1.2.840.1 72741.1.1 3.104.2.7 .3.641580 .8 [id number] [facility] 2021-09-17 08:00:00 2021-09-17 09:03:08 Office Visit Vasiliy Frye 1.2.840.1 00176.1.1 3.104.2.7 .3.633787 .8 [id number] [facility] 2021-09-17 08:00:00 2021-09-17 09:03:08 Office Visit Vasiliy Frye 1.2.840.1 66849.1.1 3.104.2.7 .3.448829 .8 [id number] [facility] 2021-09-17 08:00:00 2021-09-17 09:03:08 Outpatient R VASILIY FRYE [facility] [id number] [facility] 2021-09-17 08:00:00 2021-09-17 09:03:08 Office Visit Vasiliy Frye [facility] 1.2.840.114 350.1.13.10 4.2.7.2.686 [id number] [facility] 2021-09-17 08:00:00 2021-09-17 09:03:08 Office Visit Vasiliy Frye 1.2.840.1 46704.1.1 3.104.2.7 .3.115849 .8 [id number] [facility] 2021-09-17 08:00:00 2021-09-17 08:00:00 Outpatient R MELVA VASILIY [facility] [id number] [facility] 2021-09-17 00:00:00 2021-09-17 00:00:00 Travel 1.2.840.1 67414.1.1 3.104.2.7 .3.271465 .8 1.2.840.114 350.1.13.10 4.2.7.3.698 084.8 [id number] [facility] 2021-09-17 00:00:00 2021-09-17 00:00:00 Orders Only Doctor Unassigned, [place] 1.2.840.1 12752.1.1 3.104.2.7 .3.559040 .8 [id number] [facility] 2021-09-17 00:00:00 2021-09-17 00:00:00 Travel 1.2.840.1 85712.1.1 3.104.2.7 .3.290789 .8 1.2.840.114 350.1.13.10 4.2.7.3.698 084.8 [id number] [facility] 2021-09-17 00:00:00 2021-09-17 00:00:00 Orders Only Doctor Unassigned, [place] 1.2.840.1 03773.1.1 3.104.2.7 .3.832822 .8 [id number] [facility] 2021-09-17 00:00:00 2021-09-17 00:00:00 Orders Only Doctor Unassigned, [place] [facility] 1.2.840.114 350.1.13.10 4.2.7.2.686 [id number] [facility] 2021-09-17 00:00:00 2021-09-17 00:00:00 Travel 1.2.840.1 65222.1.1 3.104.2.7 .3.536826 .8 1.2.840.114 350.1.13.10 4.2.7.3.698 084.8 [id number] [facility] 2021-09-17 00:00:00 2021-09-17 00:00:00 Orders Only Doctor Unassigned, [place] 1.2.840.1 80012.1.1 3.104.2.7 .3.022257 .8 [id number] [facility] 2021 13:30:00 2021 13:30:00 Outpatient R MELANIE BARRERA [facility] [id number] [facility] 2021-09-11 00:00:00 2021-09-11 00:00:00 Telephone Melanie Barrera 1.2.840.1 37315.1.1 3.104.2.7 .3.698664 .8 [id number] [facility] 2021-09-11 00:00:00 2021-09-11 00:00:00 Telephone Melanie Barrera 1.2.840.1 82399.1.1 3.104.2.7 .3.519291 .8 [id number] [facility] 2021-09-11 00:00:00 2021-09-11 00:00:00 Telephone Melanie Barrera [facility] 1.2.840.114 350.1.13.10 4.2.7.2.686 [id number] [facility] 2021-09-11 00:00:00 2021-09-11 00:00:00 Telephone Melanie Barrera 1.2.840.1 10156.1.1 3.104.2.7 .3.546347 .8 [id number] [facility] 2021-09-06 13:00:00 2021-09-06 13:00:00 Outpatient TIMI LOUIS [facility] [id number] [facility] 2021-09-06 08:30:00 2021-09-06 08:30:00 Outpatient TIMI LOUIS [facility] [id number] [facility] 2021-09-04 13:00:00 2021-09-04 13:00:00 Outpatient [facility] L[facility] [id number] [facility] 2021-09-04 13:00:00 2021-09-04 13:00:00 Outpatient [facility] [id number] [facility] 2021-09-04 00:00:00 2021-09-04 00:00:00 Telephone Timi Gasteluml 1.2.840.1 33844.1.1 3.104.2.7 .3.475516 .8 [id number] [facility] 2021-09-04 00:00:00 2021-09-04 00:00:00 Telephone Timi Gastelum Hiro 1.2.840.1 94769.1.1 3.104.2.7 .3.285151 .8 [id number] [facility] 2021-09-04 00:00:00 2021-09-04 00:00:00 Telephone Abelareli Timi Bosch [facility] 1..840.114 350.1.13.10 4.2.7.2.686 [id number] [facility] 2021-09-04 00:00:00 2021-09-04 00:00:00 Telephone Timi Gastelum Hiro 1.2.840.1 49547.1.1 3.104.2.7 .3.761698 .8 [id number] [facility] 2021-08-24 00:00:00 2021-08-24 00:00:00 Vasiliy Valentin 1.2.840.1 35396.1.1 3.104.2.7 .3.166329 .8 [id number] [facility] 2021-08-24 00:00:00 2021-08-24 00:00:00 Refill FryeLornaVasiliy A 1.2.840.1 96036.1.1 3.104.2.7 .3.276222 .8 [id number] [facility] 2021-08-24 00:00:00 2021-08-24 00:00:00 Refill FryeLornaVasiliy A 1.2.840.1 77647.1.1 3.104.2.7 .3.609971 .8 [id number] [facility] 2021-08-21 00:00:00 2021-08-21 00:00:00 Orders Only Doctor Unassigned, [place] 1.2.840.1 77498.1.1 3.104.2.7 .3.447788 .8 [id number] [facility] 2021-08-21 00:00:00 2021-08-21 00:00:00 Orders Only Doctor Unassigned, [place] 1.2.840.1 04162.1.1 3.104.2.7 .3.803784 .8 [id number] [facility] 2021-08-21 00:00:00 2021-08-21 00:00:00 Orders Only Doctor Unassigned, [place] 1.2.840.1 78909.1.1 3.104.2.7 .3.389321 .8 [id number] [facility] 2021-08-19 00:00:00 2021-08-19 00:00:00 Patient Secure Msg Timi Gastelum 1.2.840.1 94401.1.1 3.104.2.7 .3.411535 .8 [id number] [facility] 2021-08-19 00:00:00 2021-08-19 00:00:00 Patient Secure Msg Timi Gastelum 1.2.840.1 17469.1.1 3.104.2.7 .3.604085 .8 [id number] [facility] 2021-08-19 00:00:00 2021-08-19 00:00:00 Patient Secure Timi Wright 1.2.840.1 85291.1.1 3.104.2.7 .3.759665 .8 [id number] [facility] 2021-08-11 07:32:00 2021-08-12 21:25:00 Emergency Fredo Pandey Yaman 1.2.840.1 15883.1.1 3.104.2.7 .3.976831 .8 [id number] [facility] 2021-08-11 07:32:00 2021-08-12 21:25:00 Outpatient X [facility] [id number] [facility] 2021-08-11 07:32:00 2021-08-12 21:25:00 Emergency Fredo Pandey Yaman 1.2.840.1 66873.1.1 3.104.2.7 .3.751030 .8 [id number] [facility] 2021-08-11 07:32:00 2021-08-12 21:25:00 Emergency Fredo Pandey Yaman 1.2.840.1 85924.1.1 3.104.2.7 .3.746378 .8 [id number] [facility] 2021-08-11 00:00:00 2021-08-11 00:00:00 Travel 1.2.840.1 15698.1.1 3.104.2.7 .3.772585 .8 1.2.840.114 350.1.13.10 4.2.7.3.698 084.8 [id number] [facility] 2021-08-11 00:00:00 2021-08-11 00:00:00 Travel 1.2.840.1 30177.1.1 3.104.2.7 .3.517661 .8 1.2.840.114 350.1.13.10 4.2.7.3.698 084.8 [id number] [facility] 2021-08-11 00:00:00 2021-08-11 00:00:00 Travel 1.2.840.1 53765.1.1 3.104.2.7 .3.817784 .8 1.2.840.114 350.1.13.10 4.2.7.3.698 084.8 [id number] [facility] 2021-08-02 16:00:00 2021-08-02 16:22:45 Outpatient R TIMI GASTELUM [facility] [id number] [facility] 2021-08-02 16:00:00 2021-08-02 16:22:45 Outpatient R TIMI GASTELUM [facility] [id number] [facility] 2021-08-02 16:00:00 2021-08-02 16:22:45 Office Visit Timi Gastelum [facility] 1.2.840.114 350.1.13.10 4.2.7.2.686 [id number] 011 [id number] [facility] 2021-08-02 16:00:00 2021-08-02 16:22:45 Office Visit Timi Gastelum 1.2.840.1 03803.1.1 3.104.2.7 .3.389358 .8 [id number] [facility] 2021-08-01 00:00:00 2021-08-01 00:00:00 Travel 1.2.840.1 66373.1.1 3.104.2.7 .3.515051 .8 1.2.840.114 350.1.13.10 4.2.7.3.698 084.8 [id number] [facility] 2021-08-01 00:00:00 2021-08-01 00:00:00 Travel 1.2.840.1 36706.1.1 3.104.2.7 .3.849147 .8 1.2.840.114 350.1.13.10 4.2.7.3.698 084.8 [id number] [facility] 2021-07-29 00:00:00 2021-07-29 00:00:00 Telephone [facility] 1.2.840.114 350.1.13.10 4.2.7.2.686 [id number] [facility] 2021-07-29 00:00:00 2021-07-29 00:00:00 Telephone Vasiliy Frye 1.2.840.1 79470.1.1 3.104.2.7 .3.810522 .8 [id number] [facility] 2021-07-29 00:00:00 2021-07-29 00:00:00 Telephone Vasiliy Frye 1.2.840.1 53745.1.1 3.104.2.7 .3.488190 .8 [id number] [facility] 2021-07-27 00:00:00 2021-07-27 00:00:00 [facility] 1.2.840.114 350.1.13.10 4.2.7.2.686 [id number] 044 [id number] [facility] 2021-07-27 00:00:00 2021-07-27 00:00:00 Tim Henry 1.2.840.1 99357.1.1 3.104.2.7 .3.846290 .8 [id number] [facility] 2021-07-27 00:00:00 2021-07-27 00:00:00 Feliciano Tim Pinto 1.2.840.1 43837.1.1 3.104.2.7 .3.536477 .8 [id number] [facility] 2021-07-22 16:20:00 2021-07-22 16:20:00 Outpatient VASILIY ROMERO [facility] [id number] [facility] 2021-07-22 00:00:00 2021-07-22 00:00:00 Telephone Timi Gastelum [facility] 1.2.840.114 350.1.13.10 4.2.7.2.686 [id number] 011 [id number] [facility] 2021-07-22 00:00:00 2021-07-22 00:00:00 Telephone Timi Gastelum 1.2.840.1 88095.1.1 3.104.2.7 .3.620422 .8 [id number] [facility] 2021-07-22 00:00:00 2021-07-22 00:00:00 Telephone Timi Gastelum 1.2.840.1 02807.1.1 3.104.2.7 .3.491145 .8 [id number] [facility] 2021-07-19 00:00:00 2021-07-19 00:00:00 [facility] 1.2.840.114 350.1.13.10 4.2.7.2.686 [id number] 011 [id number] [facility] 2021-07-19 00:00:00 2021-07-19 00:00:00 Telephone Timi Gastelum 1.2.840.1 26563.1.1 3.104.2.7 .3.324207 .8 [id number] [facility] 2021-07-19 00:00:00 2021-07-19 00:00:00 Telephone Timi Gastelum 1.2.840.1 50466.1.1 3.104.2.7 .3.284046 .8 [id number] [facility] 2021-07-18 09:02:53 2021-07-18 23:59:00 Outpatient R TIMI GASTELUM [facility] [id number] [facility] 2021-07-18 09:02:53 2021-07-18 23:59:00 Hospital Encounter Timi Gastelum [facility] 1.2.840.114 350.1.13.10 4.2.7.2.686 [id number] [facility] 2021-07-18 09:02:53 2021-07-18 23:59:00 Hospital Encounter Timi Gastelum 1.2.840.1 77315.1.1 3.104.2.7 .3.630394 .8 [id number] [facility] 2021-07-18 09:02:53 2021-07-18 23:59:00 Hospital Encounter Timi Gastelum 1.2.840.1 85774.1.1 3.104.2.7 .3.925979 .8 [id number] [facility] 2021-07-18 09:00:00 2021-07-18 09:30:00 Office Visit Timi Gastelum [facility] 1.2.840.114 350.1.13.10 4.2.7.2.686 [id number] 011 [id number] [facility] 2021-07-18 09:00:00 2021-07-18 09:30:00 Office Visit Timi Gastelum 1.2.840.1 25418.1.1 3.104.2.7 .3.422998 .8 [id number] [facility] 2021-07-18 09:00:00 2021-07-18 09:30:00 Office Visit Abelareli Timi Bosch 1.2.840.1 57806.1.1 3.104.2.7 .3.809211 .8 [id number] [facility] 2021-07-18 09:00:00 2021-07-18 09:00:00 Outpatient R TIMI GASTELUM [facility] [id number] [facility] 2021-07-18 09:00:00 2021-07-18 09:00:00 Outpatient Connie ORIANA TIMI [facility] [id number] [facility] 2021-07-18 00:00:00 2021-07-18 00:00:00 Travel 1.2.840.1 49805.1.1 3.104.2.7 .3.686322 .8 1.2.840.114 350.1.13.10 4.2.7.3.698 084.8 [id number] [facility] 2021-07-18 00:00:00 2021-07-18 00:00:00 Travel 1.2.840.1 60996.1.1 3.104.2.7 .3.503623 .8 1.2.840.114 350.1.13.10 4.2.7.3.698 084.8 [id number] [facility] 2021-07-17 00:00:00 2021-07-17 00:00:00 Telephone Timi Gastelum [facility] 1.2.840.114 350.1.13.10 4.2.7.2.686 [id number] 011 [id number] [facility] 2021-07-17 00:00:00 2021-07-17 00:00:00 Telephone Timi Gastelum [facility] 1.2.840.114 350.1.13.10 4.2.7.2.686 [id number] 011 [id number] [facility] 2021-07-17 00:00:00 2021-07-17 00:00:00 Telephone Timi Gastelum 1.2.840.1 19154.1.1 3.104.2.7 .3.424737 .8 [id number] [facility] 2021-07-17 00:00:00 2021-07-17 00:00:00 Telephone Timi Gastelum 1.2.840.1 03633.1.1 3.104.2.7 .3.983187 .8 [id number] [facility] 2021-07-17 00:00:00 2021-07-17 00:00:00 Telephone Timi Gastelum 1.2.840.1 20877.1.1 3.104.2.7 .3.986501 .8 [id number] [facility] 2021-07-17 00:00:00 2021-07-17 00:00:00 Telephone Timi Gastelum 1.2.840.1 72885.1.1 3.104.2.7 .3.273380 .8 [id number] [facility] 2021-07-16 16:30:00 2021-07-16 16:45:00 Laboratory Only Only, Adc Test Timi Gastelum [facility] 1.2.840.114 350.1.13.10 4.2.7.2.686 [id number] [facility] 2021-07-16 16:30:00 2021-07-16 16:45:00 Laboratory Only Timi Gastelum Only, Adc Test 1.2.840.1 20197.1.1 3.104.2.7 .3.059155 .8 [id number] [facility] 2021-07-16 16:30:00 2021-07-16 16:45:00 Laboratory Only Timi Gastelum Only, Adc Test 1.2.840.1 32387.1.1 3.104.2.7 .3.079779 .8 [id number] [facility] 2021-07-16 16:30:00 2021-07-16 16:30:00 Outpatient R TIMI GASTELUM [facility] [id number] [facility] 2021-07-16 16:30:00 2021-07-16 16:30:00 Outpatient R TIMI GASTELUM [facility] [id number] [facility] 2021-07-15 16:40:00 2021-07-16 15:14:09 Telemedici ne Visit Lorna Fryebemartha Rodríguez 1.2.840.1 85929.1.1 3.104.2.7 .3.035764 .8 [id number] [facility] 2021-07-15 16:40:00 2021-07-16 15:14:09 Telemedici ne Visit Chica Fryeantoinette Rodríguez 1.2.840.1 86222.1.1 3.104.2.7 .3.272330 .8 [id number] [facility] 2021-07-16 00:00:00 2021-07-16 00:00:00 Telephone Timi Gastelum [facility] 1..114 350.1.13.10 4.2.7.2.686 [id number] 011 [id number] [facility] 2021-07-16 00:00:00 2021-07-16 00:00:00 Orders Only Doctor Unassigned, [place] [facility] 1.840.114 350.1.13.10 4.2.7.2.686 [id number] 009 [id number] [facility] 2021-07-16 00:00:00 2021-07-16 00:00:00 Orders Only Doctor Unassigned, [place] 1.2.840.1 12183.1.1 3.104.2.7 .3.487000 .8 [id number] [facility] 2021-07-16 00:00:00 2021-07-16 00:00:00 Telephone Timi Gastelum 1.2840.1 07170.1.1 3.104.2.7 .3.304673 .8 [id number] [facility] 2021-07-16 00:00:00 2021-07-16 00:00:00 Orders Only Doctor Unassigned, [place] 1.2840.1 78513.1.1 3.104.2.7 .3.134927 .8 [id number] [facility] 2021-07-16 00:00:00 2021-07-16 00:00:00 Telephone Timi Gastelum 1.2840.1 57850.1.1 3.104.2.7 .3.941586 .8 [id number] [facility] 2021-07-15 16:40:00 2021-07-15 17:00:00 Telemedici ne Vasiliy Franco [facility] 1.2.840.114 350.1.13.10 4.2.7.2.686 [id number] [facility] 2021-07-15 16:40:00 2021-07-15 16:40:00 Outpatient VASILIY ROMERO [facility] [id number] [facility] 2021-07-15 16:40:00 2021-07-15 16:40:00 Outpatient VASILIY ROMERO [facility] [id number] [facility] 2021-07-15 00:00:00 2021-07-15 00:00:00 Telephone Timi Gastelum [facility] 1.2840.114 350.1.13.10 4.2.7.2.686 [id number] 011 [id number] [facility] 2021-07-15 00:00:00 2021-07-15 00:00:00 Telephone Timi Gastelum [facility] 1.2.840.114 350.1.13.10 4.2.7.2.686 [id number] 011 [id number] [facility] 2021-07-15 00:00:00 2021-07-15 00:00:00 Telephone Oriana Timi Bosch 1.2.840.1 86186.1.1 3.104.2.7 .3.032457 .8 [id number] [facility] 2021-07-15 00:00:00 2021-07-15 00:00:00 Telephone Oriana Timi Bosch 1.2.840.1 48410.1.1 3.104.2.7 .3.598851 .8 [id number] [facility] 2021-07-15 00:00:00 2021-07-15 00:00:00 Telephone Timi Gastelum Hiro 1.2.840.1 15253.1.1 3.104.2.7 .3.413306 .8 [id number] [facility] 2021-07-15 00:00:00 2021-07-15 00:00:00 Telephone Oriana Timi Bosch 1.2.840.1 90376.1.1 3.104.2.7 .3.050815 .8 [id number] [facility] 2021-07-10 09:30:00 2021-07-10 10:24:35 Office Visit Timi Gastelum [facility] 1.2840.114 350.1.13.10 4.2.7.2.686 [id number] 011 [id number] [facility] 2021-07-10 09:30:00 2021-07-10 10:24:35 Outpatient TIMI LOUIS [facility] [id number] [facility] 2021-07-10 09:30:00 2021-07-10 10:24:35 Office Visit Timi Gastelum 1.2.840.1 81209.1.1 3.104.2.7 .3.066366 .8 [id number] [facility] 2021-07-10 09:30:00 2021-07-10 10:24:35 Office Visit Timi Gastelum 1.2.840.1 45451.1.1 3.104.2.7 .3.805586 .8 [id number] [facility] 2021-07-10 09:30:00 2021-07-10 09:30:00 Outpatient TIMI [facility] [id number] [facility] 2021-07-10 00:00:00 2021-07-10 00:00:00 Travel 1.2.840.1 89804.1.1 3.104.2.7 .3.136115 .8 1.2.840.114 350.1.13.10 4.2.7.3.698 084.8 [id number] [facility] 2021-07-10 00:00:00 2021-07-10 00:00:00 Travel 1.2.840.1 49357.1.1 3.104.2.7 .3.534194 .8 1.2.840.114 350.1.13.10 4.2.7.3.698 084.8 [id number] [facility] 2021-07-09 00:00:00 2021-07-09 00:00:00 Patient Secure [facility] 1.2.840.114 350.1.13.10 4.2.7.2.686 [id number] 044 [id number] [facility] 2021-07-09 00:00:00 2021-07-09 00:00:00 Patient Secure Msg Vasiliy Frye 1.2.840.1 59329.1.1 3.104.2.7 .3.386270 .8 [id number] [facility] 2021-07-09 00:00:00 2021-07-09 00:00:00 Patient Secure g Vasiliy Frye 1.2.840.1 31490.1.1 3.104.2.7 .3.304793 .8 [id number] [facility] 2021-07-08 16:40:00 2021-07-08 17:00:11 Telemedici ne Visit Vasiliy Frye [facility] 1.2.840.114 350.1.13.10 4.2.7.2.686 [id number] [facility] 2021-07-08 16:40:00 2021-07-08 17:00:11 Outpatient R VASILIY FRYE [facility] [id number] [facility] 2021-07-08 16:40:00 2021-07-08 17:00:11 Telemedici ne Visit Vasiliy Frye Marcos 1.2.840.1 21416.1.1 3.104.2.7 .3.249481 .8 [id number] [facility] 2021-07-08 16:40:00 2021-07-08 17:00:11 Telemedici ne Visit Vasiliy Frye Marcos 1.2.840.1 29158.1.1 3.104.2.7 .3.836622 .8 [id number] [facility] 2021-07-08 16:40:00 2021-07-08 16:40:00 Outpatient R VASILIY FRYE [facility] [id number] [facility] 2021-06-26 15:00:00 2021-06-26 15:00:00 Outpatient R TIMI GASTELUM [facility] [id number] [facility] 2021-06-18 14:20:00 2021-06-18 15:35:19 Outpatient R FRYE VASILIY [facility] [id number] [facility] 2021-06-18 14:20:00 2021-06-18 15:35:19 Office Visit Frye Vasiliy A 1.2.840.1 49955.1.1 3.104.2.7 .3.847353 .8 [id number] [facility] 2021-06-18 14:20:00 2021-06-18 15:35:19 Office Visit Frye Vasiliy A 1.2.840.1 20074.1.1 3.104.2.7 .3.669142 .8 [id number] [facility] 2021-06-13 17:23:50 2021-06-14 19:59:00 Observatio n nullFlavo r [facility] Curran [id number] 30 David alcazar Bodega 2021-06-13 14:33:00 2021-06-14 13:59:00 Outpatient [facility]IAN [facility] 2021-06-04 00:00:00 2021-06-04 00:00:00 Telephone Timi Gastelum [facility] .2.840.114 350.1.13.10 4.2.7.2.686 [id number] 011 [id number] [facility] 2021-06-04 00:00:00 2021-06-04 00:00:00 Telephone Timi Gastelum 1..840.1 31139.1.1 3.104.2.7 .3.282153 .8 [id number] [facility] 2021-06-04 00:00:00 2021-06-04 00:00:00 Telephone Timi Gastelum 1.2.840.1 18839.1.1 3.104.2.7 .3.357621 .8 [id number] [facility] 2021-06-03 10:30:00 2021-06-03 11:00:00 Office Visit Timi Gastelum 1.2.840.1 68255.1.1 3.104.2.7 .3.201528 .8 [id number] [facility] 2021-06-03 10:30:00 2021-06-03 10:30:00 Outpatient R ORIANA TIMI [facility] [id number] [facility] 2021-06-03 10:30:00 2021-06-03 10:30:00 Outpatient Connie COLEARELITIMI [facility] [id number] [facility] 2021-06-03 00:00:00 2021-06-03 00:00:00 Orders Only Doctor Unassigned, [place] [facility] 1.2.840.114 350.1.13.10 4.2.7.2.686 [id number] 009 [id number] [facility] 2021-06-03 00:00:00 2021-06-03 00:00:00 Orders Only Doctor Unassigned, [place] 1.2.840.1 22156.1.1 3.104.2.7 .3.548610 .8 [id number] [facility] 2021-06-03 00:00:00 2021-06-03 00:00:00 Travel 1.2.840.1 99180.1.1 3.104.2.7 .3.711575 .8 1.2.840.114 350.1.13.10 4.2.7.3.698 084.8 [id number] [facility] 2021-06-01 11:15:00 2021-06-01 11:30:00 Laboratory Only Only, Adc Test Timi Gastelum [facility] 1.20.114 350.1.13.10 4.2.7.2.686 [id number] [facility] 2021-06-01 11:15:00 2021-06-01 11:30:00 Laboratory Only Timi Gastelum Only, Adc Test 1.20.1 30412.1.1 3.104.2.7 .3.936836 .8 [id number] [facility] 2021-06-01 11:15:00 2021-06-01 11:15:00 Outpatient R TIMI GASTELUM [facility] [id number] [facility] 2021-06-01 11:15:00 2021-06-01 11:15:00 Outpatient R TIMI GASTELUM [facility] [id number] [facility] 2021-06-01 00:00:00 2021-06-01 00:00:00 Orders Only Doctor Unassigned, [place] [facility] 1..114 350.1.13.10 4.2.7.2.686 [id number] 009 [id number] [facility] 2021-06-01 00:00:00 2021-06-01 00:00:00 Orders Only Doctor Unassigned, [place] 1.2840.1 31958.1.1 3.104.2.7 .3.092868 .8 [id number] [facility] 2021-05-29 14:30:00 2021-05-29 15:35:47 Outpatient R TIMI GASTELUM [facility] [id number] [facility] 2021-05-29 14:30:00 2021-05-29 15:35:47 Office Visit Timi Gastelumeel [facility] 1.0.114 350.1.13.10 4.2.7.2.686 [id number] 011 [id number] [facility] 2021-05-29 14:30:00 2021-05-29 15:35:47 Office Visit Timi Gastelum 1.2.840.1 43359.1.1 3.104.2.7 .3.979102 .8 [id number] [facility] 2021-05-29 14:30:00 2021-05-29 14:30:00 Outpatient R TIMI GASTELMU [facility] [id number] [facility] 2021-05-29 00:00:00 2021-05-29 00:00:00 Travel 1.2.840.1 40606.1.1 3.104.2.7 .3.719855 .8 1.2.840.114 350.1.13.10 4.2.7.3.698 084.8 [id number] [facility] 2021-05-28 00:00:00 2021-05-28 00:00:00 Orders Only Doctor Unassigned, [place] 1.2.840.1 59870.1.1 3.104.2.7 .3.439608 .8 [id number] [facility] 2021-05-28 00:00:00 2021-05-28 00:00:00 Transition of Care Eboni Sanders 1.2.840.1 18129.1.1 3.104.2.7 .3.757025 .8 [id number] [facility] 2021-05-28 00:00:00 2021-05-28 00:00:00 Orders Only Doctor Unassigned, [place] 1.2.840.1 68851.1.1 3.104.2.7 .3.896234 .8 [id number] [facility] 2021-05-28 00:00:00 2021-05-28 00:00:00 Transition of Care Eboni Sanders 1.2.840.1 46832.1.1 3.104.2.7 .3.567026 .8 [id number] [facility] 2021-05-27 00:00:00 2021-05-27 00:00:00 Refluiza Chica Fryezabeth Marcos 1.2.840.1 81050.1.1 3.104.2.7 .3.689813 .8 [id number] [facility] 2021-05-27 00:00:00 2021-05-27 00:00:00 Patient Secure Msg Doctor Unassigned, [place] [facility] 1.2.840.114 350.1.13.10 4.2.7.2.686 [id number] [facility] 2021-05-27 00:00:00 2021-05-27 00:00:00 Refill Vasiliy Frye 1.2.840.1 14062.1.1 3.104.2.7 .3.411644 .8 [id number] [facility] 2021-05-27 00:00:00 2021-05-27 00:00:00 Patient Secure Msg Doctor Unassigned, [place] 1.2.840.1 86756.1.1 3.104.2.7 .3.478047 .8 [id number] [facility] 2021-05-23 13:03:00 2021-05-26 15:15:00 Inpatient X [facility] KOR[facility] [id number] [facility] 2021-05-23 13:03:00 2021-05-26 15:15:00 Hospital Encounter Jaclyn Culp Anand Vilaschandr a 1..840.1 60672.1.1 3.104.2.7 .3.123663 .8 [id number] [facility] 2021-05-23 13:03:00 2021-05-26 15:15:00 Hospital Encounter Jaclyn Culp Anand Vilaschandr a 1.2.840.1 72075.1.1 3.104.2.7 .3.731113 .8 [id number] [facility] 2021-05-25 00:00:00 2021-05-25 00:00:00 Outpatient R VASILIY FRYE [facility] [id number] [facility] 2021-05-23 00:00:00 2021-05-23 00:00:00 Travel 1.2.840.1 04097.1.1 3.104.2.7 .3.413116 .8 1.2.840.114 350.1.13.10 4.2.7.3.698 084.8 [id number] [facility] 2021-05-23 00:00:00 2021-05-23 00:00:00 Travel 1.2.840.1 78284.1.1 3.104.2.7 .3.394339 .8 1.2.840.114 350.1.13.10 4.2.7.3.698 084.8 [id number] [facility] 2021-05-21 00:00:00 2021-05-21 00:00:00 Orders Only Doctor Unassigned, [place] 1.2.840.1 08026.1.1 3.104.2.7 .3.850766 .8 [id number] [facility] 2021-05-21 00:00:00 2021-05-21 00:00:00 Orders Only Doctor Unassigned, [place] 1.2.840.1 86431.1.1 3.104.2.7 .3.769815 .8 [id number] [facility] 2021-05-20 00:00:00 2021-05-20 00:00:00 Telephone Vasiliy Frye 1.2.840.1 79483.1.1 3.104.2.7 .3.228769 .8 [id number] [facility] 2021-05-20 00:00:00 2021-05-20 00:00:00 Telephone Vasiliy Frye 1.2.840.1 94225.1.1 3.104.2.7 .3.563239 .8 [id number] [facility] 2021-05-17 16:20:00 2021-05-17 17:50:42 Outpatient R VASILIY FRYE [facility] [id number] [facility] 2021-05-17 16:20:00 2021-05-17 17:50:42 Office Visit Vasiliy Frye 1.2.840.1 80132.1.1 3.104.2.7 .3.744979 .8 [id number] [facility] 2021-05-17 16:20:00 2021-05-17 17:50:42 Office Visit Vasiliy Frye [place] [address].2.840.114 350.1.13.10 4.2.7.2.686 [id number] [facility] 2021-05-17 16:20:00 2021-05-17 17:50:42 Outpatient R VASILIY FRYE [facility] [id number] [facility] 2021-05-17 16:20:00 2021-05-17 17:50:42 Office Visit Vasiliy Frye 1.2.840.1 47768.1.1 3.104.2.7 .3.650815 .8 [id number] [facility] 2021-05-17 16:20:00 2021-05-17 16:20:00 Outpatient R VASILIY FRYE [facility] [id number] [facility] 2021-05-17 00:00:00 2021-05-17 00:00:00 Travel 1.2.840.1 89882.1.1 3.104.2.7 .3.659301 .8 1.2.840.114 350.1.13.10 4.2.7.3.698 084.8 [id number] [facility] 2021-05-17 00:00:00 2021-05-17 00:00:00 Travel 1.2.840.1 06161.1.1 3.104.2.7 .3.391581 .8 1.2.840.114 350.1.13.10 4.2.7.3.698 084.8 [id number] [facility] 2021-05-16 00:00:00 2021-05-16 00:00:00 Telephone Lou Wong 1.2.840.1 05753.1.1 3.104.2.7 .3.635032 .8 [id number] [facility] 2021-05-16 00:00:00 2021-05-16 00:00:00 Telephone Lou Wong 1.2.840.1 41111.1.1 3.104.2.7 .3.612115 .8 [id number] [facility] 2021-05-06 15:30:00 2021-05-06 15:30:00 Outpatient R [facility] [id number] [facility] 2021-05-06 15:30:00 2021-05-06 15:30:00 Outpatient R RAJAN VIVAS [facility] [id number] [facility] 2021-05-06 11:20:00 2021-05-06 13:51:21 Outpatient R VASILIY FRYE [facility] [id number] [facility] 2021-05-06 11:20:00 2021-05-06 13:51:21 Telemedici ne Visit Vasiliy Frye 1.2.840.1 70732.1.1 3.104.2.7 .3.086618 .8 [id number] [facility] 2021-05-06 11:20:00 2021-05-06 13:51:21 Telemedici ne Visit Melva Vasiliy Marcos 1.2.840.1 14836.1.1 3.104.2.7 .3.601226 .8 [id number] [facility] 2021-05-06 11:20:00 2021-05-06 11:20:00 Outpatient R VASILIY FRYE [facility] [id number] [facility] 2021-05-03 16:00:00 2021-05-06 08:28:50 Outpatient R VASILIY FRYE [facility] [id number] [facility] 2021-05-03 16:00:00 2021-05-06 08:28:50 Office Visit Vasiliy Frye 1.2.840.1 76633.1.1 3.104.2.7 .3.928196 .8 [id number] [facility] 2021-05-03 16:00:00 2021-05-06 08:28:50 Office Visit Melva Vasiliy Marcos 1.2.840.1 60836.1.1 3.104.2.7 .3.749399 .8 [id number] [facility] 2021-05-06 00:00:00 2021-05-06 00:00:00 Travel 1.2.840.1 91817.1.1 3.104.2.7 .3.438933 .8 1.2.840.114 350.1.13.10 4.2.7.3.698 084.8 [id number] [facility] 2021-05-06 00:00:00 2021-05-06 00:00:00 Travel 1.2.840.1 94730.1.1 3.104.2.7 .3.296252 .8 1.2.840.114 350.1.13.10 4.2.7.3.698 084.8 [id number] [facility] 2021-05-03 22:09:00 2021-05-05 18:30:00 Hospital Encounter Vasiliy Frye Alvah R [facility] 1.2.840.114 350.1.13.10 4.2.7.2.686 [id number] [id number] [facility] 2021-05-03 22:09:00 2021-05-05 18:30:00 Hospital Encounter Vasiliy Frye Alvah R 1.2.840.1 28942.1.1 3.104.2.7 .3.473587 .8 [id number] [facility] 2021-05-03 22:09:00 2021-05-05 18:30:00 Hospital Encounter Vasiliy Frye Alvah R 1.2.840.1 66198.1.1 3.104.2.7 .3.009949 .8 [id number] [facility] 2021-05-03 16:00:00 2021-05-03 16:00:00 Outpatient R VASILIY FRYE [facility] [id number] [facility] 2021-05-03 00:00:00 2021-05-03 00:00:00 Travel 1.2.840.1 72935.1.1 3.104.2.7 .3.629338 .8 1.2.840.114 350.1.13.10 4.2.7.3.698 084.8 [id number] [facility] 2021-05-03 00:00:00 2021-05-03 00:00:00 Travel 1.2.840.1 36229.1.1 3.104.2.7 .3.089399 .8 1.2.840.114 350.1.13.10 4.2.7.3.698 084.8 [id number] [facility] 2021-05-01 19:53:00 2021-05-01 21:40:00 Emergency X MANUEL PATELY [facility] ERT [id number] [facility] 2021-05-01 19:53:00 2021-05-01 21:40:00 Emergency GrantonManuely B [facility] 1.2.840.114 350.1.13.10 4.2.7.2.686 [id number] [id number] [facility] 2021-05-01 19:53:00 2021-05-01 21:40:00 Emergency FavioWilver B 1.2.840.1 65942.1.1 3.104.2.7 .3.369593 .8 [id number] [facility] 2021-05-01 19:53:00 2021-05-01 21:40:00 Emergency Wilver Patel B 1.2.840.1 26922.1.1 3.104.2.7 .3.371467 .8 [id number] [facility] 2021-05-01 00:00:00 2021-05-01 00:00:00 Travel 1.2.840.1 41593.1.1 3.104.2.7 .3.696006 .8 1.2.840.114 350.1.13.10 4.2.7.3.698 084.8 [id number] [facility] 2021-05-01 00:00:00 2021-05-01 00:00:00 Travel 1.2.840.1 22832.1.1 3.104.2.7 .3.852775 .8 1.2.840.114 350.1.13.10 4.2.7.3.698 084.8 [id number] [facility] 2021-04-24 16:30:00 2021-04-24 16:45:00 Administrative Aide Visit Pob, Adc Lab Main Tara Menchaca [facility] 1.2.840.114 350.1.13.10 4.2.7.2.686 [id number] [facility] 2021-04-24 16:30:00 2021-04-24 16:45:00 Administrative Aide Visit Tara Menchaca, Adc Lab Main 1.2.840.1 58947.1.1 3.104.2.7 .3.582189 .8 [id number] [facility] 2021-04-24 16:30:00 2021-04-24 16:45:00 Administrative Aide Visit Tara Menchaca [facility] Main 1.2.840.1 94328.1.1 3.104.2.7 .3.703779 .8 [id number] [facility] 2021-04-24 16:30:00 2021-04-24 16:30:00 Outpatient R TARA MENCHACA [facility] [id number] [facility] 2021-04-24 00:00:00 2021-04-24 00:00:00 Refill Brenda Woodruff [facility] 1.2.840.114 350.1.13.10 4.2.7.2.686 [id number] [facility] 2021-04-24 00:00:00 2021-04-24 00:00:00 Refill Brenda Woodruff 1.2.840.1 85108.1.1 3.104.2.7 .3.864888 .8 [id number] [facility] 2021-04-24 00:00:00 2021-04-24 00:00:00 Refill Brenda Woodruff 1.2.840.1 01524.1.1 3.104.2.7 .3.178116 .8 [id number] [facility] 2021-04-23 00:00:00 2021-04-23 00:00:00 Patient Secure Sebastian Rod [facility] 1.2.840.114 350.1.13.10 4.2.7.2.686 [id number] [id number] [facility] 2021-04-23 00:00:00 2021-04-23 00:00:00 Patient Secure Sebastian Rod 1.2.840.1 65902.1.1 3.104.2.7 .3.678988 .8 [id number] [facility] 2021-04-23 00:00:00 2021-04-23 00:00:00 Patient Secure Sebastian Rod 1.2.840.1 12507.1.1 3.104.2.7 .3.763462 .8 [id number] [facility] 2021-04-18 00:00:00 2021-04-18 00:00:00 Refill Vasiliy Frye [facility] 1.2.840.114 350.1.13.10 4.2.7.2.686 [id number] [facility] 2021-04-18 00:00:00 2021-04-18 00:00:00 Refill Vasiliy Frye 1.2.840.1 55831.1.1 3.104.2.7 .3.250325 .8 [id number] [facility] 2021-04-18 00:00:00 2021-04-18 00:00:00 Refill Vasiliy Frye 1.2.840.1 96880.1.1 3.104.2.7 .3.035952 .8 [id number] [facility] 2021-04-17 00:00:00 2021-04-17 00:00:00 Refill Chica Fryezabeth A [facility] 1.2.840.114 350.1.13.10 4.2.7.2.686 [id number] [id number] [facility] 2021-04-17 00:00:00 2021-04-17 00:00:00 Refill FryeVasiliy 1.2.840.1 29443.1.1 3.104.2.7 .3.003787 .8 [id number] [facility] 2021-04-17 00:00:00 2021-04-17 00:00:00 Refill Vasiliy Frye 1.2.840.1 43426.1.1 3.104.2.7 .3.381609 .8 [id number] [facility] 2021-04-15 00:00:00 2021-04-15 00:00:00 Patient Secure g Sebastian Borjaspatti Chavez [facility] 1.2.840.114 350.1.13.10 4.2.7.2.686 [id number] [id number] [facility] 2021-04-15 00:00:00 2021-04-15 00:00:00 Patient Secure g Sebastian Borjasn 1.2.840.1 00730.1.1 3.104.2.7 .3.000327 .8 [id number] [facility] 2021-04-15 00:00:00 2021-04-15 00:00:00 Patient Secure Sebastian Rodn 1.2.840.1 33857.1.1 3.104.2.7 .3.022414 .8 [id number] [facility] 2021-04-11 10:43:48 2021-04-11 23:59:00 Outpatient RAJAN MONAHAN [facility] [id number] [facility] 2021-04-11 10:30:00 2021-04-11 23:59:00 Hospital Encounter Rajan Vivas [facility] 1.2.840.114 350.1.13.10 4.2.7.2.686 [id number] [facility] 2021-04-11 10:30:00 2021-04-11 23:59:00 Hospital Encounter Rajan Vivas 1.2.840.1 76337.1.1 3.104.2.7 .3.223593 .8 [id number] [facility] 2021-04-11 10:30:00 2021-04-11 23:59:00 Hospital Encounter Rajan Vivas 1.2.840.1 87492.1.1 3.104.2.7 .3.942908 .8 [id number] [facility] 2021-04-11 10:43:48 2021-04-11 10:43:48 Outpatient R RAJAN VIVAS [facility] [id number] [facility] 2021-04-08 15:00:00 2021-04-08 15:51:43 Telemedici ne Visit Vasiliy Frye 1.2.840.1 37833.1.1 3.104.2.7 .3.500080 .8 [id number] [facility] 2021-04-08 15:00:00 2021-04-08 15:51:43 Outpatient R VASILIY FRYE [facility] [id number] [facility] 2021-04-08 15:00:00 2021-04-08 15:51:43 Telemedici ne Visit Vasiliy Frye 1.2.840.1 69600.1.1 3.104.2.7 .3.449881 .8 [id number] [facility] 2021-04-08 15:00:00 2021-04-08 15:00:00 Outpatient VASILIY ROMERO [facility] [id number] [facility] 2021-04-08 15:00:00 2021-04-08 15:00:00 Outpatient VASILIY ROMERO [facility] [id number] [facility] 2021-04-05 19:24:36 2021-04-05 23:59:00 Hospital Encounter Rajan Vivas 1.2.840.1 51893.1.1 3.104.2.7 .3.158138 .8 [id number] [facility] 2021-04-05 19:24:36 2021-04-05 23:59:00 Hospital Encounter Rajan Vivas 1.2.840.1 35837.1.1 3.104.2.7 .3.111463 .8 [id number] [facility] 2021-04-05 00:00:00 2021-04-05 23:59:00 Outpatient RAJAN MONAHAN [facility] [id number] [facility] 2021-04-02 00:00:00 2021-04-02 00:00:00 Patient Secure Msg TaniTuSebastian Alicea [facility] 1.2.840.114 350.1.13.10 4.2.7.2.686 [id number] [facility] 2021-04-02 00:00:00 2021-04-02 00:00:00 Patient Secure Msg Sebastian Borjas 1.2.840.1 56746.1.1 3.104.2.7 .3.425956 .8 [id number] [facility] 2021-04-02 00:00:00 2021-04-02 00:00:00 Patient Secure Msg TaniTuSaadi, Yamam Ismail Scott 1.2.840.1 10582.1.1 3.104.2.7 .3.926458 .8 [id number] [facility] 2021-04-01 14:45:00 2021-04-01 15:00:00 Administrative Aide Visit Vls-Lab Rajan Vivas [facility] 1.2.840.114 350.1.13.10 4.2.7.2.686 [id number] [facility] 2021-04-01 14:45:00 2021-04-01 15:00:00 Administrative Aide Visit Rajan Vivas Vls-Lab 1.2.840.1 13244.1.1 3.104.2.7 .3.331877 .8 [id number] [facility] 2021-04-01 14:45:00 2021-04-01 15:00:00 Administrative Aide Visit Rajan Vivas Vls-Lab 1.2.840.1 56141.1.1 3.104.2.7 .3.885054 .8 [id number] [facility] 2021-04-01 14:45:00 2021-04-01 15:00:00 Administrative Aide Visit Rajan Vivas Vls-Lab 1.2.840.1 83839.1.1 3.104.2.7 .3.333906 .8 [id number] [facility] 2021-04-01 14:00:00 2021-04-01 14:41:28 Outpatient R RAJAN VIVAS [facility] [id number] [facility] 2021-04-01 14:00:00 2021-04-01 14:41:28 Office Visit Rajan Vivas Yamam Ismail Soliman 1.2.840.1 46264.1.1 3.104.2.7 .3.019433 .8 [id number] [facility] 2021-04-01 14:00:00 2021-04-01 14:41:28 Outpatient R RAJAN VIVAS [facility] [id number] [facility] 2021-04-01 14:00:00 2021-04-01 14:41:28 Office Visit Rajan Vivas Cady Borjasmelchor Jack Chavez 1.2.840.1 44053.1.1 3.104.2.7 .3.457039 .8 [id number] [facility] 2021-04-01 14:00:00 2021-04-01 14:41:28 Office Visit Rajan Vivas Sebastian Rouse 1.2.840.1 62017.1.1 3.104.2.7 .3.051545 .8 [id number] [facility] 2021-04-01 00:00:00 2021-04-01 00:00:00 Travel 1.2.840.1 12848.1.1 3.104.2.7 .3.878347 .8 1.2.840.114 350.1.13.10 4.2.7.3.698 084.8 [id number] [facility] 2021-04-01 00:00:00 2021-04-01 00:00:00 Travel 1.2.840.1 86230.1.1 3.104.2.7 .3.709989 .8 1.2.840.114 350.1.13.10 4.2.7.3.698 084.8 [id number] [facility] 2021-04-01 00:00:00 2021-04-01 00:00:00 Travel 1.2.840.1 12996.1.1 3.104.2.7 .3.876395 .8 1.2.840.114 350.1.13.10 4.2.7.3.698 084.8 [id number] [facility] 2021-03-28 16:00:00 2021-03-28 16:30:00 Office Visit Florence Velásquez 'Eed Dwight Valencia [facility] 1.2.840.114 350.1.13.10 4.2.7.2.686 [id number] 072 [id number] [facility] 2021-03-28 16:00:00 2021-03-28 16:30:00 Office Visit Dwight Valencia Obada Hisham JovitaEed 1.2.840.1 12027.1.1 3.104.2.7 .3.409013 .8 [id number] [facility] 2021-03-28 16:00:00 2021-03-28 16:30:00 Office Visit Dwight Valencia Obada Hisham JovtiaEed 1.2.840.1 16689.1.1 3.104.2.7 .3.313804 .8 [id number] [facility] 2021-03-28 16:00:00 2021-03-28 16:00:00 Outpatient Connie VALENCIA DWIGHT [facility] [id number] [facility] 2021-03-28 16:00:00 2021-03-28 16:00:00 Outpatient Connie NAVIN DWIGHT [facility] [id number] [facility] 2021-03-28 08:30:00 2021-03-28 09:48:13 Outpatient Connie NAVIN DWIGHT [facility] [id number] [facility] 2021-03-28 08:30:00 2021-03-28 08:30:00 Outpatient Connie NAVINDWIGHT [facility] [id number] [facility] 2021-03-28 00:00:00 2021-03-28 00:00:00 Travel 1.2.840.1 70226.1.1 3.104.2.7 .3.728824 .8 1.2.840.114 350.1.13.10 4.2.7.3.698 084.8 [id number] [facility] 2021-03-28 00:00:00 2021-03-28 00:00:00 Travel 1.2.840.1 76000.1.1 3.104.2.7 .3.548616 .8 1.2.840.114 350.1.13.10 4.2.7.3.698 084.8 [id number] [facility] 2021-03-28 00:00:00 2021-03-28 00:00:00 Travel 1.2.840.1 21445.1.1 3.104.2.7 .3.731855 .8 1.2.840.114 350.1.13.10 4.2.7.3.698 084.8 [id number] [facility] 2021-03-26 13:00:00 2021-03-26 13:35:27 Outpatient R DAMARIS HENDRIX [facility] [id number] [facility] 2021-03-26 13:00:00 2021-03-26 13:35:27 Office Visit Melanie Barrera Vivian L [facility] 1.2.840.114 350.1.13.10 4.2.7.2.686 [id number] [facility] 2021-03-26 13:00:00 2021-03-26 13:35:27 Office Visit Damaris Hendrix Nancy 1.2.840.1 83767.1.1 3.104.2.7 .3.729090 .8 [id number] [facility] 2021-03-26 13:00:00 2021-03-26 13:35:27 Office Visit Damaris Hendrix Nancy 1.2.840.1 70899.1.1 3.104.2.7 .3.930098 .8 [id number] [facility] 2021-03-26 13:00:00 2021-03-26 13:35:27 Office Visit Damaris Hendrix Nancy 1.2.840.1 46794.1.1 3.104.2.7 .3.660885 .8 [id number] [facility] 2021-03-26 13:00:00 2021-03-26 13:00:00 Outpatient R DAMARIS HENDRIX [facility] [id number] [facility] 2021-03-26 00:00:00 2021-03-26 00:00:00 Travel 1.2.840.1 81750.1.1 3.104.2.7 .3.310939 .8 1.2.840.114 350.1.13.10 4.2.7.3.698 084.8 [id number] [facility] 2021-03-26 00:00:00 2021-03-26 00:00:00 RefVasiliy Lebron A 1.2.840.1 54961.1.1 3.104.2.7 .3.372544 .8 [id number] [facility] 2021-03-26 00:00:00 2021-03-26 00:00:00 Vasiliy Valentin A 1.2.840.1 55609.1.1 3.104.2.7 .3.398861 .8 [id number] [facility] 2021-03-26 00:00:00 2021-03-26 00:00:00 Travel 1.2.840.1 40026.1.1 3.104.2.7 .3.565584 .8 1.2.840.114 350.1.13.10 4.2.7.3.698 084.8 [id number] [facility] 2021-03-26 00:00:00 2021-03-26 00:00:00 Travel 1.2.840.1 21454.1.1 3.104.2.7 .3.804397 .8 1.2.840.114 350.1.13.10 4.2.7.3.698 084.8 [id number] [facility] 2021-03-26 00:00:00 2021-03-26 00:00:00 Refill Vasiliy Frye 1.2.840.1 80470.1.1 3.104.2.7 .3.107809 .8 [id number] [facility] 2021-03-18 16:20:00 2021-03-18 17:00:00 Telemedici ne Visit Vasiliy Frye [facility] 1.2.840.114 350.1.13.10 4.2.7.2.686 [id number] [facility] 2021-03-18 16:20:00 2021-03-18 17:00:00 Telemedici ne Visit Vasiliy Frye 1.2.840.1 07080.1.1 3.104.2.7 .3.912960 .8 [id number] [facility] 2021-03-18 16:20:00 2021-03-18 17:00:00 Telemedici ne Visit Vasiliy Frye 1.2.840.1 53461.1.1 3.104.2.7 .3.786026 .8 [id number] [facility] 2021-03-18 16:20:00 2021-03-18 17:00:00 Telemedici ne Visit Vasiliy Frye 1.2.840.1 63482.1.1 3.104.2.7 .3.006330 .8 [id number] [facility] 2021-03-18 16:20:00 2021-03-18 16:20:00 Outpatient R GHASSAN FRYETH [facility] [id number] [facility] 2021-03-18 16:20:00 2021-03-18 16:20:00 Outpatient CHICA ROMEROZABETH [facility] [id number] [facility] 2021-03-15 00:00:00 2021-03-15 00:00:00 [facility] 1.2.840.114 350.1.13.10 4.2.7.2.686 [id number] [facility] 2021-03-15 00:00:00 2021-03-15 00:00:00 Refill Vasiliy Frye 1.2.840.1 75145.1.1 3.104.2.7 .3.432299 .8 [id number] [facility] 2021-03-15 00:00:00 2021-03-15 00:00:00 Refill Vasiliy Frye 1.2.840.1 58360.1.1 3.104.2.7 .3.834772 .8 [id number] [facility] 2021-03-15 00:00:00 2021-03-15 00:00:00 Refill Vasiliy Frye 1.2.840.1 94522.1.1 3.104.2.7 .3.878294 .8 [id number] [facility] 2021-03-11 14:00:00 2021-03-11 14:00:00 Outpatient Connie FRYE VASILIY [facility] [id number] [facility] 2021-02-26 14:00:00 2021-02-26 14:00:00 Outpatient YENNY BAEZ STRAHIL [facility] [id number] [facility] 2021-02-26 14:00:00 2021-02-26 14:00:00 Outpatient R YENNY CHRISTIANSON STRAHIL [facility] [id number] [facility] 2021-02-25 10:00:00 2021-02-26 10:55:50 Outpatient R FRYECHICAVASILIY [facility] [id number] [facility] 2021-02-25 10:00:00 2021-02-26 10:55:50 Telemedici ne Visit Frye Vasiliy A 1.2.840.1 98335.1.1 3.104.2.7 .3.988419 .8 [id number] [facility] 2021-02-25 10:00:00 2021-02-26 10:55:50 Telemedici ne Visit FryeChicaVasiliy A 1.2.840.1 89012.1.1 3.104.2.7 .3.174996 .8 [id number] [facility] 2021-02-25 09:10:01 2021-02-26 10:55:50 Telemedici ne Visit Melva Vasiliy Rodríguez [facility] 1.2.840.114 350.1.13.10 4.2.7.2.686 [id number] [facility] 2021-02-26 00:00:00 2021-02-26 00:00:00 Case Management Ghassan Fryemartha Rodríguez 1.2.840.1 74728.1.1 3.104.2.7 .3.595614 .8 [id number] [facility] 2021-02-26 00:00:00 2021-02-26 00:00:00 Case Management Frye, Vasiliy A 1.2.840.1 98846.1.1 3.104.2.7 .3.243009 .8 [id number] [facility] 2021-02-26 00:00:00 2021-02-26 00:00:00 Case Management Vasiliy Frye 1.2.840.1 78191.1.1 3.104.2.7 .3.567570 .8 [id number] [facility] 2021-02-26 00:00:00 2021-02-26 00:00:00 Case Management Vasiliy Frye 1.2.840.1 61169.1.1 3.104.2.7 .3.254110 .8 [id number] [facility] 2021-02-25 16:20:00 2021-02-25 16:20:00 Outpatient VASILIY ROMERO [facility] [id number] [facility] 2021-02-25 10:00:00 2021-02-25 10:00:00 Outpatient VASILIY ROMERO [facility] [id number] [facility] 2021-02-22 16:15:00 2021-02-22 16:15:00 Outpatient R [facility] [id number] [facility] 2021-02-22 16:15:00 2021-02-22 16:15:00 Outpatient R [facility] [id number] [facility] 2021-02-22 09:19:00 2021-02-22 12:26:00 Outpatient FRANCISCO JAVIER GERBER [facility] JANICE [id number] [facility] 2021-02-22 09:19:00 2021-02-22 12:26:00 Hospital Encounter Francisco Javier Fuentes [facility] 1.2.840.114 350.1.13.10 4.2.7.2.686 [id number] [facility] 2021-02-22 09:19:00 2021-02-22 12:26:00 Outpatient FRANCISCO JAVIER GERBER [facility] JANICE [id number] [facility] 2021-02-22 09:19:00 2021-02-22 12:26:00 Hospital Encounter Francisco Javier Fuentes 1.2.840.1 39542.1.1 3.104.2.7 .3.466092 .8 [id number] [facility] 2021-02-22 09:19:00 2021-02-22 12:26:00 Hospital Encounter Francisco Javier Fuentes 1.2.840.1 84499.1.1 3.104.2.7 .3.259701 .8 [id number] [facility] 2021-02-22 09:19:00 2021-02-22 12:26:00 Hospital Encounter Francisco Javier Fuentes 1.2.840.1 50085.1.1 3.104.2.7 .3.478426 .8 [id number] [facility] 2021-02-22 10:26:00 2021-02-22 11:49:00 Surgery Francisco Javier Fuentes 1.2.840.1 04452.1.1 3.104.2.7 .3.223319 .8 [id number] [facility] 2021-02-22 10:26:00 2021-02-22 11:49:00 Surgery Francisco Javier Fuentes 1.2.840.1 76933.1.1 3.104.2.7 .3.575506 .8 [id number] [facility] 2021-02-22 10:26:00 2021-02-22 11:49:00 Surgery Francisco Javier Fuentes 1.2.840.1 98163.1.1 3.104.2.7 .3.246199 .8 [id number] [facility] 2021-02-22 10:56:00 2021-02-22 11:37:00 Anesthesia Event Sonia Galvez Brian 1.2.840.1 65154.1.1 3.104.2.7 .3.418034 .8 [id number] [facility] 2021-02-22 10:56:00 2021-02-22 11:37:00 Anesthesia Event Sonia GalvezTriKathie 1.2.840.1 20217.1.1 3.104.2.7 .3.213967 .8 [id number] [facility] 2021-02-22 10:56:00 2021-02-22 11:37:00 Anesthesia Event Sonia Galvez Kathie 1.2.840.1 22466.1.1 3.104.2.7 .3.000460 .8 [id number] [facility] 2021-02-22 00:00:00 2021-02-22 00:00:00 Orders Only Doctor Unassigned, [place] 1.2.840.1 59126.1.1 3.104.2.7 .3.339095 .8 [id number] [facility] 2021-02-22 00:00:00 2021-02-22 00:00:00 Orders Only Doctor Unassigned, [place] 1.2.840.1 44298.1.1 3.104.2.7 .3.051671 .8 [id number] [facility] 2021-02-22 00:00:00 2021-02-22 00:00:00 Orders Only Doctor Unassigned, [place] 1.2.840.1 93852.1.1 3.104.2.7 .3.320431 .8 [id number] [facility] 2021-02-21 15:34:13 2021-02-21 15:49:13 Laboratory Only Only, Adc Test Francisco Javier Fuentes [facility] 1.2.840.114 350.1.13.10 4.2.7.2.686 [id number] [facility] 2021-02-21 15:34:13 2021-02-21 15:49:13 Laboratory Only Francisco Javier Fuentes Only, Adc Test 1.2.840.1 58018.1.1 3.104.2.7 .3.364826 .8 [id number] [facility] 2021-02-21 08:45:00 2021-02-21 09:00:00 Laboratory Only Francisco Javier Fuentes Only, Adc Test 1.2.840.1 95271.1.1 3.104.2.7 .3.882819 .8 [id number] [facility] 2021-02-21 08:45:00 2021-02-21 09:00:00 Laboratory Only Francisco Javier Fuentes Only, Adc Test 1.2.840.1 61290.1.1 3.104.2.7 .3.591932 .8 [id number] [facility] 2021-02-21 08:45:00 2021-02-21 08:45:00 Outpatient R ALFREDOFRANCISCO JAVIER [facility] [id number] [facility] 2021-02-21 00:00:00 2021-02-21 00:00:00 Orders Only Doctor Unassigned, [place] [facility] 1.2.840.114 350.1.13.10 4.2.7.2.686 [id number] [facility] 2021-02-21 00:00:00 2021-02-21 00:00:00 Orders Only Doctor Unassigned, [place] 1.2.840.1 02056.1.1 3.104.2.7 .3.955653 .8 [id number] [facility] 2021-02-21 00:00:00 2021-02-21 00:00:00 Travel 1.2.840.1 46887.1.1 3.104.2.7 .3.244917 .8 1.2.840.114 350.1.13.10 4.2.7.3.698 084.8 [id number] [facility] 2021-02-21 00:00:00 2021-02-21 00:00:00 Orders Only Doctor Unassigned, [place] 1.2.840.1 77437.1.1 3.104.2.7 .3.001665 .8 [id number] [facility] 2021-02-21 00:00:00 2021-02-21 00:00:00 Travel 1.2.840.1 91421.1.1 3.104.2.7 .3.786496 .8 1.2.840.114 350.1.13.10 4.2.7.3.698 084.8 [id number] [facility] 2021-02-21 00:00:00 2021-02-21 00:00:00 Orders Only Doctor Unassigned, [place] 1.2.840.1 66681.1.1 3.104.2.7 .3.766177 .8 [id number] [facility] 2021-02-21 00:00:00 2021-02-21 00:00:00 Travel 1.2.840.1 67296.1.1 3.104.2.7 .3.607045 .8 1.2.840.114 350.1.13.10 4.2.7.3.698 084.8 [id number] [facility] 2021-02-19 16:00:00 2021-02-19 16:00:00 Outpatient VASILIY ROMERO [facility] [id number] [facility] 2021-02-15 10:33:39 2021-02-15 11:31:59 Office Visit Francisco [facility] 1.2.840.114 350.1.13.10 4.2.7.2.686 [id number] [facility] 2021-02-15 10:33:39 2021-02-15 11:31:59 Office Visit Francisco Javier Fuentes 1.2.840.1 59696.1.1 3.104.2.7 .3.117103 .8 [id number] [facility] 2021-02-15 10:30:00 2021-02-15 11:31:59 Outpatient FRANCISCO JAVIER [facility] [id number] [facility] 2021-02-15 10:30:00 2021-02-15 11:31:59 Outpatient FRANCISCO JAVIER [facility] [id number] [facility] 2021-02-15 10:30:00 2021-02-15 11:31:59 Office Visit Francisco Javier Fuentes 1.2.840.1 97556.1.1 3.104.2.7 .3.570158 .8 [id number] [facility] 2021-02-15 10:30:00 2021-02-15 11:31:59 Office Visit AlfredoFrancisco Javier 1.2.840.1 21674.1.1 3.104.2.7 .3.367101 .8 [id number] [facility] 2021-02-15 10:30:00 2021-02-15 10:30:00 Outpatient FRANCISCO JAVIER [facility] [id number] [facility] 2021-02-15 10:30:00 2021-02-15 10:30:00 Outpatient FRANCISCO JAVIER [facility] [id number] [facility] 2021-02-15 00:00:00 2021-02-15 00:00:00 Prep For Surgery Ann Marie Dyer [facility] 1.2.840.114 350.1.13.10 4.2.7.2.686 [id number] [facility] 2021-02-15 00:00:00 2021-02-15 00:00:00 Patient Secure [facility]iliy [facility] 1.2.840.114 350.1.13.10 4.2.7.2.686 [id number] 231 [id number] [facility] 2021-02-15 00:00:00 2021-02-15 00:00:00 Orders Only Doctor Unassigned, [place] [facility] 1.2.840.114 350.1.13.10 4.2.7.2.686 [id number] 009 [id number] [facility] 2021-02-15 00:00:00 2021-02-15 00:00:00 Orders Only Doctor Unassigned, [place] 1.2.840.1 22022.1.1 3.104.2.7 .3.927349 .8 [id number] [facility] 2021-02-15 00:00:00 2021-02-15 00:00:00 Prep For Surgery Ann Marie Dyer 1.2.840.1 09782.1.1 3.104.2.7 .3.802039 .8 [id number] [facility] 2021-02-15 00:00:00 2021-02-15 00:00:00 Travel 1.2.840.1 42832.1.1 3.104.2.7 .3.872893 .8 1.2.840.114 350.1.13.10 4.2.7.3.698 084.8 [id number] [facility] 2021-02-15 00:00:00 2021-02-15 00:00:00 Patient Secure Msg FryeGhassan cappsmartha Rodríguez 1.2.840.1 85718.1.1 3.104.2.7 .3.286828 .8 [id number] [facility] 2021-02-15 00:00:00 2021-02-15 00:00:00 Orders Only Doctor Unassigned, [place] 1.2.840.1 12481.1.1 3.104.2.7 .3.865716 .8 [id number] [facility] 2021-02-15 00:00:00 2021-02-15 00:00:00 Prep For Surgery Ann Marie Dyer A 1.2.840.1 77865.1.1 3.104.2.7 .3.413652 .8 [id number] [facility] 2021-02-15 00:00:00 2021-02-15 00:00:00 Travel 1.2.840.1 14378.1.1 3.104.2.7 .3.285566 .8 1.2.840.114 350.1.13.10 4.2.7.3.698 084.8 [id number] [facility] 2021-02-15 00:00:00 2021-02-15 00:00:00 Patient Secure Vasiliy Frye 1.2.840.1 95328.1.1 3.104.2.7 .3.055076 .8 [id number] [facility] 2021-02-15 00:00:00 2021-02-15 00:00:00 Orders Only Doctor Unassigned, [place] 1.2.840.1 28653.1.1 3.104.2.7 .3.630574 .8 [id number] [facility] 2021-02-15 00:00:00 2021-02-15 00:00:00 Prep For Surgery Ann Marie Dyer A 1.2.840.1 27067.1.1 3.104.2.7 .3.210607 .8 [id number] [facility] 2021-02-15 00:00:00 2021-02-15 00:00:00 Travel 1.2.840.1 73226.1.1 3.104.2.7 .3.830302 .8 1.2.840.114 350.1.13.10 4.2.7.3.698 084.8 [id number] [facility] 2021-02-15 00:00:00 2021-02-15 00:00:00 Patient Secure Vasiliy Frye 1.2.840.1 95274.1.1 3.104.2.7 .3.137478 .8 [id number] [facility] 2021-02-14 14:15:00 2021-02-14 14:15:00 Outpatient R CHICA FRYEZABETH [facility] [id number] [facility] 2021-02-14 14:15:00 2021-02-14 14:15:00 Administrative Aide Visit Chica Fryezabemartha Rodríguez 2, [facility] Lab 1.2.840.1 98956.1.1 3.104.2.7 .3.205505 .8 [id number] [facility] 2021-02-14 14:15:00 2021-02-14 14:15:00 Administrative Aide Visit Melva Vasiliy A 2, [facility] Lab 1.2.840.1 82369.1.1 3.104.2.7 .3.044818 .8 [id number] [facility] 2021-02-14 13:30:01 2021-02-14 13:52:09 Administrative Aide Visit 2, [facility] Lab Vasiliy Frye [facility] 1.2.840.114 350.1.13.10 4.2.7.2.686 [id number] [facility] 2021-02-14 13:30:01 2021-02-14 13:52:09 Administrative Aide Visit Chica Fryezabritta Rodríguez 2, [facility] Lab 1.2.840.1 71439.1.1 3.104.2.7 .3.744208 .8 [id number] [facility] 2021-02-14 11:27:56 2021-02-14 13:07:39 Office Visit Frye Vasiliy Marcos 1.2.840.1 75209.1.1 3.104.2.7 .3.605930 .8 [id number] [facility] 2021-02-14 11:20:00 2021-02-14 13:07:39 Outpatient R VASILIY FRYE [facility] [id number] [facility] 2021-02-14 11:20:00 2021-02-14 13:07:39 Outpatient R VASILIY FRYE [facility] [id number] [facility] 2021-02-14 11:20:00 2021-02-14 13:07:39 Office Visit Vasiliy Frye 1.2.840.1 03014.1.1 3.104.2.7 .3.165323 .8 [id number] [facility] 2021-02-14 11:20:00 2021-02-14 13:07:39 Office Visit Vasiliy Frye 1.2.840.1 30756.1.1 3.104.2.7 .3.068823 .8 [id number] [facility] 2021-02-14 00:00:00 2021-02-14 00:00:00 Letter (Out) Vasiliy Frye [facility] 1.2.840.114 350.1.13.10 4.2.7.2.686 [id number] 044 [id number] [facility] 2021-02-14 00:00:00 2021-02-14 00:00:00 Letter (Out) Vasiliy Frye 1.2.840.1 85210.1.1 3.104.2.7 .3.672567 .8 [id number] [facility] 2021-02-14 00:00:00 2021-02-14 00:00:00 Letter (Out) Vasiliy Frye 1.2.840.1 89287.1.1 3.104.2.7 .3.185843 .8 [id number] [facility] 2021-02-14 00:00:00 2021-02-14 00:00:00 Letter (Out) Vasiliy Frye 1.2.840.1 47136.1.1 3.104.2.7 .3.190121 .8 [id number] [facility] 2021-02-12 09:30:00 2021-02-12 10:00:00 Office Visit Rajan Vivas Kanana 1.2.840.1 45486.1.1 3.104.2.7 .3.218256 .8 [id number] [facility] 2021-02-12 09:30:00 2021-02-12 10:00:00 Office Visit Rajan Vivas Kanana 1.2.840.1 15760.1.1 3.104.2.7 .3.564470 .8 [id number] [facility] 2021-02-12 09:16:10 2021-02-12 09:46:10 Office Visit Logan Chaves Joseph Marc [facility] 1.2.840.114 350.1.13.10 4.2.7.2.686 [id number] 071 [id number] [facility] 2021-02-12 09:16:10 2021-02-12 09:46:10 Office Visit Logan Chaves Joseph Marc [facility] 1.2.840.114 350.1.13.10 4.2.7.2.686 [id number] 071 [id number] [facility] 2021-02-12 09:16:10 2021-02-12 09:46:10 Office Visit Rajan Vivas Kanana 1.2.840.1 13553.1.1 3.104.2.7 .3.006479 .8 [id number] [facility] 2021-02-12 09:30:00 2021-02-12 09:30:00 Outpatient RAJAN MONAHAN [facility] [id number] [facility] 2021-02-12 00:00:00 2021-02-12 00:00:00 Telephone Vasiliy Frye [facility] 1.2.840.114 350.1.13.10 4.2.7.2.686 [id number] 044 [id number] [facility] 2021-02-12 00:00:00 2021-02-12 00:00:00 Telephone Vasiliy Frye 1.2.840.1 88098.1.1 3.104.2.7 .3.039307 .8 [id number] [facility] 2021-02-12 00:00:00 2021-02-12 00:00:00 Travel 1.2.840.1 13399.1.1 3.104.2.7 .3.564585 .8 1.2.840.114 350.1.13.10 4.2.7.3.698 084.8 [id number] [facility] 2021-02-12 00:00:00 2021-02-12 00:00:00 Telephone Vasiliy Frye 1.2.840.1 12235.1.1 3.104.2.7 .3.693423 .8 [id number] [facility] 2021-02-12 00:00:00 2021-02-12 00:00:00 Travel 1.2.840.1 08889.1.1 3.104.2.7 .3.547041 .8 1.2.840.114 350.1.13.10 4.2.7.3.698 084.8 [id number] [facility] 2021-02-12 00:00:00 2021-02-12 00:00:00 Telephone Vasiliy Frye 1.2.840.1 76569.1.1 3.104.2.7 .3.563003 .8 [id number] [facility] 2021-02-12 00:00:00 2021-02-12 00:00:00 Travel 1.2.840.1 91487.1.1 3.104.2.7 .3.130744 .8 1.2.840.114 350.1.13.10 4.2.7.3.698 084.8 [id number] [facility] 2021-02-07 00:00:00 2021-02-07 00:00:00 Patient Secure Msg Vasiliy Frye [facility] 1.2.840.114 350.1.13.10 4.2.7.2.686 [id number] 044 [id number] [facility] 2021-02-07 00:00:00 2021-02-07 00:00:00 Patient Secure Msg Vasiliy Frye 1.2.840.1 46691.1.1 3.104.2.7 .3.983610 .8 [id number] [facility] 2021-02-07 00:00:00 2021-02-07 00:00:00 Patient Secure Msg Vasiliy Frye 1.2.840.1 52169.1.1 3.104.2.7 .3.763272 .8 [id number] [facility] 2021-02-07 00:00:00 2021-02-07 00:00:00 Patient Secure Msg Vasiliy Frye 1.2.840.1 24364.1.1 3.104.2.7 .3.972659 .8 [id number] [facility] 2021-02-05 00:00:00 2021-02-05 00:00:00 Refill Vasiliy Frye [facility] 1.2.840.114 350.1.13.10 4.2.7.2.686 [id number] 231 [id number] [facility] 2021-02-05 00:00:00 2021-02-05 00:00:00 Refill Vasiliy Frye A 1.2.840.1 24127.1.1 3.104.2.7 .3.138818 .8 [id number] [facility] 2021-02-05 00:00:00 2021-02-05 00:00:00 Refill Vasiliy Frye A 1.2.840.1 15767.1.1 3.104.2.7 .3.945679 .8 [id number] [facility] 2021-02-05 00:00:00 2021-02-05 00:00:00 Refill FryeVasilyi A 1.2.840.1 01566.1.1 3.104.2.7 .3.956010 .8 [id number] [facility] 2021-01-31 21:31:00 2021-01-31 23:41:00 Emergency X SHAKA BURGESS [facility] ERT [id number] [facility] 2021-01-31 21:31:00 2021-01-31 23:41:00 Emergency Shaka Burgess [facility] 1..840.114 350.1.13.10 4.2.7.2.686 [id number] 084 [id number] [facility] 2021-01-31 21:31:00 2021-01-31 23:41:00 Emergency X SHAKA BURGESS [facility] ERT [id number] [facility] 2021-01-31 21:31:00 2021-01-31 23:41:00 Emergency Shaka Burgess 1.2.840.1 60462.1.1 3.104.2.7 .3.816609 .8 [id number] [facility] 2021-01-31 21:31:00 2021-01-31 23:41:00 Emergency Shaka Burgess 1.2.840.1 56801.1.1 3.104.2.7 .3.826995 .8 [id number] [facility] 2021-01-31 21:31:00 2021-01-31 23:41:00 Emergency Shaka Burgess 1.2.840.1 91447.1.1 3.104.2.7 .3.454929 .8 [id number] [facility] 2021-01-31 00:00:00 2021-01-31 00:00:00 Travel 1.2.840.1 67654.1.1 3.104.2.7 .3.766459 .8 1.2.840.114 350.1.13.10 4.2.7.3.698 084.8 [id number] [facility] 2021-01-31 00:00:00 2021-01-31 00:00:00 Travel 1.2.840.1 64869.1.1 3.104.2.7 .3.015351 .8 1.2.840.114 350.1.13.10 4.2.7.3.698 084.8 [id number] [facility] 2021-01-31 00:00:00 2021-01-31 00:00:00 Travel 1.2.840.1 28551.1.1 3.104.2.7 .3.103797 .8 1.2.840.114 350.1.13.10 4.2.7.3.698 084.8 [id number] [facility] 2021-01-30 00:00:00 2021-01-30 00:00:00 Telephone [facility]e [facility] 1.2.840.114 350.1.13.10 4.2.7.2.686 [id number] 044 [id number] [facility] 2021-01-30 00:00:00 2021-01-30 00:00:00 Telephone Chica Fryezabritta Rodríguez 1.2.840.1 04193.1.1 3.104.2.7 .3.153637 .8 [id number] [facility] 2021-01-30 00:00:00 2021-01-30 00:00:00 Telephone Frye Vasiliy A 1.2.840.1 40099.1.1 3.104.2.7 .3.998403 .8 [id number] [facility] 2021-01-30 00:00:00 2021-01-30 00:00:00 Telephone Vasiliy Frye Marcos 1.2.840.1 70649.1.1 3.104.2.7 .3.898472 .8 [id number] [facility] 2021-01-29 16:20:00 2021-01-29 16:48:42 Outpatient R VASILIY FRYE [facility] [id number] [facility] 2021-01-29 16:20:00 2021-01-29 16:48:42 Telemedici ne Visit Vasiliy Frye Marcos 1.2.840.1 82387.1.1 3.104.2.7 .3.115007 .8 [id number] [facility] 2021-01-29 16:20:00 2021-01-29 16:48:42 Telemedici ne Visit Vasiliy Frye Marcos 1.2.840.1 89570.1.1 3.104.2.7 .3.847302 .8 [id number] [facility] 2021-01-29 15:23:45 2021-01-29 16:48:42 Telemedici ne Visit Vasiliy Frye [facility] 1..840.114 350.1.13.10 4.2.7.2.686 [id number] [facility] 2021-01-29 15:23:45 2021-01-29 16:48:42 Telemedici ne Visit Vasiliy Frye 1..840.1 51632.1.1 3.104.2.7 .3.658018 .8 [id number] [facility] 2021-01-29 16:20:00 2021-01-29 16:20:00 Outpatient R VASILIY FRYE [facility] [id number] [facility] 2021-01-25 13:19:00 2021-01-25 15:33:00 Emergency Estelita Younger R [facility] 1..840.114 350.1.13.10 4.2.7.2.686 [id number] 084 [id number] [facility] 2021-01-25 13:19:00 2021-01-25 15:33:00 Emergency X ESTELITA [facility]ER [facility] ERT [id number] [facility] 2021-01-25 13:19:00 2021-01-25 15:33:00 Emergency Estelita Younger R 1.2.840.1 76378.1.1 3.104.2.7 .3.895149 .8 [id number] [facility] 2021-01-25 13:19:00 2021-01-25 15:33:00 Emergency Estelita Younger R 1.2.840.1 22255.1.1 3.104.2.7 .3.123109 .8 [id number] [facility] 2021-01-25 13:19:00 2021-01-25 15:33:00 Emergency Estelita Younger R 1.2.840.1 01243.1.1 3.104.2.7 .3.450475 .8 [id number] [facility] 2021-01-25 10:40:00 2021-01-25 13:13:46 Outpatient R VASILIY FRYE [facility] [id number] [facility] 2021-01-25 10:40:00 2021-01-25 13:13:46 Office Visit MelvaChicaVasiliy A 1.2.840.1 79728.1.1 3.104.2.7 .3.411066 .8 [id number] [facility] 2021-01-25 10:40:00 2021-01-25 13:13:46 Office Visit MelvaChicaVasiliy A 1.2.840.1 45326.1.1 3.104.2.7 .3.386772 .8 [id number] [facility] 2021-01-25 10:28:45 2021-01-25 13:13:46 Office Visit Melva Vasiliy Marcos [facility] 1.2.840.114 350.1.13.10 4.2.7.2.686 [id number] 231 [id number] [facility] 2021-01-25 10:28:45 2021-01-25 13:13:46 Office Visit MelvaChicaVasiliy A 1.2.840.1 84345.1.1 3.104.2.7 .3.626273 .8 [id number] [facility] 2021-01-25 10:40:00 2021-01-25 10:40:00 Outpatient R MELVACHICAVASILIY [facility] [id number] [facility] 2021-01-25 00:00:00 2021-01-25 00:00:00 Patient Secure Msg Melva Vasiliy Marcos [facility] 1.2.840.114 350.1.13.10 4.2.7.2.686 [id number] 231 [id number] [facility] 2021-01-25 00:00:00 2021-01-25 00:00:00 Travel 1.2.840.1 65111.1.1 3.104.2.7 .3.084661 .8 1.2.840.114 350.1.13.10 4.2.7.3.698 084.8 [id number] [facility] 2021-01-25 00:00:00 2021-01-25 00:00:00 Patient Secure Msg Chica Fryezabemartha Rodríguez 1.2.840.1 53488.1.1 3.104.2.7 .3.101757 .8 [id number] [facility] 2021-01-25 00:00:00 2021-01-25 00:00:00 Travel 1.2.840.1 11463.1.1 3.104.2.7 .3.477317 .8 1.2.840.114 350.1.13.10 4.2.7.3.698 084.8 [id number] [facility] 2021-01-25 00:00:00 2021-01-25 00:00:00 Patient Secure g Vasiliy Frye 1.2.840.1 00819.1.1 3.104.2.7 .3.403669 .8 [id number] [facility] 2021-01-25 00:00:00 2021-01-25 00:00:00 Travel 1.2.840.1 23834.1.1 3.104.2.7 .3.576939 .8 1.2.840.114 350.1.13.10 4.2.7.3.698 084.8 [id number] [facility] 2021-01-25 00:00:00 2021-01-25 00:00:00 Patient Secure Msg Frye, Vasiliy A 1.2.840.1 45542.1.1 3.104.2.7 .3.030078 .8 [id number] [facility] 2021-01-15 00:00:00 2021-01-15 00:00:00 Orders Only Doctor Unassigned, [place] [facility] 1.2.840.114 350.1.13.10 4.2.7.2.686 [id number] 009 [id number] [facility] 2021-01-15 00:00:00 2021-01-15 00:00:00 Orders Only Doctor Unassigned, [place] 1.2.840.1 67815.1.1 3.104.2.7 .3.423387 .8 [id number] [facility] 2021-01-15 00:00:00 2021-01-15 00:00:00 Orders Only Doctor Unassigned, [place] 1.2.840.1 70506.1.1 3.104.2.7 .3.244134 .8 [id number] [facility] 2021-01-15 00:00:00 2021-01-15 00:00:00 Orders Only Doctor Unassigned, [place] 1.2.840.1 50447.1.1 3.104.2.7 .3.207814 .8 [id number] [facility] 2021-01-14 16:20:00 2021-01-14 17:00:00 Telemedici ne Visit Vasiliy Frye A 1.2.840.1 69362.1.1 3.104.2.7 .3.222849 .8 [id number] [facility] 2021-01-14 16:20:00 2021-01-14 17:00:00 Telemedici ne Visit Vasiliy Frye A 1.2.840.1 16649.1.1 3.104.2.7 .3.449876 .8 [id number] [facility] 2021-01-14 16:20:00 2021-01-14 16:20:00 Outpatient R CHICA FRYEZABETH [facility] [id number] [facility] 2021-01-14 07:57:52 2021-01-14 08:37:52 Telemedici ne Visit Vasiliy Frye [facility] 1.2.840.114 350.1.13.10 4.2.7.2.686 [id number] [facility] 2021-01-14 07:57:52 2021-01-14 08:37:52 Telemedici ne Visit Vasiliy Frye 1.2.840.1 48234.1.1 3.104.2.7 .3.019132 .8 [id number] [facility] 2021-01-06 00:00:00 2021-01-06 00:00:00 Refill Chica Fryezabritta Rodríguez 1.2.840.1 18828.1.1 3.104.2.7 .3.860659 .8 [id number] [facility] 2020-12-28 16:30:00 2020-12-28 16:30:00 Outpatient JAZMYNE JOEL [facility] [id number] [facility] 2020-12-28 00:00:00 2020-12-28 00:00:00 Telephone FryeChicaVasiliy Marcos [facility] 1.2.840.114 350.1.13.10 4.2.7.2.686 [id number] 044 [id number] [facility] 2020-12-28 00:00:00 2020-12-28 00:00:00 Telephone FryeChicaVasiliy A 1.2.840.1 93205.1.1 3.104.2.7 .3.565918 .8 [id number] [facility] 2020-12-24 00:00:00 2020-12-24 00:00:00 Patient Secure Vasiliy Rodriguez [facility] 1.2.840.114 350.1.13.10 4.2.7.2.686 [id number] 044 [id number] [facility] 2020-12-24 00:00:00 2020-12-24 00:00:00 Patient Secure Vasiliy Rodriguez 1..840.1 35303.1.1 3.104.2.7 .3.328336 .8 [id number] [facility] 2020-11-29 16:54:20 2020-11-29 17:54:20 Nurse Visit Therapy, Adc Covid Infusion Unknown, Attending [facility] 1..840.114 350.1.13.10 4.2.7.2.686 [id number] 053 [id number] [facility] 2020-11-29 16:54:20 2020-11-29 17:54:20 Nurse Visit Therapy, Adc Covid Infusion Unknown, Attending [facility] 1.2840.114 350.1.13.10 4.2.7.2.686 [id number] 053 [id number] [facility] 2020-11-29 16:30:00 2020-11-29 16:30:00 Outpatient R UNKNOWN, ATTENDING [facility] [id number] [facility] 2020-11-29 15:30:00 2020-11-29 15:30:00 Outpatient R VALDO NEWTON [facility] [id number] [facility] 2020-11-27 00:00:00 2020-11-27 00:00:00 Letter (Out) Elena De Leon 1.2.840.1 71261.1.1 3.104.2.7 .3.719623 .8 [id number] [facility] 2020-11-27 00:00:00 2020-11-27 00:00:00 Letter (Out) Elena De Leon 1.2.840.1 25223.1.1 3.104.2.7 .3.350484 .8 [id number] [facility] 2020-11-26 12:07:52 2020-11-26 12:22:52 Administrative Aide Visit Gabriela Paez, [facility] 1.2.840.1 77830.1.1 3.104.2.7 .3.735386 .8 [id number] [facility] 2020-11-26 12:07:52 2020-11-26 12:22:52 Administrative Aide Visit Gabriela Paez, [facility] 1.2.840.1 28958.1.1 3.104.2.7 .3.227562 .8 [id number] [facility] 2020-11-26 12:15:00 2020-11-26 12:15:00 Outpatient R GABRIELA PAEZ [facility] [id number] [facility] 2020-11-26 00:00:00 2020-11-26 00:00:00 Refill Brenda Woodruff 1.2.840.1 21763.1.1 3.104.2.7 .3.817600 .8 [id number] [facility] 2020-11-26 00:00:00 2020-11-26 00:00:00 Refill Brenda Woodruff 1.2.840.1 40229.1.1 3.104.2.7 .3.948166 .8 [id number] [facility] 2020-11-24 15:07:15 2020-11-24 15:37:11 Urgent Care Josias Hall Amanda 1.2.840.1 85930.1.1 3.104.2.7 .3.958708 .8 [id number] [facility] 2020-11-24 15:07:15 2020-11-24 15:37:11 Urgent Care Josias Hall Amanda 1.2.840.1 36902.1.1 3.104.2.7 .3.455287 .8 [id number] [facility] 2020-11-24 13:15:00 2020-11-24 13:15:00 Outpatient R JOSIAS HALL [facility] [id number] [facility] 2020-11-24 00:00:00 2020-11-24 00:00:00 Travel 1.2.840.1 01285.1.1 3.104.2.7 .3.061024 .8 1.2.840.114 350.1.13.10 4.2.7.3.698 084.8 [id number] [facility] 2020-11-24 00:00:00 2020-11-24 00:00:00 Travel 1.2.840.1 07755.1.1 3.104.2.7 .3.156993 .8 1.2.840.114 350.1.13.10 4.2.7.3.698 084.8 [id number] [facility] 2020-11-23 00:00:00 2020-11-23 00:00:00 Telephone Vasiliy Frye 1.2.840.1 84988.1.1 3.104.2.7 .3.507157 .8 [id number] [facility] 2020-11-23 00:00:00 2020-11-23 00:00:00 Telephone Vasiliy Frye 1.2.840.1 77335.1.1 3.104.2.7 .3.289145 .8 [id number] [facility] 2020-11-22 16:21:55 2020-11-22 17:24:00 Telemedici ne Visit Tim Pinto 1.2.840.1 15417.1.1 3.104.2.7 .3.427460 .8 [id number] [facility] 2020-11-22 16:21:55 2020-11-22 17:24:00 Telemedici ne Visit Tim Pinto 1.2.840.1 06619.1.1 3.104.2.7 .3.093041 .8 [id number] [facility] 2020-11-22 09:00:00 2020-11-22 09:00:00 Outpatient R TIM PINTO [facility] [id number] [facility] 2020-11-22 00:00:00 2020-11-22 00:00:00 Travel 1.2.840.1 15166.1.1 3.104.2.7 .3.323757 .8 1.2.840.114 350.1.13.10 4.2.7.3.698 084.8 [id number] [facility] 2020-11-22 00:00:00 2020-11-22 00:00:00 Orders Only Doctor Unassigned, [place] 1.2.840.1 05627.1.1 3.104.2.7 .3.926506 .8 [id number] [facility] 2020-11-22 00:00:00 2020-11-22 00:00:00 Travel 1.2.840.1 11022.1.1 3.104.2.7 .3.474011 .8 1.2.840.114 350.1.13.10 4.2.7.3.698 084.8 [id number] [facility] 2020-11-22 00:00:00 2020-11-22 00:00:00 Orders Only Doctor Unassigned, [place] 1.2.840.1 67505.1.1 3.104.2.7 .3.195844 .8 [id number] [facility] 2020-11-02 00:00:00 2020-11-02 00:00:00 Telephone Deshaun Leo 1.2.840.1 64644.1.1 3.104.2.7 .3.832914 .8 [id number] [facility] 2020-11-02 00:00:00 2020-11-02 00:00:00 Telephone Deshaun Leo 1.2.840.1 24576.1.1 3.104.2.7 .3.418309 .8 [id number] [facility] 2020-11-01 11:30:00 2020-11-01 11:30:00 Outpatient BRENDA VIEIRA [facility] [id number] [facility] 2020-11-01 09:17:35 2020-11-01 09:47:35 Office Visit Rajan Vivas Ernesto 1.2.840.1 23857.1.1 3.104.2.7 .3.182688 .8 [id number] [facility] 2020-11-01 09:17:35 2020-11-01 09:47:35 Office Visit Rajan Vivas Ernesto 1.2.840.1 85810.1.1 3.104.2.7 .3.628483 .8 [id number] [facility] 2020-11-01 09:30:00 2020-11-01 09:30:00 Outpatient BRENDA VIEIRA [facility] [id number] [facility] 2020-10-31 13:23:28 2020-10-31 13:42:40 Urgent Care Darrick Grover 1.2.840.1 69991.1.1 3.104.2.7 .3.215084 .8 [id number] [facility] 2020-10-31 13:23:28 2020-10-31 13:42:40 Urgent Care Darrick Grover 1.2.840.1 42208.1.1 3.104.2.7 .3.796008 .8 [id number] [facility] 2020-10-31 13:20:00 2020-10-31 13:20:00 Outpatient R DARRICK GROVER [facility] [id number] [facility] 2020-10-31 00:00:00 2020-10-31 00:00:00 Travel 1.2.840.1 32617.1.1 3.104.2.7 .3.165335 .8 1.2.840.114 350.1.13.10 4.2.7.3.698 084.8 [id number] [facility] 2020-10-31 00:00:00 2020-10-31 00:00:00 Travel 1.2.840.1 47595.1.1 3.104.2.7 .3.661010 .8 1.2.840.114 350.1.13.10 4.2.7.3.698 084.8 [id number] [facility] 2020-10-29 00:00:00 2020-10-29 00:00:00 Telephone Vasiliy Frye 1.2.840.1 83859.1.1 3.104.2.7 .3.560870 .8 [id number] [facility] 2020-10-29 00:00:00 2020-10-29 00:00:00 Telephone Vasiliy Frye 1.2.840.1 20798.1.1 3.104.2.7 .3.749603 .8 [id number] [facility] 2020-10-27 19:09:00 2020-10-27 22:21:00 Emergency Fabien Hidalgo 1.2.840.1 47418.1.1 3.104.2.7 .3.785427 .8 [id number] [facility] 2020-10-27 19:09:00 2020-10-27 22:21:00 Emergency Fabien Hidalgo 1.2.840.1 57007.1.1 3.104.2.7 .3.308243 .8 [id number] [facility] 2020-10-27 00:00:00 2020-10-27 00:00:00 Travel 1.2.840.1 25071.1.1 3.104.2.7 .3.822219 .8 1.2.840.114 350.1.13.10 4.2.7.3.698 084.8 [id number] [facility] 2020-10-27 00:00:00 2020-10-27 00:00:00 Orders Only Doctor Unassigned, [place] 1.2.840.1 27993.1.1 3.104.2.7 .3.311795 .8 [id number] [facility] 2020-10-27 00:00:00 2020-10-27 00:00:00 Orders Only Doctor Unassigned, [place] 1.2.840.1 00021.1.1 3.104.2.7 .3.265199 .8 [id number] [facility] 2020-10-27 00:00:00 2020-10-27 00:00:00 Travel 1.2.840.1 39147.1.1 3.104.2.7 .3.665719 .8 1.2.840.114 350.1.13.10 4.2.7.3.698 084.8 [id number] [facility] 2020-10-15 13:50:00 2020-10-15 13:50:00 Outpatient FRANCISCO JAVIER MANN [facility] [id number] [facility] 2020-10-10 18:20:00 2020-10-10 18:20:00 Outpatient RENETTA SALCEDO [facility] [id number] [facility] 2020-10-09 00:00:00 2020-10-09 00:00:00 Refill Melanie Barrera 1.2.840.1 77427.1.1 3.104.2.7 .3.083857 .8 [id number] [facility] 2020-10-09 00:00:00 2020-10-09 00:00:00 Refill Melanie Barrera 1.2.840.1 24502.1.1 3.104.2.7 .3.735946 .8 [id number] [facility] 2020-10-06 00:00:00 2020-10-06 00:00:00 Refill KacyBrenda christie 1.2.840.1 26994.1.1 3.104.2.7 .3.574919 .8 [id number] [facility] 2020-10-06 00:00:00 2020-10-06 00:00:00 Refill Brenda Woodruff 1.2.840.1 09941.1.1 3.104.2.7 .3.686342 .8 [id number] [facility] 2020-10-05 00:00:00 2020-10-05 00:00:00 Patient Secure Msg Doctor Unassigned, [place] [facility] 1.2.840.114 350.1.13.10 4.2.7.2.686 [id number] [facility] 2020-10-05 00:00:00 2020-10-05 00:00:00 Patient Secure Msg Doctor Unassigned, [place] 1.2.840.1 56850.1.1 3.104.2.7 .3.309580 .8 [id number] [facility] 2020-09-26 13:06:16 2020-09-26 23:59:00 Hospital Encounter Melanie Barrera 1.2.840.1 25346.1.1 3.104.2.7 .3.634921 .8 [id number] [facility] 2020-09-26 13:06:16 2020-09-26 23:59:00 Hospital Encounter Melanie Barrera 1.2.840.1 10179.1.1 3.104.2.7 .3.574178 .8 [id number] [facility] 2020-09-26 13:00:00 2020-09-26 13:05:00 Hospital Encounter Melanie Barrera 1.2.840.1 35562.1.1 3.104.2.7 .3.389930 .8 [id number] [facility] 2020-09-26 13:00:00 2020-09-26 13:05:00 Hospital Encounter Melanie Barrera 1.2.840.1 03528.1.1 3.104.2.7 .3.497187 .8 [id number] [facility] 2020-09-26 00:00:00 2020-09-26 00:00:00 Outpatient R MELANIE BARRERA [facility] [id number] [facility] 2020-09-26 00:00:00 2020-09-26 00:00:00 Refill Brenda Woodruff 1.2.840.1 49368.1.1 3.104.2.7 .3.865677 .8 [id number] [facility] 2020-09-26 00:00:00 2020-09-26 00:00:00 Refill Brenda Woodruff 1.2.840.1 40589.1.1 3.104.2.7 .3.599391 .8 [id number] [facility] 2020-09-21 00:00:00 2020-09-21 00:00:00 Patient Secure Msg Doctor Unassigned, [place] [facility] 1.2.840.114 350.1.13.10 4.2.7.2.686 [id number] [facility] 2020-09-21 00:00:00 2020-09-21 00:00:00 Patient Secure Msg Doctor Unassigned, [place] 1.2.840.1 96721.1.1 3.104.2.7 .3.912965 .8 [id number] [facility] 2020-09-16 21:34:00 2020-09-17 01:48:00 Emergency Gwen Fabien Nataliia 1.2.840.1 34704.1.1 3.104.2.7 .3.383764 .8 [id number] [facility] 2020-09-16 21:34:00 2020-09-17 01:48:00 Emergency Gwen, Fabien Nataliia 1.2.840.1 57610.1.1 3.104.2.7 .3.869071 .8 [id number] [facility] 2020-09-16 00:00:00 2020-09-16 00:00:00 Travel 1.2.840.1 16397.1.1 3.104.2.7 .3.524398 .8 1.2.840.114 350.1.13.10 4.2.7.3.698 084.8 [id number] [facility] 2020-09-16 00:00:00 2020-09-16 00:00:00 Travel 1.2.840.1 38024.1.1 3.104.2.7 .3.783742 .8 1.2.840.114 350.1.13.10 4.2.7.3.698 084.8 [id number] [facility] 2020-09-10 15:02:23 2020-09-10 16:04:39 Office Visit Melanie Barrera 1.2.840.1 23292.1.1 3.104.2.7 .3.039659 .8 [id number] [facility] 2020-09-10 15:02:23 2020-09-10 16:04:39 Office Visit Melanie Barrera 1.2.840.1 62686.1.1 3.104.2.7 .3.178761 .8 [id number] [facility] 2020-09-10 15:00:00 2020-09-10 15:00:00 Outpatient R MELANIE BARRERA [facility] [id number] [facility] 2020-09-10 00:00:00 2020-09-10 00:00:00 Travel 1.2.840.1 94126.1.1 3.104.2.7 .3.700989 .8 1.2.840.114 350.1.13.10 4.2.7.3.698 084.8 [id number] [facility] 2020-09-10 00:00:00 2020-09-10 00:00:00 Patient Secure Msg Vasiliy Frye 1.2.840.1 80895.1.1 3.104.2.7 .3.887278 .8 [id number] [facility] 2020-09-10 00:00:00 2020-09-10 00:00:00 Refill Melanie Barrera 1.2.840.1 92214.1.1 3.104.2.7 .3.053048 .8 [id number] [facility] 2020-09-10 00:00:00 2020-09-10 00:00:00 Refill Melanie Barrera 1.2.840.1 57032.1.1 3.104.2.7 .3.515664 .8 [id number] [facility] 2020-09-10 00:00:00 2020-09-10 00:00:00 Patient Secure Msg Vasiliy Frye 1.2.840.1 80291.1.1 3.104.2.7 .3.493114 .8 [id number] [facility] 2020-09-10 00:00:00 2020-09-10 00:00:00 Travel 1.2.840.1 33366.1.1 3.104.2.7 .3.807201 .8 1.2.840.114 350.1.13.10 4.2.7.3.698 084.8 [id number] [facility] 2020-09-06 15:00:00 2020-09-06 15:00:00 Outpatient R TARA SANDS [facility] [id number] [facility] 2020-08-10 00:00:00 2020-08-10 00:00:00 RefMelanie Ash 1.2.840.1 45943.1.1 3.104.2.7 .3.622999 .8 [id number] [facility] 2020-08-06 15:37:43 2020-08-06 18:17:00 Emergency nullFlavo r [facility] [id number] Memoria [facility] 2020-08-06 10:37:00 2020-08-06 13:17:00 [facility] 2020-08-03 00:00:00 2020-08-03 00:00:00 RefVasiliy Lebron 1.2.840.1 39705.1.1 3.104.2.7 .3.965495 .8 [id number] [facility] 2020-07-24 00:00:00 2020-07-24 00:00:00 RefVasiliy Lebron 1.2.840.1 00785.1.1 3.104.2.7 .3.926381 .8 [id number] [facility] 2020-07-17 09:00:00 2020-07-17 09:00:00 Outpatient R JONY NASCIMENTO [facility] [id number] [facility] 2020-07-16 00:00:00 2020-07-16 00:00:00 Orders Only Doctor Unassigned, [place] 1.2.840.1 17820.1.1 3.104.2.7 .3.612520 .8 [id number] [facility] 2020-07-13 08:37:47 2020-07-13 17:00:08 Telemedici ne Visit Vasiliy Frye 1.2.840.1 73021.1.1 3.104.2.7 .3.557132 .8 [id number] [facility] 2020-07-13 15:00:00 2020-07-13 15:00:00 Outpatient VASILIY ROMERO [facility] [id number] [facility] 2020-06-28 00:00:00 2020-06-28 00:00:00 Refill Vasiliy Frye 1.2.840.1 43313.1.1 3.104.2.7 .3.448748 .8 [id number] [facility] 2020-06-25 09:15:00 2020-06-25 09:15:00 Appointmen t; RIKY BARRIENTOS P.A. THOMAS, RUSSELL, P.A. [facility] Orthopedics at [facility], [address] [id number] [facility] 2020-06-21 00:00:00 2020-06-21 00:00:00 Patient Outreach Manan Kathleen 1.2.840.1 38343.1.1 3.104.2.7 .3.001116 .8 [id number] [facility] 2020-06-19 10:33:00 2020-06-20 04:59:00 [facility] [id number] 28 [facility] 2020-06-19 05:33:00 2020-06-19 23:59:00 Outpatient RAVEN JIMENEZ [facility] 2020-06-19 10:30:00 2020-06-19 10:30:00 Appointmen t; RAVEN JIMENEZ M.D. SABONGHY, ERIC, M.D. [facility] [id number] [place] [facility] 2020-06-13 15:45:00 2020-06-13 15:45:00 Appointmen t; RAVEN JIMENEZ M.D. SABONGHY, ERIC, M.D. [facility] [id number] [place] [facility] 2020-06-11 15:00:00 2020-06-11 15:00:00 Outpatient R JONY NASCIMENTO [facility] [id number] [facility] 2020-06-07 07:58:15 2020-06-07 08:58:29 Ancillary Visit Jony Nascimento Meisha 1..840.1 16991.1.1 3.104.2.7 .3.352802 .8 [id number] [facility] 2020-06-07 08:00:00 2020-06-07 08:00:00 Outpatient R JONY NASCIMENTO [facility] [id number] [facility] 2020-06-07 00:00:00 2020-06-07 00:00:00 Orders Only Doctor Unassigned, [place] 1..840.1 12816.1.1 3.104.2.7 .3.206035 .8 [id number] [facility] 2020-06-03 00:00:00 2020-06-03 00:00:00 RefVasiliy Lebron 1..840.1 26260.1.1 3.104.2.7 .3.711131 .8 [id number] [facility] 2020-05-30 15:00:00 2020-05-30 15:00:00 Appointmen t; RIKY BARRIENTOS P.A. THOMAS, RUSSELL, P.A. [facility] Orthopedics at [facility], [address] [id number] [place] [facility] 2020-05-30 00:00:00 2020-05-30 00:00:00 Orders Only Doctor Unassigned, [place] [facility] 1.2.840.114 350.1.13.10 4.2.7.2.686 [id number] [id number] [facility] 2020-05-17 11:26:00 2020-05-17 16:35:00 Day Surgery nullFlavo r [facility] [id number] 27 [facility] 2020-05-17 05:26:00 2020-05-17 10:35:00 Outpatient RAVEN JIMENEZ [facility] 7527 [facility] 2020-05-17 10:30:00 2020-05-17 10:30:00 Appointmen t; RAVEN JIMENEZ M.D. SABONGHY, ERIC, M.D. [facility] [id number] [place] [facility] 2020-05-11 09:30:00 2020-05-11 09:30:00 Appointmen t; RAVEN JIMENEZ M.D. SABONGHY, ERIC, M.D. [facility] [id number] [place] [facility] 2020-05-09 13:41:00 2020-05-09 15:01:00 Emergency Starla Guevara [facility] ([facility] 1.2.840.114 350.1.13.10 4.2.7.2.686 [id number] [facility] 2020-05-07 09:30:00 2020-05-07 09:30:00 Outpatient SANDOVAL WALLIS [facility] [id number] [facility] 2020-05-02 15:15:00 2020-05-02 15:15:00 Appointmen t; RAVEN JIMENEZ M.D. SABONGHY, ERIC, M.D. [facility] Orthopedics at [facility], [address] [id number] [place] [facility] 2020-04-28 10:20:00 2020-04-28 10:20:00 Outpatient AUGUSTO GOMEZ [facility] [id number] [facility] 2020-04-27 00:00:00 2020-04-27 00:00:00 Telephone Vasiliy Frye [facility] Building 1..840.114 350.1.13.10 4.2.7.2.686 [id number] [facility] 2020-04-18 16:30:00 2020-04-18 16:30:00 Appointtravon castillo; STARLA RAWLS M.D. STARLA RAWLS M.D. [facility] Orthopedics [facility] [id number] [facility] 2020-04-17 17:16:06 2020-04-17 18:18:14 Urgent Care [facility] Office Building One 1..840.114 350.1.13.10 4.2.7.2.686 [id number] [facility] 2020-04-17 17:00:00 2020-04-17 17:00:00 Outpatient AUGUSTO GOMEZ [facility] [id number] [facility] 2020-04-14 19:00:00 2020-04-14 19:00:00 Outpatient AUGUSTO GOMEZ [facility] [id number] [facility] 2020-04-14 14:24:30 2020-04-14 14:44:30 Laboratory Only Lab, Adc Fam Pob I Will [facility] Office Building One ..840.114 350.1.13.10 4.2.7.2.686 [id number] 044 [id number] [facility] 2020-04-14 13:40:00 2020-04-14 13:40:00 Outpatient UAGUSTO GOMEZ [facility] [id number] [facility] 2020-04-14 00:00:00 2020-04-14 00:00:00 Case Management [facility] 1.2.840.114 350.1.13.10 4.2.7.2.686 [id number] [facility] 2020-04-11 15:00:00 2020-04-11 15:00:00 Outpatient R TIMI GASTELUM [facility] [id number] [facility] 2020-04-11 00:00:00 2020-04-11 00:00:00 Patient Secure Msg Vasiliy Frye [facility] 1..840.114 350.1.13.10 4.2.7.2.686 [id number] [facility] 2020-03-26 09:45:00 2020-03-26 09:45:00 Appointmen t; RAVEN JIMENEZ M.D. SABONGHY, ERIC, M.D. [facility] [id number] [facility] 2020-03-26 00:00:00 2020-03-26 00:00:00 Orders Only Doctor Unassigned, [place] [facility] 1.2.840.114 350.1.13.10 4.2.7.2.686 [id number] [id number] [facility] 2020-03-22 08:07:34 2020-03-23 15:12:15 Telemedici ne Visit Vasiliy Frye [facility] 1.2.840.114 350.1.13.10 4.2.7.2.686 [id number] [facility] 2020-03-22 15:40:00 2020-03-22 15:40:00 Outpatient R VASILIY FRYE [facility] [id number] [facility] 2020-03-21 00:00:00 2020-03-21 00:00:00 Telephone [facility] 1.2.840.114 350.1.13.10 4.2.7.2.686 [id number] [facility] 2020-03-08 15:00:00 2020-03-08 15:00:00 Outpatient R TARA SANDS [facility] [id number] [facility] 2020-03-07 15:00:00 2020-03-07 15:00:00 Darrian castillo; STARLA RAWLS M.D. STARLA RAWLS M.D. [facility] Orthopedics [facility] [id number] [facility] 2020-03-07 00:00:00 2020-03-07 00:00:00 Travel 1.2.840.1 04922.1.1 3.104.2.7 .3.520009 .8 1.2.840.114 350.1.13.10 4.2.7.3.698 084.8 [id number] [facility] 2020-02-29 14:30:19 2020-02-29 15:44:52 Office Visit Timi Gastelum 1.2.840.1 94667.1.1 3.104.2.7 .3.151530 .8 [id number] [facility] 2020-02-29 14:30:00 2020-02-29 14:30:00 Outpatient R TIMI GASTELUM [facility] [id number] [facility] 2020-02-29 00:00:00 2020-02-29 00:00:00 Travel 1.2.840.1 00673.1.1 3.104.2.7 .3.299331 .8 1.2.840.114 350.1.13.10 4.2.7.3.698 084.8 [id number] [facility] 2020-02-28 00:33:00 2020-02-28 05:59:00 Outpt Diag Services nullFlavo r [facility] [place] [id number] 07 David Wallace 2020-02-17 11:00:00 2020-02-17 11:00:00 Appointmen t; TYE PRATHER M.D. TYE ROCA M.D. [facility] [id number] [facility] 2020-[facility]-17 00:00:00 2020-02-17 00:00:00 Patient Secure Timi Gastelum [facility] 1..840.114 350.1.13.10 4.2.7.2.686 [id number] [facility] 2020-02-16 00:00:00 2020-02-16 00:00:00 Orders Only Doctor Unassigned, [place] 1.2.840.1 04227.1.1 3.104.2.7 .3.021542 .8 [id number] [facility] 2020-02-16 00:00:00 2020-02-16 00:00:00 Telephone Vasiliy Frye 1.2.840.1 96807.1.1 3.104.2.7 .3.228361 .8 [id number] [facility] 2020-02-15 00:00:00 2020-02-15 00:00:00 Telephone Vasiliy Frye 1.2.840.1 03905.1.1 3.104.2.7 .3.331374 .8 [id number] [facility] 2020-02-13 00:00:00 2020-02-13 00:00:00 Telephone Azam Hanson 1.2.840.1 89757.1.1 3.104.2.7 .3.482482 .8 [id number] [facility] 2020-02-13 00:00:00 2020-02-13 00:00:00 Telephone Timi Gastelum 1.2.840.1 57704.1.1 3.104.2.7 .3.757619 .8 [id number] [facility] 2020-02-08 16:00:00 2020-02-08 16:00:00 Appointmen t; STARLA RAWLS M.D. STARLA RAWLS M.D. [facility] Orthopedics [facility] [id number] [place] [facility] 2020-02-06 00:00:00 2020-02-06 00:00:00 Orders Only Doctor Unassigned, [place] 1.2840.1 00433.1.1 3.104.2.7 .3.681659 .8 [id number] [facility] 2020-01-25 16:18:27 2020-01-25 16:51:59 Office Visit Timi Gastelum 1.2840.1 14879.1.1 3.104.2.7 .3.510364 .8 [id number] [facility] 2020-01-25 16:00:00 2020-01-25 16:00:00 Outpatient R TIMI GASTELUM [facility] [id number] [facility] 2020-01-25 00:00:00 2020-01-25 00:00:00 Prep For Surgery Timbo Carlisle 1.2840.1 22371.1.1 3.104.2.7 .3.576430 .8 [id number] [facility] 2020-01-24 00:00:00 2020-01-24 00:00:00 Orders Only Doctor Unassigned, [place] 1.2840.1 96941.1.1 3.104.2.7 .3.894633 .8 [id number] [facility] 2020-01-19 16:15:00 2020-01-19 16:15:00 Appointmen t; STARLA RAWLS M.D. KENDRICK, JAMES, M.D. [facility] Orthopedics [facility] [id number] [place] [facility] 2020-01-18 00:00:00 2020-01-18 00:00:00 Patient Secure Msg Vasiliy Frye 1.2840.1 92358.1.1 3.104.2.7 .3.090451 .8 [id number] [facility] 2020-01-17 00:00:00 2020-01-17 00:00:00 Telephone Vasiliy Frye 1.2.840.1 60338.1.1 3.104.2.7 .3.651533 .8 [id number] [facility] 2020-01-11 00:00:00 2020-01-11 00:00:00 Patient Secure Msg Vasiliy Frye 1.2.840.1 71665.1.1 3.104.2.7 .3.014539 .8 [id number] [facility] 2020-01-03 11:19:47 2020-01-03 11:48:19 Administrative Aide Visit Jazmyne Esposito [facility], [facility] Pob I 1.2.840.1 26933.1.1 3.104.2.7 .3.267424 .8 [id number] [facility] 2020-01-03 10:37:23 2020-01-03 11:18:36 Urgent Care Jazmyne Esposito [facility] 1.2.840.1 70601.1.1 3.104.2.7 .3.909763 .8 [id number] [facility] 2020-01-03 10:20:00 2020-01-03 10:20:00 Outpatient R JAZMYNE ESPOSITO [facility] [id number] [facility] 2019-12-26 00:00:00 2019-12-26 00:00:00 Case Management Krishna Espino 1.2.840.1 86257.1.1 3.104.2.7 .3.915085 .8 [id number] [facility] 2019-12-22 00:00:00 2019-12-22 00:00:00 Case Management Krishna Espino 1.2.840.1 75553.1.1 3.104.2.7 .3.186580 .8 [id number] [facility] 2019-12-20 15:23:13 2019-12-20 16:01:18 Office Visit Melanie Barrera 1.2.840.1 74246.1.1 3.104.2.7 .3.314481 .8 [id number] [facility] 2019-12-20 15:15:00 2019-12-20 15:15:00 Outpatient R MELANIE BARRERA [facility] [id number] [facility] 2019-12-20 13:00:00 2019-12-20 13:00:00 Darrian CAMP, PROVIDER KIAH CHILDS, PROVIDER [facility] Orthopedics [facility] [id number] [facility] 2019-12-20 00:00:00 2019-12-20 00:00:00 Travel 1.2.840.1 64643.1.1 3.104.2.7 .3.498356 .8 1.2.840.114 350.1.13.10 4.2.7.3.698 084.8 [id number] [facility] 2019-12-16 13:23:04 2019-12-16 14:23:04 Ancillary Visit Kathie Quarles Brendon 1.2.840.1 52106.1.1 3.104.2.7 .3.627743 .8 [id number] [facility] 2019-12-16 13:00:00 2019-12-16 13:00:00 Outpatient R KATHIE QUARLES [facility] [id number] [facility] 2019-12-16 00:00:00 2019-12-16 00:00:00 Refill Vasiliy Frye 1.2.840.1 67062.1.1 3.104.2.7 .3.935550 .8 [id number] [facility] 2019-12-16 00:00:00 2019-12-16 00:00:00 Telephone Vasiliy Frye 1.2.840.1 21886.1.1 3.104.2.7 .3.619235 .8 [id number] [facility] 2019-12-16 00:00:00 2019-12-16 00:00:00 Orders Only Doctor Unassigned, [place] 1.2.840.1 83801.1.1 3.104.2.7 .3.304232 .8 [id number] [facility] 2019-12-13 00:00:00 2019-12-13 00:00:00 Travel 1.2840.1 31896.1.1 3.104.2.7 .3.624261 .8 1.2.840.114 350.1.13.10 4.2.7.3.698 084.8 [id number] [facility] 2019-12-08 12:48:00 2019-12-09 04:00:00 Day Surgery nullFlavo r [facility] [id number] 26 [facility] 2019-12-08 07:48:00 2019-12-08 23:00:00 Outpatient STARLA RAWLS [facility] [address] [facility] 2019-12-08 08:30:00 2019-12-08 08:30:00 Appointmen t; STARLA RAWLS M.D. KENDRICK, JAMES, M.D. [facility] Orthopedics - [facility] [id number] [facility] 2019-12-08 00:00:00 2019-12-08 00:00:00 Refill Vasiliy Frye 1..840.1 83979.1.1 3.104.2.7 .3.512662 .8 [id number] [facility] 2019-12-05 15:40:00 2019-12-05 15:40:00 Outpatient VASILIY ROMERO [facility] [id number] [facility] 2019-12-05 00:00:00 2019-12-05 00:00:00 Telephone Vasiliy Frye 1.2.840.1 19154.1.1 3.104.2.7 .3.600090 .8 [id number] [facility] 2019-12-03 00:00:00 2019-12-03 00:00:00 Patient Secure Msg Doctor Unassigned, [place] [facility] 1.2.840.114 350.1.13.10 4.2.7.2.686 [id number] [facility] 2019-12-02 00:00:00 2019-12-02 00:00:00 Orders Only Doctor Unassigned, [place] 1.2840.1 14077.1.1 3.104.2.7 .3.498767 .8 [id number] [facility] 2019-11-28 00:00:00 2019-11-28 00:00:00 Telephone Vasiliy Frye 1.2840.1 34751.1.1 3.104.2.7 .3.282203 .8 [id number] [facility] 2019-11-18 14:30:00 2019-11-18 14:30:00 Appointtravon castillo; STARLA RAWLS M.D. STARLA RAWLS M.D. [facility] Orthopedics [facility] [id number] [facility] 2019-11-11 00:00:00 2019-11-11 00:00:00 Telephone Azam Hanson [facility] 1.2840.114 350.1.13.10 4.2.7.2.686 [id number] [facility] 2019-11-10 07:04:00 2019-11-10 09:15:00 Hospital Encounter Timi Gastelum [facility] ([facility]) 1.2.840.114 350.1.13.10 4.2.7.2.686 [id number] [facility] 2019-11-10 00:00:00 2019-11-10 00:00:00 Orders Only Doctor Unassigned, [place] [facility] 1.2840.114 350.1.13.10 4.2.7.2.686 [id number] [facility] 2019-11-07 00:00:00 2019-11-07 00:00:00 Letter (Out) Nurse, Josh [facility] [facility] 1.2840.114 350.1.13.10 4.2.7.2.686 [id number] [facility] 2019-11-06 16:46:35 2019-11-06 17:01:35 Laboratory Only Only, [facility] 1.20.114 350.1.13.10 4.2.7.2.686 [id number] [facility] 2019-11-06 16:45:00 2019-11-06 16:45:00 Outpatient R TIMI GASTELUM [facility] [id number] [facility] 2019-10-24 13:45:47 2019-10-24 15:09:04 [facility] 1.2.114 350.1.13.10 4.2.7.2.686 [id number] [facility] 2019-10-24 14:00:00 2019-10-24 14:00:00 Outpatient TIMI LOUIS [facility] [id number] [facility] 2019-10-24 00:00:00 2019-10-24 00:00:00 Orders Only Doctor Unassigned, [place] [facility] 1.20.114 350.1.13.10 4.2.7.2.686 [id number] [facility] 2019-10-23 12:40:00 2019-10-23 12:40:00 Outpatient JAZMYNE JOEL [facility] [id number] [facility] 2019-10-22 19:20:00 2019-10-22 19:20:00 Outpatient R BRENDA MENESES [facility] [id number] [facility] 2019-10-06 10:00:00 2019-10-06 10:00:00 Hospital Encounter FryeLornaVasiliy Marcos 1.2.840.1 89116.1.1 3.104.2.7 .3.702839 .8 [id number] [facility] 2019-10-06 08:10:00 2019-10-06 08:47:00 Surgery Timi Gasteluml 1.2.840.1 22581.1.1 3.104.2.7 .3.214521 .8 [id number] [facility] 2019-10-06 06:56:00 2019-10-06 08:30:00 Hospital Encounter Timi Gasteluml 1.2.840.1 71077.1.1 3.104.2.7 .3.522839 .8 [id number] [facility] 2019-10-06 07:37:00 2019-10-06 07:51:00 Anesthesia Event Kyle Stout Ryan 1.2.840.1 39453.1.1 3.104.2.7 .3.017004 .8 [id number] [facility] 2019-10-06 00:00:00 2019-10-06 00:00:00 Orders Only Doctor Unassigned, [place] 1.2.840.1 74058.1.1 3.104.2.7 .3.070015 .8 [id number] [facility] 2019-10-03 15:44:39 2019-10-03 17:12:11 Office Visit Melva Vasiliy A 1.2.840.1 79645.1.1 3.104.2.7 .3.923449 .8 [id number] [facility] 2019-10-03 15:40:00 2019-10-03 15:40:00 Outpatient VASILIY ROMERO [facility] [id number] [facility] 2019-10-03 15:20:17 2019-10-03 15:35:17 Laboratory Only Valdo Newton, Adc Test 1.2.840.1 92937.1.1 3.104.2.7 .3.770875 .8 [id number] [facility] 2019-10-03 00:00:00 2019-10-03 00:00:00 Travel 1.2.840.1 99364.1.1 3.104.2.7 .3.125541 .8 1.2.840.114 350.1.13.10 4.2.7.3.698 084.8 [id number] [facility] 2019-09-29 14:00:00 2019-09-29 14:00:00 Appointtravon t; STARLA RAWLS M.D. STARLA RAWLS M.D. [facility] Orthopedics [facility] [id number] [facility] ans 2019-09-29 00:00:00 2019-09-29 00:00:00 Telephone Timi Gastelum 1.2.840.1 51320.1.1 3.104.2.7 .3.309781 .8 [id number] [facility] 2019-09-28 00:00:00 2019-09-28 00:00:00 Prep For Surgery Timi Gastelum 1.2.840.1 15417.1.1 3.104.2.7 .3.770877 .8 [id number] [facility] 2019-09-26 00:00:00 2019-09-26 00:00:00 Telephone Timi Gastelum 1.2.840.1 59923.1.1 3.104.2.7 .3.279233 .8 [id number] [facility] 2019-09-23 10:15:00 2019-09-23 10:15:00 Outpatient DWIGHT REAL [facility] [id number] [facility] 2019-09-23 00:00:00 2019-09-23 00:00:00 Travel 1.2.840.1 04505.1.1 3.104.2.7 .3.144498 .8 1.2.840.114 350.1.13.10 4.2.7.3.698 084.8 [id number] [facility] 2019-09-20 00:00:00 2019-09-20 00:00:00 Travel 1.2.840.1 23368.1.1 3.104.2.7 .3.344272 .8 1.2.840.114 350.1.13.10 4.2.7.3.698 084.8 [id number] [facility] 2019-09-02 00:00:00 2019-09-02 00:00:00 Travel 1.2.840.1 16983.1.1 3.104.2.7 .3.805436 .8 1.2.840.114 350.1.13.10 4.2.7.3.698 084.8 [id number] [facility] 2019-08-26 15:00:00 2019-08-26 15:00:00 Outpatient NATHAN MARTINEZ [facility] [id number] [facility] 2019-08-25 00:00:00 2019-08-25 00:00:00 Travel 1.2.840.1 24864.1.1 3.104.2.7 .3.626703 .8 1.2.840.114 350.1.13.10 4.2.7.3.698 084.8 [id number] [facility] 2019-08-24 00:00:00 2019-08-24 00:00:00 Telephone Melanie Barrera 1.2.840.1 78396.1.1 3.104.2.7 .3.998662 .8 [id number] [facility] 2019-08-24 00:00:00 2019-08-24 00:00:00 Travel 1.2.840.1 98790.1.1 3.104.2.7 .3.191757 .8 1.2.840.114 350.1.13.10 4.2.7.3.698 084.8 [id number] [facility] 2019-08-23 14:00:00 2019-08-23 14:00:00 Appointmen t; STARLA RAWLS M.D. KENDRICK, JAMES, M.D. [facility] Orthopedics [facility] [id number] [place] [facility] ans 2019-08-22 00:00:00 2019-08-22 00:00:00 Telephone Vasiliy Frye 1.2.840.1 45690.1.1 3.104.2.7 .3.030900 .8 [id number] [facility] 2019-08-16 07:30:00 2019-08-16 07:30:00 Appointtravon t; STARLA RAWLS M.D. KENDRICK, JAMES, M.D. [facility] [id number] [place] [facility] ans 2019-08-15 00:00:00 2019-08-15 00:00:00 Telephone MehulEster 1.2.840.1 98318.1.1 3.104.2.7 .3.419883 .8 [id number] [facility] 2019-08-11 07:49:00 2019-08-11 09:39:00 Hospital Encounter AbelareliTimi 1.2.840.1 20344.1.1 3.104.2.7 .3.726396 .8 [id number] [facility] 2019-08-11 08:50:00 2019-08-11 09:20:00 Surgery Abelareli Timi Bosch 1.2.840.1 04495.1.1 3.104.2.7 .3.675213 .8 [id number] [facility] 2019-08-11 08:37:00 2019-08-11 09:00:00 Anesthesia Event Sharlabryon RaymondKaycee Abrams 1.2.840.1 03647.1.1 3.104.2.7 .3.421629 .8 [id number] [facility] 2019-08-11 00:00:00 2019-08-11 00:00:00 Telephone Vasiliy Frye 1.2.840.1 93194.1.1 3.104.2.7 .3.573851 .8 [id number] [facility] 2019-08-09 14:15:00 2019-08-09 14:15:00 STARLA Rey M.D. KENDRICK, JAMES, M.D. [facility] [id number] [facility] 2019-08-08 13:03:33 2019-08-08 13:22:55 Laboratory Only Timi Gastelum Nurse, [facility] General Surgery 1.2.840.1 42775.1.1 3.104.2.7 .3.888487 .8 [id number] [facility] 2019-08-08 13:00:00 2019-08-08 13:00:00 Outpatient R [facility] [id number] [facility] 2019-08-08 00:00:00 2019-08-08 00:00:00 Telephone Antony Gastelum 1.2.840.1 48476.1.1 3.104.2.7 .3.637952 .8 [id number] [facility] 2019-08-08 00:00:00 2019-08-08 00:00:00 Travel 1.2.840.1 78093.1.1 3.104.2.7 .3.478006 .8 1.2.840.114 350.1.13.10 4.2.7.3.698 084.8 [id number] [facility] 2019-08-05 00:00:00 2019-08-05 00:00:00 Prep For Surgery Timi Gastelum 1.2.840.1 08931.1.1 3.104.2.7 .3.590248 .8 [id number] [facility] 2019-08-05 00:00:00 2019-08-05 00:00:00 Travel 1.2.840.1 61355.1.1 3.104.2.7 .3.962773 .8 1.2.840.114 350.1.13.10 4.2.7.3.698 084.8 [id number] [facility] 2019-08-04 15:40:00 2019-08-04 15:40:00 Outpatient VASILIY ROMERO [facility] [id number] [facility] 2019-08-04 00:00:00 2019-08-04 00:00:00 Telephone Timi Gastelumeel 1.2.840.1 40521.1.1 3.104.2.7 .3.849938 .8 [id number] [facility] 2019-08-01 08:28:03 2019-08-01 16:56:40 Telemedici ne Visit Vasiliy Frye 1.2.840.1 32595.1.1 3.104.2.7 .3.924539 .8 [id number] [facility] 2019-08-01 15:40:00 2019-08-01 15:40:00 Outpatient VASILIY ROMERO [facility] [id number] [facility] 2019-07-29 00:00:00 2019-07-29 00:00:00 Travel 1.2.840.1 94058.1.1 3.104.2.7 .3.279406 .8 1.2.840.114 350.1.13.10 4.2.7.3.698 084.8 [id number] [facility] 2019-07-28 00:00:00 2019-07-28 00:00:00 Refill Vasiliy Frye 1.2.840.1 40504.1.1 3.104.2.7 .3.011106 .8 [id number] [facility] 2019-07-25 00:00:00 2019-07-25 00:00:00 Telephone Timi Gastelum 1.2.840.1 53885.1.1 3.104.2.7 .3.658780 .8 [id number] [facility] 2019-07-14 00:00:00 2019-07-14 00:00:00 [facility]ill [facility] Frye [facility] 1.2.840.114 350.1.13.10 4.2.7.2.686 [id number] [facility] 2019-07-07 12:45:00 2019-07-07 12:45:00 Outpatient R TARA SANDS [facility] [id number] [facility] 2019-07-05 15:00:00 2019-07-05 15:00:00 Appointmen t; STARLA RAWLS M.D. KENDRICK, JAMES, M.D. [facility] Orthopedics [facility] [id number] [place] [facility] 2019-07-02 15:52:31 2019-07-02 20:41:21 Telemedici ne Visit Angela Snowden [facility], Provider 7 Adult Urgent 1.2.840.1 50522.1.1 3.104.2.7 .3.006750 .8 [id number] [facility] 2019-07-02 16:15:00 2019-07-02 16:15:00 Outpatient R ANGELA SNOWDEN [facility] [id number] [facility] 2019-07-01 10:45:00 2019-07-01 10:45:00 Appointmen t; STARLA RAWLS M.D. KENDRICK, JAMES, M.D. [facility] [id number] [place] [facility] 2019-06-22 00:00:00 2019-06-22 00:00:00 Telephone Melanie Barrera 1.2.840.1 99115.1.1 3.104.2.7 .3.211392 .8 [id number] [facility] 2019-06-21 14:00:00 2019-06-21 14:00:00 Outpatient Connie DAMARIS HENDRIX [facility] [id number] [facility] 2019-06-21 13:15:21 2019-06-21 13:52:29 Office Visit Melanie Barrera 1.2.840.1 31513.1.1 3.104.2.7 .3.597877 .8 [id number] [facility] 2019-06-21 13:15:00 2019-06-21 13:15:00 Outpatient Connie MELANIE BARRERA [facility] [id number] [facility] 2019-06-21 00:00:00 2019-06-21 00:00:00 Telephone Timi Gastelum 1.2.840.1 80026.1.1 3.104.2.7 .3.356848 .8 [id number] [facility] 2019-06-21 00:00:00 2019-06-21 00:00:00 Orders Only Doctor Unassigned, [place] 1.2.840.1 62645.1.1 3.104.2.7 .3.994060 .8 [id number] [facility] 2019-06-20 13:00:00 2019-06-20 13:00:00 Outpatient Connie HENDRIX DAMARIS [facility] [id number] [facility] 2019-06-17 12:24:59 2019-06-17 14:15:31 Office Visit Vasiliy Frye 1.2.840.1 45587.1.1 3.104.2.7 .3.281962 .8 [id number] [facility] 2019-06-17 12:20:00 2019-06-17 12:20:00 Outpatient VASILIY ROMERO [facility] [id number] [facility] 2019-06-13 22:18:00 2019-06-14 04:59:00 Outpt Diag Services nullFlavo r [facility] Outpatient Imaging [place] [id number] David Wallace 2019-06-14 00:00:00 2019-06-14 00:00:00 Telephone Timi Gastelum 1.2.840.1 00612.1.1 3.104.2.7 .3.466171 .8 [id number] [facility] 2019-05-27 00:00:00 2019-05-27 00:00:00 Refill Vasiliy Frye Marcos 1.2.840.1 20009.1.1 3.104.2.7 .3.568574 .8 [id number] [facility] 2019-05-23 00:00:00 2019-05-23 00:00:00 Case Management Vasiliy Frye 1.2.840.1 55848.1.1 3.104.2.7 .3.634430 .8 [id number] [facility] 2019-05-23 00:00:00 2019-05-23 00:00:00 Telephone Vasiliy Frye 1.2.840.1 97003.1.1 3.104.2.7 .3.046661 .8 [id number] [facility] 2019-05-23 00:00:00 2019-05-23 00:00:00 Telephone Vasiliy Frye 1.2.840.1 56258.1.1 3.104.2.7 .3.915450 .8 [id number] [facility] 2019-05-20 15:45:00 2019-05-20 15:45:00 Appointmen t; STARLA RAWLS M.D. KENDRICK, JAMES, M.D. [facility] [id number] [place] [facility]ici ans 2019-05-15 20:32:11 2019-05-15 21:14:49 Urgent Care Unknown, Attending Augusto Solis 1.2840.1 59931.1.1 3.104.2.7 .3.232750 .8 [id number] [facility] 2019-05-03 17:17:41 2019-05-03 17:32:41 Administrative Aide Visit Vasiliy Frye, Adc Lab Main 1.2840.1 58985.1.1 3.104.2.7 .3.922683 .8 [id number] [facility] 2019-05-03 15:08:01 2019-05-03 16:57:58 Office Visit Vasiliy Frye 1.2840.1 18646.1.1 3.104.2.7 .3.689199 .8 [id number] [facility] 2019-05-03 00:00:00 2019-05-03 00:00:00 Orders Only Doctor Unassigned, [place] 1.2840.1 81738.1.1 3.104.2.7 .3.001676 .8 [id number] [facility] 2019-05-01 00:00:00 2019-05-01 00:00:00 Refill Frye Vasiliy Rodríguez 1.2840.1 23938.1.1 3.104.2.7 .3.988594 .8 [id number] [facility] 2019-04-08 21:06:00 2019-04-09 05:59:00 Outpt Diag Services nullFlavo r [facility] Outpatient Imaging [facility] [id number] 05 David Wallace 2019-04-08 14:45:00 2019-04-08 14:45:00 Appointtravon t; STARLA RAWLS M.D. STARLA RAWLS M.D. [facility] Orthopedics [facility] [id number] [place] [facility] 2019-04-08 00:00:00 2019-04-08 00:00:00 Telephone Ester Mercedes 1.840.1 62213.1.1 3.104.2.7 .3.201927 .8 [id number] [facility] 2019-04-07 10:11:00 2019-04-07 11:05:00 Surgery Timi Gastelum 1.2.840.1 92009.1.1 3.104.2.7 .3.081202 .8 [id number] [facility] 2019-04-07 08:07:00 2019-04-07 10:57:00 Hospital Encounter Timi Gastelum 1.2.840.1 20782.1.1 3.104.2.7 .3.626559 .8 [id number] [facility] 2019-04-07 09:35:00 2019-04-07 10:15:00 Anesthesia Event Dasia Chan Hiram 1.2.840.1 34947.1.1 3.104.2.7 .3.536125 .8 [id number] [facility] 2019-04-07 00:00:00 2019-04-07 00:00:00 Orders Only Doctor Unassigned, [place] 1.2.840.1 63973.1.1 3.104.2.7 .3.495080 .8 [id number] [facility] 2019-03-26 00:00:00 2019-03-26 00:00:00 Refill Vasiliy Frye 1.2.840.1 04155.1.1 3.104.2.7 .3.745512 .8 [id number] [facility] 2019-03-23 15:55:03 2019-03-23 16:25:03 Office Visit Timi Gasteluml 1.2.840.1 74535.1.1 3.104.2.7 .3.359676 .8 [id number] [facility] 2019-03-19 00:00:00 2019-03-19 00:00:00 Refill Vasiliy Frye 1.2.840.1 18333.1.1 3.104.2.7 .3.506986 .8 [id number] [facility] 2019-03-15 00:00:00 2019-03-15 00:00:00 Refill Vasiliy Frye 1.2.840.1 33055.1.1 3.104.2.7 .3.581238 .8 [id number] [facility] 2019-03-02 00:00:00 2019-03-02 00:00:00 Refill Vasiliy Frye 1.2.840.1 13529.1.1 3.104.2.7 .3.877433 .8 [id number] [facility] 2019-02-28 18:51:59 2019-02-28 19:40:22 Urgent Care Unknown, Attending Augusto Solis 1.2.840.1 68695.1.1 3.104.2.7 .3.900539 .8 [id number] [facility] 2019-02-28 00:00:00 2019-02-28 00:00:00 Refill Vasiliy Frye 1.2.840.1 13953.1.1 3.104.2.7 .3.296954 .8 [id number] [facility] 2019-02-22 15:04:41 2019-02-22 16:34:15 Office Visit Vasiliy Frye 1.2.840.1 49386.1.1 3.104.2.7 .3.283112 .8 [id number] [facility] 2019-02-22 00:00:00 2019-02-22 00:00:00 Refill Vasiliy Frye 1.2.840.1 21673.1.1 3.104.2.7 .3.713519 .8 [id number] [facility] 2019-02-15 00:00:00 2019-02-15 00:00:00 Refill FryeVasiliy 1.2.840.1 23558.1.1 3.104.2.7 .3.825808 .8 [id number] [facility] 2019-02-05 19:58:33 2019-02-06 00:43:00 Emergency Jaclyn Culp 1.2.840.1 00487.1.1 3.104.2.7 .3.967593 .8 [id number] [facility] 2019-01-27 00:00:00 2019-01-27 00:00:00 Refill FryeLornaVasiliy Marcos 1..840.1 26824.1.1 3.104.2.7 .3.883238 .8 [id number] [facility] 2018-12-24 00:00:00 2018-12-24 00:00:00 Telephone Timi Gastelum [facility] 1.840.114 350.1.13.10 4.2.7.2.686 [id number] [facility] 2018-12-23 19:36:30 2018-12-23 21:34:58 Urgent Care Aydee Miles, Attending [facility] ana maria Sparrow 1.840.114 350.1.13.10 4.2.7.2.686 [id number] [facility] 2018-12-14 09:54:46 2018-12-14 11:25:52 Office Visit Tim Pinto 1..840.1 24139.1.1 3.104.2.7 .3.191680 .8 [id number] [facility] 2018-12-13 00:00:00 2018-12-13 00:00:00 Prep For Surgery Timi Gastelum 1..840.1 28682.1.1 3.104.2.7 .3.906194 .8 [id number] [facility] 2018-12-13 00:00:00 2018-12-13 00:00:00 Telephone Timi Gastelum 1.2.840.1 67549.1.1 3.104.2.7 .3.718998 .8 [id number] [facility] 2018-12-08 21:12:16 2018-12-08 23:23:00 Emergency Shaka Burgess 1.2.840.1 89679.1.1 3.104.2.7 .3.282702 .8 [id number] [facility] 2018-12-08 00:00:00 2018-12-08 00:00:00 Telephone Timi Gastelum 1.2.840.1 58185.1.1 3.104.2.7 .3.765775 .8 [id number] [facility] 2018-12-07 00:00:00 2018-12-07 00:00:00 Refill Vasiliy Frye 1.2.840.1 10843.1.1 3.104.2.7 .3.814988 .8 [id number] [facility] 2018-11-30 18:18:59 2018-11-30 19:57:43 Urgent Care Unknown, Attending Augusto Solis 1.2.840.1 23782.1.1 3.104.2.7 .3.523859 .8 [id number] [facility] 2018-11-25 00:00:00 2018-11-25 00:00:00 Patient Secure Msg Vasiliy Frye [facility] 1.2.840.114 350.1.13.10 4.2.7.2.686 [id number] [facility] 2018-11-18 15:55:10 2018-11-18 16:43:59 Office Visit Vasiliy Frye 1.2.840.1 30733.1.1 3.104.2.7 .3.213074 .8 [id number] [facility] 2018-11-17 00:00:00 2018-11-17 00:00:00 Telephone Timi Gastelum 1.2.840.1 23542.1.1 3.104.2.7 .3.163917 .8 [id number] [facility] 2018-11-08 00:00:00 2018-11-08 00:00:00 Refill Vasiliy Frye 1.2.840.1 09911.1.1 3.104.2.7 .3.736273 .8 [id number] [facility] 2018-10-22 00:00:00 2018-10-22 00:00:00 Telephone Vasiliy Frye 1.2.840.1 66848.1.1 3.104.2.7 .3.700066 .8 [id number] [facility] 2018-10-01 07:57:59 2018-10-01 08:58:00 Office Visit Vasiliy Frye 1.2.840.1 77125.1.1 3.104.2.7 .3.043094 .8 [id number] [facility] 2018-10-01 00:00:00 2018-10-01 00:00:00 Orders Only Doctor Unassigned, [place] 1.2840.1 72605.1.1 3.104.2.7 .3.155191 .8 [id number] [facility] 2018-09-28 00:00:00 2018-09-28 00:00:00 Refill Vasiliy Frye 1.2.840.1 62265.1.1 3.104.2.7 .3.920356 .8 [id number] [facility] 2018-09-27 00:00:00 2018-09-27 00:00:00 Refill Vasiliy Frye 1.2.840.1 40523.1.1 3.104.2.7 .3.792941 .8 [id number] [facility] 2018-09-26 00:00:00 2018-09-26 00:00:00 Refill Vasiliy Frye 1.2.840.1 81690.1.1 3.104.2.7 .3.814000 .8 [id number] [facility] 2016-06-05 02:04:00 2016-06-05 05:59:00 Outpt Diag Services nullFlavo r [facility] Outpatient Imaging [place] [id number] 04 David Wallace 2016-04-15 15:37:00 2016-04-15 19:35:00 Emergency nullFlavo r [facility] [id number] 25 David Wallace 2015-11-02 21:41:00 2015-11-03 04:00:00 [facility] nullFlavo r [facility] [id number] 24 David Wallace 2015-09-10 19:17:00 2015-10-10 04:59:00 OP Therapy Patients nullFlavo r [facility] [id number] 03 David Wallace 2015-08-28 19:38:00 2015-08-29 01:11:00 [facility] Emergency [facility] nullFlavo r [facility] [id number] 23 David Wallace 2015-08-28 13:30:00 2015-08-28 13:30:00 Outpatient [facility] [id number] 00 David Wallace 2015-08-08 12:30:00 2015-08-08 18:00:00 OBS Day Surgery nullFlavo r [facility] [id number] 22 David Wallace 2015-06-21 19:00:00 2015-07-21 04:59:00 OP Therapy Patients nullFlavo r [facility] [id number] 02 David Wallace 2015-07-16 21:58:00 2015-07-19 17:14:00 Inpatient nullFlavo r [facility] [id number] 21 David Wallace 2015-06-25 20:13:00 2015-06-25 22:54:00 EC Emergency Center nullFlavo r [facility] [id number] 20 David Wallace 2015-06-08 13:15:00 2015-06-08 18:24:00 OBS Day Surgery nullFlavo r [facility] [id number] 18 David Wallace 2015-06-04 13:03:00 2015-06-04 14:58:00 EC Emergency Center nullFlavo r [facility] [id number] 19 David Wallace 2015-05-25 01:45:00 2015-05-25 05:35:00 EC Emergency Center nullFlavo r [facility] [id number] 17 David Wallace 2015-05-16 22:03:00 2015-05-17 05:59:00 Outpt Diag Services nullFlavo r [facility] Outpatient Imaging [facility] [id number] 01 David Wallace 2015-05-08 03:52:00 2015-05-08 06:30:00 EC Emergency Center nullFlavo r [facility] [id number] David Wallace 2015-04-21 21:44:00 2015-04-22 05:59:00 Outpt Diag Services nullFlavo r [facility] Outpatient Imaging [facility] [id number] David Wallace 2015-04-14 20:51:00 2015-04-15 00:05:00 EC Emergency Center nullFlavo r [facility] [id number] 15 David Wallace 2015-04-13 17:31:00 2015-04-13 19:19:00 EC Emergency Center nullFlavo r [facility] [id number] David Wallace 2015-01-04 13:15:00 2015-01-04 17:23:00 EC Emergency Center nullFlavo r [facility] [id number] David Wallace 2014-11-16 17:12:00 2014-11-16 20:31:00 EC Emergency Center nullFlavo r [facility] [id number] 12 David Wallace 2014-06-28 20:08:00 2014-06-29 17:50:00 OBS Observatio n Patient nullFlavo r [facility] [id number] David Wallace 2014-06-23 13:15:00 2014-06-23 20:26:00 EC Emergency Center nullFlavo r [facility] [id number] 10 David Wallace 2014-06-07 20:59:00 2014-06-08 01:30:00 EC Emergency Center nullFlavo r [facility] [id number] 09 David Wallace 2014-06-02 14:45:00 2014-06-02 15:52:00 EC Emergency Center nullFlavo r [facility] [id number] 08 David Wallace 2014-05-09 23:32:00 2014-05-10 02:50:00 EC Emergency Center nullFlavo r [facility] [id number] 07 David Wallace 2014-04-17 19:23:00 2014-04-17 22:30:00 EC Emergency Center nullFlavo r [facility] [id number] 06 David Wallace 2014-03-06 23:36:00 2014-03-07 00:58:00 EC Emergency Center nullFlavo r [facility] [id number] 05 David Wallace 2014-02-20 23:07:00 2014-02-21 01:06:00 EC Emergency Center nullFlavo r [facility] [id number] 04 David Wallace 2014-02-07 21:16:00 2014-02-07 23:22:00 EC Emergency Center nullFlavo r [facility] [id number] 03 David Wallace 2014-01-25 22:44:00 2014-01-26 00:16:00 EC Emergency Center nullFlavo r [facility] [id number] 02 David Wallace 2014-01-05 14:01:00 2014-01-05 17:45:00 EC Emergency Center nullFlavo r [facility] [id number] 01 David Wallace 2013-11-24 17:22:00 2013-11-24 18:59:00 EC Emergency Center nullFlavo r [facility] [id number] 00 David Wallace 2013-02-08 11:33:07 2013-02-08 17:33:07 AUDIT UMBERTO UMBERTO [id number] David alcazar Rodrigo 2012-06-15 20:52:36 2012-06-16 01:52:18 AUDIT UMBERTO PEGUERO [id number] David alcazar Rodrigo 2012-05-25 20:30:28 2012-05-26 02:30:11 AUDIT UMBERTO PEGUERO [id number] David alcazar Rodrigo 2012-04-29 14:15:00 2012-04-15 15:30:47 FUP, Provider: Martha RAWLS, Status: Pen, Time: 2:15 PM SUDHIR UMBERTO [id number] Flavioharriet alcazar Rodrigo 2012-04-15 09:31:05 2012-04-15 15:30:47 AUDIT SUDHIR PEGUERO [id number] David alcazar Rodrigo 2012-03-31 13:15:00 2012-03-30 02:05:49 FUP, Provider: Martha RAWLS, Status: Pen, Time: 1:15 PM SUDHIR PEGUERO [id number] David alcazar Rodrigo 2012-03-29 20:06:05 2012-03-30 02:05:49 AUDIT UMBERTO UMBERTO [id number] David alcazar Rodrigo 2012-02-17 19:05:02 2012-02-18 01:04:47 AUDIT UMBERTO UMBERTO [id number] David alcazar Rodrigo Results Test Description Test Time Test Comments Results Resul t Comments Source XR Chest 2 vw 1 21:01:03 CHEST X-RAY PA & LATERAL 06/04/2024 3:00 PM Ordering physician: CARON TOBIN CLINICAL INFORMATION: ?Cough TECHNIQUE: ?PA AND LATERAL VIEWS OF THE CHEST COMPARISON: Chest x-ray dated 02/07/2022 FINDINGS: The lung patterson are clear. ?No pleural effusions. ?No pneumothorax. ?Thecardiomediastinal silhouette is within normal limits. ?No acute bonyabnormalities of the visualized skeleton. [facility] [id number] 20:40:57* Test Item Value Reference Range Interpretation Comme nts SARS-CoV-2 Rapid ID NOW (test code = 80335-6) Not Detected Not Detected VIVIENNE (test code = VIVIENNE) ID NOW COVID-19 As say is an isothermal nucleic acid amplification test intended for the qualitative detection of nucleic acid from SARS-CoV-2 viral RNA in nasopharyngeal (MOVING VAN DRIVER) specimens. It is used under Emergency Use Authorization (EUA) by FDA. The limit of detection (LOD) of the assay is 125 Genome Equivalents/mL. Please note that a new specimen is requested for testing, if clinically indicated, on tests performed past validated specimen stability time. A positive result is indicative of the presence of SARS-CoV-2 RNA. ?Clinical correlation with patient history and other diagnostic information is necessary to determine patient infection status. A negative (Not Detected) result does not preclude SARS-CoV-2 infection. In patients with a high suspicion of SARS-CoV-2 infection, negative results should be treated as presumptive negative and a new specimen should be tested with alternative nucleic acid amplification molecular test. Indeterminate: Unable to generate a valid test result on this specimen. ?Please collect a new specimen for repeat testing if clinically indicated. Lab Interpretation (test code = 74243-3) Normal [facility] [id number] 17:58:52* Test Item Value Reference Range Interpretation Comme nts POCT Molecular FluA (test co de = 03797-3) Negative Negative POCT Molecular FluB (test co de = 62262-0) Negative Negative Lab Interpretation (test cod e = 07346-6) Normal [facility] Tibia fibula 2 vw [id number] 20:00:04XR TIBIA FIBULA 2 VW LEFT COMPARISON: No comparison available Ordering provider: LUCY MELARA CLINICAL INDICATIONS: fall TECHNIQUE: Appropriate radiographic technique and conforming to ALARA FINDINGS: ? The tibia and fibula are intact without fracture or focal bone defect. TheAP view of the kneeand ankle are unremarkable. The soft tissues arenegative.[facility] Ankle <3 vw [id number] 19:59:16XR ANKLE <3 VW LEFT Referred by: LUCY MELARA CLINICAL INDICATIONS: fall ? ? COMPARISON: NoneFINDING: ? The ankle is intact without evidence of fracture or dislocation. Thetibiotalar joint is n ormal. The soft tissues are within normal limits.There is no radiographic evidence of arthritic change. The bones arewithout focal defect.[facility] Foot <3 vw [id number] 19:58:39XR FOOT <3 VW LEFT COMPARISON: No comparison available Ordering provider: LUCY MELARA CLINICAL INDICATIONS: fall TECHNIQUE: Appropriate radiographic technique and conforming to ALARA FINDINGS:? The foot is intact without evidence of fracture, dislocation or focal bonedefect. The cartilaginous joints are unremarkable. The soft tissues arenegative.[facility]ervilleCOMP. METABOLIC PANEL ([id number])2023-12-31 22:53:54* Test Item Value Reference Range Interpretation Comme nts NA (test code = 1227860509) 139 mmol/L 135-145 K (test code = 4735427466) 3.0 mmol/L 3.5-5.0 L CL (test code = 9464011084) 102 mmol/L 98-108 CO2 TOTAL (test code = 4534549415) 26 mmol/L 23-31 AGAP (test code = 9682226301) 11 2-16 BUN (test code = 0352015950) 6 mg/dL 7-23 L GLUCOSE (test code = 6973696420) 126 mg/dL 70-110 H CREATININE (test code = 2160-0) 0.83 mg/dL 0.50-1.04 TOTAL BILI (test code = 2060771451) 0.7 mg/dL 0.1-1.1 CALCIUM (test code = 6176774701) 9.3 mg/dL 8.6-10.6 T PROTEIN (test code = 0177214462) 7.9 g/dL 6.3-8.2 ALBUMIN (test code = 0259495380) 4.7 g/dL 3.5-5.0 ALK PHOS (test code = 0081641575) 94 U/L 34-122 ALTv (test code = 1742-6) 23 U/L 5-35 AST(SGOT) (test code = 1702131601) 23 U/L 13-40 eGFR (test code = 88216-7) 89.3 mL/min/1.73m2 Lab Interpretation (test cod e = 20319-3) Abnormal [facility] CERVICAL SPINE WO [id number] 22:38:49EXAM: CT HEAD WO CONTRAST, CT CERVICAL SPINE WO CONTRAST HISTORY: Head trauma, moderate-severe TECHNIQUE: CTs of the head and cervical spine were performed withoutintravenous contrast. Sagittal and coronal reformats were generated. COMPARISON: None. FINDINGS: CT HEAD: The ventricles and sulci are no rmal in caliber and configuration. Nohydrocephalus, midline shift or pathological extra-axial fluidcollectionis present. The basal cisterns are unremarkable. There is no acute intracranial hemorrhage or significant mass effect. Noparenchymal attenuation abnormality. The isabel-white matter differenti ationis preserved. The mastoid air cells and paranasal air sinuses are clear. The calvariumand central skull base are unremarkable. CT CERVICAL SPINE ACDF changes noted at C4-C6 without hardware complication. The Vertebralbodies are normal in height and alignment. No acute fracture orsubluxation. Normal alignment of atlantoaxial joint and craniocervical junction. Mild degenerative changes at C6-C7 manifested by disc space narrowing andmarginal osteophytes The prevertebral soft tissues are unremarkable. The visualized lungs are clear. [facility] HEAD WO [id number] 22:38:49EXAM: CT HEAD WO CONTRAST, CT CERVICAL SPINE WO CONTRAST HISTORY: Head trauma, moderate- severe TECHNIQUE: CTs of the head and cervical spine were performed withoutintravenous contrast. Sagittal and coronal reformats were generated. COMPARISON: None. FINDINGS: CT HEAD: The ventricles and sulci are normal in caliber and configuration. Nohydrocephalus, midline shift or pathological extra- axial fluidcollectionis present. The basal cisterns are unremarkable. There is no acute intracranial hemorrhage or significant mass effect. Noparenchymal attenuation abnormality. The isabel-white matter differentiationis preserved. The mastoid air cells and paranasal air sinuses are clear. The calvariumand central skull base are unremarkable. CT CERVICAL SPINE ACDF changes noted at C4-C6 without hardware complication. The Vertebralbodies are normal in height and alignment. No acute fracture orsubluxation. Normal alignment of atlantoaxial joint and craniocervical junction. Mild degenerative changes at C6-C7 manifested by disc space narrowing andmarginal osteophytes The prevertebral soft tissues are unremarkable. The visualized lungs are clear.[facility]ervilleCB WITH [id number] 22:38:36* Test Item Value Reference Range Interpretation Comme nts WBC (test code = 6690-2) 10.66 4.30-11.10 RBC (test code = 789-8) 4.18 3.93-5.25 HGB (test code = 718-7) 13.0 g/dL 11.6-15.0 HCT (test code = 4544-3) 38.7 % 35.7-45.2 MCV (test code = 787-2) 92.6 fL 80.6-95.5 MCH (test code = 785-6) 31.1 pg 25.9-32.8 MCHC (test code = 786-4) 33.6 g/dL 31.6-35.1 RDW-SD (test code = 62045-9) 45.1 fL 39.0-49.9 RDW-CV (test code = 788-0) 13.2 % 12.0-15.5 PLT (test code = 777-3) 326 166-358 MPV (test code = 45081-7) 10.1 fL 9.5-12.9 NRBC/100 WBC (test code = 5104163005) 0.0 0.0-10.0 NRBC x10^3 (test code = 1893891805) See_Comment [Automated messa ge] The system which generated this result transmitted reference range: 10*3/?L. The reference range was not used to interpret this result as normal/abnormal. GRAN MAT (NEUT) % (test code = 770-8) 65.2 % IMM GRAN % (test code = 3994727817) 0.80 % LYMPH % (test code = 736-9) 26.1 % MONO % (test code = 5905-5) 6.5 % EOS % (test code = 713-8) 0.9 % BASO % (test code = 706-2) 0.5 % GRAN MAT x10^3(ANC) (test code = 0958313300) 6.96 10*3/uL 1.88-7.09 IMM GRAN x10^3 (test code = 8441173258) 0.08 10*3/uL 0.00-0.06 H LYMPH x10^3 (test code = 731-0) 2.78 10*3/uL 1.32-3.29 MONO x10^3 (test code = 742-7) 0.69 10*3/uL 0.33-0.92 EOS x10^3 (test code = 711-2) 0.10 10*3/uL 0.03-0.39 BASO x10^3 (test code = 704-7) 0.05 10*3/uL 0.01-0.07 Lab Interpretation (test code = 99000-5) Abnormal [facility] PROCEDURE [id number] 16:14:29Ordered by an unspecified provider.[facility]ervilleFL UPPER GI [id number] 19:55:34EXAM: Upper GI examination HISTORY: ?nausea and vomiting 2-3x daily x3-4 weeks; TECHNIQUE:Double contrast fluoroscopic evaluation of the esophagus, stomachand duodenum is performed with patient in gravity dependent and recumbentpositions. Spot views and cine sequences are obtained in uploaded to [facility]. FINDINGS: Changes of anterior fusion of the lower cervical spine are seen. The esophagus demonstrates normal mucosa and motility. No massesulcerations or strictures are identified. No hiatal hernia is seen. Mild gastroesophageal reflux is noted. The stomach demonstrates normal mucosa and motility. No large masses orulcerations are seen. The duodenum is normal. Normal mucosal folds are seen.[facility] [id number] 20:55:00* Test Item Value Reference Range Interpretation Comme nts Glucose Lvl (test code = Glucose Lvl) 92 70-99 BUN (test code = BUN) 9 7-22 Creatinine Lvl (test code = Creatinine Lvl) 0.90 0.50-1.40 Sodium Lvl (test code = Sodium Lvl) 140 135-145 Potassium Lvl (test code = P otassium Lvl) 3.3 3.5-5.1 Chloride Lvl (test code = Chloride Lvl) 106 95-109 CO2 (test code = CO2) 30 24-32 Calcium Lvl (test code = Calcium Lvl) 9.4 8.5-10.5 AGAP (test code = AGAP) 7.3 10.0-20.0 eGFR (test code = eGFR) 81 [facility] [id number] 20:55:00* Test Item Value Reference Range Interpretation Comme nts WBC X 10x3 (test code = WBC X 10x3) 7.68 4.15-10.55 NRBC % (test code = NRBC %) 0.0 <=0.0 RBC X 10x6 (test code = RBC X 10x6) 4.09 3.74-5.22 Hgb (test code = Hgb) 12.4 10.8-14.8 Hct (test code = Hct) 35.8 33.9-45.4 MCV (test code = MCV) 87.5 77.8-97.5 MCH (test code = MCH) 30.3 pg 24.9-32.6 MCHC (test code = MCHC) 34.6 30.1-35.0 RDW - SD (test code = RDW - SD) 42.5 37.6-49.1 Platelet (test code = Platelet) 261 191-422 MPV (test code = MPV) 10.9 9.0-12.6 [facility] Pathology [id number] 20:37:21* Test Item Value Reference Range Interpretation Comme [facility] Case Report (test code = 2501449333) Surgical Pathology ?Case: [id number] ? Authorizing Provider: ?Timbo Childs MD ?Collected: ? 09/10/2023 1053 ?Ordering Location: ? ? GI Endoscopy OR Department Received: ?09/10/2023 1356 ?Pathologist: ? Gagan Allen MD PhD ?Specimens: ? A) - LARGE INTESTINE, CECUM, polypectomy cold snare/ eval for adenoma ? B) - ILEUM, terminal ileum forcep bx's/ eval for IBD ? C) - COLON, right colon forcep bx's/ eval for IBD ? D) - LARGE INTESTINE, TRANSVERSE COLON, polypectomy cold snare x 3/ eval for adenoma ? E) - COLON, left colon forcep bx's/ eval for IBD ? F) - RECTUM, rectal forcep bx's/ eval for IBD ? Final Diagnosis (test code = 5450021300) b3iymGRiZPTzy4cqEBZgtO FuZzEwMzNcZnRuYmpcdWMx PGbrqrIcAWjgcMdsPME2WP FnBF4tqByuaLf3iNtlVVXt sqB6mLSdDSevz7zvYYJ6q4 axpjknLNVcEIegHh3zsWFg qUryGeYpTANvJIh0eI93ZN QkbN5uzDMiRDk6KAEnqQLy hhGuUyUuTJMxjRMhlUY5DB ImPJ2ruekqABmlVMlhSSVn ynS0ANFbpMGlU7EsTEKnVT 2hmjldOPS7EDicDAHuJTO2 HrJaJRLpd5Ulnvl0GrWzoL FyZFxwbGFpblxmczIwXHBh fbWPZfWBW2vHNxeoY7HAAW 5pLJVRVTZuT53DDyPxYW4K YYFSQ7JHQQc7DQUyacPrWE OzUB8rGAVPQBmDWwtXBQ3B QvXCIBPUI47NBXAlcbbfTX AqWh3zF03IKCkpCJ7RIBRA MA9IYODNJOJQKC1IGNVNNW VVTSwgQklPUFNZOlxwYXIg VVShEJCoVWiWPLHOMR9JE1 7NITLVVPELUQ9FTAQDZFpE CA4ODESaA3uTFpcHJ4qqMD XoYSVjMGYiVF7PBJSWFIPV FnCLST6BMYbFLROGHRPVNH yDRLCDEHMlvzujTSQtHy6c R17ZL13zELPYL9rHKKYIWK 6EO3z1FNUyicPiVPZpGC2j O65BO85LWwBGCGYNT6TzV6 yPWQHGIlRPBBDDM6dCP9aQ VUCMNM1PZJGiuRCrDVQkUH AgLSBOTyBGRUFUVVJFUyBP RiBJQkQgSURFTlRJRklFRF qcMEQyzUNcXPEhQPYHFP7Y SCPIXuKEJ4HHTeFOACHJH2 xEIFNOQVJFIFBPTFlQRUNU Y61OXSyfQuqsVWOoNJFjHP KzTU2RFWYDSExSGPTCCHjG OK7IViGPFnBHQDXQFYVQBI UQII4TVONTXCEnjezsWUGz TA3dN17OJ30iXRdVZpPvHW LOP7TUVCzssGWyUQJrBOFl ZUNTK9cXXngHKF8YT39EFP ABZIQVPR2MGYCSDBiJBB1D RUClE9yUYzqJM3foVDUrQA WrDDAtCC7LPDAOAEYXBvMN QG5HZLyOMFZYTCJOZAhUCD QZIACgygngQZMeWc7fUxZV EGNPDRRCWQ6EC0y6PCYdnp PdZKMmOL6nKbZTCQZCCM6R K73RNMUSRUHDWU3HRWCWAB gKNB8LRIRqI3hCAgzZC4db OOByYNHrKOMmDJ7YRDKFSE BRLqWJFS4UJUbFCXEUZPJM VElGSUVEXHBhclxwYXIgR2 maItGhnC2cXwOfkS9oYV7K CBAcqajmVHB8q5culUTkZI QokSWaWtGdMBJjWHUmr3ka ZGVmbGFuZzEwMzNcZnRuYm pkmOLwRCFjBiLwq6yrp895 bETfd3wxERLmWkA7eAWeBF IfnEqdvnd6mUqoOtAiDXWe d2hwkwBsHcVtMKEyLHLiBG EqhHPcW528UTXzQVjvv3lc u4NlEFUadENje6U3PPWGMC pdCeLzS310i7mwe6yytmPx pRE2NHDsAIJ1WXyaemJybt C1UEpaeTAkQcZ9KKwufqLt FUoojrVzulLwOlz7WBUuO7 48AZH8sDwbj3teCME4ABYd VTSpRqfbAi3bbBUpU209XZ SzVCCZOJSgaMt9UTBwbmEx bpDdmNYXa775Z746v8vnAY WrytIhaHfXnctaw9imC700 XHBhcGVydzEyMjQwXHBhcG QqcZO6IBAnNQ3tahzoBHvg BLkiRJHsrlP7FAGslYElC2 UaFZNjXL2cgzzvVQF1KOwp IPGeMNG8IvJoXGRzc1Oitv v5TuMnlw1yup84WEE7i5Dr iQxxVCP8LGV1NjZkRc3grM RdWSFoUK9lYeNwjNRlHQWo zn84gXjpVWarnxNxbB7uFw NwFTLluOCkPALmIT6ntJMv WLGlyK7mxvfzAVRoLhScfy snNXLmeUtwycHtVh7qbRhs TRE5URweK7wnfY3vSxZ2BF ijG3cetM0aKTr5AFmipWF2 XBZgkU6pLD6njecso7lcWX nsKPtkYCQzdkD4ylL7EHDl xPLeX5QjoG7zFGCzZJ5ktt soo2kzVWZ8CDrdQKTwGGJ5 EoYiEUBcf6Wgczu2ZgYbd8 MbyGPpBPsqZ19dn940HDBt geTnP6cadIFbmqxexJHsuq zxNYdxhjS0OJHnKRShXVbn XGYxXGZzMjBcbGFuZzEwMz NcaGljaFxmMVxkYmNoXGYx NItxV1ztQwNiD5BfFLNuAo EvhKKeJGmifFG9YAFnUISh w99fwYy8OIMhubryx4BvFG AybKAafFTanX2hgiDyg8xs STDeUQHtYQDtY0KhIZC5mD IjKRIurXMegYC9JR8yxmLi OR5vRXXhKxsmogHauERhzm PkTZXgQRrfi3azSS8eIWNu jLalwJ8vnCA0JPFpb6zqmJ TkpQVlh6qke8DwsyYgPPcn WVIjORlwHEGpUXHjOG8rJK OdkYCcbgLxf3K6PtizhDBq agxbLdwdthR7FLulylzxTC ExHJzuL2zfYeCcHWBljWbr Lgsqy0LdBPBnHRXcCnbbsA FyfX0= Clinical Information (test code = 4366294842) Diarrhea, unspecified type [R19.7]Lower abdominal pain [R10.30]#1 Eval for adenoma#2 Eval for IBD#3 Eval for IBD#4 Eval for adenoma#5 Eval for IBD#6 Eval for IBD Gross Description (test code = 9660990317) f9kahQZePTTozKDLYZU2FS ZsPK5vrZgqpJp4tGrtBAKf spX0dFDcZNrwr4roNTZ3d1 dndfUTGpzpEZYlDD4bTAmy RUKxDJ1vNcIzCBQvNcLsAA BhcGVydzEyMjQwXHBhcGVy kDR5WJKlEX2afcroNPnnLA jrIJPeofM1BSTkjNVoE8Vy MTBvIP5qspchPBE5VSRYMv buAk8foDJboNamHlLrGfPi XDGyOMNlAZPkv4esgdVAkd snpZz5fZ0DBCNzD6AsIV3U b9nzZWIenVQyMXJ2WFgfe7 myKQiyGVX3LVBjJCVoFKWb RF7MWuCuOGOiTJa2SKH3Xi V4JKh5OWKJRKBhTEU4ZXte QPB3LKm3UJUzQP6yCXuwfK LcCQsjWqtkDNyhU554ZChv KSDaW0TwV5JiHYroJrAgZT cnNHApATRxQCjdULVqP8SP FHSqGCI1IuYqUKSyPVn0QE p5RP6EKtYkJHDnYpB1Bxk3 IZUsRSz3PXoeZD8GNODjIG n7STU9QfGkEXK1InBoUOq7 IDIgXFxzcyAzIFxcZmwgXF xxZ29ovSIpGYJMRfflnJRw blxmczIwIFNQRUNJTUVOIE WonCInE9inCpZlKfpuOPFx DQpccGFyZCANClxwbGFpbl xsdHJjaFxmczIyXGVwaWNO JPV6XK5eIXTHRiqqxVQtFG Ndb5UeTVdvgHsvGXCjLrZd JLkTrYIwrX0ubrNTUBuhHH UlX6CuvxMzYLohZPAuve5g tXsnVVokNuWkUZPgd8x0cP O8pVLdqTC8sTMzzQedTC4h eWJxUELWPS96pJRnkwogOy OvL3QjKTPjiIvxUFH7w062 TZBosWFom30wbbOjZMYkuD Wry8OyXIHghs9uAUJyHH9j WMDjqtAqq6XhWA3dTIThl2 prC9bvFVvujpQpiAeicmSz aWVjZSBvZiBwYWxlLXRhbi Sga8T2DYVdq1D7MNHyNG95 HBduSY37ULzqKS2sZNYiHW S8iUnjaKDbslLwvRs9GOQl QUD9vPXebVnfUFLzCyzqpN D6KCBcKvIkrxZmi8FutUi5 kEDwMUmhLHJquH8swE6xJJ FeSRfaZBNsK52op4ZTe1Ob n6egzHvqi7GbzDYaJP6yrQ CfHT0Sb2kgPSQpzSYdWPM5 FVtzw9pwFHpmRHI8ADSeCr CjHUWtAW3HYgZuTYInBAa3 POZ7UrH7JPw4QMGEOxUmXx TmMuOlScf0NbjxLNu8RLw7 IWhBBkDeGGQ5JNYxLDguWD Y9DFF6RPzbyIQlJUloi2Py PkXsMOWrDGzdtlG3XSYgnc Hne6PtBAEmNZKbO1elLsWu NSANClxmczIwIFNQRUNJTU VOIEJcZnMyMlxwYXIgDQpc cGFyZCANClxwbGFpblxsdH JjaFxmczIyXGVwaWNOZXN0 EG6sXICIPtloeQTrOBOks1 OiYNexnHbxUVDpLvAic7Gw MFxlcGljWHNhMzAgDQpTcG MskX4usyOOEPwyXZRxW2Kn cjTtCUprRSNkyx9osYxkLV fcOnEqLWJwh2v0nVK4oIUk vLA1xVKbjVocKZ2uiWVcVQ FYWS11pTYsosoxHuHsny3i bmFsIGlsZXVtIGZvcmNlcH IpWdxgrAH9L8C9SDikVo9e XFxARYRnFE5qPLNoxvQnz4 KhNZ2qFHUluHfaC5ZsHR8u IHBpbmstdGFuIHNvZnQgdG yur7JsSAwfAqAspKIzKmSk yYCnTdKzO15pcW9eZXpxrj RdWLOlDHJ1nXbgoJTabaCi bXh9GNWsCLN2jSPuhOtaFU ZtZcihtPK1VTWtBfWpocTh g9PtpGp6eEEwRAznDYBqzD 2gvJ2xDzOdCOntUMSeE37y q6XXm4Llt6wsaKvsc3VfgR AqEW1kvIMkEN9Zi2fwRFFs oHPfVJP2SHcwn9goGJtkXF R8HFGiUtLdSXMbHC2ITqOk NXVtLQf3ALZ4HqC2UKj4CM EEGwCvPyPaWsOiUmq2HKSl TRb8GKi8ZCpHGbQfOII6ZC AzDIvtTJV3GCW1MCcgoYFd GMwgd0KxSeWjWRWtOZeoib J8OHZefmMnd3WmLAPtPMRd A6btGvQeIKIPGwdxtxKlEV NQRUNJTUVOIENcZnMyMlxw YXIgDQpccGFyZCANClxwbG FpblxsdHJjaFxmczIyXGVw eHEFUVH4XO3kDJPFBzneiA GyQZGkz8FmDKjtfHshNRIr ZuGnu8SpOOlvpDaqKNWyNb AoSYsWeMJptM3hswTVQHhm LFUvL4BgqaJbSWivBQOwwh 9tdRenLIcmTnVyQKEmz1q6 xLX8nJJfkLE8cUKjpGyaCH 2ugYWlTPFEOP17fEZqzcse QoIpU5h0PDRxtZ2qZPBwrr MpiPGfWrayiCB0V5J5WWlq Ho6aANkWJMKrVT2xGWHhvo Zfa5TvLF1oZF62bBCeqFtw IHBpZWNlcyBvZiBwYWxlLX OspeMna8B8FBWjw0V6BOOl UZ47IIeiDI8eJDfwZW8vLH PmZKciONMuL3SlA9K4NJsl u0emA5nhzYJmPskzgSRiUG GdvCkco0CapOBgJIFce5Sn pCNuMSnlGD9lBAJ9Qb8ljX KgJEEfdxD0o5GiCPplXBNj Yp2WIKMvgDFBQFW0WN8vDX ohPEGlH3UmC5FqjdL2GJBq otAGMfmlXhmecQmym8BpwY BcXHNnIFxcaWQgNTEwMDIg PLjtVwMCPrMkOyFeWgI6Rx X6ZCBeCOe5JEalD6VFALXx ZDR5MmF2XSS2HrP9RHz3LP USJk9uOgMgBjU7DzodPZC7 NDUzNCBcXHQgMiBcXHNzID FbWEufuGSmVR0onFxcXLAd SXSjVXT8FZRdbISGx9CaUQ NxYLdgQvSmCNQVVXAIVC0X LtVWAIApUbQssSQkTW9VYY GwcyPgQCnyrFgvxP3tcRRs Q4ydFpSyPgpsrCdwJqZpcN RvYzEgDQpcbHRycGFyXHNi OaHbWZYgR9kxRzUyTOIzMv OfDMDkJ7xyVOUkRQ8DC1Tf H8vuNV0gIDItscKuRTGakR WaZDAtloNlx1YqCYjhvwEv YWJlbGVkIHdpdGggdGhlIH RsfBsupxLqacXyFS4fHNKM FXRglP5bXFSdFRA0vyFmy7 FqwcHeVUOsuT4dKPMxyXym AQW8o368ZQMdcDYsb34uvc PxyXLlF1W0VTabHs0kGYWs BO8yfODcAYXgZJMwa00fqZ C2abDyHlQnlAw8hHGgLQSr wVJbDKDhq5FjpXhdtd01JK 8tl95xgUH1lRLpiSVzRUUw yVKbAvzuoMQrJcBkP54waL 6zYRuekjBfUSBsNMA1aYgd nERettOpwFa9GDVmILK2fV DwsYnqVMPtPyryhWR7KQQo VqHwfoLvp3IbrGd8sRIpLA yfBELasR7eiW0rHJAkFOju DIMwU18nh5ILf2Sef2hhjM htk5TkpXEeOB2frCJwNV6D v3lxAESfzDQmFET6LPwhl1 fvIKihHCM2RBNbFdNcVJSw VH8FPhHgNSNhQGy4XWT8Tq Q4FOi6VTFUNaZaYfAnSbMn MeraOgPoFNg6PIw8SKkJWe YaLRX9ZGW5FHT9VGM2CXB7 WBbmyQSsQWiwi9JgZhSwLF SrNLqchdW2ZFRimkMsn5Dj TWYbVPXoD9amXuSgBVFLJn xmczIwIFNQRUNJTUVOIEVc ZnMyMlxwYXIgDQpccGFyZC ANClxwbGFpblxsdHJjaFxm rbPxHATwmPGEKNL4PN7cLO TOPbvwhUNxUOYwo9CjPQky nMjoUREnJkShj0IuICsumC rdJQZnOgBiCRtOlWQliW0s ccKTBBugGGKmL5LaslMpNJ nmPCZjgj8phWzsVZqpKsNb YHVjg3g3dPU0fOCwpSC7tT LpaJsqUO9wyJXtPIECUN89 pUVekayhJzdkFkHqT83zc7 0lCx7aE9DrbjUujL6df3xy XJCzpRWhe5QvQOQLVzNgse PlW77jn9agySOyc6OcFrZk ePBpHPQjh9TfiWDvWE09NA 5zr28ooYI4vTQusBHfORGf EbE8ZVNkVsN9COAiUKOmvU HdvfJbZ0qzFGsynSSpDHzk aWNoIGlzIGZpbHRlcmVkIH Rdxc88T0okJGYuoO1kt4vq MrHiECYmQCNblUKmgSR5DP YcxA3jgP44tcZlraWATZ8B LjzpvLluApHphAIuDqJ1YN LhhYIvHQF5EN3nsBqbCRBu TWc1OWhuJCRyR0LkM3NcCB xzZyBcXGlkIDUxMDAyIFxc GRThL1WARWPlXMQ2BzAjHH HzEYr4KIg6QC0PVgBdUTEb RuV6UAJhFZIkIVx9LJbgUR 2JLSBoQKm9TAGlIXBiLWG8 PxPiVYr4FGFhZIhrrkXmOW ruVnnlRVesX67qoFMjBJbv UuTsSQehnSlwMUBbKAT0AN 1WNQLaCiPkE4DJQ4gIUO5m RlxmczIyXHBhciANClxwYX SqTH6EDUKuAZsyNMa8rdZx IGRxRyNmXVNtZ25pj2XSh8 VgTO2PGLu6lqBizvkcSaRn EQDboRCZw7WrIOPWXyTxEL NpbWVuIEYgaXMgcmVjZWl2 ZSJkhR3iBo9dzWCfhT5jkG MeFEpkFET4uHFwBMVlURGr UHApFQ83I5PvtpTpNJgjRR ggbnVtYmVyLCAicmVjdGFs ICVhnjTrxLAmJcjdrML0C9 B9JDasWw8jOZdLWXIxDM5w WLGgecXcd7PqWP0pUQKpdB bxR9MzIH3tGINavRDarSMj ZKPcRsXpwVahc3NyYFgvZZ xfIS4nSLbtKJ1mHLAlNSdv AXCkH8LlD2V0WKpqm1bjI5 ggaXMgZmlsdGVyZWQgdGhy l3ZylXUxGGYyh1QesHYkRG oiTC8rXTV6Ub6vfUArDINk ovL9p5RzGRuiIRWnRfsyFS IgDQpccGFyZFxsdHJwYXIg GNvutOZhCH7UMAJxRwBuLZ LoP0ewDFApUM7FTgNagnHn v1HhEULspMUiCPZBYNRaJW 9KBNaaCPNlIQLISFkxnX2I ZOWqkKNTXPT6SM1iGBwvOJ WvF0DvP5KeedD9g9fglWdl h2XmlHQxVK6rhXKyKR1YJB BhcmQgDQp9 Disclaimer (test code = [id number]) g8fkvKUbMUFlu5faUYKfmF FuZzEwMzNcZnRuYmpcdWMx NFmevpVnYOwtl8YuG4XzPo AwMFxhbnNpXGRlZmxhbmcx VXRnJDL6pjBdMDZyGEdvRC ChODdtOy8wtOKcrSjgQdWh FDJso2mtdoAUKEusSkTwV2 04URLfGYjxf8nix3PeOKSv mNTyj6B1IKLXsgaxyWb0dM ntV60wy6F9FvvdM7hxUSNl IGNmW9EoUA0bFCLgWrp8NL R6NOV8OEUlUCYzQ5PyKD1z MFVztOHzCVj9t4rgcLyiHZ RoLUY2i9opCCrbgeBpOG4y uo0rbRc5a2cyiuOdXNKmQW ZdpELHHDXlH9JmmKrhXk7h tWu8qNxnMvhcOYH1Fyb1BG 1jeq60tgr6aBgkNFJcxfto QmN5NHrkTARgwxwdRWl9XI tdXPXsmSI6SFSweTNaX7Qb OKEaVF1abal5TBE0VBfnEU IsCwE7LSYpyFGiJWKecVry DEgpy054EIW5MuFzNO9rG8 Zoa1I3sQ8psCFrMCJupBAp JzVcFZZnpx4dqRHgZPksf5 QsTXZ9afY7kJHhhISuLCMp KR24Giqrc2LuGqnnh7FuX7 6fwTE3ZVjhh2ocDQ2eQxH3 rjCuCKhyr5pgdJ5eUfA8SW wiUQ3vZD7iHFFnzG6xatir XHBnYnJkcmhlYWRccGdicm NsGk9mcOeeNLQ6MJaqS6uy pI6aEyN2UWpvB7byeT5sBA l7GBvyiCJ2RYOfiL3sCV1y otyle0adTZwrBIyhHEXxqz F7bfA5YCQvsJHrH1ZstR5o JDLuOH7xqedqv3kgFJN3CG wzOJTfWMO7KrPsOLLmp9Gv xat6TeXle6DqiNYgCBqbI2 0vo205KBBxffCoR8rzdURd plxsvNGfhnhsGAkdrqA5SH CtcjWxf3XhKLNmZYJ0XEnt UJjrcBGnZLIoxIsgi4tbT5 RscGFyXHBsYWluXGYxXGZz MjBcbGFuZzEwMzNcaGljaF awRRgfGbGhQMIeIRdoE4jy UkFgU0VnSBWvWzVgaDXaB0 ggVGhpcyByZXBvcnQgbWF5 RNbnZ8f1WSYbefIwmGd7ar UeDlCqLIJtXCV3JKnypLOs YDGcx4KepoabpXCxSz9diQ ZvTPLodQ1sXCPbZDQtLBni TW3thLt0HBBAhNLbdJOlKd DNOSQyPG98ihQyPLYZzwmd u3O6PQhoSVNvq4JbdBWnQ2 yjg5PgQLAuc65qMV8rp0J1 u8piONT5YG4vk3ZhHFOjiP NtaFLmNGVhd8Coeficv9Ys MRMcxiMlp1ItVAPvqgPxtK VzQKDczrElqg1itzOqJAYm YJTvR9YmjgrxxMfsjxCeJT Vgau4nlfRjKXF6SIZJIUFt BEXui4NhkR9lzYAODOS9wF Ywfa0rthRIiMIwEYYdcu33 RCDvBY8pI3wwUQNbKHGdmr KnnKGqh7YpRUPzhYE9xRCj TH9ERnKDg25gECDuWUCLlp VzRXUtpUcmmYG7vwV1vX7f IChGREEpLlx+IFRoZSBGRE WuRG5wfcZzv3WpgmGqpFjk WTXhrUOlv1KirGSqw5CplS kvq2TopKPawHYyUB3iJOTr clxwYXIgVVRNQiBMYWJvcm F4t9UtLCMrDAMoWNE7oUab vwy1QPGqcN0kPJEnE1ndfj hsQTqvWNUni0VxaH3cxHWP iDKdg4LaaRJqrCMSvUPpHI 4wccLjHWzWWAmOXHW1ygBi VXYed8KiQXmoI7zxA95dpQ tivAa2qMJ7OSQ5zP3tQsu+ IFxwYXJccGFyIEFwcHJvcH KtOPNlwCdnblKvK4SkltTw wQ1vqEGjmrVsFU6bOB2bR3 V9qNHeVBOujaFui6sxYDeo dmUgYmVlbiByZXZpZXdlZC Gtb4FcAIkxBRL5VZqopoPh bmNsdWRpbmcgSCZFLCBTcG RljCUyIYX5LVwekgEmyaAq AS7odE8lsVbfkM3rpSIooA K4zyzwOQDgBEXkpQgyXBMr VE0hqNalaB3wYkItTcStXU opAX6iSPKeH3lepBCnOAGc ULZzS7zmLrDguX7jiLsqGB xjZjJcZnMyMFxwYXJccGFy XHBsYWluXGYxXGZzMjBcbG FuZzEwMzNcaGljaFxmMVxk HiXgKZPnJSgmS4ooDeQyP7 RnHMCqKbExmAZqG9omZPjv ZFG2TMKhKJ3hzUBjLP71rG Ode6hcCJinhNsgwn0kU91f uKHjGIjlxAyqVAYrj00bw8 NeTWJtruXyvf5fSDZzdtP9 zK1yJQBubJgeABAanZLoSH Axt0ZkPXemeKLqrhWzTKov GUAwUACsiKIiwqL5noAywu OyjmVtBXHhxZolUIBdr3Nq SKTcBAfwy1Jaol0ajOSjMV ZxedLKlIcvpQOqdM1iD3Qv NVSePJAalv6fXKBgwZ0gZC opb4TexnmlGQOvVXDyMGBo aiQoyc8jCLXidZBIKR2LJY ciaTBeq6KafnEoM0sTILT5 NUQwNjYwMjgxKSBleGNlcH UxDBCmfu47EQXreR6dsSrm SHKlgV9oiO0rcVqouP6sZl VjEsMlZKhiCP0yOJWkH7cq hVWzSHRaKABmC2enOrVuuG 9jaFxmMVxjZjJcZnMyMFxw YXJ9fQ== Embedded Images (test code = [id number]) [facility] [id number] 20:37:21* Test Item Value Reference Range Interpretation Comme nts Case Report (test code = [id number]) Surgical Pathology ?Case: [id number] ? Authorizing Provider: ?Timbo Childs MD ?Collected: ? 09/10/2023 1053 ?Ordering Location: ? ? GI Endoscopy OR Department Received: ?09/10/2023 1356 ?Pathologist: ? Gagan Allen MD PhD ?Specimens: ? A) - LARGE INTESTINE, CECUM, polypectomy cold snare/ eval for adenoma ? B) - ILEUM, terminal ileum forcep bx's/ eval for IBD ? C) - COLON, right colon forcep bx's/ eval for IBD ? D) - LARGE INTESTINE, TRANSVERSE COLON, polypectomy cold snare x 3/ eval for adenoma ? E) - COLON, left colon forcep bx's/ eval for IBD ? F) - RECTUM, rectal forcep bx's/ eval for IBD ? Final Diagnosis (test code = [id number]) e6fjtHUrHZXgk7yuWEXruG FuZzEwMzNcZnRuYmpcdWMx JWhistBkOKblcXckXTK4SW LrVZ3fdIcvxCd7wMfeIBZl wfH3iACvGNmnn7ovEYK1m3 aykqdzLCBdMEwyHq3tvUHv dLgcFyFcJBOgZTy2jE16DG PzyK2kfBQvIEa2QPZhrJBk hnFgVzYoVUZvyQLvbYD2UQ SqXT1wsxizJKgmMFycQOOh tbA0ERIdwOGiD0ZuUTOuKG 5wvpjzPYK9WAvyQJMaWNL8 CkHsCURhv9Bvvwb2OeKpsA FyZFxwbGFpblxmczIwXHBh xxOFZoPLK0zMLcxbR7FHOE 3cHWEGFXHmM95SLfVnRF0F AKAOP9GMGNi6LBCqknJaOA EmLT4iOIEJRUdFBwkHSG5W ScMTDWRHC10GUPTpeaauGO XgFy6qN53EEHrdIY2XRGZE EM8STJKUJYOUFQ2HAZLEBD VVTSwgQklPUFNZOlxwYXIg JKPkWGTiQJkAAOKNSN2FF3 2EVVUEFCEAHY2BDJSXQRoK ZG9WTYWzJ2dYUtxIV9irJT BsUGBfLUJgXZ7SHQFOVFED ObHCWQ4GCMcQABRELYLQER rZLTQQXTSohutbWRVwYl3b W22TI00eRMVIQ2bXDSUFYI 6SH2v5QWCcjbRcLPEvCA0b I96AP31APwSWTQVPO9MnX1 bNKYRKLzULGZESO6pTD4fH CWFFTA9IZCAmlZQsWEGuYY AgLSBOTyBGRUFUVVJFUyBP RiBJQkQgSURFTlRJRklFRF nkAPSkeCTbWJLeIJWCCB6E CJAFWvFCV3SPQzBUHAEGI9 xEIFNOQVJFIFBPTFlQRUNU W44TUDtgCzktPIOyLMVzDE ZmZG2FFVCLPCxOWDJVAJoO TC5KHrUGCuNQYEWGWXKYDR LDWE8BOOSGRQTxqxqdIWOd IQ8xB63NN34mZTfRRaRyWN TUP5MIAUbesARaSDAlAZPq NCBAW8aIYywUAE9DG48PQJ ZMGFZRZQ1NBJRJCSkLCO2B WBOoM1tERxzBI2owRXBaSF OsFYEuET8CRTCJDPSDTaYZ AK9ISUpQSPQNGCTXILwIKG GQYNZilftaIBTxHr2aIqES MRGVJIROTN5HN2f9GBIthx UgEMLlFB9xFvIRVMBCMC9H I74OCYWZWJKTLS0VLRAWZZ jUTD8UKKYtG2lKLzbAE4ju UTNkLQPfSAOxSW6FNZZWUH FSQwZLNO8TWNrQTXSJIOJR VElGSUVEXHBhclxwYXIgR2 zzYpLkvS4oSjVddS6rUA7L CWIbjxnaVEB4w9axqFQsQR FkoVTgZxGtBNVeZSAsy6gg ZGVmbGFuZzEwMzNcZnRuYm xnyKMqHWWrLbTup7jwh320 pJNku2roZMNtHyE9kRDsFG KxwEshsmx6wGxvOlPiZJKd m3klzpLtUlPsQAImIUYlGS IkzTNhF862EUNvPNnya0lz y3GiZNNhuKBvp9Y4QHZVNK nkXdLqU873x8tdr5wbwmSn cTA8NYOkLCM6FXzpvrEjsx V0LZjejHYfQsC6PRqyurAg JJwnjeXsohPsElz4LJJjV4 28IXJ1lSznu8stZFP1PBMs HPPnRixcTv9sySDiV136XJ FqKMXDVKAoaEs3XPMpgnFm bnYkxEXFi399X557k7rdPN OwspPucRiZdsyhe3hjN435 XHBhcGVydzEyMjQwXHBhcG DsuAS0BRVqUW2zpgqvSVxy TBgxZEHlcbV3ENVqnMCiG7 PzOHFfXP4bmlqnITH4BSsm EHSyMVE3PhHtTMUys5Tuzj t9IhJblg9doa40FCF0a0Ud oOspYET0TQK8ViDlTy5ssG VfVMRvFH2pRiRnmVShOWHb rr33aCdiCTvlvcKbxZ8vHf KmONFmyAUtSSIaZL5fdAAj NUMzwR9hjuraCZJrEgHrjv laZDQcqQazcjXjYz7rqLyd LGO9AUefW0lmcE2sCjO8NN guW7yvpI7aVCo8ONcomOF6 CYKclR4fPG3unxupp4adRW vlGZkrHIJzaoG7bxB5XKAr oRFsR4XqqH3yNWGuJP3dvm vwv3tlNOR6DRcnQVOpZEF1 IeSpKXNgm4Pzcdg6MpQyv6 IrmMTsLTyyR18rd146EICj qmPgA9vjnLLhzgnfaCDxni muTZfhyhI3HBGfMJGaKFze XGYxXGZzMjBcbGFuZzEwMz NcaGljaFxmMVxkYmNoXGYx NReuN8zqNdMcC6MiTAMvPw AudROkMMamqZN9YLWxEZEe k72hmHo6USJbhynkf6ZxAZ YnuBQbhLSxcL0hbeOzm3pn JLRqWMKbPBGjF2ZxZVV5tU AbRGThnNJekCO4LG1bkiOl ZA6mQTAmRjidlgNtfFRpxr TuVCLiNGawk0hzAX4tCWPm xBenwN0maMU8LXRxk7eumW XqrBGwx7huj7YpwoQkUSgf EQNtWKamIPUfSAGmDK4nDJ ZetKMzqwSvx0P6DyducMGc lfneZekfcsW2JZtpngfiAQ IqYMjvK8doGpInHJVlxRpm Lzycn7DyUFObFCRaIfgsbW FyfX0= Clinical Information (test code = 7099752391) Diarrhea, unspecified type [R19.7]Lower abdominal pain [R10.30]#1 Eval for adenoma#2 Eval for IBD#3 Eval for IBD#4 Eval for adenoma#5 Eval for IBD#6 Eval for IBD Gross Description (test code = [id number]) w9vjiRAzXVObxIARATK8JC BqGR9ieEfddGw2xIakMFCo axC3iEPwOKxof1lbULR5p0 ormfODTykxIAGcNB4vYBql YJWrEF9yJqOtQDElReBlGG BhcGVydzEyMjQwXHBhcGVy gHB8EIWsAF3fgppuGVnqWL lmRLFmxvL9SSVwcOGqI8Ks ZYVmYH1glonrXEV5RBVKQz tyMa5anEKziIstDiYxAmRr BPDwVGTxBULgu3huhaHUgr yphHc8vL0VWRTmX3GwUW5D b0rgFWDbsTYgHYQ7VSxmf2 twKPwdWLD1PWMxNDTuZSJm YH6KXvVrWUOmNBv0YNI0Am W6FBu7ALRLNLWrPUD1AYka ZHJ3PAe6PHZnOS0vEWwzxT MlHYonRocoFJevN581ZFal ECFpX3WsZ4UlTRloIaBwFP pgQHMhWPFaUKttHQFrD3YM BLBgWOH0JtSyHXTxUQa7XR s4AN8BSgSvNBEtRiT6Zke5 MYQoVKw7CUcbGD0PMWBvGX o2RDV4NkTjCAU4JiThQUi5 IDIgXFxzcyAzIFxcZmwgXF rcQ98xaEGcSSXOIeahnHIy blxmczIwIFNQRUNJTUVOIE EkhVSrZ1vmXsXkKysaOXMg DQpccGFyZCANClxwbGFpbl xsdHJjaFxmczIyXGVwaWNO UZP9JU5jCALOBhakpSNoFR Aku8NdNIajrQboUUEiReJq SBxMiRWuaB9zjgAFOAriWZ WxD5WbuoCvUDelOJNiaj7h aElkZDuxOmVuFRQkc0v1kV C3mRMyuWL1mIZasHnmYI7x oFSrLYAJCU81qGUctwswBj FoH3NuWRVocEsdQQN6t779 JJRebPBjs68pdtEyCOBdgD Dyi8XkSWSaub2hNRHaPB6j DIJxaxPdw6TbQE3gZDCny6 adX3veEHpaxgDklEpxteCp aWVjZSBvZiBwYWxlLXRhbi Uej3Z6GOKqz2Y5YVCxCJ41 UBtoGE55SNbpMB7cWHTtQT P3yCmhrURclgPkbGn4WHXe WFL2vZNsmVexSSBvLjdqvH N7FNToKhSbzyBhw7EolTp2 yZSrTPxjPINtbT5ffC7uBM WuUPwbJCDqJ10up0PSp6Jv o5rpdSjjk0YijTZcVT8ysP JbWV6Sh8qcPRWzvKKxUEG7 ETvom4cyQGchEDP6IOPqQx KnWNMtLM2YJkTgHVKmDIp5 EFL4XoN4PZn4ASMLZfVxFw DyPwZuJeu0NtdpLGt9MLr4 DPeTRzBzKMO4GDZnKYfzQZ C2NCK7JHqqcZEuFPgfg3Ef DmReNPCtIXccdsN8CTPptl Fvh5IqFLUfOSLkU8nuVoMc NSANClxmczIwIFNQRUNJTU VOIEJcZnMyMlxwYXIgDQpc cGFyZCANClxwbGFpblxsdH JjaFxmczIyXGVwaWNOZXN0 RH4aIRBQHtewwZNfEEBvm6 FsHEjlfKkhGFDtMiAmh4Us MFxlcGljWHNhMzAgDQpTcG VosT6rftUASSltNDBkN2Xk hpAoSYunHKLrtf3eaYbgFP nhWlOrUFBiw7b1cPY8mCHr zAP4nXRwwGowSI9fmZAkOZ OWUE32pBWnhocpFjZzhe9x bmFsIGlsZXVtIGZvcmNlcH TnClkkiKR0M2R8GIptAu6v PVcTHIAcSV8cVUTxutDbr1 DaKX0bAFGijKqhG5IcDG2d IHBpbmstdGFuIHNvZnQgdG hjc9QsMXxwKxOctUAkHrJz wNNrDjByU16hsK5sOYgtct DaJNVjOQL3eBufqWCoxcMi rWk0ZSPaAEB2oUDgsFqgUC CjFzpriEL8OVDrQsQzieKj l8NebPc6cXIgQWeeONSngG 6xxY4dThReHEvbTGJxL72p s9IXc8Onu4xwvCxyu7TavL YuNY8bmGGzSL1Yj4dxVQHa xHPdBTQ6GKayr8ipPIodDC X1GPCmJtKkQLWcSS2FJuWy HYOiHCq8MLQ2DiZ5DFd1FA BNLgKnPwKdNxUmEin0GYAs CEc1IKy1RVcRMvBwUNT9JR IkXUfxUJV2HXJ3GEvipACk QDgck8BjAaPiOIAcVPdmyx W1QJPftmHvi8YmOFAcZCId R0viJgJtCILGWobbibXfJM NQRUNJTUVOIENcZnMyMlxw YXIgDQpccGFyZCANClxwbG FpblxsdHJjaFxmczIyXGVw eDEOXWE9LG1zMLVAUvxohV KyNYGro0ElVKehaMzfPPHb EaHqo7UsURuinXgaVTOiZl ReVUzZgTKikB0ydlHZLRfe MZNuB4BksxGoEPihMZArsq 4btGidBHmuLcPyRAYew7h6 kPR1bZOghJD8uTXdpBzgUQ 0wdGUmNJFVEJ06tGMqshis OuMyJ8f1LRAnsL4lMLNlou AlaXIcRcgenJD0L1X2CVls Oz7iLZhTCTDqZO6gIQDjxc Ozw5SuLK5bSO86jLIhwDwu IHBpZWNlcyBvZiBwYWxlLX JijvQqg5R6KMSto6E7HFVm FK25ZPseIS3zKCnrXX3sMR OpPSpoKSPcC0RrJ9G4KGjh j4ruQ7mqzRMbCdgxhHGqUQ DkuAnuv0XkmQOrQQMns4Xp vXFtDZeoNN0yDIT6Ao7vmQ UyGVGprsQ3k4VjPBvnOSDz Ow7BMIJoxVYYPTO2MA4lHR riQVGlI9OpH6FdrpB2SYZm ejKWUsxvOwstuHmac0NknB BcXHNnIFxcaWQgNTEwMDIg BZjeEeXACgBxNnXeCeN7Kq W7WDHeNBv8EVcbO5HHCOWo ITZ2EqA8NBH3XtR2NRu4FS KSYf9oGkVwHnB6ZrywKEX4 NDUzNCBcXHQgMiBcXHNzID JjSZskpTNgSP6fuWsqMYZg TOShUJE1UYDpwILZc2GfIS FfJOgyElQoTIYEUYFQIS5X AmTVDDArHePnhPIlUF0MRG MjnxHbZJwhwIqpzM0xbXAy E5vxZhMhKbhqcHseRpIzbC RvYzEgDQpcbHRycGFyXHNi AlIlJRHnY6amIjPiSLRdAc HbKTRhT9dyEBIdUW8JL6El B5lrHF0dBDApedPmZYRahE ZoCFAcnpZlj5UeVPuvssRc YWJlbGVkIHdpdGggdGhlIH HclXnnlhHfolWnPJ9wHFID DMMuhN4iBCEfZJL7mjBcx4 IzcnXjGFKviU2zBCZnlDmv TCV8r870RMEznDVsm21jku JphEDtS9E0QOyxTg1lRCFi KL5bzVQwELScGSAyk94soC J4qoOmScEmgPr6jWUtDKVf hYMlEHLwz4VzkBigdr13YV 1ld23qvMK5mYJcrQYoIPNm wTRqWszwxDQnVaYrX69ucQ 2lUAexoeWmESBvRVX3xPcw mSFvyrYijHd7MGNsAFI7mD WmyMeqJBDeKsdijZM8KJLf FhEwsjZmf1YfqAz5bQNtAD hsIZVwaG5wnH2xPQYeQKdy LFNqS82zf7JMa3Gel0xruA lii6JgfXXeGB6mwHEcSW2A b4zbRAFvvSAzTQQ5KXqrz4 ieXEynODU7HIDnKcAtZJTd LR8VTvKyJRXzZSk2VKE8Vq K7DLz3YFNQHpUmHtVoIpHq ApqrRdQmADv0PNm0MVmFBf WiKQQ0KGN3MAY6GGW9NZA3 GXbhuLVkUGqgz0IuHeCgWT MgTRwxfaM5HFEsksZam9Ng YWBzTSIcD5zwQiMxLFDLXg xmczIwIFNQRUNJTUVOIEVc ZnMyMlxwYXIgDQpccGFyZC ANClxwbGFpblxsdHJjaFxm xaWcTERqeLXGKEQ9KZ1lDN BKNzxmpWBjSRIec1QzUFgr xOglEROaEfXzk1KgSOuzlF glIYOqEbBlLXqLuECqnC2b dhASBVzsWFEoD5EaqkQqYK lfGVLkxn3kcWcoOZnfIbHv QAIgo4a8zYB8lPPwdZS1mG BgjNhaMW0shISiFEEYDN10 aPUagnbvIhcsPuAdZ19uv4 3jYy4eC5UbnwSveZ1sc5da QJYcdWXys2VjJMXECuMcqc VtY26ro8lgcESrt7OiElKd eCLmJGBni3SajZTxWE73VA 7ym56xsJH0yRSpbPYcQAMj IdR0IOMmQeJ5XCRoWGLimG WmlsOkD9uwOCnjaCSbPBfs aWNoIGlzIGZpbHRlcmVkIH Rqwm04F5ulLEOagX0pz6zq BkRaOQEhJFUdeQFwzRA8JD QolI8nwD16zlRwqdQVMP3P OwhkiGmrDkCeeNRgIlQ8MQ ThkJKvSUM1HF2ynWxoSKLb AGj7OOljEXZvV2RjV1SjPJ xzZyBcXGlkIDUxMDAyIFxc OYJuJ5IWQNOzHHD3MrAyKN JfECl0KEf3VL6XSjNyUHAk BvC2IQGgNUSbEIp7BGeiEM 4MNKSvRPt8HEInXQRsFQV7 UmNlBIe8VQQjFOqkedUrKN yjBfmnAQtxG57iwAFwONmn NeWzGFbfiFffVEDdDXX9NB 7HZCHyAlNyL8KLO1aUCC8i RlxmczIyXHBhciANClxwYX EoNW2DIWVwCKeaNQz4jkLy MLClHrAsPFApA47kk2WBz7 KmBJ4MRMt3oyQvheppOzBl MBUhxUZZt9YnPNNEWbTgUK NpbWVuIEYgaXMgcmVjZWl2 ZVIchI9hEq7vkGTqqW0uyR PvAOqxZSQ1tWXlDNGgJESi EGMwNP18M7WrvfHqQMjuJG ggbnVtYmVyLCAicmVjdGFs QCZmskNlcLQaQtmxdIL2R4 W5REnkDm4hBPeHCPLhFN3n ISJmkfZpp3FxBU8aGBJxeA goG5DpSZ9rPYVciBNopRWg VJJnDqYwqIsjl8UcPEiaRM nzVO3yLDhnBT3iFQCbZBoq DKXzR3PzF0S8TEwhy8fmP5 ggaXMgZmlsdGVyZWQgdGhy v8LuuQNjLSKbl4EguXVeHE xvRN8yGAJ1Jk2buNJoUOIk uzK8e5WhGLjkUFKsQahuPI IgDQpccGFyZFxsdHJwYXIg UMgveDMfRX6IHUTgDaDcBL RuS4eiNOIkWN3NIsKxdjVl p2JeLTSluHUfPJVNLKQpQF 6TLXthYBBdMCGGJJfhxY7Q NVReiQDODMK5VB0cCOazBS LaU9RyE0RlyqJ6d6ehtWke n9RsvUHzXH4suUMaXK6SDI BhcmQgDQp9 Disclaimer (test code = [id number]) e9wzhABdGHMpr6uaCCKxoP FuZzEwMzNcZnRuYmpcdWMx OQraqjJaNJgzk0VwM8RvGx AwMFxhbnNpXGRlZmxhbmcx YYHaSXB9zwPoSDOwWPpaCL DrQGllHa0nfCXzyLroKiZf CBUmn9twryIJNHlxTeFvX1 91UDXdMQook7ges6UwRGHs aWMte8V1RQKNwyfqsNn4uS suY88kv4F2GtnmV5lvJYDc FGWoI2UySS4sDXVrJyp5ML A5YGJ5WJPnRCRgT9XkAA6q KYUxnIVmTIw5e8klnJfdCA XcCPZ3x4wqRDvqmvRqLC7x ly9hnCq0v8gaheVkKOEmXZ JvzFXDDGEkY7EykShlAy5l hKg9pPvmShksKRI2Hxp0PC 1clv18bkc4bQtxGMJwzojd QqD8OOdfCSAesihjLSj7FL ixFPQqsDE3GLMohQCaA0Bm VWShKT0tdnw5JFZ0NGclJG SpMqC2SGXquBIyMBQiaJil BQnrs959RHY6SpDrVX2xL8 Etp7N8nD7wkGYyNNBexXUh OoGzKOAkwx8afWBiCKszk0 FrAHH0frJ6qWCagPBaJQPp GO67Ylywn3OnYupow9VqA1 3plRL3EOegs4vjUW4vCkL7 dqJvKLtzq8mzzR6bOzJ5JQ phSK2rYN1yEPTpbT2vlivx XHBnYnJkcmhlYWRccGdicm YiKs2ubEfaZEU9KHvaW5ij tB0tUeM6NYebS7xhfS6oGY o4QTehnOH6TCKpqN5fZI5c dzbcq7pwXHucYWcyDERedx K7ndJ9JJZgtMUqF9FsxA6k OWAwVH5hvnxda2gbKIT9IY ugENGdQOK0LvNqNCHer2Ot hor6QnPqr4IyeEWcWFlwU5 2kz428WARhehIkN4cnnHPu wybgeXZcwrbnWXujgxB1KV OylhTtk1TxYVRiPII5CGza SJfrsGDiMQIpzUeqz4ncC9 RscGFyXHBsYWluXGYxXGZz MjBcbGFuZzEwMzNcaGljaF atECyyXtDmDNXuYSqtC5bh AeOjI4MlEMWxPlBkbIYxO1 ggVGhpcyByZXBvcnQgbWF5 AWbcR5d3WZMmziZoiBx1xi BjZfVvBDCqTKM2BJypuJNb BGCaj0ApxhsjwCNmJt9sbO JaOQLboQ3oEVXpBTAwTCbz BP3reXs1XNRVjOFpwKHgTh WQAEFlKB23rfFsGUZKysyu e9A1ZDikUFQkj6ZfvGBvY2 ekm3QlXALij72xVF1bz4S6 k8quRSU4RE7jh4EqVZArrZ KhjOVfPCSmj0Jojjnok6Fj ZBMiqjOps4TaGJWcszXtxO OvLRFkxqDlsd3xgpPoZVBx ZQEaH9KednbbnJhepeAqXY Aisi7sjdKvIBV3FTYCRKGt VDNdw7MtyR2omIHUSGY5fV Iupa8qrhCClIZcZBKmzc11 NTBgTK4qX1ynGCOhEPSucz HprJLwy8SoAXYncSU0aHNc KT4MScZFs21bIWRfYEUNgi CyDKGlaJvkfUA6uqK6zA3i IChGREEpLlx+IFRoZSBGRE DxJM5ajzUov6YbggJshVpv ASFtjHVgz6YfuIObp3HqkH ymb4NlqWXwwPYfSB0rFLFq clxwYXIgVVRNQiBMYWJvcm P4w4WiXNZqGJSeZLV3pVei mzr4SGDjjU0hCXZeW2ffrx gpUUxsOAJzp8HpeT0jmNAJ qADtk2OgeOSyfAQVkILfXA 7dsiFrQKyJZFzJQDG3fqPl VKOfg6VzMUnwB4dlZ42fqI iguQw4qMO7XUS7hG9lTui+ IFxwYXJccGFyIEFwcHJvcH ZzMSMupRxfpsWeQ9WwnpLz eP4jaYEzjrDpAM9yWI3kX1 T1dQZaFKEuhtNpz9bmGBda dmUgYmVlbiByZXZpZXdlZC Kys1YfSXhhZIW7BJjbwpNv bmNsdWRpbmcgSCZFLCBTcG UrePVvFLZ1WKabyiKlloRj EN9kbU2heAgtnC9yaTNpsM S8rfgvAYMgUUWicBcvKXYy VJ1ptXbgrY2uYwOyZrAvND quDF6bSTRuZ1bvwVEzWDJq JYSsE0tsEkCtxB0vlJdxWR xjZjJcZnMyMFxwYXJccGFy XHBsYWluXGYxXGZzMjBcbG FuZzEwMzNcaGljaFxmMVxk IdFeKGQvLUreU9pbJqHhE8 WeYHHzKuLeyPQwV7ioCYkm ETX7LRTnTW0teFYvCI06gB Lwa4klNMkktIssvg2sT97z eBDrABqshEzlONLsk65js3 YtIBOligCabq6oLTNldsM7 dV1jWGPlsXocNEMzfQSdZW Qpy8ZyTIgizZZaegPiGHdq OLItEBLfsBJhtoD3mkEvfj LmtxIbXURccYeuJGYez1Nf CWNaXZfsq0Pdph5bbHOqGZ JrheLXqPzxhXXguJ5bU5Hl JFIrENSlsd6yJXFsmC0iNV wlx7EldutbZHJiCTVcCVDj hcIayi5oCTEuwBUMRR5XAF yfyIFnn6DcwaFaZ7dFBVB9 NUQwNjYwMjgxKSBleGNlcH PdSSZogp07HQCgyY6upEet WKAoeA0xiD9nfWmkaX5uKn BsMuJsNKslEE2rZXMxQ1pv aPDeFNHrVPWbZ2jjTzNdpS 9jaFxmMVxjZjJcZnMyMFxw YXJ9fQ== Embedded Images (test code = [id number]) [facility] [id number] 20:37:21* Test Item Value Reference Range Interpretation Comme [facility] Case Report (test code = [id number]) Surgical Pathology ?Case: [id number] ? Authorizing Provider: ?Timbo Childs MD ?Collected: ? 09/10/2023 1053 ?Ordering Location: ? ? GI Endoscopy OR Department Received: ?09/10/2023 1356 ?Pathologist: ? Gagan Allen MD PhD ?Specimens: ? A) - LARGE INTESTINE, CECUM, polypectomy cold snare/ eval for adenoma ? B) - ILEUM, terminal ileum forcep bx's/ eval for IBD ? C) - COLON, right colon forcep bx's/ eval for IBD ? D) - LARGE INTESTINE, TRANSVERSE COLON, polypectomy cold snare x 3/ eval for adenoma ? E) - COLON, left colon forcep bx's/ eval for IBD ? F) - RECTUM, rectal forcep bx's/ eval for IBD ? Final Diagnosis (test code = [id number]) [id number] FuZzEwMzNcZnRuYmpcdWMx OElvyzKgUPwlhMaoGNH1ZT YxOG0eyKwkcFx5aHneNLVk vwB0yLNfTZmoo2hlLJS7r3 uxhfoqZFDaVKdaYf8scWHw oJoaCdKyEQEmLSr7oR16FP MhdO4hvXZlZLr0FYOguQHj aeLdDcRdSUAajWWswSF7UD NcDF7whtexYHboDCanXBWw gmE6FGVteAOpQ4KqVKPbSY 3pgsluSLY4PIahBZVjUKP8 GgWsBQEuu6Apujc4CbHmuP FyZFxwbGFpblxmczIwXHBh fnUZQfKPA3eQKreeD9INOD 7fVPYVEFBtH43PPpHdXB0E CXLNR7NGSPd7GGApdbGgRJ GtAE8lFVUCTOrPGqdSBE7U GhMBYAUTQ69DPLPoaistRK NdIx3pW10PAHbyGH1MNLKO OM5CRSCDBWLSBI9AZXRPDC VVTSwgQklPUFNZOlxwYXIg PXDuZYOwZLdNHCXMUE6GH6 1LHQLKDVFWGD7UMYRDNCuN ED4JOLJlZ5eIRzuJK3soWA HaGSPaIZKmDI5FOSDNLGLV ObUKCY5RHLgXUPRELWUETN eKWWUDTJCpukapYCJyPe1z O95KZ35dWPIMU2pQEGCMQB 1AR5p3PRPfzqRfAKPqWS0m J97PZ95XQjQNQNOAG5GgB1 aMRNZGLxECRDQOJ6oZL0xX WZTPQU1RLEPuoCUeVISfWJ AgLSBOTyBGRUFUVVJFUyBP RiBJQkQgSURFTlRJRklFRF jjYKOvcXXuDYGpGXHLML7W UWPFCnYNH0STSsSBGBQJP2 xEIFNOQVJFIFBPTFlQRUNU R87ASLpdTsbfZMWhOCJgSN DiIK8OMKATKXdYYQWTXDuF UI3RHuYKJtWDIDREJJUTHI NISE0EYJEOVRJkxpzwERWl DB2yD60PR63zNDhYSuFkFO WCG7AZFHyyvHUyZIVeGMWw YHLER2rXHqcJQU4LG94KLM JBHIZACF5BKYVOTOjEXW7I BZToY6vXCjaNR4obFMSjOQ HcRYShXG2XSNFEWLQYLlBQ SI7ZEPdZMWYXGCKSNDmXAS PKXWKicgryOEHxTn1hLxKR RRMOLPYFTF5OI9r1TEFtfw HoBFFhUD7iKqLEXAKJIX0R U72QJQUTBRTEUV9HIBNOKO xQSB2WBFYyP2eYGlbKK5xn VNYfVEAmOHGnTM3VXMEKPJ MDDuFHVD6ACJfHLREHIBJB VElGSUVEXHBhclxwYXIgR2 siJaHjqL9qNeBxiV8aGL8S NJDiumcqCOA3w0ubfRJdWM CnpHCfAgOuCRNbRFZoj2bk ZGVmbGFuZzEwMzNcZnRuYm oenMYyGCKwEkJfb5opv468 rFVja2xuISTzUqR8kLPvJV SroOdfcng6wDahFgZmQHCh r8obgtWeVwEjQYKbPHOuGJ TgxPVgY810WTBgGKxsn7oj b7PfSSMxeJNui7S8HSCZPB gyJuPhI136x4ukn6jsgoZc qNX2DYPnFUM4XSxcjpLjgx N8TBfolLDiQpJ9PZpwjnHj RSzlmeXdcvGiZfn5XKSuE7 94MOM0yEfzk1qhLIU6ROTf YQWgXaifDe0ulWNoK507OK YsVGHVXSKhrKi7BUWnugSw jtIhkHUIk034V693x6atJZ AzhrZjnRqAcmdnu8wjR936 XHBhcGVydzEyMjQwXHBhcG DviYY9HQWhEI6gfkjxABqy LOozHEHkfkO8BXRlcRCfE2 HqRVXjXP0suvoxEJC3LIkt ISUcIJA9McVeDRCii8Jwuf q3MgVhgx5jsv26QRD6o5Is yYnsMKZ3QFM0SnTtWr9pmA PjKTTjRJ5jImFvnQGnXLFs hn60aNbkVUddxsUutL5cOw CuWCDrpVSkZBEbIQ0ssDOf SEMlhT5ulzecAWSpXtDjrw qcJOFokAwoppYnSi4piBav BWY4LYlzC7ciaZ7hGtS8TU vbJ2eesO3hPWj0XImkrPE8 JNCbsG0tQU4gcivct3xnGK spRSjiEBBnphE8hpV9MRNq hKRrU4UjgO4yPIQfCL9ygu nda6deHPU5WUjhEJHjZGD2 GgQhSZHfz4Fanxk2RlNly4 BbqTVkBXukT96ms250ZTPo lqVwL3qplHEtnubsxBWfae gxNVxhudC8FKFlGDXnXPjr XGYxXGZzMjBcbGFuZzEwMz NcaGljaFxmMVxkYmNoXGYx WUkjI0ukPaLzV9YdGLUiVr RpfMZsKDlruSP6HCPxZJXg h86jaIm9YDNohpfej8XvVE QbyLRrdQFzlH9iqjZam2tm RUReZTHyYSUoU9ZvMBE5mP IzZEHavENdiFD9RK2kosNi WL0tMVZbTiyifgTocPMmxe RvMGZpIIjgr1urDW3rGCOd gDfgxA7pkEI0CXDmt5oqeR UcmQXuz9zrg1NuitBlNZpl VTZyNAmgEFAsVWTaEB3qRG QqwAYgoaBes0L7KwzrmHQz jpjjLrzyecV1YTpkggygWG XcHCakX0pnChNnBTCvvRaf Mgiig2AvFRHwUCNnMrmaaG FyfX0= Clinical Information (test code = 4873229382) Diarrhea, unspecified type [R19.7]Lower abdominal pain [R10.30]#1 Eval for adenoma#2 Eval for IBD#3 Eval for IBD#4 Eval for adenoma#5 Eval for IBD#6 Eval for IBD Gross Description (test code = [id number]) z0xjlWPmBERarWHZFIO6XL LwPN9uaNarpQz5sRdvRXXt htM0jJZtPJcnx8irQQM5j3 ccxjHIPmbbHTNaSJ7uENcc QGFfQB7nTmLpAJZfHdDsOL BhcGVydzEyMjQwXHBhcGVy nLI0MNZsCP3yoyctTHdeKY sdHOVbtqQ5BGAffRUsF4Wv AAZrUP7sndzfQTV5YBQUQl cyXs3zkLVusNmmLnRzUgMl GCAeLQRvYZBpu0aliwERlq nvfVm1uU1IAKRkS9HqBO8W n2qeBSZjfUZaBXK1GMgiv0 bsYSeoYXN1PAGtOARtUQMc EH5JMaAyNSWdMZb8IFY3St J6BQi5KGZWEQVsZDX2EQxc PTX0JLu2JKFyWX1wATlupT FzEJlgTnuwWDdcI687EZkt EXJfV2NgM5WxBQwwScBoSD diVXFjCHFjAQoeFIWeI3LO ZZSzBGF6HeWqBVRyMCk5EK p2OW8DQfCgGEUjZnZ8Ltr4 FYXpWYq9RGydVZ4RBLJbKB a5GYJ0FdIjRDC5LdMiCMz9 IDIgXFxzcyAzIFxcZmwgXF dfR62snGXwCNHGHpfjqDQf blxmczIwIFNQRUNJTUVOIE GmfBTbE6mtUhMrGsouOPCd DQpccGFyZCANClxwbGFpbl xsdHJjaFxmczIyXGVwaWNO AZI5GE5qBEQOZjghdYKiQG Yjb6YxMSqmiHorLPVaIxLj RUzByHLppJ0mjjXPVRiyFG NpJ1ZznaIwJKmdAJNmzg4s hQfkHOseRxPrMPLhy8y1tE P1wXZpeGZ3jIUmxQipKT2e bFZgBIWJBB14bFHbknveCa HjV0OxAOQcnXsuDIH6p789 KQLneBHfk76wpbGbVEPbzK Nzm6GnQDWhdc1kASUpAO6z YQMjxiXlw5WkXK3sQWKei3 ayT2ozEUbvvnTwkOuaadTk aWVjZSBvZiBwYWxlLXRhbi Qsg6E8RRRqv5Q4MLLsJS74 HXkjPU57VJblDO9tXJNeJZ D6xLjsnYZrnjSpuNl2SZUj RPZ9pMPesAjbXNIoQwfrvB G0ODUoRcLazhKhl2UgyYj5 gZAmDLioEYHfoL9eaN5lRE NyMVcvPRHwD89ij1CPp7Uk n9clwEnto1UqbGBlTP7xxD EtLF2Ki4efNYYkxCRgCTV2 OWyrn2ugVFkaMNO4EDQrLp WyMXYwRM0KLfEvBZEvUQj7 WSL2ZrZ4SOq9EXCJCcQxHy ZbDiDsZpz9TwcjDEr9OGb9 SRnSHbQgKFQ5ZIIpAXtsTB L6JFN2ELullFPzNDnit5Co KrGfNCNsVSugnnY4ZECmwr Ofm1YnNZMvCXYqJ6ynUvMc NSANClxmczIwIFNQRUNJTU VOIEJcZnMyMlxwYXIgDQpc cGFyZCANClxwbGFpblxsdH JjaFxmczIyXGVwaWNOZXN0 VN3yZDOJKrgrnQJhHPVrm0 PoAUdpuAklXOGeGuToz6Ui MFxlcGljWHNhMzAgDQpTcG GchC3aakOAFMifELZaO1Gf ggOmZBohOEVtss9thQigVV ibMpMkCHTcb8j3uMY9aQNv iNH3cYWwqKchON7dnYJyKL XXAV34yAGzxgmoDfDbsf5g bmFsIGlsZXVtIGZvcmNlcH EcCeatlZC8B8M8DNuoLy6r TVkHWLGjHV8uHVEbeuTpy3 TbGO0gKAMnfBtaD7LdQJ0f IHBpbmstdGFuIHNvZnQgdG yqu1RtUHhtZnBvhRHbCnNi yJXoIbRnX76jaX9tAAppwt AjJRGoBSI1yXhbsCBnynCv oRc4RSQjHZE1eMXrnYfjKL PkRewdfXS8RTIyOiScrnBw q4QxeNp8eVDdDHiiRSXioY 0ofO9rXbOgCZtdRIHjH48t i4CLj3Omt5bkpDmcc7BxzJ YaIV9zkVXhZA1Ci3nuGRCr jQOrAFQ2ULexi9nsDGtpKB D1PTInNjLvTHMhPP8DNiHy HZNjVAx9UAX6PzH0KOb3HJ GYIyDsVfVbNsHbFfo7EJXh RJt5WHs2MQxAHxDzCTX1TC LkOKzuCHR8AUW3UMegkENm ZRomx0XiFyQlXYKaARlauw A3XIPzydYfh5KqEPQtYNJe G6yqLaFwYBYQVxysipVsCZ NQRUNJTUVOIENcZnMyMlxw YXIgDQpccGFyZCANClxwbG FpblxsdHJjaFxmczIyXGVw vVBXANY0TE8sMSDHJjbaxI NjYYJdo7RsSDjfiDuyYSVa KcRem7UmJLmegRamCZNtZs UlQZsCeLUfuY2kdaNVJJex SIMyB7ZjdgKjBRtbYOMscr 5xyTcrHUqpBqHsLYArd0h9 xNV0uKWudUM6eJPjmYsrGK 1jkGMhUGWVWM72tORupuhf XlWxO2v9OTOdbD8oWGEwbq IvaNAeVjpxfUV4E9Z3OWsw Gs3xXLpKNZBnNL6aGFOuuj Whs4AvWV5rQH34kWXzgOiq IHBpZWNlcyBvZiBwYWxlLX BnhmOtq0Q6IFIzd6U5UMYg NI00UEeaTC3vTGoeWS0cBW PsJMttXGCnI2KwN0V5GFmd c2utZ5eatPSgMfokdZOsGA ToyWeil0AruCPyIELkb1Bz aSVxRHyiCN4zHUH3Nl8rpM ZzITUiwmN2l0PsGOulBGKr Ry3TMYCfwXXMCTD3XV0nWQ bpHSAoF8VoQ2IdweP7XYMu dvYOWsrdOubdsDzpe1OqpP BcXHNnIFxcaWQgNTEwMDIg HNrdYjPRLeIlPmJtVjY5Af F5MAAkQFc8ULyxN7UANCKd AAI7AgJ6ARH8AzG0XKu8MX GOZj4bNkIlDwT7AhkqBUN1 NDUzNCBcXHQgMiBcXHNzID VbINubqNIkHP6frHsoNIJc JEZaJEV1MXFntJREt9YvMQ UtXMgaVvKqOXEGGHQBYP8V QyQKEMJgDzEhaWIsDR3TVP LjpvBrEAtjgGygzK1gxEMr R7slMvQwBuffrFhcHiOwsQ RvYzEgDQpcbHRycGFyXHNi GfJrSNAiF2ycBdFwGXOvRn DqTBOtZ9mjCWBkIT2ZX2Vo C8myZP7xGVMlabZuTOWiyD IrEWPwqqRft3MrCFgavjMi YWJlbGVkIHdpdGggdGhlIH ZbyDiiwoKmasSxXN7bTZFF QWLyfH6cHBQzEFM3qeZfl0 WtokNnRLMkiI8sTZStkDom IYX4h244HLYlcXDuk95xwq UdrHMgW5T6AFoqOg7iNDPx RD4nqFJyUZXcWUNeh94kpU Y0miBsIgQcuKw6nXKsAAQj gDLkAHCfv1DygGzxrc48KC 4ob05lzJK2fISepGOeTPVf zSUjSaukmXEoNyTlD93kyX 1zWJudmmRcUELbIIK4pHjj iBMzncRpuUo0GWQaZPF8nF ZdxZdsYQXkJexhjIW2NYWd SaUxjgZua1PxrSv5kJKxQK fxMVLrzV4wcE9tUXBtNVml KULuW01xi6NAj0Nlf1tqqQ jbt3NdeHIkCG3lfUTzXZ4I p3uaMFMkhGMaBFN6KHkpe6 bwRIsrEFQ6EQNbEbCnDLLo OE5OHcUiHHDpYZl5JQL3Wo U1HJa5VOFARoDbCxDdEeFf AfufAcAtNSf5NUk8ZZgNSe ZqZYD4YUH2DKB0EAO7RKE0 YKjmzYUoZGwmz6CiWyRbVI EuXJdfcvZ4FRLpifXui0Mx SYRoVBXyK9fcUjKlDOFLGm xmczIwIFNQRUNJTUVOIEVc ZnMyMlxwYXIgDQpccGFyZC ANClxwbGFpblxsdHJjaFxm voWmTFRqjGEKHFQ4RK2rLB NRVjhqwLUqAQVah9IkSVao kHtnVKDiTpUxj9ShOYzsoV evTMDpLsAqFTsClSQbbP6w ixQPXAuzXTKxV2QelsYzCU gbRDDcnq2oaLceTLzrBnMr GQKic1x2pQN6dIUslDU0wV AziZnsSJ7vkYOiFZQXDF11 oYKdhbueCgavKoSdW24hp5 3xQq5hB1XcmgJjdW6rh5bg BSVayGWhz4MhFWZICgUurq UzH84ww5zvhSTsd6JyLyQr fIRmOWEsy9KenHIoBM57SJ 2wf05czCS9gMEwhZDiLSMx ZkF0IAPoAhW0MJFyUZTxhZ LrsbYwG6ukVYfkyGSdSRaw aWNoIGlzIGZpbHRlcmVkIH Fdln51W7jiORWzaQ1dt1ra ZuDkUUGnVDNveZPcrPQ9RC VgxR0scP19dnFjhnGCIJ5K WsaezFpeSqKkgWMtXiT0DK VucMDfBVG2AD9beRwiVYSh JOg4ETzmGWVxU7FxY7ZnZX xzZyBcXGlkIDUxMDAyIFxc AEGpO8MELTFeYEA3IcUcUG NqSVx6VDl5EH0NFqDjWGIv FbS7VTMtGKJjTWg3WXhsRR 2RBEWuIOt9SYThVHTuLBP8 FwRqERq5JXRdFFkbspLqSR baRysgGBogG24wnNNbEKlh DfPhHYfjtUctVZXfNFG7FP 0IYNUbIqJzJ2OZV5wBDB3i RlxmczIyXHBhciANClxwYX TwLV8DJOAgDUweXLu7ggLi GXNjFsRdFTIwW41gi6JMh1 SgDV0XCRj6bwUluspcTkSc VTAyzFQWf0EnPCTCFhPhGM NpbWVuIEYgaXMgcmVjZWl2 DJFmeK9mLs0shQXgcY6nfJ YmIZxdOLE3rJRrHZMaEZBf EPHzXT36B1HqgpAwQGnlSX ggbnVtYmVyLCAicmVjdGFs WEPrndEpoVXfLhnivDX8D1 E8GHanFy2yQGgJKYJxEI8m KQWtxuDqt6WkEP5nTSSyaX sgP1JqNX4cDBMypLGklSEh TYAmVkVfvQxqt7RiIGcxZU yoND3rDIsgGF3eBVJnAFsz QHNpD9GjU7J3GFefh8djS2 ggaXMgZmlsdGVyZWQgdGhy h3QniAAqIGNdp4UqcRNjPA dqXV5uYHN9Mg8hhVTdSCFg qjZ7t1KnSYvfRQJwAlxpOD IgDQpccGFyZFxsdHJwYXIg CDjuePTtNN2UNLDwKvTdQM ZdE4jwEJEjIU2HLsUktaSm j9CiPYMugWEwYMRVPXPaCF 4DPNucWUInRNYWKTsokQ6G SYRpdXIYXTZ1RO0pPHgrFM XwK0LjE8DbqpG7c2pleGjr n4RrpANmUL7haETtMV4ZIB BhcmQgDQp9 Disclaimer (test code = [id number]) g3gzqYHqVFPhy1emCRQgkO FuZzEwMzNcZnRuYmpcdWMx HUpbwzBuSOcwn7DsK5LrAl AwMFxhbnNpXGRlZmxhbmcx USRcRVA0kaQpNTJjASbtCA OlTZbuOj5cwPSdvOmwGnXl PYWza6xvkdBPOYedJtEzL3 80CAKsOWkkw4ucn3TvDLHh uUIqb7O6UCFQfowcvCh3tO ywT60zk2O0XkeiO9ttEWSi FQBeV5JiBI3fQWCmLhz6DE P9ROD0OFJrHCWsB5CoZK5w YLZtnCXsCNz0s2ztvSkzQP BnMNJ0i7slJXzvbzUvWE0j vc3iqLm3i7etueCjCMBvOH PkcRWYRHYoA4ZthBpbSt5m cFt6gIpxHatpBPM2Wjd0FK 5zvw72scz3bZwlORKqesmw EgI4DTydDQUkcjonPCi2VE pkPIZosVK1WATbmVTkW3Af HIDjZQ0hjlc0BMO4IVeyAB IaRqI4VWKrfOPxMUZwpWgy FVphy129BAN1GvFtPI1jK8 Qdh5I0gE7kxLWnWVFctZUj ItTyUTRzyl5wrMQaOYyvq7 OiUIJ3kiF0mLVsuMMcMFZu VQ79Ptzom6ZlHqgyn6DyE5 0llGB6NYoqe3zrTP8gTmR7 qxScSEiff0afvU0vEuM4EN zuHU3wMT3iASPeoZ7udgaa XHBnYnJkcmhlYWRccGdicm BxMl8ebYegHTL4OInwL8dd lP1bAcZ8SMgdR9arxI8vOA s4UFfgiYA0OJOsyU8xCZ3s flule7beCVpzWXfoPZJsje M2akV7XFGmrCGdG8RzxR9r CAJrSZ7kignid6baFSG6OV iiRIXvIBM1MsTzHOAdf3Cf czh6BkTde4XiuFKgHQvdM7 6ni423JOKvyfEeU3urcECn cqpqwCIebpgaPMdcqaE0XV CgpdUdj9ZgVJHkHZC7MDud DQnfsQEzTARcoFcfv8zaN2 RscGFyXHBsYWluXGYxXGZz MjBcbGFuZzEwMzNcaGljaF wrJXdpAlJdZVGdPDzkS3nu TaPaD2MjYKNeXaOscGCnI4 ggVGhpcyByZXBvcnQgbWF5 BDfbE2t1WFIkttMegTf8cn ZoRvFwNJImKLO8KWbqhIIb WCTwi9TuqhtkiXVbJq7rlX LqQRPiuF7wEXVjNKOwZJxf DF5qqEh3ZNOChEMjgQNzDv PAJPWhYE86icPsICDLjhxz d4S5BJeaFQXey8WekMHbJ9 wuf9ZbCXIdc54pLH2ag1Y5 k0lsNRC8PK1hz8MfQQUtsY DdnYUyXFPsf7Scciqnn4Ac XYRdzmVfr4RwSKAchaVhoP WzZHWfgoEwxa3wkmDsBMOp QRExB3JnpuekgOgycrPjPW Expk7qncFmDTE9LLNJAUVn DOIuj3BkqR4xkUJBVPM8cB Ogax9jnpNDyDDbZBSrsa02 HHYzKS3qA1fzFPWxNLIczr JzsMHxh8FpJDRqjUT9hYTn JW6UFdNWt48rBGPbMTTAet AaLVGcjTpjxWN0sjN3gU8k IChGREEpLlx+IFRoZSBGRE QgVG2ensNdj6YmoiHkjDre XGCqnKFrd1NxiBFjz8SxkY jsq3CbhSErrHEdZG3jUJBl clxwYXIgVVRNQiBMYWJvcm J4f7PcHAAlEUQuPDE0wVwf kxm5VDUmeU6hIMPkZ0wudd iiNGffRGNon0LgkP4olMPU cMKts9JuzKUjvBXWwSRwCC 9tmnBcDKeIHXiZDQJ4iyMq LRUcy2WqYLjsK0uoM23ggR ipvHc9xXR4CWR4vC2aUsc+ IFxwYXJccGFyIEFwcHJvcH PcKTCklHicrxPtK5IrbiKz mL9gyDHmtzEqPY6yWM4aD8 R4zMQqDKPrklJhe1qfQMzt dmUgYmVlbiByZXZpZXdlZC Xqg3DiIYnnWJT6PDojslOz bmNsdWRpbmcgSCZFLCBTcG NyyZSnTTK6EStjywWppfAq LP9okB4wsVaoiC7llHFjhE R4mwnaZDSmXURlaHvhFUHh MZ9szPjqgN7rFvEsHoVfAO dsYP6bKNXaA7rthNWmGPGp WBMsK1xyJpEpeR2kkLiqRP xjZjJcZnMyMFxwYXJccGFy XHBsYWluXGYxXGZzMjBcbG FuZzEwMzNcaGljaFxmMVxk KnAiQQFaDCjsX0fwStTtV2 QiETCeUmDpfOVgN6iyCErm ZQL2PUNhYM2xjCJhRH97uY Jlz8ohXNuqqHflpk1hB50b tXSiCCyaaKtxLYOuk04qy9 BlYXKlczHawg0fMSUpnrM4 bR3kKMCsdOxaGGNpsXHvOP Qfl0DaHGajcXDootIwWZwr CGUzOENzhVCtzrL6abYprx HdpfDjRDZyeEnnNDNjg9Jq UJMrSLnsw2Dvwg1caARiIQ CkvvWWwTznzMKwmB9eL9Wq MNAoNOYzat9zNELrnZ3cQH twv2GucxyuLSClPNXfZKVu swNwbg3yHCGraYDZML5OJC ubaOWab8MwsyGgA3tDNCX5 NUQwNjYwMjgxKSBleGNlcH QqJOTzjo38BRZpiO5faRjc KKWqhT9ejA1dtRbjeN5iEu QsCpQyCWtcST6gWGCxA3ei fZAoXXKnJQKjI4zeSaSanC 9jaFxmMVxjZjJcZnMyMFxw YXJ9fQ== Embedded Images (test code = [id number]) [facility] [id number] 17:51:41Ordered by an unspecified provider.[facility] ENDOSCOPY PROCEDURE [id number] 17:51:41Ordered by an unspecified provider.[facility] DOC[facility]ATION 2023-09-11 17:51:41Ordered by an unspecified provider.[facility]/[id number] 14:48:54Ordered by an unspecified provider.[facility]/[id number] 14:48:54Ordered by an unspecified provider.[facility]/[id number] 14:48:54Ordered by an unspecified provider.[facility] WO [id number] 00:08:59EXAM: CT SHOULDER LEFT WO CONTRAST HISTORY: Shoulder trauma, instability or dislocation suspected, xray done Shoulder trauma, rotator cuff tear suspected, xray done COMPARISON: Radiographs performed the same day earlier FINDINGS: Multiplanar CT imaging of the left shoulder was performed. Metallic plate fixation hardware is partially profiled at the lowercervical spine. Alignment of the shoulder girdle articulations is anatomic. No lytic orblastic bony lesion is noted. No aggressive bony destructive change orperiosteal reaction is appreciated. Mild lateral acromial downsloping isseen. No fattyinfiltration of the rotator cuff musculature is seen. No fluid isnoted at the glenohumeral joint orthe subacromial/subdeltoid orsubcoracoid bursae. [facility] [facility] VW [id number] 21:16:32XR SHOULDER <2 VW LEFT Indication: hyperextension @ shoulder ? Pain Technique: Frontal image of the shoulder with a scapular Y view aresubmitted for interpretation. Comparison: ?None. RL: [id number] Ordering Clinician: MURALI CORADO Technical Quality: Adequate Findings:No fractures or dislocation. No focal soft tissue abnormalities.[facility] Only Celiac Screen [id number] 19:53:37* Test Item Value Reference Range Interpretation Comme nts Tissue Transglutaminase (tTG) Ab, IgA Interpretation (test code = 07107-3) Negative Negative Deamidated Gliadin Peptide (DGP) Ab, IgA Interpretation (test code = 79512-1) Negative Negative Tissue Transglutaminase (tTG) Ab, IgA (test code = 1752734723) <=7.0 Deamidated Gliadin Peptide (DGP) Ab, IgA (test code = 1222760741) 0.3 U/mL <=7.0 VIVIENNE (test code = VIVIENNE) < 7 U/mL ? Negative7 - 10 U/mL ?Equivocal> 10 U/mL ?Positive In case of equivocal results, we recommend to retest the patient after 8 -12 weeks. Lab Interpretation (test code = 03684-7) Normal [facility] Only Celiac Screen [id number] 19:53:37 * Test Item Value Reference Range Interpretation Comme nts Tissue Transglutaminase (tTG) Ab, IgA Interpretation (test code = 28203-1) Negative Negative Deamidated Gliadin Peptide (DGP) Ab, IgA Interpretation (test code = 35769-7) Negative Negative Tissue Transglutaminase (tTG) Ab, IgA (test code = 8083082985) <=7.0 Deamidated Gliadin Peptide (DGP) Ab, IgA (test code = 9463093140) 0.3 U/mL <=7.0 VIVIENNE (test code = VIVIENNE) < 7 U/mL ? Negative7 - 10 U/mL ?Equivocal> 10 U/mL ?Positive In case of equivocal results, we recommend to retest the patient after 8 -12 weeks. Lab Interpretation (test code = 01853-6) Normal [facility] Sensitivity [id number] 16:56:19* Test Item Value Reference Range Interpretation Comme nts HS CRP (test code = 0621442551) 0.84 mg/dL <=0.74 H Lab Interpretation (test cod e = 77030-5) Abnormal [facility] Sensitivity [id number] 16:56:19* Test Item Value Reference Range Interpretation Comme nts HS CRP (test code = 5033757884) 0.84 mg/dL <=0.74 H Lab Interpretation (test cod e = 51659-5) Abnormal [facility] Hvnwov4635-07-11 14:42:01* Test Item Value Reference Range Interpretation Comme nts Total IgA (test code = 9272068300) 95.7 U/mL 70-312 Lab Interpretation (test cod e = 01458-8) Normal [facility] Erzuvh8992-67-05 14:42:01* Test Item Value Reference Range Interpretation Comme nts Total IgA (test code = 2712544447) 95.7 U/mL 70-312 Lab Interpretation (test cod e = 90085-9) [facility] PEL[facility] W [id number] 00:05:43EXAMINATION: ?CT ABDOMEN AND PELVIS WITH CONTRAST 06/02/2023 5:59 PM Ordering physician: CLINICAL HISTORY: ?Right-sided abdominal and flank pain COMPARISON EXAM(S): ?CAT scan abdomen and pelvis dated 12/16/2022 Technique: Contiguous axial sections through the abdomen and pelvis were obtained fromthe l breezy bases to the ischial tuberosities following the uneventfuladministration of intravenous contrast. ?Coronal and sagittal reformattedsequences were also obtained. ?This utilized 96cc of [id number].?Oralcontrast was not administered.?CT scan done according to ALARA (As Low asReasonably Achievable)? Findings: The visualized lung patterson are clear. No pleural effusions. CT abdomen:Previous cholecystectomy. Previous appendectomy. Mild fatty infiltration of the liver. The liver measured the upper limitsof normal at 16.3 cm. The biliary tree, pancreas, spleen, kidneys, adrenal glands, ureters,ryann rointestinal tract, are radiographically unremarkable in appearance. ? No focal fluid collections or pathologic adenopathy. CT pelvis: ?Previous hysterectomy. The adnexa, bladder, and pelvicstructures are radiographically unremarkable in appearance. ? No focalfluid collections or pathologic adenopathy. The visualized bony skeleton demonstrates no acute radiographicabnormalities. Mild degenerativechanges of the lumbosacral junction,superimposed on a minimal levoscoliosis. Mild sclerotic degenerative changeat the sacroiliac joints. [facility] [id number] 23:56:31* Test Item Value Reference Range Interpretation Comme nts ESR (test code = 76738-4) 5 0-20 Lab Interpretation (test cod e = 53178-1) Normal [facility] Ngkf1454-72-89 23:56:31* Test Item Value Reference Range Interpretation Comme nts ESR (test code = 22042-1) 5 0-20 Lab Interpretation (test cod e = 60537-5) [facility] Vovc9570-50-31 23:56:31* Test Item Value Reference Range Interpretation Comme nts ESR (test code = 00723-2) 5 0-20 Lab Interpretation (test cod e = 28219-4) Normal [facility] with Qqti2995-61-22 23:12:18* Test Item Value Reference Range Interpretation Comme nts WBC (test code = 6690-2) 11.86 4.30-11.10 H RBC (test code = 789-8) 4.48 3.93-5.25 HGB (test code = 718-7) 13.7 g/dL 11.6-15.0 HCT (test code = 4544-3) 39.8 % 35.7-45.2 MCV (test code = 787-2) 88.8 fL 80.6-95.5 MCH (test code = 785-6) 30.6 pg 25.9-32.8 MCHC (test code = 786-4) 34.4 g/dL 31.6-35.1 RDW-SD (test code = 48356-1) 43.0 fL 39.0-49.9 RDW-CV (test code = 788-0) 13.2 % 12.0-15.5 PLT (test code = 777-3) 383 166-358 H MPV (test code = 90800-0) 12.2 fL 9.5-12.9 NRBC/100 WBC (test code = 4418364471) 0.0 0.0-10.0 NRBC x10^3 (test code = 2307717564) See_Comment [Automated messa ge] The system which generated this result transmitted reference range: 10*3/?L. The reference range was not used to interpret this result as normal/abnormal. GRAN MAT (NEUT) % (test code = 770-8) 56.9 % IMM GRAN % (test code = 0822980875) 0.80 % LYMPH % (test code = 736-9) 34.1 % MONO % (test code = 5905-5) 6.4 % EOS % (test code = 713-8) 1.5 % BASO % (test code = 706-2) 0.3 % GRAN MAT x10^3(ANC) (test code = 6917297229) 6.75 10*3/uL 1.88-7.09 IMM GRAN x10^3 (test code = 0641470908) 0.09 10*3/uL 0.00-0.06 H LYMPH x10^3 (test code = 731-0) 4.04 10*3/uL 1.32-3.29 H MONO x10^3 (test code = 742-7) 0.76 10*3/uL 0.33-0.92 EOS x10^3 (test code = 711-2) 0.18 10*3/uL 0.03-0.39 BASO x10^3 (test code = 704-7) 0.04 10*3/uL 0.01-0.07 REACT LYMPHS (test code = 1896994615) Rare Lab Interpretation (test code = 82570-1) Abnormal [facility] with Tavm8446-73-75 23:12:18* Test Item Value Reference Range Interpretation Comme nts WBC (test code = 6690-2) 11.86 4.30-11.10 H RBC (test code = 789-8) 4.48 3.93-5.25 HGB (test code = 718-7) 13.7 g/dL 11.6-15.0 HCT (test code = 4544-3) 39.8 % 35.7-45.2 MCV (test code = 787-2) 88.8 fL 80.6-95.5 MCH (test code = 785-6) 30.6 pg 25.9-32.8 MCHC (test code = 786-4) 34.4 g/dL 31.6-35.1 RDW-SD (test code = 38809-5) 43.0 fL 39.0-49.9 RDW-CV (test code = 788-0) 13.2 % 12.0-15.5 PLT (test code = 777-3) 383 166-358 H MPV (test code = 63277-2) 12.2 fL 9.5-12.9 NRBC/100 WBC (test code = 2717820253) 0.0 0.0-10.0 NRBC x10^3 (test code = 7840693589) See_Comment [Automated messa ge] The system which generated this result transmitted reference range: 10*3/?L. The reference range was not used to interpret this result as normal/abnormal. GRAN MAT (NEUT) % (test code = 770-8) 56.9 % IMM GRAN % (test code = 7481945700) 0.80 % LYMPH % (test code = 736-9) 34.1 % MONO % (test code = 5905-5) 6.4 % EOS % (test code = 713-8) 1.5 % BASO % (test code = 706-2) 0.3 % GRAN MAT x10^3(ANC) (test code = 4559814170) 6.75 10*3/uL 1.88-7.09 IMM GRAN x10^3 (test code = 2325613504) 0.09 10*3/uL 0.00-0.06 H LYMPH x10^3 (test code = 731-0) 4.04 10*3/uL 1.32-3.29 H MONO x10^3 (test code = 742-7) 0.76 10*3/uL 0.33-0.92 EOS x10^3 (test code = 711-2) 0.18 10*3/uL 0.03-0.39 BASO x10^3 (test code = 704-7) 0.04 10*3/uL 0.01-0.07 REACT LYMPHS (test code = 5961790332) Rare Lab Interpretation (test code = 37603-8) Abnormal [facility] with Jzec6490-07-01 23:12:18* Test Item Value Reference Range Interpretation Comme nts WBC (test code = 6690-2) 11.86 4.30-11.10 H RBC (test code = 789-8) 4.48 3.93-5.25 HGB (test code = 718-7) 13.7 g/dL 11.6-15.0 HCT (test code = 4544-3) 39.8 % 35.7-45.2 MCV (test code = 787-2) 88.8 fL 80.6-95.5 MCH (test code = 785-6) 30.6 pg 25.9-32.8 MCHC (test code = 786-4) 34.4 g/dL 31.6-35.1 RDW-SD (test code = 26810-8) 43.0 fL 39.0-49.9 RDW-CV (test code = 788-0) 13.2 % 12.0-15.5 PLT (test code = 777-3) 383 166-358 H MPV (test code = 75081-5) 12.2 fL 9.5-12.9 NRBC/100 WBC (test code = 9957479971) 0.0 0.0-10.0 NRBC x10^3 (test code = 0091103956) See_Comment [Automated messa ge] The system which generated this result transmitted reference range: 10*3/?L. The reference range was not used to interpret this result as normal/abnormal. GRAN MAT (NEUT) % (test code = 770-8) 56.9 % IMM GRAN % (test code = 0933704680) 0.80 % LYMPH % (test code = 736-9) 34.1 % MONO % (test code = 5905-5) 6.4 % EOS % (test code = 713-8) 1.5 % BASO % (test code = 706-2) 0.3 % GRAN MAT x10^3(ANC) (test code = 3123452196) 6.75 10*3/uL 1.88-7.09 IMM GRAN x10^3 (test code = 9383410213) 0.09 10*3/uL 0.00-0.06 H LYMPH x10^3 (test code = 731-0) 4.04 10*3/uL 1.32-3.29 H MONO x10^3 (test code = 742-7) 0.76 10*3/uL 0.33-0.92 EOS x10^3 (test code = 711-2) 0.18 10*3/uL 0.03-0.39 BASO x10^3 (test code = 704-7) 0.04 10*3/uL 0.01-0.07 REACT LYMPHS (test code = 4488369536) Rare Lab Interpretation (test code = 66671-1) [facility] (29197)2023-06-02 22:38:27* Test Item Value Reference Range Interpretation Comme nts NA (test code = 7421927956) 142 mmol/L 135-145 K (test code = 0936222079) 3.4 mmol/L 3.5-5.0 L CL (test code = 7376872816) 108 mmol/L 98-108 CO2 TOTAL (test code = 7659286299) 28 mmol/L 23-31 AGAP (test code = 1613724181) 6 2-16 BUN (test code = 3216993842) 6 mg/dL 7-23 L GLUCOSE (test code = 2764030515) 82 mg/dL 70-110 CREATININE (test code = 2160-0) 0.69 mg/dL 0.50-1.04 TOTAL BILI (test code = 3287498206) 0.3 mg/dL 0.1-1.1 CALCIUM (test code = 8695881049) 9.3 mg/dL 8.6-10.6 T PROTEIN (test code = 9883398996) 8.2 g/dL 6.3-8.2 ALBUMIN (test code = 4880325720) 4.7 g/dL 3.5-5.0 ALK PHOS (test code = 0953520832) 92 U/L 34-122 ALTv (test code = 1742-6) 25 U/L 5-35 AST(SGOT) (test code = 6102688948) 26 U/L 13-40 eGFR (test code = 48954-5) 110.6 mL/min/1.73m2 CKD-EPI eGFR (2020). Assuming creatinine has been stable day-to-day for at least three months, the eGFR indicates Category G1 (>= 90 mL/min/1.73 m2) Lab Interpretation (test code = 73432-7) [facility] (27566)2023-06-02 22:38:27* Test Item Value Reference Range Interpretation Comme nts NA (test code = 8233251784) 142 mmol/L 135-145 K (test code = 0246155118) 3.4 mmol/L 3.5-5.0 L CL (test code = 5530024924) 108 mmol/L 98-108 CO2 TOTAL (test code = 2011505521) 28 mmol/L 23-31 AGAP (test code = 6814956690) 6 2-16 BUN (test code = 5078245779) 6 mg/dL 7-23 L GLUCOSE (test code = 2651128834) 82 mg/dL 70-110 CREATININE (test code = 2160-0) 0.69 mg/dL 0.50-1.04 TOTAL BILI (test code = 7925421761) 0.3 mg/dL 0.1-1.1 CALCIUM (test code = 1946523754) 9.3 mg/dL 8.6-10.6 T PROTEIN (test code = 8423983593) 8.2 g/dL 6.3-8.2 ALBUMIN (test code = 1684514741) 4.7 g/dL 3.5-5.0 ALK PHOS (test code = 8566209267) 92 U/L 34-122 ALTv (test code = 1742-6) 25 U/L 5-35 AST(SGOT) (test code = 5622571615) 26 U/L 13-40 eGFR (test code = 65222-9) 110.6 mL/min/1.73m2 CKD-EPI eGFR (2020). Assuming creatinine has been stable day-to-day for at least three months, the eGFR indicates Category G1 (>= 90 mL/min/1.73 m2) Lab Interpretation (test code = 92476-8) Abnormal [facility] (37306)2023-06-02 22:38:27* Test Item Value Reference Range Interpretation Comme nts NA (test code = 1002928329) 142 mmol/L 135-145 K (test code = 7256034407) 3.4 mmol/L 3.5-5.0 L CL (test code = 7683128964) 108 mmol/L 98-108 CO2 TOTAL (test code = 4875145475) 28 mmol/L 23-31 AGAP (test code = 2342598434) 6 2-16 BUN (test code = 1570025900) 6 mg/dL 7-23 L GLUCOSE (test code = 0358903106) 82 mg/dL 70-110 CREATININE (test code = 2160-0) 0.69 mg/dL 0.50-1.04 TOTAL BILI (test code = 8344282494) 0.3 mg/dL 0.1-1.1 CALCIUM (test code = 0173074695) 9.3 mg/dL 8.6-10.6 T PROTEIN (test code = 7853264916) 8.2 g/dL 6.3-8.2 ALBUMIN (test code = 4605364502) 4.7 g/dL 3.5-5.0 ALK PHOS (test code = 6970314552) 92 U/L 34-122 ALTv (test code = 1742-6) 25 U/L 5-35 AST(SGOT) (test code = 3901888900) 26 U/L 13-40 eGFR (test code = 60133-9) 110.6 mL/min/1.73m2 CKD-EPI eGFR (2020). Assuming creatinine has been stable day-to-day for at least three months, the eGFR indicates Category G1 (>= 90 mL/min/1.73 m2) Lab Interpretation (test code = 43206-3) [facility]normal [facility]2024-02-27 22:38:07* Test Item Value Reference Range Interpretation Comme nts LIPASE (test code = 5529405264) 63 U/L 0-220 Lab Interpretation (test cod e = 37224-9) Normal [facility]Lipase2024-02-27 22:38:07* Test Item Value Reference Range Interpretation Comme nts LIPASE (test code = 1708056161) 63 U/L 0-220 Lab Interpretation (test cod e = 15914-2) Normal [facility]ase2024-02-27 22:38:07* Test Item Value Reference Range Interpretation Comme nts LIPASE (test code = 4896485306) 63 U/L 0-220 Lab Interpretation (test cod e = 41703-1) Normal [facility] Only Celiac Screen Bvv3988-27-32 21:03:39 * Test Item Value Reference Range Interpretation Comme nts Tissue Transglutaminase (tTG) Ab, IgA Interpretation (test code = 20174-2) Negative Negative Deamidated Gliadin Peptide (DGP) Ab, IgA Interpretation (test code = 63467-1) Negative Negative Tissue Transglutaminase (tTG) Ab, IgA (test code = 7343519538) <=7.0 Deamidated Gliadin Peptide (DGP) Ab, IgA (test code = 2745059458) 0.3 U/mL <=7.0 VIVIENNE (test code = VIVIENNE) < 7 U/mL ? Negative7 - 10 U/mL ?Equivocal> 10 U/mL ?Positive In case of equivocal results, we recommend to retest the patient after 8 -12 weeks. Lab Interpretation (test code = 02244-0) Normal [facility]active Cuzyvql4058-25-30 19:24:29* Test Item Value Reference Range Interpretation Comme nts CRP (test code = 3903473486) 0.8 mg/dL <=0.8 H Lab Interpretation (test cod e = 85367-2) [facility] Vqigem1707-63-38 19:24:29* Test Item Value Reference Range Interpretation Comme nts Total IgA (test code = 3897534896) 93.8 U/mL 70-312 Lab Interpretation (test cod e = 78741-0) Normal [facility]-Reactive Falcakm3448-62-51 19:24:29* Test Item Value Reference Range Interpretation Comme nts CRP (test code = 0387951687) 0.8 mg/dL <=0.8 H Lab Interpretation (test cod e = 07017-7) Abnormal [facility]-Reactive Wujzmey6431-47-73 19:24:29* Test Item Value Reference Range Interpretation Comme nts CRP (test code = 0491272476) 0.8 mg/dL <=0.8 H Lab Interpretation (test cod e = 29736-1) Abnormal [facility] Stimulating Ugtesmf8764-13-65 18:29:38 * Test Item Value Reference Range Interpretation Comme nts TSH (test code = 1677204852) 2.47 0.45-4.70 Lab Interpretation (test cod e = 68597-6) Normal [facility]ulating Szbacwv5599-12-19 18:29:38 * Test Item Value Reference Range Interpretation Comme nts TSH (test code = 1821661856) 2.47 0.45-4.70 Lab Interpretation (test cod e = 59958-3) Normal [facility] Stimulating Avsqsuo2496-75-66 18:29:38 * Test Item Value Reference Range Interpretation Comme nts TSH (test code = 8774195283) 2.47 0.45-4.70 Lab Interpretation (test cod e = 82308-6) [facility] (46676)2023-05-13 17:57:06* Test Item Value Reference Range Interpretation Comme nts NA (test code = 4418840047) 140 mmol/L 135-145 K (test code = 8528648070) 3.7 mmol/L 3.5-5.0 CL (test code = 1394862195) 108 mmol/L 98-108 CO2 TOTAL (test code = 7294857032) 22 mmol/L 23-31 L AGAP (test code = 1256905179) 10 2-16 BUN (test code = 7531336610) 7 mg/dL 7-23 GLUCOSE (test code = 2909850322) 98 mg/dL 70-110 CREATININE (test code = 2160-0) 0.66 mg/dL 0.50-1.04 TOTAL BILI (test code = 0785410615) 0.6 mg/dL 0.1-1.1 CALCIUM (test code = 9008010974) 9.7 mg/dL 8.6-10.6 T PROTEIN (test code = 8973550589) 7.7 g/dL 6.3-8.2 ALBUMIN (test code = 3315889640) 4.8 g/dL 3.5-5.0 ALK PHOS (test code = 1656422702) 97 U/L 34-122 ALTv (test code = 1742-6) 33 U/L 5-35 AST(SGOT) (test code = 6775470133) 36 U/L 13-40 eGFR (test code = 53264-3) 111.8 mL/min/1.73m2 CKD-EPI eGFR (2020). Assuming creatinine has been stable day-to-day for at least three months, the eGFR indicates Category G1 (>= 90 mL/min/1.73 m2) Lab Interpretation (test code = 03341-3) Abnormal [facility]ervilleCb with Baec9988-60-41 16:30:32* Test Item Value Reference Range Interpretation Comme nts WBC (test code = 6690-2) 9.37 4.30-11.10 RBC (test code = 789-8) 4.35 3.93-5.25 HGB (test code = 718-7) 13.0 g/dL 11.6-15.0 HCT (test code = 4544-3) 38.2 % 35.7-45.2 MCV (test code = 787-2) 87.8 fL 80.6-95.5 MCH (test code = 785-6) 29.9 pg 25.9-32.8 MCHC (test code = 786-4) 34.0 g/dL 31.6-35.1 RDW-SD (test code = 16957-2) 43.2 fL 39.0-49.9 RDW-CV (test code = 788-0) 13.4 % 12.0-15.5 PLT (test code = 777-3) 310 166-358 MPV (test code = 21726-3) 10.8 fL 9.5-12.9 NRBC/100 WBC (test code = 1490928231) 0.0 0.0-10.0 NRBC x10^3 (test code = 5919832161) See_Comment [Automated me ssage] The system which generated this result transmitted reference range: 10*3/?L. The reference range was not used to interpret this result as normal/abnormal. GRAN MAT (NEUT) % (test code = 770-8) 56.2 % IMM GRAN % (test code = 9110477699) 0.50 % LYMPH % (test code = 736-9) 33.1 % MONO % (test code = 5905-5) 8.1 % EOS % (test code = 713-8) 1.7 % BASO % (test code = 706-2) 0.4 % GRAN MAT x10^3(ANC) (test code = 2482918816) 5.26 10*3/uL 1.88-7.09 IMM GRAN x10^3 (test code = 2060257639) 0.05 10*3/uL 0.00-0.06 LYMPH x10^3 (test code = 731-0) 3.10 10*3/uL 1.32-3.29 MONO x10^3 (test code = 742-7) 0.76 10*3/uL 0.33-0.92 EOS x10^3 (test code = 711-2) 0.16 10*3/uL 0.03-0.39 BASO x10^3 (test code = 704-7) 0.04 10*3/uL 0.01-0.07 [facility]2024-01-04 12:39:00* Test Item Value Reference Range Interpretation Comme nts Glucose POC (test code = Glucose POC) 103 70-99 Gluc POC Comment 1 (test cod e = Gluc POC Comment 1) Notified RN/MD Ruddy Snow TO CONTACT FOR VOLUNTARY AIGMONVZ5644-24-12 21:41:40* Test Item Value Reference Range Interpretation Comme nts Consent To Contact For Volun tary Research (test code = 4947) [facility] 2023-04-02 21:41:40* Test Item Value Reference Range Interpretation Comme nts Consent To Contact For Volun tary Research (test code = 4947) Yes [facility]EARCH 2023-04-02 21:41:40* Test Item Value Reference Range Interpretation Comme nts Consent To Contact For Volun tary Research (test code = 4947) Yes [facility] 2023-04-02 21:41:40* Test Item Value Reference Range Interpretation Comme nts Consent To Contact For Volun tary Research (test code = 4947) Yes [facility] 2023-04-02 21:41:40* Test Item Value Reference Range Interpretation Comme nts Consent To Contact For Volun tary Research (test code = 4947) [facility] 2023-04-02 21:41:40* Test Item Value Reference Range Interpretation Comme nts Consent To Contact For Volun tary Research (test code = 4947) Yes [facility] KN[facility] 3 VW FGQB5292-89-03 03:51:33EXAM: XR KNEE 3 VW LEFT HISTORY: 42 years-old Female; fall injury, left knee pain . COMPARISON: None FINDINGS: Imaging of the left knee demonstrates no acute fracture or dislocation. Thealignment is maintained. The joint spaces are preserved. ?A fabella isnoted. No joint effusion.[facility] LEFT WO HDBOJUZL4230-65-29 00:02:35MR KNEE LEFT WO CONTRAST COMPARISON: None HISTORY: Acute on chronic left knee TECHNIQUE: 1.5 Floridalma m ultiplanar multiweighted imaging of the left knee wasperformed without contrast. BONE AND JOINT:No abnormal marrow signal alteration. No high-grade chondral defect. Nosignificant knee joint effusion.Normal patellar alignment. MENISCI:Medial and lateral menisci are intact LIGAMENTS AND TENDONS:The cruciate ligaments, medial collateral ligament, lateral collateralligamentous complex, extensor mechanism, lateral patellofemoralretinaculum, and medial patellofemoral ligament are intact. SOFT TISSUES:No muscle atrophy is demonstrated. No solid soft tissue masses are present.Trace soft tissue edemabetween the distal IT band and lateral femoralcondyle. Quadriceps fat pad edema with convexity of the posterior border.[facility]. METABOLIC PANEL (90329) 2022-12-16 05:59:11* Test Item Value Reference Range Interpretation Comme nts NA (test code = 1070914619) 140 mmol/L 135-145 K (test code = 0550600508) 4.1 mmol/L 3.5-5.0 CL (test code = 6301289568) 105 mmol/L 98-108 CO2 TOTAL (test code = 7755077505) 19 mmol/L 23-31 L AGAP (test code = 3900825290) 16 2-16 BUN (test code = 0363459167) 13 mg/dL 7-23 GLUCOSE (test code = 1201331353) 130 mg/dL 70-110 H CREATININE (test code = 1926071278) 0.74 mg/dL 0.50-1.04 TOTAL BILI (test code = 4099564050) 0.5 mg/dL 0.1-1.1 CALCIUM (test code = 5703806974) 9.7 mg/dL 8.6-10.6 T PROTEIN (test code = 2789965425) 8.4 g/dL 6.3-8.2 H ALBUMIN (test code = 9751087806) 4.9 g/dL 3.5-5.0 ALK PHOS (test code = 9494635160) 111 U/L 34-122 ALTv (test code = 1742-6) 69 U/L 5-35 H AST(SGOT) (test code = 7895878557) 85 U/L 13-40 H eGFR (test code = 4246169429) 85.7 mL/min/1.73m2 VIVIENNE (test code = VIVIENNE) Association of Glomerular Filtration Rate (GFR) and Staging of Kidney Disease* + --+ --+ ------+| GFR (mL/min/1.73 m2) ?| With Kidney Damage ?| ?Without Kidney Damage+ --------+ --------+ +| ?>90 ?| ?Stage one ?| ? Normal ?+ ---+ ---+ -------+| ?60-89 ?| ?Stage two ?| ? Decreased GFR ? + --+ --+ ------+| ?30-59 ?| ?Stage three ?| ? Stage three ? + --+ --+ ------+| ?15-29 ?| ?Stage four ? | ? Stage four ?+ ---+ ---+ -------+| ?<15 (or dialysis) ? ?| ?Stage five ? | ? Stage five ?+ ---+ ---+ -------+ *Each stage assumes the associated GFR level has been in effect for at least three months. ?Stages 1 to 5, with or without kidney disease, indicate chronic kidney disease. Notes: Determination of stages one and two (with eGFR >59mL/min/1.73 m2) requires estimation of kidney damage for at least three months as defined by structural or functional abnormalities of the kidney, manifested by either:Pathological abnormalities or Markers of kidney damage (including abnormalities in the composition of the blood or urine or abnormalities in imaging tests). Lab Interpretation (test code = 13101-8) [id number] Test Item Value Reference Range Interpretation Comme nts LIPASE (test code = 8076612468) 53 U/L 0-220 Lab Interpretation (test cod e = 12046-9) [facility]* Test Item Value Reference Range Interpretation Comme nts LIPASE (test code = 3494153944) 53 U/L 0-220 Lab Interpretation (test cod e = 88367-5) [facility] [place] (97907)2022-12-16 05:59:11* Test Item Value Reference Range Interpretation Comme nts NA (test code = 4013427595) 140 mmol/L 135-145 K (test code = 1698483079) 4.1 mmol/L 3.5-5.0 CL (test code = 0785475874) 105 mmol/L 98-108 CO2 TOTAL (test code = 6870970436) 19 mmol/L 23-31 L AGAP (test code = 9653681605) 16 2-16 BUN (test code = 7370441046) 13 mg/dL 7-23 GLUCOSE (test code = 7851547177) 130 mg/dL 70-110 H CREATININE (test code = 2634046768) 0.74 mg/dL 0.50-1.04 TOTAL BILI (test code = 7417114781) 0.5 mg/dL 0.1-1.1 CALCIUM (test code = 5937654772) 9.7 mg/dL 8.6-10.6 T PROTEIN (test code = 5815902314) 8.4 g/dL 6.3-8.2 H ALBUMIN (test code = 5805993342) 4.9 g/dL 3.5-5.0 ALK PHOS (test code = 0768148883) 111 U/L 34-122 ALTv (test code = 1742-6) 69 U/L 5-35 H AST(SGOT) (test code = 9451321390) 85 U/L 13-40 H eGFR (test code = 7696701220) 85.7 mL/min/1.73m2 VIVIENNE (test code = VIVIENNE) Association of Glomerular Filtration Rate (GFR) and Staging of Kidney Disease* + --+ --+ ------+| GFR (mL/min/1.73 m2) ?| With Kidney Damage ?| ?Without Kidney Damage+ --------+ --------+ +| ?>90 ?| ?Stage one ?| ? Normal ?+ ---+ ---+ -------+| ?60-89 ?| ?Stage two ?| ? Decreased GFR ? + --+ --+ ------+| ?30-59 ?| ?Stage three ?| ? Stage three ? + --+ --+ ------+| ?15-29 ?| ?Stage four ? | ? Stage four ?+ ---+ ---+ -------+| ?<15 (or dialysis) ? ?| ?Stage five ? | ? Stage five ?+ ---+ ---+ -------+ *Each stage assumes the associated GFR level has been in effect for at least three months. ?Stages 1 to 5, with or without kidney disease, indicate chronic kidney disease. Notes: Determination of stages one and two (with eGFR >59mL/min/1.73 m2) requires estimation of kidney damage for at least three months as defined by structural or functional abnormalities of the kidney, manifested by either:Pathological abnormalities or Markers of kidney damage (including abnormalities in the composition of the blood or urine or abnormalities in imaging tests). Lab Interpretation (test code = 22616-0) [facility] Test Item Value Reference Range Interpretation Comme nts LIPASE (test code = 0544826857) 53 U/L 0-220 Lab Interpretation (test cod e = 47245-8) [facility] ([id number])2022-12-16 05:59:11* Test Item Value Reference Range Interpretation Comme nts NA (test code = 1634826066) 140 mmol/L 135-145 K (test code = 4477373795) 4.1 mmol/L 3.5-5.0 CL (test code = 1316689007) 105 mmol/L 98-108 CO2 TOTAL (test code = 4558683125) 19 mmol/L 23-31 L AGAP (test code = 2370425236) 16 2-16 BUN (test code = 9645322391) 13 mg/dL 7-23 GLUCOSE (test code = 3107376774) 130 mg/dL 70-110 H CREATININE (test code = 3969209141) 0.74 mg/dL 0.50-1.04 TOTAL BILI (test code = 7944816089) 0.5 mg/dL 0.1-1.1 CALCIUM (test code = 2922294656) 9.7 mg/dL 8.6-10.6 T PROTEIN (test code = 5093539390) 8.4 g/dL 6.3-8.2 H ALBUMIN (test code = 0002344365) 4.9 g/dL 3.5-5.0 ALK PHOS (test code = 3196234594) 111 U/L 34-122 ALTv (test code = 1742-6) 69 U/L 5-35 H AST(SGOT) (test code = 2403160579) 85 U/L 13-40 H eGFR (test code = 6231250022) 85.7 mL/min/1.73m2 VIVIENNE (test code = VIVIENNE) Association of Glomerular Filtration Rate (GFR) and Staging of Kidney Disease* + --+ --+ ------+| GFR (mL/min/1.73 m2) ?| With Kidney Damage ?| ?Without Kidney Damage+ --------+ --------+ +| ?>90 ?| ?Stage one ?| ? Normal ?+ ---+ ---+ -------+| ?60-89 ?| ?Stage two ?| ? Decreased GFR ? + --+ --+ ------+| ?30-59 ?| ?Stage three ?| ? Stage three ? + --+ --+ ------+| ?15-29 ?| ?Stage four ? | ? Stage four ?+ ---+ ---+ -------+| ?<15 (or dialysis) ? ?| ?Stage five ? | ? Stage five ?+ ---+ ---+ -------+ *Each stage assumes the associated GFR level has been in effect for at least three months. ?Stages 1 to 5, with or without kidney disease, indicate chronic kidney disease. Notes: Determination of stages one and two (with eGFR >59mL/min/1.73 m2) requires estimation of kidney damage for at least three months as defined by structural or functional abnormalities of the kidney, manifested by either:Pathological abnormalities or Markers of kidney damage (including abnormalities in the composition of the blood or urine or abnormalities in imaging tests). Lab Interpretation (test code = 68407-3) [facility]* Test Item Value Reference Range Interpretation Comme nts LIPASE (test code = 5281470224) 53 U/L 0-220 Lab Interpretation (test cod e = 55824-5) [facility] ([id number])2022-12-16 05:59:11* Test Item Value Reference Range Interpretation Comme nts NA (test code = 6333735238) 140 mmol/L 135-145 K (test code = 5154220447) 4.1 mmol/L 3.5-5.0 CL (test code = 3742302417) 105 mmol/L 98-108 CO2 TOTAL (test code = 1411092320) 19 mmol/L 23-31 L AGAP (test code = 1265995501) 16 2-16 BUN (test code = 8704451110) 13 mg/dL 7-23 GLUCOSE (test code = 3470201529) 130 mg/dL 70-110 H CREATININE (test code = 0484472502) 0.74 mg/dL 0.50-1.04 TOTAL BILI (test code = 2307575279) 0.5 mg/dL 0.1-1.1 CALCIUM (test code = 9123669111) 9.7 mg/dL 8.6-10.6 T PROTEIN (test code = 1296735278) 8.4 g/dL 6.3-8.2 H ALBUMIN (test code = 6911516854) 4.9 g/dL 3.5-5.0 ALK PHOS (test code = 1593583883) 111 U/L 34-122 ALTv (test code = 1742-6) 69 U/L 5-35 H AST(SGOT) (test code = 6781958117) 85 U/L 13-40 H eGFR (test code = 99733-7) 85.7 mL/min/1.73m2 VIVIENNE (test code = VIVIENNE) Association of Glomerular Filtration Rate (GFR) and Staging of Kidney Disease* + --+ --+ ------+| GFR (mL/min/1.73 m2) ?| With Kidney Damage ?| ?Without Kidney Damage+ --------+ --------+ +| ?>90 ?| ?Stage one ?| ? Normal ?+ ---+ ---+ -------+| ?60-89 ?| ?Stage two ?| ? Decreased GFR ? + --+ --+ ------+| ?30-59 ?| ?Stage three ?| ? Stage three ? + --+ --+ ------+| ?15-29 ?| ?Stage four ? | ? Stage four ?+ ---+ ---+ -------+| ?<15 (or dialysis) ? ?| ?Stage five ? | ? Stage five ?+ ---+ ---+ -------+ *Each stage assumes the associated GFR level has been in effect for at least three months. ?Stages 1 to 5, with or without kidney disease, indicate chronic kidney disease. Notes: Determination of stages one and two (with eGFR >59mL/min/1.73 m2) requires estimation of kidney damage for at least three months as defined by structural or functional abnormalities of the kidney, manifested by either:Pathological abnormalities or Markers of kidney damage (including abnormalities in the composition of the blood or urine or abnormalities in imaging tests). Lab Interpretation (test code = 64934-0) [facility] 05[facility]* Test Item Value Reference Range Interpretation Comme nts LIPASE (test code = 1261349316) 53 U/L 0-220 Lab Interpretation (test cod e = 32660-3) [facility] ([id number])2022-12-16 05:59:11* Test Item Value Reference Range Interpretation Comme nts NA (test code = 4743684073) 140 mmol/L 135-145 K (test code = 1755164491) 4.1 mmol/L 3.5-5.0 CL (test code = 9794574575) 105 mmol/L 98-108 CO2 TOTAL (test code = 0326629846) 19 mmol/L 23-31 L AGAP (test code = 4388281743) 16 2-16 BUN (test code = 7128851424) 13 mg/dL 7-23 GLUCOSE (test code = 7154895787) 130 mg/dL 70-110 H CREATININE (test code = 5196737775) 0.74 mg/dL 0.50-1.04 TOTAL BILI (test code = 3947391859) 0.5 mg/dL 0.1-1.1 CALCIUM (test code = 7961314379) 9.7 mg/dL 8.6-10.6 T PROTEIN (test code = 1899931346) 8.4 g/dL 6.3-8.2 H ALBUMIN (test code = 9699525934) 4.9 g/dL 3.5-5.0 ALK PHOS (test code = 4638100283) 111 U/L 34-122 ALTv (test code = 1742-6) 69 U/L 5-35 H AST(SGOT) (test code = 4345790128) 85 U/L 13-40 H eGFR (test code = 45977-4) 85.7 mL/min/1.73m2 VIVIENNE (test code = VIVIENNE) Association of Glomerular Filtration Rate (GFR) and Staging of Kidney Disease* + --+ --+ ------+| GFR (mL/min/1.73 m2) ?| With Kidney Damage ?| ?Without Kidney Damage+ --------+ --------+ +| ?>90 ?| ?Stage one ?| ? Normal ?+ ---+ ---+ -------+| ?60-89 ?| ?Stage two ?| ? Decreased GFR ? + --+ --+ ------+| ?30-59 ?| ?Stage three ?| ? Stage three ? + --+ --+ ------+| ?15-29 ?| ?Stage four ? | ? Stage four ?+ ---+ ---+ -------+| ?<15 (or dialysis) ? ?| ?Stage five ? | ? Stage five ?+ ---+ ---+ -------+ *Each stage assumes the associated GFR level has been in effect for at least three months. ?Stages 1 to 5, with or without kidney disease, indicate chronic kidney disease. Notes: Determination of stages one and two (with eGFR >59mL/min/1.73 m2) requires estimation of kidney damage for at least three months as defined by structural or functional abnormalities of the kidney, manifested by either:Pathological abnormalities or Markers of kidney damage (including abnormalities in the composition of the blood or urine or abnormalities in imaging tests). Lab Interpretation (test code = 79115-4) [facility] 05[facility]* Test Item Value Reference Range Interpretation Comme nts LIPASE (test code = 4215573294) 53 U/L 0-220 Lab Interpretation (test cod e = 08513-1) [facility] ([id number])2022-12-16 05:59:11* Test Item Value Reference Range Interpretation Comme nts NA (test code = 2922238708) 140 mmol/L 135-145 K (test code = 2252061830) 4.1 mmol/L 3.5-5.0 CL (test code = 5913594125) 105 mmol/L 98-108 CO2 TOTAL (test code = 5341224311) 19 mmol/L 23-31 L AGAP (test code = 3348438242) 16 2-16 BUN (test code = 6072851896) 13 mg/dL 7-23 GLUCOSE (test code = 2922139723) 130 mg/dL 70-110 H CREATININE (test code = 3730678189) 0.74 mg/dL 0.50-1.04 TOTAL BILI (test code = 2248931044) 0.5 mg/dL 0.1-1.1 CALCIUM (test code = 5094196887) 9.7 mg/dL 8.6-10.6 T PROTEIN (test code = 4619336201) 8.4 g/dL 6.3-8.2 H ALBUMIN (test code = 6248687818) 4.9 g/dL 3.5-5.0 ALK PHOS (test code = 4369725390) 111 U/L 34-122 ALTv (test code = 1742-6) 69 U/L 5-35 H AST(SGOT) (test code = 8473940293) 85 U/L 13-40 H eGFR (test code = 37436-9) 85.7 mL/min/1.73m2 VIVIENNE (test code = VIVIENNE) Association of Glomerular Filtration Rate (GFR) and Staging of Kidney Disease* + --+ --+ ------+| GFR (mL/min/1.73 m2) ?| With Kidney Damage ?| ?Without Kidney Damage+ --------+ --------+ +| ?>90 ?| ?Stage one ?| ? Normal ?+ ---+ ---+ -------+| ?60-89 ?| ?Stage two ?| ? Decreased GFR ? + --+ --+ ------+| ?30-59 ?| ?Stage three ?| ? Stage three ? + --+ --+ ------+| ?15-29 ?| ?Stage four ? | ? Stage four ?+ ---+ ---+ -------+| ?<15 (or dialysis) ? ?| ?Stage five ? | ? Stage five ?+ ---+ ---+ -------+ *Each stage assumes the associated GFR level has been in effect for at least three months. ?Stages 1 to 5, with or without kidney disease, indicate chronic kidney disease. Notes: Determination of stages one and two (with eGFR >59mL/min/1.73 m2) requires estimation of kidney damage for at least three months as defined by structural or functional abnormalities of the kidney, manifested by either:Pathological abnormalities or Markers of kidney damage (including abnormalities in the composition of the blood or urine or abnormalities in imaging tests). Lab Interpretation (test code = 57212-4) [facility] 05[facility]:11* Test Item Value Reference Range Interpretation Comme nts LIPASE (test code = 2129393216) 53 U/L 0-220 Lab Interpretation (test cod e = 31825-8) [facility] ([id number])2022-12-16 05:59:11* Test Item Value Reference Range Interpretation Comme nts NA (test code = 8741473770) 140 mmol/L 135-145 K (test code = 6509777425) 4.1 mmol/L 3.5-5.0 CL (test code = 6123011373) 105 mmol/L 98-108 CO2 TOTAL (test code = 4514908793) 19 mmol/L 23-31 L AGAP (test code = 9812634131) 16 2-16 BUN (test code = 3462642271) 13 mg/dL 7-23 GLUCOSE (test code = 1836168397) 130 mg/dL 70-110 H CREATININE (test code = 9350853912) 0.74 mg/dL 0.50-1.04 TOTAL BILI (test code = 6679350036) 0.5 mg/dL 0.1-1.1 CALCIUM (test code = 3422143042) 9.7 mg/dL 8.6-10.6 T PROTEIN (test code = 9187450689) 8.4 g/dL 6.3-8.2 H ALBUMIN (test code = 4208632292) 4.9 g/dL 3.5-5.0 ALK PHOS (test code = 8867565899) 111 U/L 34-122 ALTv (test code = 1742-6) 69 U/L 5-35 H AST(SGOT) (test code = 8162855180) 85 U/L 13-40 H eGFR (test code = 57012-0) 85.7 mL/min/1.73m2 VIVIENNE (test code = VIVIENNE) Association of Glomerular Filtration Rate (GFR) and Staging of Kidney Disease* + --+ --+ ------+| GFR (mL/min/1.73 m2) ?| With Kidney Damage ?| ?Without Kidney Damage+ --------+ --------+ +| ?>90 ?| ?Stage one ?| ? Normal ?+ ---+ ---+ -------+| ?60-89 ?| ?Stage two ?| ? Decreased GFR ? + --+ --+ ------+| ?30-59 ?| ?Stage three ?| ? Stage three ? + --+ --+ ------+| ?15-29 ?| ?Stage four ? | ? Stage four ?+ ---+ ---+ -------+| ?<15 (or dialysis) ? ?| ?Stage five ? | ? Stage five ?+ ---+ ---+ -------+ *Each stage assumes the associated GFR level has been in effect for at least three months. ?Stages 1 to 5, with or without kidney disease, indicate chronic kidney disease. Notes: Determination of stages one and two (with eGFR >59mL/min/1.73 m2) requires estimation of kidney damage for at least three months as defined by structural or functional abnormalities of the kidney, manifested by either:Pathological abnormalities or Markers of kidney damage (including abnormalities in the composition of the blood or urine or abnormalities in imaging tests). Lab Interpretation (test code = 74984-9) Abnormal [facility] WITH [id number] 05:46:07* Test Item Value Reference Range Interpretation Comme nts WBC (test code = 6690-2) 12.35 See_Comment H [Automated message] The system which generated this result transmitted reference range: 4.30 - 11.10 10*3/?L. The reference range was not used to interpret this result as normal/abnormal. RBC (test code = 789-8) 4.99 See_Comment [Automated message] The system which generated this result transmitted reference range: 3.93 - 5.25 10*6/?L. The reference range was not used to interpret this result as normal/abnormal. HGB (test code = 718-7) 14.6 g/dL 11.6-15.0 HCT (test code = 4544-3) 42.5 % 35.7-45.2 MCV (test code = 787-2) 85.2 fL 80.6-95.5 MCH (test code = 785-6) 29.3 pg 25.9-32.8 MCHC (test code = 786-4) 34.4 g/dL 31.6-35.1 RDW-SD (test code = 77929-0) 41.0 fL 39.0-49.9 RDW-CV (test code = 788-0) 13.3 % 12.0-15.5 PLT (test code = 777-3) 318 See_Comment [Automated message] The system which generated this result transmitted reference range: 166 - 358 10*3/?L. The reference range was not used to interpret this result as normal/abnormal. MPV (test code = 06145-0) 10.3 fL 9.5-12.9 NRBC/100 WBC (test code = 2480488692) 0.0 See_Comment [Automated message] The system which generated this result transmitted reference range: 0.0 - 10.0 /100 WBCs. The reference range was not used to interpret this result as normal/abnormal. NRBC x10^3 (test code = 9082369013) See_Comment [Automated message] The system which generated this result transmitted reference range: 10*3/?L. The reference range was not used to interpret this result as normal/abnormal. GRAN MAT (NEUT) % (test code = 770-8) 85.6 % IMM GRAN % (test code = 0712600822) 0.60 % LYMPH % (test code = 736-9) 6.3 % MONO % (test code = 5905-5) 6.2 % EOS % (test code = 713-8) 1.1 % BASO % (test code = 706-2) 0.2 % GRAN MAT x10^3(ANC) (test code = 5462129727) 10.56 10*3/uL 1.88-7.09 H IMM GRAN x10^3 (test code = 5771034621) 0.08 10*3/uL 0.00-0.06 H LYMPH x10^3 (test code = 731-0) 0.78 10*3/uL 1.32-3.29 L MONO x10^3 (test code = 742-7) 0.77 10*3/uL 0.33-0.92 EOS x10^3 (test code = 711-2) 0.13 10*3/uL 0.03-0.39 BASO x10^3 (test code = 704-7) 0.03 10*3/uL 0.01-0.07 Lab Interpretation (test code = 24379-6) Abnormal [facility] WITH [id number] 05:46:07* Test Item Value Reference Range Interpretation Comme nts WBC (test code = 6690-2) 12.35 See_Comment H [Automated message] The system which generated this result transmitted reference range: 4.30 - 11.10 10*3/?L. The reference range was not used to interpret this result as normal/abnormal. RBC (test code = 789-8) 4.99 See_Comment [Automated message] The system which generated this result transmitted reference range: 3.93 - 5.25 10*6/?L. The reference range was not used to interpret this result as normal/abnormal. HGB (test code = 718-7) 14.6 g/dL 11.6-15.0 HCT (test code = 4544-3) 42.5 % 35.7-45.2 MCV (test code = 787-2) 85.2 fL 80.6-95.5 MCH (test code = 785-6) 29.3 pg 25.9-32.8 MCHC (test code = 786-4) 34.4 g/dL 31.6-35.1 RDW-SD (test code = 18143-0) 41.0 fL 39.0-49.9 RDW-CV (test code = 788-0) 13.3 % 12.0-15.5 PLT (test code = 777-3) 318 See_Comment [Automated message] The system which generated this result transmitted reference range: 166 - 358 10*3/?L. The reference range was not used to interpret this result as normal/abnormal. MPV (test code = 47001-0) 10.3 fL 9.5-12.9 NRBC/100 WBC (test code = 3275554838) 0.0 See_Comment [Automated message] The system which generated this result transmitted reference range: 0.0 - 10.0 /100 WBCs. The reference range was not used to interpret this result as normal/abnormal. NRBC x10^3 (test code = 4944354572) See_Comment [Automated message] The system which generated this result transmitted reference range: 10*3/?L. The reference range was not used to interpret this result as normal/abnormal. GRAN MAT (NEUT) % (test code = 770-8) 85.6 % IMM GRAN % (test code = 1279386624) 0.60 % LYMPH % (test code = 736-9) 6.3 % MONO % (test code = 5905-5) 6.2 % EOS % (test code = 713-8) 1.1 % BASO % (test code = 706-2) 0.2 % GRAN MAT x10^3(ANC) (test code = 0641665584) 10.56 10*3/uL 1.88-7.09 H IMM GRAN x10^3 (test code = 1997184543) 0.08 10*3/uL 0.00-0.06 H LYMPH x10^3 (test code = 731-0) 0.78 10*3/uL 1.32-3.29 L MONO x10^3 (test code = 742-7) 0.77 10*3/uL 0.33-0.92 EOS x10^3 (test code = 711-2) 0.13 10*3/uL 0.03-0.39 BASO x10^3 (test code = 704-7) 0.03 10*3/uL 0.01-0.07 Lab Interpretation (test code = 46153-2) Abnormal [facility] WITH [id number] 05:46:07* Test Item Value Reference Range Interpretation Comme nts WBC (test code = 6690-2) 12.35 See_Comment H [Automated message] The system which generated this result transmitted reference range: 4.30 - 11.10 10*3/?L. The reference range was not used to interpret this result as normal/abnormal. RBC (test code = 789-8) 4.99 See_Comment [Automated message] The system which generated this result transmitted reference range: 3.93 - 5.25 10*6/?L. The reference range was not used to interpret this result as normal/abnormal. HGB (test code = 718-7) 14.6 g/dL 11.6-15.0 HCT (test code = 4544-3) 42.5 % 35.7-45.2 MCV (test code = 787-2) 85.2 fL 80.6-95.5 MCH (test code = 785-6) 29.3 pg 25.9-32.8 MCHC (test code = 786-4) 34.4 g/dL 31.6-35.1 RDW-SD (test code = 43635-8) 41.0 fL 39.0-49.9 RDW-CV (test code = 788-0) 13.3 % 12.0-15.5 PLT (test code = 777-3) 318 See_Comment [Automated message] The system which generated this result transmitted reference range: 166 - 358 10*3/?L. The reference range was not used to interpret this result as normal/abnormal. MPV (test code = 75175-7) 10.3 fL 9.5-12.9 NRBC/100 WBC (test code = 7217483697) 0.0 See_Comment [Automated message] The system which generated this result transmitted reference range: 0.0 - 10.0 /100 WBCs. The reference range was not used to interpret this result as normal/abnormal. NRBC x10^3 (test code = 7510438273) See_Comment [Automated message] The system which generated this result transmitted reference range: 10*3/?L. The reference range was not used to interpret this result as normal/abnormal. GRAN MAT (NEUT) % (test code = 770-8) 85.6 % IMM GRAN % (test code = 6542428188) 0.60 % LYMPH % (test code = 736-9) 6.3 % MONO % (test code = 5905-5) 6.2 % EOS % (test code = 713-8) 1.1 % BASO % (test code = 706-2) 0.2 % GRAN MAT x10^3(ANC) (test code = 2204507682) 10.56 10*3/uL 1.88-7.09 H IMM GRAN x10^3 (test code = 4645668656) 0.08 10*3/uL 0.00-0.06 H LYMPH x10^3 (test code = 731-0) 0.78 10*3/uL 1.32-3.29 L MONO x10^3 (test code = 742-7) 0.77 10*3/uL 0.33-0.92 EOS x10^3 (test code = 711-2) 0.13 10*3/uL 0.03-0.39 BASO x10^3 (test code = 704-7) 0.03 10*3/uL 0.01-0.07 Lab Interpretation (test code = 28059-9) Abnormal [facility] WITH [id number] 05:46:07* Test Item Value Reference Range Interpretation Comme nts WBC (test code = 6690-2) 12.35 See_Comment H [Automated message] The system which generated this result transmitted reference range: 4.30 - 11.10 10*3/?L. The reference range was not used to interpret this result as normal/abnormal. RBC (test code = 789-8) 4.99 See_Comment [Automated message] The system which generated this result transmitted reference range: 3.93 - 5.25 10*6/?L. The reference range was not used to interpret this result as normal/abnormal. HGB (test code = 718-7) 14.6 g/dL 11.6-15.0 HCT (test code = 4544-3) 42.5 % 35.7-45.2 MCV (test code = 787-2) 85.2 fL 80.6-95.5 MCH (test code = 785-6) 29.3 pg 25.9-32.8 MCHC (test code = 786-4) 34.4 g/dL 31.6-35.1 RDW-SD (test code = 20613-4) 41.0 fL 39.0-49.9 RDW-CV (test code = 788-0) 13.3 % 12.0-15.5 PLT (test code = 777-3) 318 See_Comment [Automated message] The system which generated this result transmitted reference range: 166 - 358 10*3/?L. The reference range was not used to interpret this result as normal/abnormal. MPV (test code = 06698-3) 10.3 fL 9.5-12.9 NRBC/100 WBC (test code = 2400981229) 0.0 See_Comment [Automated message] The system which generated this result transmitted reference range: 0.0 - 10.0 /100 WBCs. The reference range was not used to interpret this result as normal/abnormal. NRBC x10^3 (test code = 3950415368) See_Comment [Automated message] The system which generated this result transmitted reference range: 10*3/?L. The reference range was not used to interpret this result as normal/abnormal. GRAN MAT (NEUT) % (test code = 770-8) 85.6 % IMM GRAN % (test code = 4298776721) 0.60 % LYMPH % (test code = 736-9) 6.3 % MONO % (test code = 5905-5) 6.2 % EOS % (test code = 713-8) 1.1 % BASO % (test code = 706-2) 0.2 % GRAN MAT x10^3(ANC) (test code = 9688415586) 10.56 10*3/uL 1.88-7.09 H IMM GRAN x10^3 (test code = 5700135238) 0.08 10*3/uL 0.00-0.06 H LYMPH x10^3 (test code = 731-0) 0.78 10*3/uL 1.32-3.29 L MONO x10^3 (test code = 742-7) 0.77 10*3/uL 0.33-0.92 EOS x10^3 (test code = 711-2) 0.13 10*3/uL 0.03-0.39 BASO x10^3 (test code = 704-7) 0.03 10*3/uL 0.01-0.07 Lab Interpretation (test code = 56182-9) Abnormal [facility] WITH [id number] 05:46:07* Test Item Value Reference Range Interpretation Comme nts WBC (test code = 6690-2) 12.35 See_Comment H [Automated message] The system which generated this result transmitted reference range: 4.30 - 11.10 10*3/?L. The reference range was not used to interpret this result as normal/abnormal. RBC (test code = 789-8) 4.99 See_Comment [Automated message] The system which generated this result transmitted reference range: 3.93 - 5.25 10*6/?L. The reference range was not used to interpret this result as normal/abnormal. HGB (test code = 718-7) 14.6 g/dL 11.6-15.0 HCT (test code = 4544-3) 42.5 % 35.7-45.2 MCV (test code = 787-2) 85.2 fL 80.6-95.5 MCH (test code = 785-6) 29.3 pg 25.9-32.8 MCHC (test code = 786-4) 34.4 g/dL 31.6-35.1 RDW-SD (test code = 20841-3) 41.0 fL 39.0-49.9 RDW-CV (test code = 788-0) 13.3 % 12.0-15.5 PLT (test code = 777-3) 318 See_Comment [Automated message] The system which generated this result transmitted reference range: 166 - 358 10*3/?L. The reference range was not used to interpret this result as normal/abnormal. MPV (test code = 86811-7) 10.3 fL 9.5-12.9 NRBC/100 WBC (test code = [id number]) 0.0 See_Comment [Automated message] The system which generated this result transmitted reference range: 0.0 - 10.0 /100 WBCs. The reference range was not used to interpret this result as normal/abnormal. NRBC x10^3 (test code = 2080375695) See_Comment [Automated message] The system which generated this result transmitted reference range: 10*3/?L. The reference range was not used to interpret this result as normal/abnormal. GRAN MAT (NEUT) % (test code = 770-8) 85.6 % IMM GRAN % (test code = 9683242570) 0.60 % LYMPH % (test code = 736-9) 6.3 % MONO % (test code = 5905-5) 6.2 % EOS % (test code = 713-8) 1.1 % BASO % (test code = 706-2) 0.2 % GRAN MAT x10^3(ANC) (test code = 3843013408) 10.56 10*3/uL 1.88-7.09 H IMM GRAN x10^3 (test code = 1083634754) 0.08 10*3/uL 0.00-0.06 H LYMPH x10^3 (test code = 731-0) 0.78 10*3/uL 1.32-3.29 L MONO x10^3 (test code = 742-7) 0.77 10*3/uL 0.33-0.92 EOS x10^3 (test code = 711-2) 0.13 10*3/uL 0.03-0.39 BASO x10^3 (test code = 704-7) 0.03 10*3/uL 0.01-0.07 Lab Interpretation (test code = 79172-1) Abnormal [facility] WITH [id number] 05:46:07* Test Item Value Reference Range Interpretation Comme nts WBC (test code = 6690-2) 12.35 See_Comment H [Automated message] The system which generated this result transmitted reference range: 4.30 - 11.10 10*3/?L. The reference range was not used to interpret this result as normal/abnormal. RBC (test code = 789-8) 4.99 See_Comment [Automated message] The system which generated this result transmitted reference range: 3.93 - 5.25 10*6/?L. The reference range was not used to interpret this result as normal/abnormal. HGB (test code = 718-7) 14.6 g/dL 11.6-15.0 HCT (test code = 4544-3) 42.5 % 35.7-45.2 MCV (test code = 787-2) 85.2 fL 80.6-95.5 MCH (test code = 785-6) 29.3 pg 25.9-32.8 MCHC (test code = 786-4) 34.4 g/dL 31.6-35.1 RDW-SD (test code = 86782-5) 41.0 fL 39.0-49.9 RDW-CV (test code = 788-0) 13.3 % 12.0-15.5 PLT (test code = 777-3) 318 See_Comment [Automated message] The system which generated this result transmitted reference range: 166 - 358 10*3/?L. The reference range was not used to interpret this result as normal/abnormal. MPV (test code = 49495-3) 10.3 fL 9.5-12.9 NRBC/100 WBC (test code = 5288056313) 0.0 See_Comment [Automated message] The system which generated this result transmitted reference range: 0.0 - 10.0 /100 WBCs. The reference range was not used to interpret this result as normal/abnormal. NRBC x10^3 (test code = 8393021825) See_Comment [Automated message] The system which generated this result transmitted reference range: 10*3/?L. The reference range was not used to interpret this result as normal/abnormal. GRAN MAT (NEUT) % (test code = 770-8) 85.6 % IMM GRAN % (test code = 3246348358) 0.60 % LYMPH % (test code = 736-9) 6.3 % MONO % (test code = 5905-5) 6.2 % EOS % (test code = 713-8) 1.1 % BASO % (test code = 706-2) 0.2 % GRAN MAT x10^3(ANC) (test code = 5430103362) 10.56 10*3/uL 1.88-7.09 H IMM GRAN x10^3 (test code = 1376732536) 0.08 10*3/uL 0.00-0.06 H LYMPH x10^3 (test code = 731-0) 0.78 10*3/uL 1.32-3.29 L MONO x10^3 (test code = 742-7) 0.77 10*3/uL 0.33-0.92 EOS x10^3 (test code = 711-2) 0.13 10*3/uL 0.03-0.39 BASO x10^3 (test code = 704-7) 0.03 10*3/uL 0.01-0.07 Lab Interpretation (test code = 70944-1) Abnormal [facility] WITH [id number] 05:46:07* Test Item Value Reference Range Interpretation Comme nts WBC (test code = 6690-2) 12.35 See_Comment H [Automated message] The system which generated this result transmitted reference range: 4.30 - 11.10 10*3/?L. The reference range was not used to interpret this result as normal/abnormal. RBC (test code = 789-8) 4.99 See_Comment [Automated message] The system which generated this result transmitted reference range: 3.93 - 5.25 10*6/?L. The reference range was not used to interpret this result as normal/abnormal. HGB (test code = 718-7) 14.6 g/dL 11.6-15.0 HCT (test code = 4544-3) 42.5 % 35.7-45.2 MCV (test code = 787-2) 85.2 fL 80.6-95.5 MCH (test code = 785-6) 29.3 pg 25.9-32.8 MCHC (test code = 786-4) 34.4 g/dL 31.6-35.1 RDW-SD (test code = 61535-4) 41.0 fL 39.0-49.9 RDW-CV (test code = 788-0) 13.3 % 12.0-15.5 PLT (test code = 777-3) 318 See_Comment [Automated message] The system which generated this result transmitted reference range: 166 - 358 10*3/?L. The reference range was not used to interpret this result as normal/abnormal. MPV (test code = 06121-1) 10.3 fL 9.5-12.9 NRBC/100 WBC (test code = 4051974447) 0.0 See_Comment [Automated message] The system which generated this result transmitted reference range: 0.0 - 10.0 /100 WBCs. The reference range was not used to interpret this result as normal/abnormal. NRBC x10^3 (test code = 8395081587) See_Comment [Automated message] The system which generated this result transmitted reference range: 10*3/?L. The reference range was not used to interpret this result as normal/abnormal. GRAN MAT (NEUT) % (test code = 770-8) 85.6 % IMM GRAN % (test code = 5717788174) 0.60 % LYMPH % (test code = 736-9) 6.3 % MONO % (test code = 5905-5) 6.2 % EOS % (test code = 713-8) 1.1 % BASO % (test code = 706-2) 0.2 % GRAN MAT x10^3(ANC) (test code = 9754638874) 10.56 10*3/uL 1.88-7.09 H IMM GRAN x10^3 (test code = 4932948153) 0.08 10*3/uL 0.00-0.06 H LYMPH x10^3 (test code = 731-0) 0.78 10*3/uL 1.32-3.29 L MONO x10^3 (test code = 742-7) 0.77 10*3/uL 0.33-0.92 EOS x10^3 (test code = 711-2) 0.13 10*3/uL 0.03-0.39 BASO x10^3 (test code = 704-7) 0.03 10*3/uL 0.01-0.07 Lab Interpretation (test code = 76389-4) Abnormal [facility] SARS-COV-2 ANTIGEN (BINAX NOW)2022-11-27 01:00:00* Test Item Value Reference Range Interpretation Comme nts POCT SARS-COV-2 ANTIGEN (test code = 90367-8) Positive Not Detected A On board controls acceptable with C Line (test code = 3574) Yes VIVIENNE (test code = VIVIENNE) accurate developme nt and interpretation of all internal controls Lab Interpretation (test code = 89750-5) Abnormal [facility] SARS-COV-2 ANTIGEN (BINAX NOW)2022-11-27 01:00:00* Test Item Value Reference Range Interpretation Comme nts POCT SARS-COV-2 ANTIGEN (test code = 16927-6) Positive Not Detected A On board controls acceptable with C Line (test code = 3574) Yes VIVIENNE (test code = VIVIENNE) accurate developme nt and interpretation of all internal controls Lab Interpretation (test code = 41929-0) Abnormal [facility] SARS-COV-2 ANTIGEN (BINAX NOW)2022-11-27 01:00:00* Test Item Value Reference Range Interpretation Comme nts POCT SARS-COV-2 ANTIGEN (test code = 89900-2) Positive Not Detected A On board controls acceptable with C Line (test code = 3574) Yes VIVIENNE (test code = VIVIENNE) accurate developme nt and interpretation of all internal controls Lab Interpretation (test code = 90762-9) Abnormal [facility] SARS-COV-2 ANTIGEN (BINAX NOW)2022-11-27 01:00:00* Test Item Value Reference Range Interpretation Comme nts POCT SARS-COV-2 ANTIGEN (test code = 99066-9) Positive Not Detected A On board controls acceptable with C Line (test code = 3574) Yes VIVIENNE (test code = VIVIENNE) accurate developme nt and interpretation of all internal controls Lab Interpretation (test code = 96028-7) Abnormal [facility] SARS-COV-2 ANTIGEN (BINAX NOW)2022-11-27 01:00:00* Test Item Value Reference Range Interpretation Comme nts POCT SARS-COV-2 ANTIGEN (test code = 62768-2) Positive Not Detected A On board controls acceptable with C Line (test code = 3574) Yes VIVIENNE (test code = VIVIENNE) accurate developme nt and interpretation of all internal controls Lab Interpretation (test code = 47018-5) Abnormal [facility] SARS-COV-2 ANTIGEN (BINAX NOW)2022-11-27 01:00:00* Test Item Value Reference Range Interpretation Comme nts POCT SARS-COV-2 ANTIGEN (test code = 16517-4) Positive Not Detected A On board controls acceptable with C Line (test code = 3574) Yes VIVIENNE (test code = VIVIENNE) accurate developme nt and interpretation of all internal controls Lab Interpretation (test code = 89526-6) Abnormal [facility] SARS-COV-2 ANTIGEN (BINAX NOW)2022-09-30 00:17:00* Test Item Value Reference Range Interpretation Comme nts POCT SARS-COV-2 ANTIGEN (lorie t code = 34619-6) Not Detected Not Detected On board controls acceptable with C Line (test code = 3574) Yes [facility] SARS-COV-2 ANTIGEN (BINAX NOW)2022-09-30 00:17:00* Test Item Value Reference Range Interpretation Comme nts POCT SARS-COV-2 ANTIGEN (lorie t code = 65046-1) Not Detected Not Detected On board controls acceptable with C Line (test code = 3574) Yes [facility] SARS-COV-2 ANTIGEN (BINAX NOW)2022-09-30 00:17:00* Test Item Value Reference Range Interpretation Comme nts POCT SARS-COV-2 ANTIGEN (lorie t code = 71134-1) Not Detected Not Detected On board controls acceptable with C Line (test code = 3574) Yes [facility] SARS-COV-2 ANTIGEN (BINAX NOW)2022-09-30 00:17:00* Test Item Value Reference Range Interpretation Comme nts POCT SARS-COV-2 ANTIGEN (lorie t code = 82174-1) Not Detected Not Detected On board controls acceptable with C Line (test code = 3574) Yes [facility] SARS-COV-2 ANTIGEN (BINAX NOW)2022-09-30 00:17:00* Test Item Value Reference Range Interpretation Comme nts POCT SARS-COV-2 ANTIGEN (lorie t code = 82840-6) Not Detected Not Detected On board controls acceptable with C Line (test code = 3574) Yes [facility] SARS-COV-2 ANTIGEN (BINAX NOW)2022-09-30 00:17:00* Test Item Value Reference Range Interpretation Comme nts POCT SARS-COV-2 ANTIGEN (lorie t code = 89783-9) Not Detected Not Detected On board controls acceptable with C Line (test code = 3574) Yes [facility] SARS-COV-2 ANTIGEN (BINAX NOW)2022-09-30 00:17:00* Test Item Value Reference Range Interpretation Comme nts POCT SARS-COV-2 ANTIGEN (lorie t code = 61968-9) Not Detected Not Detected On board controls acceptable with C Line (test code = 3574) Yes [facility] SARS-COV-2 ANTIGEN (BINAX NOW)2022-09-30 00:17:00* Test Item Value Reference Range Interpretation Comme nts POCT SARS-COV-2 ANTIGEN (lorie t code = 04432-7) Not Detected Not Detected On board controls acceptable with C Line (test code = 3574) Yes [facility] SARS-COV-2 ANTIGEN (BINAX NOW)2022-09-30 00:17:00* Test Item Value Reference Range Interpretation Comme nts POCT SARS-COV-2 ANTIGEN (lorie t code = 62143-3) Not Detected Not Detected On board controls acceptable with C Line (test code = 3574) Yes [facility] SARS-COV-2 ANTIGEN (BINAX NOW)2022-09-30 00:17:00* Test Item Value Reference Range Interpretation Comme nts POCT SARS-COV-2 ANTIGEN (lorie t code = 82535-0) Not Detected Not Detected On board controls acceptable with C Line (test code = 3574) Yes [facility] SARS-COV-2 ANTIGEN (BINAX NOW)2022-09-30 00:17:00* Test Item Value Reference Range Interpretation Comme nts POCT SARS-COV-2 ANTIGEN (lorie t code = 00328-5) Not Detected Not Detected On board controls acceptable with C Line (test code = 3574) Yes [facility] SARS-COV-2 ANTIGEN (BINAX NOW)2022-09-30 00:17:00* Test Item Value Reference Range Interpretation Comme nts POCT SARS-COV-2 ANTIGEN (lorie t code = 33047-5) Not Detected Not Detected On board controls acceptable with C Line (test code = 3574) Yes [facility] GLUCOSE (AUTOMATED)2022-02-07 15:33:59* Test Item Value Reference Range Interpretation Comme nts POCT GLU (test code = 0415822456) 108 mg/dL 70-110 Lab Interpretation (test cod e = 39537-5) Normal [facility] GLUCOSE (AUTOMATED)2022-02-07 15:33:59* Test Item Value Reference Range Interpretation Comme nts POCT GLU (test code = 2601409226) 108 mg/dL 70-110 Lab Interpretation (test cod e = 84026-7) Normal [facility] GLUCOSE (AUTOMATED)2022-02-07 15:33:59* Test Item Value Reference Range Interpretation Comme nts POCT GLU (test code = 6219289479) 108 mg/dL 70-110 Lab Interpretation (test cod e = 77110-7) Normal [facility] GLUCOSE (AUTOMATED)2022-02-07 15:33:59* Test Item Value Reference Range Interpretation Comme nts POCT GLU (test code = 2127290638) 108 mg/dL 70-110 Lab Interpretation (test cod e = 19348-9) Normal [facility] GLUCOSE (AUTOMATED)2022-02-07 15:33:59* Test Item Value Reference Range Interpretation Comme nts POCT GLU (test code = 2229179401) 108 mg/dL 70-110 Lab Interpretation (test cod e = 82128-5) Normal [facility] GLUCOSE (AUTOMATED)2022-02-07 15:33:59* Test Item Value Reference Range Interpretation Comme nts POCT GLU (test code = 9196072830) 108 mg/dL 70-110 Lab Interpretation (test cod e = 66918-4) Normal [facility] GLUCOSE (AUTOMATED)2022-02-07 15:33:59* Test Item Value Reference Range Interpretation Comme nts POCT GLU (test code = 6452574329) 108 mg/dL 70-110 Lab Interpretation (test cod e = 03226-3) Normal [facility] GLUCOSE (AUTOMATED)2022-02-07 15:33:59* Test Item Value Reference Range Interpretation Comme nts POCT GLU (test code = 3108012243) 108 mg/dL 70-110 Lab Interpretation (test cod e = 75285-2) Normal [facility] URINALYSIS W SPECIFIC [id number] 23:10:00* Test Item Value Reference Range Interpretation Comme nts POCT U SP GRAV (test code = 3255) 1.005 mg/dl 1.005-1.025 POCT PH U (test code = 3254) 5 mg/dl 5-8 POCT U LEUK EST (test code = 3263) 2+ Negative - Negative POCT U NIT (test code = 3262) positive Negative - Negative POCT U PROT (test code = 3259) negative Negative - Negative POCT U GLU (test code = 3256) negative Negative - Negative POCT U KETONE (test code = 3258) negative Negative - Negative POCT U UROBILI (test code = 3260) negative 0.2-1 POCT U BILI (test code = 3261) normal Negative - Negative POCT U BLD (test code = 3257) Negative - Negative POCT U COLOR (test code = 3266) yellow POCT U APPEAR (test code = 3267) cloudy sediment VIVIENNE (test code = VIVIENNE) accurate developme nt and interpretation of all internal controls Lab Interpretation (test code = 05997-7) Abnormal [facility] URINALYSIS W SPECIFIC [id number] 23:10:00* Test Item Value Reference Range Interpretation Comme nts POCT U SP GRAV (test code = 3255) 1.005 mg/dl 1.005-1.025 POCT PH U (test code = 3254) 5 mg/dl 5-8 POCT U LEUK EST (test code = 3263) 2+ Negative - Negative POCT U NIT (test code = 3262) positive Negative - Negative POCT U PROT (test code = 3259) negative Negative - Negative POCT U GLU (test code = 3256) negative Negative - Negative POCT U KETONE (test code = 3258) negative Negative - Negative POCT U UROBILI (test code = 3260) negative 0.2-1 POCT U BILI (test code = 3261) normal Negative - Negative POCT U BLD (test code = 3257) Negative - Negative POCT U COLOR (test code = 3266) yellow POCT U APPEAR (test code = 3267) cloudy sediment VIVIENNE (test code = VIVIENNE) accurate developme nt and interpretation of all internal controls Lab Interpretation (test code = 04162-1) Abnormal [facility] URINALYSIS W SPECIFIC [id number] 23:10:00* Test Item Value Reference Range Interpretation Comme nts POCT U SP GRAV (test code = 3255) 1.005 mg/dl 1.005-1.025 POCT PH U (test code = 3254) 5 mg/dl 5-8 POCT U LEUK EST (test code = 3263) 2+ Negative - Negative POCT U NIT (test code = 3262) positive Negative - Negative POCT U PROT (test code = 3259) negative Negative - Negative POCT U GLU (test code = 3256) negative Negative - Negative POCT U KETONE (test code = 3258) negative Negative - Negative POCT U UROBILI (test code = 3260) negative 0.2-1 POCT U BILI (test code = 3261) normal Negative - Negative POCT U BLD (test code = 3257) Negative - Negative POCT U COLOR (test code = 3266) yellow POCT U APPEAR (test code = 3267) cloudy sediment VIVIENNE (test code = VIVIENNE) accurate developme nt and interpretation of all internal controls Lab Interpretation (test code = 82113-5) Abnormal [facility] URINALYSIS W SPECIFIC [id number] 23:10:00* Test Item Value Reference Range Interpretation Comme nts POCT U SP GRAV (test code = 3255) 1.005 mg/dl 1.005-1.025 POCT PH U (test code = 3254) 5 mg/dl 5-8 POCT U LEUK EST (test code = 3263) 2+ Negative - Negative POCT U NIT (test code = 3262) positive Negative - Negative POCT U PROT (test code = 3259) negative Negative - Negative POCT U GLU (test code = 3256) negative Negative - Negative POCT U KETONE (test code = 3258) negative Negative - Negative POCT U UROBILI (test code = 3260) negative 0.2-1 POCT U BILI (test code = 3261) normal Negative - Negative POCT U BLD (test code = 3257) Negative - Negative POCT U COLOR (test code = 3266) yellow POCT U APPEAR (test code = 3267) cloudy sediment VIVIENNE (test code = VIVIENNE) accurate developme nt and interpretation of all internal controls Lab Interpretation (test code = 67876-8) Abnormal [facility] URINALYSIS W SPECIFIC [id number] 23:10:00* Test Item Value Reference Range Interpretation Comme nts POCT U SP GRAV (test code = 3255) 1.005 mg/dl 1.005-1.025 POCT PH U (test code = 3254) 5 mg/dl 5-8 POCT U LEUK EST (test code = 3263) 2+ Negative - Negative POCT U NIT (test code = 3262) positive Negative - Negative POCT U PROT (test code = 3259) negative Negative - Negative POCT U GLU (test code = 3256) negative Negative - Negative POCT U KETONE (test code = 3258) negative Negative - Negative POCT U UROBILI (test code = 3260) negative 0.2-1 POCT U BILI (test code = 3261) normal Negative - Negative POCT U BLD (test code = 3257) Negative - Negative POCT U COLOR (test code = 3266) yellow POCT U APPEAR (test code = 3267) cloudy sediment VIVIENNE (test code = VIVIENNE) accurate developme nt and interpretation of all internal controls Lab Interpretation (test code = 20952-8) Abnormal [facility] URINALYSIS W SPECIFIC [id number] 23:10:00* Test Item Value Reference Range Interpretation Comme nts POCT U SP GRAV (test code = 3255) 1.005 mg/dl 1.005-1.025 POCT PH U (test code = 3254) 5 mg/dl 5-8 POCT U LEUK EST (test code = 3263) 2+ Negative - Negative POCT U NIT (test code = 3262) positive Negative - Negative POCT U PROT (test code = 3259) negative Negative - Negative POCT U GLU (test code = 3256) negative Negative - Negative POCT U KETONE (test code = 3258) negative Negative - Negative POCT U UROBILI (test code = 3260) negative 0.2-1 POCT U BILI (test code = 3261) normal Negative - Negative POCT U BLD (test code = 3257) Negative - Negative POCT U COLOR (test code = 3266) yellow POCT U APPEAR (test code = 3267) cloudy sediment VIVIENNE (test code = VIVIENNE) accurate developme nt and interpretation of all internal controls Lab Interpretation (test code = 00987-4) Abnormal [facility] URINALYSIS W SPECIFIC [id number] 23:10:00* Test Item Value Reference Range Interpretation Comme nts POCT U SP GRAV (test code = 3255) 1.005 mg/dl 1.005-1.025 POCT PH U (test code = 3254) 5 mg/dl 5-8 POCT U LEUK EST (test code = 3263) 2+ Negative - Negative POCT U NIT (test code = 3262) positive Negative - Negative POCT U PROT (test code = 3259) negative Negative - Negative POCT U GLU (test code = 3256) negative Negative - Negative POCT U KETONE (test code = 3258) negative Negative - Negative POCT U UROBILI (test code = 3260) negative 0.2-1 POCT U BILI (test code = 3261) normal Negative - Negative POCT U BLD (test code = 3257) Negative - Negative POCT U COLOR (test code = 3266) yellow POCT U APPEAR (test code = 3267) cloudy sediment VIVIENNE (test code = VIVIENNE) accurate developme nt and interpretation of all internal controls Lab Interpretation (test code = 48820-5) Abnormal [facility] MOLECULAR [id number] 01:50:16* Test Item Value Reference Range Interpretation Comme nts POCT Molecular Strep (test c ode = 38392-4) Negative Negative Lab Interpretation (test cod e = 29233-7) Normal [facility] MOLECULAR [id number] 01:50:16* Test Item Value Reference Range Interpretation Comme nts POCT Molecular Strep (test c ode = 97215-4) Negative Negative Lab Interpretation (test cod e = 66821-9) [facility] [id number] 02:42:48* Test Item Value Reference Range Interpretation Comme nts PREG SERUM (test code = 5026322586) Negative VIVIENNE (test code = VIVIENNE) Less than 10 IU/L. ?If low titer or ectopic is suspected, resubmit specimen in 48-72 hours. [facility]. METABOLIC PANEL ([id number])2021-12-08 02:11:54* Test Item Value Reference Range Interpretation Comme nts NA (test code = 0134185474) 138 mmol/L 135-145 K (test code = 4394722900) 4.1 mmol/L 3.5-5 CL (test code = 7659705249) 105 mmol/L 98-108 CO2 TOTAL (test code = 8697460022) 25 mmol/L 23-31 AGAP (test code = 6394313378) 2-16 BUN (test code = 1967895966) 7 mg/dL 7-23 GLUCOSE (test code = 6708741227) 113 mg/dL 70-110 H CREATININE (test code = 3758104868) 0.73 mg/dL 0.5-1.04 TOTAL BILI (test code = 1146186252) 0.1 mg/dL 0.1-1.1 CALCIUM (test code = 9951290000) 8.9 mg/dL 8.6-10.6 T PROTEIN (test code = 2087770977) 6.6 g/dL 6.3-8.2 ALBUMIN (test code = 6509695098) 4.4 g/dL 3.5-5 ALK PHOS (test code = 5161299078) 109 U/L 34-122 ALTv (test code = 1742-6) 35 U/L 5-35 AST(SGOT) (test code = 1774265551) 31 U/L 13-40 eGFR (test code = 7836008486) mL/min/1.73m2 VIVIENNE (test code = VIVIENNE) Association of Glomerular Filtration Rate (GFR) and Staging of Kidney Disease* + --+ --+ ------+| GFR (mL/min/1.73 m2) ?| With Kidney Damage ?| ?Without Kidney Damage+ --------+ --------+ +| ?>90 ?| ?Stage one ?| ? Normal ?+ ---+ ---+ -------+| ?60-89 ?| ?Stage two ?| ? Decreased GFR ? + --+ --+ ------+| ?30-59 ?| ?Stage three ?| ? Stage three ? + --+ --+ ------+| ?15-29 ?| ?Stage four ? | ? Stage four ?+ ---+ ---+ -------+| ?<15 (or dialysis) ? ?| ?Stage five ? | ? Stage five ?+ ---+ ---+ -------+ *Each stage assumes the associated GFR level has been in effect for at least three months. ?Stages 1 to 5, with or without kidney disease, indicate chronic kidney disease. Notes: Determination of stages one and two (with eGFR >59mL/min/1.73 m2) requires estimation of kidney damage for at least three months as defined by structural or functional abnormalities of the kidney, manifested by either:Pathological abnormalities or Markers of kidney damage (including abnormalities in the composition of the blood or urine or abnormalities in imaging tests). Lab Interpretation (test code = 18407-9) [facility] METABOLIC PANEL ([id number])2021-12-08 02:11:54* Test Item Value Reference Range Interpretation Comme nts NA (test code = 1277550521) 138 mmol/L 135-145 K (test code = 6513482301) 4.1 mmol/L 3.5-5.0 CL (test code = 0018800420) 105 mmol/L 98-108 CO2 TOTAL (test code = 7090230690) 25 mmol/L 23-31 AGAP (test code = 7932495163) 2-16 BUN (test code = 4718097540) 7 mg/dL 7-23 GLUCOSE (test code = 1976487483) 113 mg/dL 70-110 H CREATININE (test code = 4904948455) 0.73 mg/dL 0.50-1.04 TOTAL BILI (test code = 6762000276) 0.1 mg/dL 0.1-1.1 CALCIUM (test code = 2544481148) 8.9 mg/dL 8.6-10.6 T PROTEIN (test code = 5561015780) 6.6 g/dL 6.3-8.2 ALBUMIN (test code = 2273188521) 4.4 g/dL 3.5-5.0 ALK PHOS (test code = 0078910090) 109 U/L 34-122 ALTv (test code = 1742-6) 35 U/L 5-35 AST(SGOT) (test code = 5213115631) 31 U/L 13-40 eGFR (test code = 6030560038) mL/min/1.73m2 VIVIENNE (test code = VIVIENNE) Association of Glomerular Filtration Rate (GFR) and Staging of Kidney Disease* + --+ --+ ------+| GFR (mL/min/1.73 m2) ?| With Kidney Damage ?| ?Without Kidney Damage+ --------+ --------+ +| ?>90 ?| ?Stage one ?| ? Normal ?+ ---+ ---+ -------+| ?60-89 ?| ?Stage two ?| ? Decreased GFR ? + --+ --+ ------+| ?30-59 ?| ?Stage three ?| ? Stage three ? + --+ --+ ------+| ?15-29 ?| ?Stage four ? | ? Stage four ?+ ---+ ---+ -------+| ?<15 (or dialysis) ? ?| ?Stage five ? | ? Stage five ?+ ---+ ---+ -------+ *Each stage assumes the associated GFR level has been in effect for at least three months. ?Stages 1 to 5, with or without kidney disease, indicate chronic kidney disease. Notes: Determination of stages one and two (with eGFR >59mL/min/1.73 m2) requires estimation of kidney damage for at least three months as defined by structural or functional abnormalities of the kidney, manifested by either:Pathological abnormalities or Markers of kidney damage (including abnormalities in the composition of the blood or urine or abnormalities in imaging tests). Lab Interpretation (test code = 31511-7) [facility] THRMPLAS [id number] 02:10:14* Test Item Value Reference Range Interpretation Comme [facility] APTT Patient (test code = 3173-2) See_Comment [Automated message] The system which generated this result transmitted reference range: 23 - 38 Seconds. The reference range was not used to interpret this result as normal/abnormal. VIVIENNE (test code = VIVIENNE) The [facility] patient population mean normal value for aPTT is 30 seconds. Lab Interpretation (test code = 20352-9) Normal [facility] / [id number] 02:08:13* Test Item Value Reference Range Interpretation Comme [facility] PROTIME PATIENT (test code = 5964-2) See_Comment [Automated messa ge] The system which generated this result transmitted reference range: 12.0 - 14.7 Seconds. The reference range was not used to interpret this result as normal/abnormal. INR (test code = 6301-6) Normal INR <1.1; Warfarin Therapeutic range 2.0 to 3.0 or 2.5 to 3.5, depending upon the indications. Lab Interpretation (test code = 36975-1) Normal [facility] WITH [id number] 02:01:32* Test Item Value Reference Range Interpretation Comme [facility] WBC (test code = 6690-2) See_Comment [Automated messa ge] The system which generated this result transmitted reference range: 4.30 - 11.10 10*3/?L. The reference range was not used to interpret this result as normal/abnormal. RBC (test code = 789-8) See_Comment [Automated messa ge] The system which generated this result transmitted reference range: 3.93 - 5.25 10*6/?L. The reference range was not used to interpret this result as normal/abnormal. HGB (test code = 718-7) 14.0 g/dL 11.6-15 HCT (test code = 4544-3) 41.9 % 35.7-45.2 MCV (test code = 787-2) 88.0 fL 80.6-95.5 MCH (test code = 785-6) 29.4 pg 25.9-32.8 MCHC (test code = 786-4) 33.4 g/dL 31.6-35.1 RDW-SD (test code = 74511-0) 41.1 fL 39-49.9 RDW-CV (test code = 788-0) 12.6 % 12-15.5 PLT (test code = 777-3) See_Comment [Automated messa ge] The system which generated this result transmitted reference range: 166 - 358 10*3/?L. The reference range was not used to interpret this result as normal/abnormal. MPV (test code = 65375-8) 11.3 fL 9.5-12.9 NRBC/100 WBC (test code = 7291425192) See_Comment [Automated Onovative ssage] The system which generated this result transmitted reference range: 0.0 - 10.0 /100 WBCs. The reference range was not used to interpret this result as normal/abnormal. NRBC x10^3 (test code = 0133747278) See_Comment [Automated messa ge] The system which generated this result transmitted reference range: 10*3/?L. The reference range was not used to interpret this result as normal/abnormal. GRAN MAT (NEUT) % (test code = 770-8) 54.2 % IMM GRAN % (test code = 5273922426) 0.30 % LYMPH % (test code = 736-9) 35.9 % MONO % (test code = 5905-5) 7.0 % EOS % (test code = 713-8) 2.1 % BASO % (test code = 706-2) 0.5 % GRAN MAT x10^3(ANC) (test code = 0171423042) 5.63 10*3/uL 1.88-7.09 IMM GRAN x10^3 (test code = 9522740917) 0.03 10*3/uL 0-0.06 LYMPH x10^3 (test code = 731-0) 3.73 10*3/uL 1.32-3.29 H MONO x10^3 (test code = 742-7) 0.73 10*3/uL 0.33-0.92 EOS x10^3 (test code = 711-2) 0.22 10*3/uL 0.03-0.39 BASO x10^3 (test code = 704-7) 0.05 10*3/uL 0.01-0.07 Lab Interpretation (test code = 93138-1) Abnormal [facility] WITH [id number] 02:01:32* Test Item Value Reference Range Interpretation Comme nts WBC (test code = 6690-2) See_Comment [Automated makra ge] The system which generated this result transmitted reference range: 4.30 - 11.10 10*3/?L. The reference range was not used to interpret this result as normal/abnormal. RBC (test code = 789-8) See_Comment [Automated makra ge] The system which generated this result transmitted reference range: 3.93 - 5.25 10*6/?L. The reference range was not used to interpret this result as normal/abnormal. HGB (test code = 718-7) 14.0 g/dL 11.6-15.0 HCT (test code = 4544-3) 41.9 % 35.7-45.2 MCV (test code = 787-2) 88.0 fL 80.6-95.5 MCH (test code = 785-6) 29.4 pg 25.9-32.8 MCHC (test code = 786-4) 33.4 g/dL 31.6-35.1 RDW-SD (test code = 08675-2) 41.1 fL 39.0-49.9 RDW-CV (test code = 788-0) 12.6 % 12.0-15.5 PLT (test code = 777-3) See_Comment [Automated messa ge] The system which generated this result transmitted reference range: 166 - 358 10*3/?L. The reference range was not used to interpret this result as normal/abnormal. MPV (test code = 97735-3) 11.3 fL 9.5-12.9 NRBC/100 WBC (test code = 6142521145) See_Comment [Automated Onovative ssage] The system which generated this result transmitted reference range: 0.0 - 10.0 /100 WBCs. The reference range was not used to interpret this result as normal/abnormal. NRBC x10^3 (test code = 1267092469) See_Comment [Automated messa ge] The system which generated this result transmitted reference range: 10*3/?L. The reference range was not used to interpret this result as normal/abnormal. GRAN MAT (NEUT) % (test code = 770-8) 54.2 % IMM GRAN % (test code = 0622476912) 0.30 % LYMPH % (test code = 736-9) 35.9 % MONO % (test code = 5905-5) 7.0 % EOS % (test code = 713-8) 2.1 % BASO % (test code = 706-2) 0.5 % GRAN MAT x10^3(ANC) (test code = 8314092475) 5.63 10*3/uL 1.88-7.09 IMM GRAN x10^3 (test code = 3216998901) 0.03 10*3/uL 0.00-0.06 LYMPH x10^3 (test code = 731-0) 3.73 10*3/uL 1.32-3.29 H MONO x10^3 (test code = 742-7) 0.73 10*3/uL 0.33-0.92 EOS x10^3 (test code = 711-2) 0.22 10*3/uL 0.03-0.39 BASO x10^3 (test code = 704-7) 0.05 10*3/uL 0.01-0.07 Lab Interpretation (test code = 23687-6) Abnormal [facility] [id number] 01:45:00* Test Item Value Reference Range Interpretation Comme nts POCT PREG (test code = 1605) NEGATIVE On board controls acceptable with C Line (test code = 3574) PRESENT POCT PREG LOT # (test code = 3575) [id number] POCT PREG TEST DATE ( test code = 3576) Lab Interpretation (test cod e = 89870-2) Normal [facility] [id number] 01:45:00* Test Item Value Reference Range Interpretation Comme nts POCT PREG (test code = 1605) NEGATIVE On board controls acceptable with C Line (test code = 3574) PRESENT POCT PREG LOT # (test code = 3575) [id number] POCT PREG TEST DATE ( test code = 3576) Lab Interpretation (test cod e = 40264-1) [facility] ID[facility]XC5205[facility]56-29 22:48:00* Test Item Value Reference Range Interpretation Comme nts HS Troponin I 1 Hr (test cod e = HS Troponin I 1 Hr) no gt HS Troponin I 0 to 1 Hour De lta (test code = HS Troponin I 0 to 1 Hour Delta) no gt [facility] [id number] 21:27:00* Test Item Value Reference Range Interpretation Comme nts HS Troponin I Baseline (test code = HS Troponin I Baseline) no gt [facility]villeRvowoxcMIFXRHCFHD2708-89-17 21:22:00* Test Item Value Reference Range Interpretation Comme nts Coronavirus (COVID-19) MAURA (test code = Coronavirus (COVID-19) MAURA) Not Detected (06/13/21 3:22 PM) [facility] GreenvilleSvamziiOAGQQK2373-55-67 21:22:00* Test Item Value Reference Range Interpretation Comme nts Trig (test code = Trig) 293 Chol (test code = Chol) 195 HDL (test code = HDL) 64 CHD Risk (test code = CHD Risk) 3.05 1 3.90-5.80 LDL (Calculated) (test code = LDL (Calculated)) 72 VLDL (test code = VLDL) 59 1 [facility] QKIQYVZIH6362-92-84 21:22:00* Test Item Value Reference Range Interpretation Comme nts Hgb A1C (test code = Hgb A1C) 5.2 [facility] CenterURINE AND FNRAP8631-41-06 19:54:00* Test Item Value Reference Range Interpretation Comme nts UA Color (test code = UA Color) Light Yellow *NA*(06/13/21 1:54 PM) UA Turbidity (test code = UA Turbidity) Clear (06/13/21 1:54 PM) UA Spec Grav (test code = UA Spec Grav) 1.006 1 UA pH (test code = UA pH) 6.0 1 5.0-8.0 UA Protein (test code = UA Protein) Negative (06/13/21 1:54 PM) UA Glucose (test code = UA Glucose) Negative *NA*(06/13/21 1:54 PM) UA Ketones (test code = UA Ketones) Negative *NA*(06/13/21 1:54 PM) UA Bili (test code = UA Bili) Negative *NA*(06/13/21 1:54 PM) UA Blood (test code = UA Blood) Small *ABN*(06/13/21 1:54 PM) UA Urobilinogen (test code = UA Urobilinogen) <=1.0 mg/dL 0.1-1.0 UA Nitrite (test code = UA Nitrite) Negative (06/13/21 1:54 PM) UA Leuk Est (test code = UA Leuk Est) Negative (06/13/21 1:54 PM) UA Sq Epi (test code = UA Sq Epi) Occasional /LPF UA RBC (test code = UA RBC) 1 <=2 UA Mucus (test code = UA Mucus) Few /LPF [facility] CenterCARDIAC [id number] 17:47:00* Test Item Value Reference Range Interpretation Comme [facility] Total CK (test code = Total CK) 717 12-191 [facility] CenterCHEM [id number] 17:47:00* Test Item Value Reference Range Interpretation Comme nts Glucose Lvl (test code = Glucose Lvl) 108 70-99 BUN (test code = BUN) 11 7-22 Creatinine Lvl (test code = Creatinine Lvl) 0.90 0.50-1.40 Sodium Lvl (test code = Sodium Lvl) 137 135-145 Potassium Lvl (test code = P otassium Lvl) 4.0 3.5-5.1 Chloride Lvl (test code = Chloride Lvl) 105 95-109 CO2 (test code = CO2) 27 24-32 Calcium Lvl (test code = Calcium Lvl) 9.3 8.5-10.5 AGAP (test code = AGAP) 9.0 10.0-20.0 eGFR (test code = eGFR) 80 [facility] CenterUpudaoaZQCCOROSNTOMQ9812-19-77 17:47:00* Test Item Value Reference Range Interpretation Comme nts S Preg (test code = S Preg) Negative *NA*(06/13/21 11:47 AM) [facility] NorthwestTgspcdvRVBSCFQDPH4657-91-43 17:47:00* Test Item Value Reference Range Interpretation Comme [facility] WBC (test code = WBC) 10.5 3.7-10.4 RBC (test code = RBC) 4.63 4.20-5.40 Hgb (test code = Hgb) 13.6 12.0-16.0 Hct (test code = Hct) 40.5 36.0-48.0 MCV (test code = MCV) 87.5 80.0-98.0 MCH (test code = MCH) 29.4 pg 27.0-31.0 MCHC (test code = MCHC) 33.5 32.0-36.0 RDW (test code = RDW) 13.7 11.5-14.5 Platelet (test code = Platelet) 328 133-450 MPV (test code = MPV) 8.4 7.4-10.4 Segs (test code = Segs) 56.8 45.0-75.0 Lymphocytes (test code = Lymphocytes) 34.3 20.0-40.0 Monocytes (test code = Monocytes) 7.0 2.0-12.0 Eosinophils (test code = Eosinophils) 1.3 <=4.0 Basophils (test code = Basophils) 0.6 <=1.0 Neutrophils # (test code = Neutrophils #) 6.0 1.5-8.1 Lymphocytes # (test code = Lymphocytes #) 3.6 1.0-5.5 Monocytes # (test code = Monocytes #) 0.7 <=0.8 Eosinophils # (test code = Eosinophils #) 0.1 <=0.5 Basophils # (test code = Basophils #) 0.1 <=0.2 [facility]2021-05-03 16:41:00* Test Item Value Reference Range Interpretation Comme [facility] Glucose Lvl (test code = Glucose Lvl) 108 70-99 BUN (test code = BUN) 11 7-22 Creatinine Lvl (test code = Creatinine Lvl) 0.86 0.50-1.40 Sodium Lvl (test code = Sodium Lvl) 139 135-145 Potassium Lvl (test code = P otassium Lvl) 3.9 3.5-5.1 Chloride Lvl (test code = Chloride Lvl) 110 95-109 CO2 (test code = CO2) 24 24-32 Calcium Lvl (test code = Calcium Lvl) 8.7 8.5-10.5 AGAP (test code = AGAP) 8.9 10.0-20.0 eGFR (test code = eGFR) 85 [facility] NorthwestSqhlhrsZKOYALQNWW9783-10-02 16:41:00* Test Item Value Reference Range Interpretation Comme nts WBC (test code = WBC) 8.9 3.7-10.4 RBC (test code = RBC) 4.06 4.20-5.40 Hgb (test code = Hgb) 12.2 12.0-16.0 Hct (test code = Hct) 36.1 36.0-48.0 MCV (test code = MCV) 89.1 80.0-98.0 MCH (test code = MCH) 30.1 pg 27.0-31.0 MCHC (test code = MCHC) 33.8 32.0-36.0 RDW (test code = RDW) 13.0 11.5-14.5 Platelet (test code = Platelet) 288 133-450 MPV (test code = MPV) 8.3 7.4-10.4 Sed Rate (test code = Sed Rate) 14 <=20 Segs (test code = Segs) 46.4 45.0-75.0 Lymphocytes (test code = Lymphocytes) 43.3 20.0-40.0 Monocytes (test code = Monocytes) 7.4 2.0-12.0 Eosinophils (test code = Eosinophils) 2.3 <=4.0 Basophils (test code = Basophils) 0.6 <=1.0 Neutrophils # (test code = Neutrophils #) 4.1 1.5-8.1 Lymphocytes # (test code = Lymphocytes #) 3.9 1.0-5.5 Monocytes # (test code = Monocytes #) 0.7 <=0.8 Eosinophils # (test code = Eosinophils #) 0.2 <=0.5 Basophils # (test code = Basophils #) 0.1 <=0.2 [facility] CenterUrlkixpIQBAASNEME4221-78-07 16:41:00* Test Item Value Reference Range Interpretation Comme nts C-REACTIVE PROTEIN (test cod e = C-REACTIVE PROTEIN) 11.6 [facility] CenterDxsoohoBJXQXKFUBJ3815-95-22 17:51:00* Test Item Value Reference Range Interpretation Comme nts Coronavirus (COVID-19) MAURA (test code = Coronavirus (COVID-19) MAURA) Not Detected *NA*(06/16/20 11:51 AM) [facility][U] XRAY KNEE 1 OR 2 VWS LEFT [id number] 15:30:00Images acquired, not reported on this accession number.[place] PhysiciansCHEM PANEL 2020-05-16 21:01:00* Test Item Value Reference Range Interpretation Comme nts Glucose Lvl (test code = Glucose Lvl) 96 70-99 BUN (test code = BUN) 10 7-22 Creatinine Lvl (test code = Creatinine Lvl) 0.76 0.50-1.40 Sodium Lvl (test code = Sodium Lvl) 140 135-145 Potassium Lvl (test code = P otassium Lvl) 4.0 3.5-5.1 Chloride Lvl (test code = Chloride Lvl) 109 95-109 CO2 (test code = CO2) 27 24-32 Calcium Lvl (test code = Calcium Lvl) 8.8 8.5-10.5 AGAP (test code = AGAP) 8.0 10.0-20.0 eGFR (test code = eGFR) 98 [facility] CenterIamsbfkNVQUWSICNM3463-25-36 21:01:00* Test Item Value Reference Range Interpretation Comme nts WBC (test code = WBC) 9.1 3.7-10.4 RBC (test code = RBC) 4.30 4.20-5.40 Hgb (test code = Hgb) 12.3 12.0-16.0 Hct (test code = Hct) 38.1 36.0-48.0 MCV (test code = MCV) 88.7 80.0-98.0 MCH (test code = MCH) 28.7 pg 27.0-31.0 MCHC (test code = MCHC) 32.4 32.0-36.0 RDW (test code = RDW) 13.7 11.5-14.5 Platelet (test code = Platelet) 283 133-450 MPV (test code = MPV) 8.7 7.4-10.4 Segs (test code = Segs) 47.5 45.0-75.0 Lymphocytes (test code = Lymphocytes) 42.0 20.0-40.0 Monocytes (test code = Monocytes) 8.2 2.0-12.0 Eosinophils (test code = Eosinophils) 1.9 <=4.0 Basophils (test code = Basophils) 0.4 <=1.0 Neutrophils # (test code = Neutrophils #) 4.3 1.5-8.1 Lymphocytes # (test code = Lymphocytes #) 3.8 1.0-5.5 Monocytes # (test code = Monocytes #) 0.7 <=0.8 Eosinophils # (test code = Eosinophils #) 0.2 <=0.5 [facility] C[id number] 20:40:00* Test Item Value Reference Range Interpretation Comme nts Coronavirus (COVID-19) MAURA (test code = Coronavirus (COVID-19) MAURA) Not Detected (05/16/20 2:40 PM) [facility][U] XRAY KNEE 3 VWS LEFT [id number] 15:40:00Images acquired, not reported on this accession number.[place] [facility][U] XRAY KNEE 3 VWS RIGHT [id number] 15:40:00Images acquired, not reported on this accession number.[place] PhysiciansMR Knee wo contrast [id number] 19:19:00PROCEDURE INFORMATION:Exam: MR Left Lower Extremity Joint Without Contrast, KneeExam date and time:02/27/2020 7:21 PMAge: 39 years oldClinical indication: Pain in left knee; Additional info: M25.562pain in leftknee/m25.562 pain in left kneeTECHNIQUE:Imaging protocol: MR of the Left lower extremity joint without contrast. Examfocused on the knee.COMPARISON:KNEE WO CONTRAST MRI, LEFT 06/13/2019 5:34 PMFINDINGS:Bones and cartilage: Small area deep fissuring involving the medial patellarfacet. Otherwise the patellofemoral compartment cartilage appear intact. Medialand lateral compartment cartilage are intact. Small joint effusion.Medial meniscus: Mild intrasubstance signal medial meniscus without discretetear.Lateral meniscus: Unremarkable. No tear.Anterior cruciate ligament: Intact. No tear.Posterior cruciate ligament: Intact. No tear.Medial capsule and supporting structures: Unremarkable.No tear.Lateral capsule and supporting structures: Unremarkable. No tear.Extensor mechanism of knee: Quadriceps and patellar tendons intact.Muscles: Unremarkable.Soft tissues: No fluid collections ormass.IMPRESSION:1. Small focus of deep chondral fissuring medial patellar facet.2. No acute ligamentous or meniscal injury.3. Small joint effusionChristopher Rasheed SELLERS On 02/28/2020 12:46:05; [id number]--[place] by: Marcello Iqbal MDDictated Date/time: 02/28/20 12:46Electronically Signed by: Marcello Iqbal 02/28/2012:46FINAL REPORTUT Physicians[U] XRAY KNEE 4 OR MORE VWS BILATERAL [id number] 11:15:00Images acquired, not reported on this accession number.[place] PhysiciansCHEM [id number] 20:45:00* Test Item Value Reference Range Interpretation Comme nts Glucose Lvl (test code = Glucose Lvl) 79 70-99 BUN (test code = BUN) 8 7-22 Creatinine Lvl (test code = Creatinine Lvl) 0.80 0.50-1.40 Sodium Lvl (test code = Sodium Lvl) 140 135-145 Potassium Lvl (test code = P otassium Lvl) 4.2 3.5-5.1 Chloride Lvl (test code = Chloride Lvl) 106 95-109 CO2 (test code = CO2) 26 24-32 Calcium Lvl (test code = Calcium Lvl) 8.9 8.5-10.5 Total Protein (test code = T otal Protein) 7.5 6.4-8.4 Albumin Lvl (test code = Albumin Lvl) 4.0 3.5-5.0 ALT (test code = ALT) 66 <=65 AST (test code = AST) 48 <=37 Alk Phos (test code = Alk Phos) 106 39-136 Bili Total (test code = Bili Total) 0.4 0.2-1.3 AGAP (test code = AGAP) 12.2 10.0-20.0 B/C Ratio (test code = B/C Ratio) 10 1 6-25 Globulin (test code = Globulin) 3.5 2.7-4.2 A/G Ratio (test code = A/G Ratio) 1.1 1 0.7-1.6 eGFR (test code = eGFR) 93 [facility] NorthwestPisputnJZKHVFGDRL6496-21-17 20:45:00* Test Item Value Reference Range Interpretation Comme nts WBC (test code = WBC) 9.8 3.7-10.4 RBC (test code = RBC) 4.32 4.20-5.40 Hgb (test code = Hgb) 12.6 12.0-16.0 Hct (test code = Hct) 38.1 36.0-48.0 MCV (test code = MCV) 88.3 80.0-98.0 MCH (test code = MCH) 29.2 pg 27.0-31.0 MCHC (test code = MCHC) 33.1 32.0-36.0 RDW (test code = RDW) 12.8 11.5-14.5 Platelet (test code = Platelet) 292 133-450 MPV (test code = MPV) 8.4 7.4-10.4 PT (test code = PT) 13.8 s 12.0-14.7 INR (test code = INR) 1.06 1 0.85-1.17 PTT (test code = PTT) 32.2 s 22.9-35.8 Segs (test code = Segs) 47.6 45.0-75.0 Lymphocytes (test code = Lymphocytes) 41.3 20.0-40.0 Monocytes (test code = Monocytes) 8.7 2.0-12.0 Eosinophils (test code = Eosinophils) 1.9 <=4.0 Basophils (test code = Basophils) 0.5 <=1.0 Neutrophils # (test code = Neutrophils #) 4.7 1.5-8.1 Lymphocytes # (test code = Lymphocytes #) 4.1 1.0-5.5 Monocytes # (test code = Monocytes #) 0.9 <=0.8 Eosinophils # (test code = Eosinophils #) 0.2 <=0.5 [facility] CenterTendyivLWGOYBYROK3652-42-46 20:45:00* Test Item Value Reference Range Interpretation Comme nts Coronavirus (COVID-19) MAURA (test code = Coronavirus (COVID-19) MAURA) Not Detected *NA*(12/05/19 3:45 PM) [facility] CenterCARDIAC [id number] 18:51:00* Test Item Value Reference Range Interpretation Comme nts Troponin-I (test code = Troponin-I) no gt <=0.40 [facility] CenterCHEM [id number] 18:51:00* Test Item Value Reference Range Interpretation Comme nts Glucose Lvl (test code = Glucose Lvl) 100 70-99 Creatinine Lvl (test code = Creatinine Lvl) 0.67 0.50-1.40 Sodium Lvl (test code = Sodium Lvl) 141 135-145 Potassium Lvl (test code = P otassium Lvl) 4.1 3.5-5.1 Chloride Lvl (test code = Chloride Lvl) 104 95-109 BUN (test code = BUN) 5 7-22 eGFR (test code = eGFR) 113 AGAP (test code = AGAP) 11.1 10.0-20.0 CO2 (test code = CO2) 30 24-32 Calcium Lvl (test code = Calcium Lvl) 9.0 8.5-10.5 [facility] CenterUklqbrsZLYSNOXMMYLSE3453-17-02 18:51:00* Test Item Value Reference Range Interpretation Comme nts hCG Tot (test code = hCG Tot) 2 [facility] CenterGjrpoixIBJCHSBGIN1260-54-50 18:13:00* Test Item Value Reference Range Interpretation Comme nts Basophils (test code = Basophils) 0.4 <=1.0 Monocytes # (test code = Monocytes #) 0.4 <=0.8 Eosinophils # (test code = Eosinophils #) 0.1 <=0.5 Basophils # (test code = Basophils #) 0.0 <=0.2 Segs-Bands # (test code = Se gs-Bands #) 7.0 1.5-8.1 Lymphocytes # (test code = Lymphocytes #) 2.4 1.0-5.5 Lymphocytes (test code = Lymphocytes) 23.9 20.0-40.0 Monocytes (test code = Monocytes) 4.5 2.0-12.0 Eosinophils (test code = Eosinophils) 0.8 <=4.0 Segs (test code = Segs) 70.4 45.0-75.0 Platelet (test code = Platelet) 340 133-450 MPV (test code = MPV) 9.6 7.4-10.4 Hgb (test code = Hgb) 12.8 12.0-16.0 Hct (test code = Hct) 38.7 36.0-48.0 MCV (test code = MCV) 88.2 80.0-98.0 MCH (test code = MCH) 29.1 pg 27.0-31.0 RBC (test code = RBC) 4.39 4.20-5.40 MCHC (test code = MCHC) 33.0 32.0-36.0 RDW (test code = RDW) 14.0 11.5-14.5 WBC (test code = WBC) 10.0 3.7-10.4 [facility]2016-07-30 01:34:00* Test Item Value Reference Range Interpretation Comme nts UA WBC (test code = UA WBC) 0-2 /HPF UA Sq Epi (test code = UA Sq Epi) Occasional /LPF UA RBC (test code = UA RBC) 0-2 /HPF <=2 UA Leuk Est (test code = UA Leuk Est) Negative (11/02/15 8:34 PM) UA Nitrite (test code = UA Nitrite) Negative (11/02/15 8:34 PM) UA Urobilinogen (test code = UA Urobilinogen) 0.2 0.1-1.0 UA Blood (test code = UA Blood) Negative (11/02/15 8:34 PM) UA pH (test code = UA pH) 6.0 1 5.0-8.0 UA Bili (test code = UA Bili) Negative *NA*(11/02/15 8:34 PM) UA Ketones (test code = UA Ketones) Negative *NA*(11/02/15 8:34 PM) UA Spec Grav (test code = UA Spec Grav) *NA*(11/02/15 8:34 PM) UA Glucose (test code = UA Glucose) Negative (11/02/15 8:34 PM) UA Color (test code = UA Color) Yellow *NA*(11/02/15 8:34 PM) UA Protein (test code = UA Protein) Negative (11/02/15 8:34 PM) UA Turbidity (test code = UA Turbidity) Clear (11/02/15 8:34 PM) [facility] CenterCARD[facility] [id number] 01:00:00* Test Item Value Reference Range Interpretation Comme [facility] Troponin-I (test code = Troponin-I) no gt <=0.40 CK MB (test code = CK MB) 1.2 0.5-3.6 Total CK (test code = Total CK) 82 12-191 CK-MB INDEX (test code = CK-MB INDEX) 1.5 <=2.5 [facility] CenterCHEM [id number] 01:00:00* Test Item Value Reference Range Interpretation Comme nts eGFR (test code = eGFR) 101 Total Protein (test code = T otal Protein) 6.2 6.4-8.4 AGAP (test code = AGAP) 13.2 10.0-20.0 ASPARTATE TRANSAMINASE (test code = ASPARTATE TRANSAMINASE) 26 <=37 B/C Ratio (test code = B/C Ratio) 8 6-25 Globulin (test code = Globulin) 3.1 2.0-4.0 A/G Ratio (test code = A/G Ratio) 1.0 0.7-1.6 Sodium Lvl (test code = Sodium Lvl) 139 135-145 ALANINE AMINOTRANSFERASE (te st code = ALANINE AMINOTRANSFERASE) 47 <=65 Albumin Lvl (test code = Albumin Lvl) 3.1 3.5-5.0 Glucose Lvl (test code = Glucose Lvl) 129 70-99 Creatinine Lvl (test code = Creatinine Lvl) 0.76 0.50-1.40 Alk Phos (test code = Alk Phos) 92 39-136 BUN (test code = BUN) 6 7-22 Chloride Lvl (test code = Chloride Lvl) 104 95-109 CO2 (test code = CO2) 25 24-32 Calcium Lvl (test code = Calcium Lvl) 8.0 8.5-10.5 Bili Total (test code = Bili Total) 0.2 0.2-1.3 Potassium Lvl (test code = P otassium Lvl) 3.2 3.5-5.1 [id number] 01:00:00* Test Item Value Reference Range Interpretation Comme nts S Preg (test code = S Preg) Negative *NA*(11/02/15 8:00 PM) [facility] [id number] 01:00:00* Test Item Value Reference Range Interpretation Comme nts RBC X 10x6 (test code = RBC X 10x6) 3.57 4.20-5.40 Hgb (test code = Hgb) 10.6 12.0-16.0 WBC X 10x3 (test code = WBC X 10x3) 10.5 3.7-10.4 MCV (test code = MCV) 90.2 80.0-98.0 MCH (test code = MCH) 29.8 pg 27.0-31.0 Hct (test code = Hct) 32.2 36.0-48.0 MPV (test code = MPV) 9.4 7.4-10.4 Platelet (test code = Platelet) 260 133-450 MCHC (test code = MCHC) 33.0 32.0-36.0 RDW (test code = RDW) 13.1 11.5-14.5 D-Dimer (test code = D-Dimer) 0.27 Basophils # (test code = Basophils #) 0.1 <=0.2 Eosinophils # (test code = Eosinophils #) 0.2 <=0.5 Lymphocytes # (test code = Lymphocytes #) 5.1 1.0-5.5 Monocytes # (test code = Monocytes #) 0.9 <=0.8 Segs-Bands # (test code = Se gs-Bands #) 4.2 1.5-8.1 Eosinophils (test code = Eosinophils) 1.8 <=4.0 Monocytes (test code = Monocytes) 8.6 2.0-12.0 Lymphocytes (test code = Lymphocytes) 48.6 20.0-40.0 Segs (test code = Segs) 40.2 45.0-75.0 Basophils (test code = Basophils) 0.8 <=1.0 [facility] CenterCHEM [id number] 22:41:00* Test Item Value Reference Range Interpretation Comme nts Globulin (test code = Globulin) 3.3 2.0-4.0 A/G Ratio (test code = A/G Ratio) 1.1 0.7-1.6 B/C Ratio (test code = B/C Ratio) 15 6-25 AGAP (test code = AGAP) 12.1 10.0-20.0 eGFR (test code = eGFR) 95 ALT (test code = ALT) 36 <=65 Albumin Lvl (test code = Albumin Lvl) 3.5 3.5-5.0 AST (test code = AST) 20 <=37 Calcium Lvl (test code = Calcium Lvl) 8.9 8.5-10.5 Total Protein (test code = T otal Protein) 6.8 6.4-8.4 Alk Phos (test code = Alk Phos) 97 39-136 Bili Total (test code = Bili Total) 0.2 0.2-1.3 Potassium Lvl (test code = P otassium Lvl) 4.1 3.5-5.1 CO2 (test code = CO2) 28 24-32 Chloride Lvl (test code = Chloride Lvl) 103 95-109 BUN (test code = BUN) 12 7-22 Sodium Lvl (test code = Sodium Lvl) 139 135-145 Creatinine Lvl (test code = Creatinine Lvl) 0.80 0.50-1.40 Glucose Lvl (test code = Glucose Lvl) 120 70-99 [id number] 22:41:00* Test Item Value Reference Range Interpretation Comme nts MCV (test code = MCV) 89.2 80.0-98.0 MCH (test code = MCH) 29.7 pg 27.0-31.0 MCHC (test code = MCHC) 33.2 32.0-36.0 Hgb (test code = Hgb) 12.1 12.0-16.0 Hct (test code = Hct) 36.5 36.0-48.0 MPV (test code = MPV) 8.2 7.4-10.4 Platelet (test code = Platelet) 319 133-450 RDW (test code = RDW) 13.9 11.5-14.5 RBC (test code = RBC) 4.09 4.20-5.40 WBC (test code = WBC) 9.1 3.7-10.4 Segs (test code = Segs) 46.8 45.0-75.0 Lymphocytes (test code = Lymphocytes) 41.2 20.0-40.0 Monocytes (test code = Monocytes) 9.1 2.0-12.0 Eosinophils (test code = Eosinophils) 1.6 <=4.0 Lymphocytes # (test code = Lymphocytes #) 3.7 1.0-5.5 Monocytes # (test code = Monocytes #) 0.8 <=0.8 Eosinophils # (test code = Eosinophils #) 0.1 <=0.5 Basophils # (test code = Basophils #) 0.1 <=0.2 Segs-Bands # (test code = Se gs-Bands #) 4.2 1.5-8.1 Basophils (test code = Basophils) 1.3 <=1.0 [facility] [id number] 07:45:00* Test Item Value Reference Range Interpretation Comme nts eGFR (test code = eGFR) 95 Glucose Lvl (test code = Glucose Lvl) 150 70-99 Creatinine Lvl (test code = Creatinine Lvl) 0.81 0.50-1.40 BUN (test code = BUN) 13 7-22 Sodium Lvl (test code = Sodium Lvl) 140 135-145 Chloride Lvl (test code = Chloride Lvl) 104 95-109 CO2 (test code = CO2) 28 24-32 Potassium Lvl (test code = P otassium Lvl) 4.0 3.5-5.1 AGAP (test code = AGAP) 12.0 10.0-20.0 Calcium Lvl (test code = Calcium Lvl) 9.0 8.5-10.5 B/C Ratio (test code = B/C Ratio) 16 6-25 Total Protein (test code = T otal Protein) 7.1 6.4-8.4 Globulin (test code = Globulin) 3.8 2.0-4.0 A/G Ratio (test code = A/G Ratio) 0.9 0.7-1.6 Albumin Lvl (test code = Albumin Lvl) 3.3 3.5-5.0 Alk Phos (test code = Alk Phos) 88 39-136 AST (test code = AST) 25 <=37 ALT (test code = ALT) 47 <=65 Bili Total (test code = Bili Total) 0.2 0.2-1.3 [id number] 07:45:00* Test Item Value Reference Range Interpretation Comme nts RDW (test code = RDW) 14.1 11.5-14.5 Platelet (test code = Platelet) 314 133-450 MCHC (test code = MCHC) 32.7 32.0-36.0 MCH (test code = MCH) 29.4 pg 27.0-31.0 MPV (test code = MPV) 8.8 7.4-10.4 MCV (test code = MCV) 89.9 80.0-98.0 Hgb (test code = Hgb) 11.7 12.0-16.0 Hct (test code = Hct) 35.7 36.0-48.0 RBC (test code = RBC) 3.97 4.20-5.40 WBC (test code = WBC) 19.8 3.7-10.4 Segs (test code = Segs) 84.9 45.0-75.0 Monocytes # (test code = Monocytes #) 0.9 <=0.8 Lymphocytes # (test code = Lymphocytes #) 2.1 1.0-5.5 Lymphocytes (test code = Lymphocytes) 10.6 20.0-40.0 Segs-Bands # (test code = Se gs-Bands #) 16.8 1.5-8.1 Monocytes (test code = Monocytes) 4.5 2.0-12.0 [facility] [id number] 07:56:00* Test Item Value Reference Range Interpretation Comme nts A/G Ratio (test code = A/G Ratio) 0.8 0.7-1.6 AGAP (test code = AGAP) 13.7 10.0-20.0 B/C Ratio (test code = B/C Ratio) 11 6-25 Globulin (test code = Globulin) 4.3 2.0-4.0 eGFR (test code = eGFR) 101 AST (test code = AST) 22 <=37 Alk Phos (test code = Alk Phos) 95 39-136 Bili Total (test code = Bili Total) 0.5 0.2-1.3 Albumin Lvl (test code = Albumin Lvl) 3.6 3.5-5.0 ALT (test code = ALT) 36 <=65 Total Protein (test code = T otal Protein) 7.9 6.4-8.4 Chloride Lvl (test code = Chloride Lvl) 103 95-109 CO2 (test code = CO2) 26 24-32 Calcium Lvl (test code = Calcium Lvl) 9.6 8.5-10.5 Sodium Lvl (test code = Sodium Lvl) 138 135-145 Potassium Lvl (test code = P otassium Lvl) 4.7 3.5-5.1 Creatinine Lvl (test code = Creatinine Lvl) 0.76 0.50-1.40 BUN (test code = BUN) 8 7-22 Glucose Lvl (test code = Glucose Lvl) 137 70-99 [id number] 07:56:00* Test Item Value Reference Range Interpretation Comme nts MPV (test code = MPV) 9.2 7.4-10.4 RDW (test code = RDW) 14.8 11.5-14.5 Platelet (test code = Platelet) 300 133-450 MCV (test code = MCV) 90.4 80.0-98.0 MCH (test code = MCH) 29.9 pg 27.0-31.0 MCHC (test code = MCHC) 33.1 32.0-36.0 RBC (test code = RBC) 3.93 4.20-5.40 WBC (test code = WBC) 16.9 3.7-10.4 Hct (test code = Hct) 35.5 36.0-48.0 Hgb (test code = Hgb) 11.7 12.0-16.0 Lymphocytes # (test code = Lymphocytes #) 1.7 1.0-5.5 Monocytes # (test code = Monocytes #) 0.2 <=0.8 Basophils (test code = Basophils) 0.1 <=1.0 Segs-Bands # (test code = Se gs-Bands #) 15.0 1.5-8.1 Lymphocytes (test code = Lymphocytes) 9.9 20.0-40.0 Monocytes (test code = Monocytes) 1.4 2.0-12.0 Segs (test code = Segs) 88.6 45.0-75.0 [facility] [id number] 07:59:00* Test Item Value Reference Range Interpretation Comme nts Ferritin Lvl (test code = Ferritin Lvl) 76 5-204 TIBC (test code = TIBC) 401 228-428 Iron (test code = Iron) 18 30-160 % Satur Fe (test code = % Satur Fe) 4 12-57 UIBC (test code = UIBC) 383 110-370 [facility] [id number] 07:59:00* Test Item Value Reference Range Interpretation Comme nts Bili Direct (test code = Bili Direct) 0.1 <=0.3 eGFR (test code = eGFR) 83 AST (test code = AST) 20 <=37 ALT (test code = ALT) 38 <=65 Alk Phos (test code = Alk Phos) 106 39-136 Globulin (test code = Globulin) 4.0 2.0-4.0 A/G Ratio (test code = A/G Ratio) 0.9 0.7-1.6 B/C Ratio (test code = B/C Ratio) 10 6-25 Total Protein (test code = T otal Protein) 7.5 6.4-8.4 Albumin Lvl (test code = Albumin Lvl) 3.5 3.5-5.0 Calcium Lvl (test code = Calcium Lvl) 9.3 8.5-10.5 Chloride Lvl (test code = Chloride Lvl) 104 95-109 CO2 (test code = CO2) 27 24-32 AGAP (test code = AGAP) 11.5 10.0-20.0 Sodium Lvl (test code = Sodium Lvl) 138 135-145 Creatinine Lvl (test code = Creatinine Lvl) 0.90 0.50-1.40 Potassium Lvl (test code = P otassium Lvl) 4.5 3.5-5.1 Glucose Lvl (test code = Glucose Lvl) 133 70-99 BUN (test code = BUN) 9 7-22 Bili Total (test code = Bili Total) 0.4 0.2-1.3 [facility] [id number] 07:59:00* Test Item Value Reference Range Interpretation Comme nts Segs (test code = Segs) 84.2 45.0-75.0 Monocytes (test code = Monocytes) 4.4 2.0-12.0 Lymphocytes (test code = Lymphocytes) 11.2 20.0-40.0 Monocytes # (test code = Monocytes #) 0.5 <=0.8 Lymphocytes # (test code = Lymphocytes #) 1.4 1.0-5.5 Segs-Bands # (test code = Se gs-Bands #) 10.6 1.5-8.1 Basophils (test code = Basophils) 0.2 <=1.0 PTT (test code = PTT) 27.0 s 22.9-35.8 PT (test code = PT) 14.0 s 12.0-14.7 INR (test code = INR) 1.05 0.85-1.17 Retic Auto (test code = Retic Auto) 1.0 0.5-1.5 MCH (test code = MCH) 29.6 pg 27.0-31.0 MCV (test code = MCV) 89.7 80.0-98.0 RDW (test code = RDW) 14.1 11.5-14.5 MCHC (test code = MCHC) 33.0 32.0-36.0 Platelet (test code = Platelet) 284 133-450 MPV (test code = MPV) 8.5 7.4-10.4 WBC (test code = WBC) 12.6 3.7-10.4 Hgb (test code = Hgb) 11.5 12.0-16.0 RBC (test code = RBC) 3.89 4.20-5.40 Hct (test code = Hct) 34.9 36.0-48.0 [facility] [id number] 07:59:00* Test Item Value Reference Range Interpretation Comme nts Prealbumin (test code = Prealbumin) 25.3 18.0-45.0 [facility] [id number] 07:59:00* Test Item Value Reference Range Interpretation Comme nts Hgb A1C (test code = Hgb A1C) 4.7 [facility] AND [id number] 05:41:00* Test Item Value Reference Range Interpretation Comme nts UA Leuk Est (test code = UA Leuk Est) Negative (07/17/15 12:41 AM) UA Nitrite (test code = UA Nitrite) Negative (07/17/15 12:41 AM) UA Urobilinogen (test code = UA Urobilinogen) 0.2 0.1-1.0 UA Bili (test code = UA Bili) Negative *NA*(07/17/15 12:41 AM) UA Blood (test code = UA Blood) Small *ABN*(07/17/15 12:41 AM) UA Protein (test code = UA Protein) Negative (07/17/15 12:41 AM) UA Ketones (test code = UA Ketones) Negative *NA*(07/17/15 12:41 AM) UA Glucose (test code = UA Glucose) 100 mg/dL UA Color (test code = UA Color) STRAW UA Turbidity (test code = UA Turbidity) Clear (07/17/15 12:41 AM) UA Spec Grav (test code = UA Spec Grav) *NA*(07/17/15 12:41 AM) UA pH (test code = UA pH) 5.5 1 5.0-8.0 UA Bacteria (test code = UA Bacteria) Occasional /HPF UA RBC (test code = UA RBC) 0-2 /HPF <=2 UA WBC (test code = UA WBC) 0-2 /HPF UA Sq Epi (test code = UA Sq Epi) Few /LPF [facility] CenterBACTERIAL - [id number] 04:44:00* Test Item Value Reference Range Interpretation Comme nts MRSA by PCR (test code = MRSA by PCR) Negative (07/16/15 11:44 PM) [facility] AND [id number] 01:33:00* Test Item Value Reference Range Interpretation Comme nts UA Leuk Est (test code = UA Leuk Est) Negative (07/16/15 8:33 PM) UA Urobilinogen (test code = UA Urobilinogen) 0.2 0.1-1.0 UA Blood (test code = UA Blood) Trace *ABN*(07/16/15 8:33 PM) UA Nitrite (test code = UA Nitrite) Negative (07/16/15 8:33 PM) UA Bili (test code = UA Bili) Negative *NA*(07/16/15 8:33 PM) UA Turbidity (test code = UA Turbidity) Clear (07/16/15 8:33 PM) UA Spec Grav (test code = UA Spec Grav) 1.010 1 UA pH (test code = UA pH) 6.0 1 5.0-8.0 UA Protein (test code = UA Protein) Negative (07/16/15 8:33 PM) UA Glucose (test code = UA Glucose) >=1000 mg/dL UA Ketones (test code = UA Ketones) Trace *ABN*(07/16/15 8:33 PM) UA Color (test code = UA Color) Yellow *NA*(07/16/15 8:33 PM) UA Sq Epi (test code = UA Sq Epi) Moderate /LPF UA RBC (test code = UA RBC) 0-2 /HPF <=2 UA Bacteria (test code = UA Bacteria) Few /HPF UA WBC (test code = UA WBC) 0-2 /HPF [facility] [id number] 23:02:00* Test Item Value Reference Range Interpretation Comme nts Basophils (test code = Basophils) 0.2 <=1.0 Eosinophils (test code = Eosinophils) 0.2 <=4.0 [facility] CenterBACTERIAL - [id number] 16:42:00* Test Item Value Reference Range Interpretation Comme nts MRSA by PCR (test code = MRSA by PCR) Negative (06/07/15 10:42 AM) [id number] 16:42:00* Test Item Value Reference Range Interpretation Comme nts AGAP (test code = AGAP) 13.2 10.0-20.0 B/C Ratio (test code = B/C Ratio) 12 6-25 Globulin (test code = Globulin) 3.7 2.0-4.0 A/G Ratio (test code = A/G Ratio) 1.0 0.7-1.6 eGFR (test code = eGFR) 98 Glucose Lvl (test code = Glucose Lvl) 86 70-99 BUN (test code = BUN) 9 7-22 Calcium Lvl (test code = Calcium Lvl) 8.8 8.5-10.5 Total Protein (test code = T otal Protein) 7.5 6.4-8.4 Bili Total (test code = Bili Total) 0.5 0.2-1.3 Chloride Lvl (test code = Chloride Lvl) 106 95-109 Albumin Lvl (test code = Albumin Lvl) 3.8 3.5-5.0 ALT (test code = ALT) 38 <=65 Creatinine Lvl (test code = Creatinine Lvl) 0.78 0.50-1.40 Sodium Lvl (test code = Sodium Lvl) 141 135-145 CO2 (test code = CO2) 26 24-32 Potassium Lvl (test code = P otassium Lvl) 4.2 3.5-5.1 AST (test code = AST) 19 <=37 Alk Phos (test code = Alk Phos) 91 39-136 [facility] No[id number] 16:42:00* Test Item Value Reference Range Interpretation Comme nts PT (test code = PT) 14.2 s 12.0-14.7 PTT (test code = PTT) 30.5 s 22.9-35.8 INR (test code = INR) 1.07 0.85-1.17 Eosinophils # (test code = Eosinophils #) 0.1 <=0.5 Basophils (test code = Basophils) 0.6 <=1.0 Eosinophils (test code = Eosinophils) 1.8 <=4.0 Lymphocytes # (test code = Lymphocytes #) 2.9 1.0-5.5 Segs-Bands # (test code = Se gs-Bands #) 4.6 1.5-8.1 Monocytes # (test code = Monocytes #) 0.7 <=0.8 Lymphocytes (test code = Lymphocytes) 34.7 20.0-40.0 Segs (test code = Segs) 54.7 45.0-75.0 Monocytes (test code = Monocytes) 8.2 2.0-12.0 MPV (test code = MPV) 8.9 7.4-10.4 RBC (test code = RBC) 4.19 4.20-5.40 WBC (test code = WBC) 8.4 3.7-10.4 Hgb (test code = Hgb) 12.3 12.0-16.0 MCHC (test code = MCHC) 32.4 32.0-36.0 RDW (test code = RDW) 13.3 11.5-14.5 MCV (test code = MCV) 90.7 80.0-98.0 MCH (test code = MCH) 29.4 pg 27.0-31.0 Hct (test code = Hct) 38.0 36.0-48.0 Platelet (test code = Platelet) 284 133-450 [facility] AND [id number] 16:42:00* Test Item Value Reference Range Interpretation Comme nts UA Mucus (test code = UA Mucus) None Seen (06/07/15 10:42 AM) UA Bacteria (test code = UA Bacteria) Occasional /HPF UA Blood (test code = UA Blood) Trace *ABN*(06/07/15 10:42 AM) UA Bili (test code = UA Bili) Negative *NA*(06/07/15 10:42 AM) UA Nitrite (test code = UA Nitrite) Negative (06/07/15 10:42 AM) UA Urobilinogen (test code = UA Urobilinogen) 0.2 0.1-1.0 UA Ketones (test code = UA Ketones) Negative *NA*(06/07/15 10:42 AM) UA WBC (test code = UA WBC) 0-2 /HPF UA Sq Epi (test code = UA Sq Epi) Rare /LPF UA RBC (test code = UA RBC) 0-2 /HPF <=2 Micro? (test code = Micro?) Performed (06/07/15 10:42 AM) UA Leuk Est (test code = UA Leuk Est) Negative (06/07/15 10:42 AM) UA Protein (test code = UA Protein) Negative (06/07/15 10:42 AM) UA Glucose (test code = UA Glucose) Negative (06/07/15 10:42 AM) UA pH (test code = UA pH) 6.0 1 5.0-8.0 UA Color (test code = UA Color) Yellow *NA*(06/07/15 10:42 AM) UA Spec Grav (test code = UA Spec Grav) 1.010 1 UA Turbidity (test code = UA Turbidity) Clear (06/07/15 10:42 AM) [facility] Green[id number] 02:25:00* Test Item Value Reference Range Interpretation Comme nts Potassium Lvl (test code = P otassium Lvl) 4.1 3.5-5.1 CO2 (test code = CO2) 30 24-32 Chloride Lvl (test code = Chloride Lvl) 106 95-109 Calcium Lvl (test code = Calcium Lvl) 8.7 8.5-10.5 Glucose Lvl (test code = Glucose Lvl) 88 70-99 BUN (test code = BUN) 7 7-22 Sodium Lvl (test code = Sodium Lvl) 142 135-145 eGFR (test code = eGFR) 102 Creatinine Lvl (test code = Creatinine Lvl) 0.76 0.50-1.40 AGAP (test code = AGAP) 10.1 10.0-20.0 [facility] CenterChbxculAMOUPITCBHIQS2291-07-21 02:25:00* Test Item Value Reference Range Interpretation Comme nts S Preg (test code = S Preg) Negative *NA*(05/24/15 8:25 PM) [facility] CenterNkzoudzASTCWUBBBE1898-42-25 02:25:00* Test Item Value Reference Range Interpretation Comme [facility] Basophils (test code = Basophils) 0.3 <=1.0 Eosinophils (test code = Eosinophils) 1.5 <=4.0 Monocytes (test code = Monocytes) 8.2 2.0-12.0 Segs-Bands # (test code = Se gs-Bands #) 5.1 1.5-8.1 Lymphocytes (test code = Lymphocytes) 39.1 20.0-40.0 Segs (test code = Segs) 50.9 45.0-75.0 Monocytes # (test code = Monocytes #) 0.8 <=0.8 Eosinophils # (test code = Eosinophils #) 0.1 <=0.5 Lymphocytes # (test code = Lymphocytes #) 3.9 1.0-5.5 MCHC (test code = MCHC) 33.5 32.0-36.0 MCV (test code = MCV) 87.1 80.0-98.0 RDW (test code = RDW) 12.4 11.5-14.5 Platelet (test code = Platelet) 310 133-450 MPV (test code = MPV) 8.4 7.4-10.4 Hgb (test code = Hgb) 11.6 12.0-16.0 RBC (test code = RBC) 3.97 4.20-5.40 WBC (test code = WBC) 9.9 3.7-10.4 MCH (test code = MCH) 29.1 pg 27.0-31.0 Hct (test code = Hct) 34.6 36.0-48.0 [id number] 14:50:00* Test Item Value Reference Range Interpretation Comme nts AGAP (test code = AGAP) 5.9 10.0-20.0 Glucose Lvl (test code = Glucose Lvl) 82 70-99 BUN (test code = BUN) 6 7-22 CO2 (test code = CO2) 32 24-32 eGFR (test code = eGFR) 96 Calcium Lvl (test code = Calcium Lvl) 8.8 8.5-10.5 Chloride Lvl (test code = Chloride Lvl) 106 95-109 Creatinine Lvl (test code = Creatinine Lvl) 0.8 0.5-1.4 Potassium Lvl (test code = P otassium Lvl) 3.9 3.5-5.1 Sodium Lvl (test code = Sodium Lvl) 140 135-145 [facility]CsourbyLEFHPDAHQT5658-76-11 14:50:00* Test Item Value Reference Range Interpretation Comme nts Basophils (test code = Basophils) 0.3 <=1.0 Eosinophils (test code = Eosinophils) 1.2 <=4.0 Monocytes (test code = Monocytes) 8.4 2.0-12.0 Lymphocytes (test code = Lymphocytes) 20.6 20.0-40.0 Eosinophils # (test code = Eosinophils #) 0.1 <=0.5 Monocytes # (test code = Monocytes #) 0.7 <=0.8 Lymphocytes # (test code = Lymphocytes #) 1.8 1.0-5.5 Segs-Bands # (test code = Se gs-Bands #) 6.1 1.5-8.1 Basophils # (test code = Basophils #) 0.0 <=0.2 Segs (test code = Segs) 69.5 45.0-75.0 MPV (test code = MPV) 8.8 7.4-10.4 Platelet (test code = Platelet) 296 133-450 RDW (test code = RDW) 13.3 11.5-14.5 Hct (test code = Hct) 40.4 36.0-48.0 MCV (test code = MCV) 90.5 80.0-98.0 MCH (test code = MCH) 29.9 pg 27.0-31.0 Hgb (test code = Hgb) 13.4 12.0-16.0 RBC (test code = RBC) 4.47 4.20-5.40 MCHC (test code = MCHC) 33.0 32.0-36.0 WBC (test code = WBC) 8.8 3.7-10.4 [facility] CenterTHYROID [id number] 14:50:00* Test Item Value Reference Range Interpretation Comme nts TSH (test code = TSH) 0.704 0.360-3.740 [facility] Greenville[id number] 09:36:00* Test Item Value Reference Range Interpretation Comme nts AGAP (test code = AGAP) 12.1 10.0-20.0 BUN (test code = BUN) 4 7-22 Glucose Lvl (test code = Glucose Lvl) 111 70-99 Sodium Lvl (test code = Sodium Lvl) 142 135-145 Potassium Lvl (test code = P otassium Lvl) 3.1 3.5-5.1 Chloride Lvl (test code = Chloride Lvl) 111 95-109 CO2 (test code = CO2) 22 24-32 eGFR (test code = eGFR) 84 Creatinine Lvl (test code = Creatinine Lvl) 0.9 0.5-1.4 Calcium Lvl (test code = Calcium Lvl) 7.9 8.5-10.5 [facility] C[id number] 09:36:00* Test Item Value Reference Range Interpretation Comme nts WBC (test code = WBC) 7.4 3.7-10.4 RBC (test code = RBC) 3.51 4.20-5.40 MCHC (test code = MCHC) 32.6 32.0-36.0 RDW (test code = RDW) 12.6 11.5-14.5 Platelet (test code = Platelet) 267 133-450 MPV (test code = MPV) 8.9 7.4-10.4 Hct (test code = Hct) 32.0 36.0-48.0 MCV (test code = MCV) 91.1 80.0-98.0 Hgb (test code = Hgb) 10.4 12.0-16.0 MCH (test code = MCH) 29.7 pg 27.0-31.0 Eosinophils # (test code = Eosinophils #) 0.1 <=0.5 Monocytes # (test code = Monocytes #) 0.6 <=0.8 Lymphocytes # (test code = Lymphocytes #) 2.9 1.0-5.5 Basophils # (test code = Basophils #) 0.0 <=0.2 Lymphocytes (test code = Lymphocytes) 39.7 20.0-40.0 Monocytes (test code = Monocytes) 8.3 2.0-12.0 Segs (test code = Segs) 50.2 45.0-75.0 Segs-Bands # (test code = Se gs-Bands #) 3.7 1.5-8.1 Basophils (test code = Basophils) 0.4 <=1.0 Eosinophils (test code = Eosinophils) 1.4 <=4.0 [facility] AND [id number] 23:05:00* Test Item Value Reference Range Interpretation Comme nts UA Trans Epi (test code = UA Trans Epi) OCC UA Urobilinogen (test code = UA Urobilinogen) <=1.0 mg/dL 0.1-1.0 UA Bacteria (test code = UA Bacteria) Many /HPF UA Mucus (test code = UA Mucus) Many /LPF UA Bili (test code = UA Bili) Negative *NA*(06/28/14 6:05 PM) UA Protein (test code = UA Protein) 30 mg/dL UA Glucose (test code = UA Glucose) Negative mg/dL UA pH (test code = UA pH) 6.0 5.0-8.0 UA Ketones (test code = UA Ketones) Negative mg/dL UA Spec Grav (test code = UA Spec Grav) 1.016 UA Color (test code = UA Color) Yellow *NA*(06/28/14 6:05 PM) UA Turbidity (test code = UA Turbidity) Slight *ABN*(06/28/14 6:05 PM) UA Nitrite (test code = UA Nitrite) Negative (06/28/14 6:05 PM) UA WBC (test code = UA WBC) 22 <=5 UA Leuk Est (test code = UA Leuk Est) Large *ABN*(06/28/14 6:05 PM) UA RBC (test code = UA RBC) 3 <=2 UA Blood (test code = UA Blood) Negative (06/28/14 6:05 PM) UA Sq Epi (test code = UA Sq Epi) [place] [facility]2015-03-25 23:00:00* Test Item Value Reference Range Interpretation Comme nts Eosinophils (test code = Eosinophils) 1.2 <=4.0 Monocytes (test code = Monocytes) 8.3 2.0-12.0 Segs-Bands # (test code = Se gs-Bands #) 5.6 1.5-8.1 Lymphocytes # (test code = Lymphocytes #) 4.0 1.0-5.5 Monocytes # (test code = Monocytes #) 0.9 <=0.8 Basophils (test code = Basophils) 0.4 <=1.0 Eosinophils # (test code = Eosinophils #) 0.1 <=0.5 Segs (test code = Segs) 52.6 45.0-75.0 Lymphocytes (test code = Lymphocytes) 37.5 20.0-40.0 PTT (test code = PTT) 32.0 s 22.9-35.8 PT (test code = PT) 14.1 s 12.0-14.7 INR (test code = INR) 1.08 0.85-1.17 MPV (test code = MPV) 8.2 7.4-10.4 MCHC (test code = MCHC) 34.4 32.0-36.0 Hct (test code = Hct) 40.0 36.0-48.0 MCV (test code = MCV) 90.6 80.0-98.0 MCH (test code = MCH) 31.2 pg 27.0-31.0 Platelet (test code = Platelet) 338 133-450 RDW (test code = RDW) 12.9 11.5-14.5 Hgb (test code = Hgb) 13.8 12.0-16.0 WBC (test code = WBC) 10.6 3.7-10.4 RBC (test code = RBC) 4.41 4.20-5.40 [id number] 20:45:00* Test Item Value Reference Range Interpretation Comme [facility] AST (test code = AST) 25 <=37 eGFR (test code = eGFR) 96 Creatinine Lvl (test code = Creatinine Lvl) 0.8 0.5-1.4 Total Protein (test code = T otal Protein) 7.6 6.4-8.4 Globulin (test code = Globulin) 3.6 2.0-4.0 A/G Ratio (test code = A/G Ratio) 1.1 0.7-1.6 Calcium Lvl (test code = Calcium Lvl) 8.8 8.5-10.5 Potassium Lvl (test code = P otassium Lvl) 4.4 3.5-5.1 Chloride Lvl (test code = Chloride Lvl) 110 95-109 Sodium Lvl (test code = Sodium Lvl) 137 135-145 ALT (test code = ALT) 20 <=65 B/C Ratio (test code = B/C Ratio) 9 6-25 BUN (test code = BUN) 7 7-22 AGAP (test code = AGAP) 11.4 10.0-20.0 CO2 (test code = CO2) 20 24-32 Glucose Lvl (test code = Glucose Lvl) 89 70-99 Albumin Lvl (test code = Albumin Lvl) 4.0 3.5-5.0 Bili Total (test code = Bili Total) 0.3 0.2-1.3 Alk Phos (test code = Alk Phos) 90 39-136 Amylase Lvl (test code = Amylase Lvl) 32 25-115 Lipase Lvl (test code = Lipase Lvl) 70 73-393 [facility] [id number] 20:45:00* Test Item Value Reference Range Interpretation Comme [facility] S Preg (test code = S Preg) Negative *NA*(06/28/14 3:45 PM) [facility] CenterCARD[facility]AC [id number] 13:54:00* Test Item Value Reference Range Interpretation Comme nts CK MB Index (test code = CK MB Index) 1.4 <=2.5 Total CK (test code = Total CK) 76 12-191 CK MB (test code = CK MB) 1.1 0.5-3.6 Troponin-I (test code = Troponin-I) no gt <=0.40 [facility] [id number] 13:54:00* Test Item Value Reference Range Interpretation Comme nts Lipase Lvl (test code = Lipase Lvl) 78 73-393 eGFR (test code = eGFR) 84 B/C Ratio (test code = B/C Ratio) 10 6-25 AGAP (test code = AGAP) 8.9 10.0-20.0 Bili Total (test code = Bili Total) 0.2 0.2-1.3 AST (test code = AST) 14 <=37 ALT (test code = ALT) 16 <=65 Alk Phos (test code = Alk Phos) 83 39-136 Albumin Lvl (test code = Albumin Lvl) 3.6 3.5-5.0 Calcium Lvl (test code = Calcium Lvl) 8.9 8.5-10.5 Creatinine Lvl (test code = Creatinine Lvl) 0.9 0.5-1.4 Chloride Lvl (test code = Chloride Lvl) 112 95-109 Potassium Lvl (test code = P otassium Lvl) 3.9 3.5-5.1 Sodium Lvl (test code = Sodium Lvl) 140 135-145 A/G Ratio (test code = A/G Ratio) 1.3 0.7-1.6 Globulin (test code = Globulin) 2.8 2.0-4.0 CO2 (test code = CO2) 23 24-32 Total Protein (test code = T otal Protein) 6.4 6.4-8.4 BUN (test code = BUN) 9 7-22 Glucose Lvl (test code = Glucose Lvl) 83 70-99 [facility] [id number] 13:54:00* Test Item Value Reference Range Interpretation Comme nts Eosinophils # (test code = Eosinophils #) 0.1 <=0.5 Monocytes # (test code = Monocytes #) 0.7 <=0.8 Segs-Bands # (test code = Se gs-Bands #) 8.1 1.5-8.1 Lymphocytes # (test code = Lymphocytes #) 1.8 1.0-5.5 Basophils (test code = Basophils) 0.4 <=1.0 Eosinophils (test code = Eosinophils) 0.9 <=4.0 Segs (test code = Segs) 75.2 45.0-75.0 Monocytes (test code = Monocytes) 6.7 2.0-12.0 Lymphocytes (test code = Lymphocytes) 16.8 20.0-40.0 Hgb (test code = Hgb) 12.4 12.0-16.0 MPV (test code = MPV) 9.4 7.4-10.4 RDW (test code = RDW) 12.7 11.5-14.5 Platelet (test code = Platelet) 275 133-450 MCH (test code = MCH) 31.0 pg 27.0-31.0 MCHC (test code = MCHC) 33.8 32.0-36.0 MCV (test code = MCV) 91.7 80.0-98.0 WBC (test code = WBC) 10.7 3.7-10.4 Hct (test code = Hct) 36.7 36.0-48.0 RBC (test code = RBC) 4.01 4.20-5.40 [facility] AND [id number] 13:54:00* Test Item Value Reference Range Interpretation Comme nts UA Sq Epi (test code = UA Sq Epi) Few /LPF UA Bacteria (test code = UA Bacteria) Occasional /HPF UA WBC (test code = UA WBC) 0-2 /HPF UA RBC (test code = UA RBC) 0-2 /HPF <=2 UA Amorph Desire (test code = UA Amorph Desire) Occasional /HPF UA Leuk Est (test code = UA Leuk Est) Negative (06/23/14 8:54 AM) UA pH (test code = UA pH) 7.5 1 5.0-8.0 UA Spec Grav (test code = UA Spec Grav) 1.010 1 UA Urobilinogen (test code = UA Urobilinogen) 0.2 0.1-1.0 UA Nitrite (test code = UA Nitrite) Negative (06/23/14 8:54 AM) UA Ketones (test code = UA Ketones) Negative mg/dL UA Blood (test code = UA Blood) Negative (06/23/14 8:54 AM) UA Bili (test code = UA Bili) Negative *NA*(06/23/14 8:54 AM) UA Color (test code = UA Color) Yellow *NA*(06/23/14 8:54 AM) UA Turbidity (test code = UA Turbidity) Clear (06/23/14 8:54 AM) UA Glucose (test code = UA Glucose) Negative mg/dL UA Protein (test code = UA Protein) Negative mg/dL [facility] [id number] 21:52:00* Test Item Value Reference Range Interpretation Comme nts Phosphorus (test code = Phosphorus) 3.4 2.5-4.5 Magnesium Lvl (test code = M agnesium Lvl) 2.0 1.8-2.4 eGFR (test code = eGFR) 74 Bili Total (test code = Bili Total) 0.3 0.2-1.3 BUN (test code = BUN) 9 7-22 Glucose Lvl (test code = Glucose Lvl) 84 70-99 Creatinine Lvl (test code = Creatinine Lvl) 1.0 0.5-1.4 Sodium Lvl (test code = Sodium Lvl) 142 135-145 Potassium Lvl (test code = P otassium Lvl) 3.9 3.5-5.1 Chloride Lvl (test code = Chloride Lvl) 108 95-109 CO2 (test code = CO2) 27 24-32 Calcium Lvl (test code = Calcium Lvl) 9.1 8.5-10.5 Total Protein (test code = T otal Protein) 7.6 6.4-8.4 ALT (test code = ALT) 18 <=65 Albumin Lvl (test code = Albumin Lvl) 4.1 3.5-5.0 AST (test code = AST) 16 <=37 Alk Phos (test code = Alk Phos) 100 39-136 Globulin (test code = Globulin) 3.5 2.0-4.0 A/G Ratio (test code = A/G Ratio) 1.2 0.7-1.6 AGAP (test code = AGAP) 10.9 10.0-20.0 B/C Ratio (test code = B/C Ratio) 9 6-25 [id number] 21:52:00* Test Item Value Reference Range Interpretation Comme nts Basophils (test code = Basophils) 0.7 <=1.0 Segs-Bands # (test code = Se gs-Bands #) 4.5 1.5-8.1 Lymphocytes # (test code = Lymphocytes #) 3.3 1.0-5.5 Eosinophils (test code = Eosinophils) 1.6 <=4.0 Monocytes # (test code = Monocytes #) 0.7 <=0.8 Eosinophils # (test code = Eosinophils #) 0.1 <=0.5 Basophils # (test code = Basophils #) 0.1 <=0.2 Segs (test code = Segs) 51.5 45.0-75.0 Lymphocytes (test code = Lymphocytes) 38.1 20.0-40.0 Monocytes (test code = Monocytes) 8.1 2.0-12.0 Hct (test code = Hct) 39.8 36.0-48.0 MCV (test code = MCV) 93.9 80.0-98.0 MCH (test code = MCH) 31.5 pg 27.0-31.0 MCHC (test code = MCHC) 33.6 32.0-36.0 RDW (test code = RDW) 12.8 11.5-14.5 Platelet (test code = Platelet) 276 133-450 MPV (test code = MPV) 9.0 7.4-10.4 WBC (test code = WBC) 8.8 3.7-10.4 RBC (test code = RBC) 4.23 4.20-5.40 Hgb (test code = Hgb) 13.4 12.0-16.0 [facility] [id number] 00:38:00* Test Item Value Reference Range Interpretation Comme nts eGFR (test code = eGFR) 84 BUN (test code = BUN) 8 7-22 Sodium Lvl (test code = Sodium Lvl) 142 135-145 Creatinine Lvl (test code = Creatinine Lvl) 0.9 0.5-1.4 Chloride Lvl (test code = Chloride Lvl) 110 95-109 Potassium Lvl (test code = P otassium Lvl) 3.8 3.5-5.1 Alk Phos (test code = Alk Phos) 100 39-136 AST (test code = AST) 17 <=37 Bili Total (test code = Bili Total) 0.2 0.2-1.3 ALT (test code = ALT) 21 <=65 Glucose Lvl (test code = Glucose Lvl) 78 70-99 Total Protein (test code = T otal Protein) 7.6 6.4-8.4 CO2 (test code = CO2) 29 24-32 Albumin Lvl (test code = Albumin Lvl) 4.1 3.5-5.0 Calcium Lvl (test code = Calcium Lvl) 9.0 8.5-10.5 Globulin (test code = Globulin) 3.5 2.0-4.0 B/C Ratio (test code = B/C Ratio) 9 6-25 A/G Ratio (test code = A/G Ratio) 1.2 0.7-1.6 AGAP (test code = AGAP) 6.8 10.0-20.0 [id number] 00:38:00* Test Item Value Reference Range Interpretation Comme nts Lymphocytes (test code = Lymphocytes) 30.7 20.0-40.0 Segs (test code = Segs) 59.6 45.0-75.0 Basophils # (test code = Basophils #) 0.0 <=0.2 Eosinophils (test code = Eosinophils) 1.3 <=4.0 Monocytes (test code = Monocytes) 8.0 2.0-12.0 Segs-Bands # (test code = Se gs-Bands #) 5.6 1.5-8.1 Lymphocytes # (test code = Lymphocytes #) 2.9 1.0-5.5 Basophils (test code = Basophils) 0.4 <=1.0 Monocytes # (test code = Monocytes #) 0.8 <=0.8 Eosinophils # (test code = Eosinophils #) 0.1 <=0.5 MCH (test code = MCH) 31.3 pg 27.0-31.0 MCV (test code = MCV) 92.6 80.0-98.0 MCHC (test code = MCHC) 33.8 32.0-36.0 RDW (test code = RDW) 13.3 11.5-14.5 Platelet (test code = Platelet) 300 133-450 WBC (test code = WBC) 9.4 3.7-10.4 RBC (test code = RBC) 4.12 4.20-5.40 Hgb (test code = Hgb) 12.9 12.0-16.0 Hct (test code = Hct) 38.1 36.0-48.0 MPV (test code = MPV) 9.6 7.4-10.4 [facility] AND [id number] 20:52:00* Test Item Value Reference Range Interpretation Comme nts UA Bacteria (test code = UA Bacteria) None Seen (04/17/14 2:52 PM) UA RBC (test code = UA RBC) None Seen (04/17/14 2:52 PM) <=2 UA WBC (test code = UA WBC) None Seen (04/17/14 2:52 PM) UA Sq Epi (test code = UA Sq Epi) Occasional /LPF UA Bili (test code = UA Bili) Negative *NA*(04/17/14 2:52 PM) UA Urobilinogen (test code = UA Urobilinogen) 0.2 0.1-1.0 UA Blood (test code = UA Blood) Negative (04/17/14 2:52 PM) UA Nitrite (test code = UA Nitrite) Negative (04/17/14 2:52 PM) UA Leuk Est (test code = UA Leuk Est) Negative (04/17/14 2:52 PM) UA Glucose (test code = UA Glucose) Negative mg/dL UA Ketones (test code = UA Ketones) Negative mg/dL UA Turbidity (test code = UA Turbidity) Clear (04/17/14 2:52 PM) UA Color (test code = UA Color) Yellow *NA*(04/17/14 2:52 PM) UA Spec Grav (test code = UA Spec Grav) 1.010 1 UA Protein (test code = UA Protein) Negative mg/dL UA pH (test code = UA pH) 6.0 1 5.0-8.0 [facility] [id number] 20:27:00* Test Item Value Reference Range Interpretation Comme nts Lipase Lvl (test code = Lipase Lvl) 84 73-393 eGFR (test code = eGFR) 84 Alk Phos (test code = Alk Phos) 125 39-136 ALT (test code = ALT) 99 <=65 AST (test code = AST) 78 <=37 Potassium Lvl (test code = P otassium Lvl) 3.8 3.5-5.1 Chloride Lvl (test code = Chloride Lvl) 109 95-109 Creatinine Lvl (test code = Creatinine Lvl) 0.9 0.5-1.4 Sodium Lvl (test code = Sodium Lvl) 141 135-145 Bili Total (test code = Bili Total) 0.2 0.2-1.3 Albumin Lvl (test code = Albumin Lvl) 4.0 3.5-5.0 Total Protein (test code = T otal Protein) 7.6 6.4-8.4 CO2 (test code = CO2) 26 24-32 Calcium Lvl (test code = Calcium Lvl) 8.6 8.5-10.5 BUN (test code = BUN) 5 7-22 Glucose Lvl (test code = Glucose Lvl) 95 70-99 B/C Ratio (test code = B/C Ratio) 6 6-25 A/G Ratio (test code = A/G Ratio) 1.1 0.7-1.6 AGAP (test code = AGAP) 9.8 10.0-20.0 Globulin (test code = Globulin) 3.6 2.0-4.0 [facility] [id number] 20:27:00* Test Item Value Reference Range Interpretation Comme nts S Preg (test code = S Preg) Negative *NA*(04/17/14 2:27 PM) [facility] [id number] 20:27:00* Test Item Value Reference Range Interpretation Comme nts Lymphocytes # (test code = Lymphocytes #) 2.8 1.0-5.5 Segs-Bands # (test code = Se gs-Bands #) 3.6 1.5-8.1 Monocytes (test code = Monocytes) 7.4 2.0-12.0 Eosinophils (test code = Eosinophils) 1.7 <=4.0 Monocytes # (test code = Monocytes #) 0.5 <=0.8 Basophils (test code = Basophils) 0.9 <=1.0 Segs (test code = Segs) 50.8 45.0-75.0 Lymphocytes (test code = Lymphocytes) 39.2 20.0-40.0 Eosinophils # (test code = Eosinophils #) 0.1 <=0.5 Basophils # (test code = Basophils #) 0.1 <=0.2 Hct (test code = Hct) 38.9 36.0-48.0 MCH (test code = MCH) 31.6 pg 27.0-31.0 MCV (test code = MCV) 95.2 80.0-98.0 MCHC (test code = MCHC) 33.1 32.0-36.0 WBC (test code = WBC) 7.1 3.7-10.4 Platelet (test code = Platelet) 265 133-450 RDW (test code = RDW) 13.2 11.5-14.5 MPV (test code = MPV) 9.2 7.4-10.4 RBC (test code = RBC) 4.08 4.20-5.40 Hgb (test code = Hgb) 12.9 12.0-16.0 [facility] [id number] 22:00:00* Test Item Value Reference Range Interpretation Comme nts A/G Ratio (test code = A/G Ratio) 1.2 0.7-1.6 Globulin (test code = Globulin) 3.1 2.0-4.0 B/C Ratio (test code = B/C Ratio) 8 6-25 AGAP (test code = AGAP) 11.0 10.0-20.0 eGFR (test code = eGFR) 96 Alk Phos (test code = Alk Phos) 86 39-136 AST (test code = AST) 40 <=37 ALT (test code = ALT) 19 <=65 Bili Total (test code = Bili Total) 0.3 0.2-1.3 Albumin Lvl (test code = Albumin Lvl) 3.8 3.5-5.0 CO2 (test code = CO2) 27 24-32 Total Protein (test code = T otal Protein) 6.9 6.4-8.4 Calcium Lvl (test code = Calcium Lvl) 8.8 8.5-10.5 Sodium Lvl (test code = Sodium Lvl) 140 135-145 Creatinine Lvl (test code = Creatinine Lvl) 0.8 0.5-1.4 Chloride Lvl (test code = Chloride Lvl) 106 95-109 Potassium Lvl (test code = P otassium Lvl) 4.0 3.5-5.1 Glucose Lvl (test code = Glucose Lvl) 83 70-99 BUN (test code = BUN) 6 7-22 [id number] 22:00:00* Test Item Value Reference Range Interpretation Comme nts S Preg (test code = S Preg) Negative *NA*(02/07/14 4:00 PM) [id number] 22:00:00* Test Item Value Reference Range Interpretation Comme nts MCH (test code = MCH) 31.5 pg 27.0-31.0 RDW (test code = RDW) 12.9 11.5-14.5 MCHC (test code = MCHC) 34.2 32.0-36.0 MPV (test code = MPV) 8.5 7.4-10.4 Platelet (test code = Platelet) 305 133-450 MCV (test code = MCV) 92.1 80.0-98.0 Hct (test code = Hct) 35.3 36.0-48.0 WBC (test code = WBC) 8.5 3.7-10.4 Hgb (test code = Hgb) 12.1 12.0-16.0 RBC (test code = RBC) 3.83 4.20-5.40 Monocytes # (test code = Monocytes #) 0.6 <=0.8 Basophils # (test code = Basophils #) 0.1 <=0.2 Eosinophils # (test code = Eosinophils #) 0.1 <=0.5 Lymphocytes # (test code = Lymphocytes #) 3.5 1.0-5.5 Eosinophils (test code = Eosinophils) 1.3 <=4.0 Monocytes (test code = Monocytes) 6.8 2.0-12.0 Segs-Bands # (test code = Se gs-Bands #) 4.3 1.5-8.1 Basophils (test code = Basophils) 0.7 <=1.0 Segs (test code = Segs) 50.5 45.0-75.0 Lymphocytes (test code = Lymphocytes) 40.7 20.0-40.0 [facility] [id number] 15:10:00* Test Item Value Reference Range Interpretation Comme [facility] eGFR (test code = eGFR) 113 Chloride Lvl (test code = Chloride Lvl) 107 95-109 Calcium Lvl (test code = Calcium Lvl) 8.9 8.5-10.5 CO2 (test code = CO2) 23 24-32 Creatinine Lvl (test code = Creatinine Lvl) 0.7 0.5-1.4 BUN (test code = BUN) 12 7-22 Glucose Lvl (test code = Glucose Lvl) 103 70-99 Potassium Lvl (test code = P otassium Lvl) 4.1 3.5-5.1 Sodium Lvl (test code = Sodium Lvl) 140 135-145 AGAP (test code = AGAP) 14.1 10.0-20.0 [facility] [id number] 15:10:00* Test Item Value Reference Range Interpretation Comme [facility] Hct (test code = Hct) 35.6 36.0-48.0 Hgb (test code = Hgb) 12.5 12.0-16.0 MPV (test code = MPV) 8.8 7.4-10.4 Platelet (test code = Platelet) 275 133-450 MCH (test code = MCH) 32.2 pg 27.0-31.0 MCV (test code = MCV) 91.6 80.0-98.0 RBC (test code = RBC) 3.88 4.20-5.40 RDW (test code = RDW) 13.4 11.5-14.5 MCHC (test code = MCHC) 35.1 32.0-36.0 WBC (test code = WBC) 7.8 3.7-10.4 Segs-Bands # (test code = Se gs-Bands #) 4.2 1.5-8.1 Lymphocytes # (test code = Lymphocytes #) 2.8 1.0-5.5 Basophils (test code = Basophils) 0.7 <=1.0 Eosinophils (test code = Eosinophils) 0.6 <=4.0 Segs (test code = Segs) 54.4 45.0-75.0 Basophils # (test code = Basophils #) 0.1 <=0.2 Monocytes # (test code = Monocytes #) 0.7 <=0.8 Monocytes (test code = Monocytes) 8.5 2.0-12.0 Lymphocytes (test code = Lymphocytes) 35.8 20.0-40.0 [facility] CenterUR[facility] [id number] 18:00:00* Test Item Value Reference Range Interpretation Comme nts U Preg (test code = U Preg) Negative (11/24/13 1:00 PM) [facility] History and Physical Notes Date/Time Note Provider Source 2023-12-03 01:43:40 Endoscopy H & P Age: [age] year old Sex: female Procedure: colonoscopy ASA Class: II Indication: previous poor bowel prep Anticoagulant use: none Fhx of GI cancer: none Prior endoscopy: Colonoscopy 09/10/2023 with inadequate prep, 1 tubulovillous adenoma, 3 <10 mm TAs, internal hemorrhoids, and R/L/TI colonic bx with no pathologic changes or features of IBD. Repeat colonoscopy scheduled 09/17/23 but canceled 2/2 patient could not tolerate Golytely prep. There are no current results on file for these tests and/or test for 1 year. Recent Labs 06/02/23 1555 HGB 13.7 Recent Labs 06/02/23 1555 MCV 88.8 Recent Labs 06/02/23 1555 PLT 383* Histories: Past Medical History: Diagnosis Date Anxiety Bipolar affective disorder Chronic right-sided thoracic back pain 05/03/2017 Depression Fibromyalgia 12/2017 Hypothyroidism 1998 Migraine 2015 Pap smear abnormality of cervix PTSD (post-traumatic stress disorder) PTSD (post-traumatic stress disorder) Family History Adopted: Yes Problem Relation Age of Onset Other - see comments Mother unknown Other - see comments Father unknown Breast Cancer Maternal Grandmother Cancer Maternal Grandfather throat, in his 70's Ovarian Cancer Paternal Grandmother Past Surgical History: Procedure Laterality Date APPENDECTOMY BI STEREOTACTIC CORE BREAST BIOPSY LEFT Left 12/2016 for microcalcs, Path was usual ductal hyperplasia, benign BLOCK PERIPHERAL NERVE (SHX) Bilateral 11/10/2019 Surgeon: Timi Gastelum MD; Location: [facility] BREAST BIOPSY 2017 Left Breast CARPOMETACARPAL ARTHRODESIS Right 09/29/2017 Surgeon: Francisco Javier Calabrese MD; [facility] CHOLECYSTECTOMY COLONOSCOPY 2012 COLONOSCOPY N/A 02/22/2021 Surgeon: Francisco Javier Fuentes MD; Location: [facility] COLONOSCOPY N/A 09/10/2023 Surgeon: Timbo Childs MD; Location: [facility] ([facility] OR LOCATION ESOPHAGOGASTRODUODENOSCOPY N/A 02/22/2021 Surgeon: Francisco Javier Fuentes MD; Location: [facility] METACARPAL HARDWARE REMOVAL Right 09/29/2017 Surgeon: Francisco Javier Calabrese MD; [facility] UT ANES NERVE MUSC TENDON FASCIA&BURSA KNEE&/POPLT [id number] Bilateral Knee surgeries over the past year / UT INTERNAL SPINAL FIXATION WIRING SPINOUS PROCESS 2008 C4-6 SALPINGO-OOPHORECTOMY 2009, 2012 ovaries and cervix removed SHOULDER SURG PROC UNLISTED SPLINT APPLICATION Right 09/29/2017 Surgeon: Francisco Javier Calabrese MD; Location[facility] STELLATE GANGLION BLOCK Right 02/04/2018 Surgeon: Timi Gastelum MD; [facility] STELLATE GANGLION BLOCK 05/13/2018 STELLATE GANGLION BLOCK Right 05/13/2018 Surgeon: Timi Gastelum MD; [facility] STELLATE GANGLION BLOCK 09/09/2018 STELLATE GANGLION BLOCK Right 09/09/2018 Surgeon: Timi Gastelum MD; [facility] STELLATE GANGLION BLOCK Right 01/06/2019 Surgeon: Timi Gastelum MD; [facility] STELLATE GANGLION BLOCK Right 04/07/2019 Surgeon: Timi Gastelum MD; [facility] STELLATE GANGLION BLOCK N/A 08/11/2019 Surgeon: Timi Gastelum MD; [facility] STELLATE GANGLION BLOCK Right 10/06/2019 Surgeon: Timi Gastelum MD; [facility] THYROIDECTOMY POST PREV THYR SURG TOTAL ABDOMINAL HYSTERECTOMY 2010 with BSO for cervical dysplasia and PCOS No current facility-administered medications for this encounter. Current Outpatient Medications Medication Sig Dispense Refill HYDROcodone-acetaminophen 10-325 mg tablet TAKE 1 TABLET(S) EVERY FOUR HOURS, NEEDED FOR PAIN omeprazole 40 mg capsule Take 1 capsule by mouth in the morning. 30 capsule 2 oxyCODONE-acetaminophen 10-325 mg per tablet TAKE 1 TO 2 TABLETS BY MOUTH EVERY 6 HOURS proMETHazine 12.5 mg tablet Take 1 tablet by mouth every 6 (six) hours as needed for Nausea and Vomiting (N/V). 20 tablet 1 peg-electrolyte soln [id number] -5.86 gram solution Please follow 2 day bowel prep instructions provided by [facility] Endoscopy. 8000 mL 0 QUETIAPINE 300 mg tablet TAKE 2 TABLETS BY MOUTH AT BEDTIME 180 tablet 1 cyclobenzaprine 10 mg tablet Take 1 tablet by mouth 3 (three) times daily as needed for Muscle Spasms. 20 tablet 0 tiZANidine 2 mg tablet Take 1-2 tablets by mouth 3 (three) times daily as needed (muscle spasm/pain). 540 tablet 1 ibuprofen 800 mg tablet Take 1 tablet by mouth every 8 (eight) hours as needed for Pain (scale 4-6). 30 tablet 0 SERTraline 100 mg tablet Take 2 tablets by mouth every morning. 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 Adopted. Social Determinants of Health Financial Resource Strain: Low Risk (07/10/2022) Overall Financial Resource Strain (CARDIA) Difficulty of Paying Living Expenses: Not hard at all Food Insecurity: No Food Insecurity (07/10/2022) Hunger Vital Sign Worried About Running Out of Food in the Last Year: Never true Ran Out of Food in the Last Year: Never true Transportation Needs: No Transportation Needs (07/10/2022) PRAPARE - Transportation Lack of Transportation (Medical): No Lack of Transportation (Non-Medical): No Physical Activity: Insufficiently Active (07/10/2022) Exercise Vital Sign Days of Exercise per Week: 1 day Minutes of Exercise per Session: 10 min Stress: Stress Concern Present (07/10/2022) [employer] [place] [employer] - Occupational Stress Questionnaire Feeling of Stress : To some extent Social Connections: Moderately Integrated (07/10/2022) Social Connection and Isolation Panel [NHANES] Frequency of Communication with Friends and Family: More than three times a week Frequency of Social Gatherings with Friends and Family: Once a week Attends Mu-Ism Services: 1 to 4 times per year Active Member of Clubs or Organizations: No Attends Club or Organization Meetings: Never Marital Status: Housing Stability: Low Risk (07/10/2022) Housing Stability Vital Sign Unable to Pay for Housing in the Last Year: No Number of Places Lived in the Last Year: 2 Unstable Housing in the Last Year: No Physical Exam: Mental Status: alert, oriented x3 Abdomen Distended: no Tenderness: no Impression and Plan: Adrianne Carolina is a 43 year old female with PMH as above who presents for previous poor bowel prep. Will proceed with colonoscopy. Benefits, risks, alternatives, and likelihood of achieving patient's goals of care discussed. Risks discussed including but not limited to aspiration, infection, bleeding, injury to the GI tract or surrounding vessels/structures, perforation, missed polyps/lesions, failure to obtain a diagnosis, failure to complete the procedure, cardiovascular complications such as PA, stroke, arrhythmia, and . Informed consent obtained/verified. Education provided to the patient and family about the procedure. Patient was seen and discussed with attending Dr. Sree SUN DO PGY-6 Gastroenterology and Hepatology Contact Information Available on [facility] Associated attestation - Corinne Balbuena MD - 12/03/2023 11:24 AM CDT After discussion with Dr. Sun, I examined this patient. I agree with resident's note as written. IM-GASTROENTEROLOGY [facility] 2023-09-09 14:32:01 Endoscopy H & P Age: [age] year old Sex: female ASA Class: II Indication: Colonoscopy for evaluation of diarrhea/rectal bleeding/IBD r/o "SH: Denies smoking or tobacco. FHx of GI malignancy cancer: pt is adopted, biologic grandmother stomach issues? Previous abdominal surgeries: cholecystectomy, appendectomy, hysterectomy Previous endoscopy: EGD/colonoscopy normal in 2020" Pt reports sx at age of 1 "intestinal surgery" Last antiplatelet/anitgocaulant use: None HGB (g/dL) Date Value 06/02/2023 13.7 05/13/2023 13.0 Recent Labs 06/02/23 1555 MCV 88.8 Recent Labs 06/02/23 1555 PLT 383* There are no current results on file for these tests and/or test for 1 year. Covid status: Present status: asymptomatic Past Medical History: Diagnosis Date Anxiety Bipolar affective disorder Chronic right-sided thoracic back pain 05/03/2017 Depression Fibromyalgia 12/2017 Hypothyroidism 1998 Migraine 2014 Pap smear abnormality of cervix PTSD (post-traumatic stress disorder) PTSD (post-traumatic stress disorder) Family history of Colon Cancer/Polyps: no No current facility-administered medications for this encounter. Current Outpatient Medications Medication Sig Dispense Refill cyclobenzaprine 10 mg tablet Take 1 tablet by mouth 3 (three) times daily as needed for Muscle Spasms. 20 tablet 0 tiZANidine 2 mg tablet Take 1-2 tablets by mouth 3 (three) times daily as needed (muscle spasm/pain). 540 tablet 1 ibuprofen 800 mg tablet Take 1 tablet by mouth every 8 (eight) hours as needed for Pain (scale 4-6). 30 tablet 0 QUEtiapine 300 mg tablet Take 2 tablets by mouth at bedtime. 60 tablet 1 SERTraline 100 mg tablet Take 2 tablets by mouth every morning. 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 Adopted. Social Determinants of Health Financial Resource Strain: Low Risk (07/10/2022) Overall Financial Resource Strain (CARDIA) Difficulty of Paying Living Expenses: Not hard at all Food Insecurity: No Food Insecurity (07/10/2022) Hunger Vital Sign Worried About Running Out of Food in the Last Year: Never true Ran Out of Food in the Last Year: Never true Transportation Needs: No Transportation Needs (07/10/2022) PRAPARE - Transportation Lack of Transportation (Medical): No Lack of Transportation (Non-Medical): No Physical Activity: Insufficiently Active (07/10/2022) Exercise Vital Sign Days of Exercise per Week: 1 day Minutes of Exercise per Session: 10 min Stress: Stress Concern Present (07/10/2022) [employer] [place] [employer] - Occupational Stress Questionnaire Feeling of Stress : To some extent Social Connections: Moderately Integrated (07/10/2022) Social Connection and Isolation Panel [NHANES] Frequency of Communication with Friends and Family: More than three times a week Frequency of Social Gatherings with Friends and Family: Once a week Attends Mu-Ism Services: 1 to 4 times per year Active Member of Clubs or Organizations: No Attends Club or Organization Meetings: Never Marital Status: Housing Stability: Low Risk (07/10/2022) Housing Stability Vital Sign Unable to Pay for Housing in the Last Year: No Number of Places Lived in the Last Year: 2 Unstable Housing in the Last Year: No Mental Status: alert, oriented x3 Chest: Nonlabored breathing, speaks in complete sentences without pauses Cardiovascular: regular rate and rythmn Abdomen: Soft, nontender, nondistended Spleen Tip: non-palpable Hepatomegaly: no Mass: not present Tenderness: no Impression and Plan: Proceed with Colonoscopy for evaluation of diarrhea/rectal bleeding/IBD r/o Education provided to the patient about the procedure. Benefits, risks, alternatives, and likelihood of achieving patient's goals of care discussed. Risks discussed including but not limited to aspiration, infection, bleeding, perforation, missed polyps/lesions, failure to obtain a diagnosis, failure to complete the procedure, cardiovascular complications such as PA, stroke, arrhythmia, and . Informed consent obtained/verified. Timbo Childs MD [facility] Notes CTA BRAIN:IMPRESSION:2. Neck CTA:All quantitative and qualitative assessments of carotid bifurcation andFINDINGS :IMPRESSIONS:SL: 12ADDITIONAL DATA: NoneFINDINGS:IMPRESSION:TECHNIQUE:SL: 24TECHNIQUE: Date/Time Note Provider Source 2025-01-12 14:16:15 TYRELL: 11/24/2024 DIAGNOSES/PLAN: MDD (major depressive disorder), recurrent, moderate (primary encounter diagnosis) Comment: Chronic, improving Plan: - Continue Zoloft 200 mg Qdaily - Continue Wellbutrin XL 300 mg Qdaily - Continue Seroquel 300 mg QHS PETE (generalized anxiety disorder) Comment: Chronic, persistent Plan: - Continue Zoloft 200 mg Qdaily - Continue Hydroxyzine 25 mg BID PRN - Continue Seroquel 300 mg QHS Insomnia, unspecified type Comment: Chronic, stable Plan: - Stop Trazodone 50 mg QHS PRN, patient self discontinued - Continue Seroquel 300 mg QHS On high dose antipsychotic drug therapy Comment: Chronic, ongoing Plan: - Continue to monitor for symptoms of hypomania Patient was instructed to call clinic with any question, concern, or side effect, and to call 911 or go to the nearest ER if patient has suicidal ideation, homicidal ideation, or experiences a severe deterioration in condition threatening safety. Case was discussed and seen with Attending, Dr. Colmenares who agreed w/ the plan. Return to clinic: 1 month NOV: 01/27/2025 Medication pending provider approval. [facility] 2024-12-06 10:59:28 Elapsed Sedation Time: 14 min. Mloly Fuller RN [facility] 2024-11-28 15:28:02 Left a detailed message with the following preop instructions. Nothing by mouth after midnight night before procedure to include gum, mints, hard candy, suckers, cough drops, and dipping tobacco. Pt advised clear liquids are allowed up until 2 hours prior to arrival time. Pt was advised to have a responsible adult with them day of procedure, who must stay on location and take pt home. Pt may use medical transportation uber, lyft, taxi etc only if responsible person over the age of 18 is with the pt. Pt may not drive self home. Wear comfortable clothing and leave valuables at home. Address is [address] [place] [address] in [place]. If taking insulin patient is to take one half of normal evening dose day prior to procedure and no insulin the morning of. Pt to follow physician instruction regarding blood thinners and NSAIDS. Arrival time of 0830 given. No animals of any kind in procedure areas. Molly Fuller RN [facility] 2024-11-24 13:39:18 Called and rescheduled procedure to 12/06 [facility] 2024-11-23 12:56:24 Copied from [facility] #[id number]. Topic: Appointment - Reschedule Appointment >> Nov 23, 2024 12:55 PM Patient Director Card wrote: Patient called to reschedule appointment. Procedure appt 11/28/2024 anything after 12/05 please advise [phone] (home) [phone] (work) Jhonatan Salgado [facility] 2024-10-21 13:42:15 Returned the pt's call to assist w/ rescheduling a follow up appt. No further action required, closing encounter. Rosamaria Mendieta [facility] 2024-10-21 12:31:12 Adrianne Carolina is a 44 year old female Pt is calling to schedule appt for nerve block, Please advise (home) Jo Patterson [facility] 2024-06-27 14:41:26 Elapsed Sedation Time: 14 min. Manoj Mercedes RN [facility] 2024-05-31 09:58:23 Spoke with patient, rescheduled to 06/27. [facility] Reinier Blackwood RN [facility] 2024-05-31 09:02:36 Adrianne Carolina is a 43 year old female calling to reschedule procedure [employer] Leno Longoria [facility] 2024-05-26 09:04:34 Patient was identified with name and date of during prescreening call. Procedure was verified. Discussed preop instructions with pt. Nothing by mouth after midnight night before procedure to include gum, mints, hard candy, suckers, cough drops, and dipping tobacco. Pt advised clear liquids are allowed up until 2 hours prior to arrival time. Pt was advised to have a responsible adult with them day of procedure, who must stay on location and take pt home. Pt may use medical transportation uber, lyft, taxi etc only if responsible person over the age of 18 is with the pt. Pt may not drive self home. Wear comfortable clothing and leave valuables at home. Address is [address] [place] [address] in [place]. If taking insulin patient is to take one half of normal evening dose day prior to procedure and no insulin the morning of. Pt to follow physician instruction regarding blood thinners and NSAIDS. Pt verbalizes understanding. Arrival time of 1230 given. Culp RN [facility] 2024-04-15 13:00:49 SW patient, rescheduled a f/u visit for 04/26 @ [address] Gastelum. Cruz LVN [facility] 2024-04-15 12:37:13 Adrianne Carolina is a 43 year old female Pt is calling to speak with a nurse regarding pain in her feet X 2 days, Pt states, her pain is so excruciating she had to take off from work, Please advise (home) Patterson [facility] 2024-03-16 07:58:53 Referral has been re-placed. Left Foot sprain Follow-up examination for injury [Z09] - Primary Foot sprain, left, subsequent encounter [Z48.427J] Dr. Kaela Jimenez [address] [place] [address], [address] [place] [address] Ph No:[phone] [facility] 2024-03-14 11:28:53 New referral request, pt refuses appt, message sent to provider for review. Recent Visits Date Type Provider Dept 07/30/23 Office Visit Vianey Sands FNP [facility] 01/30/23 Office Visit Tim Pinto MD [facility] Showing recent visits within past 540 days with a meds authorizing provider and meeting all other requirements Future Appointments No visits were found meeting these conditions. Showing future appointments within next 150 days with a meds authorizing provider and meeting all other requirements Garay RN [facility] 2024-03-08 15:20:19 Pt given printed and verbal discharge instructions regarding foot sprain, encouraged hydration, 1 Prescription provided. Discussed ibuprofen and to take with food to avoid GI distress. Pt verbalized understanding of instructions, pt awake alert oriented, resp reg unlabored, skin w/d, color appropriate for race, moves all ext well,pt encouraged to follow up with pcp and orthopedic. Advised to seek medical attention for new/prolonged/worsening of symptoms, Symptoms improved. Awake, alert oriented, resp reg unlabored, skin w/d, pt leaving via wheelchair, in no apparent distress. [facility] Annabel Alvarado RN [facility] 2024-03-08 12:24:46 Fall in parking lot, left ankle pain. No LOC, no head strike. No other obvious injuries. HX: denies. [facility] Karla Sands RN [facility] 2024-02-25 14:10:58 Patient would like for next refill to be a 90 days supply. 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 Gastelum. Appt rescheduled to 02/15/24. [facility] 2024-02-02 08:49:16 Contacted patient to follow up with them regarding their procedure at the [facility] pain procedure suite. The patient reported the following information: 1) Are you currently having any nausea or vomiting? no 2) Do you or have you had any drainage at your injection site? no 3) What was your pain scale prior to your procedure? 7 4) What is your pain scale now? 0 5) Have you had any difficulty urinating? no 6) Do you now or since your procedure have you had any fever? no 7) Is there anything concerning that you would like to share with your provider? no 8) Were you satisfied with your care and experience in the [facility] Pain Procedure Suite? yes Crystal Mays 02/02/2024 8:49 AM T Crystal Mays [facility] 2024-02-01 15:21:47 Elapsed Sedation Time: 12 min. [facility] 2024-01-25 14:29:03 Patient was identified with name and date of during prescreening call. Procedure was verified. Discussed preop instructions with pt. Nothing by mouth after midnight night before procedure to include gum, mints, hard candy, suckers, cough drops, and dipping tobacco. Pt advised clear liquids are allowed up until 2 hours prior to arrival time. Pt was advised to have a responsible adult with them day of procedure, who must stay on location and take pt home. Pt may use medical transportation uber, lyft, taxi etc only if responsible person over the age of 18 is with the pt. Pt may not drive self home. Wear comfortable clothing and leave valuables at home. Address is [address] [place] [address] in [place]. If taking insulin patient is to take one half of normal evening dose day prior to procedure and no insulin the morning of. Pt to follow physician instruction regarding blood thinners and NSAIDS. Pt verbalizes understanding. Arrival time of 1330 given. Latoya Dawn RN [facility] 2024-01-04 10:48:13 Called and spoke with patient to reschedule procedure with sedation. Pt prefers late afternoon. Scheduled for Jan. Will call for arrival time in a couple of weeks. Blanquita Mai RN [facility] 2023-12-31 19:08:00 Pt given printed and verbal discharge instructions regarding vertigo and injury of head. 2 Prescriptions sent to pharmacy. Pt verbalized understanding of instructions, pt awake alert oriented, resp reg unlabored, skin w/d, color appropriate for race, moves all ext well,pt encouraged to follow up with pcp. Advised to seek medical attention for new/prolonged/worsening of symptoms. No adverse reaction to meds given in ER noted upon discharge. Awake, alert oriented, resp reg unlabored, skin w/d, pt leaving amb with steady gait, in no apparent distress accompanied by spouse. Umm Valenzuela RN [facility] 2023-12-31 18:35:00 Fluid is running [facility] 2023-12-31 16:34:05 Pt presents to ED with c/o fall. Late sat/ early sun pt tripped over table and fell. Pt states when she fell she hit front side of left fore head and left leg. Pt denies any LOC. Pt states since Thursday she has had dizziness, eye (flashes of dots), headache 09/13, and nausea Pt A&OX4, ambulated holding on to husbands arm, Tylenol today unknown time. LMP: hysterectomy Alejandro ARMENDARIZ present during triage Britta Gonzales RN [facility] 2023-12-29 12:12:20 Patient was identified with name and date of during prescreening call. Procedure was verified. Discussed preop instructions with pt. Nothing by mouth after midnight night before procedure to include gum, mints, hard candy, suckers, cough drops, and dipping tobacco. Pt advised clear liquids are allowed up until 2 hours prior to arrival time. Pt was advised to have a responsible adult with them day of procedure, who must stay on location and take pt home. Pt may use medical transportation uber, lyft, taxi etc only if responsible person over the age of 18 is with the pt. Pt may not drive self home. Wear comfortable clothing and leave valuables at home. Address is [address] [place] [address] in [place]. If taking insulin patient is to take one half of normal evening dose day prior to procedure. Pt to follow physician instruction regarding blood thinners and NSAIDS. Pt verbalizes understanding. Arrival time of 1300 given. Marion Culp RN [facility] 2023-11-25 11:04:38 Miralax/Gatorade prep and Miralax 1 capful once per day x7 days leading up to procedure instructions sent via [email or web address] &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 Control/Protection: Surgical. Past Surgical History: Past Surgical History: Procedure Laterality Date APPENDECTOMY BI STEREOTACTIC CORE BREAST BIOPSY LEFT Left 12/2016 for microcalcs, Path was usual ductal hyperplasia, benign BLOCK PERIPHERAL NERVE (SHX) Bilateral 11/10/2019 Surgeon: Timi Gastelum MD; Location: [facility] BREAST BIOPSY 2017 Left Breast CARPOMETACARPAL ARTHRODESIS Right 09/29/2017 Surgeon: Francisco Javier Calabrese MD; Location[facility] CHOLECYSTECTOMY COLONOSCOPY 2012 COLONOSCOPY N/A 02/22/2021 Surgeon: Francisco Javier Fuentes MD; Location: [facility] ESOPHAGOGASTRODUODENOSCOPY N/A 02/22/2021 Surgeon: Francisco Javier Fuentes MD; Location[facility] METACARPAL HARDWARE REMOVAL Right 09/29/2017 Surgeon: Francisco Javier Calabrese MD; Location: [facility] UT ANES NERVE MUSC TENDON FASCIA&BURSA KNEE&/POPLT [id number] Bilateral Knee surgeries over the past year / UT INTERNAL SPINAL FIXATION WIRING SPINOUS PROCESS 2008 C4-6 SALPINGO-OOPHORECTOMY 2009, 2012 ovaries and cervix removed SHOULDER SURG PROC UNLISTED SPLINT APPLICATION Right 09/29/2017 Surgeon: Francisco Javier Calabrese MD; Location: [facility] STELLATE GANGLION BLOCK Right 02/04/2018 Surgeon: Timi Gastelum MD; Location: [facility] Location STELLATE GANGLION BLOCK 05/13/2018 STELLATE GANGLION BLOCK Right 05/13/2018 Surgeon: Timi Gastelum MD; Location: [facility] Location STELLATE GANGLION BLOCK 09/09/2018 STELLATE GANGLION BLOCK Right 09/09/2018 Surgeon: Timi Gastelum MD; Location: [facility] Location STELLATE GANGLION BLOCK Right 01/06/2019 Surgeon: Timi Gastelum MD; Location: [facility] Location STELLATE GANGLION BLOCK Right 04/07/2019 Surgeon: Timi Gastelum MD; Location: [facility] STELLATE GANGLION BLOCK N/A 08/11/2019 Surgeon: Timi Gastelum MD; Location: [facility] Location STELLATE GANGLION BLOCK Right 10/06/2019 Surgeon: Timi Gastelum MD; [facility]: [facility] THYROIDECTOMY POST PREV THYR SURG TOTAL ABDOMINAL HYSTERECTOMY 2010 with BSO for cervical dysplasia and PCOS Review of Systems: Review of Systems Constitutional: Positive for activity change, appetite change, chills and fatigue. Negative for diaphoresis and fever. HENT: Negative for congestion, ear discharge, ear pain, rhinorrhea, sore throat and trouble swallowing. Eyes: Negative for photophobia, pain, discharge and redness. Respiratory: Negative for cough, chest tightness, shortness of breath and wheezing. Cardiovascular: Negative for chest pain, palpitations and leg swelling. Gastrointestinal: Positive for blood in stool and diarrhea. Negative for abdominal distention, abdominal pain, constipation, nausea and vomiting. Genitourinary: Negative for dysuria, urgency, polyuria, frequency, hematuria and flank pain. Musculoskeletal: Negative for arthralgias, joint swelling, myalgias and neck stiffness. Skin: Negative for color change, rash and wound. Neurological: Positive for weakness. Negative for dizziness, seizures, syncope, facial asymmetry, light-headedness, numbness and headaches. Psychiatric/Behavioral: Negative for agitation, confusion, hallucinations and self-injury. The patient is nervous/anxious. Hematological: Negative for adenopathy and cold intolerance. Does not bruise/bleed easily. Endocrine: Negative for cold intolerance, polydipsia and polyuria. Physical Exam: ED Triage Vitals [06/02/23 1508] Weight 97.5 kg (215 lb) Actual or estimated Estimated by patient/family report Height 1.702 m (5' 7") BP (!) 159/98 Pulse 86 Resp 16 Temp 37 ?C (98.6 ?F) Temp source Oral SpO2 98 % Measured on Room air Physical Exam Vitals and nursing note reviewed. Constitutional: General: She is awake. She is not in acute distress. Appearance: She is well-developed, well-groomed and overweight. She is not ill-appearing, toxic-appearing or diaphoretic. HENT: Head: Normocephalic and atraumatic. Right Ear: External ear normal. Left Ear: External ear normal. Nose: Nose normal. Mouth/Throat: Pharynx: No oropharyngeal exudate. Eyes: General: No scleral icterus. Right eye: No discharge. Left eye: No discharge. Conjunctiva/sclera: Conjunctivae normal. Pupils: Pupils are equal, round, and reactive to light. Neck: Thyroid: No thyromegaly. Vascular: No JVD. Trachea: No tracheal deviation. Cardiovascular: Rate and Rhythm: Normal rate and regular rhythm. Heart sounds: Normal heart sounds. No murmur heard. No friction rub. No gallop. Pulmonary: Effort: Pulmonary effort is normal. No respiratory distress. Breath sounds: Normal breath sounds. No stridor. No wheezing or rales. Chest: Chest wall: No tenderness. Abdominal: General: Bowel sounds are normal. There is no distension. Palpations: Abdomen is soft. There is no mass. Tenderness: There is abdominal tenderness in the right upper quadrant, right lower quadrant and suprapubic area. There is guarding. There is no right CVA tenderness, left CVA tenderness or rebound. Comments: Right Flank Tenderness Musculoskeletal: General: No tenderness or deformity. Normal range of motion. Cervical back: Normal range of motion and neck supple. Lymphadenopathy: Cervical: No cervical adenopathy. Skin: General: Skin is warm and dry. Coloration: Skin is not pale. Findings: No erythema or rash. Neurological: Mental Status: She is alert and oriented to person, place, and time. Cranial Nerves: No cranial nerve deficit. Motor: No abnormal muscle tone. Coordination: Coordination normal. Deep Tendon Reflexes: Reflexes are normal and symmetric. Reflexes normal. Psychiatric: Behavior: Behavior normal. Behavior is cooperative. Thought Content: Thought content normal. Judgment: Judgment normal. Radiology: CT ABDOMEN PELVIS W CONTRAST Final Result EXAMINATION: CT ABDOMEN AND PELVIS WITH CONTRAST 06/02/2023 5:59 PM Ordering physician: CLINICAL HISTORY: Right-sided abdominal and flank pain COMPARISON EXAM(S): CAT scan abdomen and pelvis dated 12/16/2022 Technique: Contiguous axial sections through the abdomen and pelvis were obtained from the lung bases to the ischial tuberosities following the uneventful administration of intravenous contrast. Coronal and sagittal reformatted sequences were also obtained. This utilized 96cc of [id number]. Oral contrast was not administered.?CT scan done according to ALARA (As Low as Reasonably Achievable)? Findings: The visualized lung patterson are clear. No pleural effusions. CT abdomen:Previous cholecystectomy. Previous appendectomy. Mild fatty infiltration of the liver. The liver measured the upper limits of normal at 16.3 cm. The biliary tree, pancreas, spleen, kidneys, adrenal glands, ureters, gastrointestinal tract, are radiographically unremarkable in appearance. No focal fluid collections or pathologic adenopathy. CT pelvis: Previous hysterectomy. The adnexa, bladder, and pelvic structures are radiographically unremarkable in appearance. No focal fluid collections or pathologic adenopathy. The visualized bony skeleton demonstrates no acute radiographic abnormalities. Mild degenerative changes of the lumbosacral junction, superimposed on a minimal levoscoliosis. Mild sclerotic degenerative change at the sacroiliac joints. IMPRESSION Impression: 1. Mild fatty infiltration of the liver. 2. Postsurgical changes, as described above. No acute CAT scan defined complication. Otherwise, Radiographically unremarkable CAT scan of the abdomen and pelvis. RL: [id number] HS:Y Lab Results: Lab Results CBC WITH DIFF - Abnormal Result Value Ref Range WBC 11.86 (*) 4.30 - 11.10 10*3/?L RBC 4.48 3.93 - 5.25 10*6/?L HGB 13.7 11.6 - 15.0 g/dL HCT 39.8 35.7 - 45.2 % MCV 88.8 80.6 - 95.5 fL MCH 30.6 25.9 - 32.8 pg MCHC 34.4 31.6 - 35.1 g/dL RDW-SD 43.0 39.0 - 49.9 fL RDW-CV 13.2 12.0 - 15.5 % PLT 383 (*) 166 - 358 10*3/?L MPV 12.2 9.5 - 12.9 fL NRBC/100 WBC 0.0 0.0 - 10.0 /100 WBCs NRBC x10 3 <0.01 10*3/?L GRAN MAT (NEUT) % 56.9 % IMM GRAN % 0.80 % LYMPH % 34.1 % MONO % 6.4 % EOS % 1.5 % BASO % 0.3 % GRAN MAT x10 3 (ANC) 6.75 1.88 - 7.09 10*3/uL IMM GRAN x10 3 0.09 (*) 0.00 - 0.06 10*3/uL LYMPH x10 3 4.04 (*) 1.32 - 3.29 10*3/uL MONO x10 3 0.76 0.33 - 0.92 10*3/uL EOS x10 3 0.18 0.03 - 0.39 10*3/uL BASO x10 3 0.04 0.01 - 0.07 10*3/uL REACT LYMPHS Rare COMP. METABOLIC PANEL (38494) - Abnormal NA 142 135 - 145 mmol/L K 3.4 (*) 3.5 - 5.0 mmol/L CL 108 98 - 108 mmol/L CO2 TOTAL 28 23 - 31 mmol/L AGAP 6 2 - 16 BUN 6 (*) 7 - 23 mg/dL GLUCOSE 82 70 - 110 mg/dL CREATININE 0.69 0.50 - 1.04 mg/dL TOTAL BILI 0.3 0.1 - 1.1 mg/dL CALCIUM 9.3 8.6 - 10.6 mg/dL T PROTEIN 8.2 6.3 - 8.2 g/dL ALBUMIN 4.7 3.5 - 5.0 g/dL ALK PHOS 92 34 - 122 U/L ALTv 25 5 - 35 U/L AST(SGOT) 26 13 - 40 U/L eGFR 110.6 mL/min/1.73m2 URINALYSIS - Abnormal APPEARANCE Clear Clear COLOR Straw (*) Yellow PH 6.0 4.8 - 8.0 SP GRAVITY 1.005 1.003 - 1.030 GLU U QUAL Normal Normal BLOOD Negative Negative KETONES Negative Negative PROTEIN Negative Negative UROBILIN Normal Normal BILIRUBIN Negative Negative NITRITE Negative Negative LEUK PIERCE Negative Negative RBC/HPF 1 0 - 3 HPF WBC/HPF 1 0 - 5 HPF BACTERIA Few (*) Negative MUCOUS Slight (*) Negative LPF SQ EPITH 3 HPF LIPASE - Normal LIPASE 63 0 - 220 U/L SEDIMENTATION RATE - Normal ESR 5 0 - 20 mm/HR HIGH SENSITIVITY CRP CELIAC SCREEN GIARDIA CRYPTOSPORIDIUM AG SCR EKG: If EKG completed, see Procedure Note. Orders and Treatments: Orders Placed This Encounter Procedures CT ABDOMEN PELVIS W CONTRAST Cbc with Diff Comp. Metabolic Panel (37116) Lipase Urinalysis Sedimentation Rate High Sensitivity Crp Celiac Screen GIARDIA CRYPTOSPORIDIUM AG SCR Orders Placed This Encounter Medications hyoscyamine sulfate (LEVSIN/SL) sublingual tablet 0.25 mg NaCl 0.9% (NS) bolus infusion 1,000 mL lactobacillus acidophilus tablet 1 mg loperamide (IMODIUM A-D) capsule 4 mg iopamidol (ISOVUE 370-500 mL) injection 80 mL hyoscyamine sulfate (LEVSIN/SL) 0.125 mg sublingual tablet Saccharomyces boulardii (FLORASTOR) 250 mg capsule Bismuth Subsalicylate (KAOPECTATE EX STR, BISMUTH SS,) 525 mg/15 mL suspension Oral Electrolytes (PEDIALYTE ADVANCED CARE) solution loperamide 2 mg capsule First Provider Eval: ED Events Date/Time Event User Comments 06/02/23 1502 Medical Screening Begins MASON CHOI MD -- 06/02/23 1502 First Provider Evaluation MASON CHOI MD -- ED COURSE Patient's condition improved with the treatment provided in the ED, all her abdominal work up was essentially normal, including her ESR, patient was reassured and all the results were discussed with her and her . Patient has a follow up with [facility] already scheduled within a week. Will provide her with adequate medications to address her symptoms. Diagnosis/Impression as of 06/02/23 1839 Abdominal pain, unspecified abdominal location Bloody diarrhea Chronic diarrhea Blood in stool Procedures: Procedures MDM: Medical Decision Making Problems Addressed: Abdominal pain, unspecified abdominal location: self-limited or minor problem Details: Very limited and unspecific abdominal pain Blood in stool: chronic illness or injury Bloody diarrhea: chronic illness or injury Chronic diarrhea: chronic illness or injury Details: No signs of acute infectious or inflammatory process affecting her GI Tract, no evidence of Crohn's or Ulcerative Colitis, ESR only 5, patient not Anemic. Amount and/or Complexity of Data Reviewed Independent Historian: spouse Details: at bed side provided additional information about her symptoms External Data Reviewed: labs, radiology and notes. Details: From previous visits reviewed and compared with current data Labs: ordered. Decision-making details documented in ED Course. Radiology: ordered and independent interpretation performed. Decision-making details documented in ED Course. Risk OTC drugs. Prescription drug management. Flowsheet Documentation: Scoring Tools: No data recorded Disposition/Condition: ED Disposition ED Disposition Disch - Home Condition Stable Comment -- Discharge Medications: Patient's Medications START taking these medications BISMUTH SUBSALICYLATE (KAOPECTATE EX STR, BISMUTH SS,) 525 MG/15 ML SUSPENSION Take 15 mL by mouth in the morning and 15 mL in the evening. HYOSCYAMINE SULFATE (LEVSIN/SL) 0.[address] 2 tablets under the tongue every 6 (six) hours as needed (Abdominal pain or cramping). LOPERAMIDE 2 MG CAPSULE Take 2 capsules by mouth 3 (three) times daily as needed for Diarrhea. ORAL ELECTROLYTES (PEDIALYTE ADVANCED CARE) SOLUTION Take 500 mL by mouth every 6 (six) hours. SACCHAROMYCES BOULARDII (FLORASTOR) 250 MG CAPSULE Take 1 capsule by mouth in the morning and 1 capsule in the evening. CONTINUE taking these medications which have NOT CHANGED ACETAMINOPHEN-CODEINE 300-60 MG TABLET Take 1 tablet by mouth 4 (four) times daily as needed for Pain. Indications: chronic pain ALBUTEROL 90 MCG/ACTUATION INHALER Inhale 2 Puffs every 6 (six) hours as needed for Chest tightness or Wheezing. BUPROPION XL (WELLBUTRIN XL) 150 MG 24 HR TABLET Take 1 tablet by mouth in the morning. CETIRIZINE 10 MG TABLET Take 1 tablet by mouth in the morning. CETIRIZINE 10 MG TABLET Take 1 tablet by mouth in the morning. FLUTICASONE PROPIONATE 50 MCG/ACTUATION NASAL SPRAY Use 2 Sprays in each nostril in the morning. FLUTICASONE PROPIONATE 50 MCG/ACTUATION NASAL SPRAY Use 2 Sprays in each nostril in the morning. HYDROXYZINE 50 MG CAPSULE Take 1 capsule by mouth 2 (two) times daily as needed for Anxiety. PROMETHAZINE 12.5 MG SUPPOSITORY Insert 1 Suppository into rectum every 4 (four) hours as needed for N/V unresponsive to oral antiemetics. QUETIAPINE 300 MG TABLET Take 2 tablets by mouth at bedtime. SERTRALINE 100 MG TABLET Take 2 tablets by mouth every morning. THYROID, PORK, (ARMOUR THYROID) 90 MG TABLET TAKE 1 TAB DAILY EVERY OTHER DAY AND 1 & 1/2 TABS DAILY EVERY OTHER DAY. TIZANIDINE 2 MG TABLET TAKE 1-2 TABLETS BY MOUTH 3 (THREE) TIMES DAILY NEEDED (MUSCLE SPASM/PAIN). START taking Modified Medications as Prescribed No medications on file STOP taking these medications No medications on file Follow-up: Electronically signed by: Mason Choi MD 06/02/23 1840 [facility] 2023-06-01 12:06:25 Returned patient call, informed her that she's scheduled for a telehealth visit on 06/11 @ [address] Gastelum. Cruz LVN [facility] 2023-05-29 12:20:29 Spoke with the patient. Verified name and . The patient is still experiencing lots of bleeding and she complains of being weak and lethargic. She said that due to her circumstances she is unable to go to the ER. She asked what other options she has, which first and foremost getting her labs drawn is priority to see what her hemoglobin is due to the blood loss(es) she has experienced, so other than the ER, I told her she can go to the Urgent care. She said "thank you" and ended the call. Sylvester RN [facility] 2023-05-29 08:42:51 Adrianne Carolina is a 42 year old female PT is stating she is having a difficult time collecting sample, states there is more blood in her stool she can't be too far from bathroom. Wanting to know if theres an alternative on what to do , has taken fiber, anti diarrhea medication as well Please contact pt [phone] (home) [facility] Cuatedavi Cisneros [facility] 2023-05-13 09:45:00 Images from the original note were not included. Venipuncture collection performed by clean technique on the back of right hand. Total of 1 attempts were made. Slight pressure and a bandage/dressing were applied to the site(s). The patient experienced no complications. The following specimens were processed according to instructions and sent to [facility] laboratories LT BLUE Lt Green SST 3 RED LAV 1 PPT DK GREEN (L) DK GREEN (S)/// Fibrosure set BLUE,SST & LAV ISABEL DK BLUE (K2) DK BLUE (S) ACD RST BLOOD CULTURE SET BLOOD CULTURE (AFB AND FUNGUS ) VERIFYNOW Monogram TYPENEX (LAV TOP) ARM BAND ON PATIENT Z plasma preservative tube (call lab for tube)ARUP Vasoactive Intestinal Peptide (call lab for tube)ARUP FEDEX ( NIPT) URINE URINE CULTURE APTIMA URINE STOOL [facility] 2023-01-23 14:40:45 Elapsed Sedation Time: 15 min. Molly Fuller RN [facility] 2022-12-16 02:42:07 Pt given printed and verbal discharge instructions regarding gastroenteritis, N/V, diarrhea, and dehydration Prescriptions provided Pt verbalized understanding of instructions, pt awake alert oriented, resp reg unlabored, skin w/d, color appropriate for race, moves all ext well,pt encouraged to follow up with pcp Advised to seek medical attention for new/prolonged/worsening of symptoms No adverse reaction to meds given in ER noted upon discharge PIV d'cd, dressing to site, catheter in tact. Awake, alert oriented, resp reg unlabored, skin w/d, pt leaving amb with steady gait, in no apparent distress Rekha Angelo RN [facility] 2022-12-15 23:23:34 Pt presents to ED with c/o vomiting, incontinence, weakness and diarrhea that began around 520pm Pt also c/o abd and flank pain. Phenergan at 830pm but vomited. Britta Gonzales RN [facility] 2022-11-03 11:23:50 Elapsed Sedation Time: 17 min. Latoya Dawn RN [facility] 2022-10-31 15:45:58 Problem: Pain Goal: Control of pain at or below patient's documented comfort goal 10/31/2022 1545 by Shannon Pugh RN Outcome: Resolved 10/31/2022 1053 by Shannon Pugh RN Outcome: Adequate for discharge 10/31/2022 1051 by Shannon Pugh RN Outcome: Adequate for discharge Problem: Anxiety related to research protocol(s) Goal: Alleviation of anxiety 10/31/2022 1545 by Shannon Pugh RN Outcome: Resolved 10/31/2022 1053 by Shannon Pugh RN Outcome: Adequate for discharge 10/31/2022 1051 by Shannon Pugh RN Outcome: Progressing as expected Goal: Subject will follow regular sleep pattern. 10/31/2022 1545 by Shannon Pugh RN Outcome: Resolved 10/31/2022 1053 by Shannon Pugh RN Outcome: Adequate for discharge 10/31/2022 1051 by Shannon Pugh RN Outcome: Adequate for discharge Goal: Knowledge of protocol requirements 10/31/2022 1545 by Shannon Pugh RN Outcome: Resolved 10/31/2022 1053 by Shannon Pugh RN Outcome: Adequate for discharge 10/31/2022 1051 by Shannon Pugh RN Outcome: Adequate for discharge Problem: Bowel Function - Altered Goal: Return to baseline elimination pattern 10/31/2022 1545 by Shannon Pugh RN Outcome: Resolved 10/31/2022 1053 by Shannon Pugh RN Outcome: Adequate for discharge 10/31/2022 1051 by Shannon Pugh RN Outcome: Adequate for discharge [facility] 2022-10-31 10:54:01 Problem: Pain Goal: Control of pain at or below patient's documented comfort goal 10/31/2022 1053 by Shannon Pugh RN Outcome: Adequate for discharge 10/31/2022 1051 by Shannon Pugh RN Outcome: Adequate for discharge Problem: Anxiety related to research protocol(s) Goal: Alleviation of anxiety 10/31/2022 1053 by Shannon Pugh RN Outcome: Adequate for discharge 10/31/2022 1051 by Shannon Pugh RN Outcome: Progressing as expected Goal: Subject will follow regular sleep pattern. 10/31/2022 1053 by Shannon Pugh RN Outcome: Adequate for discharge 10/31/2022 1051 by Shannon Pugh RN Outcome: Adequate for discharge Goal: Knowledge of protocol requirements 10/31/2022 1053 by Shannon Pugh RN Outcome: Adequate for discharge 10/31/2022 1051 by Shannon Pugh RN Outcome: Adequate for discharge Problem: Bowel Function - Altered Goal: Return to baseline elimination pattern 10/31/2022 1053 by Shannon Pugh RN Outcome: Adequate for discharge 10/31/2022 1051 by Shannon Pugh RN Outcome: Adequate for discharge [facility] 2022-10-30 18:33:47 Problem: Pain Goal: Control of pain at or below patient's documented comfort goal Outcome: Progressing as expected Problem: Anxiety related to research protocol(s) Goal: Alleviation of anxiety Outcome: Progressing as expected Goal: Subject will follow regular sleep pattern. Outcome: Progressing as expected Goal: Knowledge of protocol requirements Outcome: Progressing as expected Problem: Bowel Function - Altered Goal: Return to baseline elimination pattern Outcome: Progressing as expected [facility] 2022-10-29 10:52:55 Patient was identified with name and date of during prescreening call. Procedure was verified. Discussed preop instructions with pt. Nothing by mouth after midnight night before procedure to include gum, mints, hard candy, suckers, cough drops, and dipping tobacco. Pt advised clear liquids are allowed up until 2 hours prior to arrival time. Pt was advised to have a responsible adult with them day of procedure, who must stay on location and take pt home. Pt may use medical transportation uber, lyft, taxi etc only if responsible person over the age of 18 is with the pt. Pt may not drive self home. Wear comfortable clothing and leave valuables at home. Address is [address] [place] [address] in [place]. If taking insulin patient is to take one half of normal evening dose day prior to procedure. Pt to follow physician instruction regarding blood thinners and NSAIDS. Pt verbalizes understanding. Covid/travel exposure and vaccination recommendations addressed with patient. Arrival time of 0930 given. My Chatterjee RN [facility] 2022-10-28 21:48:41 error AN-ANESTHESIOLOGY ANESTHESIOLOGIST [facility] 2021-06-13 17:01:36 EXAM: Brain/Neck CTA DATE: 06/13/2021 15:01 [facility] . ORDERING PHYSICIAN: Ti Schwarz DO CLINICAL INDICATION: - TIA/headache; TECHNIQUE Rapid acquisition spiral images were obtained following the intravenous administration of 100 cc Omnipaque. 3D MIP reconstructions were performed. . This exam was performed according to our departmental dose-optimization protocol, which includes automated exposure control, adjustment of the mA and/or kV according to patient size and/or use of iterative reconstruction technique. DLP: 738 mGy-cm This exam was performed according to our departmental dose-optimization protocol, which includes automated exposure control, adjustment of the mA and/or kV according to patient size and/or use of iterative reconstruction technique. COMPARISON: 06/13/[address] DISCUSSION: CTA NECK: Aortic arch: Bovine anatomy. No atherosclerosis. No great vessel origin stenosis. Left carotid system: The common carotid artery, carotid bifurcation, and internal carotid artery have normal course, caliber, and contour without atherosclerosis or hemodynamically significant stenosis by NASCET criteria. Estimated carotid bifurcation stenosis is 0%. Right carotid system: The common carotid artery, carotid bifurcation, and internal carotid artery have normal course, caliber, and contour without atherosclerosis or hemodynamically significant stenosis by NASCET criteria. Estimated carotid bifurcation stenosis is 0%. Vertebral arteries: Codominant system. Normal course, caliber, and contour without atherosclerosis or stenosis>] NONVASCULAR TISSUES: Suprahyoid Neck: The oropharynx, oral cavity, parapharyngeal space, and retropharyngeal space are normal. Infrahyoid Neck: The valleculae and piriform sinuses are normal. The larynx, hypopharynx, epiglottis and supraglottis are normal. Lymph nodes: No lymphadenopathy. Salivary glands: No mass lesion, inflammatory change, calcification, or sign of ductal obstruction. Thyroid: Within normal limits. Subcutaneous tissues: Within normal limits. Regional skeleton: The cervical pedicles are short. Patient status post ACDF between C4 and C6 with anterior fusion plate and vertebral screws. Lung apices: Within normal limits. CTA BRAIN: Distal Internal carotid arteries: Mild calcified disease without flow-limiting stenosis or aneurysm. [place]: Standard configuration without proximal stenosis or aneurysm. Anterior cerebral arteries: No focal stenosis or aneurysm. Middle cerebral arteries: No focal stenosis or aneurysm Posterior cerebral arteries: No focal stenosis or aneurysm. Vertebrobasilar circulation: The intradural vertebral arteries, basilar artery, and all cerebellar branches are patent without focal stenosis or aneurysm. Veins: The major dural venous sinus, cortical and deep cerebral veins are patent. IMPRESSION: 1. Brain CTA: * No major branch occlusion, flow limiting stenosis, or aneurysm is identified intracranially. * Patent dural venous sinuses and major cortical veins 2. Neck CTA: * No evidence of hemodynamically significant cervical carotid or vertebral stenosis All quantitative and qualitative assessments of carotid bifurcation and proximal internal carotid artery stenosis are made at referencing the distal internal carotid artery (NASCET criteria). [facility] 2021-06-13 17:01:36 EXAM: Brain/Neck CTA DATE: 06/13/2021 15:01 [facility] . ORDERING PHYSICIAN: Ti Schwarz DO CLINICAL INDICATION: - TIA/headache; TECHNIQUE Rapid acquisition spiral images were obtained following the intravenous administration of 100 cc Omnipaque. 3D MIP reconstructions were performed. . This exam was performed according to our departmental dose-optimization protocol, which includes automated exposure control, adjustment of the mA and/or kV according to patient size and/or use of iterative reconstruction technique. DLP: 738 mGy-cm This exam was performed according to our departmental dose-optimization protocol, which includes automated exposure control, adjustment of the mA and/or kV according to patient size and/or use of iterative reconstruction technique. COMPARISON: 06/13/[address] DISCUSSION: CTA NECK: Aortic arch: Bovine anatomy. No atherosclerosis. No great vessel origin stenosis. Left carotid system: The common carotid artery, carotid bifurcation, and internal carotid artery have normal course, caliber, and contour without atherosclerosis or hemodynamically significant stenosis by NASCET criteria. Estimated carotid bifurcation stenosis is 0%. Right carotid system: The common carotid artery, carotid bifurcation, and internal carotid artery have normal course, caliber, and contour without atherosclerosis or hemodynamically significant stenosis by NASCET criteria. Estimated carotid bifurcation stenosis is 0%. Vertebral arteries: Codominant system. Normal course, caliber, and contour without atherosclerosis or stenosis>] NONVASCULAR TISSUES: Suprahyoid Neck: The oropharynx, oral cavity, parapharyngeal space, and retropharyngeal space are normal. Infrahyoid Neck: The valleculae and piriform sinuses are normal. The larynx, hypopharynx, epiglottis and supraglottis are normal. Lymph nodes: No lymphadenopathy. Salivary glands: No mass lesion, inflammatory change, calcification, or sign of ductal obstruction. Thyroid: Within normal limits. Subcutaneous tissues: Within normal limits. Regional skeleton: The cervical pedicles are short. Patient status post ACDF between C4 and C6 with anterior fusion plate and vertebral screws. Lung apices: Within normal limits. Distal Internal carotid arteries: Mild calcified disease without flow-limiting stenosis or aneurysm. [place]: Standard configuration without proximal stenosis or aneurysm. Anterior cerebral arteries: No focal stenosis or aneurysm. Middle cerebral arteries: No focal stenosis or aneurysm Posterior cerebral arteries: No focal stenosis or aneurysm. Vertebrobasilar circulation: The intradural vertebral arteries, basilar artery, and all cerebellar branches are patent without focal stenosis or aneurysm. Veins: The major dural venous sinus, cortical and deep cerebral veins are patent. 1. Brain CTA: * No major branch occlusion, flow limiting stenosis, or aneurysm is identified intracranially. * Patent dural venous sinuses and major cortical veins * No evidence of hemodynamically significant cervical carotid or vertebral stenosis proximal internal carotid artery stenosis are made at referencing the distal internal carotid artery (NASCET criteria). [facility] 2021-06-13 16:07:18 PATIENT NAME: ADRIANNE CAROLINA : 1980; Age: 40 years y/o Female MR: [id number] STUDY: Brain wo contrast MRI 06/13/2021 15:01 [facility] ORDERING PHYSICIAN: Ti Schwarz DO CLINICAL INDICATION: - TIA/headache; COMPARISON: 06/13/[address] TECHNIQUE: Multiplanar noncontrast MRI of the brain is performed. FINDINGS: BRAIN PARENCHYMA: There is no hemorrhage, mass lesion, extra axial collection, cerebral edema, or mass effect. Diffusion sequences are normal. Is mild frontal lobe cortical volume loss. There is no focal hayes or white matter signal abnormality. The cerebellar tonsils are above foramen magnum. The pituitary gland is age-appropriate. CEREBELLOPONTINE REGIONS AND SKULL BASE: The cerebellopontine angles appear unremarkable. No skull base abnormality is seen. VENTRICLES/SULCI/CISTERNS: The ventricles are normal in size and configuration. The basal cisterns are patent. VISUALIZED VESSELS: Major intracranial flow voids are preserved. ORBITS, VISUALIZED PARANASAL SINUSES AND MASTOIDS: Paranasal sinuses are clear. The mastoid air cells are clear. No orbital pathology is seen. IMPRESSION: * No acute intracranial findings, ischemic or otherwise [facility] 2021-06-13 16:07:18 PATIENT NAME: ADRIANNE CAROLINA : 1980; Age: 40 years y/o Female MR: [id number] STUDY: Brain wo contrast MRI 06/13/2021 15:01 [facility] ORDERING PHYSICIAN: Ti Bib Sandie, DO CLINICAL INDICATION: - TIA/headache; COMPARISON: 06/13/[address] TECHNIQUE: Multiplanar noncontrast MRI of the brain is performed. FINDINGS: BRAIN PARENCHYMA: There is no hemorrhage, mass lesion, extra axial collection, cerebral edema, or mass effect. Diffusion sequences are normal. Is mild frontal lobe cortical volume loss. There is no focal hayes or white matter signal abnormality. The cerebellar tonsils are above foramen magnum. The pituitary gland is age-appropriate. CEREBELLOPONTINE REGIONS AND SKULL BASE: The cerebellopontine angles appear unremarkable. No skull base abnormality is seen. VENTRICLES/SULCI/CISTERNS: The ventricles are normal in size and configuration. The basal cisterns are patent. VISUALIZED VESSELS: Major intracranial flow voids are preserved. ORBITS, VISUALIZED PARANASAL SINUSES AND MASTOIDS: Paranasal sinuses are clear. The mastoid air cells are clear. No orbital pathology is seen. IMPRESSION: * No acute intracranial findings, ischemic or otherwise [facility] 2021-06-13 13:32:27 EXAM: CT ABDOMEN/PELVIS WITHOUT CONTRAST DATE: 06/13/2021 13:04 [facility] . ORDERING PHYSICIAN: See Cohen MD CLINICAL INDICATION: - rlq pain, recent injection for nerve pain; TECHNIQUE: Volumetric acquisition of abdomen from the level of the domes of the diaphragm to the symphysis pubis using 5mm collimation . Axial and coronal images were reviewed. This exam was performed according to our departmental dose-optimization protocol, which includes automated exposure control, adjustment of the mA and/or kV according to patient size and/or use of iterative reconstruction technique. DLP - 411 mGy-cm COMPARISON: 06/28/2014 CT abdomen pelvis FINDINGS: Lung bases: Unremarkable . Heart: Unremarkable where visualized. Solid organ evaluation is limited without the use of IV contrast. Within that context, the findings are as follow: Liver: Unremarkable noncontrast evaluation. Spleen: Unremarkable noncontrast evaluation. Gallbladder/biliary tree: Cholecystectomy Pancreas: Unremarkable noncontrast evaluation Adrenal glands:Unremarkable noncontrast evaluation Kidneys: Unremarkable noncontrast evaluation Urinary bladder: Unremarkable. GI tract: -- Rectum: Unremarkable. -- Colon: Diffusely stool-filled. There is no mucosal thickening. -- Appendix: Appendectomy. -- Small bowel: Unremarkable. -- Stomach: Unremarkable. -- GE junction: Unremarkable Mesentery: Unremarkable. Reproductive organs: Hysterectomy. There are no adnexal masses.. Lymph Nodes: Unremarkable noncontrast evaluation Vasculature: Unremarkable noncontrast evaluation Skeleton: No acute findings. Subcutaneous tissues: Unremarkable. IMPRESSION: 1. No acute findings within the abdomen or pelvis 2. No clear evidence of complications from recent procedures. There are no fluid collections present. [facility] 2021-06-13 13:32:27 PATIENT NAME: ADRIANNE CAROLINA : 1980; Age: 40 years y/o Female MR: [id number] STUDY: Brain wo contrast CT 06/13/2021 11:35 [facility] ORDERING PHYSICIAN: See Cohen MD CLINICAL INDICATION: - dizziness, right facial numbness, right arm weakness; COMPARISON: August 06, [address] TECHNIQUE: Noncontrast images of the brain are obtained from the skull base to the vertex. Axial, sagittal, and coronal images are interpreted. DLP: 907 mGy-cm This exam was performed according to our departmental dose-optimization protocol, which includes automated exposure control, adjustment of the mA and/or kV according to patient size and/or use of iterative reconstruction technique. FINDINGS: BRAIN PARENCHYMA: There is no evidence of cerebral edema, mass, mass effect, hemorrhage, or recent cortical infarct. The brain volume is age appropriate. The isabel-white distinction is maintained. CEREBELLOPONTINE REGIONS AND SKULL BASE: The cerebellopontine angles appear unremarkable. No skull base abnormality is seen. VENTRICLES/SULCI/CISTERNS: The ventricles are normal in size and configuration. The cortical sulci and basal cisterns are patent. ORBITS, VISUALIZED PARANASAL SINUSES AND MASTOIDS: Paranasal sinuses are clear. The mastoid air cells are clear. No orbital pathology is seen. SKULL/CALVARIUM: There is no skull fracture or focal lesion. IMPRESSION: No acute intracranial finding or substantial change in the appearance of the brain compared to previous study [facility] 2021-06-13 13:32:27 EXAM: CT ABDOMEN/PELVIS WITHOUT CONTRAST DATE: 06/13/2021 13:04 [facility] [facility] . ORDERING PHYSICIAN: See Cohen MD CLINICAL INDICATION: - rlq pain, recent injection for nerve pain; TECHNIQUE: Volumetric acquisition of abdomen from the level of the domes of the diaphragm to the symphysis pubis using 5mm collimation . Axial and coronal images were reviewed. This exam was performed according to our departmental dose-optimization protocol, which includes automated exposure control, adjustment of the mA and/or kV according to patient size and/or use of iterative reconstruction technique. DLP - 411 mGy-cm COMPARISON: 06/28/2014 CT abdomen pelvis FINDINGS: Lung bases: Unremarkable . Heart: Unremarkable where visualized. Solid organ evaluation is limited without the use of IV contrast. Within that context, the findings are as follow: Liver: Unremarkable noncontrast evaluation. Spleen: Unremarkable noncontrast evaluation. Gallbladder/biliary tree: Cholecystectomy Pancreas: Unremarkable noncontrast evaluation Adrenal glands:Unremarkable noncontrast evaluation Kidneys: Unremarkable noncontrast evaluation Urinary bladder: Unremarkable. GI tract: -- Rectum: Unremarkable. -- Colon: Diffusely stool-filled. There is no mucosal thickening. -- Appendix: Appendectomy. -- Small bowel: Unremarkable. -- Stomach: Unremarkable. -- GE junction: Unremarkable Mesentery: Unremarkable. Reproductive organs: Hysterectomy. There are no adnexal masses.. Lymph Nodes: Unremarkable noncontrast evaluation Vasculature: Unremarkable noncontrast evaluation Skeleton: No acute findings. Subcutaneous tissues: Unremarkable. IMPRESSION: 1. No acute findings within the abdomen or pelvis 2. No clear evidence of complications from recent procedures. There are no fluid collections present. [facility] 2021-06-13 13:32:27 PATIENT NAME: ADRIANNE CAROLINA : 1980; Age: 40 years y/o Female MR: [id number] STUDY: Brain wo contrast CT 06/13/2021 11:35 [employer] ORDERING PHYSICIAN: See Cohen MD CLINICAL INDICATION: - dizziness, right facial numbness, right arm weakness; COMPARISON: August 06, [address] TECHNIQUE: Noncontrast images of the brain are obtained from the skull base to the vertex. Axial, sagittal, and coronal images are interpreted. DLP: 907 mGy-cm This exam was performed according to our departmental dose-optimization protocol, which includes automated exposure control, adjustment of the mA and/or kV according to patient size and/or use of iterative reconstruction technique. FINDINGS: BRAIN PARENCHYMA: There is no evidence of cerebral edema, mass, mass effect, hemorrhage, or recent cortical infarct. The brain volume is age appropriate. The isabel-white distinction is maintained. CEREBELLOPONTINE REGIONS AND SKULL BASE: The cerebellopontine angles appear unremarkable. No skull base abnormality is seen. VENTRICLES/SULCI/CISTERNS: The ventricles are normal in size and configuration. The cortical sulci and basal cisterns are patent. ORBITS, VISUALIZED PARANASAL SINUSES AND MASTOIDS: Paranasal sinuses are clear. The mastoid air cells are clear. No orbital pathology is seen. SKULL/CALVARIUM: There is no skull fracture or focal lesion. IMPRESSION: No acute intracranial finding or substantial change in the appearance of the brain compared to previous study [facility] 2021-06-13 12:58:22 STUDY: Chest 1view DX HISTORY: - dizziness. COMPARISON: 04/15/2016 FINDINGS: The lungs are clear. No consolidation is seen. No pleural effusion is seen. No pneumothorax is seen. Heart is normal in size. No acute osseous abnormality is seen. IMPRESSION: No acute cardiopulmonary abnormality. [facility] 2021-06-13 12:58:22 STUDY: Chest 1view DX HISTORY: - dizziness. COMPARISON: 04/15/2016 FINDINGS: The lungs are clear. No consolidation is seen. No pleural effusion is seen. No pneumothorax is seen. Heart is normal in size. No acute osseous abnormality is seen. IMPRESSION: No acute cardiopulmonary abnormality. [facility] 2021-01-08 09:51:56 Yes. I will fill it and we will discuss at next appt. . [facility] [email or web address] 2021-01-07 18:58:04 Can she come in this thu at 11:20 or Thursday at 1:40 to discuss this and other things? . [facility] [email or web address] 2021-01-07 10:01:37 Please review and sign if appropriate. Requested Prescriptions Pending Prescriptions Disp Refills ASCOMP WITH CODEINE per capsule [Pharmacy Med Name: ASCOMP WITH CODEINE CAPSULE] 60 capsule Sig: TAKE 1 CAPSULE BY MOUTH EVERY 4 (FOUR) HOURS NEEDED FOR PAIN. INDICATIONS: CHRONIC PAIN, MIGRAINE Rocio Martínez RN [facility] 2020-08-06 11:40:27 Brain Stroke wo contrast CT 08/06/2020 10:56 CDT INDICATION: - sudden onset, severe R temporal headche 0900 COMPARISON: 06/23/2014 CT TECHNIQUE: Routine axial images of the brain were obtained with coronal and sagittal reformats. The DLP is 885 mGy*cm. This exam was performed according to our departmental dose-optimization protocol, which includes automated exposure control, adjustment of the mA and/or kV according to patient size and/or use of iterative reconstruction technique. IV contrast: None. FINDINGS: BRAIN: There is no evidence of cerebral edema, mass, mass effect, hemorrhage, recent infarct. The brain volume is age appropriate. The isabel-white distinction is maintained. VENTRICLES: The ventricles are normal in size and configuration. SKULL: No skull abnormality is seen. ORBITS, VISUALIZED PARANASAL SINUSES AND MASTOIDS: Visualized paranasal sinuses are clear. The mastoid air cells are clear. No orbital pathology is seen. ASPECTS: 10 Laterality: none Caudate: normal Internal capsule: normal Lenticular: normal Insula: normal M1: normal M2: normal M3: normal M4: normal M5: normal M6: normal IMPRESSION: 1. No sign of acute cortical infarct or parenchymal hemorrhage. ASPECTS score as above. Result was given via [employer] text to Tye Oshea MD on 08/06/2020 12:19 CDT. [CRIT] [facility] 2020-08-06 11:40:27 Brain Stroke wo contrast CT 08/06/2020 10:56 CDT INDICATION: - sudden onset, severe R temporal headche 09 COMPARISON: 06/23/2014 CT TECHNIQUE: Routine axial images of the brain were obtained with coronal and sagittal reformats. The DLP is 885 mGy*cm. This exam was performed according to our departmental dose-optimization protocol, which includes automated exposure control, adjustment of the mA and/or kV according to patient size and/or use of iterative reconstruction technique. IV contrast: None. FINDINGS: BRAIN: There is no evidence of cerebral edema, mass, mass effect, hemorrhage, recent infarct. The brain volume is age appropriate. The isabel-white distinction is maintained. VENTRICLES: The ventricles are normal in size and configuration. SKULL: No skull abnormality is seen. ORBITS, VISUALIZED PARANASAL SINUSES AND MASTOIDS: Visualized paranasal sinuses are clear. The mastoid air cells are clear. No orbital pathology is seen. ASPECTS: 10 Laterality: none Caudate: normal Internal capsule: normal Lenticular: normal Insula: normal M1: normal M2: normal M3: normal M4: normal M5: normal M6: normal IMPRESSION: 1. No sign of acute cortical infarct or parenchymal hemorrhage. ASPECTS score as above. Result was given via [employer] text to Tye Oshea MD on 08/06/2020 12:19 CDT. [CRIT] [facility] 2020-02-27 19:19:52 PROCEDURE INFORMATION: Exam: MR Left Lower Extremity Joint Without Contrast, Knee Exam date and time: 02/27/2020 7:21 PM Age: 39 years old Clinical indication: Pain in left knee; Additional info: M25.562 pain in left knee/m25.562 pain in left knee TECHNIQUE: Imaging protocol: MR of the Left lower extremity joint without contrast. Exam focused on the knee. COMPARISON: KNEE WO CONTRAST MRI, LEFT 06/13/2019 5:34 PM FINDINGS: Bones and cartilage: Small area deep fissuring involving the medial patellar facet. Otherwise the patellofemoral compartment cartilage appear intact. Medial and lateral compartment cartilage are intact. Small joint effusion. Medial meniscus: Mild intrasubstance signal medial meniscus without discrete tear. Lateral meniscus: Unremarkable. No tear. Anterior cruciate ligament: Intact. No tear. Posterior cruciate ligament: Intact. No tear. Medial capsule and supporting structures: Unremarkable. No tear. Lateral capsule and supporting structures: Unremarkable. No tear. Extensor mechanism of knee: Quadriceps and patellar tendons intact. Muscles: Unremarkable. Soft tissues: No fluid collections or mass. IMPRESSION: 1. Small focus of deep chondral fissuring medial patellar facet. 2. No acute ligamentous or meniscal injury. 3. Small joint effusion Marcello Iqbal MD On 02/28/2020 12:46:05; [id number] [facility] 2020-02-27 19:19:52 PROCEDURE INFORMATION: Exam: MR Left Lower Extremity Joint Without Contrast, Knee Exam date and time: 02/27/2020 7:21 PM Age: 39 years old Clinical indication: Pain in left knee; Additional info: M25.562 pain in left knee/m25.562 pain in left knee TECHNIQUE: Imaging protocol: MR of the Left lower extremity joint without contrast. Exam focused on the knee. COMPARISON: KNEE WO CONTRAST MRI, LEFT 06/13/2019 5:34 PM FINDINGS: Bones and cartilage: Small area deep fissuring involving the medial patellar facet. Otherwise the patellofemoral compartment cartilage appear intact. Medial and lateral compartment cartilage are intact. Small joint effusion. Medial meniscus: Mild intrasubstance signal medial meniscus without discrete tear. Lateral meniscus: Unremarkable. No tear. Anterior cruciate ligament: Intact. No tear. Posterior cruciate ligament: Intact. No tear. Medial capsule and supporting structures: Unremarkable. No tear. Lateral capsule and supporting structures: Unremarkable. No tear. Extensor mechanism of knee: Quadriceps and patellar tendons intact. Muscles: Unremarkable. Soft tissues: No fluid collections or mass. IMPRESSION: 1. Small focus of deep chondral fissuring medial patellar facet. 2. No acute ligamentous or meniscal injury. 3. Small joint effusion Marcello Iqbal MD On 02/28/2020 12:46:05; [id number] [facility] 2019-07-06 13:38:10 Patient's need/request has been addressed in a subsequent encounter. Casandra Kathleen MA [facility] 2019-06-13 17:35:00 PROCEDURE INFORMATION: Exam: MR Right Lower Extremity Joint Without Contrast, Knee Exam date and time: 06/13/2019 5:34 PM Age: 38 years old Clinical indication: Bilateral primary osteoarthritis of knee; Additional info: M17.0 bilateral primary osteoarthritis of knee/m17.0 bilateral primary osteoarthritis of knee TECHNIQUE: Imaging protocol: MR of the Right lower extremity joint without contrast. Exam focused on the knee. COMPARISON: KNEE WO CONTRAST MRI, RIGHT 05/16/2015 4:36 PM FINDINGS: Bones and cartilage: Unremarkable. No bone abnormalities. Articular cartilage normal. Joint spaces: No joint effusion. Medial meniscus: Unremarkable. No tear. Lateral meniscus: Unremarkable. No tear. Anterior cruciate ligament: Unremarkable. No tear. Posterior cruciate ligament: Unremarkable. No tear. Medial capsule and supporting structures: Unremarkable. No tear. Lateral capsule and supporting structures: Unremarkable. No tear. Extensor mechanism of knee: Unremarkable. No tear. Muscles: Unremarkable. Soft tissues: Unremarkable. IMPRESSION: Unremarkable MR examination of right knee without internal derangement. Joshua Capps MD On 06/14/2019 08:38:02; [id number] [facility] 2019-06-13 17:35:00 PROCEDURE INFORMATION: Exam: MR Right Lower Extremity Joint Without Contrast, Knee Exam date and time: 06/13/2019 5:34 PM Age: 38 years old Clinical indication: Bilateral primary osteoarthritis of knee; Additional info: M17.0 bilateral primary osteoarthritis of knee/m17.0 bilateral primary osteoarthritis of knee TECHNIQUE: Imaging protocol: MR of the Right lower extremity joint without contrast. Exam focused on the knee. COMPARISON: KNEE WO CONTRAST MRI, RIGHT 05/16/2015 4:36 PM FINDINGS: Bones and cartilage: Unremarkable. No bone abnormalities. Articular cartilage normal. Joint spaces: No joint effusion. Medial meniscus: Unremarkable. No tear. Lateral meniscus: Unremarkable. No tear. Anterior cruciate ligament: Unremarkable. No tear. Posterior cruciate ligament: Unremarkable. No tear. Medial capsule and supporting structures: Unremarkable. No tear. Lateral capsule and supporting structures: Unremarkable. No tear. Extensor mechanism of knee: Unremarkable. No tear. Muscles: Unremarkable. Soft tissues: Unremarkable. IMPRESSION: Unremarkable MR examination of right knee without internal derangement. Joshua Capps MD On 06/14/2019 08:38:02; [id number] [facility] 2019-06-13 17:30:00 PROCEDURE INFORMATION: Exam: MR Left Lower Extremity Joint Without Contrast, Knee Exam date and time: 06/13/2019 5:34 PM Age: 38 years old Clinical indication: Bilateral primary osteoarthritis of knee; Additional info: M17.0 bilateral primary osteoarthritis of knee/m17.0 bilateral primary osteoarthritis of knee TECHNIQUE: Imaging protocol: MR of the Left lower extremity joint without contrast. Exam focused on the knee. COMPARISON: CR KNEE 3 VIEWS BILATERAL DX 04/08/2019 3:26 PM FINDINGS: Bones and cartilage: Unremarkable. No bone abnormalities. Articular cartilage normal. Joint spaces: Trace volume joint fluid is either within physiologic limits versus representing trace joint effusion. Medial meniscus: Unremarkable. No tear. Lateral meniscus: Unremarkable. No tear. Anterior cruciate ligament: Unremarkable. No tear. Posterior cruciate ligament: Unremarkable. No tear. Medial capsule and supporting structures: Unremarkable. No tear. Lateral capsule and supporting structures: Unremarkable. No tear. Extensor mechanism of knee: Unremarkable. No tear. Muscles: Unremarkable. Soft tissues: Unremarkable. IMPRESSION: 1. No evidence of left knee internal derangement. 2. Trace volume joint fluid is either within physiologic limits versus representing trace joint effusion. Joshua Capps MD On 06/14/2019 08:55:40; [id number] [facility] 2019-06-13 17:30:00 PROCEDURE INFORMATION: Exam: MR Left Lower Extremity Joint Without Contrast, Knee Exam date and time: 06/13/2019 5:34 PM Age: 38 years old Clinical indication: Bilateral primary osteoarthritis of knee; Additional info: M17.0 bilateral primary osteoarthritis of knee/m17.0 bilateral primary osteoarthritis of knee TECHNIQUE: Imaging protocol: MR of the Left lower extremity joint without contrast. Exam focused on the knee. COMPARISON: CR KNEE 3 VIEWS BILATERAL DX 04/08/2019 3:26 PM FINDINGS: Bones and cartilage: Unremarkable. No bone abnormalities. Articular cartilage normal. Joint spaces: Trace volume joint fluid is either within physiologic limits versus representing trace joint effusion. Medial meniscus: Unremarkable. No tear. Lateral meniscus: Unremarkable. No tear. Anterior cruciate ligament: Unremarkable. No tear. Posterior cruciate ligament: Unremarkable. No tear. Medial capsule and supporting structures: Unremarkable. No tear. Lateral capsule and supporting structures: Unremarkable. No tear. Extensor mechanism of knee: Unremarkable. No tear. Muscles: Unremarkable. Soft tissues: Unremarkable. IMPRESSION: 1. No evidence of left knee internal derangement. 2. Trace volume joint fluid is either within physiologic limits versus representing trace joint effusion. Joshua Capps MD On 06/14/2019 08:55:40; [id number] [facility] 2019-04-08 15:13:00 PROCEDURE INFORMATION: Exam: XR Right Knee Exam date and time: 04/08/2019 3:26 PM Age: 38 years old Clinical indication: Pain in right knee; Pain in left knee; Additional info: /m25.562 pain in left knee, m25.561 pain in right knee TECHNIQUE: Imaging protocol: XR Right knee. Views: 3 views. AP [place] Lateral COMPARISON: CR KNEE SERIES 3 VIEWS DX, LEFT 07/17/2015 10:38 PM FINDINGS: Bones/joints: No acute fractures. No cortical erosions or other osseous lesions. No joint dislocations or subluxations. Soft tissues: The soft tissues are unremarkable. Notes: If there is further concern, recommend follow-up radiographs or MRI for complete assessment. IMPRESSION: No acute osseous abnormalities. PROCEDURE INFORMATION: Exam: XR Left Knee Exam date and time: 04/08/2019 3:26 PM Age: 38 years old Clinical indication: Pain in right knee; Pain in left knee; Additional info: /m25.562 pain in left knee, m25.561 pain in right knee TECHNIQUE: Imaging protocol: XR Left knee. Views: 3 views. AP [place]que Lateral COMPARISON: CR KNEE SERIES 3 VIEWS DX, LEFT 07/17/2015 10:38 PM FINDINGS: Bones/joints: No acute fractures. No cortical erosions or other osseous lesions. No joint dislocations or subluxations. Soft tissues: The soft tissues are unremarkable. Notes: If there is further concern, recommend follow-up radiographs or MRI for complete assessment. IMPRESSION: No acute osseous abnormalities. Caleb Pulido MD On 04/08/2019 20:09:16; [id number] [facility] 2019-04-08 15:13:00 PROCEDURE INFORMATION: Exam: XR Right Knee Exam date and time: 04/08/2019 3:26 PM Age: 38 years old Clinical indication: Pain in right knee; Pain in left knee; Additional info: /m25.562 pain in left knee, m25.561 pain in right knee TECHNIQUE: Imaging protocol: XR Right knee. Views: 3 views. AP [place]ilque Lateral COMPARISON: CR KNEE SERIES 3 VIEWS DX, LEFT 07/17/2015 10:38 PM FINDINGS: Bones/joints: No acute fractures. No cortical erosions or other osseous lesions. No joint dislocations or subluxations. Soft tissues: The soft tissues are unremarkable. Notes: If there is further concern, recommend follow-up radiographs or MRI for complete assessment. IMPRESSION: No acute osseous abnormalities. PROCEDURE INFORMATION: Exam: XR Left Knee Exam date and time: 04/08/2019 3:26 PM Age: 38 years old Clinical indication: Pain in right knee; Pain in left knee; Additional info: /m25.562 pain in left knee, m25.561 pain in right knee TECHNIQUE: Imaging protocol: XR Left knee. Views: 3 views. AP [place]ilque Lateral COMPARISON: CR KNEE SERIES 3 VIEWS DX, LEFT 07/17/2015 10:38 PM FINDINGS: Bones/joints: No acute fractures. No cortical erosions or other osseous lesions. No joint dislocations or subluxations. Soft tissues: The soft tissues are unremarkable. Notes: If there is further concern, recommend follow-up radiographs or MRI for complete assessment. IMPRESSION: No acute osseous abnormalities. Caleb Pulido MD On 04/08/2019 20:09:16; [id number] [facility] 2017-10-26 07:56:19 Rx sent in. Let patient know. [facility] [place] 2017-09-22 18:57:07 Rx sent in. Let patient know. [facility] 2016-06-04 20:11:00 EXAM: MRI of the right hand without contrast INDICATION: M65.841 Other synovitis and tenosynovitis, right hand COMPARISON: None. TECHNIQUE: Multiplanar, multisequence magnetic resonance imaging of the right hand was performed without the administration of intravenous gadolinium contrast. FINDINGS: No acute bony fracture, joint dislocation, or stress-related marrow edema is seen. Foci of blooming artifact along the dorsum of the index finger metacarpal shaft as well as along the thumb metacarpal base are seen, slightly obscuring the underlying [...] or tendon tear. 3. No tenosynovitis. SL: ROXANNE LAUREN [place] 2016-06-04 20:11:00 EXAM: MRI of the right hand without contrast INDICATION: M65.841 Other synovitis and tenosynovitis, right hand COMPARISON: None. TECHNIQUE: Multiplanar, multisequence magnetic resonance imaging of the right hand was performed without the administration of intravenous gadolinium contrast. FINDINGS: No acute bony fracture, joint dislocation, or stress-related marrow edema is seen. Foci of blooming artifact along the dorsum of the index finger metacarpal shaft as well as along the thumb metacarpal base are seen, slightly obscuring the underlying [...] or tendon tear. 3. No tenosynovitis. SL: ROXANNE LAUREN [facility] 2016-04-15 12:41:18 Chest 1view DX CLINICAL HISTORY:Chest pain COMPARISON: 11/02/2015 FINDINGS/IMPRESSION: Limited AP portable study. Clothing artifact. Support Lines/Devices: none Lungs: Minimal bibasilar atelectasis. No consolidation or effusion. No pneumothorax is evident. Cardiomediastinum: Cardiomediastinal silhouette is stable. Bone and Soft Tissues: No significant abnormality is evident. Surgical clips in the right upper abdomen suggest previous cholecystectomy. Multiple EKG leads and other wires project over the patient's chest. SL: [id number] [facility] 2016-04-15 12:41:18 Chest 1view DX CLINICAL HISTORY:Chest pain COMPARISON: 11/02/2015 FINDINGS/IMPRESSION: Limited AP portable study. Clothing artifact. Support Lines/Devices: none Lungs: Minimal bibasilar atelectasis. No consolidation or effusion. No pneumothorax is evident. Cardiomediastinum: Cardiomediastinal silhouette is stable. Bone and Soft Tissues: No significant abnormality is evident. Surgical clips in the right upper abdomen suggest previous cholecystectomy. Multiple EKG leads and other wires project over the patient's chest. SL: [id number] [facility] 2015-11-02 20:26:34 Study: Chest 1view DX Clinical Indication: Chest pain Comparison: Chest x-ray from 07/16/2015 FINDINGS: The cardiac silhouette is normal in size. The lungs are clear and without consolidation or congestion. No pleural effusion or pneumothorax is seen. The osseous structures are unremarkable. IMPRESSION: No acute cardiopulmonary disease. SL: [facility] 2015-11-02 20:26:34 Study: Chest 1view DX Clinical Indication: Chest pain Comparison: Chest x-ray from 07/16/2015 FINDINGS: The cardiac silhouette is normal in size. The lungs are clear and without consolidation or congestion. No pleural effusion or pneumothorax is seen. The osseous structures are unremarkable. IMPRESSION: No acute cardiopulmonary disease. SL: [facility] 2015-07-18 10:41:50 Clinical Indication: Coughing patient with allergic reaction and coughing. History of headaches, anxiety, seizures and bipolar disorder. Comparison: Chest x-ray July 16, 2015 TECHNIQUE: Sequential trans-axial images were obtained thru the chest and upper abdomen without iodinated contrast. Coronal and sagittal reconstructions were obtained. Dose: DLP = 456.71 mGy-cm FINDINGS: LUNG PARENCHYMA AND PLEURA: There are no lung nodules. Diffuse bilateral interstitial reticulations are seen with subtle bilateral groundglass opacities. Small bilateral pleural effusions are seen layering out posteriorly in the lower lobes measuring [...] hypersensitivity lung and nonspecific interstitial pneumonitis. SL: [id number] [facility] 2015-07-18 10:41:50 Clinical Indication: Coughing patient with allergic reaction and coughing. History of headaches, anxiety, seizures and bipolar disorder. Comparison: Chest x-ray July 16, 2015 TECHNIQUE: Sequential trans-axial images were obtained thru the chest and upper abdomen without iodinated contrast. Coronal and sagittal reconstructions were obtained. Dose: DLP = 456.71 mGy-cm FINDINGS: LUNG PARENCHYMA AND PLEURA: There are no lung nodules. Diffuse bilateral interstitial reticulations are seen with subtle bilateral groundglass opacities. Small bilateral pleural effusions are seen layering out posteriorly in the lower lobes measuring [...] hypersensitivity lung and nonspecific interstitial pneumonitis. SL: [id number] [facility] 2015-07-17 22:20:00 INDICATIONS: PER PATIENT H/O OF PATELLA MOVING COMPARISONS: None FINDINGS: LEFT KNEE 3 VIEWS: AP, lateral, [...] demonstrated. IMPRESSION: 1. NO ACUTE FINDINGS. SL: LEANN [facility] 2015-07-17 22:20:00 INDICATIONS: PER PATIENT H/O OF PATELLA MOVING COMPARISONS: None FINDINGS: LEFT KNEE 3 VIEWS: AP, lateral, [...] are demonstrated. IMPRESSION: 1. NO ACUTE FINDINGS. KALPESH: LEANN [facility] 2015-07-16 18:42:24 Clinical Indication: Dyspnea. Comparison: None. FINDINGS: AP 1 view chest radiograph was [...] confluent infiltrates in the lungs. SL: [id number] [facility] 2015-07-16 18:42:24 Clinical Indication: Dyspnea. Comparison: None. FINDINGS: AP 1 view chest radiograph was [...] confluent infiltrates in the lungs. SL: [id number] [facility] 2015-06-25 17:08:37 Patient Name: ADRIANNE SANDERS : 1980; Age: 34 years y/o Female MR: [id number] Study: Knee 3 views DX 06/25/2015 3:23 PM CDT Ordering Physician: Cassi Baldwin Comparison: 05/24/2015 Clinical Indication: Right knee pain and swelling; Small joint fluid collection. Joint compartment spaces are well-maintained. No acute fracture or dislocation is noted. SL: [id number] [facility] 2015-06-25 17:08:37 Patient Name: ADRIANNE SANDERS : 1980; Age: 34 years y/o Female MR: [id number] Study: Knee 3 views DX 06/25/2015 3:23 PM CDT Ordering Physician: Cassi Baldwin Comparison: 05/24/2015 Clinical Indication: Right knee pain and swelling; Small joint fluid collection. Joint compartment spaces are well-maintained. No acute fracture or dislocation is noted. SL: [id number] [facility] 2015-06-07 10:45:26 Study: CHEST, PA AND LATERAL Clinical Indication: Z01.818 Encounter for other preprocedural examination; surgical clearance for left knee arthroscopy 06/08/2015 Comparison: Chest 06/23/2014 FINDINGS: The heart, mediastinum, lungs, pleural spaces and visualized skeleton are not remarkable. IMPRESSION: Normal chest, unchanged. SL: [id number] [facility] 2015-06-07 10:45:26 Study: CHEST, PA AND LATERAL Clinical Indication: Z01.818 Encounter for other preprocedural examination; surgical clearance for left knee arthroscopy 06/08/2015 Comparison: Chest 06/23/2014 FINDINGS: The heart, mediastinum, lungs, pleural spaces and visualized skeleton are not remarkable. IMPRESSION: Normal chest, unchanged. SL: [id number] [facility] 2015-05-24 22:13:08 Clinical history: Pain Post Trauma. Sex: Female. : 1980. Technique: 3 views of the right knee. Findings: The knee joint is normal. The patellofemoral joint is normal. There is no suprapatellar bursal articular effusion. There is no fracture or dislocation. No destructive lesion. Impression: 1. No acute skeletal abnormality. [facility] 2015-05-24 22:13:08 Clinical history: Pain Post Trauma. Sex: Female. : 1980. Technique: 3 views of the right knee. Findings: The knee joint is normal. The patellofemoral joint is normal. There is no suprapatellar bursal articular effusion. There is no fracture or dislocation. No destructive lesion. Impression: 1. No acute skeletal abnormality. [facility] 2015-05-16 17:44:59 EXAM: MR RIGHT KNEE WITHOUT CONTRAST DATE: 05/16/2015 at 1636 hours INDICATION: Sprain of anterior cruciate ligament, initially [...] chondral defect. Menisci and remaining ligaments intact. LAUREN Dias 2015-05-16 17:44:59 EXAM: MR RIGHT KNEE WITHOUT CONTRAST DATE: 05/16/2015 at 1636 hours INDICATION: Sprain of anterior cruciate ligament, initially [...] chondral defect. [place]isc[place] and remaining ligaments intact. [facility] 23[facility] CLINICAL HISTORY : See Clinic Indication , Pain and swelling EXAM : 3 views of the right knee May 07, 2015 11:38:00 PM COMPARISON : 3 views of the right knee April 13, 2015 FINDINGS : There is no acute fracture or dislocation. There is no focal soft tissue swelling. There is no joint effusion. The bony alignment is normal. IMPRESSIONS: No acute fracture or dislocation. [facility] 2015-05-07 23:38:24 CLINICAL HISTORY : See Clinic Indication , Pain and swelling EXAM : 3 views of the right knee May 07, 2015 11:38:00 PM COMPARISON : 3 views of the right knee April 13, 2015 There is no acute fracture or dislocation. There is no focal soft tissue swelling. There is no joint effusion. The bony alignment is normal. No acute fracture or dislocation. [facility] 2015-04-21 16:45:00 EXAM: MRI of the right knee without contrast. HISTORY: M25.561 Pain in right knee COMPARISON: X-rays on 04/13/2015 TECHNIQUE: Multiplanar, multisequence MRI of the right [...] joint effusion, which is within physiologic limits. [facility] 2015-04-21 16:45:00 EXAM: MRI of the right knee without contrast. HISTORY: M25.561 Pain in right knee COMPARISON: X-rays on 04/13/2015 TECHNIQUE: Multiplanar, multisequence MRI of the right [...] joint effusion, which is within physiologic limits. [facility] 2015-04-13 12:04:04 PROCEDURE: Right Knee 3 views REASON FOR EXAM: See Clinic Indication CLINICAL INDICATION: Pain and swelling COMPARISON: None. FINDINGS: Mild diffuse soft tissue swelling about the knee. No definite acute fracture or dislocation. No significant suprapatellar joint effusion is present. SL: 12 [facility] 2015-04-13 12:04:04 PROCEDURE: Right Knee 3 views REASON FOR EXAM: See Clinic Indication CLINICAL INDICATION: Pain and swelling COMPARISON: None. FINDINGS: Mild diffuse soft tissue swelling about the knee. No definite acute fracture or dislocation. No significant suprapatellar joint effusion is present. [facility] 2014-06-28 20:56:28 EXAM: CT ABDOMEN AND PELVIS WITH CONTRAST DATE:Jun 28, 2014 08:56:28 PM . CLINICAL INDICATION: Acute abdominal pain. ADDITIONAL DATA: None COMPARISON: 06/23/2014 CT abdomen pelvis Dose: DLP 604 mGy-cm TECHNIQUE: Helical acquisition of the abdomen and pelvis was obtained from the lung bases to the symphysis pubis after uneventful administration of 95 cc Omnipaque intravenous contrast in the venous phase of contrast enhancement. Axial, sagittal and coronal [...] acute abnormality in the abdomen or pelvis [facility] 2014-06-28 20:56:28 EXAM: CT ABDOMEN AND PELVIS WITH CONTRAST DATE:Jun 28, 2014 08:56:28 PM . CLINICAL INDICATION: Acute abdominal pain. COMPARISON: 06/23/2014 CT abdomen pelvis Dose: DLP 604 mGy-cm lung bases to the symphysis pubis after uneventful administration of 95 cc Omnipaque intravenous contrast in the venous phase of contrast enhancement. Axial, sagittal and coronal images were interpreted. Lung bases: Dependent atelectasis. Liver: Within normal [...] structures: Hysterectomy. Regional skeleton: Within normal limits 1. Interval resolution of colon thickening seen previously. inflammation currently, and the previously-present fecal impaction has resolved. 3. Otherwise no acute abnormality in the abdomen or pelvis [facility] 2014-06-23 10:00:00 Name: ADRIANNE SANDERS : 1980 SEX: F Ordering Physician: Kathie Bahena ED Abdomen/Pelvis IV contrast only CT [...] obstruction. there is thickening of wall of the transverse colon and descending colon which may [...] rectum and distal sigmoid colon. SL: 24 [facility] 2014-06-23 10:00:00 Name: ADRIANNE SANDERS : 1980 SEX: F Ordering Physician: Kathie Bahena wo contrast CT : Jun 23, 2014 [...] structurally normal without focal lesion, edema, midline shift, hydrocephalus, or extra-axial collection. The ventricles and cisterns are normal. The skull, orbits, mastoids and paranasal sinuses are unremarkable. IMPRESSION: Negative noncontrast CT examination of the head without stroke, hemorrhage or mass. SL: 24 [facility] 2014-06-23 10:00:00 Name: ADRIANNE SANDERS : 1980 SEX: F Ordering Physician: Kathie Bahena CLINICAL INDICATION: Abdominal pain, acute Comparison Examination: None Sequential trans-axial images of the abdomen and pelvis were obtained with a multi-detector helical CT. Coronal and sagittal reconstructions were obtained. opacification. Dose: The total exam DLP is 788.70 mGy-cm. FINDINGS: effusions. There is no evidence of interstitial lung disease. vein is normal in caliber. prior cholecystectomy. There is no extrahepatic biliary ductal dilation. abnormalities. caliber. is unremarkable. masses. There is no evidence of renal or ureteric calculi. There is no evidence of hydronephrosis. The small bowel is normal in caliber and there is no evidence of masses or obstruction. there is thickening of wall of the transverse colon and descending colon which may represent colitis. There is impacted stool within the rectum and distal sigmoid colon. The appendix is unremarkable. PELVIS: The bladder is unremarkable. LYMPH NODES: There is no evidence of mesenteric or inguinal lymphadenopathy. abdominal aorta are patent. SOFT TISSUES: There are no hernias or soft tissue masses. BONES: The visualized skeleton is unremarkable. IMPRESSION: colitis. 2. Constipation with impacted stool within the rectum and distal sigmoid colon. [facility] 2014-06-23 10:00:00 Name: ADRIANNE SANDERS : 1980 SEX: F Ordering Physician: Kathie Bahena CLINICAL INDICATION: Seizures Comparison Examination: None Axial CT images were obtained from the foramen magnum to the vertex without the use of intravenous contrast. Coronal and sagittal reconstructions reconstructions were obtained and viewed on the workstation. Dose: The total exam DLP is 1054.70 mGy-cm. The brain is structurally normal without focal lesion, edema, midline shift, hydrocephalus, or extra-axial collection. The ventricles and cisterns are normal. The skull, orbits, mastoids and paranasal sinuses are unremarkable. Negative noncontrast CT examination of the head without stroke, hemorrhage or mass. [facility] 2014-06-23 09:10:00 Name: ADRIANNE SANDERS : 1980 SEX: F Ordering Physician: Kathie Bahena Chest 1view : Jun 23, 2014 09:28:00 AM. CLINICAL INDICATION: Chest pain Comparison Examination: None FINDINGS: Portable AP chest radiograph was performed. HEART: The cardiomediastinal contours are normal on this AP view. LUNGS: Normal lung volumes are noted. There are no infiltrates or effusions. No masses are seen BONES: There are no clinically significant osseous abnormalities noted. IMPRESSION: No acute cardiopulmonary abnormality. SL: 24 [facility] 2014-06-23 09:10:00 Name: ADRIANNE SANDERS : 1980 SEX: F Ordering Physician: Kathie Bahena CLINICAL INDICATION: Chest pain Comparison Examination: None Portable AP chest radiograph was performed. HEART: The cardiomediastinal contours are normal on this AP view. masses are seen BONES: There are no clinically significant osseous abnormalities noted. No acute cardiopulmonary abnormality. [facility] 2014-05-09 18:54:33 CT chest, abdomen and pelvis with contrast CLINICAL INFORMATION: Trauma. Pain. COMPARISON: CT abdomen pelvis of 04/17/2014. TECHNIQUE: Multiple axial images of the chest, abdomen and pelvis were performed with IV contrast. No p.o. contrast was given. Chest findings: No mediastinal or substernal hematoma is present. Heart is normal without pericardial effusion. No mediastinal or hilar adenopathy. Persistent trace bilateral pleural effusions are present. Mild bibasilar atelectasis. No significant focal consolidation or pneumothorax. Abdomen pelvis findings: Postoperative cholecystectomy. No definite solid organ injury detected. No abdominal ascites or free air. Abundance of stool within the colon. The bladder is nondistended. Distended bladder without focal abnormality. Nonvisualization the uterus presumed post hysterectomy. Delayed images demonstrate normal collecting system. IMPRESSION: 1. Persistent trace bilateral pleural effusions are present. Mild bibasilar atelectasis. No significant focal consolidation or pneumothorax. No definite solid organ injury is present. 2. Postoperative cholecystectomy. 3. No abdominal ascites or free air. 4. Constipation. 5. Post hysterectomy. SL: 12 [facility] 2014-05-09 18:54:33 CT chest, abdomen and pelvis with contrast CLINICAL INFORMATION: Trauma. Pain. COMPARISON: CT abdomen pelvis of 04/17/2014. TECHNIQUE: Multiple axial images of the chest, abdomen and pelvis were performed with IV contrast. No p.o. contrast was given. Chest findings: No mediastinal or substernal hematoma is present. Heart is normal without pericardial effusion. No mediastinal or hilar adenopathy. Persistent trace bilateral pleural effusions are present. Mild bibasilar atelectasis. No significant focal consolidation or pneumothorax. Abdomen pelvis findings: Postoperative cholecystectomy. No definite solid organ injury detected. No abdominal ascites or free air. Abundance of stool within the colon. The bladder is nondistended. Distended bladder without focal abnormality. Nonvisualization the uterus presumed post hysterectomy. Delayed images demonstrate normal collecting system. IMPRESSION: 1. Persistent trace bilateral pleural effusions are present. Mild bibasilar atelectasis. No significant focal consolidation or pneumothorax. No definite solid organ injury is present. 2. Postoperative cholecystectomy. 3. No abdominal ascites or free air. 4. Constipation. 5. Post hysterectomy. SL: 12 [facility] 2014-05-09 18:53:59 NAME: ADRIANNE SANDERS : 1980 SEX: F Ordering Physician: Pancho Burciaga Spine cervical wo contrast CT : May [...] in the lung apices bilaterally. SL: 14 [facility] 2014-05-09 18:53:59 NAME: ADRIANNE SANDERS : 1980 SEX: F Ordering Physician: Pancho Burciaga CLINICAL INDICATION: Neck injury. Comparison Examination: None. FINDINGS: reconstructions not performed on an independent console. of C4 through C6. No focal herniated nucleus pulposus, no neuroforaminal narrowing and no spinal canal stenosis throughout the cervical spine. Slight fibrosis seen in the lung apices bilaterally. [facility] 2014-05-09 18:53:36 NAME: ADRIANNE SANDERS : 1980 SEX: F Ordering Physician: Pancho Burciaga Brain wo contrast CT : May 09, 2014 06:53:00 PM. CLINICAL INDICATION: Head injury. Comparison Examination: None. FINDINGS: There is question of a small low-density area in the anterior left tamia that may be artifactual but cannot exclude small infarct which could be acute. MRI brain may be helpful for further evaluation. The ventricles and sulci are within normal limits [...] negative head CT without contrast. SL: 14 [facility] 2014-05-09 18:53:36 NAME: ADRIANNE SANDERS : 1980 SEX: F Ordering Physician: Pancho Burciaga CLINICAL INDICATION: Head injury. Comparison Examination: None. FINDINGS: may be artifactual but cannot exclude small infarct which could be acute. MRI brain may be helpful for further evaluation. The ventricles and sulci are within normal limits for the patient's age. No evidence for subarachnoid, intraparenchymal or intraventricular hemorrhage. No extra-axial fluid collection, mass effect or shift. Bone windows were obtained and no bony fracture was identified. 1. Question small low-density area in the anterior left tamia that may be artifactual but cannot exclude small infarct which could be acute. MRI brain may be helpful for further evaluation. 2. Otherwise negative head CT without contrast. [facility] 2014-04-17 15:05:00 Name: ADRIANNE SANDERS : 1980 SEX: F Ordering Physician: Gorge Ventura ED Abdomen/Pelvis IV [...] is surgically absent. The liver, spleen, pancreas, adrenals, and kidneys are unremarkable. Bowel is normal [...] Changes of cholecystectomy. Minimal pleural effusions. SL:54 [facility] 2014-04-17 15:05:00 Name: ADRIANNE SANDERS : 1980 SEX: F Ordering Physician: Gorge Ventura CLINICAL INDICATION: Abdominal pain, acute Comparison Examination: None TECHNIQUE: Sequential trans-axial images of the abdomen and pelvis were obtained with a multi-detector helical CT. Coronal and sagittal reconstructions were obtained. Dose: The total exam DLP is 764 mGy-cm. There are minimal pleural effusions. and kidneys are unremarkable. inflammatory process is appreciated. The appendix is well visualized and is unremarkable. There is no abdominal lymphadenopathy, pneumoperitoneum or ascites. renal arteries, mesenteric arteries, and mesenteric veins including the portal vein. The bladder is normal. There is no pelvic lymphadenopathy or ascites. The inguinal regions are unremarkable. Changes of hysterectomy are seen. The visualized skeleton is unremarkable No acute abnormality in the abdomen or pelvis. Changes of cholecystectomy. Minimal pleural effusions. [facility] 2014-03-06 18:35:59 Name: ADRIANNE SANDERS : 1980 Ordering Physician: Tara Sun wo contrast CT : Mar 06, 2014 06:36:00 PM. CLINICAL INDICATION: Confusion Comparison Examination: None. TECHNIQUE: CT of the head was performed without administration of intravenous contrast. Coronal and sagittal reconstructions were obtained and provided as separate series. Total DLP = 1117.5 mGy/cm FINDINGS: The ventricles are normal in [...] evidence of acute intracranial process. SL: 24 [facility] 2014-03-06 18:35:59 Name: ADRIANNE SANDERS : 1980 Ordering Physician: Tara Sun wo contrast CT : Mar 06, 2014 06:36:00 PM. CLINICAL INDICATION: Confusion Comparison Examination: None. TECHNIQUE: CT of the head was performed without administration of intravenous contrast. Coronal and sagittal reconstructions were obtained and provided as separate series. Total DLP = 1117.5 mGy/cm FINDINGS: The ventricles are normal in [...] No CT evidence of acute intracranial process. [facility]
[2025-01-15 18:45] LABS: Absolute Lymphocytes (CBC) 3.9 K/uL (0.7-4.9); Hematocrit 39.6 % (36.0-45.0); Hemoglobin 13.5 g/dL (12.0-15.0); MCH 30.0 pg (27.0-35.0); MCHC 34.2 g/dL (32.0-36.0); MCV 87.7 fL (80-100); MPV 9.3 fL (7.6-11.3); Nucleated RBC Absolute Count 0.0 (0-0); Nucleated Red Blood Cells % 0.1 % (0-0); RBC Red Blood Cell Count 4.51 M/uL (3.86-4.86); White Blood Count 9.60 thou/uL (4.3-10.9)
--- NOTE | 2025-01-15 18:58 | RAD REPORT ---
EXAMINATION: CT ABDOMEN AND PELVIS WITHOUT CONTRAST CLINICAL INDICATION: ABD PAIN TECHNIQUE: CT abdomen and pelvis was performed, without IV contrast, as per department protocol. Axia l, sagittal and coronal reconstructions were obtained. One or more of the following dose reduction techniques were used: Automated exposure control, adjustment of the mA and kV according to the patien t size, and iterative reconstruction. Unless otherwise specified, incidental findings do not require dedicated imaging follow-up. COMPARISON: No prior exam. FINDINGS: The lack of intravenous contrast limits the sensitivity of this exam for evaluation of solid visceral organs, vascular structures, and retroperitoneum. LOWER CHEST: The visualized lung bases are clear. Trace pleural fluid bilaterally. LIVER:Normal in size and contour. No focal lesion. Cholecystectomy clips. SPLEEN: Normal size. No focal lesion. PANCREAS: No mass, ductal dilation, or toya-pancreatic fluid. ADRENALS: Normal; no mass. KIDNEYS AND URETERS: Normal size and contour. No hydronephrosis. URINARY BLADDER: Normal contour. GASTROINTESTINAL TRACT: No evidence of bowel obstruction, significant free fluid, free air or abscess . There is mild diverticulosis coli of the sigmoid colon without diverticulitis. APPENDIX: Appendix surgically absent. LYMPH NODES: No lymphadenopathy. MUSCULOSKELETAL: Mild multilevel spinal degenerative changes. ADDITIONAL FINDINGS: None. IMPRESSION: No acute or concerning abnormalities in the abdomen or pelvis, with evaluation limited by lack of IV contrast.
[2025-01-15 19:03] LABS: ALT/SGPT 31.0 U/L (13-56); AST/SGOT 17.0 U/L (15-37); Albumin 3.7 g/dL (3.4-5.0); Albumin/Globulin Ratio 1.0 (1.1-1.8); Alkaline Phosphatase 102.0 U/L (45-117); Anion Gap 10.5 mEq/L (5.0-15.0); BUN Blood Urea Nitrogen 6.0 mg/dL (7-18); Globulin 3.6 g/dL (2.3-3.5); Glucose Level 115.0 mg/dL (74-106); Lipase 68.0 U/L (13-75); Potassium 3.5 mEq/L (3.5-5.1)
[2025-01-15 19:04] LABS: Sqamous Epithelial <5 /HPF (None Seen); Urine Culture Reflex Order REFLEXED; Urine Microscopic Reflex YN ORDER UMIC
--- NOTE | 2025-01-15 19:14 | ER ---
Nurse's Notes [facility] Name: Francoise Carolina Age: 44 yrs Sex: Female : 1980 Arrival Date: 01/15/2025 Time: 17:55 Bed 8 Private MD: Diagnosis: Abdominal pain, Generalized Presentation: 01/15 18:11 Chief complaint: Patient states: RLQ PAIN 2 WK. Coronavirus screen: At this time, the bp client does not indicate any symptoms associated with coronavirus-19. Ebola Screen: No symptoms or risks identified at this time. Initial Sepsis Screen: Does the patient meet any 2 criteria? No. Patient's initial sepsis screen is negative. Does the patient have a suspected source of infection? No. Patient's initial sepsis screen is negative. Risk Assessment: Do you want to hurt yourself or someone else? Patient reports no desire to harm self or others. Onset of symptoms is unknown. 18:11 Method Of Arrival: Ambulatory bp 18:11 Acuity: MERVAT 3 bp Triage Assessment: 18:12 General: Appears in no apparent distress. Behavior is cooperative, appropriate for age, bp anxious. Pain: Complains of pain in abdomen. EENT: No deficits noted. Neuro: No deficits noted. Cardiovascular: No deficits noted. Respiratory: No deficits noted. GI: Reports lower abdominal pain, nausea. : No signs and/or symptoms were reported regarding the genitourinary system. Derm: No deficits noted. Musculoskeletal: No deficits noted. Historical: - Allergies: 18:12 PENTAZOCINE; bp 18:12 Aspirin; bp 18:12 basamic vinegar; bp 18:12 Naprosyn; bp 18:12 Talwin; bp 18:12 Zofran; migraine; bp 18:12 Nuts (Anaphylaxis); bp 18:12 Demerol; bp - PMHx: 18:12 epilepsy; Hypothyroidism; bp - Immunization history:: Adult Immunizations up to date. - Infectious Disease History:: Denies. - Social history:: Smoking status: Patient denies any tobacco usage or history of. Screenin:13 [facility] ED Fall Risk Assessment (Adult) History of falling in the last 3 months, bp including since admission No falls in past 3 months (0 pts) Confusion or Disorientation No (0 pts) Intoxicated or Sedated No (0 pts) Impaired Gait No (0 pts) Mobility Assist Device Used No (0 pt) Altered Elimination No (0 pt) Score/Fall Risk Level 0 - 2 = Low Risk Oriented to surroundings. Abuse screen: Denies threats or abuse. Denies injuries from another. Nutritional screening: No deficits noted. Tuberculosis screening: No symptoms or risk factors identified. Vital Signs: 18:11 BP 141 / 78; Pulse 65; Resp 16; Temp 97.9; Pulse Ox 97% ; bp 19:23 BP 128 / 75; Pulse 73; Resp 19; Temp 98; Pulse Ox 95% ; vc1 ED Course: 17:59 Patient arrived in ED. im 18:00 Letitia Naranjo FNP-C is [facility]. kb 18:00 Drake Lozano MD is Attending Physician. kb 18:07 Liborio Shelton, YVONNE is Primary Nurse. bp 18:11 Triage completed. bp 18:12 Arm band placed on. bp 18:13 Patient has correct armband on for positive identification. bp 18:30 Initial lab(s) drawn, by me, sent to lab. Urine collected: clean catch specimen, clear. bp Inserted saline lock: 22 gauge in right antecubital area, using aseptic technique. Blood collected. Flushed with 10 mL NS. 18:40 CT Abd/Pelvis - Without Contrast In Process Unspecified. EDMS 19:22 No provider procedures requiring assistance completed. IV discontinued, intact, vc1 bleeding controlled, No redness/swelling at site. Pressure dressing applied. Administered Medications: 18:30 Drug: morphine IVP or IV 4 mg IVP once over 4 mins Route: IVP; Infused Over: 4 mins; bp Site: right antecubital; 19:00 Follow up: Response: No adverse reaction vc1 18:30 Drug: NS 0.9% IV 1000 ml IV at 1 bolus Per protocol; to be given as a bolus over 60 bp minutes Route: IV; Rate: 1 bolus; Site: right antecubital; 19:24 Follow up: IV Status: Completed infusion; IV Intake: 1000ml vc1 18:30 Drug: Promethazine IM 12.5 mg IM once Route: IM; Site: Other; bp 19:24 Follow up: Response: No adverse reaction vc1 Medication: 19:23 VIS not applicable for this client. vc1 Intake: 19:24 IV: 1000ml; Total: 1000ml. vc1 Outcome: 19:13 Discharge ordered by MD. bernard 19:22 Discharged to home ambulatory, vc1 19:22 Condition: stable 19:22 Discharge instructions given to patient, Instructed on discharge instructions, follow up and referral plans. Demonstrated understanding of instructions, follow-up care, 19:23 Patient left the ED. vc1 Signatures: Dispatcher [employer] EDLetitia Anders, PALOMA-Kelsea DOW-Liborio Handley RN RN Carla Bailey RN RN vc1 Ayesha Singh Corrections: (The following items were deleted from the chart) 18:12 18:12 Allergies: Naproxen; bp bp
--- NOTE | 2025-01-15 19:14 | EDPHYS ---
Physician Documentation [facility] Name: Francoise Carolina Age: 44 yrs Sex: Female : 1980 Arrival Date: 01/15/2025 Time: 17:55 Bed 8 Private MD: ED Physician Drake Lozano HPI: 01/15 18:40 This 44 yrs old Female presents to ER via Ambulatory with complaints of Abdominal Pain. kb 18:40 Pt is a 44 year old female who presents for right sided abd pain with nausea that kb started 2 weeks ago. States she noticed swelling to RUQ yesterday after rubbing the area. Denies fever, vomiting. Reports she always has diarrhea. . Historical: - Allergies: 18:12 PENTAZOCINE; bp 18:12 Aspirin; bp 18:12 basamic vinegar; bp 18:12 Naprosyn; bp 18:12 Talwin; bp 18:12 Zofran; migraine; bp 18:12 Nuts (Anaphylaxis); bp 18:12 Demerol; bp - PMHx: 18:12 epilepsy; Hypothyroidism; bp - Immunization history:: Adult Immunizations up to date. - Infectious Disease History:: Denies. - Social history:: Smoking status: Patient denies any tobacco usage or history of. ROS: 18:39 Constitutional: As per HPI kb Exam: 18:39 Constitutional: This is a well developed, well nourished patient who is awake, alert, kb and in no acute distress. Head/Face: Normocephalic, atraumatic. ENT: Moist Mucous membranes Cardiovascular: Regular rate Respiratory: Respirations even and unlabored. No increased work of breathing. Talking in full sentences Skin: Warm, dry with normal turgor. Normal color. MS/ Extremity: Pulses equal, no cyanosis. Neurovascular intact. Full, normal range of motion. Neuro: Awake and alert, GCS 15, oriented to person, place, time, and situation. 18:39 Abdomen/GI: Inspection: abdomen appears normal, Bowel sounds: normal, Palpation: soft, in all quadrants, moderate abdominal tenderness, in the right upper quadrant and right lower quadrant, Vital Signs: 18:11 BP 141 / 78; Pulse 65; Resp 16; Temp 97.9; Pulse Ox 97% ; bp 19:23 BP 128 / 75; Pulse 73; Resp 19; Temp 98; Pulse Ox 95% ; vc1 MDM: 18:00 Medical Screening Exam initiated kb 18:39 Data reviewed: vital signs, nurses notes. kb 19:12 Differential diagnosis: gastritis, gastroesophageal reflux disease, GI Bleed, kb Hepatitis, non-specific abd pain, pancreatitis. Counseling: I had a detailed discussion with the patient and/or guardian regarding the historical points, exam findings, and any diagnostic results supporting the discharge/admit diagnosis, lab results, radiology results, the need for outpatient follow up, a family practitioner, to return to the emergency department if symptoms worsen or persist or if there are any questions or concerns that arise at home. ED course: Pt will follow up with PCP tomorrow . 01/15 18:06 Order name: CBC with Diff; Complete Time: 19:03 kb 01/15 18:06 Order name: CMP; Complete Time: 19:05 kb 01/15 18:06 Order name: Lipase; Complete Time: 19:05 kb 01/15 18:06 Order name: UA Rfx Sin Cult if indicated; Complete Time: 19:06 kb 01/15 19:08 Order name: Urine Culture EDAL 01/15 18:06 Order name: CT Abd/Pelvis - Without Contrast; Complete Time: 18:59 kb 01/15 18:06 Order name: IV Saline Lock; Complete Time: 18:30 kb 01/15 18:06 Order name: Labs collected and sent; Complete Time: 18:30 kb Administered Medications: 18:30 Drug: morphine IVP or IV 4 mg IVP once over 4 mins Route: IVP; Infused Over: 4 mins; bp Site: right antecubital; 19:00 Follow up: Response: No adverse reaction vc1 18:30 Drug: NS 0.9% IV 1000 ml IV at 1 bolus Per protocol; to be given as a bolus over 60 bp minutes Route: IV; Rate: 1 bolus; Site: right antecubital; 19:24 Follow up: IV Status: Completed infusion; IV Intake: 1000ml vc1 18:30 Drug: Promethazine IM 12.5 mg IM once Route: IM; Site: Other; bp 19:24 Follow up: Response: No adverse reaction vc1 Disposition: 01/16 07:01 Co-signature as Attending Physician, Drake Lozano MD I reviewed the patient's care rn provided by the Advanced Practice Provider and agree with the diagnosis and treatment plan. Disposition Summary: 01/15/25 19:13 Discharge Ordered Notes: Location: Home kb Condition: Stable kb Diagnosis - Abdominal pain, Generalized kb Followup: kb - With: Emergency Department - When: As needed - Reason: Worsening of condition Followup: kb - With: Private Physician - When: 2 - 3 days - Reason: Recheck today's complaints, Continuance of care, Re-evaluation by your physician Discharge Instructions: - Discharge Summary Sheet kb - Abdominal Pain, Adult, [id number] kb Forms: - Medication Reconciliation Form kb - Antibiotic Education kb - Prescription Opioid Use kb - Patient Portal Instructions kb - Leadership Thank You Letter kb Signatures: Dispatcher [employer] EDMS Letitia Naranjo, [facility] [employer]-Ckb Drake Lozano MD MD rn Peltier, Brian, RN RN Carla Bailey RN vc1 Corrections: (The following items were deleted from the chart) 01/15 18:12 18:12 Allergies: Naproxen; bp bp
[2025-01-16 01:40] VITALS: BP 128/75; TEMP 98; O2SAT 95
== END 2025-01-15 19:23 | disposition home or self-care (01) ==
LOC: ER 17:55
DX: R10.84 Generalized abdominal pain (principal)
CPT/HCPCS: 96361; 87088; 85025; 81001; 87086; 36415; 83690; 80053; 74176; 96372; 96374; 99284; J2550; J7030